=== PATIENT | male | born 1945 | race African-American/Black ===

== ENCOUNTER 2024-08-10 13:14 | Inpatient (IN) | payer MEDICARE, OTHER ==
[2024-08-10] VITALS (7 sets, daily range): BP systolic 70–157; BP diastolic 49–90; PULSE 10–125; RESP 14–31; TEMP 93.4; O2SAT 95–98
[~2024-08-10] VITALS: Ht 180.3 cm; Wt 92.2 kg
[~2024-08-10 13:14] MED LIST: ATOR10TA PO; CARB-112 PO; GABA-1308 PO
[2024-08-10] MEDS: ETOMIDATE (2MG/ML) 20ML VIAL IV ONE (13:45)
--- NOTE | 2024-08-10 13:46 | ED.PDOC ---
Altered Mental Status HPI Comments 78y M who presents to the ED via EMS for chief complaint of ALOC. EMS states pt family called EMS for well-check. Pt family states pt was last well time was 3 weeks prior and states pt normally is ambulatory and is able to perform activities of daily living. per EMS, arrived on scene and noted pt was on the floor in contracted position and altered. Pt has normal vitals with Accu check of 93 but is ax0x0. EMS states pt noted to have fecal incontinence. Pt in the ED, has stable vitals but is not alert and oriented. Pt unable to answer any other questions at this time. Chief Complaint: ALOC Time Seen by MD: 13:37 Primary Care Provider: unknown Reviewed Notes: Nurses Notes Allergies: Coded Allergies: UNOBTAINABLE (Unverified , 08/10/24) Information Source: Relative (Child), Emergency Med Personnel Mode of Arrival: EMS Past Medical History PAST MEDICAL HISTORY: Unknown Past Medical History (Other): parkinson's, per daughter Surgical History: Unknown Family History Family History: Unknown Social History Smoker: Unknown Alcohol: Unknown Drugs: Unknown Lives In: Home Constitutional: denies: chills, diaphoresis, fatigue, fever, malaise, sweats, weakness, others EENTM: denies: blurred vision, double vision, ear bleeding, ear discharge, ear drainage, ear pain, ear ringing, eye pain, eye redness, hearing loss, mouth pain, mouth swelling, nasal discharge, nose bleeding, nose congestion, nose pain, photophobia, tearing, throat pain, throat swelling, voice changes, others Respiratory: denies: cough, hemoptysis, orthopnea, SOB at rest, shortness of breath, SOB with excertion, stridor, wheezing, others Cardiovascular: denies: chest pain, dizzy spells, diaphoresis, Dyspnea on exertion, edema, irregular heart beat, left arm pain, lightheadedness, palpitations, PND, syncope, others Gastrointestinal: denies: abdomen distended, abdominal pain, blood streaked bowels, constipated, diarrhea, dysphagia, difficulty swallowing, hematemesis, melena, nausea, poor appetite, poor fluid intake, rectal bleeding, rectal pain, vomiting, others Genitourinary: denies: burning, dysuria, flank pain, frequency, hematuria, incontinence, penile discharge, penile sore, pain, testicle pain, testicle swelling, urgency, others Neurological: denies: dizziness, fainting, headache, left sided numbness, left sided weakness, numbness, paresthesia, pre-existing deficit, right sided numbness, right sided weakness, seizure, speech problems, tingling, tremors, weakness, others Musculoskeletal: denies: back pain, gout, joint pain, joint swelling, muscle pain, muscle stiffness, neck pain, others Integumetry: denies: bruises, change in color, change in hair/nails, dryness, laceration, lesions, lumps, rash, wounds, others Allergic/Immunocompromised: denies: Difficulty Healing, Frequent Infections, Hives, Itching, others Hematologic/Lymphatic: denies: anemia, blood clots, easy bleeding, easy bruising, swollen glands, others Unable to Obtain due to: Altered Mental Status All Other Systems: Reviewed and Negative Physical Exam General Appearance: Moderate Distress, Thin, Other (pt altered, pinpoint pupils, in contracted position, with noted fecal incontinence) HEENT: Other (pupiuls pin point) Neck: Full Range of Motion, Non-Tender, Normal, Normal Inspection Respiratory: Chest Non-Tender, Lungs Clear, No Accessory Muscle Use, No Respiratory Distress, Normal Breath Sounds Cardiovascular: No Edema, No JVD, No Murmur, No Gallop, Normal Peripheral Pulses, Regular Rate/Rhythm Breast Exam: Deferred Gastrointestinal: No Organomegaly, Non Tender, No Pulsatile Mass, Normal Bowel Sounds, Soft, Other (fecal incontinent) Genitalia: Deferred Pelvic: Deferred Rectal: None Extremities: Other (stage 4 decub uclers noted on L hip. left left flank and posterior lateral cw also stage 2 decub ulcers. all li,bs with flexion contracture) Neurologic: Other (unresponsive, but moves spontaneously, not following commands) Cerebellar Function: NOT DONE Reflexes: NOT DONE Skin: Wounds (left occipital, left posterior lateral chest, left flank, left gluteal decubitus ulcers, all stage 2, except the gluteal is stage 4) Lymphatic: No Adenopathy Was a procedure done? Was a procedure done?: Yes Sedation Sedation?: Yes Informed consent obtained: No Sedation start time: 13:23 Sedation end time: 13:24 Sedation total time: 1 Sedation provider statement: etomidate,40mg, versed 5mg iv given with good sedative effect Intubation Indication: Altered Mental Status Prep: No Preoxygenation Pretreated with: Other (etomidate) Informed consent obtained: No Risks/benefits/alt described: No Notes pt was successfully intubated with the assist of a bougie and on the first pass, with visualization of the Uvula. stepping off of the tracheal rings felt with advancement of the bougie. a 7.5 e was slid over the bougie with ease, condensation immediately seen with each breath, CO2 detector color changed. O2 saturation into the mid 90%. bilateral BSs heard and equal, no epigastric gurgling.cxr confirmed position. no complications Differential Diagnosis (ALOC) Differential Diagnosis: Dehydration, Hypoglycemia, DKA, Encephalopathy, Meningitis, Sepsis, Hypoxemia, Seizure, Closed Head Injury, CVA, Mass Lesion, SAH, Drug Overdose, ETOH Intoxication, Heart Failure, Renal Failure, Other (sepsis, rhabdomyolysis, exposure to cold) Other Differential Diagnosis altered mental status, cva, intracranial mass, ich, falling, rhabdomyolysis X-Ray, Labs, Meds, VS Vital Signs Date Time Temp Pulse Resp B/P (MAP) Pulse Ox O2 Delivery O2 Flow Rate FiO2 08/10/24 15:14 94.0 82 22 120/58 (78) 97 94.0 08/10/24 15:00 08/10/24 14:57 93.4 93 14 121/49 98 100 93.4 08/10/24 14:45 85 112/54 (73) 08/10/24 14:39 84 08/10/24 14:30 80 118/50 (72) 08/10/24 14:25 Mechanical Ventilator+ 100 100 08/10/24 14:18 121/49 08/10/24 14:15 85 19 121/49 (73) 08/10/24 14:00 88 24 68/34 (45) 08/10/24 13:45 93 24 92/62 (72) 08/10/24 13:30 92 14 92/54 (67) 08/10/24 13:16 93.4 93 3 118/76 (90) 98 08/10/24 13:15 93 25 109/68 (82) Lab Test 08/10/24 15:07 08/10/24 14:08 08/10/24 13:42 Range/Units Blood Gas Specimen Type Arterial Blood Gas Sample Site Right radial Blood Gas Patient Temperature 37.0 Arterial Blood Date Drawn [id number] Arterial Blood pH 7.431 7.350-7.450 Arterial Blood Partial Pressure CO2 43.2 35.0-48.0 mmHg Arterial Blood Partial Pressure O2 509.1 *H 83.0-108.0 mmHg Arterial Blood HCO3 28.1 H 21.0-28.0 mmol/L Arterial Blood Oxygen Saturation 99.7 H 94.0-98.0 % Arterial Blood Base Excess 3.3 H -2.0-3.0 mmol/L Arterial Blood Oxyhemoglobin 98.9 H 94.0-98.0 % Arterial Blood Carboxyhemoglobin 0.1 L 0.5-1.5 % Arterial Blood Methemoglobin 0.7 0.0-1.5 % Kirby Test Modified Blood Gas Total Hemoglobin 15.80 13.5-17.5 g/dL Blood Gas Set Respiration Rate 14.0 Blood Gas Modality Vent - ac FiO2 % 100.0 Blood Gas Tidal Volume 500.0 Blood Gas PEEP or CPAP 5.0 Blood Gas Critical Value Read Back Yes Blood Gas Notified Whom Dr. su staples Blood Gas Notified Time [id number] Blood Gas Notified By Dental Equipment Mechanic don garrido White Blood Count 11.3 H 4.4-10.8 10^3/uL Red Blood Count 5.88 4.5-5.90 10^6/uL Hemoglobin 17.6 H 13.5-17.5 g/dL Hematocrit 54.0 H 41.0-53.0 % Mean Corpuscular Volume 91.7 80.0-100.0 fL Mean Corpuscular Hemoglobin 30.0 28.0-32.0 pg Mean Corpuscular Hemoglobin Concent 32.7 32.0-36.0 g/dL Red Cell Distribution Width 13.5 11.8-14.3 % Platelet Count 62 L 140-450 10^3/uL Mean Platelet Volume 9.4 6.9-10.8 fL Neutrophils (%) (Auto) 90.6 H 37.0-80.0 % Lymphocytes (%) (Auto) 4.0 L 10.0-50.0 % Monocytes (%) (Auto) 5.2 0.0-12.0 % Eosinophils (%) (Auto) 0.1 0.0-7.0 % Basophils (%) (Auto) 0.1 0.0-2.0 % Neutrophils # (Auto) 10.3 H 1.6-8.6 10 ^3/uL Lymphocytes # (Auto) 0.4 0.4-5.4 10 ^3/uL Monocytes # (Auto) 0.6 0-1.3 10 ^3/uL Eosinophils # (Auto) 0 0-0.8 10 ^3/uL Basophils # (Auto) 0 0-0.2 10 ^3/uL Nucleated Red Blood Cells 0.2 % Platelet Estimate Decreased Sodium Level 170 *H 136-145 mmol/L Potassium Level 5.0 3.5-5.1 mmol/L Chloride Level 122 H 98-107 mmol/L Carbon Dioxide Level 30 20-31 mmol/L Anion Gap 18 H 5-15 Blood Urea Nitrogen 80 *H 9-23 mg/dL Creatinine 1.73 H 0.700-1.30 mg/dL Glomerular Filtration Rate Calc 40 >90 mL/min BUN/Creatinine Ratio 46.2 H 10.0-20.0 Serum Glucose 127 H 74-106 mg/dL Lactic Acid Level 0.7 0.4-2.0 mmol/L Calcium Level 10.1 8.7-10.4 mg/dL Total Bilirubin 2.0 H 0.2-1.0 mg/dL Aspartate Amino Transferase (AST) 149 H 13-40 U/L Alanine Aminotransferase (ALT) 141 H 7-40 U/L Alkaline Phosphatase 124 H 46-116 U/L Ammonia 19 11-32 umol/L Creatine Kinase 2313 H 46-171 U/L Troponin I High Sensitivity 34 </=54 ng/L Total Protein 7.5 5.7-8.2 g/dL Albumin 4.0 3.2-4.8 g/dL Urine Color Pending Urine Clarity Pending Urine pH Pending Urine Specific [place] Pending Urine Protein Pending Urine Ketones Pending Urine Blood Pending Urine Nitrite Pending Urine Bilirubin Pending Urine Urobilinogen Pending Urine Leukocyte Esterase Pending Urine RBC Pending Urine WBC Pending Urine Squamous Epithelial Cells Pending Urine Bacteria Pending Urine Glucose Pending Urine Opiates Screen Pending Urine Fentanyl Screen Pending Urine Barbiturates Screen Pending Urine Phencyclidine Screen Pending Urine Amphetamines Screen Pending Urine Benzodiazepines Screen Pending Urine Cocaine Screen Pending Urine Cannabinoids Screen Pending Current Medications Medications (Trade) Dose Ordered Sig/Akiko Route Start Time Stop Time Status Last Admin Sodium Chloride 2,250 ml @ 2,250 mls/hr ONCE ONCE IV 08/10/24 13:45 08/10/24 14:44 DC 08/10/24 13:59 Piperacillin Sod/ Tazobactam Sod 100 ml @ 100 mls/hr ONCE ONCE IV 08/10/24 14:00 08/10/24 14:59 DC 08/10/24 14:06 Midazolam HCl (Versed Injection) 5 mg ONCE ONCE IV 08/10/24 13:45 08/10/24 13:46 DC 08/10/24 13:59 Midazolam HCl 50 ml @ 1 mls/hr Q24H IV 08/10/24 14:00 08/10/24 14:18 [place] [id number] Ph: [phone] DIAGNOSTIC IMAGING Diagnostic Imaging Report : [id number] Signed PATIENT: JASEN DIXON ACCT: [id number] UNIT: [id number] : 1945 LOC: ER ROOM / BED: / AGE / SEX: 78 / M ADM STATUS: REG ER SERVICE ORDERING PHYSICIAN: NAVIN STAPLES MD PROCEDURE(s): CXRP - CHEST PORTABLE REASON: POST INTUBATION ORDER NUMBER(s): [id number], ACCESSION NUMBER(s): [id number] CHEST RADIOGRAPH Indication: POST INTUBATION Technique: Single frontal view of the chest was obtained Comparison: None FINDINGS: Lines and Tubes: Enteric tube and endotracheal tube are in satisfactory position. Lungs: No focal consolidation. Elevation of the left hemidiaphragm. Pleura: No effusion. No pneumothorax. Cardiomediastinal contours: Unremarkable Bones: No acute osseous abnormality. IMPRESSION: No acute cardiopulmonary disease. Elevation of the left hemidiaphragm. Enteric tube and endotracheal tube are in satisfactory position. ATED BY: PRETTY BALLARD DO DICTATED DATE/TIME: 08/10/24 1346 SIGNED BY: PRETTY BALLARD DO SIGNED DATE/TIME: 08/10/24 134 CC: Time of 1ST Reevaluation: 14:05 Reevaluation 1ST: Unchanged (lubrication servicer- nsr) Time of 2ND Reevaluation: 14:03 Reevaluation 2ND: Improved (pt is intubated. sepsis protocol initiated, head ct ordered. airway secured and protected. cardiac c=monitor- nsr) Time of 3RD Reevaluation: 15:43 Reevaluation 3RD: Unchanged (lubrication servicer, nsr) Patient Education/Counseling: Other (pt altered) Family Education/Counseling: No Family Present Additional Information - I reviewed the following notes from patient's past medical encounters: - The following tests were ordered, and results were reviewed by me: (Labs, X- Ray, EKG): chest x-ray, ABG, respiratory culture, EKG x3, CBC, CMP, UA, ammonia, drug screen, CK, troponin x3, blood culture, lactic acid, - Additional information was gathered from interviewing the following independent Historian: (Family, Other Providers, EMT): EMS - I reviewed and agreed with the following test results read by other provider: (X-ray, CT, US): radiologist - I discussed treatments and results with medical personnel and: (consultants, family): none pt's daughter came by and states that she only spoke to pt 3 weeks ago and can tell me no new information pt is severely dehydrated, seems to have been down for sometime. he has evidence of renal failure, contractions, decubitus ulcers pt does not have evidence of a stroke. he likely fell and was down for many days or longer. now he has severe sepsis, hypernatremia, renal failure, encephalopathy, likely septic from the gluteal wound. he will be admitted to ICU Sepsis Sepsis Reasesment Focused Exam Sepsis focused exam: focus exam completed (pt remains intubated, and unchanged), time: (1624) Departure 1 Departure Time of Disposition: 15:57 Impression: Primary Impression: Altered mental state Qualified Codes: R40.0 - Somnolence Additional Impressions: Decubitus ulcers Qualified Codes: L89.103 - Pressure ulcer of unspecified part of back, stage 3 Sepsis Qualified Codes: A41.9 - Sepsis, unspecified organism Severe dehydration Hypernatremia Renal failure Qualified Codes: N19 - Unspecified kidney failure Rhabdomyolysis Qualified Codes: M62.82 - Rhabdomyolysis Disposition: 09 ADMITTED INPATIENT Admit to: ICU Condition: Critical Critical Care Note Critical Care Time?: Yes (90 min-critical care time only) Critical care comment: due to concerns for patient's condition deteriorating, the care required my highest level of attention and readiness to intervene. i reviewed any external notes, communicatd with medical personnel, assessed the pt, ordered the proper tests and treatments, and reassessed for response, formulated a plan of care. the critical care time excludes any procedures Stability Stability form required: No Heart Score Heart Score: Heart Score Response (Comments) Value History N/A 0 EKG N/A 0 Age N/A 0 Risk Factors N/A 0 Troponin N/A 0 Total 0 I personally scribed for NAVIN STAPLES MD ([facility] on 08/10/24 at 13:46. Electronically submitted by Viki Kimbrough ([facility] I personally scribed for NAVIN STAPLES MD ([facility] on 08/10/24 at 14:22. Electronically submitted by Viki Kimbrough ([facility] [place] NAVIN STAPLES MD Aug 10, 2024 13:46
[2024-08-10] MEDS: MIDAZOLAM HCL 5 MG/ML-1ML VIAL IV ONE (13:59)
[2024-08-10] MEDS: SODIUM CHLORIDE 0.9% 2,250 ML IV ONE (13:59)
[2024-08-10] MEDS: PIPERACILLIN-TAZO 4.5GM 100 ML IV ONE (14:06)
[2024-08-10] MEDS: MIDAZOLAM DRIP 50 mg/50mL 50 ML IV ONE (14:17)
[2024-08-10] MEDS: MIDAZOLAM DRIP 50 mg/50mL 50 ML IV SCH (14:18)
--- NOTE | 2024-08-10 14:41 | ECG ---
[facility] Test Date: 2024-08-10 Test Time: 14:39:23 Pat Name: JASEN DIXON Department: ER Room: [address] [place] [address] Gender: M Pipe Changer: ULYSSES : 1945 Requested By: NAVIN AGUILAR Order Number: [id number] Reading MD: Mikael Briscoe Measurements Intervals [place] Rate: 84 P: 92 FL: 133 QRS: 82 QRSD: 105 T: 66 QT: 422 QTc: 499 Interpretive Statements Sinus rhythm Borderline right axis deviation Nonspecific T abnormalities, anterior leads Borderline prolonged QT interval Electronically Signed On 08-11-2024 14:19:49 PST by Mikael Briscoe Please click the below link to view image of tracing.
[2024-08-10 14:43] LABS: Eosinophils # (auto) 0 10 ^3/uL (0-0.8); Eosinophils % (auto) 0.1 % (0.0-7.0); Hemoglobin 17.6 g/dL (13.5-17.5); Lymphocytes # (auto) 0.4 10 ^3/uL (0.4-5.4); Monocytes # (auto) 0.6 10 ^3/uL (0-1.3); Platelet Count (auto) 62 10^3/uL (140-450); White Blood Cell 11.3 10^3/uL (4.4-10.8)
[2024-08-10 14:44] LABS: Basophils # (auto) 0 10 ^3/uL (0-0.2); Basophils % (auto) 0.1 % (0.0-2.0); Mean Corpuscular Hgb Conc. 32.7 g/dL (32.0-36.0); Mean Corpuscular Volume 91.7 fL (80.0-100.0); Monocytes % (auto) 5.2 % (0.0-12.0); Neutrophils # (auto) 10.3 10 ^3/uL (1.6-8.6); Neutrophils % (auto) 90.6 % (37.0-80.0); Nucleated Red Blood Cells % 0.2 %; Red Blood Cells 5.88 10^6/uL (4.5-5.90); Red Cell Distribution Width 13.5 % (11.8-14.3)
[2024-08-10 14:58] LABS: Platelet Estimate Decreased
[2024-08-10] MEDS: VANCOMYCIN 1GM/250ML KIT 250 ML IV ONE (15:00)
[2024-08-10 15:38] LABS: Anion Gap 18 (5-15); BUN/Creatinine Ratio 46.2 (10.0-20.0); Calcium 10.1 mg/dL (8.7-10.4); Carbon Dioxide 30 mmol/L (20-31)
[2024-08-10 15:39] LABS: Total Protein 7.5 g/dL (5.7-8.2)
--- NOTE | 2024-08-10 15:53 | DVH ---
EXAM: CT Head Without Intravenous Contrast CLINICAL INDICATION: altered TECHNIQUE: Axial computed tomography images of the head/brain without intravenous contrast. This CT exam was performed using one or more of the following dose reduction techniques: automated exposure control, adjustment of the mA and/or kV according to patient size, and/or use of iterative reconstru ction technique. RADIATION DOSE: CTDlvol= 67 mGy, DLP= 1325 mGy-cm COMPARISON: None FINDINGS: BRAIN AND EXTRA-AXIAL SPACES: The cerebral and cerebellar sulci are prominent consistent with brain atrophy. Areas of decreased attenuation in the deep cerebral white matter are consistent with small vessel ischemic/degenerative changes. No acute intracranial hemorrhage, midline shift or mass effect . BONES/JOINTS: Unremarkable. No acute fracture. SOFT TISSUES: Unremarkable. SINUSES: Unremarkable as visualized. No acute sinusitis. MASTOID AIR CELLS: Unremarkable as visualized. No mastoid effusion. OTHER FINDINGS: If symptoms persists, further evaluation with MRI is recommended. . . . IMPRESSION: 1. No acute intracranial hemorrhage, midline shift or mass effect. 2. Generalized brain atrophy. 3. Small vessel ischemic/degenerative changes. 4. If symptoms persists, further evaluation with MRI is recommended. . HS:Y
[2024-08-10 15:55] LABS: Alanine Aminotransferase 141 U/L (7-40); Alkaline Phosphatase 124 U/L (46-116); Aspartate Aminotransferase 149 U/L (13-40); Chloride 122 mmol/L (98-107); Creatine Kinase IFCC 2313 U/L (46-171); Glucose 127 mg/dL (74-106)
[2024-08-10 16:00] LABS: Blood Urea Nitrogen 80 mg/dL (9-23); Sodium 170 mmol/L (136-145)
[2024-08-10 16:12] LABS: Base Excess 3.3 mmol/L (-2.0-3.0)
[2024-08-10] MEDS ORDERED: VANCOMYCIN PER PHARMACY 0 MG IV SCH (16:15)
[2024-08-10 16:24] LABS: Amphetamine Screen, Urine Neg (NEGATIVE); Barbiturate Scree,Urine Neg (NEGATIVE); Benzodiazephine Screen, Urine Neg (NEGATIVE); Cocaine Screen, Urine Neg (NEGATIVE); Opiate Scree,Urine Neg (NEGATIVE); Phencyclidine Screen, Urine Neg (NEGATIVE)
[2024-08-10 16:30] LABS: Urine Bacteria FEW /hpf (None Seen); Urine Blood Negative /uL (Negative); Urine Clarity Turbid (Clear); Urine Color Dark-Yellow (Yellow); Urine Hyaline Cast FEW /lpf (0 - 2); Urine Mucus FEW (None Seen); Urine Protein, UAD Negative (Negative); Urine Specific Gravity 1.021 (1.001-1.035); Urine Squamous Epithelial Cell FEW /hpf (<5); Urine Urobilinogen 4 mg/dL (Negative); Urine WBC 10 /hpf (0 - 3)
[2024-08-10 17:03] LABS: Cannabinoid Screen, Urine Neg (NEGATIVE)
[2024-08-10] MEDS: NOREPINEPHRINE 8 MG/250ML KIT 250 ML IV SCH (17:14)
[2024-08-10] MEDS: NOREPINEPHRINE 8 MG/250ML KIT 250 ML IV ONE (17:15)
--- NOTE | 2024-08-10 20:08 | DVH ---
EXAM: XY CHEST PORTABLE CLINICAL HISTORY: CENTRAL LINE PLACEMENT TECHNIQUE: Single AP view of the chest WID: COMPARISON: XY CHEST PORTABLE on DOS: 08/10/24 FINDINGS: Lines and tubes: Right IJ central venous catheter with the tip projecting over the mid SVC. Endotrach eal tube with the tip projecting 4.4 cm above the anastasia. There is a gastric tube descending beneath the level of the diaphragm and tip not visualized in field of view. Chest: The heart size and pulmonary vasculature is within normal limits. No pleural effusion, pneumothorax, or consolidation. The osseous structures are grossly intact. IMPRESSION: 1. No acute cardiopulmonary abnormality. 2. Right IJ central venous catheter with tip projecting over the mid SVC. 3. Endotracheal tube projects 4.4 cm above the anastasia. 4. Gastric tube descends beneath the level of the diaphragm and tip not visualized in field of view.
--- NOTE | 2024-08-10 20:35 | DVHNC2 ---
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) Indication: Other (severe sepsis) Room prepared for procedure: Yes Sheet Combining Operator performed hand hygien: Yes Maximal sterile barrier precau: Mask/Eye shield, Sterile gown, Cap, Sterlie gloves, Large sterlie drape Skin Preparation: Chlorhexidine gluconate, Providine iodine Skin preparation completely dr: Yes Insertion site: Right, Supraclavicular Central line catheter type: [id number] dialysis Number of lumens: 3 Central line exchanged over a: Yes Antiseptic ointment applied to: Yes Post Assessment: Chest X-Ray, Proper placement, No Pneumothorax Informed consent obtained: Yes Risks/benefits/alt described: Yes Notes PROCEDURE VP LAB: MELLISSA HWANG, PGY1 ATTENDING PHYSICIAN: CONSENT: During the informed consent discussion regarding the procedure, or treatment, I explained the following to the patient/designee: a. Nature of the procedure or treatment and who will perform the procedure or treatment. b. Necessity for procedure and the possible benefits. c. Risks and complications (most common and serious). d. Alternative treatments and the risks, benefits and side effects of each (including no treatment). e. Likelihood of the patient achieving his/her goals without this procedure and surgery treatment. f. Problems that might occur during the recuperation. PROCEDURE SUMMARY: The [facility] Central Line Insertion Practices form was completed by an independent observer starting with the first handwash prior to starting sterile technique. A time out was performed. My hands were washed immediately prior to the pro cedure. I wore a surgical cap, mask with protective eyewear, full gown and sterile gloves throughout the procedure. The patient was placed in Trendelenburg position. RIGHT chest region was prepped using chlorhexidine scrub and draped in sterile fashion using a full drape and sterile probe cover and sterile gel employed. The medial and lateral heads of the sternocleidomastoid muscle were identified as was the carotid pulse. The Internal Jugular vein was identified using the ultrasound. Anesthesia was achieved over the vein using 1% lidocaine. Using real-time out of plane guidance, the introducer needle was inserted into the Internal Jugular vein under direct ultrasound visualization. Venous blood was withdrawn. The syringe was removed and a guidewire was advanced into the introducer needle. The guidewire was visualized in the Internal Jugular Vein by ultrasound. A small i ncision was made at the skin surface with a scalpel and the introducer needle was exchanged for a dilator over the guidewire. After appropriate dilation was obtained. The wire was removed and the catheter was sutured in place. A sterile sorbaview shield was placed over the catheter at the insertion site. The patient tolerated the procedure without any hemodynamic compromise. At time of procedure completion, all ports aspirated and flushed properly. Post-procedure chest x-ray is pending at this time. Estimated blood loss is 5ml. Date of Service: Aug 10, 2024 Billing Provider: ASHU MARY MD Common Visit Codes: PROCEDURE ONLY Procedure Codes: 78064-CRCLHR NON-TUNNEL CV CATH MELLISSA MONTOYA RESIDENT Aug 10, 2024 20:35 ASHU MARY MD Aug 11, 2024 11:41
[2024-08-10] MEDS: fentaNYL Drip 2500mCg/250mlNS 250 ML IV SCH (21:30)
[2024-08-10 21:46] LABS: Potassium 4.4 mmol/L (3.5-5.1)
[2024-08-10 21:47] LABS: Anion Gap 14 (5-15); Calcium 9.1 mg/dL (8.7-10.4); Carbon Dioxide 27 mmol/L (20-31)
[2024-08-10 21:52] LABS: BUN/Creatinine Ratio 42.5 (10.0-20.0)
[2024-08-10] MEDS ORDERED: VANCOMYCIN 1GM/250ML KIT 200 ML IV SCH (22:00)
[2024-08-10 22:18] LABS: Chloride 127 mmol/L (98-107); Glucose 136 mg/dL (74-106)
[2024-08-10 22:20] LABS: Blood Urea Nitrogen 85 mg/dL (9-23); Sodium 168 mmol/L (136-145)
--- NOTE | 2024-08-10 22:34 | DVHINCON2 ---
Date of service: Aug 10, [address] Newman Reason for Consultation Acute respiratory failure History of Present Illness 78-year-old man history unknown who was brought in by EMS due to acute altered level of consciousness. Family called EMS for a well check. He was last seen well three weeks prior. He was normally ambulatory. He was perform activities of daily living. Per EMS report patient was found on the floor in a contracted position and altered. He was not oriented. He was noted to have fecal incontinence. He was currently sedated, intubated on mechanical ventilator. Pulmonary consultation is called due to acute respiratory failure mechanical ventilator management. Review of systems: 14 point review of systems unable to be obtained due to patient's critical condition. Past medical history: Parkinson's Past surgical history: Unable to obtain due to patient's critical condition. Medications: Reviewed Allergies: Unobtainable Family history: Unable to obtain due to patient's critical condition. Social history: He was at home. Rest of social history unknown. Allergies: Coded Allergies: UNOBTAINABLE (Unverified , 08/10/24) Current Medications Current Medications Medications (Trade) Dose Ordered Sig/Akiko Route PRN Reason Start Time Stop Time Status Last Admin Vancomycin HCl 200 ml @ 200 mls/hr Q12HR IV 08/10/24 22:00 UNV Midazolam HCl 50 ml @ 1 mls/hr Q24H IV 08/10/24 14:00 08/10/24 14:18 Vancomycin HCl 0 ml @ 0 mls/hr UD IV 08/10/24 16:15 Norepinephrine Bitartrate 250 ml @ 3.75 mls/hr Q24H IV 08/10/24 17:00 08/10/24 17:14 Pantoprazole Sodium (Protonix) 40 mg DAILY IV 08/11/24 10:00 Fentanyl Citrate 250 ml @ 2.5 mls/hr Q24H IV 08/10/24 21:30 Meropenem 50 ml @ 17 mls/hr Q12HR IV 08/10/24 22:00 Vital Signs Vital Signs Date Time Temp Pulse Resp B/P (MAP) Pulse Ox O2 Delivery O2 Flow Rate FiO2 08/10/24 20:23 122 23 70/51 (57) 95 30 08/10/24 18:45 97.2 97.2 08/10/24 14:25 Mechanical Ventilator+ Physical Exam Gen.: Patient lying in bed in medical ICU. Sedated, intubated on mechanical ventilator. Head: Normocephalic, atraumatic. Eyes: PERRLA. Ears: Normal external anatomy. Throat: Endotracheal tube and orogastric tube in place. Neck: Supple, trachea midline. Chest: Transmitted breath sounds bilaterally. Decreased air entry bilaterally. No wheezing. Bibasilar crackles. Cardio vascular: Positive S1, positive S2. Regular rate and rhythm. Abdomen: Positive bowel sounds in all 4 quadrants. Soft, nontender, nondistended. : Welch in place. Normal external genitalia. Rectal: Deferred Skin: Warm, dry. Intact. Extremities: 2+ radial pulses bilaterally. No lower extremity edema. Neuro: Sedated. Labs/Diagnostic Data Labs Test 08/10/24 20:30 08/10/24 15:07 08/10/24 14:08 08/10/24 13:42 Range/Units Sodium Level 168 *H 136-145 mmol/L Potassium Level 4.4 3.5-5.1 mmol/L Chloride Level 127 H 98-107 mmol/L Carbon Dioxide Level 27 20-31 mmol/L Anion Gap 14 5-15 Blood Urea Nitrogen 85 *H 9-23 mg/dL Creatinine 2.00 H 0.700-1.30 mg/dL Glomerular Filtration Rate Calc 34 >90 mL/min BUN/Creatinine Ratio 42.5 H 10.0-20.0 Serum Glucose 136 H 74-106 mg/dL Calcium Level 9.1 8.7-10.4 mg/dL Troponin I High Sensitivity 42 </=54 ng/L Blood Gas Specimen Type Arterial Blood Gas Sample Site Right radial Blood Gas Patient Temperature 37.0 Arterial Blood Date Drawn [id number] Arterial Blood pH 7.431 7.350-7.450 Arterial Blood Partial Pressure CO2 43.2 35.0-48.0 mmHg Arterial Blood Partial Pressure O2 509.1 *H 83.0-108.0 mmHg Arterial Blood HCO3 28.1 H 21.0-28.0 mmol/L Arterial Blood Oxygen Saturation 99.7 H 94.0-98.0 % Arterial Blood Base Excess 3.3 H -2.0-3.0 mmol/L Arterial Blood Oxyhemoglobin 98.9 H 94.0-98.0 % Arterial Blood Carboxyhemoglobin 0.1 L 0.5-1.5 % Arterial Blood Methemoglobin 0.7 0.0-1.5 % Kirby Test Modified Blood Gas Total Hemoglobin 15.80 13.5-17.5 g/dL Blood Gas Set Respiration Rate 14.0 Blood Gas Modality Vent - ac FiO2 % 100.0 Blood Gas Tidal Volume 500.0 Blood Gas PEEP or CPAP 5.0 Blood Gas Critical Value Read Back Yes Blood Gas Notified Whom Dr. su staples Blood Gas Notified Time [id number] Blood Gas Notified By [employer] Supervisor don garrido White Blood Count 11.3 H 4.4-10.8 10^3/uL Red Blood Count 5.88 4.5-5.90 10^6/uL Hemoglobin 17.6 H 13.5-17.5 g/dL Hematocrit 54.0 H 41.0-53.0 % Mean Corpuscular Volume 91.7 80.0-100.0 fL Mean Corpuscular Hemoglobin 30.0 28.0-32.0 pg Mean Corpuscular Hemoglobin Concent 32.7 32.0-36.0 g/dL Red Cell Distribution Width 13.5 11.8-14.3 % Platelet Count 62 L 140-450 10^3/uL Mean Platelet Volume 9.4 6.9-10.8 fL Neutrophils (%) (Auto) 90.6 H 37.0-80.0 % Lymphocytes (%) (Auto) 4.0 L 10.0-50.0 % Monocytes (%) (Auto) 5.2 0.0-12.0 % Eosinophils (%) (Auto) 0.1 0.0-7.0 % Basophils (%) (Auto) 0.1 0.0-2.0 % Neutrophils # (Auto) 10.3 H 1.6-8.6 10 ^3/uL Lymphocytes # (Auto) 0.4 0.4-5.4 10 ^3/uL Monocytes # (Auto) 0.6 0-1.3 10 ^3/uL Eosinophils # (Auto) 0 0-0.8 10 ^3/uL Basophils # (Auto) 0 0-0.2 10 ^3/uL Nucleated Red Blood Cells 0.2 % Platelet Estimate Decreased Lactic Acid Level 0.7 0.4-2.0 mmol/L Total Bilirubin 2.0 H 0.2-1.0 mg/dL Aspartate Amino Transferase (AST) 149 H 13-40 U/L Alanine Aminotransferase (ALT) 141 H 7-40 U/L Alkaline Phosphatase 124 H 46-116 U/L Ammonia 19 11-32 umol/L Creatine Kinase 2313 H 46-171 U/L Total Protein 7.5 5.7-8.2 g/dL Albumin 4.0 3.2-4.8 g/dL Urine Color Dark-yellow Yellow Urine Clarity Turbid H Clear Urine pH 5.0 5.0-9.0 Urine Specific [place] 1.021 1.001-1.035 Urine Protein Negative Negative Urine Ketones Negative Negative Urine Blood Negative Negative /uL Urine Nitrite Negative Negative Urine Bilirubin Negative Negative Urine Urobilinogen 4 H Negative mg/dL Urine Leukocyte Esterase Trace Negative /uL Urine RBC 16 0 - 3 /hpf Urine WBC 10 0 - 3 /hpf Urine Squamous Epithelial Cells Few <5 /hpf Urine Bacteria Few H None Seen /hpf Urine Hyaline Casts Few 0 - 2 /lpf Urine Mucus Few None Seen Urine Glucose Normal Normal mg/dL Urine Opiates Screen Neg NEGATIVE Urine Fentanyl Screen Neg NEGATIVE Urine Barbiturates Screen Neg NEGATIVE Urine Phencyclidine Screen Neg NEGATIVE Urine Amphetamines Screen Neg NEGATIVE Urine Benzodiazepines Screen Neg NEGATIVE Urine Cocaine Screen Neg NEGATIVE Urine Cannabinoids Screen Neg NEGATIVE Assessment Impression: Acute hypoxic respiratory failure On mechanical ventilator Leukocytosis Hypernatremia Parkinson's disease Acute metabolic encephalopathy Decubitus ulcers Sepsis Rhabdomyolysis Acute kidney injury Plan: s/p intubation on mechanical ventilator CT head: No acute intracranial hemorrhage or stroke. CXR image and report reviewed. Devices in place. No acute opacities. No pleural effusion or pneumothorax. ABG reviewed. Compensated. On assist control with respiratory rate of 14, tidal volume 500, peep of five, FiO2 at 100%. Titrate FIO2 to keep O2 saturation above 92%. VAP bundle Daily ABG and CXR while intubated. Sedate for ventilatory synchrony Start pressors if necessary for hemodynamic support. On pressors for hemodynamic support. Titrate to keep MAP above 65 mmHg/SBP above 90 mmHg. Continue antibiotics. F/u cultures. Monitor renal function due to Acute kidney injury. Monitor electrolytes. Supplement as necessary. Monitor sodium due to hypernatremia, sodium 168 IV fluid hydration Do not over correct sodium. Nutritional support. Accucheks, ISS. GI prophylaxis - Protonix DVT prophylaxis. Condition: Critical Prognosis: Poor given multiple comorbidities. Rest of plan per hospitalist and other consultants. A total of 36 minutes of critical care time was spent reviewing the patient record, examining the patient, making a diagnostic and therapeutic plan, discussing this plan with the medical personnel, following up on diagnostic studies and following the patient for clinical stability excluding any and all procedures. At least 50% of this time was spent in direct, [id number] contact. Thank you Dr. Newman for allowing me to participate in this patient's care. Further recommendations will depend on patient's clinical course. Please do not hesitate to contact me if you have any questions or concerns. This medical document was created using an electronic medical record system with [employer] dictation system. Although this document has been carefully reviewed, there may still be some phonetic and typographical errors. These areas are purely typographical due to imperfections of the software programs, and do not reflect any compromise in the patient's medical care. Plan discussed with: Other () REY REAGAN MD Aug 10, 2024 22:34
[2024-08-10] MEDS: D5W/SOD CHL 0.45% 1,000 ML IV ONE (22:48)
[2024-08-10] MEDS: MEROPENEM 1GM IVPB 50 ML IV SCH (22:55)
[2024-08-10] MEDS: PANTOPRAZOLE 40 MG/10 ML VIAL INJ IV ONE (23:05)
[2024-08-11] VITALS (14 sets, daily range): BP systolic 89–134; BP diastolic 54–78; PULSE 99–126; RESP 20–32; O2SAT 96–100
[2024-08-11] MEDS: ACETAMINOPHEN 650 MG RECT SUPP PR PRN (01:13)
[2024-08-11 03:31] LABS: Eosinophils # (auto) 0 10 ^3/uL (0-0.8); Red Cell Distribution Width 13.9 % (11.8-14.3)
[2024-08-11 03:33] LABS: Basophils # (auto) 0.1 10 ^3/uL (0-0.2); Basophils % (auto) 0.4 % (0.0-2.0); Eosinophils % (auto) 0.2 % (0.0-7.0); Hematocrit 47.3 % (41.0-53.0); Hemoglobin 15.5 g/dL (13.5-17.5); Lymphocytes # (auto) 1.4 10 ^3/uL (0.4-5.4); Lymphocytes % (auto) 8.8 % (10.0-50.0); Mean Corpuscular Hemoglobin 29.8 pg (28.0-32.0); Mean Corpuscular Hgb Conc. 32.7 g/dL (32.0-36.0); Monocytes # (auto) 0.9 10 ^3/uL (0-1.3); Monocytes % (auto) 5.4 % (0.0-12.0); Neutrophils # (auto) 13.7 10 ^3/uL (1.6-8.6); Neutrophils % (auto) 85.2 % (37.0-80.0); Nucleated Red Blood Cells % 0.2 %; Platelet Count (auto) 51 10^3/uL (140-450); Red Blood Cells 5.19 10^6/uL (4.5-5.90); White Blood Cell 16.1 10^3/uL (4.4-10.8)
[2024-08-11 03:47] LABS: Albumin 3.4 g/dL (3.2-4.8); Alkaline Phosphatase 109 U/L (46-116); Anion Gap 12 (5-15); Calcium 9.2 mg/dL (8.7-10.4); Carbon Dioxide 27 mmol/L (20-31); Potassium 4.9 mmol/L (3.5-5.1)
[2024-08-11 03:48] LABS: Total Protein 6.2 g/dL (5.7-8.2)
[2024-08-11 03:58] LABS: INR 1.47 (0.9-1.15); Partial Thromboplastin Time 25.6 SEC (24.5-34.5); Prothrombin Time 15.1 sec (9.3-11.8)
[2024-08-11 04:00] LABS: Alanine Aminotransferase 113 U/L (7-40); Aspartate Aminotransferase 134 U/L (13-40); Bilirubin, Total 2.7 mg/dL (0.2-1.0); Chloride 126 mmol/L (98-107); Creatine Kinase IFCC 2525 U/L (46-171); Glucose 173 mg/dL (74-106); Magnesium 3.2 mg/dL (1.6-2.6)
[2024-08-11 04:01] LABS: Sodium 165 mmol/L (136-145)
[2024-08-11] MEDS: FREE WATER GT ONE (07:30)
[2024-08-11 07:56] LABS: BUN/Creatinine Ratio 41.5 (10.0-20.0)
[2024-08-11 08:14] LABS: Blood Urea Nitrogen 105 mg/dL (9-23)
--- NOTE | 2024-08-11 08:52 | DVHHP2 ---
History of Present Illness Reason for Visit: ALOC History of Present Illness 78 year old male was found at home on the floor, EMS were called for a well- check because last time family was in touch with him was 3 weeks before EMS found him contracted and altered, incontinent Was admitted to ICU intubated, on vasopressors Past Medical History Parkinson's disease Review of Systems Neurological: Weakness, Confusion Allergies: Coded Allergies: UNOBTAINABLE (Unverified , 08/10/24) Medications Current Medications Medications Dose Ordered Sig/Akiko Route Start Time Stop Time Status Last Admin Dose Admin Vancomycin HCl 200 ml @ 200 mls/hr Q12HR IV 08/10/24 22:00 UNV Midazolam HCl 50 ml @ 1 mls/hr Q24H IV 08/10/24 14:00 08/10/24 14:18 1 MLS/HR Vancomycin HCl 0 ml @ 0 mls/hr UD IV 08/10/24 16:15 Norepinephrine Bitartrate 250 ml @ 3.75 mls/hr Q24H IV 08/10/24 17:00 08/10/24 17:14 3.75 MLS/HR Pantoprazole Sodium 40 mg DAILY IV 08/11/24 10:00 Fentanyl Citrate 250 ml @ 2.5 mls/hr Q24H IV 08/10/24 21:30 Meropenem 50 ml @ 17 mls/hr Q12HR IV 08/10/24 22:00 08/10/24 22:55 17 MLS/HR Acetaminophen 650 mg Q6HP PRN DE 08/10/24 23:30 08/11/24 01:13 650 MG Purified Water 250 ml Q6HR GT 08/11/24 12:00 Exam Vital Signs Vital Signs Date Time Temp Pulse Resp B/P (MAP) Pulse Ox O2 Delivery O2 Flow Rate FiO2 08/11/24 07:04 109 24 134/68 (90) 100 30 08/11/24 07:00 98.6 98.6 08/10/24 20:00 Mechanical Ventilator+ General Appearance: Other (intubated and sedated) Respiratory: Clear to auscultation Cardiovascular: Regular rate, Normal S1 Extremities: No edema Labs/Xrays Labs Test 08/11/24 03:10 08/10/24 20:30 08/10/24 15:07 08/10/24 14:08 Range/Units White Blood Count 16.1 #H 4.4-10.8 10^3/uL Red Blood Count 5.19 4.5-5.90 10^6/uL Hemoglobin 15.5 13.5-17.5 g/dL Hematocrit 47.3 # 41.0-53.0 % Mean Corpuscular Volume 91.0 80.0-100.0 fL Mean Corpuscular Hemoglobin 29.8 28.0-32.0 pg Mean Corpuscular Hemoglobin Concent 32.7 32.0-36.0 g/dL Red Cell Distribution Width 13.9 11.8-14.3 % Platelet Count 51 L 140-450 10^3/uL Mean Platelet Volume 9.5 6.9-10.8 fL Neutrophils (%) (Auto) 85.2 H 37.0-80.0 % Lymphocytes (%) (Auto) 8.8 L 10.0-50.0 % Monocytes (%) (Auto) 5.4 0.0-12.0 % Eosinophils (%) (Auto) 0.2 0.0-7.0 % Basophils (%) (Auto) 0.4 0.0-2.0 % Neutrophils # (Auto) 13.7 H 1.6-8.6 10 ^3/uL Lymphocytes # (Auto) 1.4 0.4-5.4 10 ^3/uL Monocytes # (Auto) 0.9 0-1.3 10 ^3/uL Eosinophils # (Auto) 0 0-0.8 10 ^3/uL Basophils # (Auto) 0.1 0-0.2 10 ^3/uL Nucleated Red Blood Cells 0.2 % Prothrombin Time 15.1 H 9.3-11.8 sec Prothrombin Time INR 1.47 H 0.9-1.15 Activated Partial Thromboplast Time 25.6 24.5-34.5 SEC Sodium Level 165 *H 136-145 mmol/L Potassium Level 4.9 3.5-5.1 mmol/L Chloride Level 126 H 98-107 mmol/L Carbon Dioxide Level 27 20-31 mmol/L Anion Gap 12 5-15 Blood Urea Nitrogen 105 #*H 9-23 mg/dL Creatinine 2.53 H 0.700-1.30 mg/dL Glomerular Filtration Rate Calc 26 >90 mL/min BUN/Creatinine Ratio 41.5 H 10.0-20.0 Serum Glucose 173 H 74-106 mg/dL Calcium Level 9.2 8.7-10.4 mg/dL Magnesium Level 3.2 H 1.6-2.6 mg/dL Total Bilirubin 2.7 H 0.2-1.0 mg/dL Aspartate Amino Transferase (AST) 134 H 13-40 U/L Alanine Aminotransferase (ALT) 113 H 7-40 U/L Alkaline Phosphatase 109 46-116 U/L Ammonia 32 11-32 umol/L Creatine Kinase 2525 H 46-171 U/L Total Protein 6.2 5.7-8.2 g/dL Albumin 3.4 3.2-4.8 g/dL Thyroid Stimulating Hormone (TSH) 4.48 0.55-4.78 uIU/mL Random Vancomycin Level 11.8 H 5-10 ug/mL Troponin I High Sensitivity 42 </=54 ng/L Blood Gas Specimen Type Arterial Blood Gas Sample Site Right radial Blood Gas Patient Temperature 37.0 Arterial Blood Date Drawn [id number] Arterial Blood pH 7.431 7.350-7.450 Arterial Blood Partial Pressure CO2 43.2 35.0-48.0 mmHg Arterial Blood Partial Pressure O2 509.1 *H 83.0-108.0 mmHg Arterial Blood HCO3 28.1 H 21.0-28.0 mmol/L Arterial Blood Oxygen Saturation 99.7 H 94.0-98.0 % Arterial Blood Base Excess 3.3 H -2.0-3.0 mmol/L Arterial Blood Oxyhemoglobin 98.9 H 94.0-98.0 % Arterial Blood Carboxyhemoglobin 0.1 L 0.5-1.5 % Arterial Blood Methemoglobin 0.7 0.0-1.5 % Kirby Test Modified Blood Gas Total Hemoglobin 15.80 13.5-17.5 g/dL Blood Gas Set Respiration Rate 14.0 Blood Gas Modality Vent - ac FiO2 % 100.0 Blood Gas Tidal Volume 500.0 Blood Gas PEEP or CPAP 5.0 Blood Gas Critical Value Read Back Yes Blood Gas Notified Whom Dr. su staples Blood Gas Notified Time [id number] Blood Gas Notified By Director Game don garrido Platelet Estimate Decreased Lactic Acid Level 0.7 0.4-2.0 mmol/L Test 08/10/24 13:42 Range/Units Urine Color Dark-yellow Yellow Urine Clarity Turbid H Clear Urine pH 5.0 5.0-9.0 Urine Specific [place] 1.021 1.001-1.035 Urine Protein Negative Negative Urine Ketones Negative Negative Urine Blood Negative Negative /uL Urine Nitrite Negative Negative Urine Bilirubin Negative Negative Urine Urobilinogen 4 H Negative mg/dL Urine Leukocyte Esterase Trace Negative /uL Urine RBC 16 0 - 3 /hpf Urine WBC 10 0 - 3 /hpf Urine Squamous Epithelial Cells Few <5 /hpf Urine Bacteria Few H None Seen /hpf Urine Hyaline Casts Few 0 - 2 /lpf Urine Mucus Few None Seen Urine Glucose Normal Normal mg/dL Urine Opiates Screen Neg NEGATIVE Urine Fentanyl Screen Neg NEGATIVE Urine Barbiturates Screen Neg NEGATIVE Urine Phencyclidine Screen Neg NEGATIVE Urine Amphetamines Screen Neg NEGATIVE Urine Benzodiazepines Screen Neg NEGATIVE Urine Cocaine Screen Neg NEGATIVE Urine Cannabinoids Screen Neg NEGATIVE Assessment/Plan Assessment/Plan Acute hypoxic respiratory failure Metabolic encephalopathy Sepsis with septic shock Severe hypernatremia Severe dehydration DAYLIN due to vasomotor nephropathy Rhabdomyolysis Parkinson's disease Decubitus ulcer PLAN: Admit to ICU Levophed drip Sedation as needed Blood Cx Urine Cx IV antibiotics Mechanical ventilation Pulmonary consult Nephrology consult IV fluids Add Free Water per NG tube GI prophylaxis: Protonix Plan discussed with: Other My Orders Orders - JELENA GAINES MD Procedure Category Date Status Time Admit ADMIT 08/10/24 Transmitted 21:12 Pantoprazole PHA 08/11/24 In Process (Protonix) 10:00 *Consult CONS 08/10/24 Transmitted / 21:14 Fentanyl Drip PHA 08/10/24 In Process 2500mcg/250mlns 21:30 Rass Sedation Scale JOHN 08/10/24 In Process 21:20 Meropenem 1gm Ivpb PHA 08/10/24 In Process (Merrem 1gm/ Ns) 22:00 *Dr. [facility] CONS 08/11/24 Transmitted -[place] 07:23 Free Water PHA 08/11/24 In Process 12:00 Date of Service: Aug 11, 2024 Billing Provider: JELENA GAINES MD Common Visit Codes: NOT BILLABLE JELENA GAINES MD Aug 11, 2024 08:52
[2024-08-11] MEDS: PANTOPRAZOLE 40 MG/10 ML VIAL INJ IV SCH (10:42)
--- NOTE | 2024-08-11 11:37 | DVHINCON2 ---
Date of service: Aug 11, [address] Newman Reason for Consultation Acute kidney injury History of Present Illness Patient is a 78-year-old male with unknown past medical history who was admitted because found down unresponsive at his home with fecal continence by his attorney at law. Patient currently intubated on ventilator on admission patient found to have elevated BUN creatinine nephrology is consulted for acute kidney injury Past Medical History Unknown Past Surgical History Unknown Allergies: Coded Allergies: UNOBTAINABLE (Unverified , 08/10/24) Current Medications Current Medications Medications (Trade) Dose Ordered Sig/Akiko Route PRN Reason Start Time Stop Time Status Last Admin Vancomycin HCl 200 ml @ 200 mls/hr Q12HR IV 08/10/24 22:00 UNV Midazolam HCl 50 ml @ 1 mls/hr Q24H IV 08/10/24 14:00 08/10/24 14:18 Vancomycin HCl 0 ml @ 0 mls/hr UD IV 08/10/24 16:15 Norepinephrine Bitartrate 250 ml @ 3.75 mls/hr Q24H IV 08/10/24 17:00 08/11/24 09:01 Pantoprazole Sodium (Protonix) 40 mg DAILY IV 08/11/24 10:00 08/11/24 10:42 Fentanyl Citrate 250 ml @ 2.5 mls/hr Q24H IV 08/10/24 21:30 Meropenem 50 ml @ 17 mls/hr Q12HR IV 08/10/24 22:00 08/11/24 10:42 Acetaminophen (Tylenol Suppository) 650 mg Q6HP PRN NC PAIN SCALE 1-3 OR TEMP>100.4 08/10/24 23:30 08/11/24 01:13 Purified Water 250 ml Q6HR GT 08/11/24 12:00 08/11/24 12:15 Dextrose 1,000 ml @ 100 mls/hr Q10H IV 08/11/24 11:30 08/11/24 12:11 Albumin Human 100 ml @ 100 mls/hr Q8H IV 08/11/24 11:45 08/12/24 04:44 08/11/24 12:13 Review of Systems Can not be obtained H&P Exam Vital Signs/I&O Vital Sign Date Time Temp Pulse Resp B/P (MAP) Pulse Ox O2 Delivery O2 Flow Rate FiO2 08/11/24 13:15 97.3 100 22 96/58 (71) 100 97.3 08/11/24 12:20 30 08/11/24 07:18 Mechanical Ventilator+ Physical Exam Patient intubated on ventilator Lungs clear to auscultation bilaterally Cardiac exam regular rate and rhythm GI soft nontender Welch catheter Extremity no clubbing cyanosis or edema Neuro patient unresponsive Labs/Diagnostic Data Labs/Diagnostic Data Laboratory Tests Test 08/11/24 13:02 08/11/24 11:40 08/11/24 03:10 08/10/24 20:30 Range/Units Urine Color Yellow Yellow Urine Clarity Turbid H Clear Urine pH 5.5 5.0-9.0 Urine Specific [place] 1.018 1.001-1.035 Urine Protein 1+ H Negative Urine Ketones Negative Negative Urine Blood 3+ H Negative /uL Urine Nitrite Negative Negative Urine Bilirubin Negative Negative Urine Urobilinogen 4 H Negative mg/dL Urine Leukocyte Esterase 1+ Negative /uL Urine RBC 13 0 - 3 /hpf Urine WBC 14 0 - 3 /hpf Urine Squamous Epithelial Cells Few <5 /hpf Urine Bacteria Few H None Seen /hpf Urine Hyaline Casts Few 0 - 2 /lpf Urine Granular Casts Few 0 /lpf Urine Mucus Few None Seen Urine Glucose Normal Normal mg/dL Blood Gas Specimen Type Arterial Blood Gas Sample Site Right radial Blood Gas Patient Temperature 37.0 Arterial Blood Date Drawn [id number] Arterial Blood pH 7.420 7.350-7.450 Arterial Blood Partial Pressure CO2 39.5 35.0-48.0 mmHg Arterial Blood Partial Pressure O2 129.7 H 83.0-108.0 mmHg Arterial Blood HCO3 25.0 21.0-28.0 mmol/L Arterial Blood Oxygen Saturation 98.5 H 94.0-98.0 % Arterial Blood Base Excess 0.7 -2.0-3.0 mmol/L Arterial Blood Oxyhemoglobin 97.2 94.0-98.0 % Arterial Blood Carboxyhemoglobin 0.6 0.5-1.5 % Arterial Blood Methemoglobin 0.7 0.0-1.5 % Kirby Test Modified Blood Gas Total Hemoglobin 15.70 13.5-17.5 g/dL Blood Gas Set Respiration Rate 14.0 Blood Gas Modality Vent - ac Blood Gas Spontaneous Rate 20 FiO2 % 30.0 Blood Gas Tidal Volume 500.0 Blood Gas PEEP or CPAP 5.0 White Blood Count 16.1 #H 4.4-10.8 10^3/uL Red Blood Count 5.19 4.5-5.90 10^6/uL Hemoglobin 15.5 13.5-17.5 g/dL Hematocrit 47.3 # 41.0-53.0 % Mean Corpuscular Volume 91.0 80.0-100.0 fL Mean Corpuscular Hemoglobin 29.8 28.0-32.0 pg Mean Corpuscular Hemoglobin Concent 32.7 32.0-36.0 g/dL Red Cell Distribution Width 13.9 11.8-14.3 % Platelet Count 51 L 140-450 10^3/uL Mean Platelet Volume 9.5 6.9-10.8 fL Neutrophils (%) (Auto) 85.2 H 37.0-80.0 % Lymphocytes (%) (Auto) 8.8 L 10.0-50.0 % Monocytes (%) (Auto) 5.4 0.0-12.0 % Eosinophils (%) (Auto) 0.2 0.0-7.0 % Basophils (%) (Auto) 0.4 0.0-2.0 % Neutrophils # (Auto) 13.7 H 1.6-8.6 10 ^3/uL Lymphocytes # (Auto) 1.4 0.4-5.4 10 ^3/uL Monocytes # (Auto) 0.9 0-1.3 10 ^3/uL Eosinophils # (Auto) 0 0-0.8 10 ^3/uL Basophils # (Auto) 0.1 0-0.2 10 ^3/uL Nucleated Red Blood Cells 0.2 % Prothrombin Time 15.1 H 9.3-11.8 sec Prothrombin Time INR 1.47 H 0.9-1.15 Activated Partial Thromboplast Time 25.6 24.5-34.5 SEC Sodium Level 165 *H 168 *H 136-145 mmol/L Potassium Level 4.9 4.4 3.5-5.1 mmol/L Chloride Level 126 H 127 H 98-107 mmol/L Carbon Dioxide Level 27 27 20-31 mmol/L Anion Gap 12 14 5-15 Blood Urea Nitrogen 105 #*H 85 *H 9-23 mg/dL Creatinine 2.53 H 2.00 H 0.700-1.30 mg/dL Glomerular Filtration Rate Calc 26 34 >90 mL/min BUN/Creatinine Ratio 41.5 H 42.5 H 10.0-20.0 Serum Glucose 173 H 136 H 74-106 mg/dL Calcium Level 9.2 9.1 8.7-10.4 mg/dL Magnesium Level 3.3 H 1.6-2.6 mg/dL Total Bilirubin 2.7 H 0.2-1.0 mg/dL Aspartate Amino Transferase (AST) 134 H 13-40 U/L Alanine Aminotransferase (ALT) 113 H 7-40 U/L Alkaline Phosphatase 109 46-116 U/L Ammonia 32 11-32 umol/L Creatine Kinase 2525 H 46-171 U/L Total Protein 6.2 5.7-8.2 g/dL Albumin 3.4 3.2-4.8 g/dL Vitamin D 25-Hydroxy 68.2 30.0-100 ng/mL Thyroid Stimulating Hormone (TSH) 4.48 0.55-4.78 uIU/mL Parathyroid Hormone (Intact) 169.0 H 18.4-80.1 pg/mL Random Vancomycin Level 11.8 H 5-10 ug/mL Hepatitis B Surface Antigen Negative Negative Hepatitis C Antibody Negative Negative Troponin I High Sensitivity 42 </=54 ng/L Test 08/10/24 16:21 08/10/24 15:07 08/10/24 14:08 08/10/24 13:42 Range/Units Troponin I High Sensitivity 33 34 </=54 ng/L Blood Gas Specimen Type Arterial Blood Gas Sample Site Right radial Blood Gas Patient Temperature 37.0 Arterial Blood Date Drawn [id number] Arterial Blood pH 7.431 7.350-7.450 Arterial Blood Partial Pressure CO2 43.2 35.0-48.0 mmHg Arterial Blood Partial Pressure O2 509.1 *H 83.0-108.0 mmHg Arterial Blood HCO3 28.1 H 21.0-28.0 mmol/L Arterial Blood Oxygen Saturation 99.7 H 94.0-98.0 % Arterial Blood Base Excess 3.3 H -2.0-3.0 mmol/L Arterial Blood Oxyhemoglobin 98.9 H 94.0-98.0 % Arterial Blood Carboxyhemoglobin 0.1 L 0.5-1.5 % Arterial Blood Methemoglobin 0.7 0.0-1.5 % Kirby Test Modified Blood Gas Total Hemoglobin 15.80 13.5-17.5 g/dL Blood Gas Set Respiration Rate 14.0 Blood Gas Modality Vent - ac FiO2 % 100.0 Blood Gas Tidal Volume 500.0 Blood Gas PEEP or CPAP 5.0 Blood Gas Critical Value Read Back Yes Blood Gas Notified Whom Dr. su staples Blood Gas Notified Time [id number] Blood Gas Notified By Manager Of Planning don garrido White Blood Count 11.3 H 4.4-10.8 10^3/uL Red Blood Count 5.88 4.5-5.90 10^6/uL Hemoglobin 17.6 H 13.5-17.5 g/dL Hematocrit 54.0 H 41.0-53.0 % Mean Corpuscular Volume 91.7 80.0-100.0 fL Mean Corpuscular Hemoglobin 30.0 28.0-32.0 pg Mean Corpuscular Hemoglobin Concent 32.7 32.0-36.0 g/dL Red Cell Distribution Width 13.5 11.8-14.3 % Platelet Count 62 L 140-450 10^3/uL Mean Platelet Volume 9.4 6.9-10.8 fL Neutrophils (%) (Auto) 90.6 H 37.0-80.0 % Lymphocytes (%) (Auto) 4.0 L 10.0-50.0 % Monocytes (%) (Auto) 5.2 0.0-12.0 % Eosinophils (%) (Auto) 0.1 0.0-7.0 % Basophils (%) (Auto) 0.1 0.0-2.0 % Neutrophils # (Auto) 10.3 H 1.6-8.6 10 ^3/uL Lymphocytes # (Auto) 0.4 0.4-5.4 10 ^3/uL Monocytes # (Auto) 0.6 0-1.3 10 ^3/uL Eosinophils # (Auto) 0 0-0.8 10 ^3/uL Basophils # (Auto) 0 0-0.2 10 ^3/uL Nucleated Red Blood Cells 0.2 % Platelet Estimate Decreased Sodium Level 170 *H 136-145 mmol/L Potassium Level 5.0 3.5-5.1 mmol/L Chloride Level 122 H 98-107 mmol/L Carbon Dioxide Level 30 20-31 mmol/L Anion Gap 18 H 5-15 Blood Urea Nitrogen 80 *H 9-23 mg/dL Creatinine 1.73 H 0.700-1.30 mg/dL Glomerular Filtration Rate Calc 40 >90 mL/min BUN/Creatinine Ratio 46.2 H 10.0-20.0 Serum Glucose 127 H 74-106 mg/dL Lactic Acid Level 0.7 0.4-2.0 mmol/L Calcium Level 10.1 8.7-10.4 mg/dL Total Bilirubin 2.0 H 0.2-1.0 mg/dL Aspartate Amino Transferase (AST) 149 H 13-40 U/L Alanine Aminotransferase (ALT) 141 H 7-40 U/L Alkaline Phosphatase 124 H 46-116 U/L Ammonia 19 11-32 umol/L Creatine Kinase 2313 H 46-171 U/L Total Protein 7.5 5.7-8.2 g/dL Albumin 4.0 3.2-4.8 g/dL Urine Color Dark-yellow Yellow Urine Clarity Turbid H Clear Urine pH 5.0 5.0-9.0 Urine Specific [place] 1.021 1.001-1.035 Urine Protein Negative Negative Urine Ketones Negative Negative Urine Blood Negative Negative /uL Urine Nitrite Negative Negative Urine Bilirubin Negative Negative Urine Urobilinogen 4 H Negative mg/dL Urine Leukocyte Esterase Trace Negative /uL Urine RBC 16 0 - 3 /hpf Urine WBC 10 0 - 3 /hpf Urine Squamous Epithelial Cells Few <5 /hpf Urine Bacteria Few H None Seen /hpf Urine Hyaline Casts Few 0 - 2 /lpf Urine Mucus Few None Seen Urine Glucose Normal Normal mg/dL Urine Opiates Screen Neg NEGATIVE Urine Fentanyl Screen Neg NEGATIVE Urine Barbiturates Screen Neg NEGATIVE Urine Phencyclidine Screen Neg NEGATIVE Urine Amphetamines Screen Neg NEGATIVE Urine Benzodiazepines Screen Neg NEGATIVE Urine Cocaine Screen Neg NEGATIVE Urine Cannabinoids Screen Neg NEGATIVE Assessment Acute kidney injury secondary hemodynamic mediated Acute respiratory failure patient intubated on ventilator Hyponatremia due to dehydration Rhabdomyolysis Jaundice Transaminitis Hypoalbuminemia Recommendations Closely monitor fluid and electrolytes Avoid nephrotoxic medications Welch catheter Strict I&Os IVF D5W 100 cc/hour IV pressor for blood pressure support Rule out liver cirrhosis Albumin 25% IV piggyback Check urine electrolytes Check kidney ultrasound We will continue to follow Patient seen and examined by myself. I discussed my plan of care with the primary nurse at the bedside I would like to thank Dr. Elliott for the consult, will follow up Plan discussed with: Other (Nurse) KAMILA LEMA MD Aug 11, 2024 11:37
[2024-08-11 12:00] LABS: Base Excess 0.7 mmol/L (-2.0-3.0)
--- NOTE | 2024-08-11 12:05 | DVH ---
RENAL ULTRASOUND CLINICAL HISTORY: [place] TECHNIQUE: Multiple ultrasound images of the kidneys and bladder were obtained. COMPARISON: None FINDINGS: The right kidney measures 11.0 cm in length. The left kidney measures 10.5 cm. The kidneys demonstrat e appropriate echotexture without evidence of a discrete renal lesion, nephrolithiasis or hydronephro sis. There is a Welch catheter in the bladder which is decompressed limiting evaluation. IMPRESSION: 1. Unremarkable sonographic appearance of the kidneys. HS:Y
[2024-08-11] MEDS: D5W 5% 1,000 ML IV SCH (12:11)
[2024-08-11] MEDS: ALBUMIN 25% 100 ML IV SCH (12:13)
[2024-08-11] MEDS: FREE WATER GT SCH (12:15)
[2024-08-11 12:54] LABS: Hepatitis B Surface Antigen Negative (Negative); Hepatitis C Antibody Negative (Negative)
[2024-08-11 13:27] LABS: Urine Bacteria FEW /hpf (None Seen); Urine Blood 3+ /uL (Negative); Urine Clarity Turbid (Clear); Urine Color Yellow (Yellow); Urine Hyaline Cast FEW /lpf (0 - 2); Urine Mucus FEW (None Seen); Urine Protein, UAD 1+ (Negative); Urine Specific Gravity 1.018 (1.001-1.035); Urine Squamous Epithelial Cell FEW /hpf (<5); Urine Urobilinogen 4 mg/dL (Negative); Urine WBC 14 /hpf (0 - 3); Urine pH 5.5 (5.0-9.0)
[2024-08-11 13:33] LABS: Protein, Urine 67.3 mg/dL (1-14)
[2024-08-11 13:35] LABS: Creatinine, Urine 67.44 mg/dL (30.0-125.0)
[2024-08-11] MEDS ORDERED: DEXTROSE (50%) 50ML SYRG IV PRN (14:45)
[2024-08-11] MEDS: ACCU-CHEK COMFORT CURVE STRIP VI SCH (16:00)
[2024-08-11] MEDS: InsuLIN REG 1unit/0.01ml Soln (100units/ml) SC SCH (16:55)
[2024-08-11] MEDS: VANCOMYCIN 500mg/100mL 100 ML IV ONE (17:03)
--- NOTE | 2024-08-11 19:28 | DVHPN2 ---
Progress Note - Dictate Date Seen: Aug 11, 2024 Medical Necessity Reason Pt with a Central, PICC or Fol: Yes The following are medically ne: Powell Catheter Reason for powell catheter: Strict I&O Subjective Patient seen and examined at bedside. Sedated, intubated on mechanical ventilator. Overnight events reviewed. vital signs Vital Sign Date Time Temp Pulse Resp B/P (MAP) Pulse Ox O2 Delivery O2 Flow Rate FiO2 08/11/24 18:53 103/59 08/11/24 16:19 103 26 97 30 08/11/24 15:15 97.9 97.9 08/11/24 07:18 Mechanical Ventilator+ medications Current Medications Medications Dose Ordered Sig/Akiko Route Start Time Stop Time Status Last Admin Dose Admin Vancomycin HCl 200 ml @ 200 mls/hr Q12HR IV 08/10/24 22:00 UNV Midazolam HCl 50 ml @ 1 mls/hr Q24H IV 08/10/24 14:00 08/11/24 13:59 4 MLS/HR Vancomycin HCl 0 ml @ 0 mls/hr UD IV 08/10/24 16:15 Pantoprazole Sodium 40 mg DAILY IV 08/11/24 10:00 08/11/24 10:42 40 MG Fentanyl Citrate 250 ml @ 2.5 mls/hr Q24H IV 08/10/24 21:30 Acetaminophen 650 mg Q6HP PRN [place] 08/10/24 23:30 08/11/24 01:13 650 MG Purified Water 250 ml Q6HR GT 08/11/24 12:00 08/11/24 18:10 250 ML Dextrose 1,000 ml @ 100 mls/hr Q10H IV 08/11/24 11:30 08/11/24 12:11 100 MLS/HR Albumin Human 100 ml @ 100 mls/hr Q8H IV 08/11/24 11:45 08/12/24 04:44 08/11/24 12:13 100 MLS/HR Meropenem 50 ml @ 17 mls/hr Q12HR IV 08/11/24 22:00 Diagnostic Test (Pha) 1 strip IQ4HR 08/11/24 16:00 08/11/24 16:00 1 STRIP Insulin Human Regular IQ4HR SC 08/11/24 16:00 08/11/24 16:55 2 UNITS Dextrose 50 ml UD PRN IV 08/11/24 14:45 Norepinephrine Bitartrate 16 mg/ Sodium Chloride 250 ml @ 1.875 mls/ hr Q24H IV 08/11/24 18:30 objective Gen.: Patient lying in bed in medical ICU. Sedated, intubated on mechanical ventilator. Head: Normocephalic, atraumatic. Eyes: PERRLA. Ears: Normal external anatomy. Throat: Endotracheal tube and orogastric tube in place. Neck: Supple, trachea midline. Chest: Transmitted breath sounds bilaterally. Decreased air entry bilaterally. No wheezing. Bibasilar crackles. Cardiovascular: Positive S1, positive S2. Regular rate and rhythm. Abdomen: Positive bowel sounds in all 4 quadrants. Soft, nontender, nondistended. : Powell in place. Normal external genitalia. Rectal: Deferred. Skin: Warm, dry. Intact. Extremities: 2+ radial pulses bilaterally. No lower extremity edema. Neuro: Sedated. laboratory and microbiology Laboratory Tests 08/11/24 03:10 Test 08/11/24 03:10 Range/Units Serum Glucose 173 H 74-106 mg/dL Assessment/Plan Impression: Acute hypoxic respiratory failure On mechanical ventilator Leukocytosis Hypernatremia Parkinson's disease Acute metabolic encephalopathy Decubitus ulcers Sepsis Rhabdomyolysis Acute kidney injury Events: Remains on vent support On assist control with respiratory rate of 20, tidal volume 500, PEEP of 5, FiO2 at 30% Sedated on Versed On pressors for hemodynamic support. On Levophed 16 mcg/min Titrate to keep MAP above 65 mmHg/SBP above 90 mmHg. Taper pressors as tolerated ABG reviewed, compensated. CXR reviewed; demonstrates no acute opacities, pleural effusion or pneumothorax. Leukocytosis, WBC of 16.1 K. Continue antibiotics Follow up cultures Monitor renal function. Monitor electrolytes. Supplement as necessary. Check magnesium. Free water Monitor sodium. Labs and imaging reviewed. Rest of plan as noted below. Plan: s/p intubation on mechanical ventilator CT head: No acute intracranial hemorrhage or stroke. On assist control with respiratory rate of 20, tidal volume 500, PEEP of 5, FiO2 at 30% Titrate FIO2 to keep O2 saturation above 92%. VAP bundle Daily ABG and CXR while intubated. Sedate for ventilatory synchrony On pressors for hemodynamic support. Titrate to keep MAP above 65 mmHg/SBP above 90 mmHg. Continue antibiotics. F/u cultures. Monitor renal function due to Acute kidney injury. Monitor electrolytes. Supplement as necessary. Monitor sodium due to hypernatremia, sodium 168 on 08/10 IV fluid hydration Do not over correct sodium. Nutritional support. Accu-Cheks, ISS. GI prophylaxis - Protonix DVT prophylaxis. Condition: Critical Prognosis: Poor given multiple comorbidities. Rest of plan per hospitalist and other consultants. A total of 35 minutes of critical care time was spent reviewing the patient record, examining the patient, making a diagnostic and therapeutic plan, discussing this plan with the medical personnel, following up on diagnostic studies and following the patient for clinical stability excluding any and all procedures. At least 50% of this time was spent in direct, [id number] contact. Thank you Dr. Newman for allowing me to participate in this patient's care. Further recommendations will depend on patient's clinical course. Please do not hesitate to contact me if you have any questions or concerns. This medical document was created using an electronic medical record system with [employer] dictation system. Although this document has been carefully reviewed, there may still be some phonetic and typographical errors. These areas are purely typographical due to imperfections of the software programs, and do not reflect any compromise in the patient's medical care. Plan discussed with: Other (SRAVANI Godfrey) Critical Care Time(min): 35 REY REAGAN MD Aug 11, 2024 19:28
[2024-08-11] MEDS: NOREPINEPHRINE BITARTRATE 16 MG in SODIUM CHL 0.9% 234 ML IV SCH (20:49)
[2024-08-11] MEDS: MEROPENEM 500MG IVPB 50 ML IV SCH (22:13)
[2024-08-12] VITALS (35 sets, daily range): BP systolic 79–130; BP diastolic 41–67; PULSE 84–98; RESP 14–26; TEMP 98.6–99; O2SAT 93–100
--- NOTE | 2024-08-12 08:29 | DVH ---
EXAM: XY CHEST XRAY 1 VIEW Indication: ETT Technique: Single AP view of the chest WID: Comparison: XY CHEST PORTABLE on DOS: 08/10/24, XY CHEST PORTABLE on DOS: 08/10/24, XY CHEST PORTABLE on DOS: 08/10/24 FINDINGS: Lines and tubes: Right IJ central venous catheter with the tip projecting over the mid SVC. Endotrach eal tube with the tip projecting 4.4 cm above the anastasia. There is a gastric tube descending beneath the level of the diaphragm and tip not visualized in field of view. Chest: The heart size and pulmonary vasculature is within normal limits. No pleural effusion, pneumothorax, or consolidation. The osseous structures are grossly intact. IMPRESSION: No significant change compared to prior exam.
[2024-08-12] MEDS: VANCOMYCIN 1GM/250ML KIT 250 ML IV ONE (10:31)
--- NOTE | 2024-08-12 11:58 | DVHPN2 ---
Subjective Intubated and sedated FiO2 30% PEEP of 10 He is on Levophed drip He is on Versed drip Changes from previous H/P or p: Changes Objective Vitals Vital Signs Date Time Temp Pulse Resp B/P (MAP) Pulse Ox O2 Delivery O2 Flow Rate FiO2 08/12/24 10:49 91 22 103/52 (69) 99 30 08/12/24 08:32 Mechanical Ventilator+ 08/12/24 07:00 98.7 98.7 Intake/Output Intake and Output 08/12/24 07:00 Intake Total 2639.125 ml Output Total 2830 ml Balance -190.875 ml Intake Oral 500 ml IV Total 2139.125 ml Output Urine Total 2830 ml # Voids 2 # Bowel Movements 2 General Appearance: Other (Intubated and sedated) Lungs: Clear to auscultation Cardiovascular: Regular rate, Normal S1, Normal S2 Abdomen: Normal bowel sounds, Soft, No tenderness Extremities: No edema Medications Current Medications Medications Dose Ordered Sig/Akiko Route Start Time Stop Time Status Last Admin Dose Admin Vancomycin HCl 200 ml @ 200 mls/hr Q12HR IV 08/10/24 22:00 UNV Midazolam HCl 50 ml @ 1 mls/hr Q24H IV 08/10/24 14:00 08/12/24 03:13 4 MLS/HR Vancomycin HCl 0 ml @ 0 mls/hr UD IV 08/10/24 16:15 Pantoprazole Sodium 40 mg DAILY IV 08/11/24 10:00 08/12/24 10:28 40 MG Acetaminophen 650 mg Q6HP PRN ID 08/10/24 23:30 08/11/24 01:13 650 MG Purified Water 250 ml Q6HR GT 08/11/24 12:00 08/12/24 05:44 250 ML Dextrose 1,000 ml @ 100 mls/hr Q10H IV 08/11/24 11:30 08/12/24 10:29 100 MLS/HR Meropenem 50 ml @ 17 mls/hr Q12HR IV 08/11/24 22:00 08/12/24 10:29 17 MLS/HR Diagnostic Test (Pha) 1 strip IQ4HR 08/11/24 16:00 08/12/24 07:43 1 STRIP Insulin Human Regular IQ4HR SC 08/11/24 16:00 08/12/24 04:59 2 UNITS Dextrose 50 ml UD PRN IV 08/11/24 14:45 Norepinephrine Bitartrate 16 mg/ Sodium Chloride 250 ml @ 1.875 mls/ hr Q24H IV 08/11/24 18:30 08/11/24 20:49 13.125 MLS/HR Laboratory Results Laboratory Tests 08/11/24 03:10 08/12/24 05:46 Urinalysis Test 08/11/24 13:02 Urine Color Yellow (Yellow) Urine Clarity Turbid (Clear) H Urine pH 5.5 (5.0-9.0) Urine Specific [place] 1.018 (1.001-1.035) Urine Protein 1+ (Negative) H Urine Ketones Negative (Negative) Urine Blood 3+ /uL (Negative) H Urine Nitrite Negative (Negative) Urine Bilirubin Negative (Negative) Urine Urobilinogen 4 mg/dL (Negative) H Urine Leukocyte Esterase 1+ /uL (Negative) Urine RBC 13 /hpf (0 - 3) Urine WBC 14 /hpf (0 - 3) Urine Squamous Epithelial Cells Few /hpf (<5) Urine Bacteria Few /hpf (None Seen) H Urine Hyaline Casts Few /lpf (0 - 2) Urine Granular Casts Few /lpf (0) Urine Mucus Few (None Seen) Urine Creatinine 67.44 mg/dL (30.0-125.0) Urine Protein/Creatinine Ratio 1.00 Urine Sodium 32 mmol/L (40-220) L Urine Glucose Normal mg/dL (Normal) Urine Total Protein 67.3 mg/dL (1-14) H Blood Gas Results Test 08/12/24 07:28 Arterial Blood pH 7.436 (7.350-7.450) FiO2 % 30.0 Microbiology Microbiology Date/Time Source Procedure Growth Status 08/10/24 14:08 Blood Blood Culture - Preliminary NO GROWTH AFTER 24 HOURS OF INCUBATION. Resulted 08/10/24 13:30 Sputum Gram Stain - Final Resulted 08/10/24 13:30 Sputum Respiratory Culture - Preliminary Resulted Assessment/Plan Assessment/Plan Acute hypoxic respiratory failure Metabolic encephalopathy Sepsis with septic shock Severe hypernatremia Severe dehydration DAYLIN due to vasomotor nephropathy Rhabdomyolysis Parkinson's disease Decubitus ulcer PLAN: Admit to ICU Levophed drip Sedation as needed Blood Cx Urine Cx IV antibiotics Mechanical ventilation Pulmonary consult Nephrology consult IV fluids Add Free Water per NG tube GI prophylaxis: Protonix 08/12/2024: Switch Versed to fentanyl for sedation Order labs to check his sodium today Continue free water Continue IV fluids Continue IV antibiotics Check the CK Norepinephrine drip as needed Mechanical ventilation Monitor closely Start nutrition Plan discussed with: Other My Orders Orders - JELENA GAINES MD Procedure Category Date Status Time Meropenem 500mg Ivpb PHA 08/11/24 In Process (Merrem 500mg/Ns) 22:00 Glucose Blood PHA 08/11/24 In Process (Accu-Chek Comfort 16:00 Insulin R (Human) PHA 08/11/24 In Process (Insulin R) 16:00 Dextrose 50% Syringe PHA 08/11/24 In Process 14:45 Consult For Nutrition NOURISH 08/12/24 Transmitted 07:32 Complete Blood Count LAB 08/12/24 Logged 11:34 Comprehensive LAB 08/12/24 Logged Metabolic Panel 11:34 Magnesium LAB 08/12/24 Logged 11:34 Rapid Influenza A&B LAB 08/12/24 Logged 11:36 Covid19 Antigen Tarah LAB 08/12/24 Logged Creatine Kinase LAB 08/12/24 Logged 11:51 Creatine Kinase LAB 08/13/24 Verified 04:00 Complete Blood Count LAB 08/13/24 Verified 04:00 Comprehensive LAB 08/13/24 Verified Metabolic Panel 04:00 Magnesium LAB 08/13/24 Verified 04:00 Chest Portable XY 08/13/24 Logged 06:00 Abg W/ Co-Ox RT 08/13/24 Logged 06:00 Date of Service: Aug 12, 2024 Billing Provider: JELENA GAINES MD Common Visit Codes: NOT BILLABLE JELENA GAINES MD Aug 12, 2024 11:58
[2024-08-12] MEDS ORDERED: NutriHep RTU 240 mL Unflavored GT SCH (12:00)
[2024-08-12 12:18] LABS: Basophils # (auto) 0 10 ^3/uL (0-0.2); Basophils % (auto) 0.1 % (0.0-2.0); Eosinophils # (auto) 0.1 10 ^3/uL (0-0.8); Lymphocytes # (auto) 0.9 10 ^3/uL (0.4-5.4); Monocytes # (auto) 0.5 10 ^3/uL (0-1.3); Neutrophils # (auto) 9.1 10 ^3/uL (1.6-8.6); White Blood Cell 10.6 10^3/uL (4.4-10.8)
[2024-08-12 12:20] LABS: Eosinophils % (auto) 0.5 % (0.0-7.0); Hematocrit 39.3 % (41.0-53.0); Lymphocytes % (auto) 8.5 % (10.0-50.0); Mean Corpuscular Hemoglobin 29.9 pg (28.0-32.0); Mean Corpuscular Volume 90.8 fL (80.0-100.0); Monocytes % (auto) 4.9 % (0.0-12.0); Platelet Count (auto) 37 10^3/uL (140-450); Red Blood Cells 4.33 10^6/uL (4.5-5.90); Red Cell Distribution Width 13.5 % (11.8-14.3)
[2024-08-12 12:42] LABS: Albumin 3.6 g/dL (3.2-4.8); Alkaline Phosphatase 95 U/L (46-116); Anion Gap 12 (5-15); Calcium 9.2 mg/dL (8.7-10.4); Carbon Dioxide 25 mmol/L (20-31); Potassium 4.6 mmol/L (3.5-5.1)
[2024-08-12 12:43] LABS: Total Protein 6.1 g/dL (5.7-8.2)
[2024-08-12 12:49] LABS: Alanine Aminotransferase 96 U/L (7-40); Aspartate Aminotransferase 148 U/L (13-40); Bilirubin, Total 2.5 mg/dL (0.2-1.0); Chloride 127 mmol/L (98-107); Glucose 149 mg/dL (74-106); Magnesium 3.3 mg/dL (1.6-2.6)
[2024-08-12 12:51] LABS: Blood Urea Nitrogen 86 mg/dL (9-23); Sodium 164 mmol/L (136-145)
[2024-08-12 13:04] LABS: Creatine Kinase IFCC 2844 U/L (46-171)
[2024-08-12] MEDS: fentaNYL Drip 2500mCg/250mlNS 250 ML IV SCH (14:24)
[2024-08-12 16:12] LABS: COVID19 ANTIGEN SOFIA FIA NEGATIVE (NEGATIVE)
--- NOTE | 2024-08-12 18:35 | DVHPN2 ---
Progress Note - Dictate Date Seen: Aug 12, 2024 Medical Necessity Reason Pt with a Central, PICC or Fol: Yes The following are medically ne: Powell Catheter Reason for powell catheter: Strict I&O Subjective Patient seen and examined at bedside. Sedated, intubated on mechanical ventilator. Overnight events reviewed. vital signs Vital Sign Date Time Temp Pulse Resp B/P (MAP) Pulse Ox O2 Delivery O2 Flow Rate FiO2 08/12/24 17:15 88 23 112/60 (77) 98 08/12/24 16:38 30 08/12/24 11:30 97.5 97.5 08/12/24 08:32 Mechanical Ventilator+ Total Intake and Output 08/11/24 08/11/24 08/12/24 15:00 23:00 07:00 Intake Total 338 ml 825.500 ml 1587.125 ml Output Total 1220 ml 510 ml 1100 ml Balance -882 ml 315.500 ml 487.125 ml medications Current Medications Medications Dose Ordered Sig/Akiko Route Start Time Stop Time Status Last Admin Dose Admin Vancomycin HCl 200 ml @ 200 mls/hr Q12HR IV 08/10/24 22:00 UNV Vancomycin HCl 0 ml @ 0 mls/hr UD IV 08/10/24 16:15 Pantoprazole Sodium 40 mg DAILY IV 08/11/24 10:00 08/12/24 10:28 40 MG Acetaminophen 650 mg Q6HP PRN NV 08/10/24 23:30 08/11/24 01:13 650 MG Purified Water 250 ml Q6HR GT 08/11/24 12:00 08/12/24 13:02 250 ML Dextrose 1,000 ml @ 100 mls/hr Q10H IV 08/11/24 11:30 08/12/24 10:29 100 MLS/HR Meropenem 50 ml @ 17 mls/hr Q12HR IV 08/11/24 22:00 08/12/24 10:29 17 MLS/HR Diagnostic Test (Pha) 1 strip IQ4HR 08/11/24 16:00 08/12/24 16:12 1 STRIP Insulin Human Regular IQ4HR SC 08/11/24 16:00 08/12/24 11:32 2 UNITS Dextrose 50 ml UD PRN IV 08/11/24 14:45 Norepinephrine Bitartrate 16 mg/ Sodium Chloride 250 ml @ 1.875 mls/ hr Q24H IV 08/11/24 18:30 08/11/24 20:49 13.125 MLS/HR Enteral Nutritional Formula 240 ml 50ML/HR GT 08/12/24 12:00 Fentanyl Citrate 250 ml @ 2.5 mls/hr Q24H IV 08/12/24 12:00 08/12/24 14:24 2.5 MLS/HR Enteral Nutritional Formula 1,000 ml UD GT 08/12/24 16:45 objective Gen.: Patient lying in bed in medical ICU. Sedated, intubated on mechanical ventilator. Head: Normocephalic, atraumatic. Eyes: PERRLA. Ears: Normal external anatomy. Throat: Endotracheal tube and orogastric tube in place. Neck: Supple, trachea midline. Chest: Transmitted breath sounds bilaterally. Decreased air entry bilaterally. No wheezing. Bibasilar crackles. Cardiovascular: Positive S1, positive S2. Regular rate and rhythm. Abdomen: Positive bowel sounds in all 4 quadrants. Soft, nontender, nondistended. : Powell in place. Normal external genitalia. Rectal: Deferred. Skin: Warm, dry. Intact. Extremities: 2+ radial pulses bilaterally. No lower extremity edema. Neuro: Sedated. laboratory and microbiology Laboratory Tests 08/12/24 05:46 Test 08/12/24 05:46 Range/Units Serum Glucose 149 H 74-106 mg/dL Assessment/Plan Impression: Acute hypoxic respiratory failure On mechanical ventilator Leukocytosis Hypernatremia Parkinson's disease Acute metabolic encephalopathy Decubitus ulcers Sepsis Rhabdomyolysis Acute kidney injury Events: Remains on vent support On assist control with respiratory rate of 14, tidal volume 500, PEEP of 5, FiO2 at 30% Sedated on Versed, Fentanyl. Increased ET tube secretions Plan for therapeutic bronchoscopy with BAL for clearing of secretions. On pressors for hemodynamic support. On Levophed 8 mcg/min Titrate to keep MAP above 65 mmHg/SBP above 90 mmHg. Improved pressor requirements Taper pressors as tolerated ABG reviewed, compensated. CXR reviewed; demonstrates no acute opacities, pleural effusion or pneumothorax. Devices in place. WBC within normal limits. Continue antibiotics Blood cultures show no growth after 48 hours. Accu-Cheks, ISS. D5W at 100 ml/hr + Free water for hypernatremia Monitor sodium. Monitor renal function. Monitor electrolytes. Supplement as necessary. Labs and imaging reviewed. Rest of plan as noted below. Plan: s/p intubation on mechanical ventilator CT head: No acute intracranial hemorrhage or stroke. On assist control with respiratory rate of 14, tidal volume 500, PEEP of 5, FiO2 at 30% Titrate FIO2 to keep O2 saturation above 92%. VAP bundle Daily ABG and CXR while intubated. Sedate for ventilatory synchrony On pressors for hemodynamic support. Titrate to keep MAP above 65 mmHg/SBP above 90 mmHg. Continue antibiotics. F/u cultures. Monitor renal function due to Acute kidney injury. Monitor electrolytes. Supplement as necessary. Monitor sodium due to hypernatremia, sodium 168 on 08/10 IV fluid hydration Do not over correct sodium. Nutritional support. Accu-Cheks, ISS. GI prophylaxis - Protonix DVT prophylaxis. Condition: Critical Prognosis: Poor given multiple comorbidities. Rest of plan per hospitalist and other consultants. A total of 35 minutes of critical care time was spent reviewing the patient record, examining the patient, making a diagnostic and therapeutic plan, discussing this plan with the medical personnel, following up on diagnostic studies and following the patient for clinical stability excluding any and all procedures. At least 50% of this time was spent in direct, [id number] contact. Thank you Dr. Newman for allowing me to participate in this patient's care. Further recommendations will depend on patient's clinical course. Please do not hesitate to contact me if you have any questions or concerns. This medical document was created using an electronic medical record system with [employer] dictation system. Although this document has been carefully reviewed, there may still be some phonetic and typographical errors. These areas are purely typographical due to imperfections of the software programs, and do not reflect any compromise in the patient's medical care. Dietary Evaluation Review Comments: 1. If on Vent Consider Nepro 30ml/hr x 24 hr,( 58g pro 1274 kcal). this will support pt's needs at 100% protein, 94 % kcal. 2. If EN not possible, and NPO > 7 days, consider TPN per pharmacy. 3. If off Vent, and pass speech eval, offer Renal Specific -50g protein 2g Na 3 K Low phos, 4. If off vent on hemo dialysis, pass speech eval, offer Renal Standard 2 gNa 3 K, Low Phos diet. Expected Outcomes/Goals: advance to diet able to eat independently. Plan discussed with: Other (SRAVANI Michele) Critical Care Time(min): 35 REY REAGAN MD Aug 12, 2024 18:35
--- NOTE | 2024-08-12 19:19 | DVHNC2 ---
Procedure - Bronchoscopy procedure note: Indications: Possible mucous plugging, increased ET tube secretions. Medicines: See SCRATCHER notes. Complications: None Procedure: Patient medications and allergies reviewed. The risks and benefits of the procedure and the sedation options and risk were discussed with the patient's healthcare proxy. All questions were answered and informed consent was obtained. Patient identification and proposed procedure were verified prior to the procedure by the physician, and a nurse, and the respiratory therapist in ICU room. The heart rate, respiratory rate, oxygen saturations, blood pressure, adequacy of pulmonary ventilation, and response to care were monitored throughout the procedure. The physical status of the patient was reassessed after the procedure. After obtaining informed consent, the bronchoscope was introduced through the endotracheal tube and advanced into the trachea bronchial tree of both lungs. The procedure was accomplished without difficulty. The patient tolerated the procedure well. Findings: The trachea is in normal caliber. The anastasia is sharp. The tracheobronchial tree of the right lung was examined to at least the first subsegmental level. The bronchial mucosa and anatomy in the right lung are normal. There are no endobronchial lesions. There was copious brownish secretions from right main stem bronchus onward throughout R1-R10. Right middle lobe (RML) Bronchoalveolar lavage (BAL) obtained. RML BAL sent for gram stain and culture. The left upper lobe, lingula, and left lower lobe were examined to at least the first subsegmental level. Bronchial mucosa and anatomy in the left upper lobe and lingula are normal. There were no endobronchial lesions. There was copious brownish secretions from left main stem bronchus onward throughout L6-L10. Mucous plugging removed from L6-L10. There was no active bleeding at the completion of the procedure. Estimated blood loss: Less than 5 mL. Impression: Right upper/middle/lower and left lower lobe atelectasis due to mucous plugging Mucous plugging from L6-L10 and R1-R10 RML BAL performed Recommendation: Follow-up RML BAL results. Procedure codes: 24363, bronchoscopy, rigid and flexible, including fluoroscopic guidance, one performed; with bronchial endobronchial broncho-alveolar lavage, single or multiple sites REY REAGAN MD Aug 12, 2024 19:19
--- NOTE | 2024-08-12 20:06 | DVHPN2 ---
Progress Note - Dictate Date Seen: Aug 12, 2024 Medical Necessity Reason Pt with a Central, PICC or Fol: Yes The following are medically ne: Powell Catheter Reason for powell catheter: Strict I&O Subjective remains in the ER, patient's daughter at bedside. vital signs Vital Sign Date Time Temp Pulse Resp B/P (MAP) Pulse Ox O2 Delivery O2 Flow Rate FiO2 08/12/24 19:00 97.5 87 18 110/55 (73) 97 97.5 08/12/24 16:38 30 08/12/24 08:32 Mechanical Ventilator+ Total Intake and Output 08/11/24 08/11/24 08/12/24 15:00 23:00 07:00 Intake Total 338 ml 825.500 ml 1587.125 ml Output Total 1220 ml 510 ml 1100 ml Balance -882 ml 315.500 ml 487.125 ml medications Current Medications Medications Dose Ordered Sig/Akiko Route Start Time Stop Time Status Last Admin Dose Admin Vancomycin HCl 200 ml @ 200 mls/hr Q12HR IV 08/10/24 22:00 UNV Vancomycin HCl 0 ml @ 0 mls/hr UD IV 08/10/24 16:15 Pantoprazole Sodium 40 mg DAILY IV 08/11/24 10:00 08/12/24 10:28 40 MG Acetaminophen 650 mg Q6HP PRN MD 08/10/24 23:30 08/11/24 01:13 650 MG Purified Water 250 ml Q6HR GT 08/11/24 12:00 08/12/24 13:02 250 ML Dextrose 1,000 ml @ 100 mls/hr Q10H IV 08/11/24 11:30 08/12/24 10:29 100 MLS/HR Meropenem 50 ml @ 17 mls/hr Q12HR IV 08/11/24 22:00 08/12/24 10:29 17 MLS/HR Diagnostic Test (Pha) 1 strip IQ4HR 08/11/24 16:00 08/12/24 16:12 1 STRIP Insulin Human Regular IQ4HR SC 08/11/24 16:00 08/12/24 11:32 2 UNITS Dextrose 50 ml UD PRN IV 08/11/24 14:45 Norepinephrine Bitartrate 16 mg/ Sodium Chloride 250 ml @ 1.875 mls/ hr Q24H IV 08/11/24 18:30 08/12/24 19:10 5.625 MLS/HR Enteral Nutritional Formula 240 ml 50ML/HR GT 08/12/24 12:00 Fentanyl Citrate 250 ml @ 2.5 mls/hr Q24H IV 08/12/24 12:00 08/12/24 14:24 2.5 MLS/HR Enteral Nutritional Formula 1,000 ml UD GT 08/12/24 16:45 objective gen: Intubated and sedated lungs: cta cvs: no rub ext: trace edema laboratory and microbiology Laboratory Tests 08/12/24 05:46 Test 08/12/24 05:46 Range/Units Serum Glucose 149 H 74-106 mg/dL Assessment/Plan Acute kidney injury secondary hemodynamic mediated Acute respiratory failure patient intubated on ventilator Hyponatremia due to dehydration Rhabdomyolysis Jaundice Transaminitis Hypoalbuminemia Recommendations appropriate incremental improvement in hypernatremia at current dose of D5 azotemia improving as well Agree with current plan of care Discussed plan of care from nephrology perspective with patient's daughter at bedside Dietary Evaluation Review Comments: 1. If on Vent Consider Nepro 30ml/hr x 24 hr,( 58g pro 1274 kcal). this will support pt's needs at 100% protein, 94 % kcal. 2. If EN not possible, and NPO > 7 days, consider TPN per pharmacy. 3. If off Vent, and pass speech eval, offer Renal Specific -50g protein 2g Na 3 K Low phos, 4. If off vent on hemo dialysis, pass speech eval, offer Renal Standard 2 gNa 3 K, Low Phos diet. Expected Outcomes/Goals: advance to diet able to eat independently. Plan discussed with: Daughter MILO AVENDANO MD Aug 12, 2024 20:06
[2024-08-12 22:12] LABS: Rapid Influenza A Negative (Negative); Rapid Influenza B Negative (Negative)
[2024-08-12] MEDS: Nepro With Carb Steady 1 Liter Bottle GT SCH (22:34)
[2024-08-13] VITALS (109 sets, daily range): BP systolic 91–141; BP diastolic 49–78; PULSE 77–94; RESP 7–29; TEMP 97.5–99; O2SAT 95–100
[2024-08-13 03:37] LABS: Basophils # (auto) 0 10 ^3/uL (0-0.2); Basophils % (auto) 0.1 % (0.0-2.0); Eosinophils # (auto) 0.1 10 ^3/uL (0-0.8); Eosinophils % (auto) 1.1 % (0.0-7.0); Lymphocytes # (auto) 0.8 10 ^3/uL (0.4-5.4); Neutrophils # (auto) 10.3 10 ^3/uL (1.6-8.6); Nucleated Red Blood Cells % 0.1 %; White Blood Cell 11.7 10^3/uL (4.4-10.8)
[2024-08-13 03:39] LABS: Hematocrit 38.8 % (41.0-53.0); Hemoglobin 12.7 g/dL (13.5-17.5); Lymphocytes % (auto) 6.8 % (10.0-50.0); Mean Corpuscular Hemoglobin 29.7 pg (28.0-32.0); Mean Corpuscular Hgb Conc. 32.7 g/dL (32.0-36.0); Mean Corpuscular Volume 90.9 fL (80.0-100.0); Monocytes # (auto) 0.4 10 ^3/uL (0-1.3); Monocytes % (auto) 3.7 % (0.0-12.0); Neutrophils % (auto) 88.3 % (37.0-80.0); Platelet Count (auto) 47 10^3/uL (140-450); Red Blood Cells 4.27 10^6/uL (4.5-5.90); Red Cell Distribution Width 13.6 % (11.8-14.3)
[2024-08-13 04:07] LABS: Albumin 3.4 g/dL (3.2-4.8); Alkaline Phosphatase 110 U/L (46-116); Anion Gap 9 (5-15); BUN/Creatinine Ratio 41.8 (10.0-20.0); Carbon Dioxide 28 mmol/L (20-31); Potassium 4.6 mmol/L (3.5-5.1)
[2024-08-13 04:08] LABS: Aspartate Aminotransferase 186 U/L (13-40); Bilirubin, Total 2.3 mg/dL (0.2-1.0); Blood Urea Nitrogen 69 mg/dL (9-23); Chloride 124 mmol/L (98-107); Glucose 163 mg/dL (74-106); Magnesium 3.1 mg/dL (1.6-2.6); Total Protein 5.9 g/dL (5.7-8.2)
[2024-08-13 04:09] LABS: Sodium 161 mmol/L (136-145)
[2024-08-13 04:51] LABS: Creatine Kinase IFCC 4268 U/L (46-171)
[2024-08-13 04:52] LABS: Alanine Aminotransferase 110 U/L (7-40)
--- NOTE | 2024-08-13 05:17 | DVH ---
CHEST RADIOGRAPH Indication: vent Technique: Single frontal view of the chest was obtained COMPARISON: XY CHEST XRAY 1 VIEW on DOS: 08/12/24, XY CHEST PORTABLE on DOS: 08/10/24, XY CHEST PHILIPP BLE on DOS: 08/10/24 FINDINGS: Lines and Tubes: Endotracheal tube, enteric catheter and right central venous catheter in satisfactor y position. Lungs: Mild congestion. Pleura: No effusion. No pneumothorax. Cardiomediastinal contours: Unremarkable Bones: Unremarkable IMPRESSION: Lines and tubes in satisfactory position. No significant interval change.
[2024-08-13 07:36] LABS: Base Excess 1.8 mmol/L (-2.0-3.0)
--- NOTE | 2024-08-13 09:54 | DVHPN2 ---
Subjective Intubated and sedated FiO2 30% PEEP of 5 He is on Levophed drip Sedated with fentanyl Changes from previous H/P or p: Changes Objective Vitals Vital Signs Date Time Temp Pulse Resp B/P (MAP) Pulse Ox O2 Delivery O2 Flow Rate FiO2 08/13/24 08:00 93 08/13/24 08:00 30 08/13/24 08:00 17 99 Mechanical Ventilator+ 08/13/24 07:51 107/62 (77) 08/13/24 06:45 98.8 98.8 08/13/24 05:30 0 Intake/Output Intake and Output 08/13/24 07:00 Intake Total 3512.750 ml Output Total 2400 ml Balance 1112.750 ml Intake Oral 60 ml IV Total 3102.750 ml Tube Feeding 50 ml Other 300 ml Output Urine Total 2400 ml Stool Total 0 ml General Appearance: Other (Intubated and sedated) Lungs: Clear to auscultation Cardiovascular: Regular rate, Normal S1, Normal S2 Abdomen: Normal bowel sounds, Soft, No tenderness Extremities: No edema Medications Current Medications Medications Dose Ordered Sig/Akiko Route Start Time Stop Time Status Last Admin Dose Admin Vancomycin HCl 200 ml @ 200 mls/hr Q12HR IV 08/10/24 22:00 UNV Vancomycin HCl 0 ml @ 0 mls/hr UD IV 08/10/24 16:15 Pantoprazole Sodium 40 mg DAILY IV 08/11/24 10:00 08/13/24 09:29 40 MG Acetaminophen 650 mg Q6HP PRN NC 08/10/24 23:30 08/11/24 01:13 650 MG Purified Water 250 ml Q6HR GT 08/11/24 12:00 08/13/24 05:01 250 ML Dextrose 1,000 ml @ 100 mls/hr Q10H IV 08/11/24 11:30 08/13/24 04:50 100 MLS/HR Meropenem 50 ml @ 17 mls/hr Q12HR IV 08/11/24 22:00 08/13/24 09:28 17 MLS/HR Diagnostic Test (Pha) 1 strip IQ4HR 08/11/24 16:00 08/13/24 08:00 1 STRIP Insulin Human Regular IQ4HR SC 08/11/24 16:00 08/13/24 08:30 3 UNITS Dextrose 50 ml UD PRN IV 08/11/24 14:45 Norepinephrine Bitartrate 16 mg/ Sodium Chloride 250 ml @ 1.875 mls/ hr Q24H IV 08/11/24 18:30 08/12/24 19:10 5.625 MLS/HR Enteral Nutritional Formula 240 ml 50ML/HR GT 08/12/24 12:00 Fentanyl Citrate 250 ml @ 2.5 mls/hr Q24H IV 08/12/24 12:00 08/13/24 06:25 12.5 MLS/HR Enteral Nutritional Formula 1,000 ml UD GT 08/12/24 16:45 08/12/24 22:34 1,000 ML Laboratory Results Laboratory Tests 08/13/24 03:05 Chemistry Test 08/13/24 03:05 Albumin 3.4 g/dL (3.2-4.8) Calcium Level 9.0 mg/dL (8.7-10.4) Magnesium Level 3.1 mg/dL (1.6-2.6) H Total Protein 5.9 g/dL (5.7-8.2) LFT Test 08/13/24 03:05 Alanine Aminotransferase (ALT) 110 U/L (7-40) H Alkaline Phosphatase 110 U/L (46-116) Aspartate Amino Transferase (AST) 186 U/L (13-40) H Total Bilirubin 2.3 mg/dL (0.2-1.0) H Urinalysis Test 08/11/24 13:02 Urine Color Yellow (Yellow) Urine Clarity Turbid (Clear) H Urine pH 5.5 (5.0-9.0) Urine Specific Hatch 1.018 (1.001-1.035) Urine Protein 1+ (Negative) H Urine Ketones Negative (Negative) Urine Blood 3+ /uL (Negative) H Urine Nitrite Negative (Negative) Urine Bilirubin Negative (Negative) Urine Urobilinogen 4 mg/dL (Negative) H Urine Leukocyte Esterase 1+ /uL (Negative) Urine RBC 13 /hpf (0 - 3) Urine WBC 14 /hpf (0 - 3) Urine Squamous Epithelial Cells Few /hpf (<5) Urine Bacteria Few /hpf (None Seen) H Urine Hyaline Casts Few /lpf (0 - 2) Urine Granular Casts Few /lpf (0) Urine Mucus Few (None Seen) Urine Creatinine 67.44 mg/dL (30.0-125.0) Urine Protein/Creatinine Ratio 1.00 Urine Sodium 32 mmol/L (40-220) L Urine Glucose Normal mg/dL (Normal) Urine Total Protein 67.3 mg/dL (1-14) H Blood Gas Results Test 08/13/24 07:25 Arterial Blood pH 7.385 (7.350-7.450) FiO2 % 30.0 Microbiology Microbiology Date/Time Source Procedure Growth Status 08/11/24 12:26 Thigh Gram Stain Pending Resulted 08/11/24 12:26 Thigh Wound Culture - Preliminary Resulted 08/10/24 14:08 Blood Blood Culture - Preliminary NO GROWTH AFTER 48 HOURS OF INCUBATION. Resulted 08/10/24 13:30 Sputum Gram Stain - Final Resulted 08/10/24 13:30 Sputum Respiratory Culture - Preliminary Resulted Assessment/Plan Assessment/Plan Acute hypoxic respiratory failure Metabolic encephalopathy Sepsis with septic shock Severe hypernatremia Severe dehydration DAYLIN due to vasomotor nephropathy Rhabdomyolysis Parkinson's disease Decubitus ulcer RLE DVT PLAN: Admit to ICU Levophed drip Sedation as needed Blood Cx Urine Cx IV antibiotics Mechanical ventilation Pulmonary consult Nephrology consult IV fluids Add Free Water per NG tube GI prophylaxis: Protonix 08/12/2024: Switch Versed to fentanyl for sedation Order labs to check his sodium today Continue free water Continue IV fluids Continue IV antibiotics Check the CK Norepinephrine drip as needed Mechanical ventilation Monitor closely Start nutrition 08/13/2024: Blood cultures are negative Continue IV fluids Continue free water Continue IV antibiotics Sedation as needed with fentanyl Levophed drip for blood pressure support Pulmonary consultation Status post bronchoscopy yesterday for atelectasis and mucus plugs suction Discussed with the daughter at bedside Continue nutrition tube feeding Do a venous Doppler to rule out DVT Echocardiogram pending today DVT RLE: Since he is coagulopathic and thrombocytopenic, anticoagulation is contraindicated until platelets are higher Switch Meropenem to Rocephin Continue Vanco for now, will DC if MRSA screening is negative Plan discussed with: Daughter My Orders Orders - JELENA GAINES MD Procedure Category Date Status Time Chest Portable XY 08/13/24 Resulted 06:00 Abg W/ Co-Ox RT 08/13/24 Logged 06:00 Nutritional PHA 08/12/24 In Process Supplement (Nutrihep 12:00 Fentanyl Drip PHA 08/12/24 In Process 2500mcg/250mlns 12:00 * Dietary Consult CONS 08/12/24 Transmitted 13:36 Cleanse Wound With JOHN 08/12/24 In Process Wound Clean 09:58 Nutritional PHA 08/12/24 In Process Supplements (Nepro 16:45 Bi Lat Upper Dvt US 08/13/24 Logged 09:33 Bilat Lower Dvt US 08/13/24 Logged 09:33 Date of Service: Aug 13, 2024 Billing Provider: JELENA GAINES MD Common Visit Codes: NOT BILLABLE JELENA GAINES MD Aug 13, 2024 09:54
[2024-08-13] MEDS ORDERED: ACETAMINOPHEN 500 MG TAB or CAP PO PRN (11:45)
--- NOTE | 2024-08-13 14:00 | MEDREC ---
[facility] Intervention Section I [facility] Intervention: Deescalate AB based on CS (PLEASE CONSIDER DE-ESCALATING MEROPENEM TO CEFTRIAXONE BASED ON FINAL RESPIRATORY CULTURE RESULTS WITH KLEBSIELLA PNEUMONIAE ) TRACY GOLDBERG Aug 13, 2024 14:00
[2024-08-13] MEDS: VANCOMYCIN 750MG VIAL 750 MG in D5W 5% 100 ML IV SCH (14:15)
--- NOTE | 2024-08-13 15:07 | DVH ---
Bilateral Upper Extremity Venous Duplex Clinical History: SWELLING Comparison: None Findings: Duplex Doppler evaluation of the venous systems of the right and left lower neck and upper extremitie s including color Doppler and spectral/pulsed waveform analysis was performed. RIGHT SIDE: The internal jugular vein is not clearly evaluated secondary to vascular access. The subclavian vein is patent on color Doppler evaluation without intraluminal thrombus and demonstra flower waveform variability. The visualized portion of the brachiocephalic vein is patent on color Doppler evaluation without intr aluminal thrombus and demonstrates waveform variability. The axillary vein demonstrates appropriate compressibility and waveform variability. The brachial veins demonstrate appropriate compressibility and patency on Doppler evaluation. The basilic vein demonstrates appropriate compressibility and patency on Doppler evaluation. The cephalic vein demonstrates appropriate compressibility and patency on Doppler evaluation. LEFT SIDE: The internal jugular vein demonstrates appropriate compressibility and waveform variability. The subclavian vein is patent on color Doppler evaluation without intraluminal thrombus and demonstra flower waveform variability. The visualized portion of the brachiocephalic vein is patent on color Doppler evaluation without intr aluminal thrombus and demonstrates waveform variability. The axillary vein demonstrates appropriate compressibility and waveform variability. The brachial veins demonstrate appropriate compressibility and patency on Doppler evaluation. The basilic vein demonstrates appropriate compressibility and patency on Doppler evaluation. The cephalic vein demonstrates appropriate compressibility and patency on Doppler evaluation. Impression: No venous thrombus identified in the right or left upper extremity vessels evaluated above. If clinical concern/symptoms persist or worsen, short-interval follow-up study is suggested.
--- NOTE | 2024-08-13 15:12 | DVH ---
Bilateral lower extremity venous duplex Clinical History: SWELLING Comparison: None Technique: Duplex Doppler evaluation of the deep venous systems of both lower extremities from the common femora l veins to the popliteal veins including color Doppler and spectral/pulsed waveform analysis was perf ormed. Findings: RIGHT SIDE: The common femoral vein demonstrates intraluminal thrombus and noncompressibility. There is compressibility/patency of the great saphenous vein at the proximal thigh. The femoral vein demonstrates intraluminal thrombus and noncompressibility. The deep femoral vein demonstrates intraluminal thrombus and noncompressibility. The popliteal vein demonstrates intraluminal thrombus and noncompressibility. There is non compressibility at the tibioperoneal trunk. LEFT SIDE: The common femoral vein demonstrates appropriate compressibility and waveform variability. There is compressibility/patency of the great saphenous vein at the proximal thigh. The femoral vein demonstrates appropriate compressibility and waveform variability. The deep femoral vein demonstrates appropriate compressibility and waveform variability. The popliteal vein demonstrates appropriate compressibility and waveform variability. There is normal compressibility at the tibioperoneal trunk. Impression: No left DVT. Positive DVT involving the right lower extremity common femoral vein, femoral vein, popliteal vein an d calf. Critical Findings: Extensive right-sided deep vein thrombosis (DVT) involving multiple veins, posing significant risk for pulmonary embolism.Findings discussed with Ellen LASSITER at 08/13/2024, who acknowled ged receipt and understanding of the findings.
[2024-08-13] MEDS: cefTRIAXone 1GM/50ML D5W 50 ML IV SCH (17:19)
--- NOTE | 2024-08-13 17:22 | DVHSR ---
APPROVED REPORT EXAM: Two-dimensional and M-mode echocardiogram with Doppler and color Doppler. Blood Pressure: 107/62 mmHg INDICATION Edema RISK FACTORS Height: 5'11", Weight: 196 DIMENSIONS LVDd4.1 (3.8-5.7cm)LA (2D)3.9 (1.9-4.0cm)Aortic Root3.5 (2.0-3.7cm) LVDs2.8 (2.5-4.0cm)LA (MM) (1.9-4.0cm)Aortic Cusp Exc2.1 (1.5-2.0cm) EF (%) 60.0 (55-70%)Rt. Atrium3.6 (1.9-4.0cm)Asc. Aorta cm IVSd1.3 (0.7-1.1cm)RV (D) (1.8-2.4cm) PWd1.3 (0.7-1.1cm) Mitral Valve MitralMitral Stenosis E wave0.64m/sMV Mean GR.mmHg A wave0.58m/sMV Peak GR.mmHg E/A ratio1.12D MVAcm2 DECEL [id number] 1/2 Timems Aortic Valve Aortic ValveAortic Stenosis V11.23m/Adriana Mean GR.4mmHg V21.59m/Adriana Peak GR.10mmHg LVOT Diameter2.2 (1.8-2.4cm)Doppler AVA2.94cm2 Pulmonic Valve V21.14m/s Tricuspid Valve TR Velocity2.70m/s [id number] Other Information Technically limited study due to body habitus and on vent. Conclusion Technically good study. Sinus rhythm. Concentric LVH. Valves appear to be structurally normal. EF of 60% with normal RV function. Moderate tricuspid regurgitation. Right ventricular systolic pressure of 30 mmHg. No pericardial effusion masses or vegetations.
--- NOTE | 2024-08-13 19:24 | DVHPN2 ---
Progress Note - Dictate Date Seen: Aug 13, 2024 Medical Necessity Reason Pt with a Central, PICC or Fol: Yes The following are medically ne: Powell Catheter Reason for powell catheter: Strict I&O Subjective Patient seen and examined at bedside. Sedated, intubated on mechanical ventilator. Overnight events reviewed. vital signs Vital Sign Date Time Temp Pulse Resp B/P (MAP) Pulse Ox O2 Delivery O2 Flow Rate FiO2 08/13/24 18:00 83 19 114/60 (78) 100 30 08/13/24 18:00 Mechanical Ventilator+ 08/13/24 16:30 97.7 97.7 08/13/24 05:30 0 Total Intake and Output 08/12/24 08/12/24 08/13/24 15:00 23:00 07:00 Intake Total 1187.375 ml 1228.375 ml 1097.000 ml Output Total 1200 ml 1200 ml Balance 1187.375 ml 28.375 ml -103.000 ml medications Current Medications Medications Dose Ordered Sig/Akiko Route Start Time Stop Time Status Last Admin Dose Admin Vancomycin HCl 200 ml @ 200 mls/hr Q12HR IV 08/10/24 22:00 UNV Vancomycin HCl 0 ml @ 0 mls/hr UD IV 08/10/24 16:15 Pantoprazole Sodium 40 mg DAILY IV 08/11/24 10:00 08/13/24 09:29 40 MG Acetaminophen 650 mg Q6HP PRN [place] 08/10/24 23:30 08/11/24 01:13 650 MG Purified Water 250 ml Q6HR GT 08/11/24 12:00 08/13/24 18:12 250 ML Dextrose 1,000 ml @ 100 mls/hr Q10H IV 08/11/24 11:30 08/13/24 14:34 100 MLS/HR Diagnostic Test (Pha) 1 strip IQ4HR 08/11/24 16:00 08/13/24 16:00 1 STRIP Insulin Human Regular IQ4HR SC 08/11/24 16:00 08/13/24 12:12 2 UNITS Dextrose 50 ml UD PRN IV 08/11/24 14:45 Norepinephrine Bitartrate 16 mg/ Sodium Chloride 250 ml @ 1.875 mls/ hr Q24H IV 08/11/24 18:30 08/12/24 19:10 5.625 MLS/HR Enteral Nutritional Formula 240 ml 50ML/HR GT 08/12/24 12:00 Fentanyl Citrate 250 ml @ 2.5 mls/hr Q24H IV 08/12/24 12:00 08/13/24 06:25 12.5 MLS/HR Enteral Nutritional Formula 1,000 ml UD GT 08/12/24 16:45 08/12/24 22:34 1,000 ML Vancomycin HCl 750 mg/Dextrose 100 ml @ 100 mls/hr DAILY@1100 IV 08/13/24 11:00 08/13/24 14:15 100 MLS/HR Acetaminophen 650 mg Q6HP PRN PO 08/13/24 11:45 Ceftriaxone Sodium 50 ml @ 100 mls/hr DAILY@09 IV 08/13/24 17:00 08/13/24 17:19 100 MLS/HR objective Gen.: Patient lying in bed in medical ICU. Sedated, intubated on mechanical ventilator. Head: Normocephalic, atraumatic. Eyes: PERRLA. Ears: Normal external anatomy. Throat: Endotracheal tube and orogastric tube in place. Neck: Supple, trachea midline. Chest: Transmitted breath sounds bilaterally. Decreased air entry bilaterally. No wheezing. Bibasilar crackles. Cardiovascular: Positive S1, positive S2. Regular rate and rhythm. Abdomen: Positive bowel sounds in all 4 quadrants. Soft, nontender, nondistended. : Powell in place. Normal external genitalia. Rectal: Deferred. Skin: Warm, dry. Intact. Extremities: 2+ radial pulses bilaterally. No lower extremity edema. Neuro: Sedated. laboratory and microbiology Laboratory Tests 08/13/24 03:05 Test 08/13/24 03:05 Range/Units Serum Glucose 163 H 74-106 mg/dL Assessment/Plan Impression: Acute hypoxic respiratory failure On mechanical ventilator Leukocytosis Hypernatremia Parkinson's disease Acute metabolic encephalopathy Decubitus ulcers Sepsis Rhabdomyolysis Acute kidney injury Events: Remains on vent support On assist control with respiratory rate of 14, tidal volume 500, PEEP of 5, FiO2 at 30% Sedated on Fentanyl. S/p therapeutic bronchoscopy w/ RML BAL on 08/12/24 - Mucous plugging from L6- L10 and R1-R10 See separate procedure note for details. On pressors for hemodynamic support. On Levophed 10 mcg/min Titrate to keep MAP above 65 mmHg/SBP above 90 mmHg. Taper pressors as tolerated ABG reviewed, compensated. CXR reviewed; demonstrates mild pulmonary congestion. No pleural effusion or pneumothorax. Devices in place. Continue antibiotics Blood cultures show no growth after 72 hours. D5W at 100 ml/hr + Free water for hypernatremia Monitor sodium. Monitor renal function. Monitor electrolytes. Supplement as necessary. Labs and imaging reviewed. Rest of plan as noted below. Plan: s/p intubation on mechanical ventilator CT head: No acute intracranial hemorrhage or stroke. On assist control with respiratory rate of 14, tidal volume 500, PEEP of 5, FiO2 at 30% Titrate FIO2 to keep O2 saturation above 92%. VAP bundle Daily ABG and CXR while intubated. Sedate for ventilatory synchrony On pressors for hemodynamic support. Titrate to keep MAP above 65 mmHg/SBP above 90 mmHg. Continue antibiotics. F/u cultures. Monitor renal function due to Acute kidney injury. Monitor electrolytes. Supplement as necessary. Monitor sodium due to hypernatremia, sodium 168 on 08/10 IV fluid hydration Do not over correct sodium. Nutritional support. Accu-Cheks, ISS. GI prophylaxis - Protonix DVT prophylaxis. Condition: Critical Prognosis: Poor given multiple comorbidities. Rest of plan per hospitalist and other consultants. A total of 35 minutes of critical care time was spent reviewing the patient record, examining the patient, making a diagnostic and therapeutic plan, discussing this plan with the medical personnel, following up on diagnostic studies and following the patient for clinical stability excluding any and all procedures. At least 50% of this time was spent in direct, [id number] contact. Thank you Dr. Newman for allowing me to participate in this patient's care. Further recommendations will depend on patient's clinical course. Please do not hesitate to contact me if you have any questions or concerns. This medical document was created using an electronic medical record system with [employer] dictation system. Although this document has been carefully reviewed, there may still be some phonetic and typographical errors. These areas are purely typographical due to imperfections of the software programs, and do not reflect any compromise in the patient's medical care. Dietary Evaluation Review Comments: 1. If on Vent Consider Nepro 30ml/hr x 24 hr,( 58g pro 1274 kcal). this will support pt's needs at 100% protein, 94 % kcal. 2. If EN not possible, and NPO > 7 days, consider TPN per pharmacy. 3. If off Vent, and pass speech eval, offer Renal Specific -50g protein 2g Na 3 K Low phos, 4. If off vent on hemo dialysis, pass speech eval, offer Renal Standard 2 gNa 3 K, Low Phos diet. Expected Outcomes/Goals: advance to diet able to eat independently. Plan discussed with: Other (SRAVANI Sanchez) Critical Care Time(min): 35 REY REAGAN MD Aug 13, 2024 19:24
--- NOTE | 2024-08-13 19:50 | DVHPN2 ---
Progress Note - Dictate Date Seen: Aug 13, 2024 Medical Necessity Reason Pt with a Central, PICC or Fol: Yes The following are medically ne: Powell Catheter Reason for powell catheter: Strict I&O Subjective Remains intubated vital signs Vital Sign Date Time Temp Pulse Resp B/P (MAP) Pulse Ox O2 Delivery O2 Flow Rate FiO2 08/13/24 19:00 97.9 81 14 105/54 (71) 100 208.2 08/13/24 18:00 30 08/13/24 18:00 Mechanical Ventilator+ 08/13/24 05:30 0 Total Intake and Output 08/12/24 08/12/24 08/13/24 15:00 23:00 07:00 Intake Total 1187.375 ml 1228.375 ml 1097.000 ml Output Total 1200 ml 1200 ml Balance 1187.375 ml 28.375 ml -103.000 ml medications Current Medications Medications Dose Ordered Sig/Akiko Route Start Time Stop Time Status Last Admin Dose Admin Vancomycin HCl 200 ml @ 200 mls/hr Q12HR IV 08/10/24 22:00 UNV Vancomycin HCl 0 ml @ 0 mls/hr UD IV 08/10/24 16:15 Pantoprazole Sodium 40 mg DAILY IV 08/11/24 10:00 08/13/24 09:29 40 MG Acetaminophen 650 mg Q6HP PRN [place] 08/10/24 23:30 08/11/24 01:13 650 MG Purified Water 250 ml Q6HR GT 08/11/24 12:00 08/13/24 18:12 250 ML Dextrose 1,000 ml @ 100 mls/hr Q10H IV 08/11/24 11:30 08/13/24 14:34 100 MLS/HR Diagnostic Test (Pha) 1 strip IQ4HR 08/11/24 16:00 08/13/24 16:00 1 STRIP Insulin Human Regular IQ4HR SC 08/11/24 16:00 08/13/24 12:12 2 UNITS Dextrose 50 ml UD PRN IV 08/11/24 14:45 Norepinephrine Bitartrate 16 mg/ Sodium Chloride 250 ml @ 1.875 mls/ hr Q24H IV 08/11/24 18:30 08/12/24 19:10 5.625 MLS/HR Enteral Nutritional Formula 240 ml 50ML/HR GT 08/12/24 12:00 Fentanyl Citrate 250 ml @ 2.5 mls/hr Q24H IV 08/12/24 12:00 08/13/24 06:25 12.5 MLS/HR Enteral Nutritional Formula 1,000 ml UD GT 08/12/24 16:45 08/12/24 22:34 1,000 ML Vancomycin HCl 750 mg/Dextrose 100 ml @ 100 mls/hr DAILY@1100 IV 08/13/24 11:00 08/13/24 14:15 100 MLS/HR Acetaminophen 650 mg Q6HP PRN PO 08/13/24 11:45 Ceftriaxone Sodium 50 ml @ 100 mls/hr DAILY@09 IV 08/13/24 17:00 08/13/24 17:19 100 MLS/HR objective gen: Intubated and sedated lungs: cta cvs: no rub ext: trace edema laboratory and microbiology Laboratory Tests 08/13/24 03:05 Test 08/13/24 03:05 Range/Units Serum Glucose 163 H 74-106 mg/dL Assessment/Plan Acute kidney injury secondary hemodynamic mediated Acute respiratory failure patient intubated on ventilator Hyponatremia due to dehydration Rhabdomyolysis Jaundice Transaminitis Hypoalbuminemia Recommendations DAYLIN and hypernatremia continued to improve Agree with current plan of care recommend to continue with D5 infusion at current rate Dietary Evaluation Review Comments: 1. If on Vent Consider Nepro 30ml/hr x 24 hr,( 58g pro 1274 kcal). this will support pt's needs at 100% protein, 94 % kcal. 2. If EN not possible, and NPO > 7 days, consider TPN per pharmacy. 3. If off Vent, and pass speech eval, offer Renal Specific -50g protein 2g Na 3 K Low phos, 4. If off vent on hemo dialysis, pass speech eval, offer Renal Standard 2 gNa 3 K, Low Phos diet. Expected Outcomes/Goals: advance to diet able to eat independently. Plan discussed with: Other MILO AVENDANO MD Aug 13, 2024 19:50
[2024-08-13] MEDS ORDERED: MEROPENEM 1GM IVPB 50 ML IV SCH (22:00)
[2024-08-14] VITALS (107 sets, daily range): BP systolic 86–156; BP diastolic 46–76; PULSE 79–89; RESP 8–28; TEMP 98.6–99.5; O2SAT 90–100
[2024-08-14 04:15] LABS: Basophils # (auto) 0 10 ^3/uL (0-0.2); Eosinophils # (auto) 0.1 10 ^3/uL (0-0.8); Hemoglobin 11.5 g/dL (13.5-17.5); Lymphocytes # (auto) 0.6 10 ^3/uL (0.4-5.4); Monocytes # (auto) 0.4 10 ^3/uL (0-1.3); Neutrophils # (auto) 6.8 10 ^3/uL (1.6-8.6)
[2024-08-14 04:18] LABS: Basophils % (auto) 0.1 % (0.0-2.0); Eosinophils % (auto) 1.8 % (0.0-7.0); Hematocrit 34.8 % (41.0-53.0); Lymphocytes % (auto) 7.3 % (10.0-50.0); Mean Corpuscular Hemoglobin 29.9 pg (28.0-32.0); Mean Corpuscular Hgb Conc. 33.1 g/dL (32.0-36.0); Mean Corpuscular Volume 90.3 fL (80.0-100.0); Monocytes % (auto) 4.6 % (0.0-12.0); Neutrophils % (auto) 86.2 % (37.0-80.0); Platelet Count (auto) 56 10^3/uL (140-450); Red Blood Cells 3.85 10^6/uL (4.5-5.90); Red Cell Distribution Width 13.4 % (11.8-14.3); White Blood Cell 7.9 10^3/uL (4.4-10.8)
[2024-08-14 04:19] LABS: Anion Gap 6 (5-15); BUN/Creatinine Ratio 35.9 (10.0-20.0); Calcium 8.7 mg/dL (8.7-10.4); Carbon Dioxide 29 mmol/L (20-31); Potassium 4.5 mmol/L (3.5-5.1)
[2024-08-14 04:26] LABS: INR 1.34 (0.9-1.15); Partial Thromboplastin Time 30.9 SEC (24.5-34.5); Prothrombin Time 13.9 sec (9.3-11.8)
[2024-08-14 04:28] LABS: Alanine Aminotransferase 130 U/L (7-40); Albumin 3.2 g/dL (3.2-4.8); Alkaline Phosphatase 141 U/L (46-116); Aspartate Aminotransferase 202 U/L (13-40); Bilirubin, Total 2.1 mg/dL (0.2-1.0); Blood Urea Nitrogen 51 mg/dL (9-23); Chloride 121 mmol/L (98-107); Glucose 155 mg/dL (74-106); Magnesium 2.9 mg/dL (1.6-2.6); Sodium 156 mmol/L (136-145); Total Protein 5.6 g/dL (5.7-8.2)
--- NOTE | 2024-08-14 05:33 | DVH ---
EXAM: XY CHEST PORTABLE Indication: vent Technique: Single frontal view of the chest was obtained Comparison: XY CHEST PORTABLE on DOS: 08/13/24, XY CHEST XRAY 1 VIEW on DOS: 08/12/24, XY CHEST PHILIPP BLE on DOS: 08/10/24, XY CHEST PORTABLE on DOS: 08/10/24, XY CHEST PORTABLE on DOS: 08/13/24 FINDINGS: Lines and Tubes: Endotracheal tube, enteric catheter and right central venous catheter in satisfactor y position. Lungs: Mild congestion. Pleura: No effusion. No pneumothorax. Cardiomediastinal contours: Unremarkable Bones: Unremarkable IMPRESSION: Lines and tubes in satisfactory position. No significant interval change.
[2024-08-14 05:55] LABS: Large Platelets FEW; Platelet Estimate Decrea
[2024-08-14 06:02] LABS: Base Excess 0.3 mmol/L (-2.0-3.0)
[2024-08-14] MEDS: ENOXAPARIN SOD 80 MG/0.8ML SYRINGE SC SCH (12:40)
--- NOTE | 2024-08-14 14:34 | DVHPN2 ---
Subjective Intubated and sedated FiO2 30% PEEP of 5 He is on a small dose of Levophed drip now Sedated with fentanyl only Follows commands and easily arousable Changes from previous H/P or p: Changes Objective Vitals Vital Signs Date Time Temp Pulse Resp B/P (MAP) Pulse Ox O2 Delivery O2 Flow Rate FiO2 08/14/24 12:05 84 21 112/55 (74) 99 30 08/14/24 07:48 Mechanical Ventilator 08/14/24 06:45 99.0 210.2 08/13/24 05:30 0 Intake/Output Intake and Output 08/14/24 07:00 Intake Total 4208.750 ml Output Total 2050 ml Balance 2158.750 ml Intake Oral 730 ml IV Total 3017.750 ml Tube Feeding 461 ml Output Urine Total 2050 ml Stool Total 0 ml General Appearance: Other (Intubated and sedated) Lungs: Clear to auscultation Cardiovascular: Regular rate, Normal S1, Normal S2 Abdomen: Normal bowel sounds, Soft, No tenderness Extremities: No edema Medications Current Medications Medications Dose Ordered Sig/Akiko Route Start Time Stop Time Status Last Admin Dose Admin Vancomycin HCl 200 ml @ 200 mls/hr Q12HR IV 08/10/24 22:00 UNV Pantoprazole Sodium 40 mg DAILY IV 08/11/24 10:00 08/14/24 09:45 40 MG Acetaminophen 650 mg Q6HP PRN [place] 08/10/24 23:30 08/11/24 01:13 650 MG Purified Water 250 ml Q6HR GT 08/11/24 12:00 08/14/24 12:50 250 ML Dextrose 1,000 ml @ 100 mls/hr Q10H IV 08/11/24 11:30 08/14/24 12:40 100 MLS/HR Diagnostic Test (Pha) 1 strip IQ4HR 08/11/24 16:00 08/14/24 12:18 1 STRIP Insulin Human Regular IQ4HR SC 08/11/24 16:00 08/14/24 12:23 2 UNITS Dextrose 50 ml UD PRN IV 08/11/24 14:45 Norepinephrine Bitartrate 16 mg/ Sodium Chloride 250 ml @ 1.875 mls/ hr Q24H IV 08/11/24 18:30 08/13/24 20:29 5.625 MLS/HR Enteral Nutritional Formula 240 ml 50ML/HR GT 08/12/24 12:00 Fentanyl Citrate 250 ml @ 2.5 mls/hr Q24H IV 08/12/24 12:00 08/14/24 01:01 12.5 MLS/HR Enteral Nutritional Formula 1,000 ml UD GT 08/12/24 16:45 08/14/24 06:22 1,000 ML Acetaminophen 650 mg Q6HP PRN PO 08/13/24 11:45 Ceftriaxone Sodium 50 ml @ 100 mls/hr DAILY@09 IV 08/13/24 17:00 08/14/24 09:02 100 MLS/HR Enoxaparin Sodium 80 mg Q12H SC 08/14/24 12:30 08/14/24 12:40 80 MG Laboratory Results Laboratory Tests 08/14/24 03:35 Chemistry Test 08/14/24 03:35 Albumin 3.2 g/dL (3.2-4.8) Calcium Level 8.7 mg/dL (8.7-10.4) Magnesium Level 2.9 mg/dL (1.6-2.6) H Total Protein 5.6 g/dL (5.7-8.2) L Coagulation Test 08/14/24 03:35 Prothrombin Time 13.9 sec (9.3-11.8) H Prothrombin Time INR 1.34 (0.9-1.15) H Activated Partial Thromboplast Time 30.9 SEC (24.5-34.5) LFT Test 08/14/24 03:35 Alanine Aminotransferase (ALT) 130 U/L (7-40) H Alkaline Phosphatase 141 U/L (46-116) H Aspartate Amino Transferase (AST) 202 U/L (13-40) H Total Bilirubin 2.1 mg/dL (0.2-1.0) H Urinalysis Test 08/11/24 13:02 Urine Color Yellow (Yellow) Urine Clarity Turbid (Clear) H Urine pH 5.5 (5.0-9.0) Urine Specific [place] 1.018 (1.001-1.035) Urine Protein 1+ (Negative) H Urine Ketones Negative (Negative) Urine Blood 3+ /uL (Negative) H Urine Nitrite Negative (Negative) Urine Bilirubin Negative (Negative) Urine Urobilinogen 4 mg/dL (Negative) H Urine Leukocyte Esterase 1+ /uL (Negative) Urine RBC 13 /hpf (0 - 3) Urine WBC 14 /hpf (0 - 3) Urine Squamous Epithelial Cells Few /hpf (<5) Urine Bacteria Few /hpf (None Seen) H Urine Hyaline Casts Few /lpf (0 - 2) Urine Granular Casts Few /lpf (0) Urine Mucus Few (None Seen) Urine Creatinine 67.44 mg/dL (30.0-125.0) Urine Protein/Creatinine Ratio 1.00 Urine Sodium 32 mmol/L (40-220) L Urine Glucose Normal mg/dL (Normal) Urine Total Protein 67.3 mg/dL (1-14) H Blood Gas Results Test 08/14/24 05:48 Arterial Blood pH 7.374 (7.350-7.450) FiO2 % 30.0 Microbiology Microbiology Date/Time Source Procedure Growth Status 08/13/24 11:10 Nose MRSA Screen - Final Complete 08/12/24 19:02 Bronchial Washings Gram Stain Pending Resulted 08/12/24 19:02 Bronchial Washings Respiratory Culture - Preliminary Resulted 08/10/24 14:08 Blood Blood Culture - Preliminary NO GROWTH AFTER 72 HOURS OF INCUBATION. Resulted Assessment/Plan Assessment/Plan Acute hypoxic respiratory failure Metabolic encephalopathy Sepsis with septic shock Severe hypernatremia Severe dehydration DAYLIN due to vasomotor nephropathy Rhabdomyolysis Parkinson's disease Decubitus ulcer RLE DVT PLAN: Admit to ICU Levophed drip Sedation as needed Blood Cx Urine Cx IV antibiotics Mechanical ventilation Pulmonary consult Nephrology consult IV fluids Add Free Water per NG tube GI prophylaxis: Protonix 08/12/2024: Switch Versed to fentanyl for sedation Order labs to check his sodium today Continue free water Continue IV fluids Continue IV antibiotics Check the CK Norepinephrine drip as needed Mechanical ventilation Monitor closely Start nutrition 08/13/2024: Blood cultures are negative Continue IV fluids Continue free water Continue IV antibiotics Sedation as needed with fentanyl Levophed drip for blood pressure support Pulmonary consultation Status post bronchoscopy yesterday for atelectasis and mucus plugs suction Discussed with the daughter at bedside Continue nutrition tube feeding Do a venous Doppler to rule out DVT Echocardiogram pending today DVT RLE: Since he is coagulopathic and thrombocytopenic, anticoagulation is contraindicated until platelets are higher Switch Meropenem to Rocephin Continue Vanco for now, will DC if MRSA screening is negative 08/14/2024: Respiratory culture showed Klebsiella pneumoniae Continue Rocephin IV Discontinue vancomycin MRSA screening is negative Continue free water Continue IV fluids with D5W Sedation as needed Tapered down norepinephrine as tolerated CPAP per Pulmonary Discussed with the family at the bedside Full code Plan discussed with: Daughter, Other My Orders Orders - JELENA GAINES MD Procedure Category Date Status Time Ceftriaxone 1gm/50ml PHA 08/13/24 In Process D5w (Rocephin) 17:00 Enoxaparin Sodium PHA 08/14/24 In Process (Lovenox) 12:30 Date of Service: Aug 14, 2024 Billing Provider: JELENA GAINES MD Common Visit Codes: NOT BILLABLE JELENA GAINES MD Aug 14, 2024 14:34
--- NOTE | 2024-08-14 15:57 | DVHPN2 ---
Progress Note - Dictate Date Seen: Aug 14, 2024 Medical Necessity Reason Pt with a Central, PICC or Fol: Yes The following are medically ne: Powell Catheter Reason for powell catheter: Strict I&O Subjective urine output nonoliguric, patient's daughter and patient's son-in-law at bedside vital signs Vital Sign Date Time Temp Pulse Resp B/P (MAP) Pulse Ox O2 Delivery O2 Flow Rate FiO2 08/14/24 14:37 91/47 08/14/24 12:05 84 21 99 30 08/14/24 07:48 Mechanical Ventilator 08/14/24 06:45 99.0 210.2 08/13/24 05:30 0 Total Intake and Output 08/13/24 08/13/24 08/14/24 15:00 23:00 07:00 Intake Total 1107.125 ml 1396.750 ml 1704.875 ml Output Total 550 ml 1500 ml Balance 1107.125 ml 846.750 ml 204.875 ml medications Current Medications Medications Dose Ordered Sig/Akiko Route Start Time Stop Time Status Last Admin Dose Admin Vancomycin HCl 200 ml @ 200 mls/hr Q12HR IV 08/10/24 22:00 UNV Pantoprazole Sodium 40 mg DAILY IV 08/11/24 10:00 08/14/24 09:45 40 MG Acetaminophen 650 mg Q6HP PRN [place] 08/10/24 23:30 08/11/24 01:13 650 MG Purified Water 250 ml Q6HR GT 08/11/24 12:00 08/14/24 12:50 250 ML Dextrose 1,000 ml @ 100 mls/hr Q10H IV 08/11/24 11:30 08/14/24 12:40 100 MLS/HR Diagnostic Test (Pha) 1 strip IQ4HR 08/11/24 16:00 08/14/24 12:18 1 STRIP Insulin Human Regular IQ4HR SC 08/11/24 16:00 08/14/24 12:23 2 UNITS Dextrose 50 ml UD PRN IV 08/11/24 14:45 Norepinephrine Bitartrate 16 mg/ Sodium Chloride 250 ml @ 1.875 mls/ hr Q24H IV 08/11/24 18:30 08/13/24 20:29 5.625 MLS/HR Enteral Nutritional Formula 240 ml 50ML/HR GT 08/12/24 12:00 Fentanyl Citrate 250 ml @ 2.5 mls/hr Q24H IV 08/12/24 12:00 08/14/24 14:37 17.5 MLS/HR Enteral Nutritional Formula 1,000 ml UD GT 08/12/24 16:45 08/14/24 06:22 1,000 ML Acetaminophen 650 mg Q6HP PRN PO 08/13/24 11:45 Ceftriaxone Sodium 50 ml @ 100 mls/hr DAILY@09 IV 08/13/24 17:00 08/14/24 09:02 100 MLS/HR Enoxaparin Sodium 80 mg Q12H SC 08/14/24 12:30 08/14/24 12:40 80 MG objective gen: Intubated and sedated lungs: cta cvs: no rub ext: trace edema laboratory and microbiology Laboratory Tests 08/14/24 03:35 Test 08/14/24 03:35 Range/Units Serum Glucose 155 H 74-106 mg/dL Assessment/Plan Acute kidney injury secondary hemodynamic mediated Acute respiratory failure patient intubated on ventilator Hyponatremia due to dehydration Rhabdomyolysis Jaundice Transaminitis Hypoalbuminemia Recommendations resolving acute kidney injury Hyponatremia improving recommendation to continue with current Free water dose Discussed plan of care from nephrology perspective with patient's family Dietary Evaluation Review Comments: 1. If on Vent Consider Nepro 30ml/hr x 24 hr,( 58g pro 1274 kcal). this will support pt's needs at 100% protein, 94 % kcal. 2. If EN not possible, and NPO > 7 days, consider TPN per pharmacy. 3. If off Vent, and pass speech eval, offer Renal Specific -50g protein 2g Na 3 K Low phos, 4. If off vent on hemo dialysis, pass speech eval, offer Renal Standard 2 gNa 3 K, Low Phos diet. Expected Outcomes/Goals: advance to diet able to eat independently. Plan discussed with: Other MILO AVENDANO MD Aug 14, 2024 15:57
--- NOTE | 2024-08-14 20:19 | DVHPN2 ---
Progress Note - Dictate Date Seen: Aug 14, 2024 Medical Necessity Reason Pt with a Central, PICC or Fol: Yes The following are medically ne: Powell Catheter Reason for powell catheter: Strict I&O Subjective Patient seen and examined at bedside. Sedated, intubated on mechanical ventilator. Overnight events reviewed. vital signs Vital Sign Date Time Temp Pulse Resp B/P (MAP) Pulse Ox O2 Delivery O2 Flow Rate FiO2 08/14/24 20:00 99.0 83 14 119/58 (78) 100 210.2 08/14/24 18:00 30 08/14/24 18:00 Mechanical Ventilator+ 08/13/24 05:30 0 Total Intake and Output 08/13/24 08/13/24 08/14/24 15:00 23:00 07:00 Intake Total 1107.125 ml 1396.750 ml 1808.625 ml Output Total 550 ml 1500 ml Balance 1107.125 ml 846.750 ml 308.625 ml medications Current Medications Medications Dose Ordered Sig/Akiko Route Start Time Stop Time Status Last Admin Dose Admin Vancomycin HCl 200 ml @ 200 mls/hr Q12HR IV 08/10/24 22:00 UNV Pantoprazole Sodium 40 mg DAILY IV 08/11/24 10:00 08/14/24 09:45 40 MG Acetaminophen 650 mg Q6HP PRN ND 08/10/24 23:30 08/11/24 01:13 650 MG Purified Water 250 ml Q6HR GT 08/11/24 12:00 08/14/24 19:03 250 ML Dextrose 1,000 ml @ 100 mls/hr Q10H IV 08/11/24 11:30 08/14/24 12:40 100 MLS/HR Diagnostic Test (Pha) 1 strip IQ4HR 08/11/24 16:00 08/14/24 19:55 1 STRIP Insulin Human Regular IQ4HR SC 08/11/24 16:00 08/14/24 19:56 2 UNITS Dextrose 50 ml UD PRN IV 08/11/24 14:45 Norepinephrine Bitartrate 16 mg/ Sodium Chloride 250 ml @ 1.875 mls/ hr Q24H IV 08/11/24 18:30 08/13/24 20:29 5.625 MLS/HR Enteral Nutritional Formula 240 ml 50ML/HR GT 08/12/24 12:00 Fentanyl Citrate 250 ml @ 2.5 mls/hr Q24H IV 08/12/24 12:00 08/14/24 14:37 17.5 MLS/HR Enteral Nutritional Formula 1,000 ml UD GT 08/12/24 16:45 08/14/24 06:22 1,000 ML Acetaminophen 650 mg Q6HP PRN PO 08/13/24 11:45 Ceftriaxone Sodium 50 ml @ 100 mls/hr DAILY@09 IV 08/13/24 17:00 08/14/24 09:02 100 MLS/HR Enoxaparin Sodium 80 mg Q12H SC 08/14/24 12:30 08/14/24 12:40 80 MG objective Gen.: Patient lying in bed in medical ICU. Sedated, intubated on mechanical ventilator. Head: Normocephalic, atraumatic. Eyes: PERRLA. Ears: Normal external anatomy. Throat: Endotracheal tube and orogastric tube in place. Neck: Supple, trachea midline. Chest: Transmitted breath sounds bilaterally. Decreased air entry bilaterally. No wheezing. Bibasilar crackles. Cardiovascular: Positive S1, positive S2. Regular rate and rhythm. Abdomen: Positive bowel sounds in all 4 quadrants. Soft, nontender, nondistended. : Powell in place. Normal external genitalia. Rectal: Deferred. Skin: Warm, dry. Intact. Extremities: 2+ radial pulses bilaterally. No lower extremity edema. Neuro: Sedated. laboratory and microbiology Laboratory Tests 08/14/24 03:35 Test 08/14/24 03:35 Range/Units Serum Glucose 155 H 74-106 mg/dL Assessment/Plan Impression: Acute hypoxic respiratory failure On mechanical ventilator Leukocytosis Hypernatremia Parkinson's disease Acute metabolic encephalopathy Decubitus ulcers Sepsis Rhabdomyolysis Acute kidney injury Events: Remains on vent support On assist control with respiratory rate of 14, tidal volume 500, PEEP of 5, FiO2 at 30% Sedated on Fentanyl. Off pressors, hemodynamically stable. ABG reviewed, compensated. CXR reviewed; demonstrates mild pulmonary vascular congestion. No pleural effusion or pneumothorax. Devices in place. Continue antibiotics Blood cultures show no growth after 72 hours. Sputum cultures grew Klebsiella pneumoniae D5W at 100 ml/hr + Free water for hypernatremia Monitor sodium. Monitor renal function. Monitor electrolytes. Supplement as necessary. Accu-Cheks, ISS 08/12/24 - S/p therapeutic bronchoscopy w/ RML BAL - Mucous plugging from L6-L10 and R1-R10. See separate procedure note for details. Labs and imaging reviewed. Rest of plan as noted below. Plan: s/p intubation on mechanical ventilator CT head: No acute intracranial hemorrhage or stroke. On assist control with respiratory rate of 14, tidal volume 500, PEEP of 5, FiO2 at 30% Titrate FIO2 to keep O2 saturation above 92%. VAP bundle Daily ABG and CXR while intubated. Sedate for ventilatory synchrony Pressors if necessary for hemodynamic support. Titrate to keep MAP above 65 mmHg/SBP above 90 mmHg. Continue antibiotics. F/u cultures. Monitor renal function due to Acute kidney injury. Monitor electrolytes. Supplement as necessary. Monitor sodium due to hypernatremia, sodium 168 on 08/10 IV fluid hydration Do not over correct sodium. Nutritional support. Accu-Cheks, ISS. GI prophylaxis - Protonix DVT prophylaxis. Condition: Critical Prognosis: Poor given multiple comorbidities. Rest of plan per hospitalist and other consultants. A total of 35 minutes of critical care time was spent reviewing the patient record, examining the patient, making a diagnostic and therapeutic plan, discussing this plan with the medical personnel, following up on diagnostic studies and following the patient for clinical stability excluding any and all procedures. At least 50% of this time was spent in direct, [id number] contact. Thank you Dr. Newman for allowing me to participate in this patient's care. Further recommendations will depend on patient's clinical course. Please do not hesitate to contact me if you have any questions or concerns. This medical document was created using an electronic medical record system with [employer] dictation system. Although this document has been carefully reviewed, there may still be some phonetic and typographical errors. These areas are purely typographical due to imperfections of the software programs, and do not reflect any compromise in the patient's medical care. Dietary Evaluation Review Comments: 1. If on Vent Consider Nepro 30ml/hr x 24 hr,( 58g pro 1274 kcal). this will support pt's needs at 100% protein, 94 % kcal. 2. If EN not possible, and NPO > 7 days, consider TPN per pharmacy. 3. If off Vent, and pass speech eval, offer Renal Specific -50g protein 2g Na 3 K Low phos, 4. If off vent on hemo dialysis, pass speech eval, offer Renal Standard 2 gNa 3 K, Low Phos diet. Expected Outcomes/Goals: advance to diet able to eat independently. Plan discussed with: Other (SRAVANI Porter) Critical Care Time(min): 35 REY REAGAN MD Aug 14, 2024 20:19
[2024-08-15] VITALS (103 sets, daily range): BP systolic 93–147; BP diastolic 44–77; PULSE 79–104; RESP 9–26; TEMP 98.4–99.9; O2SAT 85–100
[2024-08-15 04:08] LABS: Basophils # (auto) 0 10 ^3/uL (0-0.2); Eosinophils # (auto) 0.1 10 ^3/uL (0-0.8); Eosinophils % (auto) 1.3 % (0.0-7.0); Hematocrit 34.2 % (41.0-53.0); Hemoglobin 11.4 g/dL (13.5-17.5); Lymphocytes # (auto) 0.5 10 ^3/uL (0.4-5.4); Lymphocytes % (auto) 6.3 % (10.0-50.0); Mean Corpuscular Hemoglobin 30.2 pg (28.0-32.0); Mean Corpuscular Hgb Conc. 33.2 g/dL (32.0-36.0); Mean Corpuscular Volume 90.8 fL (80.0-100.0); Monocytes # (auto) 0.4 10 ^3/uL (0-1.3); Monocytes % (auto) 4.9 % (0.0-12.0); Neutrophils # (auto) 6.5 10 ^3/uL (1.6-8.6); Neutrophils % (auto) 87.5 % (37.0-80.0); Nucleated Red Blood Cells % 0.1 %; Platelet Count (auto) 76 10^3/uL (140-450); Red Blood Cells 3.76 10^6/uL (4.5-5.90); Red Cell Distribution Width 13.4 % (11.8-14.3); White Blood Cell 7.5 10^3/uL (4.4-10.8)
[2024-08-15 04:26] LABS: Anion Gap 7 (5-15); BUN/Creatinine Ratio 36.2 (10.0-20.0); Carbon Dioxide 28 mmol/L (20-31); Potassium 4.5 mmol/L (3.5-5.1)
[2024-08-15 04:28] LABS: Total Protein 5.7 g/dL (5.7-8.2)
[2024-08-15 04:34] LABS: Alanine Aminotransferase 158 U/L (7-40); Albumin 3.1 g/dL (3.2-4.8); Alkaline Phosphatase 143 U/L (46-116); Aspartate Aminotransferase 208 U/L (13-40); Bilirubin, Total 2.8 mg/dL (0.2-1.0); Blood Urea Nitrogen 47 mg/dL (9-23); Chloride 118 mmol/L (98-107); Glucose 111 mg/dL (74-106); Sodium 153 mmol/L (136-145)
--- NOTE | 2024-08-15 05:28 | DVH ---
CHEST RADIOGRAPH Indication: vent Technique: Single frontal view of the chest was obtained Comparison: XY CHEST PORTABLE on DOS: 08/14/24, XY CHEST PORTABLE on DOS: 08/13/24, XY CHEST XRAY 1 V IEW on DOS: 08/12/24 IMPRESSION: The heart appears normal in size. The lungs appear clear without focal airspace opacity, effusion, o r pneumothorax. Support lines and tubes appear unchanged in satisfactory position.
[2024-08-15 07:04] LABS: Base Excess -1.1 mmol/L (-2.0-3.0)
[2024-08-15 11:25] LABS: Base Excess 1.2 mmol/L (-2.0-3.0)
[2024-08-15] MEDS ORDERED: CLINIMIX PER PHARMACY 0 ML IV SCH (12:15)
--- NOTE | 2024-08-15 12:17 | DVHPN2 ---
Subjective Was just extubated Follows commands Changes from previous H/P or p: Changes Objective Vitals Vital Signs Date Time Temp Pulse Resp B/P (MAP) Pulse Ox O2 Delivery O2 Flow Rate FiO2 08/15/24 11:30 131/59 08/15/24 11:20 100 08/15/24 11:20 12 08/15/24 10:19 98 30 08/15/24 10:00 Mechanical Ventilator+ 08/15/24 07:00 99.3 210.7 Intake/Output Intake and Output 08/15/24 07:00 Intake Total 4272.343 ml Output Total 2575 ml Balance 1697.343 ml Intake Oral 1000 ml IV Total 2797.343 ml Tube Feeding 475 ml Output Urine Total 2575 ml Stool Total 0 ml General Appearance: Alert, Other Lungs: Clear to auscultation Cardiovascular: Regular rate, Normal S1, Normal S2 Abdomen: Normal bowel sounds, Soft, No tenderness Extremities: No edema Medications Current Medications Medications Dose Ordered Sig/Akiko Route Start Time Stop Time Status Last Admin Dose Admin Vancomycin HCl 200 ml @ 200 mls/hr Q12HR IV 08/10/24 22:00 UNV Pantoprazole Sodium 40 mg DAILY IV 08/11/24 10:00 08/15/24 09:32 40 MG Acetaminophen 650 mg Q6HP PRN SD 08/10/24 23:30 08/11/24 01:13 650 MG Purified Water 250 ml Q6HR GT 08/11/24 12:00 08/15/24 06:00 250 ML Dextrose 1,000 ml @ 100 mls/hr Q10H IV 08/11/24 11:30 08/14/24 23:00 100 MLS/HR Diagnostic Test (Pha) 1 strip IQ4HR 08/11/24 16:00 08/15/24 08:42 1 STRIP Insulin Human Regular IQ4HR SC 08/11/24 16:00 08/15/24 00:10 2 UNITS Dextrose 50 ml UD PRN IV 08/11/24 14:45 Norepinephrine Bitartrate 16 mg/ Sodium Chloride 250 ml @ 1.875 mls/ hr Q24H IV 08/11/24 18:30 08/13/24 20:29 5.625 MLS/HR Enteral Nutritional Formula 240 ml 50ML/HR GT 08/12/24 12:00 Fentanyl Citrate 250 ml @ 2.5 mls/hr Q24H IV 08/12/24 12:00 08/15/24 02:54 17.5 MLS/HR Enteral Nutritional Formula 1,000 ml UD GT 08/12/24 16:45 08/14/24 06:22 1,000 ML Acetaminophen 650 mg Q6HP PRN PO 08/13/24 11:45 Ceftriaxone Sodium 50 ml @ 100 mls/hr DAILY@09 IV 08/13/24 17:00 08/15/24 09:31 100 MLS/HR Enoxaparin Sodium 80 mg Q12H SC 08/14/24 12:30 08/15/24 00:03 80 MG Laboratory Results Laboratory Tests 08/15/24 03:00 Chemistry Test 08/15/24 03:00 Albumin 3.1 g/dL (3.2-4.8) L Calcium Level 9.0 mg/dL (8.7-10.4) Magnesium Level 3.0 mg/dL (1.6-2.6) H Total Protein 5.7 g/dL (5.7-8.2) LFT Test 08/15/24 03:00 Alanine Aminotransferase (ALT) 158 U/L (7-40) H Alkaline Phosphatase 143 U/L (46-116) H Aspartate Amino Transferase (AST) 208 U/L (13-40) H Total Bilirubin 2.8 mg/dL (0.2-1.0) H Urinalysis Test 08/11/24 13:02 Urine Color Yellow (Yellow) Urine Clarity Turbid (Clear) H Urine pH 5.5 (5.0-9.0) Urine Specific Pickerel 1.018 (1.001-1.035) Urine Protein 1+ (Negative) H Urine Ketones Negative (Negative) Urine Blood 3+ /uL (Negative) H Urine Nitrite Negative (Negative) Urine Bilirubin Negative (Negative) Urine Urobilinogen 4 mg/dL (Negative) H Urine Leukocyte Esterase 1+ /uL (Negative) Urine RBC 13 /hpf (0 - 3) Urine WBC 14 /hpf (0 - 3) Urine Squamous Epithelial Cells Few /hpf (<5) Urine Bacteria Few /hpf (None Seen) H Urine Hyaline Casts Few /lpf (0 - 2) Urine Granular Casts Few /lpf (0) Urine Mucus Few (None Seen) Urine Creatinine 67.44 mg/dL (30.0-125.0) Urine Protein/Creatinine Ratio 1.00 Urine Sodium 32 mmol/L (40-220) L Urine Glucose Normal mg/dL (Normal) Urine Total Protein 67.3 mg/dL (1-14) H Blood Gas Results Test 08/15/24 06:55 08/15/24 11:20 Arterial Blood pH 7.415 (7.350-7.450) 7.421 (7.350-7.450) FiO2 % 30.0 30.0 Microbiology Microbiology Date/Time Source Procedure Growth Status 08/13/24 11:10 Nose MRSA Screen - Final Complete 08/12/24 19:02 Bronchial Washings Gram Stain - Final Resulted 08/12/24 19:02 Respiratory Culture - Preliminary Klebsiella pneumoniae Presumptive Ema albicans Resulted 08/10/24 14:08 Blood Blood Culture - Preliminary NO GROWTH AFTER 72 HOURS OF INCUBATION. Resulted Assessment/Plan Assessment/Plan Acute hypoxic respiratory failure Metabolic encephalopathy Sepsis with septic shock Severe hypernatremia Severe dehydration DAYLIN due to vasomotor nephropathy Rhabdomyolysis Parkinson's disease Decubitus ulcer RLE DVT PLAN: Admit to ICU Levophed drip Sedation as needed Blood Cx Urine Cx IV antibiotics Mechanical ventilation Pulmonary consult Nephrology consult IV fluids Add Free Water per NG tube GI prophylaxis: Protonix 08/12/2024: Switch Versed to fentanyl for sedation Order labs to check his sodium today Continue free water Continue IV fluids Continue IV antibiotics Check the CK Norepinephrine drip as needed Mechanical ventilation Monitor closely Start nutrition 08/13/2024: Blood cultures are negative Continue IV fluids Continue free water Continue IV antibiotics Sedation as needed with fentanyl Levophed drip for blood pressure support Pulmonary consultation Status post bronchoscopy yesterday for atelectasis and mucus plugs suction Discussed with the daughter at bedside Continue nutrition tube feeding Do a venous Doppler to rule out DVT Echocardiogram pending today DVT RLE: Since he is coagulopathic and thrombocytopenic, anticoagulation is contraindicated until platelets are higher Switch Meropenem to Rocephin Continue Vanco for now, will DC if MRSA screening is negative 08/14/2024: Respiratory culture showed Klebsiella pneumoniae Continue Rocephin IV Discontinue vancomycin MRSA screening is negative Continue free water Continue IV fluids with D5W Sedation as needed Tapered down norepinephrine as tolerated CPAP per Pulmonary Discussed with the family at the bedside Full code 08/15/24: Extubated Start Clinimix IV Neurology consult Continue IV Rocephin Lovenox NPO Discussed with daughter at the bedside Plan discussed with: Patient, Daughter My Orders Orders - JELENA GAINES MD Procedure Category Date Status Time Chest Portable XY 08/15/24 Resulted 06:00 Abg W/ Co-Ox RT 08/15/24 Logged 06:00 Code Status CODE 08/14/24 Transmitted 14:34 * Neurology Consult CONS 08/15/24 Transmitted 12:09 Complete Blood Count LAB 08/16/24 Verified 04:00 Comprehensive LAB 08/16/24 Verified Metabolic Panel 04:00 Magnesium LAB 08/16/24 Verified 04:00 Pt Request For Service PT 08/15/24 Transmitted 12:10 Date of Service: Aug 15, 2024 Billing Provider: JELENA GAINES MD Common Visit Codes: NOT BILLABLE JELENA GAINES MD Aug 15, 2024 12:17
--- NOTE | 2024-08-15 13:00 | ECG ---
[facility] Test Date: 2024-08-10 Test Time: 13:22:22 Pat Name: JASEN DIXON Department: ER Room: [address] [place] [address] A Gender: M [employer]: ULYSSES : 1945 Requested By: NAVIN AGUILAR Order Number: [id number] Reading MD: Steve Bell Measurements Intervals Floyd Rate: 91 P: 62 NJ: 113 QRS: 83 QRSD: 111 T: 77 QT: 407 QTc: 501 Interpretive Statements Sinus rhythm Ventricular premature complex Borderline short NJ interval Borderline right axis deviation Probable left ventricular hypertrophy Prolonged QT interval Artifact in lead(s) I,II,III,aVR,aVL,aVF,V1,V2,V3,V4,V5,V6 and baseline wander in lead(s) V3 Electronically Signed On 08-15-2024 22:08:28 PST by Steve Bell Please click the below link to view image of tracing.
[2024-08-15] MEDS: SOD CHL 0.45% 1,000 ML IV SCH (13:30)
[2024-08-15] MEDS: AMINO ACID INFUSION IN D5W 1,000 ML IV SCH (13:42)
--- NOTE | 2024-08-15 14:48 | DVHPN2 ---
Progress Note Date Seen: Aug 15, 2024 Medical Necessity Reason Pt with a Central, PICC or Fol: Yes The following are medically ne: Powell Catheter Reason for powell catheter: Strict I&O Subjective Review of Systems: RESPIRATORY:Abnormal Other Systems: Patient seen and examined by myself in f/u today, remained intubated on ventilator Objective vital signs Vital Sign Date Time Temp Pulse Resp B/P (MAP) Pulse Ox O2 Delivery O2 Flow Rate FiO2 08/15/24 11:30 131/59 08/15/24 11:20 100 08/15/24 11:20 12 08/15/24 10:19 98 30 08/15/24 10:00 Mechanical Ventilator+ 08/15/24 07:00 99.3 210.7 Total Intake and Output 08/14/24 08/14/24 08/15/24 15:00 23:00 07:00 Intake Total 962.343 ml 1739.375 ml 1570.625 ml Output Total 1375 ml 1200 ml Balance 962.343 ml 364.375 ml 370.625 ml medications Current Medications Medications Dose Ordered Sig/Akiko Route Start Time Stop Time Status Last Admin Dose Admin Vancomycin HCl 200 ml @ 200 mls/hr Q12HR IV 08/10/24 22:00 UNV Pantoprazole Sodium 40 mg DAILY IV 08/11/24 10:00 08/15/24 09:32 40 MG Acetaminophen 650 mg Q6HP PRN [place] 08/10/24 23:30 08/11/24 01:13 650 MG Norepinephrine Bitartrate 16 mg/ Sodium Chloride 250 ml @ 1.875 mls/ hr Q24H IV 08/11/24 18:30 08/13/24 20:29 5.625 MLS/HR Enteral Nutritional Formula 240 ml 50ML/HR GT 08/12/24 12:00 Acetaminophen 650 mg Q6HP PRN PO 08/13/24 11:45 Ceftriaxone Sodium 50 ml @ 100 mls/hr DAILY@09 IV 08/13/24 17:00 08/15/24 09:31 100 MLS/HR Enoxaparin Sodium 80 mg Q12H SC 08/14/24 12:30 08/15/24 12:58 80 MG Amino Acids 0 ml @ 0 mls/hr PER PHARMACY IV 08/15/24 12:15 Diagnostic Test (Pha) 1 strip Q6HR 08/15/24 18:00 Insulin Human Regular FOLLOW SLIDING SCALE Q6HR SC 08/15/24 18:00 Dextrose 50 ml UD IV 08/15/24 13:00 Amino Acids 1,000 ml @ 41 mls/hr DAILY@1400 IV 08/15/24 14:00 08/15/24 13:42 41 MLS/HR Sodium Chloride 1,000 ml @ 100 mls/hr Q10H IV 08/15/24 13:30 Examination: LUNGS:Normal, CVS:Normal, MSK:Normal laboratory and microbiology Laboratory Tests 08/15/24 03:00 Test 08/15/24 03:00 Range/Units Serum Glucose 111 H 74-106 mg/dL Microbiology Date/Time Source Procedure Growth Status 08/13/24 11:10 Nose MRSA Screen - Final Complete 08/12/24 19:02 Bronchial Washings Gram Stain - Final Resulted 08/12/24 19:02 Respiratory Culture - Preliminary Klebsiella pneumoniae Presumptive Ema albicans Resulted 08/10/24 14:08 Blood Blood Culture - Final NO GROWTH AFTER 5 DAYS OF INCUBATION. Complete Problem List/Assessment/Plan Problem List/Assessment/Plan Acute kidney injury secondary hemodynamic mediated Acute respiratory failure patient intubated on ventilator Hypernatremia due to dehydration Rhabdomyolysis Jaundice Transaminitis Hypoalbuminemia Recommendations Kidney function is improving Powell catheter Strict I&Os IVF D5W 100 cc/hour IV pressor for blood pressure support Rule out liver cirrhosis Albumin 25% IV piggyback kidney ultrasound reported WNL We will continue to follow Plan discussed with: Other (nurse) My Orders My Orders Orders - KAMILA LEMA MD Procedure Category Date Status Time Sod Chl 0.45% (Sodium PHA 08/15/24 In Process Chloride 0.45% Via 13:30 Dietary Evaluation Review Comments: 1. If on Vent Consider Nepro 30ml/hr x 24 hr,( 58g pro 1274 kcal). this will support pt's needs at 100% protein, 94 % kcal. 2. If EN not possible, and NPO > 7 days, consider TPN per pharmacy. 3. If off Vent, and pass speech eval, offer Renal Specific -50g protein 2g Na 3 K Low phos, 4. If off vent on hemo dialysis, pass speech eval, offer Renal Standard 2 gNa 3 K, Low Phos diet. Expected Outcomes/Goals: advance to diet able to eat independently. KAMILA LEMA MD Aug 15, 2024 14:48
[2024-08-15] MEDS: ACCU-CHEK COMFORT CURVE STRIP VI SCH (17:30)
[2024-08-15] MEDS: InsuLIN REG 1unit/0.01ml Soln (100units/ml) SC SCH (17:30)
[2024-08-15] MEDS: DEXTROSE (50%) 50ML SYRG IV SCH (17:32)
--- NOTE | 2024-08-15 23:28 | DVHPN2 ---
Progress Note - Dictate Date Seen: Aug 15, 2024 Medical Necessity Reason Pt with a Central, PICC or Fol: Yes The following are medically ne: Powell Catheter Reason for powell catheter: Strict I&O Subjective Patient seen and examined at bedside. Sedated, intubated on mechanical ventilator. Overnight events reviewed. vital signs Vital Sign Date Time Temp Pulse Resp B/P (MAP) Pulse Ox O2 Delivery O2 Flow Rate FiO2 08/15/24 23:15 99.0 83 20 123/52 (75) 100 210.2 08/15/24 22:00 Mechanical Ventilator+ 30 30 08/15/24 18:00 0 Total Intake and Output 08/14/24 08/14/24 08/15/24 15:00 23:00 07:00 Intake Total 962.343 ml 1739.375 ml 1570.625 ml Output Total 1375 ml 1200 ml Balance 962.343 ml 364.375 ml 370.625 ml medications Current Medications Medications Dose Ordered Sig/Akiko Route Start Time Stop Time Status Last Admin Dose Admin Vancomycin HCl 200 ml @ 200 mls/hr Q12HR IV 08/10/24 22:00 UNV Pantoprazole Sodium 40 mg DAILY IV 08/11/24 10:00 08/15/24 09:32 40 MG Acetaminophen 650 mg Q6HP PRN [place] 08/10/24 23:30 08/11/24 01:13 650 MG Norepinephrine Bitartrate 16 mg/ Sodium Chloride 250 ml @ 1.875 mls/ hr Q24H IV 08/11/24 18:30 08/13/24 20:29 5.625 MLS/HR Enteral Nutritional Formula 240 ml 50ML/HR GT 08/12/24 12:00 Acetaminophen 650 mg Q6HP PRN PO 08/13/24 11:45 Ceftriaxone Sodium 50 ml @ 100 mls/hr DAILY@09 IV 08/13/24 17:00 08/15/24 09:31 100 MLS/HR Enoxaparin Sodium 80 mg Q12H SC 08/14/24 12:30 08/15/24 12:58 80 MG Amino Acids 0 ml @ 0 mls/hr PER PHARMACY IV 08/15/24 12:15 Diagnostic Test (Pha) 1 strip Q6HR 08/15/24 18:00 08/15/24 17:30 1 STRIP Insulin Human Regular FOLLOW SLIDING SCALE Q6HR SC 08/15/24 18:00 Dextrose 50 ml UD IV 08/15/24 13:00 08/15/24 17:32 50 ML Amino Acids 1,000 ml @ 41 mls/hr DAILY@1400 IV 08/15/24 14:00 08/15/24 13:42 41 MLS/HR Sodium Chloride 1,000 ml @ 100 mls/hr Q10H IV 08/15/24 13:30 08/15/24 13:30 100 MLS/HR objective Gen.: Patient lying in bed in medical ICU. Sedated, intubated on mechanical ventilator. Head: Normocephalic, atraumatic. Eyes: PERRLA. Ears: Normal external anatomy. Throat: Endotracheal tube and orogastric tube in place. Neck: Supple, trachea midline. Chest: Transmitted breath sounds bilaterally. Decreased air entry bilaterally. No wheezing. Bibasilar crackles. Cardiovascular: Positive S1, positive S2. Regular rate and rhythm. Abdomen: Positive bowel sounds in all 4 quadrants. Soft, nontender, nondistended. : Powell in place. Normal external genitalia. Rectal: Deferred. Skin: Warm, dry. Intact. Extremities: 2+ radial pulses bilaterally. No lower extremity edema. Neuro: Sedated. laboratory and microbiology Laboratory Tests 08/15/24 03:00 Test 08/15/24 03:00 Range/Units Serum Glucose 111 H 74-106 mg/dL Assessment/Plan Impression: Acute hypoxic respiratory failure On mechanical ventilator Leukocytosis Hypernatremia Parkinson's disease Acute metabolic encephalopathy Decubitus ulcers Sepsis Rhabdomyolysis Acute kidney injury Events: Remains on vent support On assist control with respiratory rate of 14, tidal volume 500, PEEP of 5, FiO2 at 30% Sedated on Fentanyl. Off pressors, hemodynamically stable. ABG reviewed, compensated. CXR reviewed; demonstrates mild pulmonary vascular congestion. No pleural effusion or pneumothorax. Devices in place. Continue antibiotics Blood cultures show no growth after 72 hours. Sputum cultures grew Klebsiella pneumoniae D5W at 100 ml/hr + Free water for hypernatremia Monitor sodium. Monitor renal function. Monitor electrolytes. Supplement as necessary. Accu-Cheks, ISS Labs and imaging reviewed. Rest of plan as noted below. Plan: s/p intubation on mechanical ventilator CT head: No acute intracranial hemorrhage or stroke. On assist control with respiratory rate of 14, tidal volume 500, PEEP of 5, FiO2 at 30% Titrate FIO2 to keep O2 saturation above 92%. VAP bundle Daily ABG and CXR while intubated. Sedate for ventilatory synchrony Pressors if necessary for hemodynamic support. Titrate to keep MAP above 65 mmHg/SBP above 90 mmHg. Continue antibiotics. F/u cultures. Monitor renal function due to Acute kidney injury. Monitor electrolytes. Supplement as necessary. Monitor sodium due to hypernatremia, sodium 168 on 08/10 IV fluid hydration Do not over correct sodium. Nutritional support. Accu-Cheks, ISS. GI prophylaxis - Protonix DVT prophylaxis. Condition: Critical Prognosis: Poor given multiple comorbidities. Rest of plan per hospitalist and other consultants. A total of 35 minutes of critical care time was spent reviewing the patient record, examining the patient, making a diagnostic and therapeutic plan, discussing this plan with the medical personnel, following up on diagnostic studies and following the patient for clinical stability excluding any and all procedures. At least 50% of this time was spent in direct, [id number] contact. Thank you Dr. Newman for allowing me to participate in this patient's care. Further recommendations will depend on patient's clinical course. Please do not hesitate to contact me if you have any questions or concerns. This medical document was created using an electronic medical record system with [employer] dictation system. Although this document has been carefully reviewed, there may still be some phonetic and typographical errors. These areas are purely typographical due to imperfections of the software programs, and do not reflect any compromise in the patient's medical care. Dietary Evaluation Review Comments: 1. If on Vent Consider Nepro 30ml/hr x 24 hr,( 58g pro 1274 kcal). this will support pt's needs at 100% protein, 94 % kcal. 2. If EN not possible, and NPO > 7 days, consider TPN per pharmacy. 3. If off Vent, and pass speech eval, offer Renal Specific -50g protein 2g Na 3 K Low phos, 4. If off vent on hemo dialysis, pass speech eval, offer Renal Standard 2 gNa 3 K, Low Phos diet. Expected Outcomes/Goals: advance to diet able to eat independently. Plan discussed with: Other (RN, RT, MD) Critical Care Time(min): 35 REY REAGAN MD Aug 15, 2024 23:28
[2024-08-16] VITALS (97 sets, daily range): BP systolic 85–143; BP diastolic 47–71; PULSE 79–96; RESP 13–30; TEMP 99–99.7; O2SAT 98–100
[2024-08-16 04:14] LABS: Basophils # (auto) 0 10 ^3/uL (0-0.2); Eosinophils # (auto) 0 10 ^3/uL (0-0.8); Eosinophils % (auto) 0.2 % (0.0-7.0); Hematocrit 37.1 % (41.0-53.0); Hemoglobin 12.5 g/dL (13.5-17.5); Lymphocytes # (auto) 0.4 10 ^3/uL (0.4-5.4); Lymphocytes % (auto) 4.6 % (10.0-50.0); Mean Corpuscular Hemoglobin 30.4 pg (28.0-32.0); Mean Corpuscular Hgb Conc. 33.8 g/dL (32.0-36.0); Mean Corpuscular Volume 89.9 fL (80.0-100.0); Monocytes # (auto) 0.4 10 ^3/uL (0-1.3); Neutrophils # (auto) 8.8 10 ^3/uL (1.6-8.6); Neutrophils % (auto) 91.2 % (37.0-80.0); Nucleated Red Blood Cells % 0.1 %; Platelet Count (auto) 109 10^3/uL (140-450); Red Blood Cells 4.13 10^6/uL (4.5-5.90); Red Cell Distribution Width 13.4 % (11.8-14.3); White Blood Cell 9.6 10^3/uL (4.4-10.8)
[2024-08-16 04:27] LABS: Anion Gap 8 (5-15); BUN/Creatinine Ratio 37.4 (10.0-20.0); Carbon Dioxide 28 mmol/L (20-31); Magnesium 2.6 mg/dL (1.6-2.6); Triglycerides 131 mg/dL (< 150)
[2024-08-16 05:03] LABS: Sodium 155 mmol/L (136-145)
--- NOTE | 2024-08-16 05:03 | DVH ---
CHEST RADIOGRAPH Indication: CENTRAL LINE Technique: Single frontal view of the chest was obtained COMPARISON: XY CHEST PORTABLE on DOS: 08/15/24, XY CHEST PORTABLE on DOS: 08/14/24, XY CHEST PORTABLE on DOS: 08/13/24, XY CHEST XRAY 1 VIEW on DOS: 08/12/24, XY CHEST PORTABLE on DOS: 08/10/24, XY CHES T PORTABLE on DOS: 08/14/24 FINDINGS: Lines and Tubes: Right central venous catheter in satisfactory position Lungs: Mild congestion. Pleura: No effusion. No pneumothorax. Cardiomediastinal contours: Unremarkable Bones: Unremarkable IMPRESSION: No significant interval change.
[2024-08-16 05:04] LABS: Alanine Aminotransferase 201 U/L (7-40); Albumin 3.1 g/dL (3.2-4.8); Alkaline Phosphatase 157 U/L (46-116); Aspartate Aminotransferase 247 U/L (13-40); Bilirubin, Total 3.4 mg/dL (0.2-1.0); Blood Urea Nitrogen 43 mg/dL (9-23); Chloride 119 mmol/L (98-107); Glucose 128 mg/dL (74-106); Phosphorus 1.8 mg/dL (2.4-5.1)
--- NOTE | 2024-08-16 10:35 | DVHPN2 ---
Subjective Doing well on room air Follows commands Denies abdominal pain Still NPO Changes from previous H/P or p: Changes Objective Vitals Vital Signs Date Time Temp Pulse Resp B/P (MAP) Pulse Ox O2 Delivery O2 Flow Rate FiO2 08/16/24 07:00 99.3 85 22 118/54 (75) 100 210.7 08/16/24 06:00 Mechanical Ventilator+ 30 30 08/15/24 18:00 0 Intake/Output Intake and Output 08/16/24 07:00 Intake Total 1985.680 ml Output Total 2650 ml Balance -664.320 ml Intake Oral 0 ml IV Total 1985.680 ml Output Urine Total 2650 ml General Appearance: Alert, Other Lungs: Clear to auscultation Cardiovascular: Regular rate, Normal S1, Normal S2 Abdomen: Normal bowel sounds, Soft, No tenderness Extremities: No edema Medications Current Medications Medications Dose Ordered Sig/Akiko Route Start Time Stop Time Status Last Admin Dose Admin Vancomycin HCl 200 ml @ 200 mls/hr Q12HR IV 08/10/24 22:00 UNV Pantoprazole Sodium 40 mg DAILY IV 08/11/24 10:00 08/16/24 09:52 40 MG Acetaminophen 650 mg Q6HP PRN ID 08/10/24 23:30 08/11/24 01:13 650 MG Norepinephrine Bitartrate 16 mg/ Sodium Chloride 250 ml @ 1.875 mls/ hr Q24H IV 08/11/24 18:30 08/16/24 01:00 1.875 MLS/HR Enteral Nutritional Formula 240 ml 50ML/HR GT 08/12/24 12:00 Acetaminophen 650 mg Q6HP PRN PO 08/13/24 11:45 Ceftriaxone Sodium 50 ml @ 100 mls/hr DAILY@09 IV 08/13/24 17:00 08/16/24 09:53 100 MLS/HR Enoxaparin Sodium 80 mg Q12H SC 08/14/24 12:30 08/16/24 00:55 80 MG Amino Acids 0 ml @ 0 mls/hr PER PHARMACY IV 08/15/24 12:15 Diagnostic Test (Pha) 1 strip Q6HR 08/15/24 18:00 08/16/24 06:00 1 STRIP Insulin Human Regular FOLLOW SLIDING SCALE Q6HR SC 08/15/24 18:00 Dextrose 50 ml UD IV 08/15/24 13:00 08/15/24 17:32 50 ML Amino Acids 1,000 ml @ 41 mls/hr DAILY@1400 IV 08/15/24 14:00 08/15/24 13:42 41 MLS/HR Sodium Chloride 1,000 ml @ 100 mls/hr Q10H IV 08/15/24 13:30 08/16/24 07:44 100 MLS/HR Laboratory Results Laboratory Tests 08/16/24 03:30 Chemistry Test 08/16/24 03:30 Albumin 3.1 g/dL (3.2-4.8) L Calcium Level 9.0 mg/dL (8.7-10.4) Magnesium Level 2.6 mg/dL (1.6-2.6) Phosphorus Level 1.8 mg/dL (2.4-5.1) L Total Protein 6.0 g/dL (5.7-8.2) Lipid panel Test 08/16/24 03:30 Triglycerides Level 131 mg/dL (< 150) LFT Test 08/16/24 03:30 Alanine Aminotransferase (ALT) 201 U/L (7-40) H Alkaline Phosphatase 157 U/L (46-116) H Aspartate Amino Transferase (AST) 247 U/L (13-40) H Total Bilirubin 3.4 mg/dL (0.2-1.0) H Urinalysis Test 08/11/24 13:02 Urine Color Yellow (Yellow) Urine Clarity Turbid (Clear) H Urine pH 5.5 (5.0-9.0) Urine Specific [place] 1.018 (1.001-1.035) Urine Protein 1+ (Negative) H Urine Ketones Negative (Negative) Urine Blood 3+ /uL (Negative) H Urine Nitrite Negative (Negative) Urine Bilirubin Negative (Negative) Urine Urobilinogen 4 mg/dL (Negative) H Urine Leukocyte Esterase 1+ /uL (Negative) Urine RBC 13 /hpf (0 - 3) Urine WBC 14 /hpf (0 - 3) Urine Squamous Epithelial Cells Few /hpf (<5) Urine Bacteria Few /hpf (None Seen) H Urine Hyaline Casts Few /lpf (0 - 2) Urine Granular Casts Few /lpf (0) Urine Mucus Few (None Seen) Urine Creatinine 67.44 mg/dL (30.0-125.0) Urine Protein/Creatinine Ratio 1.00 Urine Sodium 32 mmol/L (40-220) L Urine Glucose Normal mg/dL (Normal) Urine Total Protein 67.3 mg/dL (1-14) H Blood Gas Results Test 08/15/24 11:20 Arterial Blood pH 7.421 (7.350-7.450) FiO2 % 30.0 Microbiology Microbiology Date/Time Source Procedure Growth Status 08/13/24 11:10 Nose MRSA Screen - Final Complete 08/12/24 19:02 Bronchial Washings Gram Stain - Final Resulted 08/12/24 19:02 Respiratory Culture - Preliminary Klebsiella pneumoniae Presumptive Ema albicans Resulted 08/10/24 14:08 Blood Blood Culture - Final NO GROWTH AFTER 5 DAYS OF INCUBATION. Complete Assessment/Plan Assessment/Plan Acute hypoxic respiratory failure Metabolic encephalopathy Sepsis with septic shock Severe hypernatremia Severe dehydration DAYLIN due to vasomotor nephropathy Rhabdomyolysis Parkinson's disease Decubitus ulcer RLE DVT PLAN: Admit to ICU Levophed drip Sedation as needed Blood Cx Urine Cx IV antibiotics Mechanical ventilation Pulmonary consult Nephrology consult IV fluids Add Free Water per NG tube GI prophylaxis: Protonix 08/12/2024: Switch Versed to fentanyl for sedation Order labs to check his sodium today Continue free water Continue IV fluids Continue IV antibiotics Check the CK Norepinephrine drip as needed Mechanical ventilation Monitor closely Start nutrition 08/13/2024: Blood cultures are negative Continue IV fluids Continue free water Continue IV antibiotics Sedation as needed with fentanyl Levophed drip for blood pressure support Pulmonary consultation Status post bronchoscopy yesterday for atelectasis and mucus plugs suction Discussed with the daughter at bedside Continue nutrition tube feeding Do a venous Doppler to rule out DVT Echocardiogram pending today DVT RLE: Since he is coagulopathic and thrombocytopenic, anticoagulation is contraindicated until platelets are higher Switch Meropenem to Rocephin Continue Vanco for now, will DC if MRSA screening is negative 08/14/2024: Respiratory culture showed Klebsiella pneumoniae Continue Rocephin IV Discontinue vancomycin MRSA screening is negative Continue free water Continue IV fluids with D5W Sedation as needed Tapered down norepinephrine as tolerated CPAP per Pulmonary Discussed with the family at the bedside Full code 08/15/24: Extubated Start Clinimix IV Neurology consult Continue IV Rocephin Lovenox NPO Discussed with daughter at the bedside 08/16/2024: Acute respiratory failure: The patient is on room air Nutrition: Continue Clinimix Dehydration and hypernatremia: Continue IV fluids Hypernatremia: Swallow eval and start diet as soon as possible to correct his hypernatremia Discussed with the daughter at the bedside Parkinson's disease: Restart Sinemet once able to swallow Elevated liver function tests: Abdominal ultrasound Right leg DVT: Continue Lovenox Plan discussed with: Patient, Daughter My Orders Orders - JELENA GAINES MD Procedure Category Date Status Time * Neurology Consult CONS 08/15/24 Transmitted 12:09 Pt Request For Service PT 08/15/24 Logged 12:10 Clinimix Per Pharmacy PHA 08/15/24 In Process 12:15 Glucose Blood PHA 08/15/24 In Process (Accu-Chek Comfort 18:00 Insulin R (Human) PHA 08/15/24 In Process (Insulin R) 18:00 Dextrose 50% Syringe PHA 08/15/24 In Process 13:00 Clinimix Per Pharmacy JOHN 08/15/24 In Process 14:00 Amino Acid Infusion PHA 08/15/24 In Process In D5w (Clinimix 4.2 14:00 Chest Xray 1 View XY 08/16/24 Resulted 04:[address] 08/16/24 Logged 09:15 Date of Service: Aug 16, 2024 Billing Provider: JELENA GAINES MD Common Visit Codes: NOT BILLABLE JELENA GAINES MD Aug 16, 2024 10:35
--- NOTE | 2024-08-16 10:49 | DVHPN2 ---
Progress Note Date Seen: Aug 16, 2024 Medical Necessity Reason Pt with a Central, PICC or Fol: Yes The following are medically ne: Powell Catheter Reason for powell catheter: Strict I&O Subjective Review of Systems: RESPIRATORY:Abnormal Other Systems: Patient seen and examined by myself today in follow-up, patient remained intubated on ventilator Objective vital signs Vital Sign Date Time Temp Pulse Resp B/P (MAP) Pulse Ox O2 Delivery O2 Flow Rate FiO2 08/16/24 07:00 99.3 85 22 118/54 (75) 100 210.7 08/16/24 06:00 Mechanical Ventilator+ 30 30 08/15/24 18:00 0 Total Intake and Output 08/15/24 08/15/24 08/16/24 15:00 23:00 07:00 Intake Total 315.625 ml 815.000 ml 855.055 ml Output Total 1300 ml 1350 ml Balance 315.625 ml -485.000 ml -494.945 ml medications Current Medications Medications Dose Ordered Sig/Akiko Route Start Time Stop Time Status Last Admin Dose Admin Vancomycin HCl 200 ml @ 200 mls/hr Q12HR IV 08/10/24 22:00 UNV Pantoprazole Sodium 40 mg DAILY IV 08/11/24 10:00 08/16/24 09:52 40 MG Acetaminophen 650 mg Q6HP PRN WI 08/10/24 23:30 08/11/24 01:13 650 MG Norepinephrine Bitartrate 16 mg/ Sodium Chloride 250 ml @ 1.875 mls/ hr Q24H IV 08/11/24 18:30 08/16/24 01:00 1.875 MLS/HR Enteral Nutritional Formula 240 ml 50ML/HR GT 08/12/24 12:00 Acetaminophen 650 mg Q6HP PRN PO 08/13/24 11:45 Ceftriaxone Sodium 50 ml @ 100 mls/hr DAILY@09 IV 08/13/24 17:00 08/16/24 09:53 100 MLS/HR Enoxaparin Sodium 80 mg Q12H SC 08/14/24 12:30 08/16/24 00:55 80 MG Amino Acids 0 ml @ 0 mls/hr PER PHARMACY IV 08/15/24 12:15 Diagnostic Test (Pha) 1 strip Q6HR 08/15/24 18:00 08/16/24 06:00 1 STRIP Insulin Human Regular FOLLOW SLIDING SCALE Q6HR SC 08/15/24 18:00 Dextrose 50 ml UD IV 08/15/24 13:00 08/15/24 17:32 50 ML Amino Acids 1,000 ml @ 41 mls/hr DAILY@1400 IV 08/15/24 14:00 08/15/24 13:42 41 MLS/HR Sodium Chloride 1,000 ml @ 100 mls/hr Q10H IV 08/15/24 13:30 08/16/24 07:44 100 MLS/HR Examination: LUNGS:Normal, CVS:Normal, MSK:Normal laboratory and microbiology Laboratory Tests 08/16/24 03:30 Test 08/16/24 03:30 Range/Units Serum Glucose 128 H 74-106 mg/dL Microbiology Date/Time Source Procedure Growth Status 08/13/24 11:10 Nose MRSA Screen - Final Complete 08/12/24 19:02 Bronchial Washings Gram Stain - Final Resulted 08/12/24 19:02 Respiratory Culture - Preliminary Klebsiella pneumoniae Presumptive Ema albicans Resulted 08/10/24 14:08 Blood Blood Culture - Final NO GROWTH AFTER 5 DAYS OF INCUBATION. Complete Problem List/Assessment/Plan Problem List/Assessment/Plan Acute kidney injury secondary hemodynamic mediated Acute respiratory failure patient intubated on ventilator Hypernatremia due to dehydration Rhabdomyolysis Jaundice Transaminitis Hypoalbuminemia Recommendations Kidney function resolved back to normal Powell catheter Strict I&Os IVF D5W 100 cc/hour IV pressor for blood pressure support Rule out liver cirrhosis Albumin 25% IV piggyback kidney ultrasound reported WNL I will sign off this case, please reconsult as needed Thank you for the consult Plan discussed with: Patient My Orders My Orders Orders - KAMILA LEMA MD Procedure Category Date Status Time Sod Chl 0.45% (Sodium PHA 08/15/24 In Process Chloride 0.45% Via 13:30 Dietary Evaluation Review Comments: 1. If on Vent Consider Nepro 30ml/hr x 24 hr,( 58g pro 1274 kcal). this will support pt's needs at 100% protein, 94 % kcal. 2. If EN not possible, and NPO > 7 days, consider TPN per pharmacy. 3. If off Vent, and pass speech eval, offer Renal Specific -50g protein 2g Na 3 K Low phos, 4. If off vent on hemo dialysis, pass speech eval, offer Renal Standard 2 gNa 3 K, Low Phos diet. Expected Outcomes/Goals: advance to diet able to eat independently. KAMILA LEMA MD Aug 16, 2024 10:49
--- NOTE | 2024-08-16 11:49 | DVH ---
INDICATION: High LFTs TECHNIQUE: Multiple real-time sonographic images were obtained of the right upper quadrant. COMPARISON: None FINDINGS: The liver demonstrates homogenous echotexture without focal mass lesions. The liver measure s 17 cm. There is no intrahepatic or extrahepatic ductal dilatation. The common duct measures 4 mm . Gallbladder sludge and gallstone measuring up to 0.5 cm. The gallbladder wall measures 3 mm and is within normal limits. The right kidney measures 10 cm. The right kidney is normal in contour, size, and shape. The echog enicity is normal. There is no hydronephrosis. The pancreas is not well visualized due to overlying bowel gas. IMPRESSION: Gallbladder sludge and gallstones. No sonographic evidence of acute cholecystitis.
[2024-08-16] MEDS ORDERED: TPN PER PHARMACY 0 ML IV SCH (12:45)
[2024-08-16] MEDS: DEXTROSE 10% 1,000 ML IV SCH (14:49)
[2024-08-16] MEDS: POTASSIUM PHOSPHATE 26.4 MEQ in SODIUM CHL 0.9% 100 ML IV ONE (15:07)
[2024-08-16] MEDS: InsuLIN REG 1unit/0.01ml Soln (100units/ml) SC SCH (21:00)
[2024-08-16] MEDS: ACCU-CHEK COMFORT CURVE STRIP VI SCH (21:06)
--- NOTE | 2024-08-16 23:03 | DVHPN2 ---
Progress Note - Dictate Date Seen: Aug 16, 2024 Medical Necessity Reason Pt with a Central, PICC or Fol: Yes The following are medically ne: Powell Catheter Reason for powell catheter: Strict I&O Subjective Patient seen and examined at bedside. S/p extubation, on room air. Overnight events reviewed. vital signs Vital Sign Date Time Temp Pulse Resp B/P (MAP) Pulse Ox O2 Delivery O2 Flow Rate FiO2 08/16/24 22:00 28 100 Room Air* 0 21 08/16/24 22:00 81 08/16/24 21:15 99.3 95/50 (65) 210.7 Total Intake and Output 08/15/24 08/15/24 08/16/24 15:00 23:00 07:00 Intake Total 315.625 ml 815.000 ml 855.055 ml Output Total 1300 ml 1350 ml Balance 315.625 ml -485.000 ml -494.945 ml medications Current Medications Medications Dose Ordered Sig/Akiko Route Start Time Stop Time Status Last Admin Dose Admin Vancomycin HCl 200 ml @ 200 mls/hr Q12HR IV 08/10/24 22:00 UNV Pantoprazole Sodium 40 mg DAILY IV 08/11/24 10:00 08/16/24 09:52 40 MG Acetaminophen 650 mg Q6HP PRN SD 08/10/24 23:30 08/11/24 01:13 650 MG Norepinephrine Bitartrate 16 mg/ Sodium Chloride 250 ml @ 1.875 mls/ hr Q24H IV 08/11/24 18:30 08/16/24 01:00 1.875 MLS/HR Enteral Nutritional Formula 240 ml 50ML/HR GT 08/12/24 12:00 Acetaminophen 650 mg Q6HP PRN PO 08/13/24 11:45 Ceftriaxone Sodium 50 ml @ 100 mls/hr DAILY@09 IV 08/13/24 17:00 08/16/24 09:53 100 MLS/HR Enoxaparin Sodium 80 mg Q12H SC 08/14/24 12:30 08/16/24 12:02 80 MG Amino Acids 0 ml @ 0 mls/hr PER PHARMACY IV 08/15/24 12:15 Dextrose 50 ml UD IV 08/15/24 13:00 08/16/24 11:59 50 ML Amino Acids 1,000 ml @ 41 mls/hr DAILY@1400 IV 08/15/24 14:00 08/17/24 21:59 08/16/24 14:45 41 MLS/HR Amino Acids 0 ml @ 0 mls/hr PER PHARMACY IV 08/16/24 12:45 Dextrose 1,000 ml @ 50 mls/hr Q20H IV 08/16/24 12:45 08/16/24 14:49 50 MLS/HR Diagnostic Test (Pha) 1 strip Q4HR 08/16/24 21:00 08/16/24 22:27 1 STRIP Insulin Human Regular FOLLOW SLIDING SCALE Q4HR SC 08/16/24 21:00 objective Gen.: Patient lying in bed in no apparent distress. Breathing on room air. Head: Normocephalic, atraumatic. Eyes: EOMI/PERRLA. Ears: Normal hearing. Normal anatomy. Neck/trachea: Trachea midline, supple. Nose: Normal external anatomy. Mouth: Moist mucous membranes. Chest: Decreased air entry bilaterally. No wheezing or rhonchi. Cardiovascular: Positive S1, positive S2. Regular rate and rhythm. Abdomen: Positive bowel sounds in all 4 quadrants. Soft, non-tender, non- distended. : Deferred. Rectal: Deferred. Skin: Warm, dry. Intact. Extremities: 2+ radial pulses bilaterally. No lower extremity edema. Neuro: Awake, alert, oriented x3. No gross motor or sensory deficits. Cranial nerves II through XII intact. Gait not assessed. laboratory and microbiology Laboratory Tests 08/16/24 03:30 Test 08/16/24 03:30 Range/Units Serum Glucose 128 H 74-106 mg/dL Assessment/Plan Impression: Acute hypoxic respiratory failure On mechanical ventilator Leukocytosis Hypernatremia Parkinson's disease Acute metabolic encephalopathy Decubitus ulcers Sepsis Rhabdomyolysis Acute kidney injury Events: S/p extubation yesterday Breathing on room air. No respiratory distress. Off sedation Off Levophed since this AM, hemodynamically stable. Started Clinimix yesterday for nutritional support Accu-Cheks d/t hypoglycemic episodes Plan TPN in the AM. Swallow evaluation Monitor renal function. Monitor electrolytes. Supplement as necessary. Supplement phos 08/12/24 - S/p therapeutic bronchoscopy w/ RML BAL - Mucous plugging from L6-L10 and R1-R10. See separate procedure note for details. Labs and imaging reviewed. Rest of plan as noted below. Plan: S/p extubation 08/15/24 Breathing on room air. Supplemental O2 PRN. CT head: No acute intracranial hemorrhage or stroke. Off sedation Pressors if necessary for hemodynamic support. Titrate to keep MAP above 65 mmHg/SBP above 90 mmHg. Antibiotics. F/u cultures. Monitor renal function due to Acute kidney injury. Monitor electrolytes. Supplement as necessary. Monitor sodium due to hypernatremia, sodium 168 on 08/10 IV fluid hydration Do not over correct sodium. Nutritional support. Accu-Cheks, ISS. GI prophylaxis - Protonix DVT prophylaxis. Condition: Critical Prognosis: Poor given multiple comorbidities. Rest of plan per hospitalist and other consultants. A total of 35 minutes of critical care time was spent reviewing the patient record, examining the patient, making a diagnostic and therapeutic plan, discussing this plan with the medical personnel, following up on diagnostic studies and following the patient for clinical stability excluding any and all procedures. At least 50% of this time was spent in direct, [id number] contact. Thank you Dr. Newman for allowing me to participate in this patient's care. Further recommendations will depend on patient's clinical course. Please do not hesitate to contact me if you have any questions or concerns. This medical document was created using an electronic medical record system with [employer] dictation system. Although this document has been carefully reviewed, there may still be some phonetic and typographical errors. These areas are purely typographical due to imperfections of the software programs, and do not reflect any compromise in the patient's medical care. Dietary Evaluation Review Comments: 1. If on Vent Consider Nepro 30ml/hr x 24 hr,( 58g pro 1274 kcal). this will support pt's needs at 100% protein, 94 % kcal. 2. If EN not possible, and NPO > 7 days, consider TPN per pharmacy. 3. If off Vent, and pass speech eval, offer Renal Specific -50g protein 2g Na 3 K Low phos, 4. If off vent on hemo dialysis, pass speech eval, offer Renal Standard 2 gNa 3 K, Low Phos diet. Expected Outcomes/Goals: advance to diet able to eat independently. Plan discussed with: Other (SRAVANI Berkowitz) Critical Care Time(min): 35 REY REAGAN MD Aug 16, 2024 23:03
[2024-08-17] VITALS (97 sets, daily range): BP systolic 77–142; BP diastolic 43–80; PULSE 80–98; RESP 12–31; TEMP 98.4–99.5; O2SAT 98–100
[2024-08-17] MEDS: KETOROLAC TROMETH 30 MG/ML 1ML VIAL ONE (03:28)
[2024-08-17 03:39] LABS: Albumin 3.2 g/dL (3.2-4.8); Anion Gap 9 (5-15); BUN/Creatinine Ratio 43.3 (10.0-20.0); Calcium 9.3 mg/dL (8.7-10.4); Carbon Dioxide 25 mmol/L (20-31); Magnesium 2.2 mg/dL (1.6-2.6); Potassium 3.9 mmol/L (3.5-5.1)
[2024-08-17 03:40] LABS: Total Protein 6.2 g/dL (5.7-8.2)
[2024-08-17 03:43] LABS: Alanine Aminotransferase 230 U/L (7-40); Alkaline Phosphatase 180 U/L (46-116); Aspartate Aminotransferase 243 U/L (13-40); Bilirubin, Total 2.4 mg/dL (0.2-1.0); Blood Urea Nitrogen 45 mg/dL (9-23); Chloride 119 mmol/L (98-107); Glucose 199 mg/dL (74-106); Phosphorus 2.4 mg/dL (2.4-5.1); Sodium 153 mmol/L (136-145)
[2024-08-17] MEDS: KETOROLAC TROMETH 30 MG/ML 1ML VIAL IV ONE (05:27)
[2024-08-17 10:31] LABS: Basophils # (auto) 0 10 ^3/uL (0-0.2); Basophils % (auto) 0.3 % (0.0-2.0); Eosinophils # (auto) 0.1 10 ^3/uL (0-0.8); Eosinophils % (auto) 0.7 % (0.0-7.0); Hematocrit 37.6 % (41.0-53.0); Hemoglobin 12.6 g/dL (13.5-17.5); Lymphocytes # (auto) 0.5 10 ^3/uL (0.4-5.4); Lymphocytes % (auto) 5.9 % (10.0-50.0); Mean Corpuscular Hemoglobin 29.9 pg (28.0-32.0); Mean Corpuscular Hgb Conc. 33.4 g/dL (32.0-36.0); Mean Corpuscular Volume 89.4 fL (80.0-100.0); Monocytes # (auto) 0.3 10 ^3/uL (0-1.3); Monocytes % (auto) 3.4 % (0.0-12.0); Neutrophils # (auto) 7.2 10 ^3/uL (1.6-8.6); Neutrophils % (auto) 89.7 % (37.0-80.0); Nucleated Red Blood Cells % 0.4 %; Platelet Count (auto) 153 10^3/uL (140-450); Red Blood Cells 4.21 10^6/uL (4.5-5.90); Red Cell Distribution Width 13.5 % (11.8-14.3)
--- NOTE | 2024-08-17 10:58 | DVHPN2 ---
Subjective Patient encephalopathic Reviewed: Care Plan, H&P, Medications Changes from previous H/P or p: No Changes General: Per HPI Objective Vitals Vital Signs Date Time Temp Pulse Resp B/P (MAP) Pulse Ox O2 Delivery O2 Flow Rate FiO2 08/17/24 06:45 98.4 88 25 90/51 (64) 100 98.4 08/17/24 06:00 Room Air* 0 21 Intake/Output Intake and Output 08/17/24 07:00 Intake Total 3135.668 ml Output Total 2000 ml Balance 1135.668 ml Intake Oral 800 ml IV Total 2335.668 ml Output Urine Total 2000 ml General Appearance: Alert, Other (Encephalopathic) HEENT: PERRLA Lungs: Clear to auscultation Cardiovascular: Regular rate, Normal S1, Normal S2 Abdomen: Normal bowel sounds, Soft, No tenderness Extremities: No edema Skin: Wounds (See nurse notes and pictures) Psych/Mental Status: Other (Altered mental status) Medications Current Medications Medications Dose Ordered Sig/Akiko Route Start Time Stop Time Status Last Admin Dose Admin Vancomycin HCl 200 ml @ 200 mls/hr Q12HR IV 08/10/24 22:00 UNV Pantoprazole Sodium 40 mg DAILY IV 08/11/24 10:00 08/17/24 09:15 40 MG Acetaminophen 650 mg Q6HP PRN CA 08/10/24 23:30 08/11/24 01:13 650 MG Norepinephrine Bitartrate 16 mg/ Sodium Chloride 250 ml @ 1.875 mls/ hr Q24H IV 08/11/24 18:30 08/16/24 01:00 1.875 MLS/HR Enteral Nutritional Formula 240 ml 50ML/HR GT 08/12/24 12:00 Acetaminophen 650 mg Q6HP PRN PO 08/13/24 11:45 Ceftriaxone Sodium 50 ml @ 100 mls/hr DAILY@09 IV 08/13/24 17:00 08/17/24 09:15 100 MLS/HR Enoxaparin Sodium 80 mg Q12H SC 08/14/24 12:30 08/17/24 01:27 80 MG Amino Acids 0 ml @ 0 mls/hr PER PHARMACY IV 08/15/24 12:15 Dextrose 50 ml UD IV 08/15/24 13:00 08/17/24 01:35 50 ML Amino Acids 1,000 ml @ 41 mls/hr DAILY@1400 IV 08/15/24 14:00 08/17/24 21:59 08/16/24 14:45 41 MLS/HR Amino Acids 0 ml @ 0 mls/hr PER PHARMACY IV 08/16/24 12:45 Dextrose 1,000 ml @ 50 mls/hr Q20H IV 08/16/24 12:45 08/17/24 09:33 50 MLS/HR Diagnostic Test (Pha) 1 strip Q4HR 08/16/24 21:00 08/17/24 09:38 1 STRIP Insulin Human Regular FOLLOW SLIDING SCALE Q4HR SC 08/16/24 21:00 Laboratory Results Laboratory Tests 08/17/24 03:00 Chemistry Test 08/17/24 03:00 Albumin 3.2 g/dL (3.2-4.8) Calcium Level 9.3 mg/dL (8.7-10.4) Magnesium Level 2.2 mg/dL (1.6-2.6) Phosphorus Level 2.4 mg/dL (2.4-5.1) Total Protein 6.2 g/dL (5.7-8.2) LFT Test 08/17/24 03:00 Alanine Aminotransferase (ALT) 230 U/L (7-40) H Alkaline Phosphatase 180 U/L (46-116) H Aspartate Amino Transferase (AST) 243 U/L (13-40) H Total Bilirubin 2.4 mg/dL (0.2-1.0) H Urinalysis Test 08/11/24 13:02 Urine Color Yellow (Yellow) Urine Clarity Turbid (Clear) H Urine pH 5.5 (5.0-9.0) Urine Specific [place] 1.018 (1.001-1.035) Urine Protein 1+ (Negative) H Urine Ketones Negative (Negative) Urine Blood 3+ /uL (Negative) H Urine Nitrite Negative (Negative) Urine Bilirubin Negative (Negative) Urine Urobilinogen 4 mg/dL (Negative) H Urine Leukocyte Esterase 1+ /uL (Negative) Urine RBC 13 /hpf (0 - 3) Urine WBC 14 /hpf (0 - 3) Urine Squamous Epithelial Cells Few /hpf (<5) Urine Bacteria Few /hpf (None Seen) H Urine Hyaline Casts Few /lpf (0 - 2) Urine Granular Casts Few /lpf (0) Urine Mucus Few (None Seen) Urine Creatinine 67.44 mg/dL (30.0-125.0) Urine Protein/Creatinine Ratio 1.00 Urine Sodium 32 mmol/L (40-220) L Urine Glucose Normal mg/dL (Normal) Urine Total Protein 67.3 mg/dL (1-14) H Microbiology Microbiology Date/Time Source Procedure Growth Status 08/13/24 11:10 Nose MRSA Screen - Final Complete 08/12/24 19:02 Bronchial Washings Gram Stain - Final Resulted 08/12/24 19:02 Respiratory Culture - Preliminary Klebsiella pneumoniae Presumptive Ema albicans Resulted 08/10/24 14:08 Blood Blood Culture - Final NO GROWTH AFTER 5 DAYS OF INCUBATION. Complete Labs and/or images reviewed: Labs reviewed by me, Image(s) reviewed by me Assessment/Plan Assessment/Plan Impression: -severe sepsis with shock -metabolic encephalopathy -acute hypoxic respiratory failure on mechanical ventilation, extubated -sacral decubitus ulcer -labile blood sugar with hypoglycemia -Parkinson's disease -deconditioning -rhabdomyolysis -mild protein malnutrition -hyponatremia Plan: -vasopressor therapy has been weaned off -patient continues to be on D10 infusion with persistent hypoglycemia. Increase rate to 80 mL/hr. -advance Clinimix and TPN -patient has swallow evaluation with pureed diet. Continues to have poor oral intake -continue current antibiotic therapy -wound care consultation -strict aspiration precaution -repeat labs in a.m. -keep patient in ICU given persistent hypoglycemia Critical care time spent with patient discussing and formulating plan of care: 40 minutes. This does not include time spent performing procedures. This medical document was created using an electronic medical record system with [employer] dictation system. Although this document has been carefully reviewed, there may still be some phonetic and typographical errors. These areas are purely typographical due to imperfections of the software programs, and do not reflect any compromise in the patient's medical care. Plan discussed with: Patient, Other (RN) My Orders Orders - BECK ONEAL NP Procedure Category Date Status Time Dextrose 10% D10 PHA 08/17/24 Transmitted 11:00 Morphine Sulfate PHA 08/17/24 Transmitted Injection 11:00 Complete Blood Count LAB 08/18/24 Verified 04:00 Comprehensive LAB 08/18/24 Verified Metabolic Panel 04:00 Date of Service: Aug 17, 2024 Billing Provider: BECK ONEAL NP Common Visit Codes: [id number] CARE 30-74 MIN BECK ONEAL NP Aug 17, 2024 10:58
[2024-08-17] MEDS: DEXTROSE 10% 1,000 ML IV SCH (11:00)
[2024-08-17] MEDS: MORPHINE SULFATE INJ 2 MG/ml SYRG IV PRN (12:03)
[2024-08-17] MEDS: TPN PER PHARMACY IV NR (21:57)
--- NOTE | 2024-08-17 23:26 | DVHPN2 ---
Progress Note - Dictate Date Seen: Aug 17, 2024 Medical Necessity Reason Pt with a Central, PICC or Fol: Yes The following are medically ne: Powell Catheter Reason for powell catheter: Strict I&O Subjective Patient seen and examined at bedside. Breathing on room air. Overnight events reviewed. vital signs Vital Sign Date Time Temp Pulse Resp B/P (MAP) Pulse Ox O2 Delivery O2 Flow Rate FiO2 08/17/24 22:00 19 100 Room Air* 0 21 08/17/24 22:00 82 08/17/24 19:00 99.5 100/55 (70) 211.1 Total Intake and Output 08/16/24 08/16/24 08/17/24 15:00 23:00 07:00 Intake Total 1300 ml 1198.668 ml 637 ml Output Total 950 ml 350 ml 700 ml Balance 350 ml 848.668 ml -63 ml medications Current Medications Medications Dose Ordered Sig/Akiko Route Start Time Stop Time Status Last Admin Dose Admin Vancomycin HCl 200 ml @ 200 mls/hr Q12HR IV 08/10/24 22:00 UNV Pantoprazole Sodium 40 mg DAILY IV 08/11/24 10:00 08/17/24 09:15 40 MG Acetaminophen 650 mg Q6HP PRN MD 08/10/24 23:30 08/11/24 01:13 650 MG Norepinephrine Bitartrate 16 mg/ Sodium Chloride 250 ml @ 1.875 mls/ hr Q24H IV 08/11/24 18:30 08/16/24 01:00 1.875 MLS/HR Enteral Nutritional Formula 240 ml 50ML/HR GT 08/12/24 12:00 Acetaminophen 650 mg Q6HP PRN PO 08/13/24 11:45 Ceftriaxone Sodium 50 ml @ 100 mls/hr DAILY@09 IV 08/13/24 17:00 08/17/24 09:15 100 MLS/HR Enoxaparin Sodium 80 mg Q12H SC 08/14/24 12:30 08/17/24 13:26 80 MG Dextrose 50 ml UD IV 08/15/24 13:00 08/17/24 21:55 50 ML Amino Acids 0 ml @ 0 mls/hr PER PHARMACY IV 08/16/24 12:45 Diagnostic Test (Pha) 1 strip Q4HR 08/16/24 21:00 08/17/24 21:49 1 STRIP Insulin Human Regular FOLLOW SLIDING SCALE Q4HR SC 08/16/24 21:00 Dextrose 1,000 ml @ 80 mls/hr [id number] IV 08/17/24 11:00 08/17/24 11:00 80 MLS/HR Morphine Sulfate 1 mg Q3HP PRN IV 08/17/24 11:00 08/17/24 18:34 1 MG Fat Emulsion Intravenous 50 ml/ Potassium Acetate 20 meq/Potassium Phosphate 22 meq/ Magnesium Sulfate 4 meq/ Multivitamins 10 ml/Chromium/ Copper/Manganese/ Zinc 1 ml/Amino Acids/Dextrose/ Purified Water 1,327 ml @ 55 mls/hr Q24H8M IV 08/17/24 22:00 08/18/24 21:59 08/17/24 21:57 55 MLS/HR objective Gen.: Patient lying in bed in no apparent distress. Breathing on room air. Head: Normocephalic, atraumatic. Eyes: EOMI/PERRLA. Ears: Normal hearing. Normal anatomy. Neck/trachea: Trachea midline, supple. Nose: Normal external anatomy. Mouth: Moist mucous membranes. Chest: Decreased air entry bilaterally. No wheezing or rhonchi. Cardiovascular: Positive S1, positive S2. Regular rate and rhythm. Abdomen: Positive bowel sounds in all 4 quadrants. Soft, non-tender, non- distended. : Deferred. Rectal: Deferred. Skin: Warm, dry. Intact. Extremities: 2+ radial pulses bilaterally. No lower extremity edema. Neuro: Awake, alert, oriented x3. No gross motor or sensory deficits. Cranial nerves II through XII intact. Gait not assessed. laboratory and microbiology Laboratory Tests 08/17/24 03:00 Test 08/17/24 03:00 Range/Units Serum Glucose 199 H 74-106 mg/dL Assessment/Plan Impression: Acute hypoxic respiratory failure Leukocytosis Hypernatremia Parkinson's disease Acute metabolic encephalopathy Decubitus ulcers Sepsis Rhabdomyolysis Acute kidney injury Events: Remains on room air. No respiratory distress. D10W - Monitor for hypoglycemia Clinimix for nutritional support Accu-Cheks for glycemic monitoring Starting TPN. Continue antibiotics Monitor renal function. Monitor electrolytes. Supplement as necessary. Hypernatremia, Na 153 - monitor. Head of bed elevation Aspiration precautions 08/12/24 - S/p therapeutic bronchoscopy w/ RML BAL - Mucous plugging from L6-L10 and R1-R10. See separate procedure note for details. Labs and imaging reviewed. Rest of plan as noted below. Plan: S/p extubation 08/15/24 Breathing on room air. Supplemental O2 PRN. CT head: No acute intracranial hemorrhage or stroke. Off sedation Pressors if necessary for hemodynamic support. Titrate to keep MAP above 65 mmHg/SBP above 90 mmHg. Antibiotics. F/u cultures. Monitor renal function due to Acute kidney injury. Monitor electrolytes. Supplement as necessary. Monitor sodium due to hypernatremia, sodium 168 on 08/10 IV fluid hydration Do not over correct sodium. Nutritional support. Accu-Cheks, ISS. GI prophylaxis - Protonix DVT prophylaxis. Condition: Critical Prognosis: Poor given multiple comorbidities. Rest of plan per hospitalist and other consultants. A total of 35 minutes of critical care time was spent reviewing the patient record, examining the patient, making a diagnostic and therapeutic plan, discussing this plan with the medical personnel, following up on diagnostic studies and following the patient for clinical stability excluding any and all procedures. At least 50% of this time was spent in direct, bzuj-me-bouz contact. Thank you Dr. Newman for allowing me to participate in this patient's care. Further recommendations will depend on patient's clinical course. Please do not hesitate to contact me if you have any questions or concerns. This medical document was created using an electronic medical record system with [employer] dictation system. Although this document has been carefully reviewed, there may still be some phonetic and typographical errors. These areas are purely typographical due to imperfections of the software programs, and do not reflect any compromise in the patient's medical care. Dietary Evaluation Review Comments: 1. If on Vent Consider Nepro 30ml/hr x 24 hr,( 58g pro 1274 kcal). this will support pt's needs at 100% protein, 94 % kcal. 2. If EN not possible, and NPO > 7 days, consider TPN per pharmacy. 3. If off Vent, and pass speech eval, offer Renal Specific -50g protein 2g Na 3 K Low phos, 4. If off vent on hemo dialysis, pass speech eval, offer Renal Standard 2 gNa 3 K, Low Phos diet. Expected Outcomes/Goals: advance to diet able to eat independently. Plan discussed with: Other (SRAVANI Berkowitz) Critical Care Time(min): 35 REY REAGAN MD Aug 17, 2024 23:26
[2024-08-18] VITALS (63 sets, daily range): BP systolic 79–127; BP diastolic 44–62; PULSE 79–107; RESP 10–27; TEMP 99–99.5; O2SAT 100
[2024-08-18] MEDS: DEXTROSE 10% 1,000 ML IV ONE (02:31)
[2024-08-18] MEDS ORDERED: DEXTROSE (50%) 50ML SYRG IV SCH (02:45)
[2024-08-18] MEDS: ACCU-CHEK COMFORT CURVE STRIP VI SCH (02:45)
[2024-08-18] MEDS: InsuLIN REG 1unit/0.01ml Soln (100units/ml) SC SCH (02:45)
[2024-08-18] MEDS: DEXTROSE 10% 1,000 ML IV SCH (02:50)
[2024-08-18 03:50] LABS: Basophils # (auto) 0 10 ^3/uL (0-0.2); Basophils % (auto) 0.3 % (0.0-2.0); Eosinophils # (auto) 0.1 10 ^3/uL (0-0.8); Hematocrit 34.3 % (41.0-53.0); Hemoglobin 11.3 g/dL (13.5-17.5); Lymphocytes # (auto) 0.6 10 ^3/uL (0.4-5.4); Lymphocytes % (auto) 9.7 % (10.0-50.0); Mean Corpuscular Hemoglobin 29.6 pg (28.0-32.0); Mean Corpuscular Hgb Conc. 33.1 g/dL (32.0-36.0); Mean Corpuscular Volume 89.5 fL (80.0-100.0); Monocytes # (auto) 0.3 10 ^3/uL (0-1.3); Neutrophils # (auto) 5.5 10 ^3/uL (1.6-8.6); Platelet Count (auto) 174 10^3/uL (140-450); Red Blood Cells 3.83 10^6/uL (4.5-5.90); Red Cell Distribution Width 13.4 % (11.8-14.3); White Blood Cell 6.6 10^3/uL (4.4-10.8)
[2024-08-18 04:03] LABS: Anion Gap 10 (5-15); BUN/Creatinine Ratio 45.4 (10.0-20.0); Calcium 8.7 mg/dL (8.7-10.4); Carbon Dioxide 24 mmol/L (20-31); Potassium 3.8 mmol/L (3.5-5.1)
[2024-08-18 04:04] LABS: Phosphorus 2.7 mg/dL (2.4-5.1)
[2024-08-18 04:34] LABS: Alanine Aminotransferase 214 U/L (7-40); Albumin 2.9 g/dL (3.2-4.8); Alkaline Phosphatase 168 U/L (46-116); Aspartate Aminotransferase 175 U/L (13-40); Bilirubin, Total 1.4 mg/dL (0.2-1.0); Blood Urea Nitrogen 44 mg/dL (9-23); Chloride 116 mmol/L (98-107); Glucose 240 mg/dL (74-106); Sodium 150 mmol/L (136-145); Total Protein 5.7 g/dL (5.7-8.2)
--- NOTE | 2024-08-18 09:23 | DVHPN2 ---
Subjective Patient encephalopathic Reviewed: Care Plan, H&P, Medications Changes from previous H/P or p: No Changes General: Per HPI Objective Vitals Vital Signs Date Time Temp Pulse Resp B/P (MAP) Pulse Ox O2 Delivery O2 Flow Rate FiO2 08/18/24 08:45 99.3 90 22 107/58 (74) 100 210.7 08/18/24 08:08 Room Air* 0 30 21 Intake/Output Intake and Output 08/18/24 07:00 Intake Total 1741.7 ml Output Total 1650 ml Balance 91.7 ml Intake Oral 690 ml IV Total 1051.7 ml Output Urine Total 1650 ml General Appearance: Alert, Other (Encephalopathic) HEENT: PERRLA Lungs: Clear to auscultation Cardiovascular: Regular rate, Normal S1, Normal S2 Abdomen: Normal bowel sounds, Soft, No tenderness Extremities: No edema Skin: Wounds (See nurse notes and pictures) Psych/Mental Status: Other (Altered mental status) Medications Current Medications Medications Dose Ordered Sig/Akiko Route Start Time Stop Time Status Last Admin Dose Admin Vancomycin HCl 200 ml @ 200 mls/hr Q12HR IV 08/10/24 22:00 UNV Pantoprazole Sodium 40 mg DAILY IV 08/11/24 10:00 08/17/24 09:15 40 MG Acetaminophen 650 mg Q6HP PRN AR 08/10/24 23:30 08/11/24 01:13 650 MG Norepinephrine Bitartrate 16 mg/ Sodium Chloride 250 ml @ 1.875 mls/ hr Q24H IV 08/11/24 18:30 08/16/24 01:00 1.875 MLS/HR Enteral Nutritional Formula 240 ml 50ML/HR GT 08/12/24 12:00 Acetaminophen 650 mg Q6HP PRN PO 08/13/24 11:45 Enoxaparin Sodium 80 mg Q12H SC 08/14/24 12:30 08/18/24 00:30 80 MG Amino Acids 0 ml @ 0 mls/hr PER PHARMACY IV 08/16/24 12:45 Morphine Sulfate 1 mg Q3HP PRN IV 08/17/24 11:00 08/17/24 18:34 1 MG Fat Emulsion Intravenous 50 ml/ Potassium Acetate 20 meq/Potassium Phosphate 22 meq/ Magnesium Sulfate 4 meq/ Multivitamins 10 ml/Chromium/ Copper/Manganese/ Zinc 1 ml/Amino Acids/Dextrose/ Purified Water 1,327 ml @ 55 mls/hr Q24H8M IV 08/17/24 22:00 08/18/24 21:59 08/17/24 21:57 55 MLS/HR Dextrose 50 ml UD IV 08/18/24 02:45 Diagnostic Test (Pha) 1 strip Q2HR 08/18/24 02:45 08/18/24 07:37 1 STRIP Insulin Human Regular FOLLOW SLIDING SCALE Q4HR SC 08/18/24 02:45 Piperacillin Sod/ Tazobactam Sod 100 ml @ 25 mls/hr Q8HR IV 08/18/24 14:00 UNV Laboratory Results Laboratory Tests 08/18/24 03:23 Chemistry Test 08/18/24 03:23 Albumin 2.9 g/dL (3.2-4.8) L Calcium Level 8.7 mg/dL (8.7-10.4) Magnesium Level 2.0 mg/dL (1.6-2.6) Phosphorus Level 2.7 mg/dL (2.4-5.1) Total Protein 5.7 g/dL (5.7-8.2) LFT Test 08/18/24 03:23 Alanine Aminotransferase (ALT) 214 U/L (7-40) H Alkaline Phosphatase 168 U/L (46-116) H Aspartate Amino Transferase (AST) 175 U/L (13-40) H Total Bilirubin 1.4 mg/dL (0.2-1.0) H Urinalysis Test 08/11/24 13:02 Urine Color Yellow (Yellow) Urine Clarity Turbid (Clear) H Urine pH 5.5 (5.0-9.0) Urine Specific [place] 1.018 (1.001-1.035) Urine Protein 1+ (Negative) H Urine Ketones Negative (Negative) Urine Blood 3+ /uL (Negative) H Urine Nitrite Negative (Negative) Urine Bilirubin Negative (Negative) Urine Urobilinogen 4 mg/dL (Negative) H Urine Leukocyte Esterase 1+ /uL (Negative) Urine RBC 13 /hpf (0 - 3) Urine WBC 14 /hpf (0 - 3) Urine Squamous Epithelial Cells Few /hpf (<5) Urine Bacteria Few /hpf (None Seen) H Urine Hyaline Casts Few /lpf (0 - 2) Urine Granular Casts Few /lpf (0) Urine Mucus Few (None Seen) Urine Creatinine 67.44 mg/dL (30.0-125.0) Urine Protein/Creatinine Ratio 1.00 Urine Sodium 32 mmol/L (40-220) L Urine Glucose Normal mg/dL (Normal) Urine Total Protein 67.3 mg/dL (1-14) H Microbiology Microbiology Date/Time Source Procedure Growth Status 08/13/24 11:10 Nose MRSA Screen - Final Complete 08/12/24 19:02 Bronchial Washings Gram Stain - Final Resulted 08/12/24 19:02 Respiratory Culture - Preliminary Klebsiella pneumoniae Presumptive Ema albicans Resulted 08/10/24 14:08 Blood Blood Culture - Final NO GROWTH AFTER 5 DAYS OF INCUBATION. Complete Labs and/or images reviewed: Labs reviewed by me, Image(s) reviewed by me Assessment/Plan Assessment/Plan Impression: -severe sepsis with shock -metabolic encephalopathy -acute hypoxic respiratory failure on mechanical ventilation, extubated -sacral decubitus ulcer -labile blood sugar with hypoglycemia -Parkinson's disease -deconditioning -rhabdomyolysis -mild protein malnutrition -hyponatremia Plan: Events: Patient continues to be encephalopathic. Wounds assessed on back and left hip. Surgical consultation will be placed for possible debridement. Given order of wound, we will cover for Pseudomonas. Patient also continues to have intermittent hypoglycemic episodes. -stop Rocephin, add Zosyn -vasopressor therapy has been weaned off -continue TPN -patient has swallow evaluation with pureed diet. Continues to have poor oral intake -wound care consultation -strict aspiration precaution -repeat labs in a.m. -keep patient in ICU given persistent hypoglycemia Critical care time spent with patient discussing and formulating plan of care: 40 minutes. This does not include time spent performing procedures. This medical document was created using an electronic medical record system with [employer] dictation system. Although this document has been carefully reviewed, there may still be some phonetic and typographical errors. These areas are purely typographical due to imperfections of the software programs, and do not reflect any compromise in the patient's medical care. Plan discussed with: Patient, Other (RN) My Orders Orders - BECK ONEAL NP Procedure Category Date Status Time Morphine Sulfate PHA 08/17/24 In Process Injection 11:00 Creatine Kinase LAB 08/18/24 In Process 09:00 * Surgical Consult CONS 08/18/24 Transmitted Zosyn Extended PHA 08/18/24 Transmitted Infusion 14:00 Basic Metabolic Panel LAB 08/19/24 Verified 05:00 Basic Metabolic Panel LAB 08/20/24 Verified 05:00 Basic Metabolic Panel LAB 08/21/24 Verified 05:00 Date of Service: Aug 18, 2024 Billing Provider: BECK ONEAL NP Common Visit Codes: [id number] CARE 30-74 MIN BECK ONEAL NP Aug 18, 2024 09:23
--- NOTE | 2024-08-18 10:04 | DVHINCON2 ---
Date of service: Aug 18, 2024 Allergies: Coded Allergies: UNOBTAINABLE (Unverified , 08/10/24) Home Meds Reported Medications Gabapentin (Gabapentin) 100 Mg Cap, 2 CAP PO BID for 90 Days, #360 08/11/24 Atorvastatin Calcium (Lipitor) 10 Mg Tab, 1 TAB PO DAILY for 90 Days, #90 08/11/24 Levodopa W/Carbidopa (Carbidopa/Levodopa) 1 Tab Tab, 3 TAB PO TID for 30 Days, #270 TAKE 2 TABLETS BY MOUTH 3 TIMES DAILY FOR 7 DAYS, THEN TAKE 3 TABLETS BY MOUTH 3 TIMES DAILY THEREAFTER. 08/11/24 Current Medications Current Medications Medications (Trade) Dose Ordered Sig/Akiko Route PRN Reason Start Time Stop Time Status Last Admin Dextrose 1,000 ml @ 80 mls/hr [id number] IV 08/17/24 11:00 08/18/24 03:30 DC 08/17/24 11:00 Morphine Sulfate 1 mg Q3HP PRN IV SEVERE PAIN (7-10 PAIN SCALE) 08/17/24 11:00 08/17/24 18:34 Fat Emulsion Intravenous 50 ml/ Potassium Acetate 20 meq/Potassium Phosphate 22 meq/ Magnesium Sulfate 4 meq/ Multivitamins 10 ml/Chromium/ Copper/Manganese/ Zinc 1 ml/Amino Acids/Dextrose/ Purified Water 1,327 ml @ 55 mls/hr Q24H8M IV 08/17/24 22:00 08/18/24 21:59 08/17/24 21:57 Dextrose 50 ml UD IV 08/18/24 02:45 Diagnostic Test (Pha) (Accu-Chek Comfort Curve T) 1 strip Q2HR 08/18/24 02:45 08/18/24 09:53 Insulin Human Regular (InsuLIN R) FOLLOW SLIDING SCALE Q4HR SC 08/18/24 02:45 Dextrose 1,000 ml @ 60 mls/hr [id number] IV 08/18/24 03:30 08/18/24 04:53 DC 08/18/24 02:50 Piperacillin Sod/ Tazobactam Sod 100 ml @ 25 mls/hr Q8HR IV 08/18/24 14:00 Vital Signs Vital Signs Date Time Temp Pulse Resp B/P (MAP) Pulse Ox O2 Delivery O2 Flow Rate FiO2 08/18/24 09:54 96 08/18/24 09:54 20 100 Room Air* 0 21 08/18/24 08:45 99.3 107/58 (74) 210.7 Labs/Diagnostic Data Labs Test 08/18/24 07:32 08/18/24 03:23 08/16/24 03:30 08/15/24 14:47 Range/Units POC Glucose 161 H 70-106 mg/dl White Blood Count 6.6 4.4-10.8 10^3/uL Red Blood Count 3.83 L 4.5-5.90 10^6/uL Hemoglobin 11.3 L 13.5-17.5 g/dL Hematocrit 34.3 L 41.0-53.0 % Mean Corpuscular Volume 89.5 80.0-100.0 fL Mean Corpuscular Hemoglobin 29.6 28.0-32.0 pg Mean Corpuscular Hemoglobin Concent 33.1 32.0-36.0 g/dL Red Cell Distribution Width 13.4 11.8-14.3 % Platelet Count 174 140-450 10^3/uL Mean Platelet Volume 10.0 6.9-10.8 fL Neutrophils (%) (Auto) 84.0 H 37.0-80.0 % Lymphocytes (%) (Auto) 9.7 L 10.0-50.0 % Monocytes (%) (Auto) 4.0 0.0-12.0 % Eosinophils (%) (Auto) 2.0 0.0-7.0 % Basophils (%) (Auto) 0.3 0.0-2.0 % Neutrophils # (Auto) 5.5 1.6-8.6 10 ^3/uL Lymphocytes # (Auto) 0.6 0.4-5.4 10 ^3/uL Monocytes # (Auto) 0.3 0-1.3 10 ^3/uL Eosinophils # (Auto) 0.1 0-0.8 10 ^3/uL Basophils # (Auto) 0 0-0.2 10 ^3/uL Nucleated Red Blood Cells 0.0 % Sodium Level 150 H 136-145 mmol/L Potassium Level 3.8 3.5-5.1 mmol/L Chloride Level 116 H 98-107 mmol/L Carbon Dioxide Level 24 20-31 mmol/L Anion Gap 10 5-15 Blood Urea Nitrogen 44 H 9-23 mg/dL Creatinine 0.97 0.700-1.30 mg/dL Glomerular Filtration Rate Calc 81 >90 mL/min BUN/Creatinine Ratio 45.4 H 10.0-20.0 Serum Glucose 240 H 74-106 mg/dL Calcium Level 8.7 8.7-10.4 mg/dL Phosphorus Level 2.7 2.4-5.1 mg/dL Magnesium Level 2.0 1.6-2.6 mg/dL Total Bilirubin 1.4 H 0.2-1.0 mg/dL Aspartate Amino Transferase (AST) 175 H 13-40 U/L Alanine Aminotransferase (ALT) 214 H 7-40 U/L Alkaline Phosphatase 168 H 46-116 U/L Total Protein 5.7 5.7-8.2 g/dL Albumin 2.9 L 3.2-4.8 g/dL Triglycerides Level 131 < 150 mg/dL Miscellaneous Referred Test ( Tmp Sent to [facility] Test 08/15/24 11:20 08/15/24 06:55 08/14/24 03:35 08/13/24 03:05 Range/Units Blood Gas Specimen Type Arterial Blood Gas Sample Site Right radial Blood Gas Patient Temperature 37.0 Arterial Blood Date Drawn [id number] Arterial Blood pH 7.421 7.350-7.450 Arterial Blood Partial Pressure CO2 40.5 35.0-48.0 mmHg Arterial Blood Partial Pressure O2 126.4 H 83.0-108.0 mmHg Arterial Blood HCO3 25.7 21.0-28.0 mmol/L Arterial Blood Oxygen Saturation 98.2 H 94.0-98.0 % Arterial Blood Base Excess 1.2 -2.0-3.0 mmol/L Arterial Blood Oxyhemoglobin 97.9 94.0-98.0 % Arterial Blood Carboxyhemoglobin 0.1 L 0.5-1.5 % Arterial Blood Methemoglobin 0.2 0.0-1.5 % Kirby Test Modified Blood Gas Total Hemoglobin 13.10 L 13.5-17.5 g/dL Blood Gas Modality Vent - cpap Blood Gas Spontaneous Rate 12 FiO2 % 30.0 Blood Gas Pressure Support 8 Blood Gas PEEP or CPAP 5.0 Blood Gas Set Respiration Rate 14.0 Blood Gas Tidal Volume 500.0 Platelet Estimate Decrea Large Platelets Few Prothrombin Time 13.9 H 9.3-11.8 sec Prothrombin Time INR 1.34 H 0.9-1.15 Activated Partial Thromboplast Time 30.9 24.5-34.5 SEC Random Vancomycin Level 12.6 H 5-10 ug/mL Test 08/12/24 20:55 08/12/24 15:13 08/11/24 13:02 08/11/24 03:10 Range/Units Influenza Type A Antigen Negative Negative Influenza Type B Antigen Negative Negative SARS-CoV-2 Antigen (Rapid) Negative NEGATIVE Urine Color Yellow Yellow Urine Clarity Turbid H Clear Urine pH 5.5 5.0-9.0 Urine Specific [place] 1.018 1.001-1.035 Urine Protein 1+ H Negative Urine Ketones Negative Negative Urine Blood 3+ H Negative /uL Urine Nitrite Negative Negative Urine Bilirubin Negative Negative Urine Urobilinogen 4 H Negative mg/dL Urine Leukocyte Esterase 1+ Negative /uL Urine RBC 13 0 - 3 /hpf Urine WBC 14 0 - 3 /hpf Urine Squamous Epithelial Cells Few <5 /hpf Urine Bacteria Few H None Seen /hpf Urine Hyaline Casts Few 0 - 2 /lpf Urine Granular Casts Few 0 /lpf Urine Mucus Few None Seen Urine Creatinine 67.44 30.0-125.0 mg/dL Urine Protein/Creatinine Ratio 1.00 Urine Sodium 32 L 40-220 mmol/L Urine Glucose Normal Normal mg/dL Urine Total Protein 67.3 H 1-14 mg/dL Ammonia 32 11-32 umol/L Vitamin D 25-Hydroxy 68.2 30.0-100 ng/mL Thyroid Stimulating Hormone (TSH) 4.48 0.55-4.78 uIU/mL Parathyroid Hormone (Intact) 169.0 H 18.4-80.1 pg/mL Hepatitis B Surface Antigen Negative Negative Hepatitis C Antibody Negative Negative Test 08/10/24 20:30 08/10/24 15:07 08/10/24 14:08 08/10/24 13:42 Range/Units Troponin I High Sensitivity 42 </=54 ng/L Blood Gas Critical Value Read Back Yes Blood Gas Notified Whom Dr. su staples Blood Gas Notified Time [id number] Blood Gas Notified By Senior [employer] Loan Processor don garrido Lactic Acid Level 0.7 0.4-2.0 mmol/L Urine Opiates Screen Neg NEGATIVE Urine Fentanyl Screen Neg NEGATIVE Urine Barbiturates Screen Neg NEGATIVE Urine Phencyclidine Screen Neg NEGATIVE Urine Amphetamines Screen Neg NEGATIVE Urine Benzodiazepines Screen Neg NEGATIVE Urine Cocaine Screen Neg NEGATIVE Urine Cannabinoids Screen Neg NEGATIVE Microbiology Date/Time Source Procedure Growth Status 08/13/24 11:10 Nose MRSA Screen - Final Complete 08/12/24 19:02 Bronchial Washings Gram Stain - Final Resulted 08/12/24 19:02 Respiratory Culture - Preliminary Klebsiella pneumoniae Presumptive Ema albicans Resulted 08/10/24 14:08 Blood Blood Culture - Final NO GROWTH AFTER 5 DAYS OF INCUBATION. Complete Assessment [id number] NON HEALING WOUNDS LEFT BACK AND LEFT GLUTEAL REGION CONSIDER TISSUE DEBRIDEMENT ABOVE TRINO Plan discussed with: Other IAM GRIER MD Aug 18, 2024 10:04
--- NOTE | 2024-08-18 10:26 | DVHINCON2 ---
DATE OF CONSULTATION: 08/18/2024 HISTORY OF PRESENT ILLNESS: This patient is 78 years old, unable to give adequate history. Most of the information obtained from the chart. He is 78 years old who was found at home on the floor. He has a history of parkinsonism. EMS was called, he was intubated and was admitted to the ICU. He recently has been extubated, but I was asked to see him with regards to nonhealing wounds of his left back and left gluteal region secondary to being bedridden and has pressure stasis ulcers. PAST MEDICAL HISTORY: Parkinson's disease, no history of diabetes, possibly hypertension. PAST SURGICAL HISTORY: Not available. PHYSICAL EXAMINATION: VITAL SIGNS: Afebrile, stable signs. HEENT: There is no evidence of pallor, cyanosis, or jaundice. NECK: Supple, nontender with no thyromegaly or lymphadenopathy. CHEST AND LUNGS: Clear. HEART: Within normal limits. ABDOMEN: Soft. NEUROLOGIC: Not assessed. CLINICAL IMPRESSION: Nonhealing wounds, left back and left gluteal region. PLAN: Will be to consider tissue debridement, left upper back and left gluteal region. Benefits have been discussed. Consent obtained. Family at the bedside. Nurse at the bedside. MD STEVEN Peterson/YESSENIA TID: [id number] RECEIPT: [id number] cc: Satinder Newman MD
--- NOTE | 2024-08-18 12:33 | DVHOP2 ---
Operative Report [id number] DICTATED NON HEALING WOUNDS LEFT GLUTEAL,LEFT MIDBACK AND LEFT UPPER BACK TISSUE NECROSIS TISSUE DEBRIDEMENT IN ABOVE THREE LOCATIONS WITH IV SEDATION DRESSING DONE EBL 20 CC NO DRAINS NO COMPLICATIONS PROCEDURE DONE AT BEDSIDE NURSE AT BEDSIDE IAM GRIER MD Aug 18, 2024 12:33
--- NOTE | 2024-08-18 12:38 | DVHOP ---
DATE OF SURGERY: 08/18/2024 PREOPERATIVE DIAGNOSIS: Nonhealing wounds left mid back, left upper back, and left gluteal region. POSTOPERATIVE DIAGNOSIS: Nonhealing wounds left mid back, left upper back, and left gluteal region. PROCEDURE: Tissue excision of the necrotic tissue of the nonhealing wounds in the above three locations. SURGEON: Ziyad German MD DATA CENTER ARCHITECT: None. ANESTHESIA: IV sedation. DESCRIPTION OF PROCEDURE: The patient was prepped and draped in the usual sterile fashion in the lateral position at the bedside and with assistance from the nursing staff. The gluteal one was done first. The necrotic tissue was removed using sharp dissection and completely removing the tissue and then replacing it with a dressing following hemostasis. Attention was then directed towards the mid left back. The same thing was done with sharp incision. The tissue was removed and the remainder of the wound was then sealed off with a dressing in place after hemostasis was secured and then the third one to be removed was the left upper back. This also was done using sharp dissection and the tissue completely removed. The area was secured for hemostasis and a dressing applied as mentioned above and the patient tolerated procedure well with no complications. MD STEVEN Peterson/CARLEEN TID: [id number] RECEIPT: [id number] cc: Satinder Newman MD
[2024-08-18] MEDS: PIPERACILLIN-TAZOB 3.375GM 100 ML IV SCH (14:06)
--- NOTE | 2024-08-18 20:23 | DVHPN2 ---
Progress Note - Dictate Date Seen: Aug 18, 2024 Medical Necessity Reason Pt with a Central, PICC or Fol: Yes The following are medically ne: Powell Catheter Reason for powell catheter: Strict I&O Subjective Patient seen and examined at bedside. Breathing on room air. Overnight events reviewed. vital signs Vital Sign Date Time Temp Pulse Resp B/P (MAP) Pulse Ox O2 Delivery O2 Flow Rate FiO2 08/18/24 17:44 91 08/18/24 17:44 20 100 Room Air* 0 21 08/18/24 12:30 100/60 08/18/24 08:45 99.3 210.7 Total Intake and Output 08/17/24 08/17/24 08/18/24 15:00 23:00 07:00 Intake Total 220 ml 1011.7 ml 510 ml Output Total 850 ml 800 ml Balance 220 ml 161.7 ml -290 ml medications Current Medications Medications Dose Ordered Sig/Akiko Route Start Time Stop Time Status Last Admin Dose Admin Vancomycin HCl 200 ml @ 200 mls/hr Q12HR IV 08/10/24 22:00 UNV Pantoprazole Sodium 40 mg DAILY IV 08/11/24 10:00 08/18/24 10:00 40 MG Acetaminophen 650 mg Q6HP PRN AK 08/10/24 23:30 08/11/24 01:13 650 MG Norepinephrine Bitartrate 16 mg/ Sodium Chloride 250 ml @ 1.875 mls/ hr Q24H IV 08/11/24 18:30 08/16/24 01:00 1.875 MLS/HR Enteral Nutritional Formula 240 ml 50ML/HR GT 08/12/24 12:00 Acetaminophen 650 mg Q6HP PRN PO 08/13/24 11:45 Enoxaparin Sodium 80 mg Q12H SC 08/14/24 12:30 08/18/24 00:30 80 MG Amino Acids 0 ml @ 0 mls/hr PER PHARMACY IV 08/16/24 12:45 Morphine Sulfate 1 mg Q3HP PRN IV 08/17/24 11:00 08/18/24 12:00 1 MG Fat Emulsion Intravenous 50 ml/ Potassium Acetate 20 meq/Potassium Phosphate 22 meq/ Magnesium Sulfate 4 meq/ Multivitamins 10 ml/Chromium/ Copper/Manganese/ Zinc 1 ml/Amino Acids/Dextrose/ Purified Water 1,327 ml @ 55 mls/hr Q24H8M IV 08/17/24 22:00 08/18/24 21:59 08/17/24 21:57 55 MLS/HR Dextrose 50 ml UD IV 08/18/24 02:45 Diagnostic Test (Pha) 1 strip Q2HR 08/18/24 02:45 08/18/24 20:00 1 STRIP Insulin Human Regular FOLLOW SLIDING SCALE Q4HR SC 08/18/24 02:45 Piperacillin Sod/ Tazobactam Sod 100 ml @ 25 mls/hr Q8HR IV 08/18/24 14:00 08/18/24 14:06 25 MLS/HR Fat Emulsion Intravenous 100 ml/Potassium Acetate 20 meq/ Potassium Phosphate 30 meq/ Magnesium Sulfate 8 meq/ Multivitamins 10 ml/Amino Acids/ Dextrose/Purified Water 1,428.8182 ml @ 60 mls/hr [id number] IV 08/18/24 22:00 08/19/24 21:59 objective Gen.: Patient lying in bed in no apparent distress. Breathing on room air. Head: Normocephalic, atraumatic. Eyes: EOMI/PERRLA. Ears: Normal hearing. Normal anatomy. Neck/trachea: Trachea midline, supple. Nose: Normal external anatomy. Mouth: Moist mucous membranes. Chest: Decreased air entry bilaterally. No wheezing or rhonchi. Cardiovascular: Positive S1, positive S2. Regular rate and rhythm. Abdomen: Positive bowel sounds in all 4 quadrants. Soft, non-tender, non- distended. : Deferred. Rectal: Deferred. Skin: Warm, dry. Intact. Extremities: 2+ radial pulses bilaterally. No lower extremity edema. Neuro: Awake, alert, oriented x3. No gross motor or sensory deficits. Cranial nerves II through XII intact. Gait not assessed. laboratory and microbiology Laboratory Tests 08/18/24 03:23 Test 08/18/24 03:23 Range/Units Serum Glucose 240 H 74-106 mg/dL Assessment/Plan Impression: Acute hypoxic respiratory failure Leukocytosis Hypernatremia Parkinson's disease Acute metabolic encephalopathy Decubitus ulcers Sepsis Rhabdomyolysis Acute kidney injury Events: Remains on room air. No respiratory distress. Off Levophed since AM, hemodynamically stable. D10W - Monitor for hypoglycemia Accu-Cheks for glycemic monitoring TPN for nutritional support. Clinimix Continue antibiotics Monitor renal function. Monitor electrolytes. Supplement as necessary. Monitor sodium Wound debridement Wound care Head of bed elevation Aspiration precautions 08/12/24 - S/p therapeutic bronchoscopy w/ RML BAL - Mucous plugging from L6-L10 and R1-R10. See separate procedure note for details. Labs and imaging reviewed. Rest of plan as noted below. Plan: S/p extubation 08/15/24 Breathing on room air. Supplemental O2 PRN. CT head: No acute intracranial hemorrhage or stroke. Off sedation Pressors if necessary for hemodynamic support. Titrate to keep MAP above 65 mmHg/SBP above 90 mmHg. Antibiotics. Monitor renal function due to Acute kidney injury. Monitor electrolytes. Supplement as necessary. Monitor sodium due to hypernatremia, Na 153 on 08/17/24 IV fluid hydration Do not over correct sodium. Nutritional support. Accu-Cheks, ISS. GI prophylaxis - Protonix DVT prophylaxis. Condition: Critical Prognosis: Poor given multiple comorbidities. Rest of plan per hospitalist and other consultants. A total of 35 minutes of critical care time was spent reviewing the patient record, examining the patient, making a diagnostic and therapeutic plan, discussing this plan with the medical personnel, following up on diagnostic studies and following the patient for clinical stability excluding any and all procedures. At least 50% of this time was spent in direct, [id number] contact. Thank you Dr. Newman for allowing me to participate in this patient's care. Further recommendations will depend on patient's clinical course. Please do not hesitate to contact me if you have any questions or concerns. This medical document was created using an electronic medical record system with [employer] dictation system. Although this document has been carefully reviewed, there may still be some phonetic and typographical errors. These areas are purely typographical due to imperfections of the software programs, and do not reflect any compromise in the patient's medical care. Dietary Evaluation Review Comments: 1. If on Vent Consider Nepro 30ml/hr x 24 hr,( 58g pro 1274 kcal). this will support pt's needs at 100% protein, 94 % kcal. 2. If EN not possible, and NPO > 7 days, consider TPN per pharmacy. 3. If off Vent, and pass speech eval, offer Renal Specific -50g protein 2g Na 3 K Low phos, 4. If off vent on hemo dialysis, pass speech eval, offer Renal Standard 2 gNa 3 K, Low Phos diet. Expected Outcomes/Goals: advance to diet able to eat independently. Plan discussed with: Other (SRAVANI Ng) Critical Care Time(min): 35 REY REAGAN MD Aug 18, 2024 20:23
[2024-08-18] MEDS: TPN PER PHARMACY IV NR (22:18)
[2024-08-18 23:40] LABS: Anion Gap 5 (5-15); BUN/Creatinine Ratio 44.6 (10.0-20.0); Carbon Dioxide 26 mmol/L (20-31); Potassium 3.5 mmol/L (3.5-5.1)
[2024-08-18 23:59] LABS: Alanine Aminotransferase 196 U/L (7-40); Albumin 2.7 g/dL (3.2-4.8); Alkaline Phosphatase 164 U/L (46-116); Aspartate Aminotransferase 140 U/L (13-40); Bilirubin, Total 1.3 mg/dL (0.2-1.0); Blood Urea Nitrogen 45 mg/dL (9-23); Calcium 8.5 mg/dL (8.7-10.4); Chloride 118 mmol/L (98-107); Glucose 202 mg/dL (74-106); Sodium 149 mmol/L (136-145); Total Protein 5.5 g/dL (5.7-8.2)
[2024-08-19] VITALS (94 sets, daily range): BP systolic 84–116; BP diastolic 36–59; PULSE 83–188; RESP 8–27; TEMP 98.8–100.2; O2SAT 98–100
[2024-08-19 00:16] LABS: Phosphorus 2.8 mg/dL (2.4-5.1)
--- NOTE | 2024-08-19 01:11 | BSKYNEURO ---
[facility] Note # Demographics Consult Type: General Neurology Patient Location: Inpatient First Name: Saurav Last Name: Anita Date of : 1945 Age: 78 Gender: Male Facility: [facility] Time of Initial Page (): 08/19/2024, 00:24 Time of Return Call (): 08/19/2024, 00:24 # HPI Chief Complaint: - altered mental state History: 78 yo M was found down on 08/10 for probably 7-10 days. He was intubated upon arrival. He was found to have rhabdomyolysis and septic shock. He was extubated on 08/15 and off pressor this AM. Post-extubation, he remains lethargic and disoriented. # Exam Mental Status: - confused - lethargic - disoriented to place - disoriented to time - Does not follow commands Language: Minimal speech output, mumbles intelligible words Cranial Nerves: - extra ocular movements intact - no facial droop Motor: - normal bulk - bilateral upper extremity weakness - bilateral lower extremity weakness Sensory: - normal sensation # ROS Unable to obtain ROS: - altered mentation # Data Head CT: - no bleed # Assessment Impression: - Altered Mental Status, likely toxometabolic encephalopathy, multifactorial, including infection, hypernatremia, critical illness, inpatient delirium # Plan Labs: - Ammonia - B12 - TSH Imaging: (urgency: routine): - MRI Brain without contrast Therapy/Evaluation: - PT/OT evaluation Medication: Thiamine 100 mg daily Melatonin 3 mg nightly to promote sleep-awake cycle Other: - If patient has any neurological deterioration please call me back immediately - telemetry monitoring - would not pursue stroke work-up if MRI is negative - Delirium precaution # Logistics Attestation of consult completion: The patient is located at: [facility]. Facility staff participated in the visit. I performed this telemedicine visit from my offsite office utilizing interactive 2 way audio and visual telecommunication technology. Total time spent in telemedicine encounter: I spent 23 minutes reviewing clinical data and/or imaging, obtaining history, examining the patient, communicating with the onsite care team, and in preparation of this report. # Demographics First Name: Saurav Last Name: Anita Facility: [facility] Electronically signed at 08/19/2024 01:09 () by Willi Waite MD WILLI Willingham MD Aug 19, 2024 01:11
[2024-08-19 03:58] LABS: Calcium 8.7 mg/dL (8.7-10.4); Carbon Dioxide 23 mmol/L (20-31); Magnesium 2.1 mg/dL (1.6-2.6)
[2024-08-19 03:59] LABS: Anion Gap 9 (5-15); Phosphorus 2.7 mg/dL (2.4-5.1)
[2024-08-19 04:10] LABS: Alanine Aminotransferase 196 U/L (7-40); Albumin 2.8 g/dL (3.2-4.8); Alkaline Phosphatase 165 U/L (46-116); Aspartate Aminotransferase 141 U/L (13-40); Bilirubin, Total 1.4 mg/dL (0.2-1.0); Blood Urea Nitrogen 41 mg/dL (9-23); Chloride 117 mmol/L (98-107); Glucose 203 mg/dL (74-106); Potassium 3.5 mmol/L (3.5-5.1); Sodium 149 mmol/L (136-145); Total Protein 5.6 g/dL (5.7-8.2)
--- NOTE | 2024-08-19 08:00 | DVHPN2 ---
Subjective Patient encephalopathic Reviewed: Care Plan, H&P, Medications Changes from previous H/P or p: No Changes General: Per HPI Objective Vitals Vital Signs Date Time Temp Pulse Resp B/P (MAP) Pulse Ox O2 Delivery O2 Flow Rate FiO2 08/19/24 06:45 99.3 95 11 109/53 (71) 100 210.7 08/19/24 06:00 Room Air* 0 21 Intake/Output Intake and Output 08/19/24 07:00 Intake Total 1347 ml Output Total 1675 ml Balance -328 ml Intake Oral 15 ml IV Total 1332 ml Output Urine Total 1675 ml # Bowel Movements 1 General Appearance: Alert, Other (Encephalopathic) HEENT: PERRLA Lungs: Clear to auscultation Cardiovascular: Regular rate, Normal S1, Normal S2 Abdomen: Normal bowel sounds, Soft, No tenderness Extremities: No edema Skin: Wounds (See nurse notes and pictures) Psych/Mental Status: Other (Altered mental status) Medications Current Medications Medications Dose Ordered Sig/Akiko Route Start Time Stop Time Status Last Admin Dose Admin Vancomycin HCl 200 ml @ 200 mls/hr Q12HR IV 08/10/24 22:00 UNV Pantoprazole Sodium 40 mg DAILY IV 08/11/24 10:00 08/18/24 10:00 40 MG Acetaminophen 650 mg Q6HP PRN SD 08/10/24 23:30 08/11/24 01:13 650 MG Norepinephrine Bitartrate 16 mg/ Sodium Chloride 250 ml @ 1.875 mls/ hr Q24H IV 08/11/24 18:30 08/16/24 01:00 1.875 MLS/HR Enteral Nutritional Formula 240 ml 50ML/HR GT 08/12/24 12:00 Acetaminophen 650 mg Q6HP PRN PO 08/13/24 11:45 Enoxaparin Sodium 80 mg Q12H SC 08/14/24 12:30 08/18/24 00:30 80 MG Amino Acids 0 ml @ 0 mls/hr PER PHARMACY IV 08/16/24 12:45 Morphine Sulfate 1 mg Q3HP PRN IV 08/17/24 11:00 08/19/24 02:34 1 MG Dextrose 50 ml UD IV 08/18/24 02:45 Diagnostic Test (Pha) 1 strip Q2HR 08/18/24 02:45 08/19/24 06:00 1 STRIP Insulin Human Regular FOLLOW SLIDING SCALE Q4HR SC 08/18/24 02:45 Piperacillin Sod/ Tazobactam Sod 100 ml @ 25 mls/hr Q8HR IV 08/18/24 14:00 08/19/24 06:30 25 MLS/HR Fat Emulsion Intravenous 100 ml/Potassium Acetate 20 meq/ Potassium Phosphate 30 meq/ Magnesium Sulfate 8 meq/ Multivitamins 10 ml/Amino Acids/ Dextrose/Purified Water 1,428.8182 ml @ 60 mls/hr [id number] IV 08/18/24 22:00 08/19/24 21:59 08/18/24 22:18 60 MLS/HR Laboratory Results Laboratory Tests 08/18/24 03:23 08/19/24 03:08 Chemistry Test 08/18/24 23:17 08/19/24 03:08 Albumin 2.7 g/dL (3.2-4.8) L 2.8 g/dL (3.2-4.8) L Calcium Level 8.5 mg/dL (8.7-10.4) L 8.7 mg/dL (8.7-10.4) Magnesium Level 2.0 mg/dL (1.6-2.6) 2.1 mg/dL (1.6-2.6) Phosphorus Level 2.8 mg/dL (2.4-5.1) 2.7 mg/dL (2.4-5.1) Total Protein 5.5 g/dL (5.7-8.2) L 5.6 g/dL (5.7-8.2) L LFT Test 08/18/24 23:17 08/19/24 03:08 Alanine Aminotransferase (ALT) 196 U/L (7-40) H 196 U/L (7-40) H Alkaline Phosphatase 164 U/L (46-116) H 165 U/L (46-116) H Aspartate Amino Transferase (AST) 140 U/L (13-40) H 141 U/L (13-40) H Total Bilirubin 1.3 mg/dL (0.2-1.0) H 1.4 mg/dL (0.2-1.0) H Urinalysis Test 08/11/24 13:02 Urine Color Yellow (Yellow) Urine Clarity Turbid (Clear) H Urine pH 5.5 (5.0-9.0) Urine Specific [place] 1.018 (1.001-1.035) Urine Protein 1+ (Negative) H Urine Ketones Negative (Negative) Urine Blood 3+ /uL (Negative) H Urine Nitrite Negative (Negative) Urine Bilirubin Negative (Negative) Urine Urobilinogen 4 mg/dL (Negative) H Urine Leukocyte Esterase 1+ /uL (Negative) Urine RBC 13 /hpf (0 - 3) Urine WBC 14 /hpf (0 - 3) Urine Squamous Epithelial Cells Few /hpf (<5) Urine Bacteria Few /hpf (None Seen) H Urine Hyaline Casts Few /lpf (0 - 2) Urine Granular Casts Few /lpf (0) Urine Mucus Few (None Seen) Urine Creatinine 67.44 mg/dL (30.0-125.0) Urine Protein/Creatinine Ratio 1.00 Urine Sodium 32 mmol/L (40-220) L Urine Glucose Normal mg/dL (Normal) Urine Total Protein 67.3 mg/dL (1-14) H Microbiology Microbiology Date/Time Source Procedure Growth Status 08/13/24 11:10 Nose MRSA Screen - Final Complete 08/12/24 19:02 Bronchial Washings Gram Stain - Final Resulted 08/12/24 19:02 Respiratory Culture - Preliminary Klebsiella pneumoniae Presumptive Ema albicans Resulted 08/10/24 14:08 Blood Blood Culture - Final NO GROWTH AFTER 5 DAYS OF INCUBATION. Complete Labs and/or images reviewed: Labs reviewed by me, Image(s) reviewed by me Assessment/Plan Assessment/Plan Impression: -severe sepsis with shock -metabolic encephalopathy -acute hypoxic respiratory failure on mechanical ventilation, extubated -sacral decubitus ulcer -labile blood sugar with hypoglycemia -Parkinson's disease -deconditioning -rhabdomyolysis -mild protein malnutrition -hyponatremia Plan: Events: Patient had debridement of left hip, lower back, upper back wounds. CPK trending down. Patient continues to be encephalopathic. Neurology consultation was placed. Pending MRI. Hypoglycemia improving -continue Zosyn -poor oral intake. Start LR at 50 mL/hour with TPN -continue TPN -patient has swallow evaluation with pureed diet. Continues to have poor oral intake -wound care consultation -strict aspiration precaution -repeat labs in a.m. Critical care time spent with patient discussing and formulating plan of care: 40 minutes. This does not include time spent performing procedures. This medical document was created using an electronic medical record system with [email or web address] dictation system. Although this document has been carefully reviewed, there may still be some phonetic and typographical errors. These areas are purely typographical due to imperfections of the software programs, and do not reflect any compromise in the patient's medical care. Plan discussed with: Patient, Other (RN) My Orders Orders - BECK ONEAL NP Procedure Category Date Status Time Piperacillin-Tazob PHA 08/18/24 In Process 3.375gm (Zosyn 3.375g 14:00 Basic Metabolic Panel LAB 08/20/24 Verified 05:00 Basic Metabolic Panel LAB 08/21/24 Verified 05:00 * Neurology Consult CONS 08/18/24 Transmitted 09:19 * Surgical Consult CONS 08/18/24 Transmitted 09:19 Complete Blood Count LAB 08/19/24 Logged 07:23 Date of Service: Aug 19, 2024 Billing Provider: BECK ONEAL NP Common Visit Codes: 31335-[id number] CARE 30-74 MIN BECK ONEAL NP Aug 19, 2024 08:00
[2024-08-19 09:05] LABS: Basophils # (auto) 0 10 ^3/uL (0-0.2); Basophils % (auto) 0.3 % (0.0-2.0); Eosinophils # (auto) 0.1 10 ^3/uL (0-0.8); Eosinophils % (auto) 1.5 % (0.0-7.0); Hemoglobin 10.5 g/dL (13.5-17.5); Lymphocytes # (auto) 0.5 10 ^3/uL (0.4-5.4); Lymphocytes % (auto) 6.9 % (10.0-50.0); Mean Corpuscular Hemoglobin 30.3 pg (28.0-32.0); Mean Corpuscular Hgb Conc. 33.8 g/dL (32.0-36.0); Mean Corpuscular Volume 89.7 fL (80.0-100.0); Monocytes # (auto) 0.2 10 ^3/uL (0-1.3); Monocytes % (auto) 3.5 % (0.0-12.0); Neutrophils # (auto) 5.8 10 ^3/uL (1.6-8.6); Neutrophils % (auto) 87.8 % (37.0-80.0); Platelet Count (auto) 178 10^3/uL (140-450); Red Blood Cells 3.46 10^6/uL (4.5-5.90); White Blood Cell 6.6 10^3/uL (4.4-10.8)
[2024-08-19] MEDS: LACTATED RINGER'S 1,000 ML IV SCH (09:57)
--- NOTE | 2024-08-19 14:10 | DVH ---
CLINICAL INDICATION: 78 years old, Male; Rule out stroke. COMPARISON: CT dated 08/10/2024. TECHNIQUE: Multisequence multiplanar MRI images of the brain were obtained without contrast. FINDINGS: Motion artifact on multiple sequences limits evaluation. Axial gradient echo and T1 weight ed images are particularly limited. No acute infarct or hemorrhage. No mass or midline shift. Ventric les and sulci are within normal limits. Basal cisterns are patent. Cerebellum, brainstem, and midline structures are within normal limits. Paranasal sinuses are clear. Orbits are grossly unremarkable. IMPRESSION: 1. No evidence of acute intracranial abnormality. 2. Motion limited study.
[2024-08-19] MEDS: TPN PER PHARMACY IV NR (22:21)
--- NOTE | 2024-08-19 23:27 | DVHPN2 ---
Progress Note - Dictate Date Seen: Aug 19, 2024 Medical Necessity Reason Pt with a Central, PICC or Fol: Yes The following are medically ne: Powell Catheter Reason for powell catheter: Strict I&O Subjective Patient seen and examined at bedside. Breathing on room air. Overnight events reviewed. vital signs Vital Sign Date Time Temp Pulse Resp B/P (MAP) Pulse Ox O2 Delivery O2 Flow Rate FiO2 08/19/24 22:18 92 16 113/46 08/19/24 18:45 99.3 100 210.7 08/19/24 18:00 Room Air* 0 21 Total Intake and Output 08/18/24 08/18/24 08/19/24 15:00 23:00 07:00 Intake Total 440 ml 372 ml 695 ml Output Total 850 ml 825 ml Balance 440 ml -478 ml -130 ml medications Current Medications Medications Dose Ordered Sig/Akiko Route Start Time Stop Time Status Last Admin Dose Admin Vancomycin HCl 200 ml @ 200 mls/hr Q12HR IV 08/10/24 22:00 UNV Pantoprazole Sodium 40 mg DAILY IV 08/11/24 10:00 08/19/24 08:42 40 MG Acetaminophen 650 mg Q6HP PRN IL 08/10/24 23:30 08/11/24 01:13 650 MG Norepinephrine Bitartrate 16 mg/ Sodium Chloride 250 ml @ 1.875 mls/ hr Q24H IV 08/11/24 18:30 08/16/24 01:00 1.875 MLS/HR Enteral Nutritional Formula 240 ml 50ML/HR GT 08/12/24 12:00 Acetaminophen 650 mg Q6HP PRN PO 08/13/24 11:45 Enoxaparin Sodium 80 mg Q12H SC 08/14/24 12:30 08/18/24 00:30 80 MG Amino Acids 0 ml @ 0 mls/hr PER PHARMACY IV 08/16/24 12:45 Morphine Sulfate 1 mg Q3HP PRN IV 08/17/24 11:00 08/19/24 22:18 1 MG Dextrose 50 ml UD IV 08/18/24 02:45 Diagnostic Test (Pha) 1 strip Q2HR 08/18/24 02:45 08/19/24 22:45 1 STRIP Insulin Human Regular FOLLOW SLIDING SCALE Q4HR SC 08/18/24 02:45 Piperacillin Sod/ Tazobactam Sod 100 ml @ 25 mls/hr Q8HR IV 08/18/24 14:00 08/19/24 22:22 25 MLS/HR Lactated Ringer's 1,000 ml @ 50 mls/hr Q20H IV 08/19/24 08:00 08/19/24 09:57 50 MLS/HR Fat Emulsion Intravenous 100 ml/Potassium Acetate 30 meq/ Potassium Phosphate 40 meq/ Magnesium Sulfate 10 meq/ Multivitamins 10 ml/Amino Acids/ Dextrose/Purified Water 1,436.5909 ml @ 60 mls/hr [id number] IV 08/19/24 22:00 08/20/24 21:59 08/19/24 22:21 60 MLS/HR objective Gen.: Patient lying in bed in no apparent distress. Breathing on room air. Head: Normocephalic, atraumatic. Eyes: EOMI/PERRLA. Ears: Normal hearing. Normal anatomy. Neck/trachea: Trachea midline, supple. Nose: Normal external anatomy. Mouth: Moist mucous membranes. Chest: Decreased air entry bilaterally. No wheezing or rhonchi. Cardiovascular: Positive S1, positive S2. Regular rate and rhythm. Abdomen: Positive bowel sounds in all 4 quadrants. Soft, non-tender, non- distended. : Deferred. Rectal: Deferred. Skin: Warm, dry. Intact. Extremities: 2+ radial pulses bilaterally. No lower extremity edema. Neuro: Awake, alert, oriented x3. No gross motor or sensory deficits. Cranial nerves II through XII intact. Gait not assessed. laboratory and microbiology Laboratory Tests 08/19/24 08:40 08/19/24 03:08 Test 08/19/24 03:08 Range/Units Serum Glucose 203 H 74-106 mg/dL Assessment/Plan Impression: Acute hypoxic respiratory failure Leukocytosis Hypernatremia Parkinson's disease Acute metabolic encephalopathy Decubitus ulcers Sepsis Rhabdomyolysis Acute kidney injury Events: Remains on room air. No respiratory distress. On pressors for hemodynamic support Levophed 2 mcg/min Titrate to keep mean arterial pressure greater than 65 mmHg.. Note, pt had an episode of SVT. Accu-Cheks for glycemic monitoring TPN for nutritional support. Clinimix Continue antibiotics IV fluids with LR 50 ml/hr. Monitor renal function. Monitor electrolytes. Supplement as necessary. Monitor sodium Wound debridement Wound care Head of bed elevation Aspiration precautions 08/12/24 - S/p therapeutic bronchoscopy w/ RML BAL - Mucous plugging from L6-L10 and R1-R10. See separate procedure note for details. Labs and imaging reviewed. Rest of plan as noted below. Plan: S/p extubation 08/15/24 Breathing on room air. Supplemental O2 PRN. CT head: No acute intracranial hemorrhage or stroke. Off sedation Pressors for hemodynamic support. Titrate to keep MAP above 65 mmHg/SBP above 90 mmHg. Antibiotics. Monitor renal function due to Acute kidney injury. Monitor electrolytes. Supplement as necessary. Monitor sodium due to hypernatremia, Na 153 on 08/17/24 IV fluid hydration Do not over correct sodium. Nutritional support. Accu-Cheks, ISS. GI prophylaxis - Protonix DVT prophylaxis. Condition: Critical Prognosis: Poor given multiple comorbidities. Rest of plan per hospitalist and other consultants. A total of 35 minutes of critical care time was spent reviewing the patient record, examining the patient, making a diagnostic and therapeutic plan, discussing this plan with the medical personnel, following up on diagnostic studies and following the patient for clinical stability excluding any and all procedures. At least 50% of this time was spent in direct, [id number] contact. Thank you Dr. Newman for allowing me to participate in this patient's care. Further recommendations will depend on patient's clinical course. Please do not hesitate to contact me if you have any questions or concerns. This medical document was created using an electronic medical record system with [employer] dictation system. Although this document has been carefully reviewed, there may still be some phonetic and typographical errors. These areas are purely typographical due to imperfections of the software programs, and do not reflect any compromise in the patient's medical care. Dietary Evaluation Review Comments: 1. If on Vent Consider Nepro 30ml/hr x 24 hr,( 58g pro 1274 kcal). this will support pt's needs at 100% protein, 94 % kcal. 2. If EN not possible, and NPO > 7 days, consider TPN per pharmacy. 3. If off Vent, and pass speech eval, offer Renal Specific -50g protein 2g Na 3 K Low phos, 4. If off vent on hemo dialysis, pass speech eval, offer Renal Standard 2 gNa 3 K, Low Phos diet. Expected Outcomes/Goals: advance to diet able to eat independently. Plan discussed with: Other (RN Mayra) Critical Care Time(min): 35 REY REAGAN MD Aug 19, 2024 23:27
[2024-08-20] VITALS (96 sets, daily range): BP systolic 87–132; BP diastolic 28–58; PULSE 84–96; RESP 11–33; TEMP 98.8–99.9; O2SAT 99–100
[2024-08-20 04:23] LABS: Basophils # (auto) 0 10 ^3/uL (0-0.2); Basophils % (auto) 0.4 % (0.0-2.0); Eosinophils # (auto) 0.1 10 ^3/uL (0-0.8); Hematocrit 30.8 % (41.0-53.0); Hemoglobin 10.5 g/dL (13.5-17.5); Lymphocytes # (auto) 0.6 10 ^3/uL (0.4-5.4); Lymphocytes % (auto) 8.8 % (10.0-50.0); Mean Corpuscular Hemoglobin 30.4 pg (28.0-32.0); Mean Corpuscular Hgb Conc. 34.2 g/dL (32.0-36.0); Mean Corpuscular Volume 88.8 fL (80.0-100.0); Monocytes # (auto) 0.3 10 ^3/uL (0-1.3); Monocytes % (auto) 4.6 % (0.0-12.0); Neutrophils # (auto) 5.4 10 ^3/uL (1.6-8.6); Neutrophils % (auto) 84.2 % (37.0-80.0); Platelet Count (auto) 205 10^3/uL (140-450); Red Blood Cells 3.47 10^6/uL (4.5-5.90); White Blood Cell 6.5 10^3/uL (4.4-10.8)
[2024-08-20 04:41] LABS: Alanine Aminotransferase 210 U/L (7-40); Albumin 2.9 g/dL (3.2-4.8); Alkaline Phosphatase 179 U/L (46-116); Anion Gap 7 (5-15); Aspartate Aminotransferase 148 U/L (13-40); BUN/Creatinine Ratio 39.3 (10.0-20.0); Bilirubin, Total 1.4 mg/dL (0.2-1.0); Blood Urea Nitrogen 42 mg/dL (9-23); Calcium 8.6 mg/dL (8.7-10.4); Carbon Dioxide 25 mmol/L (20-31); Chloride 116 mmol/L (98-107); Glucose 238 mg/dL (74-106); Magnesium 2.1 mg/dL (1.6-2.6); Potassium 3.8 mmol/L (3.5-5.1); Sodium 148 mmol/L (136-145); Total Protein 5.8 g/dL (5.7-8.2)
--- NOTE | 2024-08-20 12:16 | DVHPN2 ---
Subjective Feels better Reviewed: Care Plan, H&P, Labs, Medications, Previous Orders, Radiology, Other (Consultants) Changes from previous H/P or p: No Changes General: Per HPI Objective Vitals Vital Signs Date Time Temp Pulse Resp B/P (MAP) Pulse Ox O2 Delivery O2 Flow Rate FiO2 08/20/24 10:00 99.1 89 14 101/48 (65) 100 210.4 08/20/24 10:00 Room Air* 0 21 Intake/Output Intake and Output 08/20/24 07:00 Intake Total 2983.0682 ml Output Total 2050 ml Balance 933.0682 ml Intake Oral 210 ml IV Total 2773.0682 ml Output Urine Total 2050 ml # Bowel Movements 1 General Appearance: Alert, Cooperative, No acute distress HEENT: Atraumatic Lungs: Clear to auscultation, Normal air movement Cardiovascular: Regular rate, Normal S1, Normal S2 Abdomen: Normal bowel sounds, Soft, No tenderness Extremities: Other (Some bilateral lower extremities edema) Skin: Wounds (Upper back) Medications Current Medications Medications Dose Ordered Sig/Akiko Route Start Time Stop Time Status Last Admin Dose Admin Vancomycin HCl 200 ml @ 200 mls/hr Q12HR IV 08/10/24 22:00 UNV Pantoprazole Sodium 40 mg DAILY IV 08/11/24 10:00 08/20/24 07:45 40 MG Acetaminophen 650 mg Q6HP PRN DE 08/10/24 23:30 08/11/24 01:13 650 MG Norepinephrine Bitartrate 16 mg/ Sodium Chloride 250 ml @ 1.875 mls/ hr Q24H IV 08/11/24 18:30 08/16/24 01:00 1.875 MLS/HR Enteral Nutritional Formula 240 ml 50ML/HR GT 08/12/24 12:00 Acetaminophen 650 mg Q6HP PRN PO 08/13/24 11:45 Enoxaparin Sodium 80 mg Q12H SC 08/14/24 12:30 08/20/24 11:55 80 MG Amino Acids 0 ml @ 0 mls/hr PER PHARMACY IV 08/16/24 12:45 Morphine Sulfate 1 mg Q3HP PRN IV 08/17/24 11:00 08/20/24 09:12 1 MG Dextrose 50 ml UD IV 08/18/24 02:45 Diagnostic Test (Pha) 1 strip Q2HR 08/18/24 02:45 08/20/24 11:51 1 STRIP Insulin Human Regular FOLLOW SLIDING SCALE Q4HR SC 08/18/24 02:45 Piperacillin Sod/ Tazobactam Sod 100 ml @ 25 mls/hr Q8HR IV 08/18/24 14:00 08/20/24 05:43 25 MLS/HR Lactated Ringer's 1,000 ml @ 50 mls/hr Q20H IV 08/19/24 08:00 08/20/24 04:17 50 MLS/HR Fat Emulsion Intravenous 100 ml/Potassium Acetate 30 meq/ Potassium Phosphate 40 meq/ Magnesium Sulfate 10 meq/ Multivitamins 10 ml/Amino Acids/ Dextrose/Purified Water 1,436.5909 ml @ 60 mls/hr [id number] IV 08/19/24 22:00 08/20/24 21:59 08/19/24 22:21 60 MLS/HR Fat Emulsion Intravenous 100 ml/Potassium Acetate 30 meq/ Potassium Phosphate 44 meq/ Magnesium Sulfate 12 meq/ Multivitamins 10 ml/Amino Acids/ Dextrose/Purified Water 1,588 ml @ 66 mls/hr Q24H4M IV 08/20/24 22:00 08/21/24 21:59 Laboratory Results Laboratory Tests 08/20/24 03:40 Chemistry Test 08/20/24 03:40 Albumin 2.9 g/dL (3.2-4.8) L Calcium Level 8.6 mg/dL (8.7-10.4) L Magnesium Level 2.1 mg/dL (1.6-2.6) Phosphorus Level 3.0 mg/dL (2.4-5.1) Total Protein 5.8 g/dL (5.7-8.2) LFT Test 08/20/24 03:40 Alanine Aminotransferase (ALT) 210 U/L (7-40) H Alkaline Phosphatase 179 U/L (46-116) H Aspartate Amino Transferase (AST) 148 U/L (13-40) H Total Bilirubin 1.4 mg/dL (0.2-1.0) H HgA1c, TSH Test 08/20/24 11:50 Hemoglobin A1c Pending Urinalysis Test 08/11/24 13:02 Urine Color Yellow (Yellow) Urine Clarity Turbid (Clear) H Urine pH 5.5 (5.0-9.0) Urine Specific [place] 1.018 (1.001-1.035) Urine Protein 1+ (Negative) H Urine Ketones Negative (Negative) Urine Blood 3+ /uL (Negative) H Urine Nitrite Negative (Negative) Urine Bilirubin Negative (Negative) Urine Urobilinogen 4 mg/dL (Negative) H Urine Leukocyte Esterase 1+ /uL (Negative) Urine RBC 13 /hpf (0 - 3) Urine WBC 14 /hpf (0 - 3) Urine Squamous Epithelial Cells Few /hpf (<5) Urine Bacteria Few /hpf (None Seen) H Urine Hyaline Casts Few /lpf (0 - 2) Urine Granular Casts Few /lpf (0) Urine Mucus Few (None Seen) Urine Creatinine 67.44 mg/dL (30.0-125.0) Urine Protein/Creatinine Ratio 1.00 Urine Sodium 32 mmol/L (40-220) L Urine Glucose Normal mg/dL (Normal) Urine Total Protein 67.3 mg/dL (1-14) H Microbiology Microbiology Date/Time Source Procedure Growth Status 08/13/24 11:10 Nose MRSA Screen - Final Complete 08/12/24 19:02 Bronchial Washings Gram Stain - Final Resulted 08/12/24 19:02 Respiratory Culture - Preliminary Klebsiella pneumoniae Presumptive Ema albicans Resulted 08/10/24 14:08 Blood Blood Culture - Final NO GROWTH AFTER 5 DAYS OF INCUBATION. Complete Assessment/Plan Assessment/Plan Status poser acute respiratory failure and septic shock Hyponatremia Encephalopathy Acute kidney injury/improved Elevated liver function tests Decubitus ulcers/upper back and gluteal Rhabdomyolysis Cholelithiasis Parkinson Hyperglycemia with no known history of diabetes Overweight Anemia Sikhism Plan: Repeat labs. CPK. Insulin sliding scale with Accu-Cheks. A1c. Ammonia level. Monitoring vital signs and saturation. Further plan per orders. Total critical care time 40 minutes Plan discussed with: Patient, Daughter My Orders Orders - CATHI LOVELL MD Procedure Category Date Status Time Hemoglobin A1c LAB 08/20/24 In Process 10:43 Complete Blood Count LAB 08/21/24 Verified 06:00 Comprehensive LAB 08/21/24 Verified Metabolic Panel 06:00 Creatine Kinase LAB 08/21/24 Verified 06:00 Ammonia LAB 08/21/24 Verified 06:00 Full Liq Diet DIET 08/20/24 Transmitted Lunch Date of Service: Aug 20, 2024 Billing Provider: CATHI LOVELL MD Common Visit Codes: [id number] CARE 30-74 MIN CATHI LOVELL MD Aug 20, 2024 12:16
--- NOTE | 2024-08-20 15:36 | DVHPN2 ---
Progress Note Date Seen: Aug 20, 2024 Medical Necessity Reason Pt with a Central, PICC or Fol: Yes The following are medically ne: Powell Catheter Reason for powell catheter: Strict I&O Objective vital signs Vital Sign Date Time Temp Pulse Resp B/P (MAP) Pulse Ox O2 Delivery O2 Flow Rate FiO2 08/20/24 15:27 92 12 117/48 08/20/24 14:00 99.9 100 211.8 08/20/24 14:00 Room Air* 0 21 Total Intake and Output 08/19/24 08/19/24 08/20/24 15:00 23:00 07:00 Intake Total 900 ml 1048.0682 ml 1035.000 ml Output Total 1000 ml 1050 ml Balance 900 ml 48.0682 ml -15.000 ml medications Current Medications Medications Dose Ordered Sig/Akiko Route Start Time Stop Time Status Last Admin Dose Admin Vancomycin HCl 200 ml @ 200 mls/hr Q12HR IV 08/10/24 22:00 UNV Pantoprazole Sodium 40 mg DAILY IV 08/11/24 10:00 08/20/24 07:45 40 MG Acetaminophen 650 mg Q6HP PRN TX 08/10/24 23:30 08/11/24 01:13 650 MG Norepinephrine Bitartrate 16 mg/ Sodium Chloride 250 ml @ 1.875 mls/ hr Q24H IV 08/11/24 18:30 08/16/24 01:00 1.875 MLS/HR Enteral Nutritional Formula 240 ml 50ML/HR GT 08/12/24 12:00 Acetaminophen 650 mg Q6HP PRN PO 08/13/24 11:45 Enoxaparin Sodium 80 mg Q12H SC 08/14/24 12:30 08/20/24 11:55 80 MG Amino Acids 0 ml @ 0 mls/hr PER PHARMACY IV 08/16/24 12:45 Morphine Sulfate 1 mg Q3HP PRN IV 08/17/24 11:00 08/20/24 15:27 1 MG Dextrose 50 ml UD IV 08/18/24 02:45 Diagnostic Test (Pha) 1 strip Q2HR 08/18/24 02:45 08/20/24 13:53 1 STRIP Insulin Human Regular FOLLOW SLIDING SCALE Q4HR SC 08/18/24 02:45 Piperacillin Sod/ Tazobactam Sod 100 ml @ 25 mls/hr Q8HR IV 08/18/24 14:00 08/20/24 12:57 25 MLS/HR Lactated Ringer's 1,000 ml @ 50 mls/hr Q20H IV 08/19/24 08:00 08/20/24 04:17 50 MLS/HR Fat Emulsion Intravenous 100 ml/Potassium Acetate 30 meq/ Potassium Phosphate 40 meq/ Magnesium Sulfate 10 meq/ Multivitamins 10 ml/Amino Acids/ Dextrose/Purified Water 1,436.5909 ml @ 60 mls/hr [id number] IV 08/19/24 22:00 08/20/24 21:59 08/19/24 22:21 60 MLS/HR Fat Emulsion Intravenous 100 ml/Potassium Acetate 30 meq/ Potassium Phosphate 44 meq/ Magnesium Sulfate 12 meq/ Multivitamins 10 ml/Amino Acids/ Dextrose/Purified Water 1,588 ml @ 66 mls/hr Q24H4M IV 08/20/24 22:00 08/21/24 21:59 Enteral Nutritional Formula 240 ml TIDWM PO 08/20/24 18:00 Enteral Nutritional Formula 28.8 gm BIDBM PO 08/21/24 10:00 laboratory and microbiology Laboratory Tests 08/20/24 03:40 Test 08/20/24 03:40 Range/Units Serum Glucose 238 H 74-106 mg/dL Microbiology Date/Time Source Procedure Growth Status 08/13/24 11:10 Nose MRSA Screen - Final Complete 08/12/24 19:02 Bronchial Washings Gram Stain - Final Resulted 08/12/24 19:02 Respiratory Culture - Preliminary Klebsiella pneumoniae Presumptive Ema albicans Resulted 08/10/24 14:08 Blood Blood Culture - Final NO GROWTH AFTER 5 DAYS OF INCUBATION. Complete Problem List/Assessment/Plan Problem List/Assessment/Plan AFEBRILE VSS BACK AND LEFT GLUTEAL WOUNDS HEALING DRESSING IN PLACE NO COMPLICATIONS Plan discussed with: Other Dietary Evaluation Review Comments: 1. If on Vent Consider Nepro 30ml/hr x 24 hr,( 58g pro 1274 kcal). this will support pt's needs at 100% protein, 94 % kcal. 2. If EN not possible, and NPO > 7 days, consider TPN per pharmacy. 3. If off Vent, and pass speech eval, offer Renal Specific -50g protein 2g Na 3 K Low phos, 4. If off vent on hemo dialysis, pass speech eval, offer Renal Standard 2 gNa 3 K, Low Phos diet. Expected Outcomes/Goals: advance to diet able to eat independently. IAM GRIER MD Aug 20, 2024 15:36
--- NOTE | 2024-08-20 17:14 | DVHINCON2 ---
Date of service: Aug 20, [address] Paty Kauffman Reason for Consultation Encephalopathy, Parkinson's disease History of Present Illness Mr. Howard is a 78 years old right-handed gentleman with a history of Parkinson's disease, the patient was admitted on 08/10 24 with a chief company of altered mental status, at this time, he is awake, oriented to person, he knows that he was in the hospital, he was on pressor drip for unstable vitals, the history is obtained from his daughter, who knows the medical history but not in detail Because he was not responding to the family and other people, on 08/10/24, he was found on the floor nonresponsive in the wellness checkup, the patient was to be down for 2-3 days (RN: 7-10 days), In the hospital, the patient was found to have sepsis with septic shock, acute hypoxic respiratory failure that required intubated (on and was extubated on 08/15/2024), rhabdomyolysis, hypernatremia, pressure sores. According to his daughter, He has intermittent tremors in the left hand when he walks, his gait is slow, he was poor sense of smell, he has low voice since the fall of 2023, he was diagnosed with Parkinson's disease in 2022 and is on Sinemet The patient was lives alone, no major cognitive dysfunction Respiratory culture, 08/12/2024: Klebsiella pneumoniae Blood culture, 08/10/24: Negative UDS, 08/10/2024: Negative Urinalysis, 08/10/2024: WBC 10, urine leukocyte: Trace WBC/HB/PLT/MCV, 08/20/24: 6.5/10.5/205/88.8 PT/INR/PTT, 08/14/2024: 13.9/1.34/30.9 Na, 08/10/2024: 170, 168, 08/11/2024: 165, 08/12/2024: 164, 08/13/2024: 161, 08/14/2024: 156, 08/19/2024: 149, 08/20/24: 149 BUN/CR, 08/18/2024: 45/1.01, 08/20/2024: 42/1.07 TBI/AST/ALT/AP, 08/20/2024: 1.4/148/210/179 Hepatitis panel, 08/11/2024: Negative TSH, 08/11/2024: 4.48 Venous Doppler, lower extremities, 08/13/2024: No left DVT. Positive DVT involving the right lower extremity common femoral vein, femoral vein, popliteal vein and calf. Chest x-ray, 08/10/2024: No acute cardiopulmonary disease. Elevation of the left hemidiaphragm. Enteric tube and endotracheal tube are in satisfactory position CT head, 08/10/2024: 1. No acute intracranial hemorrhage, midline shift or mass effect. 2. Generalized brain atrophy. 3. Small vessel ischemic/degenerative changes. 4. If symptoms persists, further evaluation with MRI is recommended MRI head, 08/19/2024: 1. No evidence of acute intracranial abnormality. 2. Motion limited study Past Medical History Parkinson's disease Past Surgical History None Family History Heart attack, colon cancer, no tremor, no Parkinson's disease Social History He has not tobacco smoker, no history of alcohol or recreational substance abuse Allergies: Coded Allergies: UNOBTAINABLE (Unverified , 08/10/24) Home Meds Reported Medications Gabapentin (Gabapentin) 100 Mg Cap, 2 CAP PO BID for 90 Days, #360 08/11/24 Atorvastatin Calcium (Lipitor) 10 Mg Tab, 1 TAB PO DAILY for 90 Days, #90 08/11/24 Levodopa W/Carbidopa (Carbidopa/Levodopa) 1 Tab Tab, 3 TAB PO TID for 30 Days, #270 TAKE 2 TABLETS BY MOUTH 3 TIMES DAILY FOR 7 DAYS, THEN TAKE 3 TABLETS BY MOUTH 3 TIMES DAILY THEREAFTER. 08/11/24 Current Medications Current Medications Medications (Trade) Dose Ordered Sig/Akiko Route PRN Reason Start Time Stop Time Status Last Admin Fat Emulsion Intravenous 100 ml/Potassium Acetate 30 meq/ Potassium Phosphate 40 meq/ Magnesium Sulfate 10 meq/ Multivitamins 10 ml/Amino Acids/ Dextrose/Purified Water 1,436.5909 ml @ 60 mls/hr [id number] IV 08/19/24 22:00 08/20/24 21:59 08/19/24 22:21 Fat Emulsion Intravenous 100 ml/Potassium Acetate 30 meq/ Potassium Phosphate 44 meq/ Magnesium Sulfate 12 meq/ Multivitamins 10 ml/Amino Acids/ Dextrose/Purified Water 1,588 ml @ 66 mls/hr Q24H4M IV 08/20/24 22:00 08/21/24 21:59 Enteral Nutritional Formula (Nepro With Carbsteady) 240 ml TIDWM PO 08/20/24 18:00 Enteral Nutritional Formula (Marvin Fruit Punch Powder PACKET) 28.8 gm BIDBM PO 08/21/24 10:00 Review of Systems As above, the other systems are negative Vital Signs Vital Signs Date Time Temp Pulse Resp B/P (MAP) Pulse Ox O2 Delivery O2 Flow Rate FiO2 08/20/24 16:00 90 08/20/24 16:00 29 100 Room Air* 0 21 08/20/24 16:00 99.5 101/42 (61) 211.1 Physical Exam GENERAL EXAM: General: the patient is well developed and nourished. No acute distress. HEENT: Normocephalic, neck is supple, no carotid bruits. No mass. RESPIRATORY: Normal respiratory effort with symmetrical lung expansion. Lungs clear to auscultation. CARDIOVASCULAR: Regular rate and rhythm with no murmurs. S1, S2. ABDOMEN: Soft, nontender, normal bowel sound MUSCULOSKELETAL EXAM: Pressure sores NEUROLOGICAL: MENTAL STATUS: Awake, oriented to person place SPEECH, LANGUAGE, HIGHER CORTICAL FUNCTION: no aphasia or dysathria. CRANIAL NERVES: #2: Intact visual kumar to confrontation. The optic discs were sharp. #3,4,6: Pupils are equal, round and reactive. EOMs full and conjugate. No nystagmus. #5: Facial sensation intact in all three divisions bilaterally. Mandibular strength intact. #7: Facial muscles symmetrical and strength intact. #8: Hearing grossly normal to voice. #9,10: Uvula and soft palate rise in the midline. Swallow and voice are normal. #11: Trapezius and sternomastoid strength intact bilaterally. #12: Tongue midline. No fasciculations or atrophy. SENSATION: Sensation to touch and pinprick is Ok MOTOR: Normal tone in the upper and lower extremity. Normal muscle bulk. No fasciculations. No abnormal movements or posturing. He moves the arms a little bit REFLEXES: Deep tendon reflexes normal and symmetrical. No pathological reflexes. CEREBELLAR/COORDINATION: Deferred GAIT/STATION: deferred. Labs/Diagnostic Data Labs Test 08/20/24 11:50 08/20/24 03:40 08/19/24 08:40 08/18/24 14:02 Range/Units Hemoglobin A1c 6.1 H <5.7 % A1C White Blood Count 6.5 4.4-10.8 10^3/uL Red Blood Count 3.47 L 4.5-5.90 10^6/uL Hemoglobin 10.5 L 13.5-17.5 g/dL Hematocrit 30.8 L 41.0-53.0 % Mean Corpuscular Volume 88.8 80.0-100.0 fL Mean Corpuscular Hemoglobin 30.4 28.0-32.0 pg Mean Corpuscular Hemoglobin Concent 34.2 32.0-36.0 g/dL Red Cell Distribution Width 13.0 11.8-14.3 % Platelet Count 205 140-450 10^3/uL Mean Platelet Volume 9.2 6.9-10.8 fL Neutrophils (%) (Auto) 84.2 H 37.0-80.0 % Lymphocytes (%) (Auto) 8.8 L 10.0-50.0 % Monocytes (%) (Auto) 4.6 0.0-12.0 % Eosinophils (%) (Auto) 2.0 0.0-7.0 % Basophils (%) (Auto) 0.4 0.0-2.0 % Neutrophils # (Auto) 5.4 1.6-8.6 10 ^3/uL Lymphocytes # (Auto) 0.6 0.4-5.4 10 ^3/uL Monocytes # (Auto) 0.3 0-1.3 10 ^3/uL Eosinophils # (Auto) 0.1 0-0.8 10 ^3/uL Basophils # (Auto) 0 0-0.2 10 ^3/uL Nucleated Red Blood Cells 0.0 % Sodium Level 148 H 136-145 mmol/L Potassium Level 3.8 3.5-5.1 mmol/L Chloride Level 116 H 98-107 mmol/L Carbon Dioxide Level 25 20-31 mmol/L Anion Gap 7 5-15 Blood Urea Nitrogen 42 H 9-23 mg/dL Creatinine 1.07 0.700-1.30 mg/dL Glomerular Filtration Rate Calc 72 >90 mL/min BUN/Creatinine Ratio 39.3 H 10.0-20.0 Serum Glucose 238 H 74-106 mg/dL Calcium Level 8.6 L 8.7-10.4 mg/dL Phosphorus Level 3.0 2.4-5.1 mg/dL Magnesium Level 2.1 1.6-2.6 mg/dL Total Bilirubin 1.4 H 0.2-1.0 mg/dL Aspartate Amino Transferase (AST) 148 H 13-40 U/L Alanine Aminotransferase (ALT) 210 H 7-40 U/L Alkaline Phosphatase 179 H 46-116 U/L Total Protein 5.8 5.7-8.2 g/dL Albumin 2.9 L 3.2-4.8 g/dL Cortisol AM Sample 20.77 5.27-22.45 ug/dL POC Glucose 148 H 70-106 mg/dl Test 08/18/24 03:23 08/16/24 03:30 08/15/24 14:47 08/15/24 11:20 Range/Units Creatine Kinase 1012 H 46-171 U/L Triglycerides Level 131 < 150 mg/dL Miscellaneous Referred Test (Rm Tmp Sent to [facility] Blood Gas Specimen Type Arterial Blood Gas Sample Site Right radial Blood Gas Patient Temperature 37.0 Arterial Blood Date Drawn [id number] Arterial Blood pH 7.421 7.350-7.450 Arterial Blood Partial Pressure CO2 40.5 35.0-48.0 mmHg Arterial Blood Partial Pressure O2 126.4 H 83.0-108.0 mmHg Arterial Blood HCO3 25.7 21.0-28.0 mmol/L Arterial Blood Oxygen Saturation 98.2 H 94.0-98.0 % Arterial Blood Base Excess 1.2 -2.0-3.0 mmol/L Arterial Blood Oxyhemoglobin 97.9 94.0-98.0 % Arterial Blood Carboxyhemoglobin 0.1 L 0.5-1.5 % Arterial Blood Methemoglobin 0.2 0.0-1.5 % Kirby Test Modified Blood Gas Total Hemoglobin 13.10 L 13.5-17.5 g/dL Blood Gas Modality Vent - cpap Blood Gas Spontaneous Rate 12 FiO2 % 30.0 Blood Gas Pressure Support 8 Blood Gas PEEP or CPAP 5.0 Test 08/15/24 06:55 08/14/24 03:35 08/13/24 03:05 08/12/24 20:55 Range/Units Blood Gas Set Respiration Rate 14.0 Blood Gas Tidal Volume 500.0 Platelet Estimate Decrea Large Platelets Few Prothrombin Time 13.9 H 9.3-11.8 sec Prothrombin Time INR 1.34 H 0.9-1.15 Activated Partial Thromboplast Time 30.9 24.5-34.5 SEC Random Vancomycin Level 12.6 H 5-10 ug/mL Influenza Type A Antigen Negative Negative Influenza Type B Antigen Negative Negative Test 08/12/24 15:13 08/11/24 13:02 08/11/24 03:10 08/10/24 20:30 Range/Units SARS-CoV-2 Antigen (Rapid) Negative NEGATIVE Urine Color Yellow Yellow Urine Clarity Turbid H Clear Urine pH 5.5 5.0-9.0 Urine Specific [place] 1.018 1.001-1.035 Urine Protein 1+ H Negative Urine Ketones Negative Negative Urine Blood 3+ H Negative /uL Urine Nitrite Negative Negative Urine Bilirubin Negative Negative Urine Urobilinogen 4 H Negative mg/dL Urine Leukocyte Esterase 1+ Negative /uL Urine RBC 13 0 - 3 /hpf Urine WBC 14 0 - 3 /hpf Urine Squamous Epithelial Cells Few <5 /hpf Urine Bacteria Few H None Seen /hpf Urine Hyaline Casts Few 0 - 2 /lpf Urine Granular Casts Few 0 /lpf Urine Mucus Few None Seen Urine Creatinine 67.44 30.0-125.0 mg/dL Urine Protein/Creatinine Ratio 1.00 Urine Sodium 32 L 40-220 mmol/L Urine Glucose Normal Normal mg/dL Urine Total Protein 67.3 H 1-14 mg/dL Ammonia 32 11-32 umol/L Vitamin D 25-Hydroxy 68.2 30.0-100 ng/mL Thyroid Stimulating Hormone (TSH) 4.48 0.55-4.78 uIU/mL Parathyroid Hormone (Intact) 169.0 H 18.4-80.1 pg/mL Hepatitis B Surface Antigen Negative Negative Hepatitis C Antibody Negative Negative Troponin I High Sensitivity 42 </=54 ng/L Test 08/10/24 15:07 08/10/24 14:08 08/10/24 13:42 Range/Units Blood Gas Critical Value Read Back Yes Blood Gas Notified Whom Dr. su staples Blood Gas Notified Time [id number] Blood Gas Notified By Handicapped Teacher don garrido Lactic Acid Level 0.7 0.4-2.0 mmol/L Urine Opiates Screen Neg NEGATIVE Urine Fentanyl Screen Neg NEGATIVE Urine Barbiturates Screen Neg NEGATIVE Urine Phencyclidine Screen Neg NEGATIVE Urine Amphetamines Screen Neg NEGATIVE Urine Benzodiazepines Screen Neg NEGATIVE Urine Cocaine Screen Neg NEGATIVE Urine Cannabinoids Screen Neg NEGATIVE Microbiology Date/Time Source Procedure Growth Status 08/13/24 11:10 Nose MRSA Screen - Final Complete 08/12/24 19:02 Bronchial Washings Gram Stain - Final Resulted 08/12/24 19:02 Respiratory Culture - Preliminary Klebsiella pneumoniae Presumptive Ema albicans Resulted 08/10/24 14:08 Blood Blood Culture - Final NO GROWTH AFTER 5 DAYS OF INCUBATION. Complete Assessment Altered mental status/metabolic encephalopathy secondary to Sepsis Septic shock Respiratory failure Urinary tract infection Dehydration Acute kidney failure Hypernatremia Rhabdomyolysis Left-handed tremors, gait disturbance, low voice Parkinson's disease Rule out essential tremor Pressure sores Plan/Recommendation Monitoring Supportive treatment ICU care Respiratory support p.r.n. Stabilize vitals/pressor drip Oxygen IV antiepileptics Hydration May consider resumed Sinemet Wound care DVT prophylaxis GI prophylaxis Pulmonary on case Nephrology on case Surgery on case More recommendation per clinical course Progress: Guarded Critical care time spent is 45 minutes This medical document was created using an electronic medical record system with [employer] dictation system. Although this document has been carefully reviewed, there may still be some phonetic and typographical errors. These areas are purely typographical due to imperfections of the software programs, and do not reflect any compromise in the patient's medical care. Plan discussed with: Daughter, Other EVELINE HUNTER MD Aug 20, 2024 17:14
[2024-08-20] MEDS: Nepro With Carbsteady Vanilla 8oz Carton PO SCH (18:00)
[2024-08-20] MEDS: TPN PER PHARMACY IV NR (22:08)
--- NOTE | 2024-08-20 22:47 | DVHPN2 ---
Progress Note - Dictate Date Seen: Aug 20, 2024 Medical Necessity Reason Pt with a Central, PICC or Fol: Yes The following are medically ne: Powell Catheter Reason for powell catheter: Strict I&O Subjective Patient seen and examined at bedside. Breathing on room air. Overnight events reviewed. vital signs Vital Sign Date Time Temp Pulse Resp B/P (MAP) Pulse Ox O2 Delivery O2 Flow Rate FiO2 08/20/24 18:45 99.7 93 22 124/46 (72) 100 211.5 08/20/24 18:00 Room Air* 0 21 Total Intake and Output 08/19/24 08/19/24 08/20/24 15:00 23:00 07:00 Intake Total 900 ml 1048.0682 ml 1035.000 ml Output Total 1000 ml 1050 ml Balance 900 ml 48.0682 ml -15.000 ml medications Current Medications Medications Dose Ordered Sig/Akiko Route Start Time Stop Time Status Last Admin Dose Admin Vancomycin HCl 200 ml @ 200 mls/hr Q12HR IV 08/10/24 22:00 UNV Pantoprazole Sodium 40 mg DAILY IV 08/11/24 10:00 08/20/24 07:45 40 MG Acetaminophen 650 mg Q6HP PRN [place] 08/10/24 23:30 08/11/24 01:13 650 MG Norepinephrine Bitartrate 16 mg/ Sodium Chloride 250 ml @ 1.875 mls/ hr Q24H IV 08/11/24 18:30 08/16/24 01:00 1.875 MLS/HR Enteral Nutritional Formula 240 ml 50ML/HR GT 08/12/24 12:00 Acetaminophen 650 mg Q6HP PRN PO 08/13/24 11:45 Enoxaparin Sodium 80 mg Q12H SC 08/14/24 12:30 08/20/24 11:55 80 MG Amino Acids 0 ml @ 0 mls/hr PER PHARMACY IV 08/16/24 12:45 Morphine Sulfate 1 mg Q3HP PRN IV 08/17/24 11:00 08/20/24 15:27 1 MG Dextrose 50 ml UD IV 08/18/24 02:45 Diagnostic Test (Pha) 1 strip Q2HR 08/18/24 02:45 08/20/24 22:32 1 STRIP Insulin Human Regular FOLLOW SLIDING SCALE Q4HR SC 08/18/24 02:45 Piperacillin Sod/ Tazobactam Sod 100 ml @ 25 mls/hr Q8HR IV 08/18/24 14:00 08/20/24 22:06 25 MLS/HR Lactated Ringer's 1,000 ml @ 50 mls/hr Q20H IV 08/19/24 08:00 08/20/24 04:17 50 MLS/HR Fat Emulsion Intravenous 100 ml/Potassium Acetate 30 meq/ Potassium Phosphate 44 meq/ Magnesium Sulfate 12 meq/ Multivitamins 10 ml/Amino Acids/ Dextrose/Purified Water 1,588 ml @ 66 mls/hr Q24H4M IV 08/20/24 22:00 08/21/24 21:59 08/20/24 22:08 66 MLS/HR Enteral Nutritional Formula 240 ml TIDWM PO 08/20/24 18:00 Enteral Nutritional Formula 28.8 gm BIDBM PO 08/21/24 10:00 objective Gen.: Patient lying in bed in no apparent distress. Breathing on room air. Head: Normocephalic, atraumatic. Eyes: EOMI/PERRLA. Ears: Normal hearing. Normal anatomy. Neck/trachea: Trachea midline, supple. Nose: Normal external anatomy. Mouth: Moist mucous membranes. Chest: Decreased air entry bilaterally. No wheezing or rhonchi. Cardiovascular: Positive S1, positive S2. Regular rate and rhythm. Abdomen: Positive bowel sounds in all 4 quadrants. Soft, non-tender, non- distended. : Deferred. Rectal: Deferred. Skin: Warm, dry. Intact. Extremities: 2+ radial pulses bilaterally. No lower extremity edema. Neuro: Awake, alert, oriented x3. No gross motor or sensory deficits. Cranial nerves II through XII intact. Gait not assessed. laboratory and microbiology Laboratory Tests 08/20/24 03:40 Test 08/20/24 03:40 Range/Units Serum Glucose 238 H 74-106 mg/dL Assessment/Plan Impression: Acute hypoxic respiratory failure Leukocytosis Hypernatremia Parkinson's disease Acute metabolic encephalopathy Decubitus ulcers Sepsis Rhabdomyolysis Acute kidney injury Events: Remains on room air. No respiratory distress. On pressors for hemodynamic support On Levophed at 6 mcg/min Titrate to keep mean arterial pressure greater than 65 mmHg.. Accu-Cheks for glycemic monitoring TPN for nutritional support. Patient is a Puree Diet. Continue antibiotics IV fluids with LR 50 ml/hr. Monitor renal function. Monitor electrolytes. Supplement as necessary. Monitor sodium Wound debridement Wound care Head of bed elevation Aspiration precautions There were recs appreciated. Labs and imaging reviewed. Rest of plan as noted below. Plan: S/p extubation 08/15/24 Breathing on room air. Supplemental O2 PRN. CT head: No acute intracranial hemorrhage or stroke. Pressors for hemodynamic support. Titrate to keep MAP above 65 mmHg/SBP above 90 mmHg. Antibiotics. Monitor renal function due to Acute kidney injury. Monitor electrolytes. Supplement as necessary. Monitor sodium due to hypernatremia, Na 153 on 08/17/24 IV fluid hydration Do not over correct sodium. Nutritional support. Accu-Cheks, ISS. GI prophylaxis - Protonix DVT prophylaxis. Condition: Critical Prognosis: Poor given multiple comorbidities. Rest of plan per hospitalist and other consultants. A total of 35 minutes of critical care time was spent reviewing the patient record, examining the patient, making a diagnostic and therapeutic plan, discussing this plan with the medical personnel, following up on diagnostic studies and following the patient for clinical stability excluding any and all procedures. At least 50% of this time was spent in direct, [id number] contact. Thank you Dr. Newman for allowing me to participate in this patient's care. Further recommendations will depend on patient's clinical course. Please do not hesitate to contact me if you have any questions or concerns. This medical document was created using an electronic medical record system with [employer] dictation system. Although this document has been carefully reviewed, there may still be some phonetic and typographical errors. These areas are purely typographical due to imperfections of the software programs, and do not reflect any compromise in the patient's medical care. Dietary Evaluation Review Comments: 1. If on Vent Consider Nepro 30ml/hr x 24 hr,( 58g pro 1274 kcal). this will support pt's needs at 100% protein, 94 % kcal. 2. If EN not possible, and NPO > 7 days, consider TPN per pharmacy. 3. If off Vent, and pass speech eval, offer Renal Specific -50g protein 2g Na 3 K Low phos, 4. If off vent on hemo dialysis, pass speech eval, offer Renal Standard 2 gNa 3 K, Low Phos diet. Expected Outcomes/Goals: advance to diet able to eat independently. Plan discussed with: Other (RN Mayra, ) Critical Care Time(min): 35 REY REAGAN MD Aug 20, 2024 22:47
[2024-08-21] VITALS (96 sets, daily range): BP systolic 91–140; BP diastolic 31–68; PULSE 85–104; RESP 10–27; TEMP 98.8–99.7; O2SAT 100
[2024-08-21 04:57] LABS: Basophils # (auto) 0 10 ^3/uL (0-0.2); Basophils % (auto) 0.5 % (0.0-2.0); Eosinophils # (auto) 0.2 10 ^3/uL (0-0.8); Eosinophils % (auto) 2.4 % (0.0-7.0); Hematocrit 29.6 % (41.0-53.0); Hemoglobin 10.1 g/dL (13.5-17.5); Lymphocytes # (auto) 0.8 10 ^3/uL (0.4-5.4); Lymphocytes % (auto) 11.2 % (10.0-50.0); Mean Corpuscular Hemoglobin 30.2 pg (28.0-32.0); Mean Corpuscular Hgb Conc. 34.2 g/dL (32.0-36.0); Mean Corpuscular Volume 88.4 fL (80.0-100.0); Monocytes # (auto) 0.3 10 ^3/uL (0-1.3); Monocytes % (auto) 4.5 % (0.0-12.0); Neutrophils # (auto) 5.7 10 ^3/uL (1.6-8.6); Neutrophils % (auto) 81.4 % (37.0-80.0); Nucleated Red Blood Cells % 0.1 %; Platelet Count (auto) 210 10^3/uL (140-450); Red Blood Cells 3.35 10^6/uL (4.5-5.90); White Blood Cell 6.9 10^3/uL (4.4-10.8)
[2024-08-21 05:07] LABS: Anion Gap 6 (5-15); BUN/Creatinine Ratio 35.2 (10.0-20.0); Carbon Dioxide 27 mmol/L (20-31); Magnesium 2.1 mg/dL (1.6-2.6); Potassium 3.7 mmol/L (3.5-5.1)
[2024-08-21 05:08] LABS: Phosphorus 2.7 mg/dL (2.4-5.1); Total Protein 5.7 g/dL (5.7-8.2)
[2024-08-21 05:11] LABS: Alanine Aminotransferase 183 U/L (7-40); Albumin 2.7 g/dL (3.2-4.8); Alkaline Phosphatase 192 U/L (46-116); Aspartate Aminotransferase 105 U/L (13-40); Bilirubin, Total 1.2 mg/dL (0.2-1.0); Blood Urea Nitrogen 37 mg/dL (9-23); Calcium 8.3 mg/dL (8.7-10.4); Chloride 115 mmol/L (98-107); Creatine Kinase IFCC 510 U/L (46-171); Glucose 278 mg/dL (74-106); Sodium 148 mmol/L (136-145)
--- NOTE | 2024-08-21 06:09 | DVH ---
CHEST RADIOGRAPH Indication: fu Technique: Single frontal view of the chest was obtained COMPARISON: XY CHEST XRAY 1 VIEW on DOS: 08/16/24, XY CHEST PORTABLE on DOS: 08/15/24, XY CHEST PHILIPP BLE on DOS: 08/14/24, XY CHEST PORTABLE on DOS: 08/13/24, XY CHEST XRAY 1 VIEW on DOS: 08/12/24 FINDINGS: Lines and Tubes: Right central venous catheter in satisfactory position. Lungs: Increased congestion. Pleura: No effusion. No pneumothorax. Cardiomediastinal contours: Unremarkable Bones: Unremarkable IMPRESSION: Increased congestion.
[2024-08-21] MEDS: Juven Fruit Punch Powder PACKET 28.8gm PO SCH (08:54)
[2024-08-21] MEDS ORDERED: DEXTROSE (50%) 50ML SYRG IV PRN (09:30)
[2024-08-21] MEDS ORDERED: DEXTROSE (50%) 50ML SYRG IV SCH (10:00)
[2024-08-21] MEDS: INSULIN LANTUS (GLARGINE) 1 /0.01ml (100units/ml) SC SCH (10:27)
--- NOTE | 2024-08-21 10:36 | DVHPN2 ---
Subjective Feels the same. No change. Still on vasopressors Reviewed: Care Plan, H&P, Labs, Medications, Previous Orders, Radiology, Other (Consultants) Changes from previous H/P or p: No Changes General: Per HPI Objective Vitals Vital Signs Date Time Temp Pulse Resp B/P (MAP) Pulse Ox O2 Delivery O2 Flow Rate FiO2 08/21/24 08:59 91 21 120/52 08/21/24 08:45 99.0 100 210.2 08/21/24 08:00 Room Air* 0 30 21 Intake/Output Intake and Output 08/21/24 07:00 Intake Total 3495.5909 ml Output Total 2600 ml Balance 895.5909 ml Intake Oral 350 ml IV Total 3145.5909 ml Output Urine Total 2600 ml General Appearance: Alert, Cooperative, No acute distress HEENT: Atraumatic Lungs: Clear to auscultation, Normal air movement Cardiovascular: Regular rate, Normal S1, Normal S2 Abdomen: Normal bowel sounds, Soft, No tenderness Extremities: Other (Some bilateral lower extremities edema) Skin: Wounds (Upper back) Medications Current Medications Medications Dose Ordered Sig/Akiko Route Start Time Stop Time Status Last Admin Dose Admin Vancomycin HCl 200 ml @ 200 mls/hr Q12HR IV 08/10/24 22:00 UNV Pantoprazole Sodium 40 mg DAILY IV 08/11/24 10:00 08/21/24 10:22 40 MG Acetaminophen 650 mg Q6HP PRN [place] 08/10/24 23:30 08/11/24 01:13 650 MG Norepinephrine Bitartrate 16 mg/ Sodium Chloride 250 ml @ 1.875 mls/ hr Q24H IV 08/11/24 18:30 08/16/24 01:00 1.875 MLS/HR Enteral Nutritional Formula 240 ml 50ML/HR GT 08/12/24 12:00 Enoxaparin Sodium 80 mg Q12H SC 08/14/24 12:30 08/21/24 00:27 80 MG Amino Acids 0 ml @ 0 mls/hr PER PHARMACY IV 08/16/24 12:45 Morphine Sulfate 1 mg Q3HP PRN IV 08/17/24 11:00 08/21/24 08:29 1 MG Piperacillin Sod/ Tazobactam Sod 100 ml @ 25 mls/hr Q8HR IV 08/18/24 14:00 08/21/24 05:17 25 MLS/HR Lactated Ringer's 1,000 ml @ 50 mls/hr Q20H IV 08/19/24 08:00 08/21/24 00:26 50 MLS/HR Fat Emulsion Intravenous 100 ml/Potassium Acetate 30 meq/ Potassium Phosphate 44 meq/ Magnesium Sulfate 12 meq/ Multivitamins 10 ml/Amino Acids/ Dextrose/Purified Water 1,588 ml @ 66 mls/hr Q24H4M IV 08/20/24 22:00 08/21/24 21:59 08/20/24 22:08 66 MLS/HR Enteral Nutritional Formula 240 ml TIDWM PO 08/20/24 18:00 08/21/24 08:54 240 ML Enteral Nutritional Formula 28.8 gm BIDBM PO 08/21/24 10:00 08/21/24 08:54 28.8 GM Insulin Glargine 10 units DAILY@1000 SC 08/21/24 10:00 08/21/24 10:27 10 UNITS Diagnostic Test (Pha) 1 strip Q6HR 08/21/24 12:00 Acetaminophen 650 mg Q6HP PRN PO 08/21/24 12:00 Diagnostic Test (Pha) 1 strip Q6HR 08/21/24 12:00 Cancel Insulin Human Regular FOLLOW SLIDING SCALE Q6HR SC 08/21/24 12:00 Cancel Dextrose 50 ml UD IV 08/21/24 10:00 Cancel Laboratory Results Laboratory Tests 08/21/24 04:10 Chemistry Test 08/21/24 04:10 Albumin 2.7 g/dL (3.2-4.8) L Calcium Level 8.3 mg/dL (8.7-10.4) L Magnesium Level 2.1 mg/dL (1.6-2.6) Phosphorus Level 2.7 mg/dL (2.4-5.1) Total Protein 5.7 g/dL (5.7-8.2) LFT Test 08/21/24 04:10 Alanine Aminotransferase (ALT) 183 U/L (7-40) H Alkaline Phosphatase 192 U/L (46-116) H Aspartate Amino Transferase (AST) 105 U/L (13-40) H Total Bilirubin 1.2 mg/dL (0.2-1.0) H HgA1c, TSH Test 08/20/24 11:50 Hemoglobin A1c 6.1 % A1C (<5.7) H Urinalysis Test 08/11/24 13:02 Urine Color Yellow (Yellow) Urine Clarity Turbid (Clear) H Urine pH 5.5 (5.0-9.0) Urine Specific [place] 1.018 (1.001-1.035) Urine Protein 1+ (Negative) H Urine Ketones Negative (Negative) Urine Blood 3+ /uL (Negative) H Urine Nitrite Negative (Negative) Urine Bilirubin Negative (Negative) Urine Urobilinogen 4 mg/dL (Negative) H Urine Leukocyte Esterase 1+ /uL (Negative) Urine RBC 13 /hpf (0 - 3) Urine WBC 14 /hpf (0 - 3) Urine Squamous Epithelial Cells Few /hpf (<5) Urine Bacteria Few /hpf (None Seen) H Urine Hyaline Casts Few /lpf (0 - 2) Urine Granular Casts Few /lpf (0) Urine Mucus Few (None Seen) Urine Creatinine 67.44 mg/dL (30.0-125.0) Urine Protein/Creatinine Ratio 1.00 Urine Sodium 32 mmol/L (40-220) L Urine Glucose Normal mg/dL (Normal) Urine Total Protein 67.3 mg/dL (1-14) H Microbiology Microbiology Date/Time Source Procedure Growth Status 08/13/24 11:10 Nose MRSA Screen - Final Complete 08/12/24 19:02 Bronchial Washings Gram Stain - Final Resulted 08/12/24 19:02 Respiratory Culture - Preliminary Klebsiella pneumoniae Presumptive Ema albicans Resulted 08/10/24 14:08 Blood Blood Culture - Final NO GROWTH AFTER 5 DAYS OF INCUBATION. Complete Assessment/Plan Assessment/Plan Status poser acute respiratory failure and septic shock Hyponatremia Encephalopathy Acute kidney injury/improved Elevated liver function tests Decubitus ulcers/upper back and gluteal Rhabdomyolysis Cholelithiasis Parkinson Hyperglycemia with no known history of diabetes/patient is prediabetic with A1c of 6.1 Overweight Anemia Taoist Plan: Continue current plan of care. Lantus 10 units daily. Insulin sliding scale mild regimen. Continue vasopressors watch for blood pressure. Taper off slowly. Total critical care time 35 minutes Plan discussed with: Patient, Other (Nursing) My Orders Orders - CATHI LOVELL MD Procedure Category Date Status Time Full Liq Diet DIET 08/20/24 Transmitted Lunch Ac Mild Insulin Scale JOHN 08/20/24 In Process (Not Rx) 12:16 Chest Portable XY 08/21/24 Resulted 06:00 Insulin Lantus PHA 08/21/24 In Process (Glargine) (Lantus) 10:00 Glucose Blood PHA 08/21/24 In Process (Accu-Chek Comfort 12:00 Date of Service: Aug 21, 2024 Billing Provider: CATHI LOVELL MD Common Visit Codes: [id number] CARE 30-74 MIN CATHI LOVELL MD Aug 21, 2024 10:36
--- NOTE | 2024-08-21 11:49 | DVHPN2 ---
Progress Note Date Seen: Aug 21, 2024 Medical Necessity Reason Pt with a Central, PICC or Fol: Yes The following are medically ne: Powell Catheter Reason for powell catheter: Strict I&O Objective vital signs Vital Sign Date Time Temp Pulse Resp B/P (MAP) Pulse Ox O2 Delivery O2 Flow Rate FiO2 08/21/24 11:15 99.5 90 18 124/50 (74) 100 211.1 08/21/24 10:00 Room Air* 0 21 Total Intake and Output 08/20/24 08/20/24 08/21/24 15:00 23:00 07:00 Intake Total 1100.625 ml 1171.9659 ml 1223.000 ml Output Total 1050 ml 1550 ml Balance 1100.625 ml 121.9659 ml -327.000 ml medications Current Medications Medications Dose Ordered Sig/Akiko Route Start Time Stop Time Status Last Admin Dose Admin Vancomycin HCl 200 ml @ 200 mls/hr Q12HR IV 08/10/24 22:00 UNV Pantoprazole Sodium 40 mg DAILY IV 08/11/24 10:00 08/21/24 10:22 40 MG Acetaminophen 650 mg Q6HP PRN IN 08/10/24 23:30 08/11/24 01:13 650 MG Norepinephrine Bitartrate 16 mg/ Sodium Chloride 250 ml @ 1.875 mls/ hr Q24H IV 08/11/24 18:30 08/16/24 01:00 1.875 MLS/HR Enteral Nutritional Formula 240 ml 50ML/HR GT 08/12/24 12:00 Enoxaparin Sodium 80 mg Q12H SC 08/14/24 12:30 08/21/24 00:27 80 MG Amino Acids 0 ml @ 0 mls/hr PER PHARMACY IV 08/16/24 12:45 Morphine Sulfate 1 mg Q3HP PRN IV 08/17/24 11:00 08/21/24 08:29 1 MG Piperacillin Sod/ Tazobactam Sod 100 ml @ 25 mls/hr Q8HR IV 08/18/24 14:00 08/21/24 05:17 25 MLS/HR Lactated Ringer's 1,000 ml @ 50 mls/hr Q20H IV 08/19/24 08:00 08/21/24 00:26 50 MLS/HR Fat Emulsion Intravenous 100 ml/Potassium Acetate 30 meq/ Potassium Phosphate 44 meq/ Magnesium Sulfate 12 meq/ Multivitamins 10 ml/Amino Acids/ Dextrose/Purified Water 1,588 ml @ 66 mls/hr Q24H4M IV 08/20/24 22:00 08/21/24 21:59 08/20/24 22:08 66 MLS/HR Enteral Nutritional Formula 240 ml TIDWM PO 08/20/24 18:00 08/21/24 08:54 240 ML Enteral Nutritional Formula 28.8 gm BIDBM PO 08/21/24 10:00 08/21/24 08:54 28.8 GM Insulin Glargine 10 units DAILY@1000 SC 08/21/24 10:00 08/21/24 10:27 10 UNITS Diagnostic Test (Pha) 1 strip Q6HR 08/21/24 12:00 Insulin Human Regular Q6HR SC 08/21/24 12:00 Dextrose 50 ml UD PRN IV 08/21/24 09:30 Acetaminophen 650 mg Q6HP PRN PO 08/21/24 12:00 Diagnostic Test (Pha) 1 strip Q6HR 08/21/24 12:00 Cancel Insulin Human Regular FOLLOW SLIDING SCALE Q6HR SC 08/21/24 12:00 Cancel Dextrose 50 ml UD IV 08/21/24 10:00 Cancel Fat Emulsion Intravenous 100 ml/Potassium Acetate 30 meq/ Potassium Phosphate 66 meq/ Magnesium Sulfate 14 meq/ Multivitamins 10 ml/Insulin Human Regular 4 units/ Amino Acids/ Dextrose/Purified Water 1,743.54 ml @ 73 mls/hr [id number] IV 08/21/24 22:00 08/22/24 21:59 laboratory and microbiology Laboratory Tests 08/21/24 04:10 Test 08/21/24 04:10 Range/Units Serum Glucose 278 H 74-106 mg/dL Microbiology Date/Time Source Procedure Growth Status 08/13/24 11:10 Nose MRSA Screen - Final Complete 08/12/24 19:02 Bronchial Washings Gram Stain - Final Resulted 08/12/24 19:02 Respiratory Culture - Preliminary Klebsiella pneumoniae Presumptive Ema albicans Resulted 08/10/24 14:08 Blood Blood Culture - Final NO GROWTH AFTER 5 DAYS OF INCUBATION. Complete Problem List/Assessment/Plan Problem List/Assessment/Plan AFEBRILE VSS BACK AND LEFT GLUTEAL WOUNDS HEALING DRESSING IN PLACE NO COMPLICATIONS CONTINUE SUPPORTIVE CARE Plan discussed with: Patient Dietary Evaluation Review Comments: 1. If on Vent Consider Nepro 30ml/hr x 24 hr,( 58g pro 1274 kcal). this will support pt's needs at 100% protein, 94 % kcal. 2. If EN not possible, and NPO > 7 days, consider TPN per pharmacy. 3. If off Vent, and pass speech eval, offer Renal Specific -50g protein 2g Na 3 K Low phos, 4. If off vent on hemo dialysis, pass speech eval, offer Renal Standard 2 gNa 3 K, Low Phos diet. Expected Outcomes/Goals: advance to diet able to eat independently. IAM GRIER MD Aug 21, 2024 11:49
[2024-08-21] MEDS ORDERED: ACCU-CHEK COMFORT CURVE STRIP VI SCH (12:00)
[2024-08-21] MEDS ORDERED: InsuLIN REG 1unit/0.01ml Soln (100units/ml) SC SCH (12:00)
[2024-08-21] MEDS: ACCU-CHEK COMFORT CURVE STRIP VI SCH (12:09)
[2024-08-21] MEDS: InsuLIN REG 1unit/0.01ml Soln (100units/ml) SC SCH (12:09)
[2024-08-21] MEDS: TPN PER PHARMACY IV NR (22:24)
--- NOTE | 2024-08-21 23:45 | DVHPN2 ---
Progress Note - Dictate Date Seen: Aug 21, 2024 Medical Necessity Reason Pt with a Central, PICC or Fol: Yes The following are medically ne: Powell Catheter Reason for powell catheter: Strict I&O Subjective Patient seen and examined at bedside. Breathing on room air. Overnight events reviewed. vital signs Vital Sign Date Time Temp Pulse Resp B/P (MAP) Pulse Ox O2 Delivery O2 Flow Rate FiO2 08/21/24 23:00 92 16 116/56 (76) 100 08/21/24 22:00 Room Air* 0 21 08/21/24 20:00 99.4 99.4 Total Intake and Output 08/20/24 08/20/24 08/21/24 15:00 23:00 07:00 Intake Total 1100.625 ml 1171.9659 ml 1223.000 ml Output Total 1050 ml 1550 ml Balance 1100.625 ml 121.9659 ml -327.000 ml medications Current Medications Medications Dose Ordered Sig/Akiko Route Start Time Stop Time Status Last Admin Dose Admin Vancomycin HCl 200 ml @ 200 mls/hr Q12HR IV 08/10/24 22:00 UNV Pantoprazole Sodium 40 mg DAILY IV 08/11/24 10:00 08/21/24 10:22 40 MG Acetaminophen 650 mg Q6HP PRN [place] 08/10/24 23:30 08/11/24 01:13 650 MG Norepinephrine Bitartrate 16 mg/ Sodium Chloride 250 ml @ 1.875 mls/ hr Q24H IV 08/11/24 18:30 08/21/24 18:25 9.375 MLS/HR Enteral Nutritional Formula 240 ml 50ML/HR GT 08/12/24 12:00 Enoxaparin Sodium 80 mg Q12H SC 08/14/24 12:30 08/21/24 12:08 80 MG Amino Acids 0 ml @ 0 mls/hr PER PHARMACY IV 08/16/24 12:45 Morphine Sulfate 1 mg Q3HP PRN IV 08/17/24 11:00 08/21/24 19:58 1 MG Piperacillin Sod/ Tazobactam Sod 100 ml @ 25 mls/hr Q8HR IV 08/18/24 14:00 08/21/24 22:01 25 MLS/HR Lactated Ringer's 1,000 ml @ 50 mls/hr Q20H IV 08/19/24 08:00 08/21/24 20:44 50 MLS/HR Enteral Nutritional Formula 240 ml TIDWM PO 08/20/24 18:00 08/21/24 17:47 240 ML Enteral Nutritional Formula 28.8 gm BIDBM PO 08/21/24 10:00 08/21/24 08:54 28.8 GM Insulin Glargine 10 units DAILY@1000 SC 08/21/24 10:00 08/21/24 10:27 10 UNITS Diagnostic Test (Pha) 1 strip Q6HR 08/21/24 12:00 08/21/24 17:49 1 STRIP Insulin Human Regular Q6HR SC 08/21/24 12:00 08/21/24 17:47 2 UNITS Dextrose 50 ml UD PRN IV 08/21/24 09:30 Acetaminophen 650 mg Q6HP PRN PO 08/21/24 12:00 Diagnostic Test (Pha) 1 strip Q6HR 08/21/24 12:00 Cancel Insulin Human Regular FOLLOW SLIDING SCALE Q6HR SC 08/21/24 12:00 Cancel Dextrose 50 ml UD IV 08/21/24 10:00 Cancel Fat Emulsion Intravenous 100 ml/Potassium Acetate 30 meq/ Potassium Phosphate 66 meq/ Magnesium Sulfate 14 meq/ Multivitamins 10 ml/Insulin Human Regular 4 units/ Amino Acids/ Dextrose/Purified Water 1,743.54 ml @ 73 mls/hr [id number] IV 08/21/24 22:00 08/22/24 21:59 08/21/24 22:24 73 MLS/HR objective Gen.: Patient lying in bed in no apparent distress. Breathing on room air. Head: Normocephalic, atraumatic. Eyes: EOMI/PERRLA. Ears: Normal hearing. Normal anatomy. Neck/trachea: Trachea midline, supple. Nose: Normal external anatomy. Mouth: Moist mucous membranes. Chest: Decreased air entry bilaterally. No wheezing or rhonchi. Cardiovascular: Positive S1, positive S2. Regular rate and rhythm. Abdomen: Positive bowel sounds in all 4 quadrants. Soft, non-tender, non- distended. : Deferred. Rectal: Deferred. Skin: Warm, dry. Intact. Extremities: 2+ radial pulses bilaterally. No lower extremity edema. Neuro: Awake, alert, oriented x3. No gross motor or sensory deficits. Cranial nerves II through XII intact. Gait not assessed. laboratory and microbiology Laboratory Tests 08/21/24 04:10 Test 08/21/24 04:10 Range/Units Serum Glucose 278 H 74-106 mg/dL Assessment/Plan Impression: Acute hypoxic respiratory failure Leukocytosis Hypernatremia Parkinson's disease Acute metabolic encephalopathy Decubitus ulcers Sepsis Rhabdomyolysis Acute kidney injury Events: Remains on room air. No respiratory distress. On pressors for hemodynamic support On Levophed at 6 mcg/min Titrate to keep mean arterial pressure greater than 65 mmHg.. Accu-Cheks for glycemic monitoring TPN for nutritional support. Patient is on Puree Diet. Continue antibiotics IV fluids with LR 50 ml/hr. Monitor renal function. Monitor electrolytes. Supplement as necessary. Monitor sodium Wound debridement Wound care Head of bed elevation Aspiration precautions Labs and imaging reviewed. Rest of plan as noted below. Plan: S/p extubation 08/15/24 Breathing on room air. Supplemental O2 PRN. CT head: No acute intracranial hemorrhage or stroke. Pressors for hemodynamic support. Titrate to keep MAP above 65 mmHg/SBP above 90 mmHg. Antibiotics. Monitor renal function due to Acute kidney injury. Monitor electrolytes. Supplement as necessary. Monitor sodium due to hypernatremia, Na 153 on 08/17/24 IV fluid hydration Do not over correct sodium. Nutritional support. Accu-Cheks, ISS. GI prophylaxis - Protonix DVT prophylaxis. Condition: Critical Prognosis: Poor given multiple comorbidities. Rest of plan per hospitalist and other consultants. A total of 35 minutes of critical care time was spent reviewing the patient record, examining the patient, making a diagnostic and therapeutic plan, discussing this plan with the medical personnel, following up on diagnostic studies and following the patient for clinical stability excluding any and all procedures. At least 50% of this time was spent in direct, [id number] contact. Thank you Dr. Newman for allowing me to participate in this patient's care. Further recommendations will depend on patient's clinical course. Please do not hesitate to contact me if you have any questions or concerns. This medical document was created using an electronic medical record system with [employer] system. Although this document has been carefully reviewed, there may still be some phonetic and typographical errors. These areas are purely typographical due to imperfections of the software programs, and do not reflect any compromise in the patient's medical care. Dietary Evaluation Review Comments: 1. If on Vent Consider Nepro 30ml/hr x 24 hr,( 58g pro 1274 kcal). this will support pt's needs at 100% protein, 94 % kcal. 2. If EN not possible, and NPO > 7 days, consider TPN per pharmacy. 3. If off Vent, and pass speech eval, offer Renal Specific -50g protein 2g Na 3 K Low phos, 4. If off vent on hemo dialysis, pass speech eval, offer Renal Standard 2 gNa 3 K, Low Phos diet. Expected Outcomes/Goals: advance to diet able to eat independently. Plan discussed with: Other (RN Myara) Critical Care Time(min): 35 REY REAGAN MD Aug 21, 2024 23:45
[2024-08-22] VITALS (99 sets, daily range): BP systolic 75–136; BP diastolic 21–68; PULSE 74–105; RESP 10–30; TEMP 98.3–99.5; O2SAT 100
[2024-08-22 04:21] LABS: Basophils # (auto) 0 10 ^3/uL (0-0.2); Basophils % (auto) 0.6 % (0.0-2.0); Eosinophils # (auto) 0.1 10 ^3/uL (0-0.8); Eosinophils % (auto) 1.8 % (0.0-7.0); Hematocrit 29.8 % (41.0-53.0); Hemoglobin 10.3 g/dL (13.5-17.5); Lymphocytes # (auto) 0.9 10 ^3/uL (0.4-5.4); Lymphocytes % (auto) 12.1 % (10.0-50.0); Mean Corpuscular Hemoglobin 30.5 pg (28.0-32.0); Mean Corpuscular Hgb Conc. 34.5 g/dL (32.0-36.0); Mean Corpuscular Volume 88.5 fL (80.0-100.0); Monocytes # (auto) 0.3 10 ^3/uL (0-1.3); Monocytes % (auto) 4.2 % (0.0-12.0); Neutrophils # (auto) 5.8 10 ^3/uL (1.6-8.6); Neutrophils % (auto) 81.3 % (37.0-80.0); Platelet Count (auto) 226 10^3/uL (140-450); Red Blood Cells 3.37 10^6/uL (4.5-5.90); White Blood Cell 7.2 10^3/uL (4.4-10.8)
[2024-08-22 04:33] LABS: Anion Gap 4 (5-15); BUN/Creatinine Ratio 35.5 (10.0-20.0); Carbon Dioxide 28 mmol/L (20-31); Potassium 3.9 mmol/L (3.5-5.1); Triglycerides 67 mg/dL (< 150)
[2024-08-22 04:34] LABS: Phosphorus 2.9 mg/dL (2.4-5.1); Total Protein 5.9 g/dL (5.7-8.2)
[2024-08-22 04:39] LABS: Alanine Aminotransferase 150 U/L (7-40); Albumin 2.9 g/dL (3.2-4.8); Alkaline Phosphatase 194 U/L (46-116); Aspartate Aminotransferase 78 U/L (13-40); Bilirubin, Total 1.3 mg/dL (0.2-1.0); Blood Urea Nitrogen 33 mg/dL (9-23); Calcium 8.5 mg/dL (8.7-10.4); Chloride 113 mmol/L (98-107); Glucose 203 mg/dL (74-106); Sodium 145 mmol/L (136-145)
[2024-08-22] MEDS: NOREPINEPHRINE BITARTRATE 16 MG in SODIUM CHL 0.9% 234 ML IV SCH (14:00)
[2024-08-22] MEDS: CARBIDOPA W LEVODOPA 25/100mg TABLET PO ONE (14:15)
[2024-08-22] MEDS: THIAMINE 100mg/ml INJ (200mg/2ml VIAL) IV ONE (14:15)
--- NOTE | 2024-08-22 14:18 | DVHPN2 ---
Subjective Follow commands Alert and oriented Still on Levophed drip Reviewed: Care Plan, H&P, Labs, Medications, Previous Orders, Radiology, Other (Consultants) Changes from previous H/P or p: Changes General: Per HPI Objective Vitals Vital Signs Date Time Temp Pulse Resp B/P (MAP) Pulse Ox O2 Delivery O2 Flow Rate FiO2 08/22/24 13:56 93 08/22/24 13:56 17 100 Room Air* 0 21 08/22/24 12:00 98.6 89/40 (56) 98.6 Intake/Output Intake and Output 08/22/24 07:00 Intake Total 3934.500 ml Output Total 4425 ml Balance -490.500 ml Intake Oral 680 ml IV Total 3254.500 ml Output Urine Total 4425 ml # Bowel Movements 5 General Appearance: Alert, Oriented X3, Cooperative, No acute distress HEENT: Atraumatic Lungs: Clear to auscultation, Normal air movement Cardiovascular: Regular rate, Normal S1, Normal S2 Abdomen: Normal bowel sounds, Soft, No tenderness Extremities: Other (Some bilateral lower extremities edema) Skin: Wounds (Upper back) Medications Current Medications Medications Dose Ordered Sig/Akiko Route Start Time Stop Time Status Last Admin Dose Admin Vancomycin HCl 200 ml @ 200 mls/hr Q12HR IV 08/10/24 22:00 UNV Pantoprazole Sodium 40 mg DAILY IV 08/11/24 10:00 08/22/24 10:00 40 MG Acetaminophen 650 mg Q6HP PRN DE 08/10/24 23:30 08/11/24 01:13 650 MG Enteral Nutritional Formula 240 ml 50ML/HR GT 08/12/24 12:00 Enoxaparin Sodium 80 mg Q12H SC 08/14/24 12:30 08/22/24 12:56 80 MG Amino Acids 0 ml @ 0 mls/hr PER PHARMACY IV 08/16/24 12:45 Morphine Sulfate 1 mg Q3HP PRN IV 08/17/24 11:00 08/22/24 10:24 1 MG Piperacillin Sod/ Tazobactam Sod 100 ml @ 25 mls/hr Q8HR IV 08/18/24 14:00 08/22/24 05:37 25 MLS/HR Lactated Ringer's 1,000 ml @ 50 mls/hr Q20H IV 08/19/24 08:00 08/21/24 20:44 50 MLS/HR Enteral Nutritional Formula 240 ml TIDWM PO 08/20/24 18:00 08/22/24 11:18 240 ML Enteral Nutritional Formula 28.8 gm BIDBM PO 08/21/24 10:00 08/22/24 13:22 28.8 GM Insulin Glargine 10 units DAILY@1000 SC 08/21/24 10:00 08/22/24 10:00 10 UNITS Diagnostic Test (Pha) 1 strip Q6HR 08/21/24 12:00 08/22/24 12:00 1 STRIP Insulin Human Regular Q6HR SC 08/21/24 12:00 08/22/24 12:00 3 UNITS Dextrose 50 ml UD PRN IV 08/21/24 09:30 Acetaminophen 650 mg Q6HP PRN PO 08/21/24 12:00 Diagnostic Test (Pha) 1 strip Q6HR 08/21/24 12:00 Cancel Insulin Human Regular FOLLOW SLIDING SCALE Q6HR SC 08/21/24 12:00 Cancel Dextrose 50 ml UD IV 08/21/24 10:00 Cancel Fat Emulsion Intravenous 100 ml/Potassium Acetate 30 meq/ Potassium Phosphate 66 meq/ Magnesium Sulfate 14 meq/ Multivitamins 10 ml/Insulin Human Regular 4 units/ Amino Acids/ Dextrose/Purified Water 1,743.54 ml @ 73 mls/hr [id number] IV 08/21/24 22:00 08/22/24 21:59 08/21/24 22:24 73 MLS/HR Fat Emulsion Intravenous 100 ml/Potassium Acetate 20 meq/ Potassium Phosphate 66 meq/ Magnesium Sulfate 14 meq/ Multivitamins 10 ml/Insulin Human Regular 6 units/ Chromium/Copper/ Manganese/Seleni/ Zn 1 ml/Amino Acids/Dextrose/ Purified Water 1,739.56 ml @ 72 mls/hr [id number] IV 08/22/24 22:00 08/23/24 21:59 Norepinephrine Bitartrate 16 mg/ Sodium Chloride 250 ml @ 0.938 mls/ hr Q24H IV 08/22/24 14:00 UNV Laboratory Results Laboratory Tests 08/22/24 03:05 Chemistry Test 08/22/24 03:05 Albumin 2.9 g/dL (3.2-4.8) L Calcium Level 8.5 mg/dL (8.7-10.4) L Magnesium Level 2.0 mg/dL (1.6-2.6) Phosphorus Level 2.9 mg/dL (2.4-5.1) Total Protein 5.9 g/dL (5.7-8.2) Lipid panel Test 08/22/24 03:05 Triglycerides Level 67 mg/dL (< 150) LFT Test 08/22/24 03:05 Alanine Aminotransferase (ALT) 150 U/L (7-40) H Alkaline Phosphatase 194 U/L (46-116) H Aspartate Amino Transferase (AST) 78 U/L (13-40) H Total Bilirubin 1.3 mg/dL (0.2-1.0) H Urinalysis Test 08/11/24 13:02 Urine Color Yellow (Yellow) Urine Clarity Turbid (Clear) H Urine pH 5.5 (5.0-9.0) Urine Specific [place] 1.018 (1.001-1.035) Urine Protein 1+ (Negative) H Urine Ketones Negative (Negative) Urine Blood 3+ /uL (Negative) H Urine Nitrite Negative (Negative) Urine Bilirubin Negative (Negative) Urine Urobilinogen 4 mg/dL (Negative) H Urine Leukocyte Esterase 1+ /uL (Negative) Urine RBC 13 /hpf (0 - 3) Urine WBC 14 /hpf (0 - 3) Urine Squamous Epithelial Cells Few /hpf (<5) Urine Bacteria Few /hpf (None Seen) H Urine Hyaline Casts Few /lpf (0 - 2) Urine Granular Casts Few /lpf (0) Urine Mucus Few (None Seen) Urine Creatinine 67.44 mg/dL (30.0-125.0) Urine Protein/Creatinine Ratio 1.00 Urine Sodium 32 mmol/L (40-220) L Urine Glucose Normal mg/dL (Normal) Urine Total Protein 67.3 mg/dL (1-14) H Microbiology Microbiology Date/Time Source Procedure Growth Status 08/13/24 11:10 Nose MRSA Screen - Final Complete 08/12/24 19:02 Bronchial Washings Gram Stain - Final Resulted 08/12/24 19:02 Respiratory Culture - Preliminary Klebsiella pneumoniae Presumptive Ema albicans Resulted 08/10/24 14:08 Blood Blood Culture - Final NO GROWTH AFTER 5 DAYS OF INCUBATION. Complete Assessment/Plan Assessment/Plan Acute hypoxic respiratory failure, Metabolic encephalopathy, Sepsis with septic shock Severe hypernatremia Severe dehydration DAYLIN due to vasomotor nephropathy Rhabdomyolysis Parkinson's disease Decubitus ulcer RLE DVT PLAN: Parkinson's Disease: Resume Sinemet Sepsis with hypotension: Levophed drip, taper down as tolerated Hypernatremia: Better, continue TPN and IV fluids Protein malnutrition: Protein supplement Left buttock and sacral decubitus ulcers: Get wound cultures, IV antibiotics: Zosyn DAYLIN: Better, continue IV fluids DVT: Lovenox Add thiamine IV Check B12 and Folic acid and ammonia Plan discussed with: Patient, Other My Orders Orders - JELENA GAINES MD Procedure Category Date Status Time Amino Acid PHA 08/22/24 In Process Infusion... W/Fat 22:00 Comprehensive LAB 08/23/24 Verified Metabolic Panel 04:00 Magnesium LAB 08/23/24 Verified 04:00 Phosphorus LAB 08/23/24 Verified 04:00 Tpn Per Pharmacy JOHN 08/22/24 In Process 22:00 Sodium Chl 0.9% PHA 08/22/24 Logged (Ns... 14:00 Carbidopa W Levodopa PHA 08/22/24 Logged 25/100mg (Sinemet 2 22:00 Carbidopa W Levodopa PHA 08/22/24 Logged 25/100mg (Sinemet 2 14:15 Date of Service: Aug 22, 2024 Billing Provider: JELENA GAINES MD Common Visit Codes: NOT BILLABLE JELENA GAINES MD Aug 22, 2024 14:18
--- NOTE | 2024-08-22 19:41 | DVHPN2 ---
Progress Note - Dictate Date Seen: Aug 22, 2024 Medical Necessity Reason Pt with a Central, PICC or Fol: Yes The following are medically ne: Powell Catheter Reason for powell catheter: Strict I&O Subjective Mr. Howard is a 78 years old right-handed gentleman with a history of Parkinson's disease, the patient was admitted on 08/10 24 with a chief company of altered mental status I have seen in the ICU and examined the patient, I have discussed with his nurse, he is doing better today, awake, oriented to person, place, he knows year, socially fine His speech is fine, a smell tremor in the left hand, He has not received Sinemet since he came to the hospital Respiratory culture, 08/12/2024: Klebsiella pneumoniae Blood culture, 08/10/24: Negative UDS, 08/10/2024: Negative Urinalysis, 08/10/2024: WBC 10, urine leukocyte: Trace WBC/HB/PLT/MCV, 08/20/24: 6.5/10.5/205/88.8 PT/INR/PTT, 08/14/2024: 13.9/1.34/30.9 Na, 08/10/2024: 170, 168, 08/11/2024: 165, 08/12/2024: 164, 08/13/2024: 161, 08/14/2024: 156, 08/19/2024: 149, 08/20/24: 149 BUN/CR, 08/18/2024: 45/1.01, 08/20/2024: 42/1.07 TBI/AST/ALT/AP, 08/20/2024: 1.4/148/210/179 Hepatitis panel, 08/11/2024: Negative TSH, 08/11/2024: 4.48 Venous Doppler, lower extremities, 08/13/2024: No left DVT. Positive DVT involving the right lower extremity common femoral vein, femoral vein, popliteal vein and calf Chest x-ray, 08/10/2024: No acute cardiopulmonary disease. Elevation of the left hemidiaphragm. Enteric tube and endotracheal tube are in satisfactory position Chest x-ray, 08/21/2024: Increased congestion CT head, 08/10/2024: 1. No acute intracranial hemorrhage, midline shift or mass effect. 2. Generalized brain atrophy. 3. Small vessel ischemic/degenerative changes. 4. If symptoms persists, further evaluation with MRI is recommended MRI head, 08/19/2024: 1. No evidence of acute intracranial abnormality. 2. Motion limited study vital signs Vital Sign Date Time Temp Pulse Resp B/P (MAP) Pulse Ox O2 Delivery O2 Flow Rate FiO2 08/22/24 18:15 98.6 102 18 108/47 (67) 100 98.6 08/22/24 17:37 Room Air* 0 21 Total Intake and Output 08/21/24 08/21/24 08/22/24 15:00 23:00 07:00 Intake Total 1293.625 ml 1311.875 ml 1329.000 ml Output Total 1225 ml 3200 ml Balance 1293.625 ml 86.875 ml -1871.000 ml medications Current Medications Medications Dose Ordered Sig/Akiko Route Start Time Stop Time Status Last Admin Dose Admin Vancomycin HCl 200 ml @ 200 mls/hr Q12HR IV 08/10/24 22:00 UNV Pantoprazole Sodium 40 mg DAILY IV 08/11/24 10:00 08/22/24 10:00 40 MG Acetaminophen 650 mg Q6HP PRN RI 08/10/24 23:30 08/11/24 01:13 650 MG Enteral Nutritional Formula 240 ml 50ML/HR GT 08/12/24 12:00 Enoxaparin Sodium 80 mg Q12H SC 08/14/24 12:30 08/22/24 12:56 80 MG Amino Acids 0 ml @ 0 mls/hr PER PHARMACY IV 08/16/24 12:45 Morphine Sulfate 1 mg Q3HP PRN IV 08/17/24 11:00 08/22/24 10:24 1 MG Piperacillin Sod/ Tazobactam Sod 100 ml @ 25 mls/hr Q8HR IV 08/18/24 14:00 08/22/24 14:00 25 MLS/HR Lactated Ringer's 1,000 ml @ 50 mls/hr Q20H IV 08/19/24 08:00 08/22/24 16:00 50 MLS/HR Enteral Nutritional Formula 240 ml TIDWM PO 08/20/24 18:00 08/22/24 17:05 240 ML Enteral Nutritional Formula 28.8 gm BIDBM PO 08/21/24 10:00 08/22/24 13:22 28.8 GM Insulin Glargine 10 units DAILY@1000 SC 08/21/24 10:00 08/22/24 10:00 10 UNITS Diagnostic Test (Pha) 1 strip Q6HR 08/21/24 12:00 08/22/24 17:05 1 STRIP Insulin Human Regular Q6HR SC 08/21/24 12:00 08/22/24 17:31 4 UNITS Dextrose 50 ml UD PRN IV 08/21/24 09:30 Acetaminophen 650 mg Q6HP PRN PO 08/21/24 12:00 Diagnostic Test (Pha) 1 strip Q6HR 08/21/24 12:00 Cancel Insulin Human Regular FOLLOW SLIDING SCALE Q6HR SC 08/21/24 12:00 Cancel Dextrose 50 ml UD IV 08/21/24 10:00 Cancel Fat Emulsion Intravenous 100 ml/Potassium Acetate 30 meq/ Potassium Phosphate 66 meq/ Magnesium Sulfate 14 meq/ Multivitamins 10 ml/Insulin Human Regular 4 units/ Amino Acids/ Dextrose/Purified Water 1,743.54 ml @ 73 mls/hr [id number] IV 08/21/24 22:00 08/22/24 21:59 08/21/24 22:24 73 MLS/HR Fat Emulsion Intravenous 100 ml/Potassium Acetate 20 meq/ Potassium Phosphate 66 meq/ Magnesium Sulfate 14 meq/ Multivitamins 10 ml/Insulin Human Regular 6 units/ Chromium/Copper/ Manganese/Seleni/ Zn 1 ml/Amino Acids/Dextrose/ Purified Water 1,739.56 ml @ 72 mls/hr [id number] IV 08/22/24 22:00 08/23/24 21:59 Norepinephrine Bitartrate 16 mg/ Sodium Chloride 250 ml @ 0.938 mls/ hr Q24H IV 08/22/24 14:00 08/22/24 14:00 0.938 MLS/HR Carbidopa/Levodopa 1 tab TID PO 08/22/24 22:00 Thiamine HCl 100 mg DAILY IV 08/23/24 10:00 Melatonin 3 mg HS PO 08/22/24 22:00 objective General: the patient is well developed and nourished. No acute distress. MUSCULOSKELETAL EXAM: Pressure sores MENTAL STATUS: Awake, oriented to person place SPEECH, LANGUAGE, HIGHER CORTICAL FUNCTION: no aphasia or dysathria. CRANIAL NERVES: Pupils are equal, round and reactive. EOMs full and conjugate. No nystagmus. Facial sensation intact in all three divisions bilaterally. Mandibular strength intact. Facial muscles symmetrical and strength intact. SENSATION: Sensation to touch and pinprick is Ok MOTOR: Normal tone in the upper and lower extremity. Normal muscle bulk. No fasciculations. Mild tremor in the left hand, possible cogwheeling in both wrists. He moves the arms a little bit, REFLEXES: Deep tendon reflexes normal and symmetrical. No pathological reflexes. CEREBELLAR/COORDINATION: Deferred GAIT/STATION: deferred laboratory and microbiology Laboratory Tests 08/22/24 03:05 Test 08/22/24 03:05 Range/Units Serum Glucose 203 H 74-106 mg/dL Problem List Altered mental status/metabolic encephalopathy secondary to Sepsis Septic shock Respiratory failure Urinary tract infection Dehydration Acute kidney failure Hypernatremia Rhabdomyolysis Left-handed tremors, gait disturbance, low voice Parkinson's disease Rule out essential tremor Pressure sores Assessment/Plan Monitoring Supportive treatment ICU care Respiratory support p.r.n. Stabilize vitals p.r.n. Oxygen IV antiepileptics Hydration Hold off Sinemet for now Wound care DVT prophylaxis GI prophylaxis Pulmonary on case Nephrology on case Surgery on case More recommendation per clinical course This medical document was created using an electronic medical record system with [employer] dictation system. Although this document has been carefully reviewed, there may still be some phonetic and typographical errors. These areas are purely typographical due to imperfections of the software programs, and do not reflect any compromise in the patient's medical care Prognosis poor Dietary Evaluation Review Comments: 1. If on Vent Consider Nepro 30ml/hr x 24 hr,( 58g pro 1274 kcal). this will support pt's needs at 100% protein, 94 % kcal. 2. If EN not possible, and NPO > 7 days, consider TPN per pharmacy. 3. If off Vent, and pass speech eval, offer Renal Specific -50g protein 2g Na 3 K Low phos, 4. If off vent on hemo dialysis, pass speech eval, offer Renal Standard 2 gNa 3 K, Low Phos diet. Expected Outcomes/Goals: advance to diet able to eat independently. Plan discussed with: Other Critical Care Time(min): 35 EVELINE HUNTER MD Aug 22, 2024 19:41
[2024-08-22] MEDS: CARBIDOPA W LEVODOPA 25/100mg TABLET PO SCH (22:00)
[2024-08-22] MEDS: MELATONIN 5 MG TAB PO SCH (22:30)
[2024-08-22] MEDS: TPN PER PHARMACY IV NR (22:32)
--- NOTE | 2024-08-22 22:55 | DVHPN2 ---
Progress Note - Dictate Date Seen: Aug 22, 2024 Medical Necessity Reason Pt with a Central, PICC or Fol: Yes The following are medically ne: Powell Catheter Reason for powell catheter: Strict I&O Subjective Patient seen and examined at bedside. Breathing on room air. Overnight events reviewed. vital signs Vital Sign Date Time Temp Pulse Resp B/P (MAP) Pulse Ox O2 Delivery O2 Flow Rate FiO2 08/22/24 18:15 98.6 102 18 108/47 (67) 100 98.6 08/22/24 17:37 Room Air* 0 21 Total Intake and Output 08/21/24 08/21/24 08/22/24 15:00 23:00 07:00 Intake Total 1293.625 ml 1311.875 ml 1329.000 ml Output Total 1225 ml 3200 ml Balance 1293.625 ml 86.875 ml -1871.000 ml medications Current Medications Medications Dose Ordered Sig/Akiko Route Start Time Stop Time Status Last Admin Dose Admin Vancomycin HCl 200 ml @ 200 mls/hr Q12HR IV 08/10/24 22:00 UNV Pantoprazole Sodium 40 mg DAILY IV 08/11/24 10:00 08/22/24 10:00 40 MG Acetaminophen 650 mg Q6HP PRN IA 08/10/24 23:30 08/11/24 01:13 650 MG Enteral Nutritional Formula 240 ml 50ML/HR GT 08/12/24 12:00 Enoxaparin Sodium 80 mg Q12H SC 08/14/24 12:30 08/22/24 12:56 80 MG Amino Acids 0 ml @ 0 mls/hr PER PHARMACY IV 08/16/24 12:45 Morphine Sulfate 1 mg Q3HP PRN IV 08/17/24 11:00 08/22/24 10:24 1 MG Piperacillin Sod/ Tazobactam Sod 100 ml @ 25 mls/hr Q8HR IV 08/18/24 14:00 08/22/24 22:29 25 MLS/HR Lactated Ringer's 1,000 ml @ 50 mls/hr Q20H IV 08/19/24 08:00 08/22/24 16:00 50 MLS/HR Enteral Nutritional Formula 240 ml TIDWM PO 08/20/24 18:00 08/22/24 17:05 240 ML Enteral Nutritional Formula 28.8 gm BIDBM PO 08/21/24 10:00 08/22/24 13:22 28.8 GM Insulin Glargine 10 units DAILY@1000 SC 08/21/24 10:00 08/22/24 10:00 10 UNITS Diagnostic Test (Pha) 1 strip Q6HR 08/21/24 12:00 08/22/24 17:05 1 STRIP Insulin Human Regular Q6HR SC 08/21/24 12:00 08/22/24 17:31 4 UNITS Dextrose 50 ml UD PRN IV 08/21/24 09:30 Acetaminophen 650 mg Q6HP PRN PO 08/21/24 12:00 Diagnostic Test (Pha) 1 strip Q6HR 08/21/24 12:00 Cancel Insulin Human Regular FOLLOW SLIDING SCALE Q6HR SC 08/21/24 12:00 Cancel Dextrose 50 ml UD IV 08/21/24 10:00 Cancel Fat Emulsion Intravenous 100 ml/Potassium Acetate 20 meq/ Potassium Phosphate 66 meq/ Magnesium Sulfate 14 meq/ Multivitamins 10 ml/Insulin Human Regular 6 units/ Chromium/Copper/ Manganese/Seleni/ Zn 1 ml/Amino Acids/Dextrose/ Purified Water 1,739.56 ml @ 72 mls/hr [id number] IV 08/22/24 22:00 08/23/24 21:59 08/22/24 22:32 72 MLS/HR Norepinephrine Bitartrate 16 mg/ Sodium Chloride 250 ml @ 0.938 mls/ hr Q24H IV 08/22/24 14:00 08/22/24 14:00 0.938 MLS/HR Carbidopa/Levodopa 1 tab TID PO 08/22/24 22:00 Thiamine HCl 100 mg DAILY IV 08/23/24 10:00 Melatonin 3 mg HS PO 08/22/24 22:00 08/22/24 22:30 3 MG objective Gen.: Patient lying in bed in no apparent distress. Breathing on room air. Head: Normocephalic, atraumatic. Eyes: EOMI/PERRLA. Ears: Normal hearing. Normal anatomy. Neck/trachea: Trachea midline, supple. Nose: Normal external anatomy. Mouth: Moist mucous membranes. Chest: Decreased air entry bilaterally. No wheezing or rhonchi. Cardiovascular: Positive S1, positive S2. Regular rate and rhythm. Abdomen: Positive bowel sounds in all 4 quadrants. Soft, non-tender, non- distended. : Deferred. Rectal: Deferred. Skin: Warm, dry. Intact. Extremities: 2+ radial pulses bilaterally. No lower extremity edema. Neuro: Awake, alert, oriented x3. No gross motor or sensory deficits. Cranial nerves II through XII intact. Gait not assessed. laboratory and microbiology Laboratory Tests 08/22/24 03:05 Test 08/22/24 03:05 Range/Units Serum Glucose 203 H 74-106 mg/dL Assessment/Plan Impression: Acute hypoxic respiratory failure Leukocytosis Hypernatremia Parkinson's disease Acute metabolic encephalopathy Decubitus ulcers Sepsis Rhabdomyolysis Acute kidney injury Events: Remains on room air. No respiratory distress. On pressors for hemodynamic support On Levophed at 2 mcg/min Titrate to keep mean arterial pressure greater than 65 mmHg.. Improving pressor requirements Accu-Cheks for glycemic monitoring TPN for nutritional support. Patient is on Puree Diet. Continue antibiotics IV fluids with LR 50 ml/hr. Monitor renal function. Monitor electrolytes. Supplement as necessary. Monitor sodium Wound debridement Wound care Head of bed elevation Aspiration precautions Labs and imaging reviewed. Rest of plan as noted below. Plan: S/p extubation 08/15/24 Breathing on room air. Supplemental O2 PRN. CT head: No acute intracranial hemorrhage or stroke. Pressors for hemodynamic support. Titrate to keep MAP above 65 mmHg/SBP above 90 mmHg. Antibiotics. Monitor renal function due to Acute kidney injury. Monitor electrolytes. Supplement as necessary. Monitor sodium due to hypernatremia, Na 153 on 08/17/24 IV fluid hydration Do not over correct sodium. Nutritional support. Accu-Cheks, ISS. GI prophylaxis - Protonix DVT prophylaxis. Condition: Critical Prognosis: Poor given multiple comorbidities. Rest of plan per hospitalist and other consultants. A total of 35 minutes of critical care time was spent reviewing the patient record, examining the patient, making a diagnostic and therapeutic plan, discussing this plan with the medical personnel, following up on diagnostic studies and following the patient for clinical stability excluding any and all procedures. At least 50% of this time was spent in direct, [id number] contact. Thank you Dr. Newman for allowing me to participate in this patient's care. Further recommendations will depend on patient's clinical course. Please do not hesitate to contact me if you have any questions or concerns. This medical document was created using an electronic medical record system with [employer] dictation system. Although this document has been carefully reviewed, there may still be some phonetic and typographical errors. These areas are purely typographical due to imperfections of the software programs, and do not reflect any compromise in the patient's medical care. Dietary Evaluation Review Comments: 1. If on Vent Consider Nepro 30ml/hr x 24 hr,( 58g pro 1274 kcal). this will support pt's needs at 100% protein, 94 % kcal. 2. If EN not possible, and NPO > 7 days, consider TPN per pharmacy. 3. If off Vent, and pass speech eval, offer Renal Specific -50g protein 2g Na 3 K Low phos, 4. If off vent on hemo dialysis, pass speech eval, offer Renal Standard 2 gNa 3 K, Low Phos diet. Expected Outcomes/Goals: advance to diet able to eat independently. Plan discussed with: Other (SRAVANI Zuleta) Critical Care Time(min): 35 REY REAGAN MD Aug 22, 2024 22:55
[2024-08-23] VITALS (97 sets, daily range): BP systolic 78–129; BP diastolic 35–61; PULSE 83–97; RESP 7–26; TEMP 98.4–100.4; O2SAT 97–100
[2024-08-23 04:24] LABS: Basophils # (auto) 0 10 ^3/uL (0-0.2); Basophils % (auto) 0.4 % (0.0-2.0); Eosinophils # (auto) 0.1 10 ^3/uL (0-0.8); Eosinophils % (auto) 1.5 % (0.0-7.0); Hematocrit 27.3 % (41.0-53.0); Hemoglobin 9.1 g/dL (13.5-17.5); Lymphocytes # (auto) 0.8 10 ^3/uL (0.4-5.4); Lymphocytes % (auto) 14.1 % (10.0-50.0); Mean Corpuscular Hemoglobin 29.6 pg (28.0-32.0); Mean Corpuscular Hgb Conc. 33.3 g/dL (32.0-36.0); Mean Corpuscular Volume 88.8 fL (80.0-100.0); Monocytes # (auto) 0.3 10 ^3/uL (0-1.3); Monocytes % (auto) 4.8 % (0.0-12.0); Neutrophils # (auto) 4.6 10 ^3/uL (1.6-8.6); Neutrophils % (auto) 79.2 % (37.0-80.0); Platelet Count (auto) 208 10^3/uL (140-450); Red Blood Cells 3.08 10^6/uL (4.5-5.90); Red Cell Distribution Width 13.2 % (11.8-14.3); White Blood Cell 5.8 10^3/uL (4.4-10.8)
[2024-08-23 04:45] LABS: Anion Gap 5 (5-15); Bilirubin, Total 0.9 mg/dL (0.2-1.0); Carbon Dioxide 26 mmol/L (20-31); Folate (Folic Acid) 5.84 ng/mL (>5.38); Magnesium 2.1 mg/dL (1.6-2.6); Phosphorus 2.8 mg/dL (2.4-5.1); Potassium 3.8 mmol/L (3.5-5.1); Sodium 142 mmol/L (136-145)
[2024-08-23 04:49] LABS: Alanine Aminotransferase 104 U/L (7-40); Albumin 2.6 g/dL (3.2-4.8); Alkaline Phosphatase 180 U/L (46-116); Aspartate Aminotransferase 61 U/L (13-40); Blood Urea Nitrogen 35 mg/dL (9-23); Calcium 8.2 mg/dL (8.7-10.4); Chloride 111 mmol/L (98-107); Glucose 230 mg/dL (74-106); Total Protein 5.3 g/dL (5.7-8.2)
--- NOTE | 2024-08-23 08:12 | DVHPN2 ---
Subjective Follow commands Alert and oriented Still on Levophed drip No change Denies pain Reviewed: Care Plan, H&P, Labs, Medications, Previous Orders, Radiology, Other (Consultants) Changes from previous H/P or p: Changes General: Per HPI Objective Vitals Vital Signs Date Time Temp Pulse Resp B/P (MAP) Pulse Ox O2 Delivery O2 Flow Rate FiO2 08/23/24 06:37 88 18 117/51 08/23/24 04:00 100 Room Air* 0 21 08/23/24 00:00 98.6 98.6 Intake/Output Intake and Output 08/23/24 07:00 Intake Total 2199.127 ml Output Total 1300 ml Balance 899.127 ml Intake Oral 500 ml IV Total 1699.127 ml Output Urine Total 1300 ml General Appearance: Alert, Oriented X3, Cooperative, No acute distress HEENT: Atraumatic Lungs: Clear to auscultation, Normal air movement Cardiovascular: Regular rate, Normal S1, Normal S2 Abdomen: Normal bowel sounds, Soft, No tenderness Extremities: Other (Some bilateral lower extremities edema) Skin: Wounds (Upper back) Medications Current Medications Medications Dose Ordered Sig/Akiko Route Start Time Stop Time Status Last Admin Dose Admin Vancomycin HCl 200 ml @ 200 mls/hr Q12HR IV 08/10/24 22:00 UNV Pantoprazole Sodium 40 mg DAILY IV 08/11/24 10:00 08/22/24 10:00 40 MG Acetaminophen 650 mg Q6HP PRN MT 08/10/24 23:30 08/11/24 01:13 650 MG Enteral Nutritional Formula 240 ml 50ML/HR GT 08/12/24 12:00 Enoxaparin Sodium 80 mg Q12H SC 08/14/24 12:30 08/22/24 23:45 80 MG Amino Acids 0 ml @ 0 mls/hr PER PHARMACY IV 08/16/24 12:45 Morphine Sulfate 1 mg Q3HP PRN IV 08/17/24 11:00 08/23/24 05:43 1 MG Piperacillin Sod/ Tazobactam Sod 100 ml @ 25 mls/hr Q8HR IV 08/18/24 14:00 08/23/24 08:02 25 MLS/HR Lactated Ringer's 1,000 ml @ 50 mls/hr Q20H IV 08/19/24 08:00 08/22/24 16:00 50 MLS/HR Enteral Nutritional Formula 240 ml TIDWM PO 08/20/24 18:00 08/22/24 17:05 240 ML Enteral Nutritional Formula 28.8 gm BIDBM PO 08/21/24 10:00 08/22/24 13:22 28.8 GM Insulin Glargine 10 units DAILY@1000 SC 08/21/24 10:00 08/22/24 10:00 10 UNITS Diagnostic Test (Pha) 1 strip Q6HR 08/21/24 12:00 08/23/24 06:34 1 STRIP Insulin Human Regular Q6HR SC 08/21/24 12:00 08/23/24 06:35 3 UNITS Dextrose 50 ml UD PRN IV 08/21/24 09:30 Acetaminophen 650 mg Q6HP PRN PO 08/21/24 12:00 Diagnostic Test (Pha) 1 strip Q6HR 08/21/24 12:00 Cancel Insulin Human Regular FOLLOW SLIDING SCALE Q6HR SC 08/21/24 12:00 Cancel Dextrose 50 ml UD IV 08/21/24 10:00 Cancel Fat Emulsion Intravenous 100 ml/Potassium Acetate 20 meq/ Potassium Phosphate 66 meq/ Magnesium Sulfate 14 meq/ Multivitamins 10 ml/Insulin Human Regular 6 units/ Chromium/Copper/ Manganese/Seleni/ Zn 1 ml/Amino Acids/Dextrose/ Purified Water 1,739.56 ml @ 72 mls/hr [id number] IV 08/22/24 22:00 08/23/24 21:59 08/22/24 22:32 72 MLS/HR Norepinephrine Bitartrate 16 mg/ Sodium Chloride 250 ml @ 0.938 mls/ hr Q24H IV 08/22/24 14:00 08/22/24 14:00 0.938 MLS/HR Carbidopa/Levodopa 1 tab TID PO 08/22/24 22:00 Thiamine HCl 100 mg DAILY IV 08/23/24 10:00 Melatonin 3 mg HS PO 08/22/24 22:00 08/22/24 22:30 3 MG Laboratory Results Laboratory Tests 08/23/24 03:00 Chemistry Test 08/23/24 03:00 Albumin 2.6 g/dL (3.2-4.8) L Calcium Level 8.2 mg/dL (8.7-10.4) L Magnesium Level 2.1 mg/dL (1.6-2.6) Phosphorus Level 2.8 mg/dL (2.4-5.1) Total Protein 5.3 g/dL (5.7-8.2) L LFT Test 08/23/24 03:00 Alanine Aminotransferase (ALT) 104 U/L (7-40) H Alkaline Phosphatase 180 U/L (46-116) H Aspartate Amino Transferase (AST) 61 U/L (13-40) H Total Bilirubin 0.9 mg/dL (0.2-1.0) Urinalysis Test 08/11/24 13:02 Urine Color Yellow (Yellow) Urine Clarity Turbid (Clear) H Urine pH 5.5 (5.0-9.0) Urine Specific Trion 1.018 (1.001-1.035) Urine Protein 1+ (Negative) H Urine Ketones Negative (Negative) Urine Blood 3+ /uL (Negative) H Urine Nitrite Negative (Negative) Urine Bilirubin Negative (Negative) Urine Urobilinogen 4 mg/dL (Negative) H Urine Leukocyte Esterase 1+ /uL (Negative) Urine RBC 13 /hpf (0 - 3) Urine WBC 14 /hpf (0 - 3) Urine Squamous Epithelial Cells Few /hpf (<5) Urine Bacteria Few /hpf (None Seen) H Urine Hyaline Casts Few /lpf (0 - 2) Urine Granular Casts Few /lpf (0) Urine Mucus Few (None Seen) Urine Creatinine 67.44 mg/dL (30.0-125.0) Urine Protein/Creatinine Ratio 1.00 Urine Sodium 32 mmol/L (40-220) L Urine Glucose Normal mg/dL (Normal) Urine Total Protein 67.3 mg/dL (1-14) H Microbiology Microbiology Date/Time Source Procedure Growth Status 08/13/24 11:10 Nose MRSA Screen - Final Complete 08/12/24 19:02 Bronchial Washings Gram Stain - Final Resulted 08/12/24 19:02 Respiratory Culture - Preliminary Klebsiella pneumoniae Presumptive Ema albicans Resulted 08/10/24 14:08 Blood Blood Culture - Final NO GROWTH AFTER 5 DAYS OF INCUBATION. Complete Assessment/Plan Assessment/Plan Acute hypoxic respiratory failure, Metabolic encephalopathy, Sepsis with septic shock Severe hypernatremia Severe dehydration DAYLIN due to vasomotor nephropathy Rhabdomyolysis Parkinson's disease Decubitus ulcer RLE DVT PLAN: 08/22/24: Parkinson's Disease: Resume Sinemet Sepsis with hypotension: Levophed drip, taper down as tolerated Hypernatremia: Better, continue TPN and IV fluids Protein malnutrition: Protein supplement Left buttock and sacral decubitus ulcers: Get wound cultures, IV antibiotics: Zosyn DAYLIN: Better, continue IV fluids DVT: Lovenox Add thiamine IV Check B12 and Folic acid and ammonia 08/23/24: Add Midodrine 10 mg tid Advance diet to pureed Taper down the Levophed as tolerated Continue IV antibiotics We will stop TPN if he tolerates. Diet Once off the Levophed then we can downgrade from ICU Plan discussed with: Patient, Other My Orders Orders - JELENA GAINES MD Procedure Category Date Status Time Amino Acid PHA 08/22/24 In Process Infusion... W/Fat 22:00 Tpn Per Pharmacy JOHN 08/22/24 In Process 22:00 Sodium Chl 0.9% PHA 08/22/24 In Process (Ns... 14:00 Carbidopa W Levodopa PHA 08/22/24 In Process 25/100mg (Sinemet 2 22:00 Thiamine Inj PHA 08/23/24 In Process 10:00 Melatonin (Melatonin) PHA 08/22/24 In Process 22:00 Wound Culture W/ Gs SHERMAN 08/22/24 In Process 14:17 Wound Culture W/ Gs SHERMAN 08/22/24 In Process 15:26 Pureed DIET 08/23/24 Verified Breakfast Midodrine Tablet PHA 08/23/24 Verified (Proamatine Tablet) 12:00 Midodrine Tablet PHA 08/23/24 Verified (Proamatine Tablet) 08:15 Complete Blood Count LAB 08/24/24 Verified 04:00 Comprehensive LAB 08/24/24 Verified Metabolic Panel 04:00 Magnesium LAB 08/24/24 Verified 04:00 Date of Service: Aug 23, 2024 Billing Provider: JELENA GAINES MD Common Visit Codes: NOT BILLABLE JELENA GAINES MD Aug 23, 2024 08:12
[2024-08-23] MEDS: MIDODRINE HCL 10 MG TAB PO ONE (08:56)
[2024-08-23] MEDS: THIAMINE 100mg/ml INJ (200mg/2ml VIAL) IV SCH (11:30)
[2024-08-23] MEDS: MIDODRINE HCL 10 MG TAB PO SCH (11:35)
--- NOTE | 2024-08-23 11:56 | DVHPN2 ---
Progress Note - Dictate Date Seen: Aug 23, 2024 Medical Necessity Reason Pt with a Central, PICC or Fol: Yes The following are medically ne: Powell Catheter Reason for powell catheter: Strict I&O Subjective Mr. Howard is a 78 years old right-handed gentleman with a history of Parkinson's disease, the patient was admitted on 08/10 24 with a chief company of altered mental status I have seen in the ICU and examined the patient, I have discussed with his nurse and the daughter, he is fine, awake, oriented to person, place, socially appropriate His speech is mildly soft, mild tremor in the right hand, He reports that Sinemet helped him Respiratory culture, 08/12/2024: Klebsiella pneumoniae Blood culture, 08/10/24: Negative UDS, 08/10/2024: Negative Urinalysis, 08/10/2024: WBC 10, urine leukocyte: Trace WBC/HB/PLT/MCV, 08/20/24: 6.5/10.5/205/88.8 PT/INR/PTT, 08/14/2024: 13.9/1.34/30.9 Na, 08/10/2024: 170, 168, 08/11/2024: 165, 08/12/2024: 164, 08/13/2024: 161, 08/14/2024: 156, 08/19/2024: 149, 08/20/24: 149, 08/23/2023: 142 BUN/CR, 08/18/2024: 45/1.01, 08/20/2024: 42/1.07 CPK, 08/10/2024: 2513, 08/11/2024: 2525, 08/12/2024: 2844, 08/13/2024: 4268, 08/21/2024: 510 TBI/AST/ALT/AP, 08/20/2024: 1.4/148/210/179, 08/23/2024: 08/23/2024: 0.9/61/104/180 Ammonia, 08/23/2024: < 10 Hepatitis panel, 08/11/2024: Negative TSH, 08/11/2024: 4.48 Venous Doppler, lower extremities, 08/13/2024: No left DVT. Positive DVT involving the right lower extremity common femoral vein, femoral vein, popliteal vein and calf Chest x-ray, 08/10/2024: No acute cardiopulmonary disease. Elevation of the left hemidiaphragm. Enteric tube and endotracheal tube are in satisfactory position Chest x-ray, 08/21/2024: Increased congestion CT head, 08/10/2024: 1. No acute intracranial hemorrhage, midline shift or mass effect. 2. Generalized brain atrophy. 3. Small vessel ischemic/degenerative changes. 4. If symptoms persists, further evaluation with MRI is recommended MRI head, 08/19/2024: 1. No evidence of acute intracranial abnormality. 2. Motion limited study vital signs Vital Sign Date Time Temp Pulse Resp B/P (MAP) Pulse Ox O2 Delivery O2 Flow Rate FiO2 08/23/24 10:15 87 15 93/43 (60) 100 08/23/24 06:00 Room Air* 0 21 08/23/24 04:00 98.4 98.4 Total Intake and Output 08/22/24 08/22/24 08/23/24 15:00 23:00 07:00 Intake Total 1137.938 ml 1113.064 ml 400 ml Output Total 1300 ml 1345 ml Balance 1137.938 ml -186.936 ml -945 ml medications Current Medications Medications Dose Ordered Sig/Akiko Route Start Time Stop Time Status Last Admin Dose Admin Vancomycin HCl 200 ml @ 200 mls/hr Q12HR IV 08/10/24 22:00 UNV Pantoprazole Sodium 40 mg DAILY IV 08/11/24 10:00 08/23/24 11:31 40 MG Acetaminophen 650 mg Q6HP PRN NC 08/10/24 23:30 08/11/24 01:13 650 MG Enteral Nutritional Formula 240 ml 50ML/HR GT 08/12/24 12:00 Enoxaparin Sodium 80 mg Q12H SC 08/14/24 12:30 08/22/24 23:45 80 MG Amino Acids 0 ml @ 0 mls/hr PER PHARMACY IV 08/16/24 12:45 Morphine Sulfate 1 mg Q3HP PRN IV 08/17/24 11:00 08/23/24 05:43 1 MG Piperacillin Sod/ Tazobactam Sod 100 ml @ 25 mls/hr Q8HR IV 08/18/24 14:00 08/23/24 08:02 25 MLS/HR Lactated Ringer's 1,000 ml @ 50 mls/hr Q20H IV 08/19/24 08:00 08/22/24 16:00 50 MLS/HR Enteral Nutritional Formula 240 ml TIDWM PO 08/20/24 18:00 08/23/24 08:51 240 ML Enteral Nutritional Formula 28.8 gm BIDBM PO 08/21/24 10:00 08/23/24 08:51 28.8 GM Insulin Glargine 10 units DAILY@1000 SC 08/21/24 10:00 08/23/24 11:39 10 UNITS Diagnostic Test (Pha) 1 strip Q6HR 08/21/24 12:00 08/23/24 06:34 1 STRIP Insulin Human Regular Q6HR SC 08/21/24 12:00 08/23/24 06:35 3 UNITS Dextrose 50 ml UD PRN IV 08/21/24 09:30 Acetaminophen 650 mg Q6HP PRN PO 08/21/24 12:00 Diagnostic Test (Pha) 1 strip Q6HR 08/21/24 12:00 Cancel Insulin Human Regular FOLLOW SLIDING SCALE Q6HR SC 08/21/24 12:00 Cancel Dextrose 50 ml UD IV 08/21/24 10:00 Cancel Fat Emulsion Intravenous 100 ml/Potassium Acetate 20 meq/ Potassium Phosphate 66 meq/ Magnesium Sulfate 14 meq/ Multivitamins 10 ml/Insulin Human Regular 6 units/ Chromium/Copper/ Manganese/Seleni/ Zn 1 ml/Amino Acids/Dextrose/ Purified Water 1,739.56 ml @ 72 mls/hr [id number] IV 08/22/24 22:00 08/23/24 21:59 08/22/24 22:32 72 MLS/HR Norepinephrine Bitartrate 16 mg/ Sodium Chloride 250 ml @ 0.938 mls/ hr Q24H IV 08/22/24 14:00 08/22/24 14:00 0.938 MLS/HR Carbidopa/Levodopa 1 tab TID PO 08/22/24 22:00 Thiamine HCl 100 mg DAILY IV 08/23/24 10:00 08/23/24 11:30 100 MG Melatonin 3 mg HS PO 08/22/24 22:00 08/22/24 22:30 3 MG Midodrine 10 mg TID@0600,1200,1800 PO 08/23/24 12:00 08/23/24 11:35 10 MG Fat Emulsion Intravenous 100 ml/Potassium Acetate 30 meq/ Potassium Phosphate 66 meq/ Magnesium Sulfate 12 meq/ Multivitamins 10 ml/Insulin Human Regular 8 units/ Chromium/Copper/ Manganese/Zinc 1 ml/Sodium Phosphate 20 meq/ Amino Acids/ Dextrose/Purified Water 1,749.08 ml @ 72 mls/hr [id number] IV 08/23/24 22:00 08/24/24 21:59 objective General: the patient is well developed and nourished. No acute distress. MUSCULOSKELETAL EXAM: Pressure sores MENTAL STATUS: Awake, oriented to person place SPEECH, LANGUAGE, HIGHER CORTICAL FUNCTION: no aphasia or dysathria. CRANIAL NERVES: Pupils are equal, round and reactive. EOMs full and conjugate. No nystagmus. Facial sensation intact in all three divisions bilaterally. Mandibular strength intact. Facial muscles symmetrical and strength intact. SENSATION: Sensation to touch and pinprick is Ok MOTOR: Normal tone in the upper and lower extremity. Normal muscle bulk. No fasciculations. Mild tremor in the right hand, possible cogwheeling in both wrists. He moves the arms REFLEXES: Deep tendon reflexes normal and symmetrical. No pathological reflexes. CEREBELLAR/COORDINATION: Deferred GAIT/STATION: deferred laboratory and microbiology Laboratory Tests 08/23/24 03:00 Test 08/23/24 03:00 Range/Units Serum Glucose 230 H 74-106 mg/dL Problem List Altered mental status/metabolic encephalopathy secondary to Sepsis Septic shock Respiratory failure Urinary tract infection Dehydration Acute kidney failure Hypernatremia Rhabdomyolysis Hand tremors, gait disturbance, low voice Parkinson's disease Rule out essential tremor Pressure sores Assessment/Plan Monitoring Supportive treatment ICU care Respiratory support p.r.n. Stabilize vitals/personally drip Oxygen IV antiepileptics Hydration Retry Sinemet 25/100, 0.5 tablets t.i.d. Wound care DVT prophylaxis GI prophylaxis Pulmonary on case Nephrology on case Surgery on case More recommendation per clinical course This medical document was created using an electronic medical record system with [employer] system. Although this document has been carefully reviewed, there may still be some phonetic and typographical errors. These areas are purely typographical due to imperfections of the software programs, and do not reflect any compromise in the patient's medical care Prognosis Poor, critical Dietary Evaluation Review Comments: 1. If on Vent Consider Nepro 30ml/hr x 24 hr,( 58g pro 1274 kcal). this will support pt's needs at 100% protein, 94 % kcal. 2. If EN not possible, and NPO > 7 days, consider TPN per pharmacy. 3. If off Vent, and pass speech eval, offer Renal Specific -50g protein 2g Na 3 K Low phos, 4. If off vent on hemo dialysis, pass speech eval, offer Renal Standard 2 gNa 3 K, Low Phos diet. Expected Outcomes/Goals: advance to diet able to eat independently. Plan discussed with: Daughter, Other EVELINE HUNTER MD Aug 23, 2024 11:56
[2024-08-23] MEDS: CARBIDOPA W LEVODOPA 25/100mg TABLET PO SCH (14:27)
--- NOTE | 2024-08-23 20:30 | DVHPN2 ---
Progress Note - Dictate Date Seen: Aug 23, 2024 Medical Necessity Reason Pt with a Central, PICC or Fol: Yes The following are medically ne: Powell Catheter Reason for powell catheter: Strict I&O Subjective Patient seen and examined at bedside. Breathing on room air. Overnight events reviewed. vital signs Vital Sign Date Time Temp Pulse Resp B/P (MAP) Pulse Ox O2 Delivery O2 Flow Rate FiO2 08/23/24 16:11 89 08/23/24 16:11 20 100 Room Air* 0 21 08/23/24 16:00 100.4 114/47 (69) 100.4 Total Intake and Output 08/22/24 08/22/24 08/23/24 15:00 23:00 07:00 Intake Total 1137.938 ml 1261.939 ml 1392.625 ml Output Total 1300 ml 1345 ml Balance 1137.938 ml -38.061 ml 47.625 ml medications Current Medications Medications Dose Ordered Sig/Akiko Route Start Time Stop Time Status Last Admin Dose Admin Vancomycin HCl 200 ml @ 200 mls/hr Q12HR IV 08/10/24 22:00 UNV Pantoprazole Sodium 40 mg DAILY IV 08/11/24 10:00 08/23/24 11:31 40 MG Acetaminophen 650 mg Q6HP PRN UT 08/10/24 23:30 08/11/24 01:13 650 MG Enteral Nutritional Formula 240 ml 50ML/HR GT 08/12/24 12:00 Enoxaparin Sodium 80 mg Q12H SC 08/14/24 12:30 08/23/24 12:57 80 MG Amino Acids 0 ml @ 0 mls/hr PER PHARMACY IV 08/16/24 12:45 Morphine Sulfate 1 mg Q3HP PRN IV 08/17/24 11:00 08/23/24 13:11 1 MG Piperacillin Sod/ Tazobactam Sod 100 ml @ 25 mls/hr Q8HR IV 08/18/24 14:00 08/23/24 14:26 25 MLS/HR Lactated Ringer's 1,000 ml @ 50 mls/hr Q20H IV 08/19/24 08:00 08/23/24 12:46 50 MLS/HR Enteral Nutritional Formula 240 ml TIDWM PO 08/20/24 18:00 08/23/24 18:02 240 ML Enteral Nutritional Formula 28.8 gm BIDBM PO 08/21/24 10:00 08/23/24 08:51 28.8 GM Insulin Glargine 10 units DAILY@1000 SC 08/21/24 10:00 08/23/24 11:39 10 UNITS Diagnostic Test (Pha) 1 strip Q6HR 08/21/24 12:00 08/23/24 18:02 1 STRIP Insulin Human Regular Q6HR SC 08/21/24 12:00 08/23/24 18:17 3 UNITS Dextrose 50 ml UD PRN IV 08/21/24 09:30 Acetaminophen 650 mg Q6HP PRN PO 08/21/24 12:00 Diagnostic Test (Pha) 1 strip Q6HR 08/21/24 12:00 Cancel Insulin Human Regular FOLLOW SLIDING SCALE Q6HR SC 08/21/24 12:00 Cancel Dextrose 50 ml UD IV 08/21/24 10:00 Cancel Fat Emulsion Intravenous 100 ml/Potassium Acetate 20 meq/ Potassium Phosphate 66 meq/ Magnesium Sulfate 14 meq/ Multivitamins 10 ml/Insulin Human Regular 6 units/ Chromium/Copper/ Manganese/Seleni/ Zn 1 ml/Amino Acids/Dextrose/ Purified Water 1,739.56 ml @ 72 mls/hr [id number] IV 08/22/24 22:00 08/23/24 21:59 08/22/24 22:32 72 MLS/HR Norepinephrine Bitartrate 16 mg/ Sodium Chloride 250 ml @ 0.938 mls/ hr Q24H IV 08/22/24 14:00 08/23/24 14:30 3.75 MLS/HR Thiamine HCl 100 mg DAILY IV 08/23/24 10:00 08/23/24 11:30 100 MG Melatonin 3 mg HS PO 08/22/24 22:00 08/22/24 22:30 3 MG Midodrine 10 mg TID@0600,1200,1800 PO 08/23/24 12:00 08/23/24 18:02 10 MG Fat Emulsion Intravenous 100 ml/Potassium Acetate 30 meq/ Potassium Phosphate 66 meq/ Magnesium Sulfate 12 meq/ Multivitamins 10 ml/Insulin Human Regular 8 units/ Chromium/Copper/ Manganese/Zinc 1 ml/Sodium Phosphate 20 meq/ Amino Acids/ Dextrose/Purified Water 1,749.08 ml @ 72 mls/hr [id number] IV 08/23/24 22:00 08/24/24 21:59 Carbidopa/Levodopa 0.5 tab TID PO 08/23/24 14:00 08/23/24 14:27 0.5 TAB objective Gen.: Patient lying in bed in no apparent distress. Breathing on room air. Head: Normocephalic, atraumatic. Eyes: EOMI/PERRLA. Ears: Normal hearing. Normal anatomy. Neck/trachea: Trachea midline, supple. Nose: Normal external anatomy. Mouth: Moist mucous membranes. Chest: Decreased air entry bilaterally. No wheezing or rhonchi. Cardiovascular: Positive S1, positive S2. Regular rate and rhythm. Abdomen: Positive bowel sounds in all 4 quadrants. Soft, non-tender, non- distended. : Deferred. Rectal: Deferred. Skin: Warm, dry. Intact. Extremities: 2+ radial pulses bilaterally. No lower extremity edema. Neuro: Awake, alert, oriented x3. No gross motor or sensory deficits. Cranial nerves II through XII intact. Gait not assessed. laboratory and microbiology Laboratory Tests 08/23/24 03:00 Test 08/23/24 03:00 Range/Units Serum Glucose 230 H 74-106 mg/dL Assessment/Plan Impression: Acute hypoxic respiratory failure Leukocytosis Hypernatremia Parkinson's disease Acute metabolic encephalopathy Decubitus ulcers Sepsis Rhabdomyolysis Acute kidney injury Events: Remains on room air. No respiratory distress. On pressors for hemodynamic support On Levophed at 3 mcg/min Titrate to keep mean arterial pressure greater than 65 mmHg.. Improving pressor requirements Accu-Cheks for glycemic monitoring TPN for nutritional support. Patient is on Puree Diet. Neuro recommendations appreciated. On midodrine. Continue antibiotics IV fluids with LR 50 ml/hr. Wound debridement Wound care Head of bed elevation Aspiration precautions Labs and imaging reviewed. Rest of plan as noted below. Plan: S/p extubation 08/15/24 Breathing on room air. Supplemental O2 PRN. CT head: No acute intracranial hemorrhage or stroke. Pressors for hemodynamic support. Titrate to keep MAP above 65 mmHg/SBP above 90 mmHg. Antibiotics. Monitor renal function due to Acute kidney injury. Monitor electrolytes. Supplement as necessary. Monitor sodium due to hypernatremia, Na 153 on 08/17/24 IV fluid hydration Do not over correct sodium. Nutritional support. Accu-Cheks, ISS. GI prophylaxis - Protonix DVT prophylaxis. Condition: Critical Prognosis: Poor given multiple comorbidities. Rest of plan per hospitalist and other consultants. A total of 35 minutes of critical care time was spent reviewing the patient record, examining the patient, making a diagnostic and therapeutic plan, discussing this plan with the medical personnel, following up on diagnostic studies and following the patient for clinical stability excluding any and all procedures. At least 50% of this time was spent in direct, [id number] contact. Thank you Dr. Newman for allowing me to participate in this patient's care. Further recommendations will depend on patient's clinical course. Please do not hesitate to contact me if you have any questions or concerns. This medical document was created using an electronic medical record system with [employer] system. Although this document has been carefully reviewed, there may still be some phonetic and typographical errors. These areas are purely typographical due to imperfections of the software programs, and do not reflect any compromise in the patient's medical care. Dietary Evaluation Review Comments: 1. If on Vent Consider Nepro 30ml/hr x 24 hr,( 58g pro 1274 kcal). this will support pt's needs at 100% protein, 94 % kcal. 2. If EN not possible, and NPO > 7 days, consider TPN per pharmacy. 3. If off Vent, and pass speech eval, offer Renal Specific -50g protein 2g Na 3 K Low phos, 4. If off vent on hemo dialysis, pass speech eval, offer Renal Standard 2 gNa 3 K, Low Phos diet. Expected Outcomes/Goals: advance to diet able to eat independently. Plan discussed with: Other (SRAVANI Reese) Critical Care Time(min): 35 REY REAGAN MD Aug 23, 2024 20:30
[2024-08-23] MEDS: TPN PER PHARMACY IV NR (22:11)
[2024-08-24] VITALS (95 sets, daily range): BP systolic 71–123; BP diastolic 24–66; PULSE 81–102; RESP 11–29; TEMP 98.3–99.8; O2SAT 96–100
[2024-08-24 03:42] LABS: Basophils # (auto) 0 10 ^3/uL (0-0.2); Basophils % (auto) 0.6 % (0.0-2.0); Eosinophils # (auto) 0.1 10 ^3/uL (0-0.8); Eosinophils % (auto) 2.5 % (0.0-7.0); Hematocrit 26.5 % (41.0-53.0); Hemoglobin 8.9 g/dL (13.5-17.5); Lymphocytes # (auto) 0.8 10 ^3/uL (0.4-5.4); Lymphocytes % (auto) 15.3 % (10.0-50.0); Mean Corpuscular Hemoglobin 29.9 pg (28.0-32.0); Mean Corpuscular Hgb Conc. 33.7 g/dL (32.0-36.0); Mean Corpuscular Volume 88.8 fL (80.0-100.0); Monocytes # (auto) 0.3 10 ^3/uL (0-1.3); Monocytes % (auto) 5.7 % (0.0-12.0); Neutrophils # (auto) 4.2 10 ^3/uL (1.6-8.6); Neutrophils % (auto) 75.9 % (37.0-80.0); Nucleated Red Blood Cells % 0.1 %; Platelet Count (auto) 209 10^3/uL (140-450); Red Blood Cells 2.98 10^6/uL (4.5-5.90); White Blood Cell 5.5 10^3/uL (4.4-10.8)
[2024-08-24 03:46] LABS: Anion Gap 4 (5-15); BUN/Creatinine Ratio 41.9 (10.0-20.0); Carbon Dioxide 27 mmol/L (20-31); Magnesium 1.8 mg/dL (1.6-2.6); Potassium 3.8 mmol/L (3.5-5.1); Sodium 140 mmol/L (136-145)
[2024-08-24 03:47] LABS: Phosphorus 2.9 mg/dL (2.4-5.1)
[2024-08-24 03:48] LABS: Bilirubin, Total 0.8 mg/dL (0.2-1.0)
[2024-08-24 03:57] LABS: Alkaline Phosphatase 170 U/L (46-116); Aspartate Aminotransferase 57 U/L (13-40); Blood Urea Nitrogen 36 mg/dL (9-23); Chloride 109 mmol/L (98-107); Glucose 176 mg/dL (74-106)
[2024-08-24 03:58] LABS: Alanine Aminotransferase 44 U/L (7-40); Albumin 2.6 g/dL (3.2-4.8); Calcium 8.1 mg/dL (8.7-10.4); Total Protein 5.3 g/dL (5.7-8.2)
--- NOTE | 2024-08-24 10:12 | DVHPN2 ---
Progress Note - Dictate Date Seen: Aug 24, 2024 Medical Necessity Reason Pt with a Central, PICC or Fol: Yes The following are medically ne: Powell Catheter Reason for powell catheter: Strict I&O Subjective Mr. Howard is a 78 years old right-handed gentleman with a history of Parkinson's disease, the patient was admitted on 08/10 24 with a chief company of altered mental status I have seen in the ICU and examined the patient, I have discussed with his nurse, he is doing fine, awake, oriented to person, place, socially appropriate His speech is mildly soft, no tremor but possible cogwheeling in the right hand, On levo two mcg per minute for unstable blood pressure Respiratory culture, 08/12/2024: Klebsiella pneumoniae Blood culture, 08/10/24: Negative UDS, 08/10/2024: Negative Urinalysis, 08/10/2024: WBC 10, urine leukocyte: Trace WBC/HB/PLT/MCV, 08/20/24: 6.5/10.5/205/88.8 PT/INR/PTT, 08/14/2024: 13.9/1.34/30.9 Na, 08/10/2024: 170, 168, 08/11/2024: 165, 08/12/2024: 164, 08/13/2024: 161, 08/14/2024: 156, 08/19/2024: 149, 08/20/24: 149, 08/23/2023: 142 BUN/CR, 08/18/2024: 45/1.01, 08/20/2024: 42/1.07 CPK, 08/10/2024: 2513, 08/11/2024: 2525, 08/12/2024: 2844, 08/13/2024: 4268, 08/21/2024: 510 TBI/AST/ALT/AP, 08/20/2024: 1.4/148/210/179, 08/23/2024: 08/23/2024: 0.9/61/104/180 Ammonia, 08/23/2024: < 10 Hepatitis panel, 08/11/2024: Negative TSH, 08/11/2024: 4.48 Venous Doppler, lower extremities, 08/13/2024: No left DVT. Positive DVT involving the right lower extremity common femoral vein, femoral vein, popliteal vein and calf Chest x-ray, 08/10/2024: No acute cardiopulmonary disease. Elevation of the left hemidiaphragm. Enteric tube and endotracheal tube are in satisfactory position Chest x-ray, 08/21/2024: Increased congestion CT head, 08/10/2024: 1. No acute intracranial hemorrhage, midline shift or mass effect. 2. Generalized brain atrophy. 3. Small vessel ischemic/degenerative changes. 4. If symptoms persists, further evaluation with MRI is recommended MRI head, 08/19/2024: 1. No evidence of acute intracranial abnormality. 2. Motion limited study vital signs Vital Sign Date Time Temp Pulse Resp B/P (MAP) Pulse Ox O2 Delivery O2 Flow Rate FiO2 08/24/24 09:45 88 19 105/49 (67) 100 08/24/24 08:00 Room Air* 0 21 08/24/24 08:00 98.7 98.7 Total Intake and Output 08/23/24 08/23/24 08/24/24 15:00 23:00 07:00 Intake Total 1013.813 ml 1628.365 ml 1173.6 ml Output Total 1650 ml 1400 ml Balance 1013.813 ml -21.635 ml -226.4 ml medications Current Medications Medications Dose Ordered Sig/Akiko Route Start Time Stop Time Status Last Admin Dose Admin Vancomycin HCl 200 ml @ 200 mls/hr Q12HR IV 08/10/24 22:00 UNV Pantoprazole Sodium 40 mg DAILY IV 08/11/24 10:00 08/23/24 11:31 40 MG Acetaminophen 650 mg Q6HP PRN DE 08/10/24 23:30 08/11/24 01:13 650 MG Enteral Nutritional Formula 240 ml 50ML/HR GT 08/12/24 12:00 Enoxaparin Sodium 80 mg Q12H SC 08/14/24 12:30 08/24/24 00:50 80 MG Amino Acids 0 ml @ 0 mls/hr PER PHARMACY IV 08/16/24 12:45 Morphine Sulfate 1 mg Q3HP PRN IV 08/17/24 11:00 08/24/24 01:12 1 MG Piperacillin Sod/ Tazobactam Sod 100 ml @ 25 mls/hr Q8HR IV 08/18/24 14:00 08/24/24 06:27 25 MLS/HR Lactated Ringer's 1,000 ml @ 50 mls/hr Q20H IV 08/19/24 08:00 08/23/24 12:46 50 MLS/HR Enteral Nutritional Formula 240 ml TIDWM PO 08/20/24 18:00 08/23/24 18:02 240 ML Enteral Nutritional Formula 28.8 gm BIDBM PO 08/21/24 10:00 08/23/24 08:51 28.8 GM Insulin Glargine 10 units DAILY@1000 SC 08/21/24 10:00 08/23/24 11:39 10 UNITS Diagnostic Test (Pha) 1 strip Q6HR 08/21/24 12:00 08/24/24 06:00 1 STRIP Insulin Human Regular Q6HR SC 08/21/24 12:00 08/24/24 06:00 3 UNITS Dextrose 50 ml UD PRN IV 08/21/24 09:30 Acetaminophen 650 mg Q6HP PRN PO 08/21/24 12:00 Diagnostic Test (Pha) 1 strip Q6HR 08/21/24 12:00 Cancel Insulin Human Regular FOLLOW SLIDING SCALE Q6HR SC 08/21/24 12:00 Cancel Dextrose 50 ml UD IV 08/21/24 10:00 Cancel Norepinephrine Bitartrate 16 mg/ Sodium Chloride 250 ml @ 0.938 mls/ hr Q24H IV 08/22/24 14:00 08/23/24 14:30 3.75 MLS/HR Thiamine HCl 100 mg DAILY IV 08/23/24 10:00 08/23/24 11:30 100 MG Melatonin 3 mg HS PO 08/22/24 22:00 08/23/24 22:10 3 MG Midodrine 10 mg TID@0600,1200,1800 PO 08/23/24 12:00 08/24/24 06:29 10 MG Fat Emulsion Intravenous 100 ml/Potassium Acetate 30 meq/ Potassium Phosphate 66 meq/ Magnesium Sulfate 12 meq/ Multivitamins 10 ml/Insulin Human Regular 8 units/ Chromium/Copper/ Manganese/Zinc 1 ml/Sodium Phosphate 20 meq/ Amino Acids/ Dextrose/Purified Water 1,749.08 ml @ 72 mls/hr [id number] IV 08/23/24 22:00 08/24/24 21:59 08/23/24 22:11 72 MLS/HR Carbidopa/Levodopa 0.5 tab TID PO 08/23/24 14:00 08/24/24 06:27 0.5 TAB objective General: the patient is well developed and nourished. No acute distress. MUSCULOSKELETAL EXAM: Pressure sores MENTAL STATUS: Awake, oriented to person place SPEECH, LANGUAGE, HIGHER CORTICAL FUNCTION: no aphasia or dysathria. CRANIAL NERVES: Pupils are equal, round and reactive. EOMs full and conjugate. No nystagmus. Facial sensation intact in all three divisions bilaterally. Mandibular strength intact. Facial muscles symmetrical and strength intact. SENSATION: Sensation to touch and pinprick is Ok MOTOR: Normal tone in the upper and lower extremity. Normal muscle bulk. No fasciculations. Mild tremor in the right hand, possible cogwheeling in both wrists. He moves the arms REFLEXES: Deep tendon reflexes normal and symmetrical. No pathological reflexes. CEREBELLAR/COORDINATION: Deferred GAIT/STATION: deferred laboratory and microbiology Laboratory Tests 08/24/24 03:05 Test 08/24/24 03:05 Range/Units Serum Glucose 176 H 74-106 mg/dL Problem List Altered mental status/metabolic encephalopathy secondary to Sepsis Septic shock Respiratory failure Urinary tract infection Dehydration Acute kidney failure Hypernatremia Rhabdomyolysis Hand tremors, gait disturbance, low voice Parkinson's disease Rule out essential tremor Pressure sores Assessment/Plan Monitoring Supportive treatment ICU care Respiratory support p.r.n. Stabilize vitals/personally drip Oxygen IV antiepileptics Hydration Sinemet 25/100, 0.5 tablets t.i.d. Current pain management Okay to use Tylenol for pain control Wound care DVT prophylaxis GI prophylaxis Pulmonary on case Nephrology on case Surgery on case More recommendation per clinical course This medical document was created using an electronic medical record system with [employer] dictation system. Although this document has been carefully reviewed, there may still be some phonetic and typographical errors. These areas are purely typographical due to imperfections of the software programs, and do not reflect any compromise in the patient's medical care Prognosis poor Dietary Evaluation Review Comments: 1. If on Vent Consider Nepro 30ml/hr x 24 hr,( 58g pro 1274 kcal). this will support pt's needs at 100% protein, 94 % kcal. 2. If EN not possible, and NPO > 7 days, consider TPN per pharmacy. 3. If off Vent, and pass speech eval, offer Renal Specific -50g protein 2g Na 3 K Low phos, 4. If off vent on hemo dialysis, pass speech eval, offer Renal Standard 2 gNa 3 K, Low Phos diet. Expected Outcomes/Goals: advance to diet able to eat independently. Plan discussed with: Other EVELINE HUNTER MD Aug 24, 2024 10:12
--- NOTE | 2024-08-24 11:19 | DVHPN2 ---
Subjective Alert and oriented Tolerating his diet He is still on a small dose of Levophed drip Reviewed: Care Plan, H&P, Labs, Medications, Previous Orders, Radiology, Other (Consultants) Changes from previous H/P or p: Changes General: Per HPI Objective Vitals Vital Signs Date Time Temp Pulse Resp B/P (MAP) Pulse Ox O2 Delivery O2 Flow Rate FiO2 08/24/24 10:00 20 100 Room Air* 0 21 08/24/24 10:00 93 08/24/24 09:45 105/49 (67) 08/24/24 08:00 98.7 98.7 Intake/Output Intake and Output 08/24/24 07:00 Intake Total 3815.778 ml Output Total 3050 ml Balance 765.778 ml Intake Oral 800 ml IV Total 3015.778 ml Output Urine Total 3050 ml General Appearance: Alert, Oriented X3, Cooperative, No acute distress HEENT: Atraumatic Lungs: Clear to auscultation, Normal air movement Cardiovascular: Regular rate, Normal S1, Normal S2 Abdomen: Normal bowel sounds, Soft, No tenderness Extremities: Other (Some bilateral lower extremities edema) Skin: Wounds (Upper back) Medications Current Medications Medications Dose Ordered Sig/Akiko Route Start Time Stop Time Status Last Admin Dose Admin Vancomycin HCl 200 ml @ 200 mls/hr Q12HR IV 08/10/24 22:00 UNV Pantoprazole Sodium 40 mg DAILY IV 08/11/24 10:00 08/23/24 11:31 40 MG Acetaminophen 650 mg Q6HP PRN NH 08/10/24 23:30 08/11/24 01:13 650 MG Enteral Nutritional Formula 240 ml 50ML/HR GT 08/12/24 12:00 Enoxaparin Sodium 80 mg Q12H SC 08/14/24 12:30 08/24/24 00:50 80 MG Amino Acids 0 ml @ 0 mls/hr PER PHARMACY IV 08/16/24 12:45 Morphine Sulfate 1 mg Q3HP PRN IV 08/17/24 11:00 08/24/24 01:12 1 MG Piperacillin Sod/ Tazobactam Sod 100 ml @ 25 mls/hr Q8HR IV 08/18/24 14:00 08/24/24 06:27 25 MLS/HR Lactated Ringer's 1,000 ml @ 50 mls/hr Q20H IV 08/19/24 08:00 08/23/24 12:46 50 MLS/HR Enteral Nutritional Formula 240 ml TIDWM PO 08/20/24 18:00 08/23/24 18:02 240 ML Enteral Nutritional Formula 28.8 gm BIDBM PO 08/21/24 10:00 08/23/24 08:51 28.8 GM Insulin Glargine 10 units DAILY@1000 SC 08/21/24 10:00 08/23/24 11:39 10 UNITS Diagnostic Test (Pha) 1 strip Q6HR 08/21/24 12:00 08/24/24 06:00 1 STRIP Insulin Human Regular Q6HR SC 08/21/24 12:00 08/24/24 06:00 3 UNITS Dextrose 50 ml UD PRN IV 08/21/24 09:30 Acetaminophen 650 mg Q6HP PRN PO 08/21/24 12:00 Diagnostic Test (Pha) 1 strip Q6HR 08/21/24 12:00 Cancel Insulin Human Regular FOLLOW SLIDING SCALE Q6HR SC 08/21/24 12:00 Cancel Dextrose 50 ml UD IV 08/21/24 10:00 Cancel Norepinephrine Bitartrate 16 mg/ Sodium Chloride 250 ml @ 0.938 mls/ hr Q24H IV 08/22/24 14:00 08/23/24 14:30 3.75 MLS/HR Thiamine HCl 100 mg DAILY IV 08/23/24 10:00 08/23/24 11:30 100 MG Melatonin 3 mg HS PO 08/22/24 22:00 08/23/24 22:10 3 MG Midodrine 10 mg TID@0600,1200,1800 PO 08/23/24 12:00 08/24/24 06:29 10 MG Fat Emulsion Intravenous 100 ml/Potassium Acetate 30 meq/ Potassium Phosphate 66 meq/ Magnesium Sulfate 12 meq/ Multivitamins 10 ml/Insulin Human Regular 8 units/ Chromium/Copper/ Manganese/Zinc 1 ml/Sodium Phosphate 20 meq/ Amino Acids/ Dextrose/Purified Water 1,749.08 ml @ 72 mls/hr [id number] IV 08/23/24 22:00 08/24/24 21:59 08/23/24 22:11 72 MLS/HR Carbidopa/Levodopa 0.5 tab TID PO 08/23/24 14:00 1/8/25 06:27 0.5 TAB Fat Emulsion Intravenous 100 ml/Sodium Phosphate 20 meq/ Potassium Acetate 30 meq/Potassium Phosphate 70 meq/ Magnesium Sulfate 16 meq/ Multivitamins 10 ml/Chromium/ Copper/Manganese/ Zinc 1 ml/Insulin Human Regular 6 units/Amino Acids/ Dextrose/Purified Water 1,700.9691 ml @ 70 mls/hr [id number] IV 08/24/24 22:00 08/25/24 21:59 Laboratory Results Laboratory Tests 08/24/24 03:05 Chemistry Test 08/24/24 03:05 Albumin 2.6 g/dL (3.2-4.8) L Calcium Level 8.1 mg/dL (8.7-10.4) L Magnesium Level 1.8 mg/dL (1.6-2.6) Phosphorus Level 2.9 mg/dL (2.4-5.1) Total Protein 5.3 g/dL (5.7-8.2) L LFT Test 08/24/24 03:05 Alanine Aminotransferase (ALT) 44 U/L (7-40) H Alkaline Phosphatase 170 U/L (46-116) H Aspartate Amino Transferase (AST) 57 U/L (13-40) H Total Bilirubin 0.8 mg/dL (0.2-1.0) Urinalysis Test 08/11/24 13:02 Urine Color Yellow (Yellow) Urine Clarity Turbid (Clear) H Urine pH 5.5 (5.0-9.0) Urine Specific Spivey 1.018 (1.001-1.035) Urine Protein 1+ (Negative) H Urine Ketones Negative (Negative) Urine Blood 3+ /uL (Negative) H Urine Nitrite Negative (Negative) Urine Bilirubin Negative (Negative) Urine Urobilinogen 4 mg/dL (Negative) H Urine Leukocyte Esterase 1+ /uL (Negative) Urine RBC 13 /hpf (0 - 3) Urine WBC 14 /hpf (0 - 3) Urine Squamous Epithelial Cells Few /hpf (<5) Urine Bacteria Few /hpf (None Seen) H Urine Hyaline Casts Few /lpf (0 - 2) Urine Granular Casts Few /lpf (0) Urine Mucus Few (None Seen) Urine Creatinine 67.44 mg/dL (30.0-125.0) Urine Protein/Creatinine Ratio 1.00 Urine Sodium 32 mmol/L (40-220) L Urine Glucose Normal mg/dL (Normal) Urine Total Protein 67.3 mg/dL (1-14) H Microbiology Microbiology Date/Time Source Procedure Growth Status 08/22/24 15:28 Back Lumbar Gram Stain - Final Resulted 08/22/24 15:28 Back Lumbar Wound Culture - Preliminary Resulted 08/12/24 19:02 Bronchial Washings Gram Stain - Final Resulted 08/12/24 19:02 Respiratory Culture - Preliminary Klebsiella pneumoniae Presumptive Ema albicans Resulted 08/10/24 14:08 Blood Blood Culture - Final NO GROWTH AFTER 5 DAYS OF INCUBATION. Complete Assessment/Plan Assessment/Plan Acute hypoxic respiratory failure, Metabolic encephalopathy, Sepsis with septic shock Severe hypernatremia Severe dehydration DAYLIN due to vasomotor nephropathy Rhabdomyolysis Parkinson's disease Decubitus ulcer RLE DVT PLAN: 08/22/24: Parkinson's Disease: Resume Sinemet Sepsis with hypotension: Levophed drip, taper down as tolerated Hypernatremia: Better, continue TPN and IV fluids Protein malnutrition: Protein supplement Left buttock and sacral decubitus ulcers: Get wound cultures, IV antibiotics: Zosyn DAYLIN: Better, continue IV fluids DVT: Lovenox Add thiamine IV Check B12 and Folic acid and ammonia 08/23/24: Add Midodrine 10 mg tid Advance diet to pureed Taper down the Levophed as tolerated Continue IV antibiotics We will stop TPN if he tolerates. Diet Once off the Levophed then we can downgrade from ICU 08/24/2024: Continue midodrine Tapered down the Levophed and stop if tolerated Downgrade to tele if he stays off the Levophed for 4 hours Continue diet as tolerated Discontinue TPN Continue physical therapy Continue IV fluids with LR Wound culture showed Enterococcus faecalis, on Zosyn Continue Sinemet Plan discussed with: Patient My Orders Orders - JELENA GAINES MD Procedure Category Date Status Time Amino Acid PHA 08/24/24 In Process Infusion... W/Fat 22:00 Date of Service: Aug 24, 2024 Billing Provider: JELENA GAINES MD Common Visit Codes: NOT BILLABLE JELENA GAINES MD Aug 24, 2024 11:19
[2024-08-24] MEDS ORDERED: POTASSIUM CHL 20MEQ/100ML 100 ML IV ONE (16:30)
--- NOTE | 2024-08-24 21:11 | DVHPN2 ---
Progress Note - Dictate Date Seen: Aug 24, 2024 Medical Necessity Reason Pt with a Central, PICC or Fol: Yes The following are medically ne: Powell Catheter Reason for powell catheter: Strict I&O Subjective Patient seen and examined at bedside. Breathing on room air. Overnight events reviewed. vital signs Vital Sign Date Time Temp Pulse Resp B/P (MAP) Pulse Ox O2 Delivery O2 Flow Rate FiO2 08/24/24 19:45 94 27 106/28 (54) 100 08/24/24 18:00 Room Air* 0 21 08/24/24 16:00 98.9 98.9 Total Intake and Output 08/23/24 08/23/24 08/24/24 15:00 23:00 07:00 Intake Total 1013.813 ml 1628.365 ml 1323.413 ml Output Total 1650 ml 1400 ml Balance 1013.813 ml -21.635 ml -76.587 ml medications Current Medications Medications Dose Ordered Sig/Akiko Route Start Time Stop Time Status Last Admin Dose Admin Vancomycin HCl 200 ml @ 200 mls/hr Q12HR IV 08/10/24 22:00 UNV Pantoprazole Sodium 40 mg DAILY IV 08/11/24 10:00 08/24/24 10:46 40 MG Acetaminophen 650 mg Q6HP PRN AL 08/10/24 23:30 08/11/24 01:13 650 MG Enoxaparin Sodium 80 mg Q12H SC 08/14/24 12:30 08/24/24 12:31 80 MG Morphine Sulfate 1 mg Q3HP PRN IV 08/17/24 11:00 08/24/24 01:12 1 MG Piperacillin Sod/ Tazobactam Sod 100 ml @ 25 mls/hr Q8HR IV 08/18/24 14:00 08/24/24 14:41 25 MLS/HR Lactated Ringer's 1,000 ml @ 50 mls/hr Q20H IV 08/19/24 08:00 08/24/24 10:45 50 MLS/HR Enteral Nutritional Formula 240 ml TIDWM PO 08/20/24 18:00 08/24/24 18:09 240 ML Enteral Nutritional Formula 28.8 gm BIDBM PO 08/21/24 10:00 08/24/24 15:08 28.8 GM Insulin Glargine 10 units DAILY@1000 SC 08/21/24 10:00 08/24/24 11:35 10 UNITS Diagnostic Test (Pha) 1 strip Q6HR 08/21/24 12:00 08/24/24 18:13 1 STRIP Insulin Human Regular Q6HR SC 08/21/24 12:00 08/24/24 18:15 3 UNITS Dextrose 50 ml UD PRN IV 08/21/24 09:30 Acetaminophen 650 mg Q6HP PRN PO 08/21/24 12:00 Diagnostic Test (Pha) 1 strip Q6HR 08/21/24 12:00 Cancel Insulin Human Regular FOLLOW SLIDING SCALE Q6HR SC 08/21/24 12:00 Cancel Dextrose 50 ml UD IV 08/21/24 10:00 Cancel Norepinephrine Bitartrate 16 mg/ Sodium Chloride 250 ml @ 0.938 mls/ hr Q24H IV 08/22/24 14:00 08/23/24 14:30 3.75 MLS/HR Thiamine HCl 100 mg DAILY IV 08/23/24 10:00 08/24/24 10:46 100 MG Melatonin 3 mg HS PO 08/22/24 22:00 08/23/24 22:10 3 MG Midodrine 10 mg TID@0600,1200,1800 PO 08/23/24 12:00 08/24/24 18:21 10 MG Fat Emulsion Intravenous 100 ml/Potassium Acetate 30 meq/ Potassium Phosphate 66 meq/ Magnesium Sulfate 12 meq/ Multivitamins 10 ml/Insulin Human Regular 8 units/ Chromium/Copper/ Manganese/Zinc 1 ml/Sodium Phosphate 20 meq/ Amino Acids/ Dextrose/Purified Water 1,749.08 ml @ 72 mls/hr [id number] IV 08/23/24 22:00 08/24/24 21:59 08/23/24 22:11 72 MLS/HR Carbidopa/Levodopa 0.5 tab TID PO 08/23/24 14:00 08/24/24 14:41 0.5 TAB objective Gen.: Patient lying in bed in no apparent distress. Breathing on room air. Head: Normocephalic, atraumatic. Eyes: EOMI/PERRLA. Ears: Normal hearing. Normal anatomy. Neck/trachea: Trachea midline, supple. Nose: Normal external anatomy. Mouth: Moist mucous membranes. Chest: Decreased air entry bilaterally. No wheezing or rhonchi. Cardiovascular: Positive S1, positive S2. Regular rate and rhythm. Abdomen: Positive bowel sounds in all 4 quadrants. Soft, non-tender, non- distended. : Deferred. Rectal: Deferred. Skin: Warm, dry. Intact. Extremities: 2+ radial pulses bilaterally. No lower extremity edema. Neuro: Awake, alert, oriented x3. No gross motor or sensory deficits. Cranial nerves II through XII intact. Gait not assessed. laboratory and microbiology Laboratory Tests 08/24/24 03:05 Test 08/24/24 03:05 Range/Units Serum Glucose 176 H 74-106 mg/dL Assessment/Plan Impression: Acute hypoxic respiratory failure Leukocytosis Hypernatremia Parkinson's disease Acute metabolic encephalopathy Decubitus ulcers Sepsis Rhabdomyolysis Acute kidney injury Events: Remains on room air. No respiratory distress. Off Levophed, hemodynamically stable. TPN was discontinued Accu-Cheks for glycemic monitoring Neuro recommendations appreciated. Brain MRI done 08/19/24 showed no evidence of acute intracranial abnormality. On midodrine. Continue antibiotics - Zosyn IV fluids with LR 50 ml/hr. Wound debridement Wound care Head of bed elevation Aspiration precautions Labs and imaging reviewed. Rest of plan as noted below. Plan: S/p extubation 08/15/24 Breathing on room air. Supplemental O2 PRN. CT head: No acute intracranial hemorrhage or stroke. Pressors if necessary for hemodynamic support. Titrate to keep MAP above 65 mmHg/SBP above 90 mmHg. Antibiotics. Monitor renal function due to Acute kidney injury. Monitor electrolytes. Supplement as necessary. Monitor sodium due to hypernatremia, Na 153 on 08/17/24 IV fluid hydration Do not over correct sodium. Nutritional support. Accu-Cheks, ISS. GI prophylaxis - Protonix DVT prophylaxis. Condition: Critical Prognosis: Poor given multiple comorbidities. Rest of plan per hospitalist and other consultants. A total of 35 minutes of critical care time was spent reviewing the patient record, examining the patient, making a diagnostic and therapeutic plan, discussing this plan with the medical personnel, following up on diagnostic studies and following the patient for clinical stability excluding any and all procedures. At least 50% of this time was spent in direct, [id number] contact. Thank you Dr. Newman for allowing me to participate in this patient's care. Further recommendations will depend on patient's clinical course. Please do not hesitate to contact me if you have any questions or concerns. This medical document was created using an electronic medical record system with [employer] dictation system. Although this document has been carefully reviewed, there may still be some phonetic and typographical errors. These areas are purely typographical due to imperfections of the software programs, and do not reflect any compromise in the patient's medical care. Dietary Evaluation Review Comments: 1. If on Vent Consider Nepro 30ml/hr x 24 hr,( 58g pro 1274 kcal). this will support pt's needs at 100% protein, 94 % kcal. 2. If EN not possible, and NPO > 7 days, consider TPN per pharmacy. 3. If off Vent, and pass speech eval, offer Renal Specific -50g protein 2g Na 3 K Low phos, 4. If off vent on hemo dialysis, pass speech eval, offer Renal Standard 2 gNa 3 K, Low Phos diet. Expected Outcomes/Goals: advance to diet able to eat independently. Plan discussed with: Other (SRAVANI Carver) Critical Care Time(min): 35 REY REAGAN MD Aug 24, 2024 21:11
[2024-08-24] MEDS ORDERED: TPN PER PHARMACY IV NR (22:00)
[2024-08-25] VITALS (89 sets, daily range): BP systolic 77–127; BP diastolic 35–68; PULSE 82–108; RESP 9–30; TEMP 98.1–98.9; O2SAT 99–100
[2024-08-25 04:05] LABS: Potassium 3.8 mmol/L (3.5-5.1); Sodium 140 mmol/L (136-145)
[2024-08-25 04:06] LABS: Anion Gap 5 (5-15); Carbon Dioxide 27 mmol/L (20-31)
[2024-08-25 04:12] LABS: Magnesium 1.7 mg/dL (1.6-2.6)
[2024-08-25 04:19] LABS: Blood Urea Nitrogen 30 mg/dL (9-23); Calcium 8.3 mg/dL (8.7-10.4); Chloride 108 mmol/L (98-107); Glucose 109 mg/dL (74-106)
--- NOTE | 2024-08-25 09:41 | DVHPN2 ---
Progress Note - Dictate Date Seen: Aug 25, 2024 Medical Necessity Reason Pt with a Central, PICC or Fol: Yes The following are medically ne: Powell Catheter Reason for powell catheter: Strict I&O Subjective Mr. Howard is a 78 years old right-handed gentleman with a history of Parkinson's disease, the patient was admitted on 08/10 24 with a chief company of altered mental status I have seen in the ICU and examined the patient, I have discussed with his nurse, he is doing fine, awake, oriented to person, place only, socially appropriate His speech is mildly soft, no tremor but has cogwheeling in the right hand, On levo 3 mcg per minute for unstable blood pressure Respiratory culture, 08/12/2024: Klebsiella pneumoniae Blood culture, 08/10/24: Negative UDS, 08/10/2024: Negative Urinalysis, 08/10/2024: WBC 10, urine leukocyte: Trace WBC/HB/PLT/MCV, 08/20/24: 6.5/10.5/205/88.8 PT/INR/PTT, 08/14/2024: 13.9/1.34/30.9 Na, 08/10/2024: 170, 168, 08/11/2024: 165, 08/12/2024: 164, 08/13/2024: 161, 08/14/2024: 156, 08/19/2024: 149, 08/20/24: 149, 08/23/2023: 142 BUN/CR, 08/18/2024: 45/1.01, 08/20/2024: 42/1.07 CPK, 08/10/2024: 2513, 08/11/2024: 2525, 08/12/2024: 2844, 08/13/2024: 4268, 08/21/2024: 510 TBI/AST/ALT/AP, 08/20/2024: 1.4/148/210/179, 08/23/2024: 08/23/2024: 0.9/61/104/180 Ammonia, 08/23/2024: < 10 Hepatitis panel, 08/11/2024: Negative TSH, 08/11/2024: 4.48 Venous Doppler, lower extremities, 08/13/2024: No left DVT. Positive DVT involving the right lower extremity common femoral vein, femoral vein, popliteal vein and calf Chest x-ray, 08/10/2024: No acute cardiopulmonary disease. Elevation of the left hemidiaphragm. Enteric tube and endotracheal tube are in satisfactory position Chest x-ray, 08/21/2024: Increased congestion CT head, 08/10/2024: 1. No acute intracranial hemorrhage, midline shift or mass effect. 2. Generalized brain atrophy. 3. Small vessel ischemic/degenerative changes. 4. If symptoms persists, further evaluation with MRI is recommended MRI head, 08/19/2024: 1. No evidence of acute intracranial abnormality. 2. Motion limited study vital signs Vital Sign Date Time Temp Pulse Resp B/P (MAP) Pulse Ox O2 Delivery O2 Flow Rate FiO2 08/25/24 07:54 20 100 Room Air* 0 21 08/25/24 06:00 97 08/25/24 06:00 119/60 (79) 08/25/24 05:00 98.6 98.6 Total Intake and Output 08/24/24 08/24/24 08/25/24 15:00 23:00 07:00 Intake Total 1083.502 ml 898.438 ml 755.00 ml Output Total 1400 ml 1150 ml Balance 1083.502 ml -501.562 ml -395.00 ml medications Current Medications Medications Dose Ordered Sig/Akiko Route Start Time Stop Time Status Last Admin Dose Admin Vancomycin HCl 200 ml @ 200 mls/hr Q12HR IV 08/10/24 22:00 UNV Pantoprazole Sodium 40 mg DAILY IV 08/11/24 10:00 08/24/24 10:46 40 MG Acetaminophen 650 mg Q6HP PRN NC 08/10/24 23:30 08/11/24 01:13 650 MG Enoxaparin Sodium 80 mg Q12H SC 08/14/24 12:30 08/24/24 23:36 80 MG Morphine Sulfate 1 mg Q3HP PRN IV 08/17/24 11:00 08/25/24 05:04 1 MG Piperacillin Sod/ Tazobactam Sod 100 ml @ 25 mls/hr Q8HR IV 08/18/24 14:00 08/25/24 05:46 25 MLS/HR Lactated Ringer's 1,000 ml @ 50 mls/hr Q20H IV 08/19/24 08:00 08/24/24 10:45 50 MLS/HR Enteral Nutritional Formula 240 ml TIDWM PO 08/20/24 18:00 08/24/24 18:09 240 ML Enteral Nutritional Formula 28.8 gm BIDBM PO 08/21/24 10:00 08/24/24 15:08 28.8 GM Insulin Glargine 10 units DAILY@1000 SC 08/21/24 10:00 08/24/24 11:35 10 UNITS Diagnostic Test (Pha) 1 strip Q6HR 08/21/24 12:00 08/25/24 05:39 1 STRIP Insulin Human Regular Q6HR SC 08/21/24 12:00 08/24/24 18:15 3 UNITS Dextrose 50 ml UD PRN IV 08/21/24 09:30 Acetaminophen 650 mg Q6HP PRN PO 08/21/24 12:00 08/25/24 08:54 650 MG Diagnostic Test (Pha) 1 strip Q6HR 08/21/24 12:00 Cancel Insulin Human Regular FOLLOW SLIDING SCALE Q6HR SC 08/21/24 12:00 Cancel Dextrose 50 ml UD IV 08/21/24 10:00 Cancel Norepinephrine Bitartrate 16 mg/ Sodium Chloride 250 ml @ 0.938 mls/ hr Q24H IV 08/22/24 14:00 08/23/24 14:30 3.75 MLS/HR Thiamine HCl 100 mg DAILY IV 08/23/24 10:00 08/24/24 10:46 100 MG Melatonin 3 mg HS PO 08/22/24 22:00 08/24/24 21:37 3 MG Midodrine 10 mg TID@0600,1200,1800 PO 08/23/24 12:00 08/25/24 05:48 10 MG Carbidopa/Levodopa 0.5 tab TID PO 08/23/24 14:00 08/25/24 05:48 0.5 TAB objective General: the patient is well developed and nourished. No acute distress. MUSCULOSKELETAL EXAM: Pressure sores MENTAL STATUS: Awake, oriented to person place SPEECH, LANGUAGE, HIGHER CORTICAL FUNCTION: no aphasia or dysathria. CRANIAL NERVES: Pupils are equal, round and reactive. EOMs full and conjugate. No nystagmus. Facial sensation intact in all three divisions bilaterally. Mandibular strength intact. Facial muscles symmetrical and strength intact. SENSATION: Sensation to touch and pinprick is Ok MOTOR: Normal tone in the upper and lower extremity. Normal muscle bulk. No fasciculations. Mild tremor in the right hand, possible cogwheeling in both wrists. He moves the arms REFLEXES: Deep tendon reflexes normal and symmetrical. No pathological reflexes. CEREBELLAR/COORDINATION: Deferred GAIT/STATION: deferred laboratory and microbiology Laboratory Tests 08/25/24 03:22 08/24/24 03:05 Test 08/25/24 03:22 Range/Units Serum Glucose 109 H 74-106 mg/dL Problem List Altered mental status/metabolic encephalopathy secondary to Sepsis Septic shock Respiratory failure Urinary tract infection Dehydration Acute kidney failure Hypernatremia Rhabdomyolysis Hand tremors, gait disturbance, low voice Parkinson's disease Rule out essential tremor Pressure sores Assessment/Plan Monitoring Supportive treatment ICU care Respiratory support p.r.n. Stabilize vitals/personally drip Oxygen IV antiepileptics Hydration Increase the Sinemet 25/100, t.i.d. Current pain management Okay to use Tylenol for pain control Wound care DVT prophylaxis GI prophylaxis Pulmonary on case Nephrology on case Surgery on case More recommendation per clinical course This medical document was created using an electronic medical record system with [employer] computerized dictation system. Although this document has been carefully reviewed, there may still be some phonetic and typographical errors. These areas are purely typographical due to imperfections of the software programs, and do not reflect any compromise in the patient's medical care Prognosis poor Dietary Evaluation Review Comments: 1. If on Vent Consider Nepro 30ml/hr x 24 hr,( 58g pro 1274 kcal). this will support pt's needs at 100% protein, 94 % kcal. 2. If EN not possible, and NPO > 7 days, consider TPN per pharmacy. 3. If off Vent, and pass speech eval, offer Renal Specific -50g protein 2g Na 3 K Low phos, 4. If off vent on hemo dialysis, pass speech eval, offer Renal Standard 2 gNa 3 K, Low Phos diet. Expected Outcomes/Goals: advance to diet able to eat independently. Plan discussed with: Other EVELINE HUNTER MD Aug 25, 2024 09:41
[2024-08-25] MEDS: CARBIDOPA W LEVODOPA 25/100mg TABLET PO SCH (09:45)
[2024-08-25] MEDS ORDERED: HYDROcodone-ACET 5/325MG TAB PO PRN (10:00)
--- NOTE | 2024-08-25 10:03 | DVHPN2 ---
Subjective The patient is a little more confused today He needed mittens because he is pulling on lines He is still on Levophed drip Reviewed: Care Plan, H&P, Labs, Medications, Previous Orders, Radiology, Other (Consultants) Changes from previous H/P or p: Changes General: Per HPI Objective Vitals Vital Signs Date Time Temp Pulse Resp B/P (MAP) Pulse Ox O2 Delivery O2 Flow Rate FiO2 08/25/24 07:54 20 100 Room Air* 0 21 08/25/24 06:00 97 08/25/24 06:00 119/60 (79) 08/25/24 05:00 98.6 98.6 Intake/Output Intake and Output 08/25/24 07:00 Intake Total 2736.940 ml Output Total 2550 ml Balance 186.940 ml Intake Oral 600 ml IV Total 2136.940 ml Output Urine Total 2550 ml # Bowel Movements 1 General Appearance: Alert, Oriented X3, Cooperative, No acute distress HEENT: Atraumatic Lungs: Clear to auscultation, Normal air movement Cardiovascular: Regular rate, Normal S1, Normal S2 Abdomen: Normal bowel sounds, Soft, No tenderness Extremities: Other (Some bilateral lower extremities edema) Skin: Wounds (Upper back) Medications Current Medications Medications Dose Ordered Sig/Akiko Route Start Time Stop Time Status Last Admin Dose Admin Vancomycin HCl 200 ml @ 200 mls/hr Q12HR IV 08/10/24 22:00 UNV Pantoprazole Sodium 40 mg DAILY IV 08/11/24 10:00 08/25/24 09:36 40 MG Acetaminophen 650 mg Q6HP PRN KS 08/10/24 23:30 08/11/24 01:13 650 MG Enoxaparin Sodium 80 mg Q12H SC 08/14/24 12:30 08/24/24 23:36 80 MG Morphine Sulfate 1 mg Q3HP PRN IV 08/17/24 11:00 08/25/24 05:04 1 MG Piperacillin Sod/ Tazobactam Sod 100 ml @ 25 mls/hr Q8HR IV 08/18/24 14:00 08/25/24 05:46 25 MLS/HR Lactated Ringer's 1,000 ml @ 50 mls/hr Q20H IV 08/19/24 08:00 08/25/24 09:28 50 MLS/HR Enteral Nutritional Formula 240 ml TIDWM PO 08/20/24 18:00 08/24/24 18:09 240 ML Enteral Nutritional Formula 28.8 gm BIDBM PO 08/21/24 10:00 08/24/24 15:08 28.8 GM Insulin Glargine 10 units DAILY@1000 SC 08/21/24 10:00 08/24/24 11:35 10 UNITS Diagnostic Test (Pha) 1 strip Q6HR 08/21/24 12:00 08/25/24 05:39 1 STRIP Insulin Human Regular Q6HR SC 08/21/24 12:00 08/24/24 18:15 3 UNITS Dextrose 50 ml UD PRN IV 08/21/24 09:30 Acetaminophen 650 mg Q6HP PRN PO 08/21/24 12:00 08/25/24 08:54 650 MG Diagnostic Test (Pha) 1 strip Q6HR 08/21/24 12:00 Cancel Insulin Human Regular FOLLOW SLIDING SCALE Q6HR SC 08/21/24 12:00 Cancel Dextrose 50 ml UD IV 08/21/24 10:00 Cancel Norepinephrine Bitartrate 16 mg/ Sodium Chloride 250 ml @ 0.938 mls/ hr Q24H IV 08/22/24 14:00 08/23/24 14:30 3.75 MLS/HR Thiamine HCl 100 mg DAILY IV 08/23/24 10:00 08/25/24 09:36 100 MG Melatonin 3 mg HS PO 08/22/24 22:00 08/24/24 21:37 3 MG Midodrine 10 mg TID@0600,1200,1800 PO 08/23/24 12:00 08/25/24 05:48 10 MG Carbidopa/Levodopa 1 tab TID PO 08/25/24 09:45 Laboratory Results Laboratory Tests 08/24/24 03:05 08/25/24 03:22 Chemistry Test 08/25/24 03:22 Calcium Level 8.3 mg/dL (8.7-10.4) L Magnesium Level 1.7 mg/dL (1.6-2.6) Urinalysis Test 08/11/24 13:02 Urine Color Yellow (Yellow) Urine Clarity Turbid (Clear) H Urine pH 5.5 (5.0-9.0) Urine Specific [place] 1.018 (1.001-1.035) Urine Protein 1+ (Negative) H Urine Ketones Negative (Negative) Urine Blood 3+ /uL (Negative) H Urine Nitrite Negative (Negative) Urine Bilirubin Negative (Negative) Urine Urobilinogen 4 mg/dL (Negative) H Urine Leukocyte Esterase 1+ /uL (Negative) Urine RBC 13 /hpf (0 - 3) Urine WBC 14 /hpf (0 - 3) Urine Squamous Epithelial Cells Few /hpf (<5) Urine Bacteria Few /hpf (None Seen) H Urine Hyaline Casts Few /lpf (0 - 2) Urine Granular Casts Few /lpf (0) Urine Mucus Few (None Seen) Urine Creatinine 67.44 mg/dL (30.0-125.0) Urine Protein/Creatinine Ratio 1.00 Urine Sodium 32 mmol/L (40-220) L Urine Glucose Normal mg/dL (Normal) Urine Total Protein 67.3 mg/dL (1-14) H Microbiology Microbiology Date/Time Source Procedure Growth Status 08/22/24 15:28 Back Lumbar Gram Stain - Final Resulted 08/22/24 15:28 Back Lumbar Wound Culture - Preliminary Resulted 08/12/24 19:02 Bronchial Washings Gram Stain - Final Resulted 08/12/24 19:02 Respiratory Culture - Preliminary Klebsiella pneumoniae Presumptive Ema albicans Resulted 08/10/24 14:08 Blood Blood Culture - Final NO GROWTH AFTER 5 DAYS OF INCUBATION. Complete Assessment/Plan Assessment/Plan Acute hypoxic respiratory failure, Metabolic encephalopathy, Sepsis with septic shock Severe hypernatremia Severe dehydration DAYLIN due to vasomotor nephropathy Rhabdomyolysis Parkinson's disease Decubitus ulcer RLE DVT PLAN: 08/22/24: Parkinson's Disease: Resume Sinemet Sepsis with hypotension: Levophed drip, taper down as tolerated Hypernatremia: Better, continue TPN and IV fluids Protein malnutrition: Protein supplement Left buttock and sacral decubitus ulcers: Get wound cultures, IV antibiotics: Zosyn DAYLIN: Better, continue IV fluids DVT: Lovenox Add thiamine IV Check B12 and Folic acid and ammonia 08/23/24: Add Midodrine 10 mg tid Advance diet to pureed Taper down the Levophed as tolerated Continue IV antibiotics We will stop TPN if he tolerates. Diet Once off the Levophed then we can downgrade from ICU 08/24/2024: Continue midodrine Tapered down the Levophed and stop if tolerated Downgrade to tele if he stays off the Levophed for 4 hours Continue diet as tolerated Discontinue TPN Continue physical therapy Continue IV fluids with LR Wound culture showed Enterococcus faecalis, on Zosyn Continue Sinemet 08/25/2024: Tapered the Levophed drip off if possible and downgrade the patient to tele Continue midodrine Advance diet Discontinue morphine and give [place] instead for moderate pain Physical therapy IV fluids with LR Plan discussed with: Patient, Other My Orders Orders - JELENA GAINES MD Procedure Category Date Status Time Transfer Orders XFER 08/24/24 Transmitted 17:05 Glucose Blood PHA 08/25/24 Logged (Accu-Chek Comfort 11:30 Insulin R (Human) PHA 08/25/24 Logged (Insulin R) 11:30 Date of Service: Aug 25, 2024 Billing Provider: JELENA GAINES MD Common Visit Codes: NOT BILLABLE JELENA GAINES MD Aug 25, 2024 10:03
[2024-08-25] MEDS: InsuLIN REG 1unit/0.01ml Soln (100units/ml) SC SCH (11:30)
[2024-08-25] MEDS: ACCU-CHEK COMFORT CURVE STRIP VI SCH (11:30)
[2024-08-25] MEDS: MAGNESIUM SULFATE 1GM/100ML 100 ML IV SCH (12:27)
[2024-08-25 15:10] LABS: Hematocrit 24.8 % (41.0-53.0); Hemoglobin 8.5 g/dL (13.5-17.5)
[2024-08-25] MEDS: ACETAMINOPHEN 325 MG TAB PO PRN ×2 (16:14)
[2024-08-25 19:01] LABS: Chloride 105 mmol/L (98-107); Potassium 4.1 mmol/L (3.5-5.1); Sodium 137 mmol/L (136-145)
[2024-08-25 19:02] LABS: Anion Gap 5 (5-15); Carbon Dioxide 27 mmol/L (20-31)
[2024-08-25 19:03] LABS: Calcium 8.2 mg/dL (8.7-10.4)
[2024-08-25 19:07] LABS: BUN/Creatinine Ratio 31.4 (10.0-20.0); Glucose 100 mg/dL (74-106); Magnesium 2.2 mg/dL (1.6-2.6)
[2024-08-25 19:11] LABS: Blood Urea Nitrogen 27 mg/dL (9-23)
--- NOTE | 2024-08-25 23:34 | DVHPN2 ---
Progress Note - Dictate Date Seen: Aug 25, 2024 Medical Necessity Reason Pt with a Central, PICC or Fol: Yes The following are medically ne: Powell Catheter Reason for powell catheter: Strict I&O Subjective Patient seen and examined at bedside. Breathing on room air. Overnight events reviewed. vital signs Vital Sign Date Time Temp Pulse Resp B/P (MAP) Pulse Ox O2 Delivery O2 Flow Rate FiO2 08/25/24 19:00 83 22 93/44 (60) 100 08/25/24 18:00 Room Air* 0 21 08/25/24 16:00 98.9 98.9 Total Intake and Output 08/24/24 08/24/24 08/25/24 15:00 23:00 07:00 Intake Total 1083.502 ml 898.438 ml 755.00 ml Output Total 1400 ml 1150 ml Balance 1083.502 ml -501.562 ml -395.00 ml medications Current Medications Medications Dose Ordered Sig/Akiko Route Start Time Stop Time Status Last Admin Dose Admin Vancomycin HCl 200 ml @ 200 mls/hr Q12HR IV 08/10/24 22:00 UNV Pantoprazole Sodium 40 mg DAILY IV 08/11/24 10:00 08/25/24 09:36 40 MG Piperacillin Sod/ Tazobactam Sod 100 ml @ 25 mls/hr Q8HR IV 08/18/24 14:00 08/25/24 21:26 25 MLS/HR Lactated Ringer's 1,000 ml @ 50 mls/hr Q20H IV 08/19/24 08:00 08/25/24 09:28 50 MLS/HR Enteral Nutritional Formula 240 ml TIDWM PO 08/20/24 18:00 08/25/24 18:00 240 ML Enteral Nutritional Formula 28.8 gm BIDBM PO 08/21/24 10:00 08/25/24 13:00 28.8 GM Insulin Glargine 10 units DAILY@1000 SC 08/21/24 10:00 08/25/24 10:00 10 UNITS Dextrose 50 ml UD PRN IV 08/21/24 09:30 Diagnostic Test (Pha) 1 strip Q6HR 08/21/24 12:00 Cancel Insulin Human Regular FOLLOW SLIDING SCALE Q6HR SC 08/21/24 12:00 Cancel Dextrose 50 ml UD IV 08/21/24 10:00 Cancel Norepinephrine Bitartrate 16 mg/ Sodium Chloride 250 ml @ 0.938 mls/ hr Q24H IV 08/22/24 14:00 08/23/24 14:30 3.75 MLS/HR Thiamine HCl 100 mg DAILY IV 08/23/24 10:00 08/25/24 09:36 100 MG Melatonin 3 mg HS PO 08/22/24 22:00 08/25/24 21:26 3 MG Midodrine 10 mg TID@0600,1200,1800 PO 08/23/24 12:00 08/25/24 18:41 10 MG Carbidopa/Levodopa 1 tab TID PO 08/25/24 09:45 08/25/24 21:26 1 TAB Diagnostic Test (Pha) 1 strip ACHS 08/25/24 11:30 08/25/24 21:21 1 STRIP Insulin Human Regular ACHS SC 08/25/24 11:30 Acetaminophen/ Hydrocodone Bitart 1 tab Q6HPRN PRN PO 08/25/24 10:00 Hold Morphine Sulfate 2 mg Q4HPRN PRN IV 08/25/24 12:45 Acetaminophen 650 mg Q6HPRN PRN PO 08/25/24 16:00 08/25/24 17:47 650 MG objective Gen.: Patient lying in bed in no apparent distress. Breathing on room air. Head: Normocephalic, atraumatic. Eyes: EOMI/PERRLA. Ears: Normal hearing. Normal anatomy. Neck/trachea: Trachea midline, supple. Nose: Normal external anatomy. Mouth: Moist mucous membranes. Chest: Decreased air entry bilaterally. No wheezing or rhonchi. Cardiovascular: Positive S1, positive S2. Regular rate and rhythm. Abdomen: Positive bowel sounds in all 4 quadrants. Soft, non-tender, non- distended. : Deferred. Rectal: Deferred. Skin: Warm, dry. Intact. Extremities: 2+ radial pulses bilaterally. No lower extremity edema. Neuro: Awake, alert, oriented x3. No gross motor or sensory deficits. Cranial nerves II through XII intact. Gait not assessed. laboratory and microbiology Laboratory Tests 08/25/24 18:00 08/25/24 14:40 08/24/24 03:05 Test 08/25/24 18:00 Range/Units Serum Glucose 100 74-106 mg/dL Assessment/Plan Impression: Acute hypoxic respiratory failure Leukocytosis Hypernatremia Parkinson's disease Acute metabolic encephalopathy Decubitus ulcers Sepsis Rhabdomyolysis Acute kidney injury Events: Remains on room air. No respiratory distress. Pressors for hemodynamic support. On Levophed 3 mcg/min Titrate to keep MAP above 65 mmHg/SBP above 90 mmHg. On midodrine. Continue antibiotics - Zosyn IV fluids with LR 25 ml/hr. Wound care Accu-Cheks for glycemic monitoring Re-consult Surgery (Dr. Ziyad German) for evaluation for debridement Family concerned and requests reevaluation by Surgery. Head of bed elevation Aspiration precautions Brain MRI done 08/19/24 showed no evidence of acute intracranial abnormality. Labs and imaging reviewed. Rest of plan as noted below. Plan: S/p extubation 08/15/24 Breathing on room air. Supplemental O2 PRN. CT head: No acute intracranial hemorrhage or stroke. Pressors for hemodynamic support. Titrate to keep MAP above 65 mmHg/SBP above 90 mmHg. Antibiotics. Monitor renal function due to Acute kidney injury. Monitor electrolytes. Supplement as necessary. Monitor sodium due to hypernatremia, Na 153 on 08/17/24 IV fluid hydration Do not over correct sodium. Nutritional support. Accu-Cheks, ISS. GI prophylaxis - Protonix DVT prophylaxis. Condition: Critical Prognosis: Poor given multiple comorbidities. Rest of plan per hospitalist and other consultants. A total of 35 minutes of critical care time was spent reviewing the patient record, examining the patient, making a diagnostic and therapeutic plan, discussing this plan with the medical personnel, following up on diagnostic studies and following the patient for clinical stability excluding any and all procedures. At least 50% of this time was spent in direct, [id number] contact. Thank you Dr. Newman for allowing me to participate in this patient's care. Further recommendations will depend on patient's clinical course. Please do not hesitate to contact me if you have any questions or concerns. This medical document was created using an electronic medical record system with [employer] system. Although this document has been carefully reviewed, there may still be some phonetic and typographical errors. These areas are purely typographical due to imperfections of the software programs, and do not reflect any compromise in the patient's medical care. Dietary Evaluation Review Comments: 1. If on Vent Consider Nepro 30ml/hr x 24 hr,( 58g pro 1274 kcal). this will support pt's needs at 100% protein, 94 % kcal. 2. If EN not possible, and NPO > 7 days, consider TPN per pharmacy. 3. If off Vent, and pass speech eval, offer Renal Specific -50g protein 2g Na 3 K Low phos, 4. If off vent on hemo dialysis, pass speech eval, offer Renal Standard 2 gNa 3 K, Low Phos diet. Expected Outcomes/Goals: advance to diet able to eat independently. Plan discussed with: Other (SRAVANI Tse) Critical Care Time(min): 35 REY REAGAN MD Aug 25, 2024 23:33
[2024-08-25 23:51] LABS: Basophils # (auto) 0 10 ^3/uL (0-0.2); Basophils % (auto) 0.6 % (0.0-2.0); Eosinophils # (auto) 0.2 10 ^3/uL (0-0.8); Eosinophils % (auto) 2.4 % (0.0-7.0); Hematocrit 24.9 % (41.0-53.0); Hemoglobin 8.4 g/dL (13.5-17.5); Lymphocytes # (auto) 1.3 10 ^3/uL (0.4-5.4); Lymphocytes % (auto) 20.3 % (10.0-50.0); Mean Corpuscular Hemoglobin 29.9 pg (28.0-32.0); Mean Corpuscular Hgb Conc. 33.7 g/dL (32.0-36.0); Mean Corpuscular Volume 88.5 fL (80.0-100.0); Monocytes # (auto) 0.3 10 ^3/uL (0-1.3); Monocytes % (auto) 5.3 % (0.0-12.0); Neutrophils # (auto) 4.4 10 ^3/uL (1.6-8.6); Neutrophils % (auto) 71.4 % (37.0-80.0); Nucleated Red Blood Cells % 0.1 %; Platelet Count (auto) 232 10^3/uL (140-450); Red Blood Cells 2.82 10^6/uL (4.5-5.90); Red Cell Distribution Width 12.8 % (11.8-14.3); White Blood Cell 6.2 10^3/uL (4.4-10.8)
[2024-08-26] VITALS (93 sets, daily range): BP systolic 85–125; BP diastolic 31–60; PULSE 78–95; RESP 10–30; TEMP 98–98.8; O2SAT 100
[2024-08-26] MEDS: MORPHINE SULFATE INJ 2 MG/ml SYRG IV PRN (02:22)
[2024-08-26 04:35] LABS: Basophils # (auto) 0 10 ^3/uL (0-0.2); Basophils % (auto) 0.6 % (0.0-2.0); Hemoglobin 8.4 g/dL (13.5-17.5); Mean Corpuscular Hgb Conc. 33.9 g/dL (32.0-36.0); Monocytes # (auto) 0.3 10 ^3/uL (0-1.3); Monocytes % (auto) 5.3 % (0.0-12.0)
[2024-08-26 04:38] LABS: Eosinophils # (auto) 0.2 10 ^3/uL (0-0.8); Eosinophils % (auto) 2.7 % (0.0-7.0); Hematocrit 24.8 % (41.0-53.0); Lymphocytes # (auto) 1.2 10 ^3/uL (0.4-5.4); Mean Corpuscular Volume 88.3 fL (80.0-100.0); Neutrophils # (auto) 4.4 10 ^3/uL (1.6-8.6); Neutrophils % (auto) 72.4 % (37.0-80.0); Platelet Count (auto) 233 10^3/uL (140-450); Red Blood Cells 2.81 10^6/uL (4.5-5.90); White Blood Cell 6.1 10^3/uL (4.4-10.8)
[2024-08-26 04:59] LABS: Alanine Aminotransferase 26 U/L (7-40); Anion Gap 4 (5-15); BUN/Creatinine Ratio 26.7 (10.0-20.0); Bilirubin, Total 0.8 mg/dL (0.2-1.0); Carbon Dioxide 26 mmol/L (20-31); Chloride 106 mmol/L (98-107); Glucose 83 mg/dL (74-106); Potassium 3.8 mmol/L (3.5-5.1); Sodium 136 mmol/L (136-145)
[2024-08-26 05:24] LABS: Albumin 2.7 g/dL (3.2-4.8); Alkaline Phosphatase 185 U/L (46-116); Aspartate Aminotransferase 50 U/L (13-40); Blood Urea Nitrogen 23 mg/dL (9-23); Calcium 8.2 mg/dL (8.7-10.4); Total Protein 5.5 g/dL (5.7-8.2)
--- NOTE | 2024-08-26 10:11 | MEDREC ---
[facility] ASP Intervention Section I [facility] ASP Intervention: Deescalate AB based on CS (THE RESPIRATORY CULTURE SHOWED KLEBSIELLA PNEUMONIAE AND PRESUMPTVE DMITRI ALBICANS (ON 08/15). THE FINAL WOUND CULTURE (ON 08/25) SHOWED ENTEROCOCCUS FAECIUM - VRE. PLEASE DE-ESCALATE ANTIBIOTICS BASED ON CULTURE RESULT AND SUSCEPTIBILITY) TRACY GOLDBERG Aug 26, 2024 10:11
--- NOTE | 2024-08-26 10:27 | DVHPN2 ---
Subjective The patient is a little more confused today He needed mittens because he is pulling on lines He is still on Levophed drip Reviewed: Care Plan, H&P, Labs, Medications, Previous Orders, Radiology, Other (Consultants) Changes from previous H/P or p: Changes General: Per HPI Objective Vitals Vital Signs Date Time Temp Pulse Resp B/P (MAP) Pulse Ox O2 Delivery O2 Flow Rate FiO2 08/26/24 08:00 25 100 Room Air* 0 21 08/26/24 08:00 93 08/26/24 07:45 92/45 (61) 08/26/24 06:00 98.3 98.3 Intake/Output Intake and Output 08/26/24 07:00 Intake Total 4040.636 ml Output Total 2200 ml Balance 1840.636 ml Intake Oral 2650 ml IV Total 1390.636 ml Output Urine Total 2200 ml General Appearance: Alert, Oriented X3, Cooperative, No acute distress HEENT: Atraumatic Lungs: Clear to auscultation, Normal air movement Cardiovascular: Regular rate, Normal S1, Normal S2 Abdomen: Normal bowel sounds, Soft, No tenderness Extremities: Other (Some bilateral lower extremities edema) Skin: Wounds (Upper back) Medications Current Medications Medications Dose Ordered Sig/Akiko Route Start Time Stop Time Status Last Admin Dose Admin Vancomycin HCl 200 ml @ 200 mls/hr Q12HR IV 08/10/24 22:00 UNV Pantoprazole Sodium 40 mg DAILY IV 08/11/24 10:00 08/26/24 09:36 40 MG Piperacillin Sod/ Tazobactam Sod 100 ml @ 25 mls/hr Q8HR IV 08/18/24 14:00 08/26/24 06:06 25 MLS/HR Lactated Ringer's 1,000 ml @ 50 mls/hr Q20H IV 08/19/24 08:00 08/25/24 09:28 50 MLS/HR Enteral Nutritional Formula 240 ml TIDWM PO 08/20/24 18:00 08/26/24 08:00 240 ML Enteral Nutritional Formula 28.8 gm BIDBM PO 08/21/24 10:00 08/26/24 09:18 28.8 GM Insulin Glargine 10 units DAILY@1000 SC 08/21/24 10:00 08/25/24 10:00 10 UNITS Dextrose 50 ml UD PRN IV 08/21/24 09:30 Diagnostic Test (Pha) 1 strip Q6HR 08/21/24 12:00 Cancel Insulin Human Regular FOLLOW SLIDING SCALE Q6HR SC 08/21/24 12:00 Cancel Dextrose 50 ml UD IV 08/21/24 10:00 Cancel Norepinephrine Bitartrate 16 mg/ Sodium Chloride 250 ml @ 0.938 mls/ hr Q24H IV 08/22/24 14:00 08/23/24 14:30 3.75 MLS/HR Thiamine HCl 100 mg DAILY IV 08/23/24 10:00 08/26/24 09:36 100 MG Melatonin 3 mg HS PO 08/22/24 22:00 08/25/24 21:26 3 MG Midodrine 10 mg TID@0600,1200,1800 PO 08/23/24 12:00 08/26/24 06:06 10 MG Carbidopa/Levodopa 1 tab TID PO 08/25/24 09:45 08/26/24 06:06 1 TAB Diagnostic Test (Pha) 1 strip ACHS 08/25/24 11:30 08/26/24 06:15 1 STRIP Insulin Human Regular ACHS SC 08/25/24 11:30 Acetaminophen/ Hydrocodone Bitart 1 tab Q6HPRN PRN PO 08/25/24 10:00 Hold Morphine Sulfate 2 mg Q4HPRN PRN IV 08/25/24 12:45 08/26/24 02:22 2 MG Acetaminophen 650 mg Q6HPRN PRN PO 08/25/24 16:00 08/26/24 09:37 650 MG Laboratory Results Laboratory Tests 08/26/24 03:59 Chemistry Test 08/25/24 18:00 08/26/24 03:59 Calcium Level 8.2 mg/dL (8.7-10.4) L 8.2 mg/dL (8.7-10.4) L Magnesium Level 2.2 mg/dL (1.6-2.6) 2.0 mg/dL (1.6-2.6) Albumin 2.7 g/dL (3.2-4.8) L Total Protein 5.5 g/dL (5.7-8.2) L LFT Test 08/26/24 03:59 Alanine Aminotransferase (ALT) 26 U/L (7-40) Alkaline Phosphatase 185 U/L (46-116) H Aspartate Amino Transferase (AST) 50 U/L (13-40) H Total Bilirubin 0.8 mg/dL (0.2-1.0) Urinalysis Test 08/11/24 13:02 Urine Color Yellow (Yellow) Urine Clarity Turbid (Clear) H Urine pH 5.5 (5.0-9.0) Urine Specific [place] 1.018 (1.001-1.035) Urine Protein 1+ (Negative) H Urine Ketones Negative (Negative) Urine Blood 3+ /uL (Negative) H Urine Nitrite Negative (Negative) Urine Bilirubin Negative (Negative) Urine Urobilinogen 4 mg/dL (Negative) H Urine Leukocyte Esterase 1+ /uL (Negative) Urine RBC 13 /hpf (0 - 3) Urine WBC 14 /hpf (0 - 3) Urine Squamous Epithelial Cells Few /hpf (<5) Urine Bacteria Few /hpf (None Seen) H Urine Hyaline Casts Few /lpf (0 - 2) Urine Granular Casts Few /lpf (0) Urine Mucus Few (None Seen) Urine Creatinine 67.44 mg/dL (30.0-125.0) Urine Protein/Creatinine Ratio 1.00 Urine Sodium 32 mmol/L (40-220) L Urine Glucose Normal mg/dL (Normal) Urine Total Protein 67.3 mg/dL (1-14) H Microbiology Microbiology Date/Time Source Procedure Growth Status 08/22/24 15:28 Back Lumbar Gram Stain - Final Complete 08/22/24 15:28 Wound Culture - Final Enterococcus faecium - VRE Complete 08/12/24 19:02 Bronchial Washings Gram Stain - Final Resulted 08/12/24 19:02 Respiratory Culture - Preliminary Klebsiella pneumoniae Presumptive Ema albicans Resulted 08/10/24 14:08 Blood Blood Culture - Final NO GROWTH AFTER 5 DAYS OF INCUBATION. Complete Assessment/Plan Assessment/Plan Acute hypoxic respiratory failure, Metabolic encephalopathy, Sepsis with septic shock Severe hypernatremia Severe dehydration DAYLIN due to vasomotor nephropathy Rhabdomyolysis Parkinson's disease Decubitus ulcer RLE DVT PLAN: 08/22/24: Parkinson's Disease: Resume Sinemet Sepsis with hypotension: Levophed drip, taper down as tolerated Hypernatremia: Better, continue TPN and IV fluids Protein malnutrition: Protein supplement Left buttock and sacral decubitus ulcers: Get wound cultures, IV antibiotics: Zosyn DAYLIN: Better, continue IV fluids DVT: Lovenox Add thiamine IV Check B12 and Folic acid and ammonia 08/23/24: Add Midodrine 10 mg tid Advance diet to pureed Taper down the Levophed as tolerated Continue IV antibiotics We will stop TPN if he tolerates. Diet Once off the Levophed then we can downgrade from ICU 08/24/2024: Continue midodrine Tapered down the Levophed and stop if tolerated Downgrade to tele if he stays off the Levophed for 4 hours Continue diet as tolerated Discontinue TPN Continue physical therapy Continue IV fluids with LR Wound culture showed Enterococcus faecalis, on Zosyn Continue Sinemet 08/25/2024: Tapered the Levophed drip off if possible and downgrade the patient to tele Continue midodrine Advance diet Discontinue morphine and give [place] instead for moderate pain Physical therapy IV fluids with LR Plan discussed with: Patient, Other My Orders Orders - JELENA GAINES MD Procedure Category Date Status Time Morphine Sulfate PHA 08/25/24 In Process Injection 12:45 Acetaminophen Tablet PHA 08/25/24 In Process (Tylenol Tablet) 16:00 Date of Service: Aug 26, 2024 Billing Provider: JELENA GAINES MD Common Visit Codes: NOT BILLABLE JELENA GAINES MD Aug 26, 2024 10:27
--- NOTE | 2024-08-26 13:57 | DVHPN2 ---
Progress Note - Dictate Date Seen: Aug 26, 2024 Medical Necessity Reason Pt with a Central, PICC or Fol: Yes The following are medically ne: Powell Catheter Reason for powell catheter: Strict I&O Subjective Mr. Howard is a 78 years old right-handed gentleman with a history of Parkinson's disease, the patient was admitted on 08/10 24 with a chief company of altered mental status I have seen in the ICU and examined the patient, I have discussed with his nurse, he is doing fine, oriented to person, place only, socially appropriate Respiratory culture, 08/12/2024: Klebsiella pneumoniae Blood culture, 08/10/24: Negative UDS, 08/10/2024: Negative Urinalysis, 08/10/2024: WBC 10, urine leukocyte: Trace WBC/HB/PLT/MCV, 08/20/24: 6.5/10.5/205/88.8 PT/INR/PTT, 08/14/2024: 13.9/1.34/30.9 Na, 08/10/2024: 170, 168, 08/11/2024: 165, 08/12/2024: 164, 08/13/2024: 161, 08/14/2024: 156, 08/19/2024: 149, 08/20/24: 149, 08/23/2023: 142 BUN/CR, 08/18/2024: 45/1.01, 08/20/2024: 42/1.07 CPK, 08/10/2024: 2513, 08/11/2024: 2525, 08/12/2024: 2844, 08/13/2024: 4268, 08/21/2024: 510 TBI/AST/ALT/AP, 08/20/2024: 1.4/148/210/179, 08/23/2024: 08/23/2024: 0.9/61/104/180 Ammonia, 08/23/2024: < 10 Hepatitis panel, 08/11/2024: Negative TSH, 08/11/2024: 4.48 Venous Doppler, lower extremities, 08/13/2024: No left DVT. Positive DVT involving the right lower extremity common femoral vein, femoral vein, popliteal vein and calf Chest x-ray, 08/10/2024: No acute cardiopulmonary disease. Elevation of the left hemidiaphragm. Enteric tube and endotracheal tube are in satisfactory position Chest x-ray, 08/21/2024: Increased congestion CT head, 08/10/2024: 1. No acute intracranial hemorrhage, midline shift or mass effect. 2. Generalized brain atrophy. 3. Small vessel ischemic/degenerative changes. 4. If symptoms persists, further evaluation with MRI is recommended MRI head, 08/19/2024: 1. No evidence of acute intracranial abnormality. 2. Motion limited study vital signs Vital Sign Date Time Temp Pulse Resp B/P (MAP) Pulse Ox O2 Delivery O2 Flow Rate FiO2 08/26/24 12:00 20 100 Room Air* 0 21 08/26/24 12:00 88 08/26/24 07:45 92/45 (61) 08/26/24 06:00 98.3 98.3 Total Intake and Output 08/25/24 08/25/24 08/26/24 14:59 22:59 06:59 Intake Total 424.378 ml 2322.504 ml 1294.691 ml Output Total 1150 ml 1050 ml Balance 424.378 ml 1172.504 ml 244.691 ml medications Current Medications Medications Dose Ordered Sig/Akiko Route Start Time Stop Time Status Last Admin Dose Admin Vancomycin HCl 200 ml @ 200 mls/hr Q12HR IV 08/10/24 22:00 UNV Pantoprazole Sodium 40 mg DAILY IV 08/11/24 10:00 08/26/24 09:36 40 MG Piperacillin Sod/ Tazobactam Sod 100 ml @ 25 mls/hr Q8HR IV 08/18/24 14:00 08/26/24 12:07 25 MLS/HR Lactated Ringer's 1,000 ml @ 50 mls/hr Q20H IV 08/19/24 08:00 08/25/24 09:28 50 MLS/HR Enteral Nutritional Formula 240 ml TIDWM PO 08/20/24 18:00 08/26/24 12:08 240 ML Dextrose 50 ml UD PRN IV 08/21/24 09:30 Diagnostic Test (Pha) 1 strip Q6HR 08/21/24 12:00 Cancel Insulin Human Regular FOLLOW SLIDING SCALE Q6HR SC 08/21/24 12:00 Cancel Dextrose 50 ml UD IV 08/21/24 10:00 Cancel Norepinephrine Bitartrate 16 mg/ Sodium Chloride 250 ml @ 0.938 mls/ hr Q24H IV 08/22/24 14:00 08/23/24 14:30 3.75 MLS/HR Thiamine HCl 100 mg DAILY IV 08/23/24 10:00 08/26/24 09:36 100 MG Melatonin 3 mg HS PO 08/22/24 22:00 08/25/24 21:26 3 MG Midodrine 10 mg TID@0600,1200,1800 PO 08/23/24 12:00 08/26/24 12:08 10 MG Carbidopa/Levodopa 1 tab TID PO 08/25/24 09:45 08/26/24 12:08 1 TAB Diagnostic Test (Pha) 1 strip ACHS 08/25/24 11:30 08/26/24 11:30 1 STRIP Insulin Human Regular ACHS SC 08/25/24 11:30 Acetaminophen/ Hydrocodone Bitart 1 tab Q6HPRN PRN PO 08/25/24 10:00 Hold Morphine Sulfate 2 mg Q4HPRN PRN IV 08/25/24 12:45 08/26/24 02:22 2 MG Acetaminophen 650 mg Q6HPRN PRN PO 08/25/24 16:00 08/26/24 09:37 650 MG Enteral Nutritional Formula 28.8 gm TID PO 08/26/24 14:00 objective General: the patient is well developed and nourished. No acute distress. MUSCULOSKELETAL EXAM: Pressure sores MENTAL STATUS: Awake, oriented to person place SPEECH, LANGUAGE, HIGHER CORTICAL FUNCTION: no aphasia or dysathria. CRANIAL NERVES: Pupils are equal, round and reactive. EOMs full and conjugate. No nystagmus. Facial sensation intact in all three divisions bilaterally. Mandibular strength intact. Facial muscles symmetrical and strength intact. SENSATION: Sensation to touch and pinprick is Ok MOTOR: Normal tone in the upper and lower extremity. Normal muscle bulk. No fasciculations. Mild tremor in the right hand, possible cogwheeling in both wrists. He moves the arms REFLEXES: Deep tendon reflexes normal and symmetrical. No pathological reflexes. CEREBELLAR/COORDINATION: Deferred GAIT/STATION: deferred laboratory and microbiology Laboratory Tests 08/26/24 03:59 Test 08/26/24 03:59 Range/Units Serum Glucose 83 74-106 mg/dL Problem List Altered mental status/metabolic encephalopathy secondary to Sepsis Septic shock Respiratory failure Urinary tract infection Dehydration Acute kidney failure Hypernatremia Rhabdomyolysis Hand tremors, gait disturbance, low voice Parkinson's disease Rule out essential tremor Pressure sores Assessment/Plan Monitoring Supportive treatment ICU care Respiratory support p.r.n. Stabilize vitals Oxygen IV antiepileptics Hydration Sinemet 25/100, t.i.d. Midodrine Current pain management Okay to use Tylenol for pain control Wound care DVT prophylaxis GI prophylaxis Pulmonary on case Nephrology on case Surgery on case More recommendation per clinical course This medical document was created using an electronic medical record system with [employer] dictation system. Although this document has been carefully reviewed, there may still be some phonetic and typographical errors. These areas are purely typographical due to imperfections of the software programs, and do not reflect any compromise in the patient's medical care Prognosis poor Dietary Evaluation Review Comments: 1. If on Vent Consider Nepro 30ml/hr x 24 hr,( 58g pro 1274 kcal). this will support pt's needs at 100% protein, 94 % kcal. 2. If EN not possible, and NPO > 7 days, consider TPN per pharmacy. 3. If off Vent, and pass speech eval, offer Renal Specific -50g protein 2g Na 3 K Low phos, 4. If off vent on hemo dialysis, pass speech eval, offer Renal Standard 2 gNa 3 K, Low Phos diet. Expected Outcomes/Goals: advance to diet able to eat independently. Plan discussed with: Other EVELINE HUNTER MD Aug 26, 2024 13:57
[2024-08-26] MEDS: Juven Fruit Punch Powder PACKET 28.8gm PO SCH (14:00)
[2024-08-26] MEDS ORDERED: LINEZOLID 600MG/300ML 300 ML IV ONE (15:00)
--- NOTE | 2024-08-26 17:49 | DVHPN2 ---
Subjective Still on Levophed drip More alert Reviewed: Care Plan, H&P, Labs, Medications, Previous Orders, Radiology, Other (Consultants) Changes from previous H/P or p: Changes General: Per HPI Objective Vitals Vital Signs Date Time Temp Pulse Resp B/P (MAP) Pulse Ox O2 Delivery O2 Flow Rate FiO2 08/26/24 16:00 17 100 Room Air* 0 21 08/26/24 16:00 91 08/26/24 07:45 92/45 (61) 08/26/24 06:00 98.3 98.3 Intake/Output Intake and Output 08/26/24 07:00 Intake Total 4040.636 ml Output Total 2200 ml Balance 1840.636 ml Intake Oral 2650 ml IV Total 1390.636 ml Output Urine Total 2200 ml General Appearance: Alert, Oriented X3, Cooperative, No acute distress HEENT: Atraumatic Lungs: Clear to auscultation, Normal air movement Cardiovascular: Regular rate, Normal S1, Normal S2 Abdomen: Normal bowel sounds, Soft, No tenderness Extremities: Other (Some bilateral lower extremities edema) Skin: Wounds (Upper back) Medications Current Medications Medications Dose Ordered Sig/Akiko Route Start Time Stop Time Status Last Admin Dose Admin Vancomycin HCl 200 ml @ 200 mls/hr Q12HR IV 08/10/24 22:00 UNV Pantoprazole Sodium 40 mg DAILY IV 08/11/24 10:00 08/26/24 09:36 40 MG Lactated Ringer's 1,000 ml @ 50 mls/hr Q20H IV 08/19/24 08:00 08/25/24 09:28 50 MLS/HR Enteral Nutritional Formula 240 ml TIDWM PO 08/20/24 18:00 08/26/24 12:08 240 ML Dextrose 50 ml UD PRN IV 08/21/24 09:30 Diagnostic Test (Pha) 1 strip Q6HR 08/21/24 12:00 Cancel Insulin Human Regular FOLLOW SLIDING SCALE Q6HR SC 08/21/24 12:00 Cancel Dextrose 50 ml UD IV 08/21/24 10:00 Cancel Norepinephrine Bitartrate 16 mg/ Sodium Chloride 250 ml @ 0.938 mls/ hr Q24H IV 08/22/24 14:00 08/23/24 14:30 3.75 MLS/HR Thiamine HCl 100 mg DAILY IV 08/23/24 10:00 08/26/24 09:36 100 MG Melatonin 3 mg HS PO 08/22/24 22:00 08/25/24 21:26 3 MG Midodrine 10 mg TID@0600,1200,1800 PO 08/23/24 12:00 08/26/24 12:08 10 MG Carbidopa/Levodopa 1 tab TID PO 08/25/24 09:45 08/26/24 12:08 1 TAB Diagnostic Test (Pha) 1 strip ACHS 08/25/24 11:30 08/26/24 11:30 1 STRIP Insulin Human Regular ACHS SC 08/25/24 11:30 Acetaminophen/ Hydrocodone Bitart 1 tab Q6HPRN PRN PO 08/25/24 10:00 Hold Morphine Sulfate 2 mg Q4HPRN PRN IV 08/25/24 12:45 08/26/24 02:22 2 MG Acetaminophen 650 mg Q6HPRN PRN PO 08/25/24 16:00 08/26/24 09:37 650 MG Enteral Nutritional Formula 28.8 gm TID PO 08/26/24 14:00 Linezolid 300 ml @ 150 mls/hr Q12HR IV 08/26/24 22:00 Laboratory Results Laboratory Tests 08/26/24 03:59 Chemistry Test 08/25/24 18:00 08/26/24 03:59 Calcium Level 8.2 mg/dL (8.7-10.4) L 8.2 mg/dL (8.7-10.4) L Magnesium Level 2.2 mg/dL (1.6-2.6) 2.0 mg/dL (1.6-2.6) Albumin 2.7 g/dL (3.2-4.8) L Total Protein 5.5 g/dL (5.7-8.2) L LFT Test 08/26/24 03:59 Alanine Aminotransferase (ALT) 26 U/L (7-40) Alkaline Phosphatase 185 U/L (46-116) H Aspartate Amino Transferase (AST) 50 U/L (13-40) H Total Bilirubin 0.8 mg/dL (0.2-1.0) Urinalysis Test 08/11/24 13:02 Urine Color Yellow (Yellow) Urine Clarity Turbid (Clear) H Urine pH 5.5 (5.0-9.0) Urine Specific [place] 1.018 (1.001-1.035) Urine Protein 1+ (Negative) H Urine Ketones Negative (Negative) Urine Blood 3+ /uL (Negative) H Urine Nitrite Negative (Negative) Urine Bilirubin Negative (Negative) Urine Urobilinogen 4 mg/dL (Negative) H Urine Leukocyte Esterase 1+ /uL (Negative) Urine RBC 13 /hpf (0 - 3) Urine WBC 14 /hpf (0 - 3) Urine Squamous Epithelial Cells Few /hpf (<5) Urine Bacteria Few /hpf (None Seen) H Urine Hyaline Casts Few /lpf (0 - 2) Urine Granular Casts Few /lpf (0) Urine Mucus Few (None Seen) Urine Creatinine 67.44 mg/dL (30.0-125.0) Urine Protein/Creatinine Ratio 1.00 Urine Sodium 32 mmol/L (40-220) L Urine Glucose Normal mg/dL (Normal) Urine Total Protein 67.3 mg/dL (1-14) H Microbiology Microbiology Date/Time Source Procedure Growth Status 08/22/24 15:28 Back Lumbar Gram Stain - Final Complete 08/22/24 15:28 Wound Culture - Final Enterococcus faecium - VRE Complete 08/12/24 19:02 Bronchial Washings Gram Stain - Final Resulted 08/12/24 19:02 Respiratory Culture - Preliminary Klebsiella pneumoniae Presumptive Ema albicans Resulted 08/10/24 14:08 Blood Blood Culture - Final NO GROWTH AFTER 5 DAYS OF INCUBATION. Complete Assessment/Plan Assessment/Plan Acute hypoxic respiratory failure, Metabolic encephalopathy, Sepsis with septic shock Severe hypernatremia Severe dehydration DAYLIN due to vasomotor nephropathy Rhabdomyolysis Parkinson's disease Decubitus ulcer RLE DVT PLAN: 08/22/24: Parkinson's Disease: Resume Sinemet Sepsis with hypotension: Levophed drip, taper down as tolerated Hypernatremia: Better, continue TPN and IV fluids Protein malnutrition: Protein supplement Left buttock and sacral decubitus ulcers: Get wound cultures, IV antibiotics: Zosyn DAYLIN: Better, continue IV fluids DVT: Lovenox Add thiamine IV Check B12 and Folic acid and ammonia 08/23/24: Add Midodrine 10 mg tid Advance diet to pureed Taper down the Levophed as tolerated Continue IV antibiotics We will stop TPN if he tolerates. Diet Once off the Levophed then we can downgrade from ICU 08/24/2024: Continue midodrine Tapered down the Levophed and stop if tolerated Downgrade to tele if he stays off the Levophed for 4 hours Continue diet as tolerated Discontinue TPN Continue physical therapy Continue IV fluids with LR Wound culture showed Enterococcus faecalis, on Zosyn Continue Sinemet 08/25/2024: Tapered the Levophed drip off if possible and downgrade the patient to tele Continue midodrine Advance diet Discontinue morphine and give [place] instead for moderate pain Physical therapy IV fluids with LR 08/26/24: Discussed with Dr. Kelvin German, he will re-evaluate pt. for possible I&D IV antibiotics: Zyvox Levophed Sinemet Repeat swallow eval Protein supplement Wound care Discussed with daughter at the bedside Plan discussed with: Patient, Daughter My Orders Orders - JELENA GAINES MD Procedure Category Date Status Time Nutritional PHA 08/26/24 In Process Supplements (Marvin 14:00 * Swallow Request ST 08/26/24 Transmitted 12:04 Linezolid 600mg/300ml PHA 08/26/24 In Process (Zyvox) 22:00 Wound Culture W/ Gs SHERMAN 08/26/24 In Process 16:28 Complete Blood Count LAB 08/27/24 Verified 04:00 Comprehensive LAB 08/27/24 Verified Metabolic Panel 04:00 Magnesium LAB 08/27/24 Verified 04:00 Date of Service: Aug 26, 2024 Billing Provider: JELENA GAINES MD Common Visit Codes: NOT BILLABLE JELENA GAINES MD Aug 26, 2024 17:49
[2024-08-26] MEDS: LINEZOLID 600MG/300ML 300 ML IV ONE (18:27)
[2024-08-26] MEDS: LINEZOLID 600MG/300ML 300 ML IV SCH (21:37)
--- NOTE | 2024-08-26 23:41 | DVHPN2 ---
Progress Note - Dictate Date Seen: Aug 26, 2024 Medical Necessity Reason Pt with a Central, PICC or Fol: Yes The following are medically ne: Powell Catheter Reason for powell catheter: Strict I&O Subjective Patient seen and examined at bedside. Breathing on room air. Overnight events reviewed. vital signs Vital Sign Date Time Temp Pulse Resp B/P (MAP) Pulse Ox O2 Delivery O2 Flow Rate FiO2 08/26/24 23:15 79 18 102/54 (70) 100 08/26/24 22:00 Room Air* 0 21 08/26/24 20:00 98.7 98.7 Total Intake and Output 08/25/24 08/25/24 08/26/24 15:00 23:00 07:00 Intake Total 423.441 ml 2322.504 ml 1294.691 ml Output Total 1150 ml 1050 ml Balance 423.441 ml 1172.504 ml 244.691 ml medications Current Medications Medications Dose Ordered Sig/Akiko Route Start Time Stop Time Status Last Admin Dose Admin Vancomycin HCl 200 ml @ 200 mls/hr Q12HR IV 08/10/24 22:00 UNV Pantoprazole Sodium 40 mg DAILY IV 08/11/24 10:00 08/26/24 09:36 40 MG Lactated Ringer's 1,000 ml @ 50 mls/hr Q20H IV 08/19/24 08:00 08/25/24 09:28 50 MLS/HR Enteral Nutritional Formula 240 ml TIDWM PO 08/20/24 18:00 08/26/24 18:01 240 ML Dextrose 50 ml UD PRN IV 08/21/24 09:30 Diagnostic Test (Pha) 1 strip Q6HR 08/21/24 12:00 Cancel Insulin Human Regular FOLLOW SLIDING SCALE Q6HR SC 08/21/24 12:00 Cancel Dextrose 50 ml UD IV 08/21/24 10:00 Cancel Norepinephrine Bitartrate 16 mg/ Sodium Chloride 250 ml @ 0.938 mls/ hr Q24H IV 08/22/24 14:00 08/23/24 14:30 3.75 MLS/HR Thiamine HCl 100 mg DAILY IV 08/23/24 10:00 08/26/24 09:36 100 MG Melatonin 3 mg HS PO 08/22/24 22:00 08/26/24 21:36 3 MG Midodrine 10 mg TID@0600,1200,1800 PO 08/23/24 12:00 08/26/24 18:27 10 MG Carbidopa/Levodopa 1 tab TID PO 08/25/24 09:45 08/26/24 21:36 1 TAB Diagnostic Test (Pha) 1 strip ACHS 08/25/24 11:30 08/26/24 21:36 1 STRIP Insulin Human Regular ACHS SC 08/25/24 11:30 Acetaminophen/ Hydrocodone Bitart 1 tab Q6HPRN PRN PO 08/25/24 10:00 Hold Morphine Sulfate 2 mg Q4HPRN PRN IV 08/25/24 12:45 08/26/24 19:34 2 MG Acetaminophen 650 mg Q6HPRN PRN PO 08/25/24 16:00 08/26/24 18:00 650 MG Enteral Nutritional Formula 28.8 gm TID PO 08/26/24 14:00 08/26/24 21:37 28.8 GM Linezolid 300 ml @ 150 mls/hr Q12HR IV 08/26/24 22:00 08/26/24 21:37 150 MLS/HR objective Gen.: Patient lying in bed in no apparent distress. Breathing on room air. Head: Normocephalic, atraumatic. Eyes: EOMI/PERRLA. Ears: Normal hearing. Normal anatomy. Neck/trachea: Trachea midline, supple. Nose: Normal external anatomy. Mouth: Moist mucous membranes. Chest: Decreased air entry bilaterally. No wheezing or rhonchi. Cardiovascular: Positive S1, positive S2. Regular rate and rhythm. Abdomen: Positive bowel sounds in all 4 quadrants. Soft, non-tender, non- distended. : Deferred. Rectal: Deferred. Skin: Warm, dry. Intact. Extremities: 2+ radial pulses bilaterally. No lower extremity edema. Neuro: Awake, alert, oriented x3. No gross motor or sensory deficits. Cranial nerves II through XII intact. Gait not assessed. laboratory and microbiology Laboratory Tests 08/26/24 03:59 Test 08/26/24 03:59 Range/Units Serum Glucose 83 74-106 mg/dL Assessment/Plan Impression: Acute hypoxic respiratory failure Leukocytosis Hypernatremia Parkinson's disease Acute metabolic encephalopathy Decubitus ulcers Sepsis Rhabdomyolysis Acute kidney injury Events: Remains on room air. No respiratory distress. Pressors for hemodynamic support. On Levophed 3 mcg/min Titrate to keep MAP above 65 mmHg/SBP above 90 mmHg. Surgery recommendations appreciated. On midodrine 10 mg TID Continue antibiotics -adjusted IV fluids with LR 25 ml/hr. Wound care Accu-Cheks for glycemic monitoring Off Lovenox Head of bed elevation Aspiration precautions Brain MRI done 08/19/24 showed no evidence of acute intracranial abnormality. Labs and imaging reviewed. Rest of plan as noted below. Plan: S/p extubation 08/15/24 Breathing on room air. Supplemental O2 PRN. CT head: No acute intracranial hemorrhage or stroke. Pressors for hemodynamic support. Titrate to keep MAP above 65 mmHg/SBP above 90 mmHg. Antibiotics. Monitor renal function due to Acute kidney injury. Monitor electrolytes. Supplement as necessary. Monitor sodium due to hypernatremia, Na 153 on 08/17/24 IV fluid hydration Do not over correct sodium. Nutritional support. Accu-Cheks, ISS. GI prophylaxis - Protonix DVT prophylaxis. Condition: Critical Prognosis: Poor given multiple comorbidities. Rest of plan per hospitalist and other consultants. A total of 35 minutes of critical care time was spent reviewing the patient record, examining the patient, making a diagnostic and therapeutic plan, discussing this plan with the medical personnel, following up on diagnostic studies and following the patient for clinical stability excluding any and all procedures. At least 50% of this time was spent in direct, [id number] contact. Thank you Dr. Newman for allowing me to participate in this patient's care. Further recommendations will depend on patient's clinical course. Please do not hesitate to contact me if you have any questions or concerns. This medical document was created using an electronic medical record system with [employer] dictation system. Although this document has been carefully reviewed, there may still be some phonetic and typographical errors. These areas are purely typographical due to imperfections of the software programs, and do not reflect any compromise in the patient's medical care. Dietary Evaluation Review Comments: 1. If on Vent Consider Nepro 30ml/hr x 24 hr,( 58g pro 1274 kcal). this will support pt's needs at 100% protein, 94 % kcal. 2. If EN not possible, and NPO > 7 days, consider TPN per pharmacy. 3. If off Vent, and pass speech eval, offer Renal Specific -50g protein 2g Na 3 K Low phos, 4. If off vent on hemo dialysis, pass speech eval, offer Renal Standard 2 gNa 3 K, Low Phos diet. Expected Outcomes/Goals: advance to diet able to eat independently. Plan discussed with: Other (SRAVANI Carver) Critical Care Time(min): 35 REY REAGAN MD Aug 26, 2024 23:41
[2024-08-27] VITALS (97 sets, daily range): BP systolic 82–132; BP diastolic 41–71; PULSE 78–98; RESP 8–28; TEMP 98.3–98.9; O2SAT 97–100
[2024-08-27 04:40] LABS: Basophils # (auto) 0 10 ^3/uL (0-0.2); Basophils % (auto) 0.5 % (0.0-2.0); Eosinophils # (auto) 0.1 10 ^3/uL (0-0.8); Eosinophils % (auto) 2.6 % (0.0-7.0); Hematocrit 25.2 % (41.0-53.0); Hemoglobin 8.6 g/dL (13.5-17.5); Lymphocytes # (auto) 1.3 10 ^3/uL (0.4-5.4); Lymphocytes % (auto) 23.2 % (10.0-50.0); Mean Corpuscular Hemoglobin 30.2 pg (28.0-32.0); Mean Corpuscular Hgb Conc. 34.1 g/dL (32.0-36.0); Mean Corpuscular Volume 88.5 fL (80.0-100.0); Monocytes # (auto) 0.4 10 ^3/uL (0-1.3); Monocytes % (auto) 7.1 % (0.0-12.0); Neutrophils # (auto) 3.7 10 ^3/uL (1.6-8.6); Neutrophils % (auto) 66.6 % (37.0-80.0); Nucleated Red Blood Cells % 0.3 %; Platelet Count (auto) 238 10^3/uL (140-450); Red Blood Cells 2.85 10^6/uL (4.5-5.90); Red Cell Distribution Width 12.9 % (11.8-14.3); White Blood Cell 5.6 10^3/uL (4.4-10.8)
[2024-08-27 04:56] LABS: Alanine Aminotransferase 24 U/L (7-40); Anion Gap 5 (5-15); BUN/Creatinine Ratio 23.7 (10.0-20.0); Blood Urea Nitrogen 18 mg/dL (9-23); Carbon Dioxide 27 mmol/L (20-31); Chloride 105 mmol/L (98-107); Potassium 3.7 mmol/L (3.5-5.1); Sodium 137 mmol/L (136-145)
[2024-08-27 04:57] LABS: Bilirubin, Total 0.6 mg/dL (0.2-1.0); Total Protein 5.8 g/dL (5.7-8.2)
[2024-08-27 05:10] LABS: Albumin 2.9 g/dL (3.2-4.8); Alkaline Phosphatase 199 U/L (46-116); Aspartate Aminotransferase 49 U/L (13-40); Calcium 8.3 mg/dL (8.7-10.4); Glucose 130 mg/dL (74-106)
--- NOTE | 2024-08-27 10:19 | DVHPN2 ---
Subjective Still on Levophed drip More alert Reviewed: Care Plan, H&P, Labs, Medications, Previous Orders, Radiology, Other (Consultants) Changes from previous H/P or p: Changes General: Per HPI Objective Vitals Vital Signs Date Time Temp Pulse Resp B/P (MAP) Pulse Ox O2 Delivery O2 Flow Rate FiO2 08/27/24 10:00 86 08/27/24 10:00 14 100 Room Air* 0 21 08/27/24 06:45 108/53 (71) 08/27/24 04:15 98.8 98.8 Intake/Output Intake and Output 08/27/24 07:00 Intake Total 5872.822 ml Output Total 3750 ml Balance 2122.822 ml Intake Oral 4210 ml IV Total 1662.822 ml Output Urine Total 3750 ml General Appearance: Alert, Oriented X3, Cooperative, No acute distress HEENT: Atraumatic Lungs: Clear to auscultation, Normal air movement Cardiovascular: Regular rate, Normal S1, Normal S2 Abdomen: Normal bowel sounds, Soft, No tenderness Extremities: Other (Some bilateral lower extremities edema) Skin: Wounds (Upper back) Medications Current Medications Medications Dose Ordered Sig/Akiko Route Start Time Stop Time Status Last Admin Dose Admin Vancomycin HCl 200 ml @ 200 mls/hr Q12HR IV 08/10/24 22:00 UNV Pantoprazole Sodium 40 mg DAILY IV 08/11/24 10:00 08/27/24 09:03 40 MG Lactated Ringer's 1,000 ml @ 50 mls/hr Q20H IV 08/19/24 08:00 08/27/24 05:33 50 MLS/HR Enteral Nutritional Formula 240 ml TIDWM PO 08/20/24 18:00 08/27/24 08:23 240 ML Dextrose 50 ml UD PRN IV 08/21/24 09:30 Diagnostic Test (Pha) 1 strip Q6HR 08/21/24 12:00 Cancel Insulin Human Regular FOLLOW SLIDING SCALE Q6HR SC 08/21/24 12:00 Cancel Dextrose 50 ml UD IV 08/21/24 10:00 Cancel Norepinephrine Bitartrate 16 mg/ Sodium Chloride 250 ml @ 0.938 mls/ hr Q24H IV 08/22/24 14:00 08/23/24 14:30 3.75 MLS/HR Thiamine HCl 100 mg DAILY IV 08/23/24 10:00 08/27/24 09:03 100 MG Melatonin 3 mg HS PO 08/22/24 22:00 08/26/24 21:36 3 MG Midodrine 10 mg TID@0600,1200,1800 PO 08/23/24 12:00 08/27/24 06:09 10 MG Carbidopa/Levodopa 1 tab TID PO 08/25/24 09:45 08/27/24 06:09 1 TAB Diagnostic Test (Pha) 1 strip ACHS 08/25/24 11:30 08/27/24 06:25 1 STRIP Insulin Human Regular ACHS SC 08/25/24 11:30 Acetaminophen/ Hydrocodone Bitart 1 tab Q6HPRN PRN PO 08/25/24 10:00 Hold Morphine Sulfate 2 mg Q4HPRN PRN IV 08/25/24 12:45 08/27/24 05:02 2 MG Acetaminophen 650 mg Q6HPRN PRN PO 08/25/24 16:00 08/26/24 18:00 650 MG Enteral Nutritional Formula 28.8 gm TID PO 08/26/24 14:00 08/27/24 06:09 28.8 GM Linezolid 300 ml @ 150 mls/hr Q12HR IV 08/26/24 22:00 08/27/24 09:03 150 MLS/HR Laboratory Results Laboratory Tests 08/27/24 04:00 Chemistry Test 08/27/24 04:00 Albumin 2.9 g/dL (3.2-4.8) L Calcium Level 8.3 mg/dL (8.7-10.4) L Magnesium Level 2.0 mg/dL (1.6-2.6) Total Protein 5.8 g/dL (5.7-8.2) LFT Test 08/27/24 04:00 Alanine Aminotransferase (ALT) 24 U/L (7-40) Alkaline Phosphatase 199 U/L (46-116) H Aspartate Amino Transferase (AST) 49 U/L (13-40) H Total Bilirubin 0.6 mg/dL (0.2-1.0) Urinalysis Test 08/11/24 13:02 Urine Color Yellow (Yellow) Urine Clarity Turbid (Clear) H Urine pH 5.5 (5.0-9.0) Urine Specific [place] 1.018 (1.001-1.035) Urine Protein 1+ (Negative) H Urine Ketones Negative (Negative) Urine Blood 3+ /uL (Negative) H Urine Nitrite Negative (Negative) Urine Bilirubin Negative (Negative) Urine Urobilinogen 4 mg/dL (Negative) H Urine Leukocyte Esterase 1+ /uL (Negative) Urine RBC 13 /hpf (0 - 3) Urine WBC 14 /hpf (0 - 3) Urine Squamous Epithelial Cells Few /hpf (<5) Urine Bacteria Few /hpf (None Seen) H Urine Hyaline Casts Few /lpf (0 - 2) Urine Granular Casts Few /lpf (0) Urine Mucus Few (None Seen) Urine Creatinine 67.44 mg/dL (30.0-125.0) Urine Protein/Creatinine Ratio 1.00 Urine Sodium 32 mmol/L (40-220) L Urine Glucose Normal mg/dL (Normal) Urine Total Protein 67.3 mg/dL (1-14) H Microbiology Microbiology Date/Time Source Procedure Growth Status 08/22/24 15:28 Back Lumbar Gram Stain - Final Complete 08/22/24 15:28 Wound Culture - Final Enterococcus faecium - VRE Complete 08/12/24 19:02 Bronchial Washings Gram Stain - Final Resulted 08/12/24 19:02 Respiratory Culture - Preliminary Klebsiella pneumoniae Presumptive Ema albicans Resulted 08/10/24 14:08 Blood Blood Culture - Final NO GROWTH AFTER 5 DAYS OF INCUBATION. Complete Assessment/Plan Assessment/Plan Acute hypoxic respiratory failure, Metabolic encephalopathy, Sepsis with septic shock Severe hypernatremia Severe dehydration DAYLIN due to vasomotor nephropathy Rhabdomyolysis Parkinson's disease Decubitus ulcer RLE DVT PLAN: 08/22/24: Parkinson's Disease: Resume Sinemet Sepsis with hypotension: Levophed drip, taper down as tolerated Hypernatremia: Better, continue TPN and IV fluids Protein malnutrition: Protein supplement Left buttock and sacral decubitus ulcers: Get wound cultures, IV antibiotics: Zosyn DAYLIN: Better, continue IV fluids DVT: Lovenox Add thiamine IV Check B12 and Folic acid and ammonia 08/23/24: Add Midodrine 10 mg tid Advance diet to pureed Taper down the Levophed as tolerated Continue IV antibiotics We will stop TPN if he tolerates. Diet Once off the Levophed then we can downgrade from ICU 08/24/2024: Continue midodrine Tapered down the Levophed and stop if tolerated Downgrade to tele if he stays off the Levophed for 4 hours Continue diet as tolerated Discontinue TPN Continue physical therapy Continue IV fluids with LR Wound culture showed Enterococcus faecalis, on Zosyn Continue Sinemet 08/25/2024: Tapered the Levophed drip off if possible and downgrade the patient to tele Continue midodrine Advance diet Discontinue morphine and give [place] instead for moderate pain Physical therapy IV fluids with LR 08/26/24: Discussed with Dr. Kelvin German, he will re-evaluate pt. for possible I&D IV antibiotics: Zyvox Levophed Sinemet Repeat swallow eval Protein supplement Wound care Discussed with daughter at the bedside 08/27/24: Sepsis: Levophed, Zyvox, LR IV Wound infection: Zyvox, I&D per Dr. German Parkinson's d.: Sinemet Dysphagia: Pureed diet Malnutrition: Protein supplements Discussed with family member at the bedside Plan discussed with: Patient, Son My Orders Orders - JELENA GAINES MD Procedure Category Date Status Time Nutritional PHA 08/26/24 In Process Supplements (Marvin 14:00 * Swallow Request ST 08/26/24 Transmitted 12:04 Linezolid 600mg/300ml PHA 08/26/24 In Process (Zyvox) 22:00 Wound Culture W/ Gs SHERMAN 08/26/24 In Process 16:28 Date of Service: Aug 27, 2024 Billing Provider: JELENA GAINES MD Common Visit Codes: NOT BILLABLE JELENA GAINES MD Aug 27, 2024 10:19
[2024-08-27 12:34] LABS: INR 1.16 (0.9-1.15); Partial Thromboplastin Time 28.3 SEC (24.5-34.5); Prothrombin Time 12.2 sec (9.3-11.8)
--- NOTE | 2024-08-27 21:56 | DVHPN2 ---
Progress Note - Dictate Date Seen: Aug 27, 2024 Medical Necessity Reason Pt with a Central, PICC or Fol: Yes The following are medically ne: Powell Catheter Reason for powell catheter: Strict I&O Subjective Patient seen and examined at bedside. Breathing on room air. Overnight events reviewed. vital signs Vital Sign Date Time Temp Pulse Resp B/P (MAP) Pulse Ox O2 Delivery O2 Flow Rate FiO2 08/27/24 21:45 94 11 120/57 (78) 100 08/27/24 20:00 98.5 98.5 08/27/24 20:00 Room Air* 0 21 Total Intake and Output 08/26/24 08/26/24 08/27/24 15:00 23:00 07:00 Intake Total 1657.504 ml 2746.566 ml 1468.752 ml Output Total 1750 ml 2000 ml Balance 1657.504 ml 996.566 ml -531.248 ml medications Current Medications Medications Dose Ordered Sig/Akiko Route Start Time Stop Time Status Last Admin Dose Admin Vancomycin HCl 200 ml @ 200 mls/hr Q12HR IV 08/10/24 22:00 UNV Pantoprazole Sodium 40 mg DAILY IV 08/11/24 10:00 08/27/24 09:03 40 MG Lactated Ringer's 1,000 ml @ 50 mls/hr Q20H IV 08/19/24 08:00 08/27/24 05:33 50 MLS/HR Enteral Nutritional Formula 240 ml TIDWM PO 08/20/24 18:00 08/27/24 17:03 240 ML Dextrose 50 ml UD PRN IV 08/21/24 09:30 Diagnostic Test (Pha) 1 strip Q6HR 08/21/24 12:00 Cancel Insulin Human Regular FOLLOW SLIDING SCALE Q6HR SC 08/21/24 12:00 Cancel Dextrose 50 ml UD IV 08/21/24 10:00 Cancel Norepinephrine Bitartrate 16 mg/ Sodium Chloride 250 ml @ 0.938 mls/ hr Q24H IV 08/22/24 14:00 08/27/24 11:16 1.875 MLS/HR Thiamine HCl 100 mg DAILY IV 08/23/24 10:00 08/27/24 09:03 100 MG Melatonin 3 mg HS PO 08/22/24 22:00 08/27/24 21:43 3 MG Midodrine 10 mg TID@0600,1200,1800 PO 08/23/24 12:00 08/27/24 17:03 10 MG Carbidopa/Levodopa 1 tab TID PO 08/25/24 09:45 08/27/24 21:43 1 TAB Diagnostic Test (Pha) 1 strip ACHS 08/25/24 11:30 08/27/24 21:43 1 STRIP Insulin Human Regular ACHS SC 08/25/24 11:30 08/27/24 11:30 2 UNITS Acetaminophen/ Hydrocodone Bitart 1 tab Q6HPRN PRN PO 08/25/24 10:00 Hold Morphine Sulfate 2 mg Q4HPRN PRN IV 08/25/24 12:45 08/27/24 05:02 2 MG Acetaminophen 650 mg Q6HPRN PRN PO 08/25/24 16:00 08/26/24 18:00 650 MG Enteral Nutritional Formula 28.8 gm TID PO 08/26/24 14:00 08/27/24 21:43 28.8 GM Linezolid 300 ml @ 150 mls/hr Q12HR IV 08/26/24 22:00 08/27/24 21:43 150 MLS/HR objective Gen.: Patient lying in bed in no apparent distress. Breathing on room air. Head: Normocephalic, atraumatic. Eyes: EOMI/PERRLA. Ears: Normal hearing. Normal anatomy. Neck/trachea: Trachea midline, supple. Nose: Normal external anatomy. Mouth: Moist mucous membranes. Chest: Decreased air entry bilaterally. No wheezing or rhonchi. Cardiovascular: Positive S1, positive S2. Regular rate and rhythm. Abdomen: Positive bowel sounds in all 4 quadrants. Soft, non-tender, non- distended. : Deferred. Rectal: Deferred. Skin: Warm, dry. Intact. Extremities: 2+ radial pulses bilaterally. No lower extremity edema. Neuro: Awake, alert, oriented x3. No gross motor or sensory deficits. Cranial nerves II through XII intact. Gait not assessed. laboratory and microbiology Laboratory Tests 08/27/24 04:00 Test 08/27/24 04:00 Range/Units Serum Glucose 130 H 74-106 mg/dL Assessment/Plan Impression: Acute hypoxic respiratory failure Leukocytosis Hypernatremia Parkinson's disease Acute metabolic encephalopathy Decubitus ulcers Sepsis Rhabdomyolysis Acute kidney injury Events: Remains on room air. No respiratory distress. Pressors for hemodynamic support. On Levophed Titrate to keep MAP above 65 mmHg/SBP above 90 mmHg. Surgery recommendations appreciated. On midodrine 10 mg TID Continue antibiotics IV fluids with LR 50 ml/hr. Wound care Monitor hemoglobin Accu-Cheks for glycemic monitoring Off Lovenox Plan for wound debridement on Thursday Brain MRI done 08/19/24 showed no evidence of acute intracranial abnormality. Labs and imaging reviewed. Rest of plan as noted below. Plan: S/p extubation 08/15/24 Breathing on room air. Supplemental O2 PRN. CT head: No acute intracranial hemorrhage or stroke. Pressors for hemodynamic support. Titrate to keep MAP above 65 mmHg/SBP above 90 mmHg. Antibiotics. Monitor hemoglobin Head of bed elevation Aspiration precautions Monitor renal function due to Acute kidney injury. Monitor electrolytes. Supplement as necessary. Monitor sodium due to hypernatremia IV fluid hydration Do not over correct sodium. Sodium normal at 137 (08/27/24) Nutritional support. Accu-Cheks, ISS. GI prophylaxis - Protonix DVT prophylaxis. Condition: Critical Prognosis: Poor given multiple comorbidities. Rest of plan per hospitalist and other consultants. A total of 35 minutes of critical care time was spent reviewing the patient record, examining the patient, making a diagnostic and therapeutic plan, discussing this plan with the medical personnel, following up on diagnostic studies and following the patient for clinical stability excluding any and all procedures. At least 50% of this time was spent in direct, [id number] contact. Thank you Dr. Newman for allowing me to participate in this patient's care. Further recommendations will depend on patient's clinical course. Please do not hesitate to contact me if you have any questions or concerns. This medical document was created using an electronic medical record system with [employer] dictation system. Although this document has been carefully reviewed, there may still be some phonetic and typographical errors. These areas are purely typographical due to imperfections of the software programs, and do not reflect any compromise in the patient's medical care. Dietary Evaluation Review Comments: 1. If on Vent Consider Nepro 30ml/hr x 24 hr,( 58g pro 1274 kcal). this will support pt's needs at 100% protein, 94 % kcal. 2. If EN not possible, and NPO > 7 days, consider TPN per pharmacy. 3. If off Vent, and pass speech eval, offer Renal Specific -50g protein 2g Na 3 K Low phos, 4. If off vent on hemo dialysis, pass speech eval, offer Renal Standard 2 gNa 3 K, Low Phos diet. Expected Outcomes/Goals: advance to diet able to eat independently. Plan discussed with: Patient, Other (SRAVANI Carver) Critical Care Time(min): 35 REY REAGAN MD Aug 27, 2024 21:56
[2024-08-28] VITALS (95 sets, daily range): BP systolic 85–129; BP diastolic 40–74; PULSE 73–100; RESP 9–23; TEMP 97.5–99.4; O2SAT 94–100
[2024-08-28 04:03] LABS: Basophils # (auto) 0 10 ^3/uL (0-0.2); Basophils % (auto) 0.5 % (0.0-2.0); Eosinophils # (auto) 0.1 10 ^3/uL (0-0.8); Eosinophils % (auto) 2.2 % (0.0-7.0); Hemoglobin 9.1 g/dL (13.5-17.5); Lymphocytes # (auto) 1.1 10 ^3/uL (0.4-5.4); Lymphocytes % (auto) 20.5 % (10.0-50.0); Mean Corpuscular Hemoglobin 30.5 pg (28.0-32.0); Mean Corpuscular Hgb Conc. 34.9 g/dL (32.0-36.0); Mean Corpuscular Volume 87.5 fL (80.0-100.0); Monocytes # (auto) 0.4 10 ^3/uL (0-1.3); Monocytes % (auto) 6.8 % (0.0-12.0); Neutrophils # (auto) 3.9 10 ^3/uL (1.6-8.6); Platelet Count (auto) 258 10^3/uL (140-450); Red Blood Cells 2.97 10^6/uL (4.5-5.90); Red Cell Distribution Width 13.1 % (11.8-14.3); White Blood Cell 5.6 10^3/uL (4.4-10.8)
[2024-08-28 04:20] LABS: Alanine Aminotransferase 25 U/L (7-40); Anion Gap 7 (5-15); BUN/Creatinine Ratio 20.8 (10.0-20.0); Blood Urea Nitrogen 16 mg/dL (9-23); Carbon Dioxide 26 mmol/L (20-31); Chloride 105 mmol/L (98-107); Potassium 3.7 mmol/L (3.5-5.1); Sodium 138 mmol/L (136-145)
[2024-08-28 04:21] LABS: Bilirubin, Total 0.6 mg/dL (0.2-1.0)
[2024-08-28 04:23] LABS: Albumin 2.9 g/dL (3.2-4.8); Alkaline Phosphatase 204 U/L (46-116); Aspartate Aminotransferase 52 U/L (13-40); Calcium 8.7 mg/dL (8.7-10.4); Glucose 124 mg/dL (74-106)
--- NOTE | 2024-08-28 11:58 | DVHPN2 ---
Subjective Still on Levophed drip More alert Not able to come off the Levophed drip Reviewed: Care Plan, H&P, Labs, Medications, Previous Orders, Radiology, Other (Consultants) Changes from previous H/P or p: Changes General: Per HPI Objective Vitals Vital Signs Date Time Temp Pulse Resp B/P (MAP) Pulse Ox O2 Delivery O2 Flow Rate FiO2 08/28/24 09:59 94 17 111/51 08/28/24 08:00 94 Room Air* 0 21 08/28/24 04:15 97.5 97.5 Intake/Output Intake and Output 08/28/24 07:00 Intake Total 4245.943 ml Output Total 4300 ml Balance -54.057 ml Intake Oral 2500 ml IV Total 1745.943 ml Output Urine Total 4300 ml General Appearance: Alert, Oriented X3, Cooperative, No acute distress HEENT: Atraumatic Lungs: Clear to auscultation, Normal air movement Cardiovascular: Regular rate, Normal S1, Normal S2 Abdomen: Normal bowel sounds, Soft, No tenderness Extremities: Other (Some bilateral lower extremities edema) Skin: Wounds (Upper back) Medications Current Medications Medications Dose Ordered Sig/Akiko Route Start Time Stop Time Status Last Admin Dose Admin Vancomycin HCl 200 ml @ 200 mls/hr Q12HR IV 08/10/24 22:00 UNV Pantoprazole Sodium 40 mg DAILY IV 08/11/24 10:00 08/28/24 09:55 40 MG Lactated Ringer's 1,000 ml @ 50 mls/hr Q20H IV 08/19/24 08:00 08/27/24 23:23 50 MLS/HR Enteral Nutritional Formula 240 ml TIDWM PO 08/20/24 18:00 08/27/24 17:03 240 ML Dextrose 50 ml UD PRN IV 08/21/24 09:30 Diagnostic Test (Pha) 1 strip Q6HR 08/21/24 12:00 Cancel Insulin Human Regular FOLLOW SLIDING SCALE Q6HR SC 08/21/24 12:00 Cancel Dextrose 50 ml UD IV 08/21/24 10:00 Cancel Norepinephrine Bitartrate 16 mg/ Sodium Chloride 250 ml @ 0.938 mls/ hr Q24H IV 08/22/24 14:00 08/27/24 11:16 1.875 MLS/HR Thiamine HCl 100 mg DAILY IV 08/23/24 10:00 08/28/24 09:55 100 MG Melatonin 3 mg HS PO 08/22/24 22:00 08/27/24 21:43 3 MG Midodrine 10 mg TID@0600,1200,1800 PO 08/23/24 12:00 08/28/24 05:46 10 MG Carbidopa/Levodopa 1 tab TID PO 08/25/24 09:45 08/28/24 05:46 1 TAB Diagnostic Test (Pha) 1 strip ACHS 08/25/24 11:30 08/28/24 06:44 1 STRIP Insulin Human Regular ACHS SC 08/25/24 11:30 08/27/24 11:30 2 UNITS Acetaminophen/ Hydrocodone Bitart 1 tab Q6HPRN PRN PO 08/25/24 10:00 Hold Morphine Sulfate 2 mg Q4HPRN PRN IV 08/25/24 12:45 08/28/24 09:59 2 MG Acetaminophen 650 mg Q6HPRN PRN PO 08/25/24 16:00 08/26/24 18:00 650 MG Enteral Nutritional Formula 28.8 gm TID PO 08/26/24 14:00 08/27/24 21:43 28.8 GM Linezolid 300 ml @ 150 mls/hr Q12HR IV 08/26/24 22:00 08/28/24 09:55 150 MLS/HR Laboratory Results Laboratory Tests 08/28/24 03:29 Chemistry Test 08/28/24 03:29 Albumin 2.9 g/dL (3.2-4.8) L Calcium Level 8.7 mg/dL (8.7-10.4) Total Protein 6.0 g/dL (5.7-8.2) LFT Test 08/28/24 03:29 Alanine Aminotransferase (ALT) 25 U/L (7-40) Alkaline Phosphatase 204 U/L (46-116) H Aspartate Amino Transferase (AST) 52 U/L (13-40) H Total Bilirubin 0.6 mg/dL (0.2-1.0) Urinalysis Test 08/11/24 13:02 Urine Color Yellow (Yellow) Urine Clarity Turbid (Clear) H Urine pH 5.5 (5.0-9.0) Urine Specific Philipp 1.018 (1.001-1.035) Urine Protein 1+ (Negative) H Urine Ketones Negative (Negative) Urine Blood 3+ /uL (Negative) H Urine Nitrite Negative (Negative) Urine Bilirubin Negative (Negative) Urine Urobilinogen 4 mg/dL (Negative) H Urine Leukocyte Esterase 1+ /uL (Negative) Urine RBC 13 /hpf (0 - 3) Urine WBC 14 /hpf (0 - 3) Urine Squamous Epithelial Cells Few /hpf (<5) Urine Bacteria Few /hpf (None Seen) H Urine Hyaline Casts Few /lpf (0 - 2) Urine Granular Casts Few /lpf (0) Urine Mucus Few (None Seen) Urine Creatinine 67.44 mg/dL (30.0-125.0) Urine Protein/Creatinine Ratio 1.00 Urine Sodium 32 mmol/L (40-220) L Urine Glucose Normal mg/dL (Normal) Urine Total Protein 67.3 mg/dL (1-14) H Microbiology Microbiology Date/Time Source Procedure Growth Status 08/26/24 15:45 Penis Gram Stain Pending Resulted 08/26/24 15:45 Penis Wound Culture - Preliminary Resulted 08/22/24 15:28 Back Lumbar Gram Stain - Final Complete 08/22/24 15:28 Wound Culture - Final Enterococcus faecium - VRE Complete 08/12/24 19:02 Bronchial Washings Gram Stain - Final Resulted 08/12/24 19:02 Respiratory Culture - Preliminary Klebsiella pneumoniae Presumptive Ema albicans Resulted 08/10/24 14:08 Blood Blood Culture - Final NO GROWTH AFTER 5 DAYS OF INCUBATION. Complete Assessment/Plan Assessment/Plan Acute hypoxic respiratory failure, Metabolic encephalopathy, Sepsis with septic shock Severe hypernatremia Severe dehydration DAYLIN due to vasomotor nephropathy Rhabdomyolysis Parkinson's disease Decubitus ulcer RLE DVT PLAN: 08/22/24: Parkinson's Disease: Resume Sinemet Sepsis with hypotension: Levophed drip, taper down as tolerated Hypernatremia: Better, continue TPN and IV fluids Protein malnutrition: Protein supplement Left buttock and sacral decubitus ulcers: Get wound cultures, IV antibiotics: Zosyn DAYLIN: Better, continue IV fluids DVT: Lovenox Add thiamine IV Check B12 and Folic acid and ammonia 08/23/24: Add Midodrine 10 mg tid Advance diet to pureed Taper down the Levophed as tolerated Continue IV antibiotics We will stop TPN if he tolerates. Diet Once off the Levophed then we can downgrade from ICU 08/24/2024: Continue midodrine Tapered down the Levophed and stop if tolerated Downgrade to tele if he stays off the Levophed for 4 hours Continue diet as tolerated Discontinue TPN Continue physical therapy Continue IV fluids with LR Wound culture showed Enterococcus faecalis, on Zosyn Continue Sinemet 08/25/2024: Tapered the Levophed drip off if possible and downgrade the patient to tele Continue midodrine Advance diet Discontinue morphine and give Blomkest instead for moderate pain Physical therapy IV fluids with LR 08/26/24: Discussed with Dr. Kelvin German, he will re-evaluate pt. for possible I&D IV antibiotics: Zyvox Levophed Sinemet Repeat swallow eval Protein supplement Wound care Discussed with daughter at the bedside 08/27/24: Sepsis: Levophed, Zyvox, LR IV Wound infection: Zyvox, I&D per Dr. German Parkinson's d.: Sinemet Dysphagia: Pureed diet Malnutrition: Protein supplements Discussed with family member at the bedside 08/28/24: Sepsis: Continue Zyvox, good CT scan of the abdomen and pelvis Wound infection with VRE: Zyvox IV Parkinson's disease Dysphagia Generalized weakness Protein malnutrition Discussed with Dr. Lc German, he will re-evaluate the patient tomorrow for possible incision and drainage of the wounds Discussed with the daughter at the bedside Plan discussed with: Patient, Daughter My Orders Orders - JELENA GAINES MD Procedure Category Date Status Time Ct Abd Pelvis W CT 08/28/24 Transmitted Con-Oral & Iv 11:53 Date of Service: Aug 28, 2024 Billing Provider: JELENA GAINES MD Common Visit Codes: NOT BILLABLE JELENA GAINES MD Aug 28, 2024 11:58
[2024-08-28] MEDS: IOHEXOL 300 MG/ML 100ML BOTTLE IJ ONE (17:13)
--- NOTE | 2024-08-28 17:50 | DVH ---
Procedure: CT CT ABD PELVIS W CON-ORAL IV 08/28/2024 05:18 PM Indication: sepsis Comparison Study: None available at time of dictation. Technique: Axial images were obtained and reformatted in coronal and sagittal planes. All CT scans at this medical facility are performed using dose modulation techniques as appropriate t o a performed exam including the following: Automated exposure control was utilized; adjustment of th e MA and/or KV according to patient size; and use of iterative reconstruction technique. CT Dose: CTDI volume is 20.73 mGy. Dose-length product is 1100.39 mGy*cm FINDINGS: Lower Chest: Bibasilar subsegmental atelectasis noted. Hepatobiliary: Unremarkable. Spleen: Unremarkable. Pancreas: Unremarkable. Adrenal Glands: Unremarkable. tract: The kidneys are normal in size bilaterally without hydronephrosis or nephrolithiasis. Circ umferential mural thickening of the urinary bladder. GI tract: The stomach is grossly normal in appearance. No evidence of small bowel obstruction. The la rge bowel is unremarkable. Mild fecal retention. The appendix is normal. Lymphatics: No mesenteric, retroperitoneal or periportal lymphadenopathy. No pelvic sidewall or ingui nal lymphadenopathy. Vasculature: The abdominal aorta is normal in in caliber. Pelvic Organs: Prostate is enlarged measuring 4.7 cm in transverse. Welch catheter is seen with the tip in the bladder. Bones/soft tissues: Left lateral upper thigh ulceration measuring 5.7 cm in AP and 2.4 cm in depth ex tending superficial to the underlying gluteus vania muscle. Moderate surrounding subcutaneous al a and overlying skin thickening noted. Moderate diffuse body wall edema is seen. Multilevel degenera tive disc disease and facet arthropathy of the lumbar spine noted. Other: None. IMPRESSION: 1. Large left lateral thigh ulceration extending to the underlying gluteus vania capsule without de finite involvement of the muscle. No drainable fluid collection. No CT signs of osteomyelitis. No co rtical erosion or lytic osseous lesion noted in the adjacent scratched left greater trochanter. 2. Circumferential mural thickening of the urinary bladder that could be at least in part due to lack of distention. A Welch catheter is seen in the bladder. Underlying cystitis or infiltrative marrow lesion can not be ruled out. Correlate with urinalysis and follow-up by ultrasound to ensure regressi on.
--- NOTE | 2024-08-28 21:48 | DVHPN2 ---
Progress Note - Dictate Date Seen: Aug 28, 2024 Medical Necessity Reason Pt with a Central, PICC or Fol: Yes The following are medically ne: Powell Catheter Reason for powell catheter: Strict I&O Subjective Patient seen and examined at bedside. Breathing on room air. Overnight events reviewed. vital signs Vital Sign Date Time Temp Pulse Resp B/P (MAP) Pulse Ox O2 Delivery O2 Flow Rate FiO2 08/28/24 19:15 87 22 120/63 (82) 08/28/24 18:45 100 08/28/24 18:00 Room Air* 0 21 08/28/24 04:15 97.5 97.5 Total Intake and Output 08/27/24 08/27/24 08/28/24 15:00 23:00 07:00 Intake Total 1315.939 ml 1762.189 ml 1219.690 ml Output Total 2250 ml 2050 ml Balance 1315.939 ml -487.811 ml -830.310 ml medications Current Medications Medications Dose Ordered Sig/Akiko Route Start Time Stop Time Status Last Admin Dose Admin Vancomycin HCl 200 ml @ 200 mls/hr Q12HR IV 08/10/24 22:00 UNV Pantoprazole Sodium 40 mg DAILY IV 08/11/24 10:00 08/28/24 09:55 40 MG Lactated Ringer's 1,000 ml @ 50 mls/hr Q20H IV 08/19/24 08:00 08/28/24 18:04 50 MLS/HR Enteral Nutritional Formula 240 ml TIDWM PO 08/20/24 18:00 08/28/24 18:04 240 ML Dextrose 50 ml UD PRN IV 08/21/24 09:30 Diagnostic Test (Pha) 1 strip Q6HR 08/21/24 12:00 Cancel Insulin Human Regular FOLLOW SLIDING SCALE Q6HR SC 08/21/24 12:00 Cancel Dextrose 50 ml UD IV 08/21/24 10:00 Cancel Norepinephrine Bitartrate 16 mg/ Sodium Chloride 250 ml @ 0.938 mls/ hr Q24H IV 08/22/24 14:00 08/27/24 11:16 1.875 MLS/HR Thiamine HCl 100 mg DAILY IV 08/23/24 10:00 08/28/24 09:55 100 MG Melatonin 3 mg HS PO 08/22/24 22:00 08/27/24 21:43 3 MG Midodrine 10 mg TID@0600,1200,1800 PO 08/23/24 12:00 08/28/24 18:03 10 MG Carbidopa/Levodopa 1 tab TID PO 08/25/24 09:45 08/28/24 14:17 1 TAB Diagnostic Test (Pha) 1 strip ACHS 08/25/24 11:30 08/28/24 18:05 1 STRIP Insulin Human Regular ACHS SC 08/25/24 11:30 08/27/24 11:30 2 UNITS Acetaminophen/ Hydrocodone Bitart 1 tab Q6HPRN PRN PO 08/25/24 10:00 Hold Morphine Sulfate 2 mg Q4HPRN PRN IV 08/25/24 12:45 08/28/24 09:59 2 MG Acetaminophen 650 mg Q6HPRN PRN PO 08/25/24 16:00 08/26/24 18:00 650 MG Enteral Nutritional Formula 28.8 gm TID PO 08/26/24 14:00 08/28/24 14:17 28.8 GM Linezolid 300 ml @ 150 mls/hr Q12HR IV 08/26/24 22:00 08/28/24 09:55 150 MLS/HR objective Gen.: Patient lying in bed in no apparent distress. Breathing on room air. Head: Normocephalic, atraumatic. Eyes: EOMI/PERRLA. Ears: Normal hearing. Normal anatomy. Neck/trachea: Trachea midline, supple. Nose: Normal external anatomy. Mouth: Moist mucous membranes. Chest: Decreased air entry bilaterally. No wheezing or rhonchi. Cardiovascular: Positive S1, positive S2. Regular rate and rhythm. Abdomen: Positive bowel sounds in all 4 quadrants. Soft, non-tender, non- distended. : Deferred. Rectal: Deferred. Skin: Warm, dry. Intact. Extremities: 2+ radial pulses bilaterally. No lower extremity edema. Neuro: Awake, alert, oriented x3. No gross motor or sensory deficits. Cranial nerves II through XII intact. Gait not assessed. laboratory and microbiology Laboratory Tests 08/28/24 03:29 Test 08/28/24 03:29 Range/Units Serum Glucose 124 H 74-106 mg/dL Assessment/Plan Impression: Acute hypoxic respiratory failure Leukocytosis Hypernatremia Parkinson's disease Acute metabolic encephalopathy Decubitus ulcers Sepsis Rhabdomyolysis Acute kidney injury Events: Remains on room air. No respiratory distress. Pressors for hemodynamic support. On Levophed 2 mcg/min Titrate to keep MAP above 65 mmHg/SBP above 90 mmHg. Surgery recommendations appreciated. Surgery plans for I and D. Obtain CT abdomen and pelvis On midodrine 10 mg TID Continue antibiotics IV fluids with LR 50 ml/hr. Wound care Monitor hemoglobin Accu-Cheks for glycemic monitoring Off Lovenox Brain MRI done 08/19/24 showed no evidence of acute intracranial abnormality. Labs and imaging reviewed. Rest of plan as noted below. Plan: S/p extubation 08/15/24 Breathing on room air. Supplemental O2 PRN. CT head: No acute intracranial hemorrhage or stroke. Pressors for hemodynamic support. Titrate to keep MAP above 65 mmHg/SBP above 90 mmHg. Antibiotics. Monitor hemoglobin Head of bed elevation Aspiration precautions Monitor renal function due to Acute kidney injury. Monitor electrolytes. Supplement as necessary. Monitor sodium due to hypernatremia IV fluid hydration Do not over correct sodium. Sodium normal at 138 (08/28/24) Nutritional support. Accu-Cheks, ISS. GI prophylaxis - Protonix DVT prophylaxis. Condition: Critical Prognosis: Poor given multiple comorbidities. Rest of plan per hospitalist and other consultants. A total of 35 minutes of critical care time was spent reviewing the patient record, examining the patient, making a diagnostic and therapeutic plan, discussing this plan with the medical personnel, following up on diagnostic studies and following the patient for clinical stability excluding any and all procedures. At least 50% of this time was spent in direct, [id number] contact. Thank you Dr. Newman for allowing me to participate in this patient's care. Further recommendations will depend on patient's clinical course. Please do not hesitate to contact me if you have any questions or concerns. This medical document was created using an electronic medical record system with [employer] system. Although this document has been carefully reviewed, there may still be some phonetic and typographical errors. These areas are purely typographical due to imperfections of the software programs, and do not reflect any compromise in the patient's medical care. Dietary Evaluation Review Comments: 1. If on Vent Consider Nepro 30ml/hr x 24 hr,( 58g pro 1274 kcal). this will support pt's needs at 100% protein, 94 % kcal. 2. If EN not possible, and NPO > 7 days, consider TPN per pharmacy. 3. If off Vent, and pass speech eval, offer Renal Specific -50g protein 2g Na 3 K Low phos, 4. If off vent on hemo dialysis, pass speech eval, offer Renal Standard 2 gNa 3 K, Low Phos diet. Expected Outcomes/Goals: advance to diet able to eat independently. Plan discussed with: Other (SRAVANI Godinez) Critical Care Time(min): 35 REY REAGAN MD Aug 28, 2024 21:48
--- NOTE | 2024-08-28 22:10 | DVHPN2 ---
Progress Note - Dictate Date Seen: Aug 28, 2024 Medical Necessity Reason Pt with a Central, PICC or Fol: Yes The following are medically ne: Powell Catheter Reason for powell catheter: Strict I&O Subjective Mr. Howard is a 78 years old right-handed gentleman with a history of Parkinson's disease, the patient was admitted on 08/10 24 with a chief company of altered mental status I have seen in the ICU and examined the patient, I have discussed with his nurse, he is doing fine, oriented to person, place only, he knows year and the month socially appropriate The tremors, voice, facial expression are better He reports doing better Levo 2 mcg/minute Respiratory culture, 08/12/2024: Klebsiella pneumoniae Blood culture, 08/10/24: Negative UDS, 08/10/2024: Negative Urinalysis, 08/10/2024: WBC 10, urine leukocyte: Trace WBC/HB/PLT/MCV, 08/20/24: 6.5/10.5/205/88.8 PT/INR/PTT, 08/14/2024: 13.9/1.34/30.9 Na, 08/10/2024: 170, 168, 08/11/2024: 165, 08/12/2024: 164, 08/13/2024: 161, 08/14/2024: 156, 08/19/2024: 149, 08/20/24: 149, 08/23/2023: 142 BUN/CR, 08/18/2024: 45/1.01, 08/20/2024: 42/1.07 CPK, 08/10/2024: 2513, 08/11/2024: 2525, 08/12/2024: 2844, 08/13/2024: 4268, 08/21/2024: 510 TBI/AST/ALT/AP, 08/20/2024: 1.4/148/210/179, 08/23/2024: 08/23/2024: 0.9/61/104/180 Ammonia, 08/23/2024: < 10 Hepatitis panel, 08/11/2024: Negative TSH, 08/11/2024: 4.48 Venous Doppler, lower extremities, 08/13/2024: No left DVT. Positive DVT involving the right lower extremity common femoral vein, femoral vein, popliteal vein and calf Chest x-ray, 08/10/2024: No acute cardiopulmonary disease. Elevation of the left hemidiaphragm. Enteric tube and endotracheal tube are in satisfactory position Chest x-ray, 08/21/2024: Increased congestion CT head, 08/10/2024: 1. No acute intracranial hemorrhage, midline shift or mass effect. 2. Generalized brain atrophy. 3. Small vessel ischemic/degenerative changes. 4. If symptoms persists, further evaluation with MRI is recommended MRI head, 08/19/2024: 1. No evidence of acute intracranial abnormality. 2. Motion limited study vital signs Vital Sign Date Time Temp Pulse Resp B/P (MAP) Pulse Ox O2 Delivery O2 Flow Rate FiO2 08/28/24 19:15 87 22 120/63 (82) 08/28/24 18:45 100 08/28/24 18:00 Room Air* 0 21 08/28/24 04:15 97.5 97.5 Total Intake and Output 08/27/24 08/27/24 08/28/24 15:00 23:00 07:00 Intake Total 1315.939 ml 1762.189 ml 1219.690 ml Output Total 2250 ml 2050 ml Balance 1315.939 ml -487.811 ml -830.310 ml medications Current Medications Medications Dose Ordered Sig/Akiko Route Start Time Stop Time Status Last Admin Dose Admin Vancomycin HCl 200 ml @ 200 mls/hr Q12HR IV 08/10/24 22:00 UNV Pantoprazole Sodium 40 mg DAILY IV 08/11/24 10:00 08/28/24 09:55 40 MG Lactated Ringer's 1,000 ml @ 50 mls/hr Q20H IV 08/19/24 08:00 08/28/24 18:04 50 MLS/HR Enteral Nutritional Formula 240 ml TIDWM PO 08/20/24 18:00 08/28/24 18:04 240 ML Dextrose 50 ml UD PRN IV 08/21/24 09:30 Diagnostic Test (Pha) 1 strip Q6HR 08/21/24 12:00 Cancel Insulin Human Regular FOLLOW SLIDING SCALE Q6HR SC 08/21/24 12:00 Cancel Dextrose 50 ml UD IV 08/21/24 10:00 Cancel Norepinephrine Bitartrate 16 mg/ Sodium Chloride 250 ml @ 0.938 mls/ hr Q24H IV 08/22/24 14:00 08/27/24 11:16 1.875 MLS/HR Thiamine HCl 100 mg DAILY IV 08/23/24 10:00 08/28/24 09:55 100 MG Melatonin 3 mg HS PO 08/22/24 22:00 08/27/24 21:43 3 MG Midodrine 10 mg TID@0600,1200,1800 PO 08/23/24 12:00 08/28/24 18:03 10 MG Carbidopa/Levodopa 1 tab TID PO 08/25/24 09:45 08/28/24 14:17 1 TAB Diagnostic Test (Pha) 1 strip ACHS 08/25/24 11:30 08/28/24 18:05 1 STRIP Insulin Human Regular ACHS SC 08/25/24 11:30 08/27/24 11:30 2 UNITS Acetaminophen/ Hydrocodone Bitart 1 tab Q6HPRN PRN PO 08/25/24 10:00 Hold Morphine Sulfate 2 mg Q4HPRN PRN IV 08/25/24 12:45 08/28/24 09:59 2 MG Acetaminophen 650 mg Q6HPRN PRN PO 08/25/24 16:00 08/26/24 18:00 650 MG Enteral Nutritional Formula 28.8 gm TID PO 08/26/24 14:00 08/28/24 14:17 28.8 GM Linezolid 300 ml @ 150 mls/hr Q12HR IV 08/26/24 22:00 08/28/24 09:55 150 MLS/HR objective General: the patient is well developed and nourished. No acute distress. MUSCULOSKELETAL EXAM: Pressure sores MENTAL STATUS: Awake, oriented to person place SPEECH, LANGUAGE, HIGHER CORTICAL FUNCTION: no aphasia or dysathria. CRANIAL NERVES: Pupils are equal, round and reactive. EOMs full and conjugate. No nystagmus. Facial sensation intact in all three divisions bilaterally. Mandibular strength intact. Facial muscles symmetrical and strength intact. SENSATION: Sensation to touch and pinprick is Ok MOTOR: Normal tone in the upper and lower extremity. Normal muscle bulk. No fasciculations. He moves the arms REFLEXES: Deep tendon reflexes normal and symmetrical. No pathological reflexes. CEREBELLAR/COORDINATION: Deferred GAIT/STATION: deferred laboratory and microbiology Laboratory Tests 08/28/24 03:29 Test 08/28/24 03:29 Range/Units Serum Glucose 124 H 74-106 mg/dL Problem List Altered mental status/metabolic encephalopathy secondary to Sepsis Septic shock Respiratory failure Urinary tract infection Dehydration Acute kidney failure Hypernatremia Rhabdomyolysis Hand tremors, gait disturbance, low voice Parkinson's disease Rule out essential tremor Pressure sores Assessment/Plan Monitoring Supportive treatment ICU care Respiratory support p.r.n. Stabilize vitals Oxygen IV antiepileptics Hydration Sinemet 25/100, t.i.d. Midodrine Current pain management Okay to use Tylenol for pain control Wound care DVT prophylaxis GI prophylaxis Pulmonary on case Nephrology on case Surgery on case More recommendation per clinical course This medical document was created using an electronic medical record system with [employer] dictation system. Although this document has been carefully reviewed, there may still be some phonetic and typographical errors. These areas are purely typographical due to imperfections of the software programs, and do not reflect any compromise in the patient's medical care Prognosis Critical, poor Dietary Evaluation Review Comments: 1. If on Vent Consider Nepro 30ml/hr x 24 hr,( 58g pro 1274 kcal). this will support pt's needs at 100% protein, 94 % kcal. 2. If EN not possible, and NPO > 7 days, consider TPN per pharmacy. 3. If off Vent, and pass speech eval, offer Renal Specific -50g protein 2g Na 3 K Low phos, 4. If off vent on hemo dialysis, pass speech eval, offer Renal Standard 2 gNa 3 K, Low Phos diet. Expected Outcomes/Goals: advance to diet able to eat independently. Plan discussed with: Other EVELINE HUNTER MD Aug 28, 2024 22:10
[2024-08-29] VITALS (88 sets, daily range): BP systolic 81–139; BP diastolic 22–66; PULSE 68–98; RESP 8–42; TEMP 97.7–99.6; O2SAT 97–100
[2024-08-29 04:39] LABS: Basophils # (auto) 0 10 ^3/uL (0-0.2); Basophils % (auto) 0.4 % (0.0-2.0); Eosinophils # (auto) 0.1 10 ^3/uL (0-0.8); Eosinophils % (auto) 2.2 % (0.0-7.0); Hematocrit 26.8 % (41.0-53.0); Hemoglobin 9.1 g/dL (13.5-17.5); Lymphocytes # (auto) 1.3 10 ^3/uL (0.4-5.4); Lymphocytes % (auto) 23.8 % (10.0-50.0); Mean Corpuscular Hemoglobin 30.3 pg (28.0-32.0); Mean Corpuscular Hgb Conc. 33.9 g/dL (32.0-36.0); Mean Corpuscular Volume 89.4 fL (80.0-100.0); Monocytes # (auto) 0.4 10 ^3/uL (0-1.3); Monocytes % (auto) 7.6 % (0.0-12.0); Neutrophils # (auto) 3.6 10 ^3/uL (1.6-8.6); Platelet Count (auto) 247 10^3/uL (140-450); Red Cell Distribution Width 13.2 % (11.8-14.3); White Blood Cell 5.5 10^3/uL (4.4-10.8)
[2024-08-29 04:44] LABS: Alanine Aminotransferase 21 U/L (7-40); Anion Gap 6 (5-15); BUN/Creatinine Ratio 21.3 (10.0-20.0); Blood Urea Nitrogen 16 mg/dL (9-23); Calcium 8.9 mg/dL (8.7-10.4); Carbon Dioxide 26 mmol/L (20-31); Chloride 104 mmol/L (98-107); Potassium 3.8 mmol/L (3.5-5.1)
[2024-08-29 04:45] LABS: Bilirubin, Total 0.6 mg/dL (0.2-1.0); Total Protein 6.2 g/dL (5.7-8.2)
[2024-08-29 04:54] LABS: Alkaline Phosphatase 191 U/L (46-116); Aspartate Aminotransferase 45 U/L (13-40); Glucose 107 mg/dL (74-106); Sodium 136 mmol/L (136-145)
--- NOTE | 2024-08-29 08:49 | DVHPN2 ---
Subjective Still on Levophed drip More alert Not able to come off the Levophed drip CT did not show any fluid collections Dr. Kelvin German to decide on doing I&D Reviewed: Care Plan, H&P, Labs, Medications, Previous Orders, Radiology, Other (Consultants) Changes from previous H/P or p: Changes General: Per HPI Objective Vitals Vital Signs Date Time Temp Pulse Resp B/P (MAP) Pulse Ox O2 Delivery O2 Flow Rate FiO2 08/29/24 06:45 90 16 93/42 (59) 100 08/29/24 06:00 Room Air* 0 21 08/29/24 04:00 98.2 98.2 Intake/Output Intake and Output 08/29/24 07:00 Intake Total 3368.131 ml Output Total 3910 ml Balance -541.869 ml Intake Oral 1710 ml IV Total 1658.131 ml Output Urine Total 3910 ml General Appearance: Alert, Oriented X3, Cooperative, No acute distress HEENT: Atraumatic Lungs: Clear to auscultation, Normal air movement Cardiovascular: Regular rate, Normal S1, Normal S2 Abdomen: Normal bowel sounds, Soft, No tenderness Extremities: Other (Some bilateral lower extremities edema) Skin: Wounds (Upper back) Medications Current Medications Medications Dose Ordered Sig/Akiko Route Start Time Stop Time Status Last Admin Dose Admin Vancomycin HCl 200 ml @ 200 mls/hr Q12HR IV 08/10/24 22:00 UNV Pantoprazole Sodium 40 mg DAILY IV 08/11/24 10:00 08/28/24 09:55 40 MG Lactated Ringer's 1,000 ml @ 50 mls/hr Q20H IV 08/19/24 08:00 08/28/24 18:04 50 MLS/HR Enteral Nutritional Formula 240 ml TIDWM PO 08/20/24 18:00 08/28/24 18:04 240 ML Dextrose 50 ml UD PRN IV 08/21/24 09:30 Diagnostic Test (Pha) 1 strip Q6HR 08/21/24 12:00 Cancel Insulin Human Regular FOLLOW SLIDING SCALE Q6HR SC 08/21/24 12:00 Cancel Dextrose 50 ml UD IV 08/21/24 10:00 Cancel Norepinephrine Bitartrate 16 mg/ Sodium Chloride 250 ml @ 0.938 mls/ hr Q24H IV 08/22/24 14:00 08/27/24 11:16 1.875 MLS/HR Thiamine HCl 100 mg DAILY IV 08/23/24 10:00 08/28/24 09:55 100 MG Melatonin 3 mg HS PO 08/22/24 22:00 08/28/24 22:56 3 MG Midodrine 10 mg TID@0600,1200,1800 PO 08/23/24 12:00 08/29/24 06:36 10 MG Carbidopa/Levodopa 1 tab TID PO 08/25/24 09:45 08/29/24 06:36 1 TAB Diagnostic Test (Pha) 1 strip ACHS 08/25/24 11:30 08/29/24 07:00 1 STRIP Insulin Human Regular ACHS SC 08/25/24 11:30 08/27/24 11:30 2 UNITS Acetaminophen/ Hydrocodone Bitart 1 tab Q6HPRN PRN PO 08/25/24 10:00 Hold Morphine Sulfate 2 mg Q4HPRN PRN IV 08/25/24 12:45 08/29/24 05:12 2 MG Acetaminophen 650 mg Q6HPRN PRN PO 08/25/24 16:00 08/26/24 18:00 650 MG Enteral Nutritional Formula 28.8 gm TID PO 08/26/24 14:00 08/28/24 14:17 28.8 GM Linezolid 300 ml @ 150 mls/hr Q12HR IV 08/26/24 22:00 08/28/24 21:59 150 MLS/HR Laboratory Results Laboratory Tests 08/29/24 03:58 Chemistry Test 08/29/24 03:58 Albumin 3.0 g/dL (3.2-4.8) L Calcium Level 8.9 mg/dL (8.7-10.4) Total Protein 6.2 g/dL (5.7-8.2) LFT Test 08/29/24 03:58 Alanine Aminotransferase (ALT) 21 U/L (7-40) Alkaline Phosphatase 191 U/L (46-116) H Aspartate Amino Transferase (AST) 45 U/L (13-40) H Total Bilirubin 0.6 mg/dL (0.2-1.0) Urinalysis Test 08/11/24 13:02 Urine Color Yellow (Yellow) Urine Clarity Turbid (Clear) H Urine pH 5.5 (5.0-9.0) Urine Specific [place] 1.018 (1.001-1.035) Urine Protein 1+ (Negative) H Urine Ketones Negative (Negative) Urine Blood 3+ /uL (Negative) H Urine Nitrite Negative (Negative) Urine Bilirubin Negative (Negative) Urine Urobilinogen 4 mg/dL (Negative) H Urine Leukocyte Esterase 1+ /uL (Negative) Urine RBC 13 /hpf (0 - 3) Urine WBC 14 /hpf (0 - 3) Urine Squamous Epithelial Cells Few /hpf (<5) Urine Bacteria Few /hpf (None Seen) H Urine Hyaline Casts Few /lpf (0 - 2) Urine Granular Casts Few /lpf (0) Urine Mucus Few (None Seen) Urine Creatinine 67.44 mg/dL (30.0-125.0) Urine Protein/Creatinine Ratio 1.00 Urine Sodium 32 mmol/L (40-220) L Urine Glucose Normal mg/dL (Normal) Urine Total Protein 67.3 mg/dL (1-14) H Microbiology Microbiology Date/Time Source Procedure Growth Status 08/26/24 15:45 Penis Gram Stain Pending Resulted 08/26/24 15:45 Penis Wound Culture - Preliminary Resulted 08/22/24 15:28 Back Lumbar Gram Stain - Final Complete 08/22/24 15:28 Wound Culture - Final Enterococcus faecium - VRE Complete 08/12/24 19:02 Bronchial Washings Gram Stain - Final Resulted 08/12/24 19:02 Respiratory Culture - Preliminary Klebsiella pneumoniae Presumptive Ema albicans Resulted 08/10/24 14:08 Blood Blood Culture - Final NO GROWTH AFTER 5 DAYS OF INCUBATION. Complete Assessment/Plan Assessment/Plan Acute hypoxic respiratory failure, Metabolic encephalopathy, Sepsis with septic shock Severe hypernatremia Severe dehydration DAYLIN due to vasomotor nephropathy Rhabdomyolysis Parkinson's disease Decubitus ulcer RLE DVT PLAN: 08/22/24: Parkinson's Disease: Resume Sinemet Sepsis with hypotension: Levophed drip, taper down as tolerated Hypernatremia: Better, continue TPN and IV fluids Protein malnutrition: Protein supplement Left buttock and sacral decubitus ulcers: Get wound cultures, IV antibiotics: Zosyn DAYLIN: Better, continue IV fluids DVT: Lovenox Add thiamine IV Check B12 and Folic acid and ammonia 08/23/24: Add Midodrine 10 mg tid Advance diet to pureed Taper down the Levophed as tolerated Continue IV antibiotics We will stop TPN if he tolerates. Diet Once off the Levophed then we can downgrade from ICU 08/24/2024: Continue midodrine Tapered down the Levophed and stop if tolerated Downgrade to tele if he stays off the Levophed for 4 hours Continue diet as tolerated Discontinue TPN Continue physical therapy Continue IV fluids with LR Wound culture showed Enterococcus faecalis, on Zosyn Continue Sinemet 08/25/2024: Tapered the Levophed drip off if possible and downgrade the patient to tele Continue midodrine Advance diet Discontinue morphine and give [place] instead for moderate pain Physical therapy IV fluids with LR 08/26/24: Discussed with Dr. Kelvin German, he will re-evaluate pt. for possible I&D IV antibiotics: Zyvox Levophed Sinemet Repeat swallow eval Protein supplement Wound care Discussed with daughter at the bedside 08/27/24: Sepsis: Levophed, Zyvox, LR IV Wound infection: Zyvox, I&D per Dr. German Parkinson's d.: Sinemet Dysphagia: Pureed diet Malnutrition: Protein supplements Discussed with family member at the bedside 08/28/24: Sepsis: Continue Zyvox, good CT scan of the abdomen and pelvis Wound infection with VRE: Zyvox IV Parkinson's disease Dysphagia Generalized weakness Protein malnutrition Discussed with Dr. Lc German, he will re-evaluate the patient tomorrow for possible incision and drainage of the wounds Discussed with the daughter at the bedside 08/29/24: Possible I&D by Dr. Maxi Miller Continue Midodrine Taper down Levophed IV Zyvox LR Sinemet Plan discussed with: Patient, Other My Orders Orders - JELENA GAINES MD Procedure Category Date Status Time Ct Abd Pelvis W CT 08/28/24 Resulted Con-Oral & Iv 11:53 Date of Service: Aug 29, 2024 Billing Provider: JELENA GAINES MD Common Visit Codes: NOT BILLABLE JELENA GAINES MD Aug 29, 2024 08:49
[2024-08-29] MEDS: FLUDROCORTISONE ACETATE 0.1 MG TAB PO SCH (10:12)
--- NOTE | 2024-08-29 10:14 | DVHPN2 ---
Progress Note - Dictate Date Seen: Aug 29, 2024 Medical Necessity Reason Pt with a Central, PICC or Fol: Yes The following are medically ne: Powell Catheter Reason for powell catheter: Strict I&O Subjective Mr. Howard is a 78 years old right-handed gentleman with a history of Parkinson's disease, the patient was admitted on 08/10 24 with a chief company of altered mental status I have seen in the ICU and examined the patient, I have discussed with his nurse, he is doing fine, oriented to person, place only, he knows year and the month socially appropriate Levo 4 mcg/minute Respiratory culture, 08/12/2024: Klebsiella pneumoniae Blood culture, 08/10/24: Negative UDS, 08/10/2024: Negative Urinalysis, 08/10/2024: WBC 10, urine leukocyte: Trace WBC/HB/PLT/MCV, 08/20/24: 6.5/10.5/205/88.8 PT/INR/PTT, 08/14/2024: 13.9/1.34/30.9 Na, 08/10/2024: 170, 168, 08/11/2024: 165, 08/12/2024: 164, 08/13/2024: 161, 08/14/2024: 156, 08/19/2024: 149, 08/20/24: 149, 08/23/2023: 142 BUN/CR, 08/18/2024: 45/1.01, 08/20/2024: 42/1.07 CPK, 08/10/2024: 2513, 08/11/2024: 2525, 08/12/2024: 2844, 08/13/2024: 4268, 08/21/2024: 510 TBI/AST/ALT/AP, 08/20/2024: 1.4/148/210/179, 08/23/2024: 08/23/2024: 0.9/61/104/180 Ammonia, 08/23/2024: < 10 Hepatitis panel, 08/11/2024: Negative TSH, 08/11/2024: 4.48 Venous Doppler, lower extremities, 08/13/2024: No left DVT. Positive DVT involving the right lower extremity common femoral vein, femoral vein, popliteal vein and calf Chest x-ray, 08/10/2024: No acute cardiopulmonary disease. Elevation of the left hemidiaphragm. Enteric tube and endotracheal tube are in satisfactory position Chest x-ray, 08/21/2024: Increased congestion CT head, 08/10/2024: 1. No acute intracranial hemorrhage, midline shift or mass effect. 2. Generalized brain atrophy. 3. Small vessel ischemic/degenerative changes. 4. If symptoms persists, further evaluation with MRI is recommended MRI head, 08/19/2024: 1. No evidence of acute intracranial abnormality. 2. Motion limited study vital signs Vital Sign Date Time Temp Pulse Resp B/P (MAP) Pulse Ox O2 Delivery O2 Flow Rate FiO2 08/29/24 09:00 85 17 100/40 (60) 100 08/29/24 08:00 98.6 98.6 08/29/24 06:00 Room Air* 0 21 Total Intake and Output 08/28/24 08/28/24 08/29/24 15:00 23:00 07:00 Intake Total 866.877 ml 1325.000 ml 1176.254 ml Output Total 1675 ml 2235 ml Balance 866.877 ml -350.000 ml -1058.746 ml medications Current Medications Medications Dose Ordered Sig/Akiko Route Start Time Stop Time Status Last Admin Dose Admin Vancomycin HCl 200 ml @ 200 mls/hr Q12HR IV 08/10/24 22:00 UNV Pantoprazole Sodium 40 mg DAILY IV 08/11/24 10:00 08/29/24 10:11 40 MG Lactated Ringer's 1,000 ml @ 50 mls/hr Q20H IV 08/19/24 08:00 08/28/24 18:04 50 MLS/HR Enteral Nutritional Formula 240 ml TIDWM PO 08/20/24 18:00 08/29/24 10:12 240 ML Dextrose 50 ml UD PRN IV 08/21/24 09:30 Diagnostic Test (Pha) 1 strip Q6HR 08/21/24 12:00 Cancel Insulin Human Regular FOLLOW SLIDING SCALE Q6HR SC 08/21/24 12:00 Cancel Dextrose 50 ml UD IV 08/21/24 10:00 Cancel Norepinephrine Bitartrate 16 mg/ Sodium Chloride 250 ml @ 0.938 mls/ hr Q24H IV 08/22/24 14:00 08/27/24 11:16 1.875 MLS/HR Thiamine HCl 100 mg DAILY IV 08/23/24 10:00 08/29/24 10:11 100 MG Melatonin 3 mg HS PO 08/22/24 22:00 08/28/24 22:56 3 MG Midodrine 10 mg TID@0600,1200,1800 PO 08/23/24 12:00 08/29/24 06:36 10 MG Carbidopa/Levodopa 1 tab TID PO 08/25/24 09:45 08/29/24 06:36 1 TAB Diagnostic Test (Pha) 1 strip ACHS 08/25/24 11:30 08/29/24 07:00 1 STRIP Insulin Human Regular ACHS SC 08/25/24 11:30 08/27/24 11:30 2 UNITS Acetaminophen/ Hydrocodone Bitart 1 tab Q6HPRN PRN PO 08/25/24 10:00 Hold Morphine Sulfate 2 mg Q4HPRN PRN IV 08/25/24 12:45 08/29/24 05:12 2 MG Acetaminophen 650 mg Q6HPRN PRN PO 08/25/24 16:00 08/26/24 18:00 650 MG Enteral Nutritional Formula 28.8 gm TID PO 08/26/24 14:00 08/28/24 14:17 28.8 GM Linezolid 300 ml @ 150 mls/hr Q12HR IV 08/26/24 22:00 08/29/24 10:11 150 MLS/HR Fludrocortisone Acetate 0.1 mg DAILY PO 08/29/24 10:00 08/29/24 10:12 0.1 MG objective General: the patient is well developed and nourished. No acute distress. MUSCULOSKELETAL EXAM: Pressure sores MENTAL STATUS: Awake, oriented to person place SPEECH, LANGUAGE, HIGHER CORTICAL FUNCTION: no aphasia or dysathria. CRANIAL NERVES: Pupils are equal, round and reactive. EOMs full and conjugate. No nystagmus. Facial sensation intact in all three divisions bilaterally. Mandibular strength intact. Facial muscles symmetrical and strength intact. SENSATION: Sensation to touch and pinprick is Ok MOTOR: Normal tone in the upper and lower extremity. Normal muscle bulk. No fasciculations. He moves the arms REFLEXES: Deep tendon reflexes normal and symmetrical. No pathological reflexes. CEREBELLAR/COORDINATION: Deferred GAIT/STATION: deferred laboratory and microbiology Laboratory Tests 08/29/24 03:58 Test 08/29/24 03:58 Range/Units Serum Glucose 107 H 74-106 mg/dL Problem List Altered mental status/metabolic encephalopathy secondary to Sepsis Septic shock Respiratory failure Urinary tract infection Dehydration Acute kidney failure Hypernatremia Rhabdomyolysis Hand tremors, gait disturbance, low voice Parkinson's disease Rule out essential tremor Pressure sores Assessment/Plan Monitoring Supportive treatment ICU care Respiratory support p.r.n. Stabilize vitals Oxygen IV antiepileptics Hydration Sinemet 25/100, t.i.d. Midodrine Current pain management Okay to use Tylenol for pain control Wound care DVT prophylaxis GI prophylaxis Pulmonary on case Nephrology on case Surgery on case More recommendation per clinical course This medical document was created using an electronic medical record system with [employer] dictation system. Although this document has been carefully reviewed, there may still be some phonetic and typographical errors. These areas are purely typographical due to imperfections of the software programs, and do not reflect any compromise in the patient's medical care Prognosis poor Dietary Evaluation Review Comments: 1. If on Vent Consider Nepro 30ml/hr x 24 hr,( 58g pro 1274 kcal). this will support pt's needs at 100% protein, 94 % kcal. 2. If EN not possible, and NPO > 7 days, consider TPN per pharmacy. 3. If off Vent, and pass speech eval, offer Renal Specific -50g protein 2g Na 3 K Low phos, 4. If off vent on hemo dialysis, pass speech eval, offer Renal Standard 2 gNa 3 K, Low Phos diet. Expected Outcomes/Goals: advance to diet able to eat independently. Plan discussed with: Other EVELINE HUNTER MD Aug 29, 2024 10:14
[2024-08-29] MEDS: NOREPINEPHRINE BITARTRATE 16 MG in SODIUM CHL 0.9% 234 ML IV SCH (19:30)
--- NOTE | 2024-08-29 23:33 | DVHPN2 ---
Progress Note - Dictate Date Seen: Aug 29, 2024 Medical Necessity Reason Pt with a Central, PICC or Fol: Yes The following are medically ne: Powell Catheter Reason for powell catheter: Strict I&O Subjective Patient seen and examined at bedside. Breathing on room air. Overnight events reviewed. vital signs Vital Sign Date Time Temp Pulse Resp B/P (MAP) Pulse Ox O2 Delivery O2 Flow Rate FiO2 08/29/24 22:45 92 17 110/52 (71) 98 08/29/24 22:00 99.0 99.0 08/29/24 22:00 Room Air* 0 21 Total Intake and Output 08/28/24 08/28/24 08/29/24 15:00 23:00 07:00 Intake Total 866.877 ml 1325.000 ml 1176.254 ml Output Total 1675 ml 2235 ml Balance 866.877 ml -350.000 ml -1058.746 ml medications Current Medications Medications Dose Ordered Sig/Akiko Route Start Time Stop Time Status Last Admin Dose Admin Vancomycin HCl 200 ml @ 200 mls/hr Q12HR IV 08/10/24 22:00 UNV Pantoprazole Sodium 40 mg DAILY IV 08/11/24 10:00 08/29/24 10:11 40 MG Lactated Ringer's 1,000 ml @ 50 mls/hr Q20H IV 08/19/24 08:00 08/29/24 15:42 50 MLS/HR Enteral Nutritional Formula 240 ml TIDWM PO 08/20/24 18:00 08/29/24 15:42 240 ML Dextrose 50 ml UD PRN IV 08/21/24 09:30 Diagnostic Test (Pha) 1 strip Q6HR 08/21/24 12:00 Cancel Insulin Human Regular FOLLOW SLIDING SCALE Q6HR SC 08/21/24 12:00 Cancel Dextrose 50 ml UD IV 08/21/24 10:00 Cancel Thiamine HCl 100 mg DAILY IV 08/23/24 10:00 08/29/24 10:11 100 MG Melatonin 3 mg HS PO 08/22/24 22:00 08/29/24 21:41 3 MG Midodrine 10 mg TID@0600,1200,1800 PO 08/23/24 12:00 08/29/24 17:11 10 MG Carbidopa/Levodopa 1 tab TID PO 08/25/24 09:45 08/29/24 21:42 1 TAB Diagnostic Test (Pha) 1 strip ACHS 08/25/24 11:30 08/29/24 22:03 1 STRIP Insulin Human Regular ACHS SC 08/25/24 11:30 08/29/24 12:04 2 UNITS Acetaminophen/ Hydrocodone Bitart 1 tab Q6HPRN PRN PO 08/25/24 10:00 Hold Morphine Sulfate 2 mg Q4HPRN PRN IV 08/25/24 12:45 08/29/24 05:12 2 MG Acetaminophen 650 mg Q6HPRN PRN PO 08/25/24 16:00 08/26/24 18:00 650 MG Enteral Nutritional Formula 28.8 gm TID PO 08/26/24 14:00 08/29/24 21:42 28.8 GM Linezolid 300 ml @ 150 mls/hr Q12HR IV 08/26/24 22:00 08/29/24 21:41 150 MLS/HR Fludrocortisone Acetate 0.1 mg DAILY PO 08/29/24 10:00 08/29/24 10:12 0.1 MG Norepinephrine Bitartrate 16 mg/ Sodium Chloride 250 ml @ 0.938 mls/ hr Q24H IV 08/29/24 19:30 objective Gen.: Patient lying in bed in no apparent distress. Breathing on room air. Head: Normocephalic, atraumatic. Eyes: EOMI/PERRLA. Ears: Normal hearing. Normal anatomy. Neck/trachea: Trachea midline, supple. Nose: Normal external anatomy. Mouth: Moist mucous membranes. Chest: Decreased air entry bilaterally. No wheezing or rhonchi. Cardiovascular: Positive S1, positive S2. Regular rate and rhythm. Abdomen: Positive bowel sounds in all 4 quadrants. Soft, non-tender, non- distended. : Deferred. Rectal: Deferred. Skin: Warm, dry. Intact. Extremities: 2+ radial pulses bilaterally. No lower extremity edema. Neuro: Awake, alert, oriented x3. No gross motor or sensory deficits. Cranial nerves II through XII intact. Gait not assessed. laboratory and microbiology Laboratory Tests 08/29/24 03:58 Test 08/29/24 03:58 Range/Units Serum Glucose 107 H 74-106 mg/dL Assessment/Plan Impression: Acute hypoxic respiratory failure Leukocytosis Hypernatremia Parkinson's disease Acute metabolic encephalopathy Decubitus ulcers Sepsis Rhabdomyolysis Acute kidney injury Events: Remains on room air. No respiratory distress. Pressors for hemodynamic support. On Levophed 4 mcg/min Titrate to keep MAP above 65 mmHg/SBP above 90 mmHg. Follow up Surgery recommendations Wound care Continue midodrine 10 mg TID - BP is labile Continue antibiotics IV fluids with LR 50 ml/hr. Incentive spirometry Monitor hemoglobin Accu-Cheks for glycemic monitoring Off Lovenox Brain MRI done 08/19/24 showed no evidence of acute intracranial abnormality. Labs and imaging reviewed. Rest of plan as noted below. Plan: S/p extubation 08/15/24 Breathing on room air. Supplemental O2 PRN. CT head: No acute intracranial hemorrhage or stroke. Pressors for hemodynamic support. Titrate to keep MAP above 65 mmHg/SBP above 90 mmHg. Antibiotics. Monitor hemoglobin Head of bed elevation Aspiration precautions Monitor renal function due to Acute kidney injury. Monitor electrolytes. Supplement as necessary. Monitor sodium due to hypernatremia IV fluid hydration Do not over correct sodium. Sodium 136 (08/29/24) Nutritional support. Accu-Cheks, ISS. GI prophylaxis - Protonix DVT prophylaxis. Condition: Critical Prognosis: Poor given multiple comorbidities. Rest of plan per hospitalist and other consultants. A total of 35 minutes of critical care time was spent reviewing the patient record, examining the patient, making a diagnostic and therapeutic plan, discussing this plan with the medical personnel, following up on diagnostic studies and following the patient for clinical stability excluding any and all procedures. At least 50% of this time was spent in direct, [id number] contact. Thank you Dr. Newman for allowing me to participate in this patient's care. Further recommendations will depend on patient's clinical course. Please do not hesitate to contact me if you have any questions or concerns. This medical document was created using an electronic medical record system with [employer] system. Although this document has been carefully reviewed, there may still be some phonetic and typographical errors. These areas are purely typographical due to imperfections of the software programs, and do not reflect any compromise in the patient's medical care. Dietary Evaluation Review Comments: 1. If on Vent Consider Nepro 30ml/hr x 24 hr,( 58g pro 1274 kcal). this will support pt's needs at 100% protein, 94 % kcal. 2. If EN not possible, and NPO > 7 days, consider TPN per pharmacy. 3. If off Vent, and pass speech eval, offer Renal Specific -50g protein 2g Na 3 K Low phos, 4. If off vent on hemo dialysis, pass speech eval, offer Renal Standard 2 gNa 3 K, Low Phos diet. Expected Outcomes/Goals: advance to diet able to eat independently. Plan discussed with: Other (SRAVANI Panchal) Critical Care Time(min): 35 REY REAGAN MD Aug 29, 2024 23:33
[2024-08-30] VITALS (95 sets, daily range): BP systolic 83–132; BP diastolic 32–80; PULSE 73–109; RESP 10–24; TEMP 97.9–98.5; O2SAT 96–100
[2024-08-30 04:09] LABS: Basophils # (auto) 0 10 ^3/uL (0-0.2); Basophils % (auto) 0.6 % (0.0-2.0); Eosinophils # (auto) 0.2 10 ^3/uL (0-0.8); Eosinophils % (auto) 2.8 % (0.0-7.0); Hematocrit 27.6 % (41.0-53.0); Hemoglobin 9.2 g/dL (13.5-17.5); Lymphocytes # (auto) 1.5 10 ^3/uL (0.4-5.4); Lymphocytes % (auto) 27.3 % (10.0-50.0); Mean Corpuscular Hemoglobin 29.9 pg (28.0-32.0); Mean Corpuscular Hgb Conc. 33.3 g/dL (32.0-36.0); Mean Corpuscular Volume 89.8 fL (80.0-100.0); Monocytes # (auto) 0.4 10 ^3/uL (0-1.3); Monocytes % (auto) 7.9 % (0.0-12.0); Neutrophils # (auto) 3.4 10 ^3/uL (1.6-8.6); Neutrophils % (auto) 61.4 % (37.0-80.0); Platelet Count (auto) 257 10^3/uL (140-450); Red Blood Cells 3.07 10^6/uL (4.5-5.90); Red Cell Distribution Width 13.3 % (11.8-14.3); White Blood Cell 5.5 10^3/uL (4.4-10.8)
[2024-08-30 04:30] LABS: Alanine Aminotransferase 20 U/L (7-40); Anion Gap 5 (5-15); BUN/Creatinine Ratio 23.5 (10.0-20.0); Blood Urea Nitrogen 16 mg/dL (9-23); Calcium 8.8 mg/dL (8.7-10.4); Carbon Dioxide 26 mmol/L (20-31); Chloride 105 mmol/L (98-107); Glucose 101 mg/dL (74-106); Potassium 3.6 mmol/L (3.5-5.1)
[2024-08-30 04:31] LABS: Bilirubin, Total 0.6 mg/dL (0.2-1.0); Total Protein 6.2 g/dL (5.7-8.2)
[2024-08-30 04:43] LABS: Albumin 3.1 g/dL (3.2-4.8); Alkaline Phosphatase 195 U/L (46-116); Aspartate Aminotransferase 41 U/L (13-40); Sodium 136 mmol/L (136-145)
--- NOTE | 2024-08-30 10:08 | DVHPN2 ---
Progress Note - Dictate Date Seen: Aug 30, 2024 Medical Necessity Reason Pt with a Central, PICC or Fol: Yes The following are medically ne: Powell Catheter Reason for powell catheter: Strict I&O Subjective Mr. Howard is a 78 years old right-handed gentleman with a history of Parkinson's disease, the patient was admitted on 08/10 24 with a chief company of altered mental status I have seen in the ICU and examined the patient, I have discussed with his nurse, he looks tired, awake,, oriented to person, place, he knows year and the month, No tremors, but has cogwheeling in the right hand Blood pressure on the low side Levo 2.5 mcg/minute Respiratory culture, 08/12/2024: Klebsiella pneumoniae Blood culture, 08/10/24: Negative UDS, 08/10/2024: Negative Urinalysis, 08/10/2024: WBC 10, urine leukocyte: Trace WBC/HB/PLT/MCV, 08/20/24: 6.5/10.5/205/88.8 PT/INR/PTT, 08/14/2024: 13.9/1.34/30.9 Na, 08/10/2024: 170, 168, 08/11/2024: 165, 08/12/2024: 164, 08/13/2024: 161, 08/14/2024: 156, 08/19/2024: 149, 08/20/24: 149, 08/23/2023: 142 BUN/CR, 08/18/2024: 45/1.01, 08/20/2024: 42/1.07 CPK, 08/10/2024: 2513, 08/11/2024: 2525, 08/12/2024: 2844, 08/13/2024: 4268, 08/21/2024: 510 TBI/AST/ALT/AP, 08/20/2024: 1.4/148/210/179, 08/23/2024: 08/23/2024: 0.9/61/104/180 Ammonia, 08/23/2024: < 10 Hepatitis panel, 08/11/2024: Negative TSH, 08/11/2024: 4.48 Venous Doppler, lower extremities, 08/13/2024: No left DVT. Positive DVT involving the right lower extremity common femoral vein, femoral vein, popliteal vein and calf Chest x-ray, 08/10/2024: No acute cardiopulmonary disease. Elevation of the left hemidiaphragm. Enteric tube and endotracheal tube are in satisfactory position Chest x-ray, 08/21/2024: Increased congestion CT head, 08/10/2024: 1. No acute intracranial hemorrhage, midline shift or mass effect. 2. Generalized brain atrophy. 3. Small vessel ischemic/degenerative changes. 4. If symptoms persists, further evaluation with MRI is recommended MRI head, 08/19/2024: 1. No evidence of acute intracranial abnormality. 2. Motion limited study vital signs Vital Sign Date Time Temp Pulse Resp B/P (MAP) Pulse Ox O2 Delivery O2 Flow Rate FiO2 08/30/24 09:45 86 16 114/57 (76) 100 08/30/24 08:00 Room Air* 0 21 08/30/24 08:00 98.2 98.2 Total Intake and Output 08/29/24 08/29/24 08/30/24 15:00 23:00 07:00 Intake Total 730.00 ml 1238.938 ml 1026.248 ml Output Total 1750 ml 3200 ml Balance 730.00 ml -511.062 ml -2173.752 ml medications Current Medications Medications Dose Ordered Sig/Akiko Route Start Time Stop Time Status Last Admin Dose Admin Vancomycin HCl 200 ml @ 200 mls/hr Q12HR IV 08/10/24 22:00 UNV Pantoprazole Sodium 40 mg DAILY IV 08/11/24 10:00 08/29/24 10:11 40 MG Lactated Ringer's 1,000 ml @ 50 mls/hr Q20H IV 08/19/24 08:00 08/29/24 15:42 50 MLS/HR Enteral Nutritional Formula 240 ml TIDWM PO 08/20/24 18:00 08/29/24 15:42 240 ML Dextrose 50 ml UD PRN IV 08/21/24 09:30 Diagnostic Test (Pha) 1 strip Q6HR 08/21/24 12:00 Cancel Insulin Human Regular FOLLOW SLIDING SCALE Q6HR SC 08/21/24 12:00 Cancel Dextrose 50 ml UD IV 08/21/24 10:00 Cancel Thiamine HCl 100 mg DAILY IV 08/23/24 10:00 08/29/24 10:11 100 MG Melatonin 3 mg HS PO 08/22/24 22:00 08/29/24 21:41 3 MG Midodrine 10 mg TID@0600,1200,1800 PO 08/23/24 12:00 08/30/24 06:11 10 MG Carbidopa/Levodopa 1 tab TID PO 08/25/24 09:45 08/30/24 06:11 1 TAB Diagnostic Test (Pha) 1 strip ACHS 08/25/24 11:30 08/30/24 07:22 1 STRIP Insulin Human Regular ACHS SC 08/25/24 11:30 08/29/24 12:04 2 UNITS Acetaminophen/ Hydrocodone Bitart 1 tab Q6HPRN PRN PO 08/25/24 10:00 Hold Morphine Sulfate 2 mg Q4HPRN PRN IV 08/25/24 12:45 08/30/24 02:00 2 MG Acetaminophen 650 mg Q6HPRN PRN PO 08/25/24 16:00 08/30/24 03:58 650 MG Enteral Nutritional Formula 28.8 gm TID PO 08/26/24 14:00 08/30/24 06:11 28.8 GM Linezolid 300 ml @ 150 mls/hr Q12HR IV 08/26/24 22:00 08/29/24 21:41 150 MLS/HR Fludrocortisone Acetate 0.1 mg DAILY PO 08/29/24 10:00 08/29/24 10:12 0.1 MG Norepinephrine Bitartrate 16 mg/ Sodium Chloride 250 ml @ 0.938 mls/ hr Q24H IV 08/29/24 19:30 objective General: the patient is well developed and nourished. No acute distress. MENTAL STATUS: Awake, oriented to person place SPEECH, LANGUAGE, HIGHER CORTICAL FUNCTION: no aphasia or dysathria. CRANIAL NERVES: Pupils are equal, round and reactive. EOMs full and conjugate. No nystagmus. Facial sensation intact in all three divisions bilaterally. Mandibular strength intact. Facial muscles symmetrical and strength intact. SENSATION: Sensation to touch and pinprick is Ok MOTOR: Normal muscle bulk. No fasciculations. He moves the arms REFLEXES: Deep tendon reflexes normal and symmetrical. No pathological reflexes. CEREBELLAR/COORDINATION: Deferred GAIT/STATION: deferred laboratory and microbiology Laboratory Tests 08/30/24 03:18 Test 08/30/24 03:18 Range/Units Serum Glucose 101 74-106 mg/dL Problem List Altered mental status/metabolic encephalopathy secondary to Sepsis Septic shock Respiratory failure Urinary tract infection Dehydration Acute kidney failure Hypernatremia Rhabdomyolysis Hand tremors, gait disturbance, low voice Parkinson's disease Rule out essential tremor Pressure sores Assessment/Plan Monitoring Supportive treatment ICU care Respiratory support p.r.n. Stabilize vitals Oxygen IV antiepileptics Hydration Sinemet 25/100, t.i.d. Midodrine Current pain management Okay to use Tylenol for pain control Wound care DVT prophylaxis GI prophylaxis Pulmonary on case Nephrology on case Surgery on case More recommendation per clinical course This medical document was created using an electronic medical record system with [employer] dictation system. Although this document has been carefully reviewed, there may still be some phonetic and typographical errors. These areas are purely typographical due to imperfections of the software programs, and do not reflect any compromise in the patient's medical care Prognosis poor Dietary Evaluation Review Comments: 1. If on Vent Consider Nepro 30ml/hr x 24 hr,( 58g pro 1274 kcal). this will support pt's needs at 100% protein, 94 % kcal. 2. If EN not possible, and NPO > 7 days, consider TPN per pharmacy. 3. If off Vent, and pass speech eval, offer Renal Specific -50g protein 2g Na 3 K Low phos, 4. If off vent on hemo dialysis, pass speech eval, offer Renal Standard 2 gNa 3 K, Low Phos diet. Expected Outcomes/Goals: advance to diet able to eat independently. Plan discussed with: Other EVELINE HUNTER MD Aug 30, 2024 10:08
--- NOTE | 2024-08-30 11:49 | DVHPN2 ---
Subjective Patient was alert and following commands. Reports generalized weakness. Reviewed: Care Plan, H&P, Labs, Medications, Previous Orders, Radiology, Other (Consultants) Changes from previous H/P or p: No Changes General: Per HPI Objective Vitals Vital Signs Date Time Temp Pulse Resp B/P (MAP) Pulse Ox O2 Delivery O2 Flow Rate FiO2 08/30/24 10:13 98.2 08/30/24 09:45 86 16 114/57 (76) 100 08/30/24 08:00 Room Air* 0 21 Intake/Output Intake and Output 08/30/24 07:00 Intake Total 2995.186 ml Output Total 4950 ml Balance -1954.814 ml Intake Oral 1100 ml IV Total 1895.186 ml Output Urine Total 4950 ml General Appearance: Alert, Oriented X3, Cooperative, No acute distress HEENT: Atraumatic, PERRLA Lungs: Clear to auscultation, Normal air movement Cardiovascular: Regular rate, Normal S1, Normal S2 Abdomen: Normal bowel sounds, Soft, No tenderness Musculoskeletal: Weak motor strength RUE, Weak motor strength LUE, Weak motor strength RLE, Weak motor strength LLE Extremities: Other (Some bilateral lower extremities edema) Skin: Wounds (Extensive wounds to upper back and thigh. No noticeable drainage.) Psych/Mental Status: Other (Patient was awake and following commands.) Medications Current Medications Medications Dose Ordered Sig/Akiko Route Start Time Stop Time Status Last Admin Dose Admin Vancomycin HCl 200 ml @ 200 mls/hr Q12HR IV 08/10/24 22:00 UNV Pantoprazole Sodium 40 mg DAILY IV 08/11/24 10:00 08/30/24 10:12 40 MG Lactated Ringer's 1,000 ml @ 50 mls/hr Q20H IV 08/19/24 08:00 08/29/24 15:42 50 MLS/HR Enteral Nutritional Formula 240 ml TIDWM PO 08/20/24 18:00 08/30/24 10:13 240 ML Dextrose 50 ml UD PRN IV 08/21/24 09:30 Diagnostic Test (Pha) 1 strip Q6HR 08/21/24 12:00 Cancel Insulin Human Regular FOLLOW SLIDING SCALE Q6HR SC 08/21/24 12:00 Cancel Dextrose 50 ml UD IV 08/21/24 10:00 Cancel Thiamine HCl 100 mg DAILY IV 08/23/24 10:00 08/30/24 10:12 100 MG Melatonin 3 mg HS PO 08/22/24 22:00 08/29/24 21:41 3 MG Midodrine 10 mg TID@0600,1200,1800 PO 08/23/24 12:00 08/30/24 11:22 10 MG Carbidopa/Levodopa 1 tab TID PO 08/25/24 09:45 08/30/24 06:11 1 TAB Diagnostic Test (Pha) 1 strip ACHS 08/25/24 11:30 08/30/24 11:25 1 STRIP Insulin Human Regular ACHS SC 08/25/24 11:30 08/30/24 11:29 2 UNITS Acetaminophen/ Hydrocodone Bitart 1 tab Q6HPRN PRN PO 08/25/24 10:00 Hold Morphine Sulfate 2 mg Q4HPRN PRN IV 08/25/24 12:45 08/30/24 02:00 2 MG Acetaminophen 650 mg Q6HPRN PRN PO 08/25/24 16:00 08/30/24 10:13 650 MG Enteral Nutritional Formula 28.8 gm TID PO 08/26/24 14:00 08/30/24 06:11 28.8 GM Linezolid 300 ml @ 150 mls/hr Q12HR IV 08/26/24 22:00 08/30/24 10:13 150 MLS/HR Fludrocortisone Acetate 0.1 mg DAILY PO 08/29/24 10:00 08/30/24 10:12 0.1 MG Norepinephrine Bitartrate 16 mg/ Sodium Chloride 250 ml @ 0.938 mls/ hr Q24H IV 08/29/24 19:30 Laboratory Results Laboratory Tests 08/30/24 03:18 Chemistry Test 08/30/24 03:18 Albumin 3.1 g/dL (3.2-4.8) L Calcium Level 8.8 mg/dL (8.7-10.4) Total Protein 6.2 g/dL (5.7-8.2) LFT Test 08/30/24 03:18 Alanine Aminotransferase (ALT) 20 U/L (7-40) Alkaline Phosphatase 195 U/L (46-116) H Aspartate Amino Transferase (AST) 41 U/L (13-40) H Total Bilirubin 0.6 mg/dL (0.2-1.0) Urinalysis Test 08/11/24 13:02 Urine Color Yellow (Yellow) Urine Clarity Turbid (Clear) H Urine pH 5.5 (5.0-9.0) Urine Specific Deport 1.018 (1.001-1.035) Urine Protein 1+ (Negative) H Urine Ketones Negative (Negative) Urine Blood 3+ /uL (Negative) H Urine Nitrite Negative (Negative) Urine Bilirubin Negative (Negative) Urine Urobilinogen 4 mg/dL (Negative) H Urine Leukocyte Esterase 1+ /uL (Negative) Urine RBC 13 /hpf (0 - 3) Urine WBC 14 /hpf (0 - 3) Urine Squamous Epithelial Cells Few /hpf (<5) Urine Bacteria Few /hpf (None Seen) H Urine Hyaline Casts Few /lpf (0 - 2) Urine Granular Casts Few /lpf (0) Urine Mucus Few (None Seen) Urine Creatinine 67.44 mg/dL (30.0-125.0) Urine Protein/Creatinine Ratio 1.00 Urine Sodium 32 mmol/L (40-220) L Urine Glucose Normal mg/dL (Normal) Urine Total Protein 67.3 mg/dL (1-14) H Microbiology Microbiology Date/Time Source Procedure Growth Status 08/26/24 15:45 Penis Gram Stain - Final Resulted 08/26/24 15:45 Penis Wound Culture - Preliminary Resulted 08/22/24 15:28 Back Lumbar Gram Stain - Final Complete 08/22/24 15:28 Wound Culture - Final Enterococcus faecium - VRE Complete 08/12/24 19:02 Bronchial Washings Gram Stain - Final Resulted 08/12/24 19:02 Respiratory Culture - Preliminary Klebsiella pneumoniae Presumptive Ema albicans Resulted 08/10/24 14:08 Blood Blood Culture - Final NO GROWTH AFTER 5 DAYS OF INCUBATION. Complete Labs and/or images reviewed: Labs reviewed by me, Image(s) reviewed by me Assessment/Plan Assessment/Plan Impression: -severe sepsis with shock -metabolic encephalopathy -acute hypoxic respiratory failure on mechanical ventilation, extubated -sacral decubitus ulcer -labile blood sugar with hypoglycemia -Parkinson's disease -deconditioning -rhabdomyolysis -mild protein malnutrition -hyponatremia -constipation Plan: Events: Patient awake and following some commands. Continues to be in septic shock on Levophed at 3 micrograms/minute. Plan of care discussed with patient's daughter. Plans for debridement in the future. No active bleeding when I visualized the wounds. -start bowel regimen -DC Welch catheter after bladder training -continue Zyvox -poor oral intake. Start LR at 50 mL/hour with TPN -patient has swallow evaluation with pureed diet. Continues to have poor oral intake -wound care consultation -strict aspiration precaution -repeat labs in a.m. Critical care time spent with patient discussing and formulating plan of care: 40 minutes. This does not include time spent performing procedures. This medical document was created using an electronic medical record system with [employer] dictation system. Although this document has been carefully reviewed, there may still be some phonetic and typographical errors. These areas are purely typographical due to imperfections of the software programs, and do not reflect any compromise in the patient's medical care. Plan discussed with: Patient, Other (RN) My Orders Orders - BECK ONEAL NP Procedure Category Date Status Time Hydrocodone-Acet PHA 08/30/24 Transmitted 5/325mg Tab ([facility] 11:30 Lactulose Oral PHA 08/30/24 Transmitted 11:30 Pureed DIET 08/30/24 Transmitted Lunch Date of Service: Aug 30, 2024 Billing Provider: BECK ONEAL NP Common Visit Codes: 82108-[id number] CARE 30-74 MIN BECK ONEAL NP Aug 30, 2024 11:49
[2024-08-30] MEDS: HYDROcodone-ACET 5/325MG TAB PO PRN (18:07)
--- NOTE | 2024-08-30 21:24 | DVH ---
EXAM: XY CHEST PORTABLE TECHNIQUE: Single frontal chest radiograph CLINICAL HISTORY: CHECK IJ TLC PLACEMENT COMPARISON: XY CHEST PORTABLE on DOS: 08/21/24, XY CHEST XRAY 1 VIEW on DOS: 08/16/24, XY CHEST PORTABL E on DOS: 08/15/24 Findings/Impression: Frontal chest radiograph demonstrates no acute osseous or superficial soft tissue abnormalities. Right sided IJ catheter terminates near the mid SVC. The trachea is midline. The cardiac silhouette and mediastinum are within normal limits. No pneumothorax, pleural effusions, or consolidations.
--- NOTE | 2024-08-30 22:51 | DVHPN2 ---
Progress Note - Dictate Date Seen: Aug 30, 2024 Medical Necessity Reason Pt with a Central, PICC or Fol: Yes The following are medically ne: Powell Catheter Reason for powell catheter: Strict I&O Subjective Patient seen and examined at bedside. Breathing on room air. Overnight events reviewed. vital signs Vital Sign Date Time Temp Pulse Resp B/P (MAP) Pulse Ox O2 Delivery O2 Flow Rate FiO2 08/30/24 19:00 87 24 95/53 (67) 98 08/30/24 18:00 Room Air* 0 21 08/30/24 16:00 97.9 97.9 Total Intake and Output 08/29/24 08/29/24 08/30/24 15:00 23:00 07:00 Intake Total 730.00 ml 1238.938 ml 1026.248 ml Output Total 1750 ml 3200 ml Balance 730.00 ml -511.062 ml -2173.752 ml medications Current Medications Medications Dose Ordered Sig/Akiko Route Start Time Stop Time Status Last Admin Dose Admin Vancomycin HCl 200 ml @ 200 mls/hr Q12HR IV 08/10/24 22:00 UNV Pantoprazole Sodium 40 mg DAILY IV 08/11/24 10:00 08/30/24 10:12 40 MG Lactated Ringer's 1,000 ml @ 50 mls/hr Q20H IV 08/19/24 08:00 08/30/24 11:52 50 MLS/HR Enteral Nutritional Formula 240 ml TIDWM PO 08/20/24 18:00 08/30/24 18:07 240 ML Dextrose 50 ml UD PRN IV 08/21/24 09:30 Diagnostic Test (Pha) 1 strip Q6HR 08/21/24 12:00 Cancel Insulin Human Regular FOLLOW SLIDING SCALE Q6HR SC 08/21/24 12:00 Cancel Dextrose 50 ml UD IV 08/21/24 10:00 Cancel Thiamine HCl 100 mg DAILY IV 08/23/24 10:00 08/30/24 10:12 100 MG Melatonin 3 mg HS PO 08/22/24 22:00 08/30/24 21:50 3 MG Midodrine 10 mg TID@0600,1200,1800 PO 08/23/24 12:00 08/30/24 18:01 10 MG Carbidopa/Levodopa 1 tab TID PO 08/25/24 09:45 08/30/24 21:50 1 TAB Diagnostic Test (Pha) 1 strip ACHS 08/25/24 11:30 08/30/24 21:50 1 STRIP Insulin Human Regular ACHS SC 08/25/24 11:30 08/30/24 11:29 2 UNITS Morphine Sulfate 2 mg Q4HPRN PRN IV 08/25/24 12:45 Hold 08/30/24 02:00 2 MG Acetaminophen 650 mg Q6HPRN PRN PO 08/25/24 16:00 08/30/24 10:13 650 MG Enteral Nutritional Formula 28.8 gm TID PO 08/26/24 14:00 08/30/24 22:00 28.8 GM Linezolid 300 ml @ 150 mls/hr Q12HR IV 08/26/24 22:00 08/30/24 21:50 150 MLS/HR Fludrocortisone Acetate 0.1 mg DAILY PO 08/29/24 10:00 08/30/24 10:12 0.1 MG Norepinephrine Bitartrate 16 mg/ Sodium Chloride 250 ml @ 0.938 mls/ hr Q24H IV 08/29/24 19:30 Acetaminophen/ Hydrocodone Bitart 1 tab Q4HPRN PRN PO 08/30/24 11:30 08/30/24 18:07 1 TAB Lactulose 30 ml BIDPRN PRN PO 08/30/24 11:30 objective Gen.: Patient lying in bed in no apparent distress. Breathing on room air. Head: Normocephalic, atraumatic. Eyes: EOMI/PERRLA. Ears: Normal hearing. Normal anatomy. Neck/trachea: Trachea midline, supple. Nose: Normal external anatomy. Mouth: Moist mucous membranes. Chest: Decreased air entry bilaterally. No wheezing or rhonchi. Cardiovascular: Positive S1, positive S2. Regular rate and rhythm. Abdomen: Positive bowel sounds in all 4 quadrants. Soft, non-tender, non- distended. : Deferred. Rectal: Deferred. Skin: Warm, dry. Intact. Extremities: 2+ radial pulses bilaterally. No lower extremity edema. Neuro: Awake, alert, oriented x3. No gross motor or sensory deficits. Cranial nerves II through XII intact. Gait not assessed. laboratory and microbiology Laboratory Tests 08/30/24 03:18 Test 08/30/24 03:18 Range/Units Serum Glucose 101 74-106 mg/dL Assessment/Plan Impression: Acute hypoxic respiratory failure Leukocytosis Hypernatremia Parkinson's disease Acute metabolic encephalopathy Decubitus ulcers Sepsis Rhabdomyolysis Acute kidney injury Events: Remains on room air. No respiratory distress. Pressors for hemodynamic support. On Levophed 1.5 mcg/min Titrate to keep MAP above 65 mmHg/SBP above 90 mmHg. Improved pressor requirements Plan for debridement by Surgery in AM. Follow up Surgery recommendations Wound care Continue midodrine 10 mg TID - BP is labile Continue antibiotics IV fluids with LR 50 ml/hr. Incentive spirometry Monitor hemoglobin Accu-Cheks for glycemic monitoring Brain MRI done 08/19/24 showed no evidence of acute intracranial abnormality. Labs and imaging reviewed. Rest of plan as noted below. Plan: S/p extubation 08/15/24 Breathing on room air. Supplemental O2 PRN. CT head: No acute intracranial hemorrhage or stroke. Pressors for hemodynamic support. Titrate to keep MAP above 65 mmHg/SBP above 90 mmHg. Antibiotics. Monitor hemoglobin Head of bed elevation Aspiration precautions Monitor renal function due to Acute kidney injury. Monitor electrolytes. Supplement as necessary. Monitor sodium due to hypernatremia IV fluid hydration Do not over correct sodium. Sodium 136 (08/29/24) Nutritional support. Accu-Cheks, ISS. GI prophylaxis - Protonix DVT prophylaxis. Condition: Critical Prognosis: Poor given multiple comorbidities. Rest of plan per hospitalist and other consultants. A total of 35 minutes of critical care time was spent reviewing the patient record, examining the patient, making a diagnostic and therapeutic plan, discussing this plan with the medical personnel, following up on diagnostic studies and following the patient for clinical stability excluding any and all procedures. At least 50% of this time was spent in direct, [id number] contact. Thank you Dr. Newman for allowing me to participate in this patient's care. Further recommendations will depend on patient's clinical course. Please do not hesitate to contact me if you have any questions or concerns. This medical document was created using an electronic medical record system with [employer] system. Although this document has been carefully reviewed, there may still be some phonetic and typographical errors. These areas are purely typographical due to imperfections of the software programs, and do not reflect any compromise in the patient's medical care. Dietary Evaluation Review Comments: 1. If on Vent Consider Nepro 30ml/hr x 24 hr,( 58g pro 1274 kcal). this will support pt's needs at 100% protein, 94 % kcal. 2. If EN not possible, and NPO > 7 days, consider TPN per pharmacy. 3. If off Vent, and pass speech eval, offer Renal Specific -50g protein 2g Na 3 K Low phos, 4. If off vent on hemo dialysis, pass speech eval, offer Renal Standard 2 gNa 3 K, Low Phos diet. Expected Outcomes/Goals: advance to diet able to eat independently. Plan discussed with: Other (SRAVANI Panchal) Critical Care Time(min): 35 REY REAGAN MD Aug 30, 2024 22:51
[2024-08-31] VITALS (73 sets, daily range): BP systolic 93–148; BP diastolic 49–86; PULSE 78–109; RESP 8–28; TEMP 97.8–99.1; O2SAT 98–100
[2024-08-31 04:02] LABS: Basophils # (auto) 0 10 ^3/uL (0-0.2); Basophils % (auto) 0.5 % (0.0-2.0); Eosinophils # (auto) 0.1 10 ^3/uL (0-0.8); Eosinophils % (auto) 2.2 % (0.0-7.0); Hematocrit 27.2 % (41.0-53.0); Hemoglobin 9.1 g/dL (13.5-17.5); Lymphocytes # (auto) 1.4 10 ^3/uL (0.4-5.4); Lymphocytes % (auto) 23.4 % (10.0-50.0); Mean Corpuscular Hemoglobin 29.4 pg (28.0-32.0); Mean Corpuscular Hgb Conc. 33.6 g/dL (32.0-36.0); Mean Corpuscular Volume 87.6 fL (80.0-100.0); Monocytes # (auto) 0.4 10 ^3/uL (0-1.3); Monocytes % (auto) 7.3 % (0.0-12.0); Neutrophils % (auto) 66.6 % (37.0-80.0); Platelet Count (auto) 255 10^3/uL (140-450); Red Blood Cells 3.11 10^6/uL (4.5-5.90); Red Cell Distribution Width 13.2 % (11.8-14.3)
[2024-08-31 04:14] LABS: Chloride 103 mmol/L (98-107); Potassium 3.6 mmol/L (3.5-5.1)
[2024-08-31 04:16] LABS: Anion Gap 5 (5-15); Calcium 8.8 mg/dL (8.7-10.4); Carbon Dioxide 27 mmol/L (20-31)
[2024-08-31 04:21] LABS: BUN/Creatinine Ratio 24.4 (10.0-20.0); Blood Urea Nitrogen 19 mg/dL (9-23)
[2024-08-31 04:23] LABS: Glucose 114 mg/dL (74-106); Sodium 135 mmol/L (136-145)
[2024-08-31] MEDS ORDERED: MORPHINE SULFATE INJ 2 MG/ml SYRG IV PRN (08:15)
--- NOTE | 2024-08-31 08:25 | DVHPN2 ---
Subjective On low dose Levophed Confused c/o pain "everywhere" Reviewed: Care Plan, H&P, Labs, Medications, Previous Orders, Radiology, Other (Consultants) Changes from previous H/P or p: Changes General: Per HPI Objective Vitals Vital Signs Date Time Temp Pulse Resp B/P (MAP) Pulse Ox O2 Delivery O2 Flow Rate FiO2 08/31/24 07:00 100 22 126/60 (82) 100 08/31/24 06:00 Room Air* 0 21 08/31/24 04:00 97.8 97.8 Intake/Output Intake and Output 08/31/24 07:00 Intake Total 3041.3526 ml Output Total 1500 ml Balance 1541.3526 ml Intake Oral 1250 ml IV Total 1791.3526 ml Output Urine Total 1500 ml General Appearance: Alert, Oriented X3, Cooperative, No acute distress HEENT: Atraumatic, PERRLA Lungs: Clear to auscultation, Normal air movement Cardiovascular: Regular rate, Normal S1, Normal S2 Abdomen: Normal bowel sounds, Soft, No tenderness Musculoskeletal: Weak motor strength RUE, Weak motor strength LUE, Weak motor strength RLE, Weak motor strength LLE Extremities: Other (Some bilateral lower extremities edema) Skin: Wounds (Extensive wounds to upper back and thigh. No noticeable drainage.) Psych/Mental Status: Other (Patient was awake and following commands.) Medications Current Medications Medications Dose Ordered Sig/Akiko Route Start Time Stop Time Status Last Admin Dose Admin Vancomycin HCl 200 ml @ 200 mls/hr Q12HR IV 08/10/24 22:00 UNV Pantoprazole Sodium 40 mg DAILY IV 08/11/24 10:00 08/30/24 10:12 40 MG Lactated Ringer's 1,000 ml @ 50 mls/hr Q20H IV 08/19/24 08:00 08/30/24 11:52 50 MLS/HR Enteral Nutritional Formula 240 ml TIDWM PO 08/20/24 18:00 08/30/24 18:07 240 ML Dextrose 50 ml UD PRN IV 08/21/24 09:30 Diagnostic Test (Pha) 1 strip Q6HR 08/21/24 12:00 Cancel Insulin Human Regular FOLLOW SLIDING SCALE Q6HR SC 08/21/24 12:00 Cancel Dextrose 50 ml UD IV 08/21/24 10:00 Cancel Thiamine HCl 100 mg DAILY IV 08/23/24 10:00 08/30/24 10:12 100 MG Melatonin 3 mg HS PO 08/22/24 22:00 08/30/24 21:50 3 MG Midodrine 10 mg TID@0600,1200,1800 PO 08/23/24 12:00 08/30/24 18:01 10 MG Carbidopa/Levodopa 1 tab TID PO 08/25/24 09:45 08/30/24 21:50 1 TAB Diagnostic Test (Pha) 1 strip ACHS 08/25/24 11:30 08/31/24 07:27 1 STRIP Insulin Human Regular ACHS SC 08/25/24 11:30 08/31/24 07:30 2 UNITS Acetaminophen 650 mg Q6HPRN PRN PO 08/25/24 16:00 08/30/24 10:13 650 MG Enteral Nutritional Formula 28.8 gm TID PO 08/26/24 14:00 08/30/24 22:00 28.8 GM Linezolid 300 ml @ 150 mls/hr Q12HR IV 08/26/24 22:00 08/30/24 21:50 150 MLS/HR Fludrocortisone Acetate 0.1 mg DAILY PO 08/29/24 10:00 08/30/24 10:12 0.1 MG Norepinephrine Bitartrate 16 mg/ Sodium Chloride 250 ml @ 0.938 mls/ hr Q24H IV 08/29/24 19:30 Acetaminophen/ Hydrocodone Bitart 1 tab Q4HPRN PRN PO 08/30/24 11:30 08/31/24 01:45 1 TAB Lactulose 30 ml BIDPRN PRN PO 08/30/24 11:30 Morphine Sulfate 2 mg Q4HPRN PRN IV 08/31/24 08:15 UNV Laboratory Results Laboratory Tests 08/31/24 03:20 Chemistry Test 08/31/24 03:20 Calcium Level 8.8 mg/dL (8.7-10.4) Urinalysis Test 08/11/24 13:02 Urine Color Yellow (Yellow) Urine Clarity Turbid (Clear) H Urine pH 5.5 (5.0-9.0) Urine Specific [place] 1.018 (1.001-1.035) Urine Protein 1+ (Negative) H Urine Ketones Negative (Negative) Urine Blood 3+ /uL (Negative) H Urine Nitrite Negative (Negative) Urine Bilirubin Negative (Negative) Urine Urobilinogen 4 mg/dL (Negative) H Urine Leukocyte Esterase 1+ /uL (Negative) Urine RBC 13 /hpf (0 - 3) Urine WBC 14 /hpf (0 - 3) Urine Squamous Epithelial Cells Few /hpf (<5) Urine Bacteria Few /hpf (None Seen) H Urine Hyaline Casts Few /lpf (0 - 2) Urine Granular Casts Few /lpf (0) Urine Mucus Few (None Seen) Urine Creatinine 67.44 mg/dL (30.0-125.0) Urine Protein/Creatinine Ratio 1.00 Urine Sodium 32 mmol/L (40-220) L Urine Glucose Normal mg/dL (Normal) Urine Total Protein 67.3 mg/dL (1-14) H Microbiology Microbiology Date/Time Source Procedure Growth Status 08/26/24 15:45 Penis Gram Stain - Final Complete 08/26/24 15:45 Wound Culture - Final Pseudo fluorescence/putida Enterococcus faecium - VRE Presumptive Ema albicans Complete 08/22/24 15:28 Back Lumbar Gram Stain - Final Complete 08/22/24 15:28 Wound Culture - Final Enterococcus faecium - VRE Complete 08/12/24 19:02 Bronchial Washings Gram Stain - Final Resulted 08/12/24 19:02 Respiratory Culture - Preliminary Klebsiella pneumoniae Presumptive Ema albicans Resulted 08/10/24 14:08 Blood Blood Culture - Final NO GROWTH AFTER 5 DAYS OF INCUBATION. Complete Assessment/Plan Assessment/Plan Sepsis with septic shock Metabolic encephalopathy, Wound infection of left buttock and back Parkinson's disease R leg DVT Hypernatremia: resolved DAYLIN: Better Respiratory failure: Better PLAN: 08/31/24: IV antibiotics: Zyvox, add Meropenem, consult ID Levophed drar German to do I$D for wound IV fluids: LR Sinemet Nutritional supplements Midodrine Florinef Small dose morphine for pain NPO for possible surgery today Plan discussed with: Patient, Other My Orders Orders - JELENA GAINES MD Procedure Category Date Status Time * Infectious Jose Maria- CONS 08/31/24 Transmitted Mireya Miller 08:11 Meropenem 1gm Ivpb X PHA 08/31/24 Verified ONE 08:30 Meropenem 1gm PHA 1/15/25 Verified Q8h(Gfr>50) 14:00 Date of Service: Aug 31, 2024 Billing Provider: JELENA GAINES MD Common Visit Codes: NOT BILLABLE JELENA GAINES MD Aug 31, 2024 08:25
[2024-08-31] MEDS: MEROPENEM 1GM IVPB 50 ML IV ONE (08:57)
[2024-08-31] MEDS: MORPHINE SULFATE INJ 2 MG/ml SYRG IV PRN (08:58)
--- NOTE | 2024-08-31 10:48 | DVHPN2 ---
Progress Note - Dictate Date Seen: Aug 31, 2024 Medical Necessity Reason Pt with a Central, PICC or Fol: Yes The following are medically ne: Powell Catheter Reason for powell catheter: Strict I&O Subjective Mr. Howard is a 78 years old right-handed gentleman with a history of Parkinson's disease, the patient was admitted on 08/10 24 with a chief company of altered mental status I have seen in the ICU and examined the patient, I have discussed with his nurse, he looks tired, awake,, oriented to person, place, he knows year and the month, but he may in the able to answer my questions properly He was confused earlier today, he saw he was in [place] Tremor and other Parkinson's symptoms keep doing better Levo 0.5 mcg/minute Respiratory culture, 08/12/2024: Klebsiella pneumoniae Blood culture, 08/10/24: Negative UDS, 08/10/2024: Negative Urinalysis, 08/10/2024: WBC 10, urine leukocyte: Trace WBC/HB/PLT/MCV, 08/20/24: 6.5/10.5/205/88.8 PT/INR/PTT, 08/14/2024: 13.9/1.34/30.9 Na, 08/10/2024: 170, 168, 08/11/2024: 165, 08/12/2024: 164, 08/13/2024: 161, 08/14/2024: 156, 08/19/2024: 149, 08/20/24: 149, 08/23/2023: 142 BUN/CR, 08/18/2024: 45/1.01, 08/20/2024: 42/1.07 CPK, 08/10/2024: 2513, 08/11/2024: 2525, 08/12/2024: 2844, 08/13/2024: 4268, 08/21/2024: 510 TBI/AST/ALT/AP, 08/20/2024: 1.4/148/210/179, 08/23/2024: 08/23/2024: 0.9/61/104/180 Ammonia, 08/23/2024: < 10 Hepatitis panel, 08/11/2024: Negative TSH, 08/11/2024: 4.48 Venous Doppler, lower extremities, 08/13/2024: No left DVT. Positive DVT involving the right lower extremity common femoral vein, femoral vein, popliteal vein and calf Chest x-ray, 08/10/2024: No acute cardiopulmonary disease. Elevation of the left hemidiaphragm. Enteric tube and endotracheal tube are in satisfactory position Chest x-ray, 08/21/2024: Increased congestion CT head, 08/10/2024: 1. No acute intracranial hemorrhage, midline shift or mass effect. 2. Generalized brain atrophy. 3. Small vessel ischemic/degenerative changes. 4. If symptoms persists, further evaluation with MRI is recommended MRI head, 08/19/2024: 1. No evidence of acute intracranial abnormality. 2. Motion limited study vital signs Vital Sign Date Time Temp Pulse Resp B/P (MAP) Pulse Ox O2 Delivery O2 Flow Rate FiO2 08/31/24 10:13 96 16 103/61 08/31/24 07:00 100 08/31/24 06:00 Room Air* 0 21 08/31/24 04:00 97.8 97.8 Total Intake and Output 08/30/24 08/30/24 08/31/24 15:00 23:00 07:00 Intake Total 720.155 ml 1362.655 ml 958.5426 ml Output Total 1400 ml 100 ml Balance 720.155 ml -37.345 ml 858.5426 ml medications Current Medications Medications Dose Ordered Sig/Akiko Route Start Time Stop Time Status Last Admin Dose Admin Vancomycin HCl 200 ml @ 200 mls/hr Q12HR IV 08/10/24 22:00 UNV Pantoprazole Sodium 40 mg DAILY IV 08/11/24 10:00 08/30/24 10:12 40 MG Lactated Ringer's 1,000 ml @ 50 mls/hr Q20H IV 08/19/24 08:00 08/30/24 11:52 50 MLS/HR Enteral Nutritional Formula 240 ml TIDWM PO 08/20/24 18:00 08/30/24 18:07 240 ML Dextrose 50 ml UD PRN IV 08/21/24 09:30 Diagnostic Test (Pha) 1 strip Q6HR 08/21/24 12:00 Cancel Insulin Human Regular FOLLOW SLIDING SCALE Q6HR SC 08/21/24 12:00 Cancel Dextrose 50 ml UD IV 08/21/24 10:00 Cancel Thiamine HCl 100 mg DAILY IV 08/23/24 10:00 08/30/24 10:12 100 MG Melatonin 3 mg HS PO 08/22/24 22:00 08/30/24 21:50 3 MG Midodrine 10 mg TID@0600,1200,1800 PO 08/23/24 12:00 08/30/24 18:01 10 MG Carbidopa/Levodopa 1 tab TID PO 08/25/24 09:45 08/30/24 21:50 1 TAB Diagnostic Test (Pha) 1 strip ACHS 08/25/24 11:30 08/31/24 07:27 1 STRIP Insulin Human Regular ACHS SC 08/25/24 11:30 08/31/24 07:30 2 UNITS Acetaminophen 650 mg Q6HPRN PRN PO 08/25/24 16:00 08/30/24 10:13 650 MG Enteral Nutritional Formula 28.8 gm TID PO 08/26/24 14:00 08/30/24 22:00 28.8 GM Linezolid 300 ml @ 150 mls/hr Q12HR IV 08/26/24 22:00 08/30/24 21:50 150 MLS/HR Fludrocortisone Acetate 0.1 mg DAILY PO 08/29/24 10:00 08/30/24 10:12 0.1 MG Norepinephrine Bitartrate 16 mg/ Sodium Chloride 250 ml @ 0.938 mls/ hr Q24H IV 08/29/24 19:30 Acetaminophen/ Hydrocodone Bitart 1 tab Q4HPRN PRN PO 08/30/24 11:30 08/31/24 01:45 1 TAB Lactulose 30 ml BIDPRN PRN PO 08/30/24 11:30 Meropenem 50 ml @ 17 mls/hr Q8HR IV 08/31/24 14:00 Morphine Sulfate 1 mg Q4HP PRN IV 08/31/24 08:30 08/31/24 08:58 1 MG objective General: the patient is well developed and nourished. No acute distress. MENTAL STATUS: Awake, oriented to person place SPEECH, LANGUAGE, HIGHER CORTICAL FUNCTION: no aphasia or dysathria. CRANIAL NERVES: Pupils are equal, round and reactive. EOMs full and conjugate. No nystagmus. Facial sensation intact in all three divisions bilaterally. Mandibular strength intact. Facial muscles symmetrical and strength intact. SENSATION: Sensation to touch and pinprick is Ok MOTOR: Normal muscle bulk. No fasciculations. He moves the arms REFLEXES: Deep tendon reflexes normal and symmetrical. No pathological reflexes. CEREBELLAR/COORDINATION: Deferred GAIT/STATION: deferred laboratory and microbiology Laboratory Tests 08/31/24 03:20 Test 08/31/24 03:20 Range/Units Serum Glucose 114 H 74-106 mg/dL Problem List Altered mental status/metabolic encephalopathy secondary to Sepsis Septic shock Respiratory failure Urinary tract infection Dehydration Acute kidney failure Hypernatremia Rhabdomyolysis Hand tremors, gait disturbance, low voice Parkinson's disease Rule out essential tremor Pressure sores Assessment/Plan Monitoring Supportive treatment ICU care Respiratory support p.r.n. Stabilize vitals Oxygen IV antiepileptics Hydration Sinemet 25/100, t.i.d. Midodrine Current pain management Okay to use Tylenol for pain control Wound care DVT prophylaxis GI prophylaxis Pulmonary on case Nephrology on case Surgery on case More recommendation per clinical course This medical document was created using an electronic medical record system with [employer] dictation system. Although this document has been carefully reviewed, there may still be some phonetic and typographical errors. These areas are purely typographical due to imperfections of the software programs, and do not reflect any compromise in the patient's medical care Prognosis poor Dietary Evaluation Review Comments: 1. If on Vent Consider Nepro 30ml/hr x 24 hr,( 58g pro 1274 kcal). this will support pt's needs at 100% protein, 94 % kcal. 2. If EN not possible, and NPO > 7 days, consider TPN per pharmacy. 3. If off Vent, and pass speech eval, offer Renal Specific -50g protein 2g Na 3 K Low phos, 4. If off vent on hemo dialysis, pass speech eval, offer Renal Standard 2 gNa 3 K, Low Phos diet. Expected Outcomes/Goals: advance to diet able to eat independently. Plan discussed with: Other EVELINE HUNTER MD Aug 31, 2024 10:48
[2024-08-31] MEDS: BUPIVACAINE 0.25% INJ 50ML VIAL ONE (12:50)
[2024-08-31] MEDS: LIDOCAINE W/ EPINEPHRINE 1% 20ML VIAL ONE (12:50)
[2024-08-31] MEDS ORDERED: fentaNYL CITRATE 100 MCG/2 ML VL ONE (13:00)
[2024-08-31] MEDS ORDERED: PROPOFOL 10 MG/ML 20 ML IV ONE (13:00)
[2024-08-31] MEDS: LIDOCAINE HCL (LOCAL ANESTH.) 0.5 % 50ML MDV IJ ONE (13:35)
[2024-08-31] MEDS ORDERED: ePHEDrine SULFATE 50 MG/ML AMP ONE (13:46)
[2024-08-31] MEDS: MEROPENEM 1GM IVPB 50 ML IV SCH (14:00)
--- NOTE | 2024-08-31 22:13 | DVHPN2 ---
Progress Note - Dictate Date Seen: Aug 31, 2024 Medical Necessity Reason Pt with a Central, PICC or Fol: Yes The following are medically ne: Powell Catheter Reason for powell catheter: Strict I&O Subjective Patient seen and examined at bedside. Breathing on room air. Overnight events reviewed. vital signs Vital Sign Date Time Temp Pulse Resp B/P (MAP) Pulse Ox O2 Delivery O2 Flow Rate FiO2 08/31/24 18:00 94 16 93/56 (68) 100 08/31/24 18:00 Room Air* 0 21 08/31/24 16:00 98.7 98.7 Total Intake and Output 08/30/24 08/30/24 08/31/24 15:00 23:00 07:00 Intake Total 720.155 ml 1362.655 ml 1009.0116 ml Output Total 1400 ml 100 ml Balance 720.155 ml -37.345 ml 909.0116 ml medications Current Medications Medications Dose Ordered Sig/Akiko Route Start Time Stop Time Status Last Admin Dose Admin Vancomycin HCl 200 ml @ 200 mls/hr Q12HR IV 08/10/24 22:00 UNV Pantoprazole Sodium 40 mg DAILY IV 08/11/24 10:00 08/31/24 10:52 40 MG Lactated Ringer's 1,000 ml @ 50 mls/hr Q20H IV 08/19/24 08:00 08/30/24 11:52 50 MLS/HR Enteral Nutritional Formula 240 ml TIDWM PO 08/20/24 18:00 08/31/24 18:00 240 ML Dextrose 50 ml UD PRN IV 08/21/24 09:30 Diagnostic Test (Pha) 1 strip Q6HR 08/21/24 12:00 Cancel Insulin Human Regular FOLLOW SLIDING SCALE Q6HR SC 08/21/24 12:00 Cancel Dextrose 50 ml UD IV 08/21/24 10:00 Cancel Thiamine HCl 100 mg DAILY IV 08/23/24 10:00 08/31/24 10:51 100 MG Melatonin 3 mg HS PO 08/22/24 22:00 08/30/24 21:50 3 MG Midodrine 10 mg TID@0600,1200,1800 PO 08/23/24 12:00 08/31/24 18:00 10 MG Carbidopa/Levodopa 1 tab TID PO 08/25/24 09:45 08/31/24 14:00 1 TAB Diagnostic Test (Pha) 1 strip ACHS 08/25/24 11:30 08/31/24 17:00 1 STRIP Insulin Human Regular ACHS SC 08/25/24 11:30 08/31/24 07:30 2 UNITS Acetaminophen 650 mg Q6HPRN PRN PO 08/25/24 16:00 08/30/24 10:13 650 MG Enteral Nutritional Formula 28.8 gm TID PO 08/26/24 14:00 08/30/24 22:00 28.8 GM Linezolid 300 ml @ 150 mls/hr Q12HR IV 08/26/24 22:00 08/31/24 10:52 150 MLS/HR Fludrocortisone Acetate 0.1 mg DAILY PO 08/29/24 10:00 08/30/24 10:12 0.1 MG Norepinephrine Bitartrate 16 mg/ Sodium Chloride 250 ml @ 0.938 mls/ hr Q24H IV 08/29/24 19:30 Acetaminophen/ Hydrocodone Bitart 1 tab Q4HPRN PRN PO 08/30/24 11:30 08/31/24 01:45 1 TAB Lactulose 30 ml BIDPRN PRN PO 08/30/24 11:30 Meropenem 50 ml @ 17 mls/hr Q8HR IV 08/31/24 14:00 08/31/24 14:00 17 MLS/HR Morphine Sulfate 1 mg Q4HP PRN IV 08/31/24 08:30 08/31/24 08:58 1 MG objective Gen.: Patient lying in bed in no apparent distress. Breathing on room air. Head: Normocephalic, atraumatic. Eyes: EOMI/PERRLA. Ears: Normal hearing. Normal anatomy. Neck/trachea: Trachea midline, supple. Nose: Normal external anatomy. Mouth: Moist mucous membranes. Chest: Decreased air entry bilaterally. No wheezing or rhonchi. Cardiovascular: Positive S1, positive S2. Regular rate and rhythm. Abdomen: Positive bowel sounds in all 4 quadrants. Soft, non-tender, non- distended. : Deferred. Rectal: Deferred. Skin: Warm, dry. Intact. Extremities: 2+ radial pulses bilaterally. No lower extremity edema. Neuro: Awake, alert, oriented x3. No gross motor or sensory deficits. Cranial nerves II through XII intact. Gait not assessed. laboratory and microbiology Laboratory Tests 08/31/24 03:20 Test 08/31/24 03:20 Range/Units Serum Glucose 114 H 74-106 mg/dL Assessment/Plan Impression: Acute hypoxic respiratory failure Leukocytosis Hypernatremia Parkinson's disease Acute metabolic encephalopathy Decubitus ulcers Sepsis Rhabdomyolysis Acute kidney injury Events: Remains on room air. No respiratory distress. Off Levophed, hemodynamically stable. S/p debridement by Surgery Surgery recommendations appreciated Wound care Continue midodrine 10 mg TID Continue antibiotics IV fluids with LR 50 ml/hr. Incentive spirometry Monitor hemoglobin Accu-Cheks for glycemic monitoring Brain MRI done 08/19/24 showed no evidence of acute intracranial abnormality. Labs and imaging reviewed. Rest of plan as noted below. Plan: S/p extubation 08/15/24 Breathing on room air. Supplemental O2 PRN. CT head: No acute intracranial hemorrhage or stroke. Pressors if necessary for hemodynamic support. Titrate to keep MAP above 65 mmHg/SBP above 90 mmHg. Antibiotics. Monitor hemoglobin Head of bed elevation Aspiration precautions Monitor renal function due to Acute kidney injury. Monitor electrolytes. Supplement as necessary. Monitor sodium due to hypernatremia IV fluid hydration Do not over correct sodium. Sodium 136 (08/29/24) Nutritional support. Accu-Cheks, ISS. GI prophylaxis - Protonix DVT prophylaxis. Condition: Critical Prognosis: Poor given multiple comorbidities. Rest of plan per hospitalist and other consultants. A total of 35 minutes of critical care time was spent reviewing the patient record, examining the patient, making a diagnostic and therapeutic plan, discussing this plan with the medical personnel, following up on diagnostic studies and following the patient for clinical stability excluding any and all procedures. At least 50% of this time was spent in direct, [id number] contact. Thank you Dr. Newman for allowing me to participate in this patient's care. Further recommendations will depend on patient's clinical course. Please do not hesitate to contact me if you have any questions or concerns. This medical document was created using an electronic medical record system with [employer] system. Although this document has been carefully reviewed, there may still be some phonetic and typographical errors. These areas are purely typographical due to imperfections of the software programs, and do not reflect any compromise in the patient's medical care. Dietary Evaluation Review Comments: 1. If on Vent Consider Nepro 30ml/hr x 24 hr,( 58g pro 1274 kcal). this will support pt's needs at 100% protein, 94 % kcal. 2. If EN not possible, and NPO > 7 days, consider TPN per pharmacy. 3. If off Vent, and pass speech eval, offer Renal Specific -50g protein 2g Na 3 K Low phos, 4. If off vent on hemo dialysis, pass speech eval, offer Renal Standard 2 gNa 3 K, Low Phos diet. Expected Outcomes/Goals: advance to diet able to eat independently. Plan discussed with: Other (RN Ty) Critical Care Time(min): 35 REY REAGAN MD Aug 31, 2024 22:13
--- NOTE | 2024-08-31 23:12 | DVHOP2 ---
Operative Report LEFT LOW BACK AND UPPER BACK NON HEALING WOUND WITH TISSUE NECROSIS WOUND DEBRIDEMENT ABOVE USING SHARP AND CAUTERY DISSECTION USING LIDOCAINE DRAINAGE OF LEFT LOWER WOUND ABSCESS C/S SENT EBL CC NO DRAINS NO COMPLICATIONS IAM GRIER MD Aug 31, 2024 23:12
[2024-09-01] VITALS (20 sets, daily range): BP systolic 97–127; BP diastolic 52–69; PULSE 79–96; RESP 13–21; TEMP 98.3–98.8; O2SAT 97–100
[2024-09-01 10:09] LABS: Chloride 104 mmol/L (98-107); Potassium 3.8 mmol/L (3.5-5.1); Sodium 136 mmol/L (136-145)
[2024-09-01 10:10] LABS: Anion Gap 4 (5-15); Carbon Dioxide 28 mmol/L (20-31)
[2024-09-01 10:15] LABS: BUN/Creatinine Ratio 13.9 (10.0-20.0); Blood Urea Nitrogen 11 mg/dL (9-23); Glucose 106 mg/dL (74-106)
[2024-09-01 10:20] LABS: Calcium 8.6 mg/dL (8.7-10.4)
--- NOTE | 2024-09-01 10:56 | DVHPN2 ---
Progress Note - Dictate Date Seen: Sep 01, 2024 Medical Necessity Reason Pt with a Central, PICC or Fol: Yes The following are medically ne: Powell Catheter Reason for powell catheter: Strict I&O Subjective Mr. Howard is a 78 years old right-handed gentleman with a history of Parkinson's disease, the patient was admitted on 08/10 24 with a chief company of altered mental status I have seen in the ICU and examined the patient, I have discussed with his nurse, he looks tired, awake, oriented to person, place, he knows year and the month, but he may in the able to answer my questions properly She reports pain in the right leg Respiratory culture, 08/12/2024: Klebsiella pneumoniae Blood culture, 08/10/24: Negative UDS, 08/10/2024: Negative Urinalysis, 08/10/2024: WBC 10, urine leukocyte: Trace WBC/HB/PLT/MCV, 08/20/24: 6.5/10.5/205/88.8 PT/INR/PTT, 08/14/2024: 13.9/1.34/30.9 Na, 08/10/2024: 170, 168, 08/11/2024: 165, 08/12/2024: 164, 08/13/2024: 161, 08/14/2024: 156, 08/19/2024: 149, 08/20/24: 149, 08/23/2023: 142 BUN/CR, 08/18/2024: 45/1.01, 08/20/2024: 42/1.07 CPK, 08/10/2024: 2513, 08/11/2024: 2525, 08/12/2024: 2844, 08/13/2024: 4268, 08/21/2024: 510 TBI/AST/ALT/AP, 08/20/2024: 1.4/148/210/179, 08/23/2024: 08/23/2024: 0.9/61/104/180 Ammonia, 08/23/2024: < 10 Hepatitis panel, 08/11/2024: Negative TSH, 08/11/2024: 4.48 Venous Doppler, lower extremities, 08/13/2024: No left DVT. Positive DVT involving the right lower extremity common femoral vein, femoral vein, popliteal vein and calf Chest x-ray, 08/10/2024: No acute cardiopulmonary disease. Elevation of the left hemidiaphragm. Enteric tube and endotracheal tube are in satisfactory position Chest x-ray, 08/21/2024: Increased congestion CT head, 08/10/2024: 1. No acute intracranial hemorrhage, midline shift or mass effect. 2. Generalized brain atrophy. 3. Small vessel ischemic/degenerative changes. 4. If symptoms persists, further evaluation with MRI is recommended MRI head, 08/19/2024: 1. No evidence of acute intracranial abnormality. 2. Motion limited study vital signs Vital Sign Date Time Temp Pulse Resp B/P (MAP) Pulse Ox O2 Delivery O2 Flow Rate FiO2 09/01/24 09:00 80 16 108/61 (77) 100 09/01/24 08:00 98.4 98.4 09/01/24 08:00 Room Air* 0 21 Total Intake and Output 08/31/24 08/31/24 09/01/24 15:00 23:00 07:00 Intake Total 400 ml 967 ml 601 ml Output Total 900 ml 2100 ml 1000 ml Balance -500 ml -1133 ml -399 ml medications Current Medications Medications Dose Ordered Sig/Akiko Route Start Time Stop Time Status Last Admin Dose Admin Vancomycin HCl 200 ml @ 200 mls/hr Q12HR IV 08/10/24 22:00 UNV Pantoprazole Sodium 40 mg DAILY IV 08/11/24 10:00 09/01/24 09:11 40 MG Lactated Ringer's 1,000 ml @ 50 mls/hr Q20H IV 08/19/24 08:00 08/31/24 22:16 50 MLS/HR Enteral Nutritional Formula 240 ml TIDWM PO 08/20/24 18:00 09/01/24 08:00 240 ML Dextrose 50 ml UD PRN IV 08/21/24 09:30 Diagnostic Test (Pha) 1 strip Q6HR 08/21/24 12:00 Cancel Insulin Human Regular FOLLOW SLIDING SCALE Q6HR SC 08/21/24 12:00 Cancel Dextrose 50 ml UD IV 08/21/24 10:00 Cancel Thiamine HCl 100 mg DAILY IV 08/23/24 10:00 09/01/24 09:11 100 MG Melatonin 3 mg HS PO 08/22/24 22:00 08/31/24 22:15 3 MG Midodrine 10 mg TID@0600,1200,1800 PO 08/23/24 12:00 09/01/24 06:14 10 MG Carbidopa/Levodopa 1 tab TID PO 08/25/24 09:45 09/01/24 06:14 1 TAB Diagnostic Test (Pha) 1 strip ACHS 08/25/24 11:30 09/01/24 06:15 1 STRIP Insulin Human Regular ACHS SC 08/25/24 11:30 08/31/24 07:30 2 UNITS Acetaminophen 650 mg Q6HPRN PRN PO 08/25/24 16:00 08/30/24 10:13 650 MG Enteral Nutritional Formula 28.8 gm TID PO 08/26/24 14:00 09/01/24 06:15 28.8 GM Linezolid 300 ml @ 150 mls/hr Q12HR IV 08/26/24 22:00 09/01/24 09:12 150 MLS/HR Fludrocortisone Acetate 0.1 mg DAILY PO 08/29/24 10:00 09/01/24 09:11 0.1 MG Norepinephrine Bitartrate 16 mg/ Sodium Chloride 250 ml @ 0.938 mls/ hr Q24H IV 08/29/24 19:30 Acetaminophen/ Hydrocodone Bitart 1 tab Q4HPRN PRN PO 08/30/24 11:30 08/31/24 01:45 1 TAB Lactulose 30 ml BIDPRN PRN PO 08/30/24 11:30 Meropenem 50 ml @ 17 mls/hr Q8HR IV 08/31/24 14:00 09/01/24 06:14 17 MLS/HR Morphine Sulfate 1 mg Q4HP PRN IV 08/31/24 08:30 09/01/24 02:35 1 MG objective General: the patient is well developed and nourished. No acute distress. MENTAL STATUS: Awake, oriented to person place SPEECH, LANGUAGE, HIGHER CORTICAL FUNCTION: no aphasia or dysathria. CRANIAL NERVES: Pupils are equal, round and reactive. EOMs full and conjugate. No nystagmus. Facial sensation intact in all three divisions bilaterally. Mandibular strength intact. Facial muscles symmetrical and strength intact. SENSATION: Sensation to touch and pinprick is Ok MOTOR: Normal muscle bulk. No fasciculations. He moves the arms REFLEXES: Deep tendon reflexes normal and symmetrical. No pathological reflexes. CEREBELLAR/COORDINATION: Deferred GAIT/STATION: deferred laboratory and microbiology Laboratory Tests 09/01/24 09:48 08/31/24 03:20 Test 09/01/24 09:48 Range/Units Serum Glucose 106 74-106 mg/dL Problem List Altered mental status/metabolic encephalopathy secondary to Sepsis Septic shock Respiratory failure Urinary tract infection Dehydration Acute kidney failure Hypernatremia Rhabdomyolysis Hand tremors, gait disturbance, low voice Parkinson's disease Rule out essential tremor Pressure sores DVT Assessment/Plan Monitoring Supportive treatment ICU care Respiratory support p.r.n. Stabilize vitals Oxygen IV antiepileptics Hydration Sinemet 25/100, t.i.d. Midodrine Current pain management Okay to use Tylenol for pain control Wound care DVT prophylaxis GI prophylaxis Pulmonary on case Nephrology on case Surgery on case More recommendation per clinical course This medical document was created using an electronic medical record system with [employer] dictation system. Although this document has been carefully reviewed, there may still be some phonetic and typographical errors. These areas are purely typographical due to imperfections of the software programs, and do not reflect any compromise in the patient's medical care Prognosis poor Dietary Evaluation Review Comments: 1. If on Vent Consider Nepro 30ml/hr x 24 hr,( 58g pro 1274 kcal). this will support pt's needs at 100% protein, 94 % kcal. 2. If EN not possible, and NPO > 7 days, consider TPN per pharmacy. 3. If off Vent, and pass speech eval, offer Renal Specific -50g protein 2g Na 3 K Low phos, 4. If off vent on hemo dialysis, pass speech eval, offer Renal Standard 2 gNa 3 K, Low Phos diet. Expected Outcomes/Goals: advance to diet able to eat independently. Plan discussed with: Other EVELINE HUNTER MD Sep 01, 2024 10:56
--- NOTE | 2024-09-01 12:34 | DVHPN2 ---
Subjective On low dose Levophed Confused c/o pain "everywhere Reviewed: Care Plan, H&P, Labs, Medications, Previous Orders, Radiology, Other (Consultants) Changes from previous H/P or p: Changes General: Per HPI Objective Vitals Vital Signs Date Time Temp Pulse Resp B/P (MAP) Pulse Ox O2 Delivery O2 Flow Rate FiO2 09/01/24 09:00 80 16 108/61 (77) 100 09/01/24 08:00 98.4 98.4 09/01/24 08:00 Room Air* 0 21 Intake/Output Intake and Output 09/01/24 07:00 Intake Total 1968 ml Output Total 4000 ml Balance -2032 ml Intake Oral 400 ml IV Total 1568 ml Output Urine Total 4000 ml General Appearance: Alert, Oriented X3, Cooperative, No acute distress HEENT: Atraumatic, PERRLA Lungs: Clear to auscultation, Normal air movement Cardiovascular: Regular rate, Normal S1, Normal S2 Abdomen: Normal bowel sounds, Soft, No tenderness Musculoskeletal: Weak motor strength RUE, Weak motor strength LUE, Weak motor strength RLE, Weak motor strength LLE Extremities: Other Skin: Wounds Psych/Mental Status: Other Medications Current Medications Medications Dose Ordered Sig/Akiko Route Start Time Stop Time Status Last Admin Dose Admin Vancomycin HCl 200 ml @ 200 mls/hr Q12HR IV 08/10/24 22:00 UNV Pantoprazole Sodium 40 mg DAILY IV 08/11/24 10:00 09/01/24 09:11 40 MG Lactated Ringer's 1,000 ml @ 50 mls/hr Q20H IV 08/19/24 08:00 08/31/24 22:16 50 MLS/HR Enteral Nutritional Formula 240 ml TIDWM PO 08/20/24 18:00 09/01/24 08:00 240 ML Dextrose 50 ml UD PRN IV 08/21/24 09:30 Diagnostic Test (Pha) 1 strip Q6HR 08/21/24 12:00 Cancel Insulin Human Regular FOLLOW SLIDING SCALE Q6HR SC 08/21/24 12:00 Cancel Dextrose 50 ml UD IV 08/21/24 10:00 Cancel Thiamine HCl 100 mg DAILY IV 08/23/24 10:00 09/01/24 09:11 100 MG Melatonin 3 mg HS PO 08/22/24 22:00 08/31/24 22:15 3 MG Midodrine 10 mg TID@0600,1200,1800 PO 08/23/24 12:00 09/01/24 06:14 10 MG Carbidopa/Levodopa 1 tab TID PO 08/25/24 09:45 09/01/24 06:14 1 TAB Diagnostic Test (Pha) 1 strip ACHS 08/25/24 11:30 09/01/24 06:15 1 STRIP Insulin Human Regular ACHS SC 08/25/24 11:30 08/31/24 07:30 2 UNITS Acetaminophen 650 mg Q6HPRN PRN PO 08/25/24 16:00 08/30/24 10:13 650 MG Enteral Nutritional Formula 28.8 gm TID PO 08/26/24 14:00 09/01/24 06:15 28.8 GM Linezolid 300 ml @ 150 mls/hr Q12HR IV 08/26/24 22:00 09/01/24 09:12 150 MLS/HR Fludrocortisone Acetate 0.1 mg DAILY PO 08/29/24 10:00 09/01/24 09:11 0.1 MG Norepinephrine Bitartrate 16 mg/ Sodium Chloride 250 ml @ 0.938 mls/ hr Q24H IV 08/29/24 19:30 Acetaminophen/ Hydrocodone Bitart 1 tab Q4HPRN PRN PO 08/30/24 11:30 08/31/24 01:45 1 TAB Lactulose 30 ml BIDPRN PRN PO 08/30/24 11:30 Meropenem 50 ml @ 17 mls/hr Q8HR IV 08/31/24 14:00 09/01/24 06:14 17 MLS/HR Morphine Sulfate 1 mg Q4HP PRN IV 08/31/24 08:30 09/01/24 02:35 1 MG Laboratory Results Laboratory Tests 08/31/24 03:20 09/01/24 09:48 Chemistry Test 09/01/24 09:48 Calcium Level 8.6 mg/dL (8.7-10.4) L Urinalysis Test 08/11/24 13:02 Urine Color Yellow (Yellow) Urine Clarity Turbid (Clear) H Urine pH 5.5 (5.0-9.0) Urine Specific [place] 1.018 (1.001-1.035) Urine Protein 1+ (Negative) H Urine Ketones Negative (Negative) Urine Blood 3+ /uL (Negative) H Urine Nitrite Negative (Negative) Urine Bilirubin Negative (Negative) Urine Urobilinogen 4 mg/dL (Negative) H Urine Leukocyte Esterase 1+ /uL (Negative) Urine RBC 13 /hpf (0 - 3) Urine WBC 14 /hpf (0 - 3) Urine Squamous Epithelial Cells Few /hpf (<5) Urine Bacteria Few /hpf (None Seen) H Urine Hyaline Casts Few /lpf (0 - 2) Urine Granular Casts Few /lpf (0) Urine Mucus Few (None Seen) Urine Creatinine 67.44 mg/dL (30.0-125.0) Urine Protein/Creatinine Ratio 1.00 Urine Sodium 32 mmol/L (40-220) L Urine Glucose Normal mg/dL (Normal) Urine Total Protein 67.3 mg/dL (1-14) H Microbiology Microbiology Date/Time Source Procedure Growth Status 08/26/24 15:45 Penis Gram Stain - Final Complete 08/26/24 15:45 Wound Culture - Final Pseudo fluorescence/putida Enterococcus faecium - VRE Presumptive Ema albicans Complete 08/22/24 15:28 Back Lumbar Gram Stain - Final Complete 08/22/24 15:28 Wound Culture - Final Enterococcus faecium - VRE Complete 08/12/24 19:02 Bronchial Washings Gram Stain - Final Resulted 08/12/24 19:02 Respiratory Culture - Preliminary Klebsiella pneumoniae Presumptive Ema albicans Resulted 08/10/24 14:08 Blood Blood Culture - Final NO GROWTH AFTER 5 DAYS OF INCUBATION. Complete Assessment/Plan Assessment/Plan Sepsis with septic shock Metabolic encephalopathy, Wound infection of left buttock and back Parkinson's disease R leg DVT Hypernatremia: resolved DAYLIN: Better Respiratory failure: Better PLAN: 08/31/24: IV antibiotics: Zyvox, add Meropenem, consult ID Levouriel German to do I$D for wound IV fluids: LR Sinemet Nutritional supplements Midodrine Florinef Small dose morphine for pain NPO for possible surgery today Plan discussed with: Patient, Daughter My Orders Orders - JELENA GAINES MD Procedure Category Date Status Time Pureed DIET 08/31/24 Transmitted Dinner Date of Service: Sep 01, 2024 Billing Provider: JELENA GAINES MD Common Visit Codes: NOT BILLABLE JELENA GAINES MD Sep 01, 2024 12:34
--- NOTE | 2024-09-01 12:39 | DVHPN2 ---
Subjective Better Off Levophed More alert Reviewed: Care Plan, H&P, Labs, Medications, Previous Orders, Radiology, Other (Consultants) Changes from previous H/P or p: Changes General: Per HPI Objective Vitals Vital Signs Date Time Temp Pulse Resp B/P (MAP) Pulse Ox O2 Delivery O2 Flow Rate FiO2 09/01/24 09:00 80 16 108/61 (77) 100 09/01/24 08:00 98.4 98.4 09/01/24 08:00 Room Air* 0 21 Intake/Output Intake and Output 09/01/24 07:00 Intake Total 1968 ml Output Total 4000 ml Balance -2032 ml Intake Oral 400 ml IV Total 1568 ml Output Urine Total 4000 ml General Appearance: Alert, Oriented X3, Cooperative, No acute distress HEENT: Atraumatic, PERRLA Lungs: Clear to auscultation, Normal air movement Cardiovascular: Regular rate, Normal S1, Normal S2 Abdomen: Normal bowel sounds, Soft, No tenderness Musculoskeletal: Weak motor strength RUE, Weak motor strength LUE, Weak motor strength RLE, Weak motor strength LLE Extremities: Other Skin: Wounds Psych/Mental Status: Other Medications Current Medications Medications Dose Ordered Sig/Akiko Route Start Time Stop Time Status Last Admin Dose Admin Vancomycin HCl 200 ml @ 200 mls/hr Q12HR IV 08/10/24 22:00 UNV Pantoprazole Sodium 40 mg DAILY IV 08/11/24 10:00 09/01/24 09:11 40 MG Lactated Ringer's 1,000 ml @ 50 mls/hr Q20H IV 08/19/24 08:00 08/31/24 22:16 50 MLS/HR Enteral Nutritional Formula 240 ml TIDWM PO 08/20/24 18:00 09/01/24 08:00 240 ML Dextrose 50 ml UD PRN IV 08/21/24 09:30 Diagnostic Test (Pha) 1 strip Q6HR 08/21/24 12:00 Cancel Insulin Human Regular FOLLOW SLIDING SCALE Q6HR SC 08/21/24 12:00 Cancel Dextrose 50 ml UD IV 08/21/24 10:00 Cancel Thiamine HCl 100 mg DAILY IV 08/23/24 10:00 09/01/24 09:11 100 MG Melatonin 3 mg HS PO 08/22/24 22:00 08/31/24 22:15 3 MG Midodrine 10 mg TID@0600,1200,1800 PO 08/23/24 12:00 09/01/24 06:14 10 MG Carbidopa/Levodopa 1 tab TID PO 08/25/24 09:45 09/01/24 06:14 1 TAB Diagnostic Test (Pha) 1 strip ACHS 08/25/24 11:30 09/01/24 06:15 1 STRIP Insulin Human Regular ACHS SC 08/25/24 11:30 08/31/24 07:30 2 UNITS Acetaminophen 650 mg Q6HPRN PRN PO 08/25/24 16:00 08/30/24 10:13 650 MG Enteral Nutritional Formula 28.8 gm TID PO 08/26/24 14:00 09/01/24 06:15 28.8 GM Linezolid 300 ml @ 150 mls/hr Q12HR IV 08/26/24 22:00 09/01/24 09:12 150 MLS/HR Fludrocortisone Acetate 0.1 mg DAILY PO 08/29/24 10:00 09/01/24 09:11 0.1 MG Acetaminophen/ Hydrocodone Bitart 1 tab Q4HPRN PRN PO 08/30/24 11:30 08/31/24 01:45 1 TAB Lactulose 30 ml BIDPRN PRN PO 08/30/24 11:30 Meropenem 50 ml @ 17 mls/hr Q8HR IV 08/31/24 14:00 09/01/24 06:14 17 MLS/HR Morphine Sulfate 1 mg Q4HP PRN IV 08/31/24 08:30 09/01/24 02:35 1 MG Laboratory Results Laboratory Tests 08/31/24 03:20 09/01/24 09:48 Chemistry Test 09/01/24 09:48 Calcium Level 8.6 mg/dL (8.7-10.4) L Urinalysis Test 08/11/24 13:02 Urine Color Yellow (Yellow) Urine Clarity Turbid (Clear) H Urine pH 5.5 (5.0-9.0) Urine Specific [place] 1.018 (1.001-1.035) Urine Protein 1+ (Negative) H Urine Ketones Negative (Negative) Urine Blood 3+ /uL (Negative) H Urine Nitrite Negative (Negative) Urine Bilirubin Negative (Negative) Urine Urobilinogen 4 mg/dL (Negative) H Urine Leukocyte Esterase 1+ /uL (Negative) Urine RBC 13 /hpf (0 - 3) Urine WBC 14 /hpf (0 - 3) Urine Squamous Epithelial Cells Few /hpf (<5) Urine Bacteria Few /hpf (None Seen) H Urine Hyaline Casts Few /lpf (0 - 2) Urine Granular Casts Few /lpf (0) Urine Mucus Few (None Seen) Urine Creatinine 67.44 mg/dL (30.0-125.0) Urine Protein/Creatinine Ratio 1.00 Urine Sodium 32 mmol/L (40-220) L Urine Glucose Normal mg/dL (Normal) Urine Total Protein 67.3 mg/dL (1-14) H Microbiology Microbiology Date/Time Source Procedure Growth Status 08/26/24 15:45 Penis Gram Stain - Final Complete 08/26/24 15:45 Wound Culture - Final Pseudo fluorescence/putida Enterococcus faecium - VRE Presumptive Ema albicans Complete 08/22/24 15:28 Back Lumbar Gram Stain - Final Complete 08/22/24 15:28 Wound Culture - Final Enterococcus faecium - VRE Complete 08/12/24 19:02 Bronchial Washings Gram Stain - Final Resulted 08/12/24 19:02 Respiratory Culture - Preliminary Klebsiella pneumoniae Presumptive Ema albicans Resulted 08/10/24 14:08 Blood Blood Culture - Final NO GROWTH AFTER 5 DAYS OF INCUBATION. Complete Assessment/Plan Assessment/Plan Sepsis with septic shock Metabolic encephalopathy, Wound infection of left buttock and back Parkinson's disease R leg DVT Hypernatremia: resolved DAYLIN: Better Respiratory failure: Better PLAN: 08/31/24: IV antibiotics: Zyvox, add Meropenem, consult ID Levophed kiera German to do I$D for wound IV fluids: LR Sinemet Nutritional supplements Midodrine Florinef Small dose morphine for pain NPO for possible surgery today 09/01/24: Downgrade to Tele Physical therapy Wound care LR Zyvox Meropenem Sinemet Midodrine Florinef Vitamins Plan discussed with: Patient, Other My Orders Orders - JELENA GAINES MD Procedure Category Date Status Time Pureed DIET 08/31/24 Transmitted Dinner Date of Service: Sep 01, 2024 Billing Provider: JELENA GAINES MD Common Visit Codes: NOT BILLABLE JELENA GAINES MD Sep 01, 2024 12:39
--- NOTE | 2024-09-01 20:28 | DVHPN2 ---
Progress Note - Dictate Date Seen: Sep 01, 2024 Medical Necessity Reason Pt with a Central, PICC or Fol: Yes The following are medically ne: Powell Catheter Reason for powell catheter: Strict I&O Subjective Patient seen and examined at bedside. Breathing on room air. Overnight events reviewed. vital signs Vital Sign Date Time Temp Pulse Resp B/P (MAP) Pulse Ox O2 Delivery O2 Flow Rate FiO2 09/01/24 18:00 19 99 Room Air* 0 21 09/01/24 17:00 98.8 89 127/64 (85) 98.8 Total Intake and Output 08/31/24 08/31/24 09/01/24 15:00 23:00 07:00 Intake Total 400 ml 967 ml 601 ml Output Total 900 ml 2100 ml 1000 ml Balance -500 ml -1133 ml -399 ml medications Current Medications Medications Dose Ordered Sig/Akiko Route Start Time Stop Time Status Last Admin Dose Admin Vancomycin HCl 200 ml @ 200 mls/hr Q12HR IV 08/10/24 22:00 UNV Lactated Ringer's 1,000 ml @ 50 mls/hr Q20H IV 08/19/24 08:00 09/01/24 18:10 50 MLS/HR Enteral Nutritional Formula 240 ml TIDWM PO 08/20/24 18:00 09/01/24 18:39 240 ML Dextrose 50 ml UD PRN IV 08/21/24 09:30 Diagnostic Test (Pha) 1 strip Q6HR 08/21/24 12:00 Cancel Insulin Human Regular FOLLOW SLIDING SCALE Q6HR SC 08/21/24 12:00 Cancel Dextrose 50 ml UD IV 08/21/24 10:00 Cancel Melatonin 3 mg HS PO 08/22/24 22:00 08/31/24 22:15 3 MG Midodrine 10 mg TID@0600,1200,1800 PO 08/23/24 12:00 09/01/24 18:10 10 MG Carbidopa/Levodopa 1 tab TID PO 08/25/24 09:45 09/01/24 13:41 1 TAB Diagnostic Test (Pha) 1 strip ACHS 08/25/24 11:30 09/01/24 17:00 1 STRIP Insulin Human Regular ACHS SC 08/25/24 11:30 08/31/24 07:30 2 UNITS Acetaminophen 650 mg Q6HPRN PRN PO 08/25/24 16:00 08/30/24 10:13 650 MG Enteral Nutritional Formula 28.8 gm TID PO 08/26/24 14:00 09/01/24 13:41 28.8 GM Linezolid 300 ml @ 150 mls/hr Q12HR IV 08/26/24 22:00 09/01/24 09:12 150 MLS/HR Fludrocortisone Acetate 0.1 mg DAILY PO 08/29/24 10:00 09/01/24 09:11 0.1 MG Acetaminophen/ Hydrocodone Bitart 1 tab Q4HPRN PRN PO 08/30/24 11:30 08/31/24 01:45 1 TAB Lactulose 30 ml BIDPRN PRN PO 08/30/24 11:30 Meropenem 50 ml @ 17 mls/hr Q8HR IV 08/31/24 14:00 09/01/24 13:41 17 MLS/HR Morphine Sulfate 1 mg Q4HP PRN IV 08/31/24 08:30 09/01/24 02:35 1 MG Pantoprazole Sodium 40 mg DAILY@0600 PO 09/02/24 06:00 Thiamine HCl 100 mg DAILY PO 09/02/24 10:00 Folic Acid 1 mg DAILY PO 09/02/24 10:00 Multivitamins 1 tab DAILY PO 09/02/24 10:00 objective Gen.: Patient lying in bed in no apparent distress. Breathing on room air. Head: Normocephalic, atraumatic. Eyes: EOMI/PERRLA. Ears: Normal hearing. Normal anatomy. Neck/trachea: Trachea midline, supple. Nose: Normal external anatomy. Mouth: Moist mucous membranes. Chest: Decreased air entry bilaterally. No wheezing or rhonchi. Cardiovascular: Positive S1, positive S2. Regular rate and rhythm. Abdomen: Positive bowel sounds in all 4 quadrants. Soft, non-tender, non- distended. : Deferred. Rectal: Deferred. Skin: Warm, dry. Intact. Extremities: 2+ radial pulses bilaterally. No lower extremity edema. Neuro: Awake, alert, oriented x3. No gross motor or sensory deficits. Cranial nerves II through XII intact. Gait not assessed. laboratory and microbiology Laboratory Tests 09/01/24 09:48 08/31/24 03:20 Test 09/01/24 09:48 Range/Units Serum Glucose 106 74-106 mg/dL Assessment/Plan Impression: Acute hypoxic respiratory failure Leukocytosis Hypernatremia Parkinson's disease Acute metabolic encephalopathy Decubitus ulcers Sepsis Rhabdomyolysis Acute kidney injury Events: Remains on room air. No respiratory distress. Surgery recommendations appreciated Continue wound care Continue midodrine 10 mg TID Continue antibiotics IV fluids with LR 50 ml/hr. Incentive spirometry Monitor hemoglobin Accu-Cheks for glycemic monitoring Patient is stable for downgrade from the pulmonary standpoint. Brain MRI done 08/19/24 showed no evidence of acute intracranial abnormality. Labs and imaging reviewed. Rest of plan as noted below. Plan: S/p extubation 08/15/24 Breathing on room air. Supplemental O2 PRN. CT head: No acute intracranial hemorrhage or stroke. Pressors if necessary for hemodynamic support Titrate to keep MAP above 65 mmHg/SBP above 90 mmHg. Antibiotics. Monitor hemoglobin Head of bed elevation Aspiration precautions Monitor renal function due to Acute kidney injury. Monitor electrolytes. Supplement as necessary. Monitor sodium due to hypernatremia IV fluid hydration Do not over correct sodium. Sodium 136 (08/29/24) Nutritional support. Accu-Cheks, ISS. GI prophylaxis - Protonix DVT prophylaxis. Prognosis: Guarded given multiple comorbidities. Rest of plan per hospitalist and other consultants. Thank you Dr. Newman for allowing me to participate in this patient's care. Further recommendations will depend on patient's clinical course. Please do not hesitate to contact me if you have any questions or concerns. This medical document was created using an electronic medical record system with [employer] dictation system. Although this document has been carefully reviewed, there may still be some phonetic and typographical errors. These areas are purely typographical due to imperfections of the software programs, and do not reflect any compromise in the patient's medical care. Dietary Evaluation Review Comments: 1. If on Vent Consider Nepro 30ml/hr x 24 hr,( 58g pro 1274 kcal). this will support pt's needs at 100% protein, 94 % kcal. 2. If EN not possible, and NPO > 7 days, consider TPN per pharmacy. 3. If off Vent, and pass speech eval, offer Renal Specific -50g protein 2g Na 3 K Low phos, 4. If off vent on hemo dialysis, pass speech eval, offer Renal Standard 2 gNa 3 K, Low Phos diet. Expected Outcomes/Goals: advance to diet able to eat independently. Plan discussed with: Patient, Other (RN Pia) REY REAGAN MD Sep 01, 2024 20:28
[2024-09-02] VITALS (7 sets, daily range): BP systolic 88–117; BP diastolic 46–56; PULSE 76–98; RESP 14–20; TEMP 97.8–98.8; O2SAT 97–100
[2024-09-02] MEDS: PANTOPRAZOLE 40 MG TAB PO SCH (05:46)
[2024-09-02] MEDS: THIAMINE HCL 100 MG TAB PO SCH (10:04)
[2024-09-02] MEDS: FOLIC ACID 1 MG TAB PO SCH (10:04)
[2024-09-02] MEDS: MULTIPLE VITAMIN TAB PO SCH (10:04)
[2024-09-02] MEDS: APIXABAN 5 MG TAB PO SCH (21:37)
--- NOTE | 2024-09-02 23:17 | DVHPN2 ---
Progress Note - Dictate Date Seen: Sep 02, 2024 Medical Necessity Reason Pt with a Central, PICC or Fol: Yes The following are medically ne: Powell Catheter Reason for powell catheter: Strict I&O Subjective Patient seen and examined at bedside. Breathing on room air. Overnight events reviewed. vital signs Vital Sign Date Time Temp Pulse Resp B/P (MAP) Pulse Ox O2 Delivery O2 Flow Rate FiO2 09/02/24 21:55 98.8 82 19 110/56 (74) 98 98.8 09/02/24 08:00 Room Air* 0 21 Total Intake and Output 09/01/24 09/01/24 09/02/24 15:00 23:00 07:00 Intake Total 100 ml 100 ml Output Total 225 ml 1030 ml Balance -125 ml -930 ml medications Current Medications Medications Dose Ordered Sig/Akiko Route Start Time Stop Time Status Last Admin Dose Admin Vancomycin HCl 200 ml @ 200 mls/hr Q12HR IV 08/10/24 22:00 UNV Lactated Ringer's 1,000 ml @ 50 mls/hr Q20H IV 08/19/24 08:00 09/02/24 14:38 50 MLS/HR Enteral Nutritional Formula 240 ml TIDWM PO 08/20/24 18:00 09/02/24 17:42 240 ML Dextrose 50 ml UD PRN IV 08/21/24 09:30 Diagnostic Test (Pha) 1 strip Q6HR 08/21/24 12:00 Cancel Insulin Human Regular FOLLOW SLIDING SCALE Q6HR SC 08/21/24 12:00 Cancel Dextrose 50 ml UD IV 08/21/24 10:00 Cancel Melatonin 3 mg HS PO 08/22/24 22:00 09/02/24 21:37 3 MG Midodrine 10 mg TID@0600,1200,1800 PO 08/23/24 12:00 09/02/24 17:42 10 MG Carbidopa/Levodopa 1 tab TID PO 08/25/24 09:45 09/02/24 21:37 1 TAB Diagnostic Test (Pha) 1 strip ACHS 08/25/24 11:30 09/02/24 21:38 1 STRIP Insulin Human Regular ACHS SC 08/25/24 11:30 08/31/24 07:30 2 UNITS Acetaminophen 650 mg Q6HPRN PRN PO 08/25/24 16:00 1/14/25 10:13 650 MG Enteral Nutritional Formula 28.8 gm TID PO 08/26/24 14:00 09/02/24 21:51 28.8 GM Linezolid 300 ml @ 150 mls/hr Q12HR IV 08/26/24 22:00 09/02/24 21:37 150 MLS/HR Fludrocortisone Acetate 0.1 mg DAILY PO 08/29/24 10:00 09/02/24 10:04 0.1 MG Acetaminophen/ Hydrocodone Bitart 1 tab Q4HPRN PRN PO 08/30/24 11:30 09/02/24 15:48 1 TAB Lactulose 30 ml BIDPRN PRN PO 08/30/24 11:30 Meropenem 50 ml @ 17 mls/hr Q8HR IV 08/31/24 14:00 09/02/24 21:37 17 MLS/HR Morphine Sulfate 1 mg Q4HP PRN IV 08/31/24 08:30 09/01/24 02:35 1 MG Pantoprazole Sodium 40 mg DAILY@0600 PO 09/02/24 06:00 09/02/24 05:46 40 MG Thiamine HCl 100 mg DAILY PO 09/02/24 10:00 09/02/24 10:04 100 MG Folic Acid 1 mg DAILY PO 09/02/24 10:00 09/02/24 10:04 1 MG Multivitamins 1 tab DAILY PO 09/02/24 10:00 09/02/24 10:04 1 TAB Apixaban 5 mg BID PO 09/02/24 22:00 09/02/24 21:37 5 MG objective Gen.: Patient lying in bed in no apparent distress. Breathing on room air. Head: Normocephalic, atraumatic. Eyes: EOMI/PERRLA. Ears: Normal hearing. Normal anatomy. Neck/trachea: Trachea midline, supple. Nose: Normal external anatomy. Mouth: Moist mucous membranes. Chest: Decreased air entry bilaterally. No wheezing or rhonchi. Cardiovascular: Positive S1, positive S2. Regular rate and rhythm. Abdomen: Positive bowel sounds in all 4 quadrants. Soft, non-tender, non- distended. : Deferred. Rectal: Deferred. Skin: Warm, dry. Intact. Extremities: 2+ radial pulses bilaterally. No lower extremity edema. Neuro: Awake, alert, oriented x3. No gross motor or sensory deficits. Cranial nerves II through XII intact. Gait not assessed. laboratory and microbiology Laboratory Tests 09/01/24 09:48 08/31/24 03:20 Test 09/01/24 09:48 Range/Units Serum Glucose 106 74-106 mg/dL Assessment/Plan Impression: Acute hypoxic respiratory failure Leukocytosis Hypernatremia Parkinson's disease Acute metabolic encephalopathy Decubitus ulcers Sepsis Rhabdomyolysis Acute kidney injury Events: Remains on room air. No respiratory distress. Continue wound care Continue midodrine 10 mg TID Continue antibiotics IV fluids with LR 50 ml/hr. Incentive spirometry Monitor hemoglobin Accu-Cheks for glycemic monitoring Nutritional support Brain MRI done 08/19/24 showed no evidence of acute intracranial abnormality. Labs and imaging reviewed. Rest of plan as noted below. Plan: S/p extubation 08/15/24 Breathing on room air. Supplemental O2 PRN. CT head: No acute intracranial hemorrhage or stroke. Pressors if necessary for hemodynamic support Titrate to keep MAP above 65 mmHg/SBP above 90 mmHg. Antibiotics. Monitor hemoglobin Head of bed elevation Aspiration precautions Monitor renal function due to Acute kidney injury. Monitor electrolytes. Supplement as necessary. Monitor sodium due to hypernatremia IV fluid hydration Do not over correct sodium. Sodium 136 (08/29/24) Nutritional support. Accu-Cheks, ISS. GI prophylaxis - Protonix DVT prophylaxis. Prognosis: Guarded given multiple comorbidities. Rest of plan per hospitalist and other consultants. Thank you Dr. Newman for allowing me to participate in this patient's care. Further recommendations will depend on patient's clinical course. Please do not hesitate to contact me if you have any questions or concerns. This medical document was created using an electronic medical record system with [employer] dictation system. Although this document has been carefully reviewed, there may still be some phonetic and typographical errors. These areas are purely typographical due to imperfections of the software programs, and do not reflect any compromise in the patient's medical care. Dietary Evaluation Review Comments: 1. If on Vent Consider Nepro 30ml/hr x 24 hr,( 58g pro 1274 kcal). this will support pt's needs at 100% protein, 94 % kcal. 2. If EN not possible, and NPO > 7 days, consider TPN per pharmacy. 3. If off Vent, and pass speech eval, offer Renal Specific -50g protein 2g Na 3 K Low phos, 4. If off vent on hemo dialysis, pass speech eval, offer Renal Standard 2 gNa 3 K, Low Phos diet. Expected Outcomes/Goals: advance to diet able to eat independently. Plan discussed with: Patient, Other (SRAVANI Tolliver) REY REAGAN MD Sep 02, 2024 23:17
[2024-09-03] VITALS (8 sets, daily range): BP systolic 99–135; BP diastolic 45–71; PULSE 80–104; RESP 17–21; TEMP 97.9–98.8; O2SAT 90–100
--- NOTE | 2024-09-03 09:05 | DVHPN2 ---
Subjective Better More alert Reviewed: Care Plan, H&P, Labs, Medications, Previous Orders, Radiology, Other (Consultants) Changes from previous H/P or p: Changes General: Per HPI Objective Vitals Vital Signs Date Time Temp Pulse Resp B/P (MAP) Pulse Ox O2 Delivery O2 Flow Rate FiO2 09/03/24 05:00 98.8 84 20 135/71 (92) 99 98.8 09/02/24 20:00 Room Air* 0 21 Intake/Output Intake and Output 09/03/24 07:00 Intake Total 1304 ml Output Total 2225 ml Balance -921 ml Intake Oral 354 ml IV Total 950 ml Output Urine Total 2225 ml General Appearance: Alert, Oriented X3, Cooperative, No acute distress HEENT: Atraumatic, PERRLA Lungs: Clear to auscultation, Normal air movement Cardiovascular: Regular rate, Normal S1, Normal S2 Abdomen: Normal bowel sounds, Soft, No tenderness Musculoskeletal: Weak motor strength RUE, Weak motor strength LUE, Weak motor strength RLE, Weak motor strength LLE Extremities: Other Skin: Wounds Psych/Mental Status: Other Medications Current Medications Medications Dose Ordered Sig/Akiko Route Start Time Stop Time Status Last Admin Dose Admin Vancomycin HCl 200 ml @ 200 mls/hr Q12HR IV 08/10/24 22:00 UNV Lactated Ringer's 1,000 ml @ 50 mls/hr Q20H IV 08/19/24 08:00 09/02/24 14:38 50 MLS/HR Enteral Nutritional Formula 240 ml TIDWM PO 08/20/24 18:00 09/02/24 17:42 240 ML Dextrose 50 ml UD PRN IV 08/21/24 09:30 Diagnostic Test (Pha) 1 strip Q6HR 08/21/24 12:00 Cancel Insulin Human Regular FOLLOW SLIDING SCALE Q6HR SC 08/21/24 12:00 Cancel Dextrose 50 ml UD IV 08/21/24 10:00 Cancel Melatonin 3 mg HS PO 08/22/24 22:00 09/02/24 21:37 3 MG Midodrine 10 mg TID@0600,1200,1800 PO 08/23/24 12:00 09/03/24 05:25 10 MG Carbidopa/Levodopa 1 tab TID PO 08/25/24 09:45 09/03/24 05:25 1 TAB Diagnostic Test (Pha) 1 strip ACHS 08/25/24 11:30 09/03/24 05:27 1 STRIP Insulin Human Regular ACHS SC 08/25/24 11:30 08/31/24 07:30 2 UNITS Acetaminophen 650 mg Q6HPRN PRN PO 08/25/24 16:00 08/30/24 10:13 650 MG Enteral Nutritional Formula 28.8 gm TID PO 08/26/24 14:00 09/03/24 05:27 28.8 GM Linezolid 300 ml @ 150 mls/hr Q12HR IV 08/26/24 22:00 09/02/24 21:37 150 MLS/HR Fludrocortisone Acetate 0.1 mg DAILY PO 08/29/24 10:00 09/02/24 10:04 0.1 MG Acetaminophen/ Hydrocodone Bitart 1 tab Q4HPRN PRN PO 08/30/24 11:30 09/03/24 05:50 1 TAB Lactulose 30 ml BIDPRN PRN PO 08/30/24 11:30 Meropenem 50 ml @ 17 mls/hr Q8HR IV 08/31/24 14:00 09/03/24 05:25 17 MLS/HR Morphine Sulfate 1 mg Q4HP PRN IV 08/31/24 08:30 09/01/24 02:35 1 MG Pantoprazole Sodium 40 mg DAILY@0600 PO 09/02/24 06:00 09/03/24 05:25 40 MG Thiamine HCl 100 mg DAILY PO 09/02/24 10:00 09/02/24 10:04 100 MG Folic Acid 1 mg DAILY PO 09/02/24 10:00 09/02/24 10:04 1 MG Multivitamins 1 tab DAILY PO 09/02/24 10:00 09/02/24 10:04 1 TAB Apixaban 5 mg BID PO 09/02/24 22:00 09/02/24 21:37 5 MG Laboratory Results Laboratory Tests 08/31/24 03:20 09/01/24 09:48 Urinalysis Test 08/11/24 13:02 Urine Color Yellow (Yellow) Urine Clarity Turbid (Clear) H Urine pH 5.5 (5.0-9.0) Urine Specific [place] 1.018 (1.001-1.035) Urine Protein 1+ (Negative) H Urine Ketones Negative (Negative) Urine Blood 3+ /uL (Negative) H Urine Nitrite Negative (Negative) Urine Bilirubin Negative (Negative) Urine Urobilinogen 4 mg/dL (Negative) H Urine Leukocyte Esterase 1+ /uL (Negative) Urine RBC 13 /hpf (0 - 3) Urine WBC 14 /hpf (0 - 3) Urine Squamous Epithelial Cells Few /hpf (<5) Urine Bacteria Few /hpf (None Seen) H Urine Hyaline Casts Few /lpf (0 - 2) Urine Granular Casts Few /lpf (0) Urine Mucus Few (None Seen) Urine Creatinine 67.44 mg/dL (30.0-125.0) Urine Protein/Creatinine Ratio 1.00 Urine Sodium 32 mmol/L (40-220) L Urine Glucose Normal mg/dL (Normal) Urine Total Protein 67.3 mg/dL (1-14) H Microbiology Microbiology Date/Time Source Procedure Growth Status 08/31/24 09:35 Urine - [place] Urine Culture - Final Complete 08/26/24 15:45 Penis Gram Stain - Final Complete 08/26/24 15:45 Wound Culture - Final Pseudo fluorescence/putida Enterococcus faecium - VRE Presumptive Ema albicans Complete 08/22/24 15:28 Back Lumbar Gram Stain - Final Complete 08/22/24 15:28 Wound Culture - Final Enterococcus faecium - VRE Complete 08/12/24 19:02 Bronchial Washings Gram Stain - Final Resulted 08/12/24 19:02 Respiratory Culture - Preliminary Klebsiella pneumoniae Presumptive Ema albicans Resulted 08/10/24 14:08 Blood Blood Culture - Final NO GROWTH AFTER 5 DAYS OF INCUBATION. Complete Assessment/Plan Assessment/Plan Sepsis with septic shock Metabolic encephalopathy, Wound infection of left buttock and back Parkinson's disease R leg DVT Hypernatremia: resolved DAYLIN: Better Respiratory failure: Better PLAN: 08/31/24: IV antibiotics: Zyvox, add Meropenem, consult ID Mickey German to do I$D for wound IV fluids: LR Sinemet Nutritional supplements Midodrine Florinef Small dose morphine for pain NPO for possible surgery today 09/01/24: Downgrade to Tele Physical therapy Wound care LR Zyvox Meropenem Sinemet Midodrine Florinef Vitamins 09/03/24: Physical therapy Wound care Zyvox Out of bed as tolerated Plan discussed with: Patient My Orders Orders - JELENA GAINES MD Procedure Category Date Status Time Apixaban (Eliquis) PHA 09/02/24 In Process 22:00 * Swallow Request ST 09/02/24 Transmitted 12:47 * [employer] Trimmer CONS 09/02/24 Transmitted Consult Complete Blood Count LAB 09/03/24 Logged 04:00 Comprehensive LAB 09/03/24 Logged Metabolic Panel 04:00 Magnesium LAB 09/03/24 Logged 04:00 Date of Service: Sep 03, 2024 Billing Provider: JELENA GAINES MD Common Visit Codes: NOT BILLABLE JELENA GAINES MD Sep 03, 2024 09:05
[2024-09-03 09:29] LABS: Basophils # (auto) 0.1 10 ^3/uL (0-0.2); Basophils % (auto) 0.9 % (0.0-2.0); Eosinophils # (auto) 0.1 10 ^3/uL (0-0.8); Eosinophils % (auto) 1.9 % (0.0-7.0); Hematocrit 28.4 % (41.0-53.0); Hemoglobin 9.6 g/dL (13.5-17.5); Lymphocytes # (auto) 1.4 10 ^3/uL (0.4-5.4); Lymphocytes % (auto) 24.5 % (10.0-50.0); Mean Corpuscular Hemoglobin 29.8 pg (28.0-32.0); Mean Corpuscular Hgb Conc. 33.9 g/dL (32.0-36.0); Mean Corpuscular Volume 87.8 fL (80.0-100.0); Monocytes # (auto) 0.4 10 ^3/uL (0-1.3); Monocytes % (auto) 6.8 % (0.0-12.0); Neutrophils # (auto) 3.8 10 ^3/uL (1.6-8.6); Neutrophils % (auto) 65.9 % (37.0-80.0); Nucleated Red Blood Cells % 0.1 %; Platelet Count (auto) 231 10^3/uL (140-450); Red Blood Cells 3.24 10^6/uL (4.5-5.90); Red Cell Distribution Width 13.3 % (11.8-14.3); White Blood Cell 5.8 10^3/uL (4.4-10.8)
[2024-09-03 09:49] LABS: Alanine Aminotransferase 24 U/L (7-40); Anion Gap 5 (5-15); Aspartate Aminotransferase 31 U/L (13-40); BUN/Creatinine Ratio 29.6 (10.0-20.0); Bilirubin, Total 0.5 mg/dL (0.2-1.0); Blood Urea Nitrogen 21 mg/dL (9-23); Calcium 8.9 mg/dL (8.7-10.4); Carbon Dioxide 28 mmol/L (20-31); Chloride 103 mmol/L (98-107); Magnesium 1.6 mg/dL (1.6-2.6); Potassium 3.8 mmol/L (3.5-5.1); Sodium 136 mmol/L (136-145)
[2024-09-03 09:50] LABS: Total Protein 6.1 g/dL (5.7-8.2)
[2024-09-03 10:31] LABS: Albumin 3.2 g/dL (3.2-4.8); Alkaline Phosphatase 204 U/L (46-116); Glucose 106 mg/dL (74-106)
--- NOTE | 2024-09-03 17:13 | DVHPN2 ---
Progress Note Date Seen: Sep 03, 2024 Medical Necessity Reason Pt with a Central, PICC or Fol: Yes The following are medically ne: Powell Catheter Reason for powell catheter: Strict I&O Objective vital signs Vital Sign Date Time Temp Pulse Resp B/P (MAP) Pulse Ox O2 Delivery O2 Flow Rate FiO2 09/03/24 13:00 98.2 89 20 99/51 (67) 97 98.2 09/03/24 08:00 Room Air* 0 21 Total Intake and Output 09/02/24 09/02/24 09/03/24 15:00 23:00 07:00 Intake Total 350 ml 600 ml 354 ml Output Total 1175 ml 1050 ml Balance 350 ml -575 ml -696 ml medications Current Medications Medications Dose Ordered Sig/Akiko Route Start Time Stop Time Status Last Admin Dose Admin Vancomycin HCl 200 ml @ 200 mls/hr Q12HR IV 08/10/24 22:00 UNV Lactated Ringer's 1,000 ml @ 50 mls/hr Q20H IV 08/19/24 08:00 09/02/24 14:38 50 MLS/HR Enteral Nutritional Formula 240 ml TIDWM PO 08/20/24 18:00 09/03/24 12:44 240 ML Dextrose 50 ml UD PRN IV 08/21/24 09:30 Diagnostic Test (Pha) 1 strip Q6HR 08/21/24 12:00 Cancel Insulin Human Regular FOLLOW SLIDING SCALE Q6HR SC 08/21/24 12:00 Cancel Dextrose 50 ml UD IV 08/21/24 10:00 Cancel Melatonin 3 mg HS PO 08/22/24 22:00 09/02/24 21:37 3 MG Midodrine 10 mg TID@0600,1200,1800 PO 08/23/24 12:00 09/03/24 12:43 10 MG Carbidopa/Levodopa 1 tab TID PO 08/25/24 09:45 09/03/24 15:55 1 TAB Diagnostic Test (Pha) 1 strip ACHS 08/25/24 11:30 09/03/24 12:44 1 STRIP Insulin Human Regular ACHS SC 08/25/24 11:30 09/03/24 12:45 2 UNITS Acetaminophen 650 mg Q6HPRN PRN PO 08/25/24 16:00 08/30/24 10:13 650 MG Enteral Nutritional Formula 28.8 gm TID PO 08/26/24 14:00 09/03/24 15:55 28.8 GM Linezolid 300 ml @ 150 mls/hr Q12HR IV 08/26/24 22:00 09/03/24 11:19 150 MLS/HR Fludrocortisone Acetate 0.1 mg DAILY PO 08/29/24 10:00 09/03/24 11:20 0.1 MG Acetaminophen/ Hydrocodone Bitart 1 tab Q4HPRN PRN PO 08/30/24 11:30 09/03/24 05:50 1 TAB Lactulose 30 ml BIDPRN PRN PO 08/30/24 11:30 Meropenem 50 ml @ 17 mls/hr Q8HR IV 08/31/24 14:00 09/03/24 15:55 17 MLS/HR Morphine Sulfate 1 mg Q4HP PRN IV 08/31/24 08:30 09/01/24 02:35 1 MG Pantoprazole Sodium 40 mg DAILY@0600 PO 09/02/24 06:00 09/03/24 05:25 40 MG Thiamine HCl 100 mg DAILY PO 09/02/24 10:00 09/03/24 11:20 100 MG Folic Acid 1 mg DAILY PO 09/02/24 10:00 09/03/24 11:20 1 MG Multivitamins 1 tab DAILY PO 09/02/24 10:00 09/03/24 11:19 1 TAB Apixaban 5 mg BID PO 09/02/24 22:00 09/03/24 11:20 5 MG laboratory and microbiology Laboratory Tests 09/03/24 09:15 Test 09/03/24 09:15 Range/Units Serum Glucose 106 74-106 mg/dL Microbiology Date/Time Source Procedure Growth Status 08/31/24 09:35 Urine - [place] Urine Culture - Final Complete 08/26/24 15:45 Penis Gram Stain - Final Complete 08/26/24 15:45 Wound Culture - Final Pseudo fluorescence/putida Enterococcus faecium - VRE Presumptive Ema albicans Complete 08/22/24 15:28 Back Lumbar Gram Stain - Final Complete 08/22/24 15:28 Wound Culture - Final Enterococcus faecium - VRE Complete 08/12/24 19:02 Bronchial Washings Gram Stain - Final Resulted 08/12/24 19:02 Respiratory Culture - Preliminary Klebsiella pneumoniae Presumptive Ema albicans Resulted 08/10/24 14:08 Blood Blood Culture - Final NO GROWTH AFTER 5 DAYS OF INCUBATION. Complete Problem List/Assessment/Plan Problem List/Assessment/Plan AFEBRILE VSS BACK AND LEFT GLUTEAL WOUNDS HEALING DRESSING IN PLACE NO COMPLICATIONS CONTINUE SUPPORTIVE CARE NURSE AT BEDSIDE Plan discussed with: Patient Dietary Evaluation Review Comments: 1. If on Vent Consider Nepro 30ml/hr x 24 hr,( 58g pro 1274 kcal). this will support pt's needs at 100% protein, 94 % kcal. 2. If EN not possible, and NPO > 7 days, consider TPN per pharmacy. 3. If off Vent, and pass speech eval, offer Renal Specific -50g protein 2g Na 3 K Low phos, 4. If off vent on hemo dialysis, pass speech eval, offer Renal Standard 2 gNa 3 K, Low Phos diet. Expected Outcomes/Goals: advance to diet able to eat independently. IAM GRIER MD Sep 03, 2024 17:13
[2024-09-03] MEDS ORDERED: LINEZOLID 600MG/300ML 300 ML IV ONE (22:00)
--- NOTE | 2024-09-03 22:16 | DVHPN2 ---
Progress Note - Dictate Date Seen: Sep 03, 2024 Medical Necessity Reason Pt with a Central, PICC or Fol: Yes The following are medically ne: Powell Catheter Reason for powell catheter: Strict I&O Subjective Patient seen and examined at bedside. Breathing on room air. Overnight events reviewed. vital signs Vital Sign Date Time Temp Pulse Resp B/P (MAP) Pulse Ox O2 Delivery O2 Flow Rate FiO2 09/03/24 21:00 98.6 104 20 122/46 (71) 100 98.6 09/03/24 08:00 Room Air* 0 21 Total Intake and Output 09/02/24 09/02/24 09/03/24 15:00 23:00 07:00 Intake Total 350 ml 600 ml 354 ml Output Total 1175 ml 1050 ml Balance 350 ml -575 ml -696 ml medications Current Medications Medications Dose Ordered Sig/Akiko Route Start Time Stop Time Status Last Admin Dose Admin Vancomycin HCl 200 ml @ 200 mls/hr Q12HR IV 08/10/24 22:00 UNV Lactated Ringer's 1,000 ml @ 50 mls/hr Q20H IV 08/19/24 08:00 09/03/24 21:42 50 MLS/HR Enteral Nutritional Formula 240 ml TIDWM PO 08/20/24 18:00 09/03/24 18:43 240 ML Dextrose 50 ml UD PRN IV 08/21/24 09:30 Diagnostic Test (Pha) 1 strip Q6HR 08/21/24 12:00 Cancel Insulin Human Regular FOLLOW SLIDING SCALE Q6HR SC 08/21/24 12:00 Cancel Dextrose 50 ml UD IV 08/21/24 10:00 Cancel Melatonin 3 mg HS PO 08/22/24 22:00 09/03/24 21:40 3 MG Midodrine 10 mg TID@0600,1200,1800 PO 08/23/24 12:00 09/03/24 18:42 10 MG Carbidopa/Levodopa 1 tab TID PO 08/25/24 09:45 09/03/24 21:40 1 TAB Diagnostic Test (Pha) 1 strip ACHS 08/25/24 11:30 09/03/24 21:42 1 STRIP Insulin Human Regular ACHS SC 08/25/24 11:30 09/03/24 12:45 2 UNITS Acetaminophen 650 mg Q6HPRN PRN PO 08/25/24 16:00 08/30/24 10:13 650 MG Enteral Nutritional Formula 28.8 gm TID PO 08/26/24 14:00 09/03/24 21:41 28.8 GM Linezolid 300 ml @ 150 mls/hr Q12HR IV 08/26/24 22:00 09/03/24 21:40 150 MLS/HR Fludrocortisone Acetate 0.1 mg DAILY PO 08/29/24 10:00 09/03/24 11:20 0.1 MG Acetaminophen/ Hydrocodone Bitart 1 tab Q4HPRN PRN PO 08/30/24 11:30 09/03/24 05:50 1 TAB Lactulose 30 ml BIDPRN PRN PO 08/30/24 11:30 Morphine Sulfate 1 mg Q4HP PRN IV 08/31/24 08:30 09/01/24 02:35 1 MG Pantoprazole Sodium 40 mg DAILY@0600 PO 09/02/24 06:00 09/03/24 05:25 40 MG Thiamine HCl 100 mg DAILY PO 09/02/24 10:00 09/03/24 11:20 100 MG Folic Acid 1 mg DAILY PO 09/02/24 10:00 09/03/24 11:20 1 MG Multivitamins 1 tab DAILY PO 09/02/24 10:00 09/03/24 11:19 1 TAB Apixaban 5 mg BID PO 09/02/24 22:00 09/03/24 21:41 5 MG Meropenem 50 ml @ 17 mls/hr Q8HR IV 09/04/24 00:00 objective Gen.: Patient lying in bed in no apparent distress. Breathing on room air. Head: Normocephalic, atraumatic. Eyes: EOMI/PERRLA. Ears: Normal hearing. Normal anatomy. Neck/trachea: Trachea midline, supple. Nose: Normal external anatomy. Mouth: Moist mucous membranes. Chest: Decreased air entry bilaterally. No wheezing or rhonchi. Cardiovascular: Positive S1, positive S2. Regular rate and rhythm. Abdomen: Positive bowel sounds in all 4 quadrants. Soft, non-tender, non- distended. : Deferred. Rectal: Deferred. Skin: Warm, dry. Intact. Extremities: 2+ radial pulses bilaterally. No lower extremity edema. Neuro: Awake, alert, oriented x3. No gross motor or sensory deficits. Cranial nerves II through XII intact. Gait not assessed. laboratory and microbiology Laboratory Tests 09/03/24 09:15 Test 09/03/24 09:15 Range/Units Serum Glucose 106 74-106 mg/dL Assessment/Plan Impression: Acute hypoxic respiratory failure Leukocytosis Hypernatremia Parkinson's disease Acute metabolic encephalopathy Decubitus ulcers Sepsis Rhabdomyolysis Acute kidney injury Events: Remains on room air. No respiratory distress. Continue wound care Head of bed elevation Aspiration precautions Continue midodrine 10 mg TID Continue antibiotics IV fluids with LR 50 ml/hr. Incentive spirometry Monitor hemoglobin Accu-Cheks for glycemic monitoring Nutritional support Monitor renal function Powell in place - monitor ins and outs Brain MRI done 08/19/24 showed no evidence of acute intracranial abnormality. Labs and imaging reviewed. Rest of plan as noted below. Plan: S/p extubation 08/15/24 Breathing on room air. Supplemental O2 PRN. CT head: No acute intracranial hemorrhage or stroke. Pressors if necessary for hemodynamic support Titrate to keep MAP above 65 mmHg/SBP above 90 mmHg. Antibiotics. Monitor hemoglobin Head of bed elevation Aspiration precautions Monitor renal function due to Acute kidney injury. Monitor electrolytes. Supplement as necessary. Monitor sodium due to hypernatremia IV fluid hydration Do not over correct sodium. Sodium 136 (08/29/24) Nutritional support. Accu-Cheks, ISS. GI prophylaxis - Protonix DVT prophylaxis. Prognosis: Guarded given multiple comorbidities. Rest of plan per hospitalist and other consultants. Thank you Dr. Newman for allowing me to participate in this patient's care. Further recommendations will depend on patient's clinical course. Please do not hesitate to contact me if you have any questions or concerns. This medical document was created using an electronic medical record system with [employer] dictation system. Although this document has been carefully reviewed, there may still be some phonetic and typographical errors. These areas are purely typographical due to imperfections of the software programs, and do not reflect any compromise in the patient's medical care. Dietary Evaluation Review Comments: 1. If on Vent Consider Nepro 30ml/hr x 24 hr,( 58g pro 1274 kcal). this will support pt's needs at 100% protein, 94 % kcal. 2. If EN not possible, and NPO > 7 days, consider TPN per pharmacy. 3. If off Vent, and pass speech eval, offer Renal Specific -50g protein 2g Na 3 K Low phos, 4. If off vent on hemo dialysis, pass speech eval, offer Renal Standard 2 gNa 3 K, Low Phos diet. Expected Outcomes/Goals: advance to diet able to eat independently. Plan discussed with: Patient, Other (SRAVANI Correa) REY REAGAN MD Sep 03, 2024 22:16
[2024-09-04] VITALS (8 sets, daily range): BP systolic 98–137; BP diastolic 44–97; PULSE 81–96; RESP 16–20; TEMP 97.8–98.7; O2SAT 84–100
[2024-09-04] MEDS: MEROPENEM 1GM IVPB 50 ML IV SCH (00:40)
--- NOTE | 2024-09-04 09:55 | DVHPN2 ---
Subjective Better More alert Reviewed: Care Plan, H&P, Labs, Medications, Previous Orders, Radiology, Other (Consultants) Changes from previous H/P or p: Changes General: Per HPI Objective Vitals Vital Signs Date Time Temp Pulse Resp B/P (MAP) Pulse Ox O2 Delivery O2 Flow Rate FiO2 09/04/24 08:21 97.9 87 18 125/44 (71) 98 97.9 09/03/24 20:00 Room Air* 0 21 Intake/Output Intake and Output 09/04/24 07:00 Intake Total 1680 ml Output Total 2350 ml Balance -670 ml Intake Oral 630 ml IV Total 1050 ml Output Urine Total 2350 ml General Appearance: Alert, Oriented X3, Cooperative, No acute distress HEENT: Atraumatic, PERRLA Lungs: Clear to auscultation, Normal air movement Cardiovascular: Regular rate, Normal S1, Normal S2 Abdomen: Normal bowel sounds, Soft, No tenderness Musculoskeletal: Weak motor strength RUE, Weak motor strength LUE, Weak motor strength RLE, Weak motor strength LLE Extremities: Other Skin: Wounds Psych/Mental Status: Other Medications Current Medications Medications Dose Ordered Sig/Akiko Route Start Time Stop Time Status Last Admin Dose Admin Vancomycin HCl 200 ml @ 200 mls/hr Q12HR IV 08/10/24 22:00 UNV Lactated Ringer's 1,000 ml @ 50 mls/hr Q20H IV 08/19/24 08:00 09/03/24 21:42 50 MLS/HR Enteral Nutritional Formula 240 ml TIDWM PO 08/20/24 18:00 09/04/24 09:20 240 ML Dextrose 50 ml UD PRN IV 08/21/24 09:30 Diagnostic Test (Pha) 1 strip Q6HR 08/21/24 12:00 Cancel Insulin Human Regular FOLLOW SLIDING SCALE Q6HR SC 08/21/24 12:00 Cancel Dextrose 50 ml UD IV 08/21/24 10:00 Cancel Melatonin 3 mg HS PO 08/22/24 22:00 09/03/24 21:40 3 MG Midodrine 10 mg TID@0600,1200,1800 PO 08/23/24 12:00 09/04/24 05:35 10 MG Carbidopa/Levodopa 1 tab TID PO 08/25/24 09:45 09/04/24 05:35 1 TAB Diagnostic Test (Pha) 1 strip ACHS 08/25/24 11:30 09/04/24 05:35 1 STRIP Insulin Human Regular ACHS SC 08/25/24 11:30 09/03/24 12:45 2 UNITS Acetaminophen 650 mg Q6HPRN PRN PO 08/25/24 16:00 08/30/24 10:13 650 MG Enteral Nutritional Formula 28.8 gm TID PO 08/26/24 14:00 09/04/24 05:36 28.8 GM Linezolid 300 ml @ 150 mls/hr Q12HR IV 08/26/24 22:00 09/04/24 09:17 150 MLS/HR Fludrocortisone Acetate 0.1 mg DAILY PO 08/29/24 10:00 09/04/24 09:37 0.1 MG Acetaminophen/ Hydrocodone Bitart 1 tab Q4HPRN PRN PO 08/30/24 11:30 09/04/24 01:01 1 TAB Lactulose 30 ml BIDPRN PRN PO 08/30/24 11:30 Morphine Sulfate 1 mg Q4HP PRN IV 08/31/24 08:30 09/01/24 02:35 1 MG Pantoprazole Sodium 40 mg DAILY@0600 PO 09/02/24 06:00 09/04/24 05:35 40 MG Thiamine HCl 100 mg DAILY PO 09/02/24 10:00 09/04/24 09:16 100 MG Folic Acid 1 mg DAILY PO 09/02/24 10:00 09/04/24 09:16 1 MG Multivitamins 1 tab DAILY PO 09/02/24 10:00 09/04/24 09:17 1 TAB Apixaban 5 mg BID PO 09/02/24 22:00 09/04/24 09:16 5 MG Meropenem 50 ml @ 17 mls/hr Q8HR IV 09/04/24 00:00 09/04/24 09:37 17 MLS/HR Laboratory Results Laboratory Tests 09/03/24 09:15 Urinalysis Test 08/11/24 13:02 Urine Color Yellow (Yellow) Urine Clarity Turbid (Clear) H Urine pH 5.5 (5.0-9.0) Urine Specific [place] 1.018 (1.001-1.035) Urine Protein 1+ (Negative) H Urine Ketones Negative (Negative) Urine Blood 3+ /uL (Negative) H Urine Nitrite Negative (Negative) Urine Bilirubin Negative (Negative) Urine Urobilinogen 4 mg/dL (Negative) H Urine Leukocyte Esterase 1+ /uL (Negative) Urine RBC 13 /hpf (0 - 3) Urine WBC 14 /hpf (0 - 3) Urine Squamous Epithelial Cells Few /hpf (<5) Urine Bacteria Few /hpf (None Seen) H Urine Hyaline Casts Few /lpf (0 - 2) Urine Granular Casts Few /lpf (0) Urine Mucus Few (None Seen) Urine Creatinine 67.44 mg/dL (30.0-125.0) Urine Protein/Creatinine Ratio 1.00 Urine Sodium 32 mmol/L (40-220) L Urine Glucose Normal mg/dL (Normal) Urine Total Protein 67.3 mg/dL (1-14) H Microbiology Microbiology Date/Time Source Procedure Growth Status 08/31/24 09:35 Urine - [place] Urine Culture - Final Complete 08/26/24 15:45 Penis Gram Stain - Final Complete 08/26/24 15:45 Wound Culture - Final Pseudo fluorescence/putida Enterococcus faecium - VRE Presumptive Ema albicans Complete 08/22/24 15:28 Back Lumbar Gram Stain - Final Complete 08/22/24 15:28 Wound Culture - Final Enterococcus faecium - VRE Complete 08/12/24 19:02 Bronchial Washings Gram Stain - Final Resulted 08/12/24 19:02 Respiratory Culture - Preliminary Klebsiella pneumoniae Presumptive Ema albicans Resulted 08/10/24 14:08 Blood Blood Culture - Final NO GROWTH AFTER 5 DAYS OF INCUBATION. Complete Assessment/Plan Assessment/Plan Sepsis with septic shock Metabolic encephalopathy, Wound infection of left buttock and back Parkinson's disease R leg DVT Hypernatremia: resolved DAYLIN: Better Respiratory failure: Better PLAN: 08/31/24: IV antibiotics: Zyvox, add Meropenem, consult ID Mickey German to do I$D for wound IV fluids: LR Sinemet Nutritional supplements Midodrine Florinef Small dose morphine for pain NPO for possible surgery today 09/01/24: Downgrade to Tele Physical therapy Wound care LR Zyvox Meropenem Sinemet Midodrine Florinef Vitamins 09/03/24: Physical therapy Wound care Zyvox Out of bed as tolerated 1/19/25: Continue PT Arrange SNF Plan discussed with: Patient, Daughter, Other My Orders Orders - JELENA GAINES MD Procedure Category Date Status Time Mechanical Soft Diet DIET 09/03/24 Transmitted Dinner Meropenem 1gm Ivpb PHA 09/04/24 In Process (Merrem 1gm/ Ns) 00:00 Date of Service: Sep 04, 2024 Billing Provider: JELENA GAINES MD Common Visit Codes: NOT BILLABLE JELENA GAINES MD Sep 04, 2024 09:55
--- NOTE | 2024-09-04 20:50 | DVHPN2 ---
Progress Note - Dictate Date Seen: Sep 04, 2024 Medical Necessity Reason Pt with a Central, PICC or Fol: Yes The following are medically ne: Powell Catheter Reason for powell catheter: Strict I&O Subjective Patient seen and examined at bedside. Breathing on room air. Overnight events reviewed. vital signs Vital Sign Date Time Temp Pulse Resp B/P (MAP) Pulse Ox O2 Delivery O2 Flow Rate FiO2 09/04/24 17:00 98.0 96 20 118/59 (78) 99 98.0 09/04/24 08:00 Room Air* 0 21 Total Intake and Output 09/03/24 09/03/24 09/04/24 15:00 23:00 07:00 Intake Total 350 ml 530 ml 800 ml Output Total 750 ml 1600 ml Balance 350 ml -220 ml -800 ml medications Current Medications Medications Dose Ordered Sig/Akiko Route Start Time Stop Time Status Last Admin Dose Admin Vancomycin HCl 200 ml @ 200 mls/hr Q12HR IV 08/10/24 22:00 UNV Lactated Ringer's 1,000 ml @ 50 mls/hr Q20H IV 08/19/24 08:00 09/03/24 21:42 50 MLS/HR Enteral Nutritional Formula 240 ml TIDWM PO 08/20/24 18:00 09/04/24 18:53 240 ML Dextrose 50 ml UD PRN IV 08/21/24 09:30 Diagnostic Test (Pha) 1 strip Q6HR 08/21/24 12:00 Cancel Insulin Human Regular FOLLOW SLIDING SCALE Q6HR SC 08/21/24 12:00 Cancel Dextrose 50 ml UD IV 08/21/24 10:00 Cancel Melatonin 3 mg HS PO 08/22/24 22:00 09/03/24 21:40 3 MG Midodrine 10 mg TID@0600,1200,1800 PO 08/23/24 12:00 09/04/24 18:53 10 MG Carbidopa/Levodopa 1 tab TID PO 08/25/24 09:45 09/04/24 05:35 1 TAB Diagnostic Test (Pha) 1 strip ACHS 08/25/24 11:30 09/04/24 17:44 1 STRIP Insulin Human Regular ACHS SC 08/25/24 11:30 09/03/24 12:45 2 UNITS Acetaminophen 650 mg Q6HPRN PRN PO 08/25/24 16:00 08/30/24 10:13 650 MG Enteral Nutritional Formula 28.8 gm TID PO 08/26/24 14:00 09/04/24 15:18 28.8 GM Linezolid 300 ml @ 150 mls/hr Q12HR IV 08/26/24 22:00 09/04/24 09:17 150 MLS/HR Fludrocortisone Acetate 0.1 mg DAILY PO 08/29/24 10:00 09/04/24 09:37 0.1 MG Acetaminophen/ Hydrocodone Bitart 1 tab Q4HPRN PRN PO 08/30/24 11:30 09/04/24 15:19 1 TAB Lactulose 30 ml BIDPRN PRN PO 08/30/24 11:30 Morphine Sulfate 1 mg Q4HP PRN IV 08/31/24 08:30 09/01/24 02:35 1 MG Pantoprazole Sodium 40 mg DAILY@0600 PO 09/02/24 06:00 09/04/24 05:35 40 MG Thiamine HCl 100 mg DAILY PO 09/02/24 10:00 09/04/24 09:16 100 MG Folic Acid 1 mg DAILY PO 09/02/24 10:00 09/04/24 09:16 1 MG Multivitamins 1 tab DAILY PO 09/02/24 10:00 09/04/24 09:17 1 TAB Apixaban 5 mg BID PO 09/02/24 22:00 09/04/24 09:16 5 MG Meropenem 50 ml @ 17 mls/hr Q8HR IV 09/04/24 00:00 09/04/24 15:19 17 MLS/HR objective Gen.: Patient lying in bed in no apparent distress. Breathing on room air. Head: Normocephalic, atraumatic. Eyes: EOMI/PERRLA. Ears: Normal hearing. Normal anatomy. Neck/trachea: Trachea midline, supple. Nose: Normal external anatomy. Mouth: Moist mucous membranes. Chest: Decreased air entry bilaterally. No wheezing or rhonchi. Cardiovascular: Positive S1, positive S2. Regular rate and rhythm. Abdomen: Positive bowel sounds in all 4 quadrants. Soft, non-tender, non- distended. : Deferred. Rectal: Deferred. Skin: Warm, dry. Intact. Extremities: 2+ radial pulses bilaterally. No lower extremity edema. Neuro: Awake, alert, oriented x3. No gross motor or sensory deficits. Cranial nerves II through XII intact. Gait not assessed. laboratory and microbiology Laboratory Tests 09/03/24 09:15 Test 09/03/24 09:15 Range/Units Serum Glucose 106 74-106 mg/dL Assessment/Plan Impression: Acute hypoxic respiratory failure Leukocytosis Hypernatremia Parkinson's disease Acute metabolic encephalopathy Decubitus ulcers Sepsis Rhabdomyolysis Acute kidney injury Events: Remains on room air. No respiratory distress. Continue wound care Head of bed elevation Aspiration precautions Continue midodrine 10 mg TID Continue antibiotics Incentive spirometry Monitor hemoglobin Accu-Cheks for glycemic monitoring Nutritional support Monitor renal function Powell in place - monitor ins and outs Disposition per hospitalist. Brain MRI done 08/19/24 showed no evidence of acute intracranial abnormality. Labs and imaging reviewed. Rest of plan as noted below. Plan: S/p extubation 08/15/24 Breathing on room air. Supplemental O2 PRN. CT head: No acute intracranial hemorrhage or stroke. Pressors if necessary for hemodynamic support Titrate to keep MAP above 65 mmHg/SBP above 90 mmHg. Antibiotics. Monitor hemoglobin Head of bed elevation Aspiration precautions Monitor renal function due to Acute kidney injury. Monitor electrolytes. Supplement as necessary. Monitor sodium due to hypernatremia IV fluid hydration Do not over correct sodium. Sodium 136 (08/29/24) Nutritional support. Accu-Cheks, ISS. GI prophylaxis - Protonix DVT prophylaxis. Prognosis: Guarded given multiple comorbidities. Rest of plan per hospitalist and other consultants. Thank you Dr. Newman for allowing me to participate in this patient's care. Further recommendations will depend on patient's clinical course. Please do not hesitate to contact me if you have any questions or concerns. This medical document was created using an electronic medical record system with Hang w/ dictation system. Although this document has been carefully reviewed, there may still be some phonetic and typographical errors. These areas are purely typographical due to imperfections of the software programs, and do not reflect any compromise in the patient's medical care. Dietary Evaluation Review Comments: 1. If on Vent Consider Nepro 30ml/hr x 24 hr,( 58g pro 1274 kcal). this will support pt's needs at 100% protein, 94 % kcal. 2. If EN not possible, and NPO > 7 days, consider TPN per pharmacy. 3. If off Vent, and pass speech eval, offer Renal Specific -50g protein 2g Na 3 K Low phos, 4. If off vent on hemo dialysis, pass speech eval, offer Renal Standard 2 gNa 3 K, Low Phos diet. Expected Outcomes/Goals: advance to diet able to eat independently. Plan discussed with: Patient, Other (SRAVANI Santillan) REY REAGAN MD Sep 04, 2024 20:50
[2024-09-05] VITALS (8 sets, daily range): BP systolic 103–119; BP diastolic 53–64; PULSE 79–95; RESP 17–20; TEMP 97.8–98.7; O2SAT 97–100
--- NOTE | 2024-09-05 09:30 | DVHDS2 ---
Discharge Summary Date of Admission Aug 10, 2024 at 21:12 Date of Discharge: Sep 05, 2024 Labs/Diagnostic Data: Laboratory Results Test 09/05/24 06:09 09/03/24 09:15 08/27/24 10:10 08/24/24 03:05 POC Glucose 100 mg/dl (70-106) White Blood Count 5.8 10^3/uL (4.4-10.8) Red Blood Count 3.24 10^6/uL (4.5-5.90) Hemoglobin 9.6 g/dL (13.5-17.5) Hematocrit 28.4 % (41.0-53.0) Mean Corpuscular Volume 87.8 fL (80.0-100.0) Mean Corpuscular Hemoglobin 29.8 pg (28.0-32.0) Mean Corpuscular Hemoglobin Concent 33.9 g/dL (32.0-36.0) Red Cell Distribution Width 13.3 % (11.8-14.3) Platelet Count 231 10^3/uL (140-450) Mean Platelet Volume 6.7 fL (6.9-10.8) Neutrophils (%) (Auto) 65.9 % (37.0-80.0) Lymphocytes (%) (Auto) 24.5 % (10.0-50.0) Monocytes (%) (Auto) 6.8 % (0.0-12.0) Eosinophils (%) (Auto) 1.9 % (0.0-7.0) Basophils (%) (Auto) 0.9 % (0.0-2.0) Neutrophils # (Auto) 3.8 10 ^3/uL (1.6-8.6) Lymphocytes # (Auto) 1.4 10 ^3/uL (0.4-5.4) Monocytes # (Auto) 0.4 10 ^3/uL (0-1.3) Eosinophils # (Auto) 0.1 10 ^3/uL (0-0.8) Basophils # (Auto) 0.1 10 ^3/uL (0-0.2) Nucleated Red Blood Cells 0.1 % Sodium Level 136 mmol/L (136-145) Potassium Level 3.8 mmol/L (3.5-5.1) Chloride Level 103 mmol/L (98-107) Carbon Dioxide Level 28 mmol/L (20-31) Anion Gap 5 (5-15) Blood Urea Nitrogen 21 mg/dL (9-23) Creatinine 0.71 mg/dL (0.700-1.30) Glomerular Filtration Rate Calc 95 mL/min (>90) BUN/Creatinine Ratio 29.6 (10.0-20.0) Serum Glucose 106 mg/dL (74-106) Calcium Level 8.9 mg/dL (8.7-10.4) Magnesium Level 1.6 mg/dL (1.6-2.6) Total Bilirubin 0.5 mg/dL (0.2-1.0) Aspartate Amino Transferase (AST) 31 U/L (13-40) Alanine Aminotransferase (ALT) 24 U/L (7-40) Alkaline Phosphatase 204 U/L (46-116) Total Protein 6.1 g/dL (5.7-8.2) Albumin 3.2 g/dL (3.2-4.8) Prothrombin Time 12.2 sec (9.3-11.8) Prothrombin Time INR 1.16 (0.9-1.15) Activated Partial Thromboplast Time 28.3 SEC (24.5-34.5) Phosphorus Level 2.9 mg/dL (2.4-5.1) Test 08/23/24 03:00 08/22/24 03:05 08/21/24 04:10 08/20/24 11:50 Ammonia < 10 umol/L (11-32) Vitamin B12 Level 543 pg/mL (211-911) Folic Acid 5.84 ng/mL (>5.38) Triglycerides Level 67 mg/dL (< 150) Creatine Kinase 510 U/L (46-171) Hemoglobin A1c 6.1 % A1C (<5.7) Test 08/19/24 08:40 08/15/24 14:47 08/15/24 11:20 08/15/24 06:55 Cortisol AM Sample 20.77 ug/dL (5.27-22.45) Miscellaneous Referred Test (Rm Tmp Sent to [facility] Blood Gas Specimen Type Arterial Blood Gas Sample Site Right radial Blood Gas Patient Temperature 37.0 Arterial Blood Date Drawn Arterial Blood pH 7.421 (7.350-7.450) Arterial Blood Partial Pressure CO2 40.5 mmHg (35.0-48.0) Arterial Blood Partial Pressure O2 126.4 mmHg (83.0-108.0) Arterial Blood HCO3 25.7 mmol/L (21.0-28.0) Arterial Blood Oxygen Saturation 98.2 % (94.0-98.0) Arterial Blood Base Excess 1.2 mmol/L (-2.0-3.0) Arterial Blood Oxyhemoglobin 97.9 % (94.0-98.0) Arterial Blood Carboxyhemoglobin 0.1 % (0.5-1.5) Arterial Blood Methemoglobin 0.2 % (0.0-1.5) Kirby Test Modified Blood Gas Total Hemoglobin 13.10 g/dL (13.5-17.5) Blood Gas Modality Vent - cpap Blood Gas Spontaneous Rate 12 FiO2 % 30.0 Blood Gas Pressure Support 8 Blood Gas PEEP or CPAP 5.0 Blood Gas Set Respiration Rate 14.0 Blood Gas Tidal Volume 500.0 Test 08/14/24 03:35 08/13/24 03:05 08/12/24 20:55 08/12/24 15:13 Platelet Estimate Decrea Large Platelets Few Random Vancomycin Level 12.6 ug/mL (5-10) Influenza Type A Antigen Negative (Negative) Influenza Type B Antigen Negative (Negative) SARS-CoV-2 Antigen (Rapid) Negative (NEGATIVE) Test 08/11/24 13:02 08/11/24 03:10 08/10/24 20:30 08/10/24 15:07 Urine Color Yellow (Yellow) Urine Clarity Turbid (Clear) Urine pH 5.5 (5.0-9.0) Urine Specific [place] 1.018 (1.001-1.035) Urine Protein 1+ (Negative) Urine Ketones Negative (Negative) Urine Blood 3+ /uL (Negative) Urine Nitrite Negative (Negative) Urine Bilirubin Negative (Negative) Urine Urobilinogen 4 mg/dL (Negative) Urine Leukocyte Esterase 1+ /uL (Negative) Urine RBC 13 /hpf (0 - 3) Urine WBC 14 /hpf (0 - 3) Urine Squamous Epithelial Cells Few /hpf (<5) Urine Bacteria Few /hpf (None Seen) Urine Hyaline Casts Few /lpf (0 - 2) Urine Granular Casts Few /lpf (0) Urine Mucus Few (None Seen) Urine Creatinine 67.44 mg/dL (30.0-125.0) Urine Protein/Creatinine Ratio 1.00 Urine Sodium 32 mmol/L (40-220) Urine Glucose Normal mg/dL (Normal) Urine Total Protein 67.3 mg/dL (1-14) Vitamin D 25-Hydroxy 68.2 ng/mL (30.0-100) Thyroid Stimulating Hormone (TSH) 4.48 uIU/mL (0.55-4.78) Parathyroid Hormone (Intact) 169.0 pg/mL (18.4-80.1) Hepatitis B Surface Antigen Negative (Negative) Hepatitis C Antibody Negative (Negative) Troponin I High Sensitivity 42 ng/L (</=54) Blood Gas Critical Value Read Back Yes Blood Gas Notified Whom Dr. su staples Blood Gas Notified Time [id number] Blood Gas Notified By Supervisor Hard Candy don garrido Test 08/10/24 14:08 08/10/24 13:42 Lactic Acid Level 0.7 mmol/L (0.4-2.0) Urine Opiates Screen Neg (NEGATIVE) Urine Fentanyl Screen Neg (NEGATIVE) Urine Barbiturates Screen Neg (NEGATIVE) Urine Phencyclidine Screen Neg (NEGATIVE) Urine Amphetamines Screen Neg (NEGATIVE) Urine Benzodiazepines Screen Neg (NEGATIVE) Urine Cocaine Screen Neg (NEGATIVE) Urine Cannabinoids Screen Neg (NEGATIVE) Other Laboratory Tests 09/03/24 09:15 Brief Hx & Hospital Course: Final diagnoses: Sepsis with septic shock due to want infection Decubitus wound infection with VRE Acute hypoxic respiratory failure, status post intubation and extubation Metabolic encephalopathy, Sepsis with septic shock Severe hypernatremia Severe dehydration DAYLIN due to vasomotor nephropathy Rhabdomyolysis Parkinson's disease Decubitus ulcer 78-year-old male was admitted for rhabdomyolysis and dehydration and severe septic shock and decubitus wounds He was resuscitated and treated in the ICU with vasopressors and mechanical ventilation and IV antibiotics His wounds required surgery twice for incision and drainage He remained on vasopressors even after extubation due to wound infection The sputum showed Klebsiella pneumoniae The wounds showed VRE His Parkinson's medication was restarted with Sinemet initially half a tablet 3 times a day and then was advanced to 1 3 times a day The patient is very weak and therefore he will need rehab and he will need to go to a longterm facility His hypotension was also treated with the midodrine and Florinef The patient is stable for discharge to a longterm facility for rehab Condition at Discharge: Stable Final Diagnosis/Problems List Acute hypoxic respiratory failure, Metabolic encephalopathy, Sepsis with septic shock Severe hypernatremia Severe dehydration DAYLIN due to vasomotor nephropathy Rhabdomyolysis Parkinson's disease Decubitus ulcer Discharge Disposition: Snf Facility SNF Discharge Will this Physician continue t: No Discharge Statement: "Patient was advised to return to the ER or call 911 if any headaches, dizziness, shortness of breath, chest pain, abdominal pain, bleeding, fevers, or worsening of medical condition. Patient was counseled about treatment plan, medications, possible side effects, patientverbalized understanding. All questions were answered to the best of my ability. This discharge took greater then 30 minutes in planning, reviewing documentation, counseling the patient, and discussing with other team members." ASSESSMENT ASSESSMENT Assessment Date of Service: Sep 05, 2024 Billing Provider: JELENA GAINES MD Common Visit Codes: NOT BILLABLE JELENA GAINES MD Sep 05, 2024 09:30
--- NOTE | 2024-09-05 13:06 | DVHOP2 ---
Operative Report [id number] AIM GRIER MD Sep 05, 2024 13:06
--- NOTE | 2024-09-05 13:29 | DVHOP ---
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 PROCEDURE: Wound debridement of above using sharp-end cautery dissection going up to the subcutaneous tissues. SURGEON: Ziyad German MD ASSOCIATE TECHNICIAN: None. ANESTHESIA: IV sedation and local anesthesia. DESCRIPTION OF PROCEDURE: The patient was prepped and draped in the usual sterile fashion in the lateral position with the left side up. The left upper back wound was done first and the necrotic tissue was debrided using cautery and sharp dissection, and tissue once removed secured for hemostasis and a dressing was applied. Attention was then directed towards the left lower back. Same thing, the necrotic tissue was removed using cautery and blunt dissection, and with this being done, hemostasis was secured, irrigation done and dressing was applied. The patient tolerated both the procedures well and was taken back to the recovery room in a stable condition. MD STEVEN Peterson/AMANDAA TID: [id number] RECEIPT: [id number] cc: Satinder Newman MD
[2024-09-05] MEDS: CARBIDOPA W LEVODOPA 25/100mg TABLET PO SCH (14:00)
--- NOTE | 2024-09-05 19:53 | DVHPN2 ---
Progress Note - Dictate Date Seen: Sep 05, 2024 Medical Necessity Reason Pt with a Central, PICC or Fol: Yes The following are medically ne: Powell Catheter Reason for powell catheter: Strict I&O Subjective Patient seen and examined at bedside. Breathing on room air. Overnight events reviewed. vital signs Vital Sign Date Time Temp Pulse Resp B/P (MAP) Pulse Ox O2 Delivery O2 Flow Rate FiO2 09/05/24 17:23 98.3 86 20 119/60 (79) 98 98.3 09/05/24 08:00 Room Air* 0 21 Total Intake and Output 09/04/24 09/04/24 09/05/24 15:00 23:00 07:00 Intake Total 350 ml 870 ml 400 ml Output Total 550 ml 500 ml 850 ml Balance -200 ml 370 ml -450 ml medications Current Medications Medications Dose Ordered Sig/Akiko Route Start Time Stop Time Status Last Admin Dose Admin Vancomycin HCl 200 ml @ 200 mls/hr Q12HR IV 08/10/24 22:00 UNV Lactated Ringer's 1,000 ml @ 50 mls/hr Q20H IV 08/19/24 08:00 09/05/24 15:11 50 MLS/HR Enteral Nutritional Formula 240 ml TIDWM PO 08/20/24 18:00 09/05/24 18:17 240 ML Dextrose 50 ml UD PRN IV 08/21/24 09:30 Diagnostic Test (Pha) 1 strip Q6HR 08/21/24 12:00 Cancel Insulin Human Regular FOLLOW SLIDING SCALE Q6HR SC 08/21/24 12:00 Cancel Dextrose 50 ml UD IV 08/21/24 10:00 Cancel Melatonin 3 mg HS PO 08/22/24 22:00 09/04/24 21:51 3 MG Midodrine 10 mg TID@0600,1200,1800 PO 08/23/24 12:00 09/05/24 18:17 10 MG Diagnostic Test (Pha) 1 strip ACHS 08/25/24 11:30 09/05/24 18:17 1 STRIP Insulin Human Regular ACHS SC 08/25/24 11:30 09/03/24 12:45 2 UNITS Acetaminophen 650 mg Q6HPRN PRN PO 08/25/24 16:00 08/30/24 10:13 650 MG Enteral Nutritional Formula 28.8 gm TID PO 08/26/24 14:00 09/05/24 06:03 28.8 GM Linezolid 300 ml @ 150 mls/hr Q12HR IV 08/26/24 22:00 09/05/24 09:42 150 MLS/HR Fludrocortisone Acetate 0.1 mg DAILY PO 08/29/24 10:00 09/04/24 09:37 0.1 MG Acetaminophen/ Hydrocodone Bitart 1 tab Q4HPRN PRN PO 08/30/24 11:30 09/04/24 15:19 1 TAB Lactulose 30 ml BIDPRN PRN PO 08/30/24 11:30 Morphine Sulfate 1 mg Q4HP PRN IV 08/31/24 08:30 09/01/24 02:35 1 MG Pantoprazole Sodium 40 mg DAILY@0600 PO 09/02/24 06:00 09/05/24 06:04 40 MG Thiamine HCl 100 mg DAILY PO 09/02/24 10:00 09/04/24 09:16 100 MG Folic Acid 1 mg DAILY PO 09/02/24 10:00 09/04/24 09:16 1 MG Multivitamins 1 tab DAILY PO 09/02/24 10:00 09/04/24 09:17 1 TAB Apixaban 5 mg BID PO 09/02/24 22:00 09/04/24 21:51 5 MG Meropenem 50 ml @ 17 mls/hr Q8HR IV 09/04/24 00:00 09/05/24 15:11 17 MLS/HR Carbidopa/Levodopa 0.5 tab TID PO 09/05/24 14:00 objective Gen.: Patient lying in bed in no apparent distress. Breathing on room air. Head: Normocephalic, atraumatic. Eyes: EOMI/PERRLA. Ears: Normal hearing. Normal anatomy. Neck/trachea: Trachea midline, supple. Nose: Normal external anatomy. Mouth: Moist mucous membranes. Chest: Decreased air entry bilaterally. No wheezing or rhonchi. Cardiovascular: Positive S1, positive S2. Regular rate and rhythm. Abdomen: Positive bowel sounds in all 4 quadrants. Soft, non-tender, non- distended. : Deferred. Rectal: Deferred. Skin: Warm, dry. Intact. Extremities: 2+ radial pulses bilaterally. No lower extremity edema. Neuro: Awake, alert, oriented x3. No gross motor or sensory deficits. Cranial nerves II through XII intact. Gait not assessed. laboratory and microbiology Laboratory Tests 09/03/24 09:15 Test 09/03/24 09:15 Range/Units Serum Glucose 106 74-106 mg/dL Assessment/Plan Impression: Acute hypoxic respiratory failure Leukocytosis Hypernatremia Parkinson's disease Acute metabolic encephalopathy Decubitus ulcers Sepsis Rhabdomyolysis Acute kidney injury Events: Remains on room air. No respiratory distress. Continue wound care Head of bed elevation Aspiration precautions Continue midodrine 10 mg TID Continue antibiotics Incentive spirometry Monitor hemoglobin Accu-Cheks for glycemic monitoring Nutritional support Monitor renal function Powell in place - monitor ins and outs Disposition per hospitalist. Labs and imaging reviewed. Rest of plan as noted below. Plan: S/p extubation 08/15/24 Breathing on room air. Supplemental O2 PRN. CT head: No acute intracranial hemorrhage or stroke. Pressors if necessary for hemodynamic support Titrate to keep MAP above 65 mmHg/SBP above 90 mmHg. Antibiotics. Monitor hemoglobin Head of bed elevation Aspiration precautions Monitor renal function due to Acute kidney injury. Monitor electrolytes. Supplement as necessary. Monitor sodium due to hypernatremia IV fluid hydration Do not over correct sodium. Sodium 136 (08/29/24) Nutritional support. Accu-Cheks, ISS. GI prophylaxis - Protonix DVT prophylaxis. Prognosis: Guarded given multiple comorbidities. Rest of plan per hospitalist and other consultants. Thank you Dr. Newman for allowing me to participate in this patient's care. Further recommendations will depend on patient's clinical course. Please do not hesitate to contact me if you have any questions or concerns. This medical document was created using an electronic medical record system with [employer] dictation system. Although this document has been carefully reviewed, there may still be some phonetic and typographical errors. These areas are purely typographical due to imperfections of the software programs, and do not reflect any compromise in the patient's medical care. Dietary Evaluation Review Comments: 1. If on Vent Consider Nepro 30ml/hr x 24 hr,( 58g pro 1274 kcal). this will support pt's needs at 100% protein, 94 % kcal. 2. If EN not possible, and NPO > 7 days, consider TPN per pharmacy. 3. If off Vent, and pass speech eval, offer Renal Specific -50g protein 2g Na 3 K Low phos, 4. If off vent on hemo dialysis, pass speech eval, offer Renal Standard 2 gNa 3 K, Low Phos diet. Expected Outcomes/Goals: advance to diet able to eat independently. Plan discussed with: Patient, Other (SRAVANI Mireles) REY REAGAN MD Sep 05, 2024 19:53
--- NOTE | 2024-09-05 22:35 | DVHPN2 ---
Progress Note - Dictate Date Seen: Sep 05, 2024 Medical Necessity Reason Pt with a Central, PICC or Fol: Yes The following are medically ne: Powell Catheter Reason for powell catheter: Strict I&O Subjective Mr. Howard is a 78 years old right-handed gentleman with a history of Parkinson's disease, the patient was admitted on 08/10 24 with a chief company of altered mental status I have seen and examined the patient, I have discussed with his nurse, roxana, he was awake, but is oriented to himself, he sees nonexisting things around him The case has been discussed with Dr. Newman No obvious tremors Respiratory culture, 08/12/2024: Klebsiella pneumoniae Blood culture, 08/10/24: Negative UDS, 08/10/2024: Negative Urinalysis, 08/10/2024: WBC 10, urine leukocyte: Trace WBC/HB/PLT/MCV, 08/20/24: 6.5/10.5/205/88.8 PT/INR/PTT, 08/14/2024: 13.9/1.34/30.9 Na, 08/10/2024: 170, 168, 08/11/2024: 165, 08/12/2024: 164, 08/13/2024: 161, 08/14/2024: 156, 08/19/2024: 149, 08/20/24: 149, 08/23/2023: 142 BUN/CR, 08/18/2024: 45/1.01, 08/20/2024: 42/1.07 CPK, 08/10/2024: 2513, 08/11/2024: 2525, 08/12/2024: 2844, 08/13/2024: 4268, 08/21/2024: 510 TBI/AST/ALT/AP, 08/20/2024: 1.4/148/210/179, 08/23/2024: 08/23/2024: 0.9/61/104/180 Ammonia, 08/23/2024: < 10 Hepatitis panel, 08/11/2024: Negative TSH, 08/11/2024: 4.48 Venous Doppler, lower extremities, 08/13/2024: No left DVT. Positive DVT involving the right lower extremity common femoral vein, femoral vein, popliteal vein and calf Chest x-ray, 08/10/2024: No acute cardiopulmonary disease. Elevation of the left hemidiaphragm. Enteric tube and endotracheal tube are in satisfactory position Chest x-ray, 08/21/2024: Increased congestion CT head, 08/10/2024: 1. No acute intracranial hemorrhage, midline shift or mass effect. 2. Generalized brain atrophy. 3. Small vessel ischemic/degenerative changes. 4. If symptoms persists, further evaluation with MRI is recommended MRI head, 08/19/2024: 1. No evidence of acute intracranial abnormality. 2. Motion limited study vital signs Vital Sign Date Time Temp Pulse Resp B/P (MAP) Pulse Ox O2 Delivery O2 Flow Rate FiO2 09/05/24 17:23 98.3 86 20 119/60 (79) 98 98.3 09/05/24 08:00 Room Air* 0 21 Total Intake and Output 09/04/24 09/04/24 09/05/24 15:00 23:00 07:00 Intake Total 350 ml 870 ml 400 ml Output Total 550 ml 500 ml 850 ml Balance -200 ml 370 ml -450 ml medications Current Medications Medications Dose Ordered Sig/Akiko Route Start Time Stop Time Status Last Admin Dose Admin Vancomycin HCl 200 ml @ 200 mls/hr Q12HR IV 08/10/24 22:00 UNV Lactated Ringer's 1,000 ml @ 50 mls/hr Q20H IV 08/19/24 08:00 09/05/24 15:11 50 MLS/HR Enteral Nutritional Formula 240 ml TIDWM PO 08/20/24 18:00 09/05/24 18:17 240 ML Dextrose 50 ml UD PRN IV 08/21/24 09:30 Diagnostic Test (Pha) 1 strip Q6HR 08/21/24 12:00 Cancel Insulin Human Regular FOLLOW SLIDING SCALE Q6HR SC 08/21/24 12:00 Cancel Dextrose 50 ml UD IV 08/21/24 10:00 Cancel Melatonin 3 mg HS PO 08/22/24 22:00 09/05/24 21:39 3 MG Midodrine 10 mg TID@0600,1200,1800 PO 08/23/24 12:00 09/05/24 18:17 10 MG Diagnostic Test (Pha) 1 strip ACHS 08/25/24 11:30 09/05/24 21:42 1 STRIP Insulin Human Regular ACHS SC 08/25/24 11:30 09/03/24 12:45 2 UNITS Acetaminophen 650 mg Q6HPRN PRN PO 08/25/24 16:00 08/30/24 10:13 650 MG Enteral Nutritional Formula 28.8 gm TID PO 08/26/24 14:00 09/05/24 06:03 28.8 GM Linezolid 300 ml @ 150 mls/hr Q12HR IV 08/26/24 22:00 09/05/24 21:23 150 MLS/HR Fludrocortisone Acetate 0.1 mg DAILY PO 08/29/24 10:00 09/04/24 09:37 0.1 MG Acetaminophen/ Hydrocodone Bitart 1 tab Q4HPRN PRN PO 08/30/24 11:30 09/04/24 15:19 1 TAB Lactulose 30 ml BIDPRN PRN PO 08/30/24 11:30 Morphine Sulfate 1 mg Q4HP PRN IV 08/31/24 08:30 09/01/24 02:35 1 MG Pantoprazole Sodium 40 mg DAILY@0600 PO 09/02/24 06:00 09/05/24 06:04 40 MG Thiamine HCl 100 mg DAILY PO 09/02/24 10:00 09/04/24 09:16 100 MG Folic Acid 1 mg DAILY PO 09/02/24 10:00 09/04/24 09:16 1 MG Multivitamins 1 tab DAILY PO 09/02/24 10:00 09/04/24 09:17 1 TAB Apixaban 5 mg BID PO 09/02/24 22:00 09/05/24 21:38 5 MG Meropenem 50 ml @ 17 mls/hr Q8HR IV 09/04/24 00:00 09/05/24 15:11 17 MLS/HR Carbidopa/Levodopa 0.5 tab TID PO 09/05/24 14:00 objective General: the patient is well developed and nourished. No acute distress. MENTAL STATUS: Subjective SPEECH, LANGUAGE, HIGHER CORTICAL FUNCTION: no aphasia or dysathria. CRANIAL NERVES: Pupils are equal, round and reactive. EOMs full and conjugate. No nystagmus. Facial sensation intact in all three divisions bilaterally. Mandibular strength intact. Facial muscles symmetrical and strength intact. SENSATION: Sensation to touch and pinprick is Ok MOTOR: Normal muscle bulk. No fasciculations. He moves the arms REFLEXES: Deep tendon reflexes normal and symmetrical. No pathological reflexes. CEREBELLAR/COORDINATION: Deferred GAIT/STATION: deferred laboratory and microbiology Laboratory Tests 09/03/24 09:15 Test 09/03/24 09:15 Range/Units Serum Glucose 106 74-106 mg/dL Problem List Altered mental status/metabolic encephalopathy secondary to Sepsis Septic shock Respiratory failure Urinary tract infection Dehydration Acute kidney failure Hypernatremia ? Levodopa side effects Rhabdomyolysis Hand tremors, gait disturbance, low voice Parkinson's disease Rule out essential tremor Pressure sores DVT Assessment/Plan Monitoring Supportive treatment Oxygen IV antiepileptics Hydration Sinemet 25/100, 0.5 tablets, t.i.d. Midodrine Current pain management Okay to use Tylenol for pain control Wound care DVT prophylaxis GI prophylaxis Pulmonary on case Nephrology on case Surgery on case More recommendation per clinical course This medical document was created using an electronic medical record system with [employer] dictation system. Although this document has been carefully reviewed, there may still be some phonetic and typographical errors. These areas are purely typographical due to imperfections of the software programs, and do not reflect any compromise in the patient's medical care Prognosis poor Dietary Evaluation Review Comments: 1. If on Vent Consider Nepro 30ml/hr x 24 hr,( 58g pro 1274 kcal). this will support pt's needs at 100% protein, 94 % kcal. 2. If EN not possible, and NPO > 7 days, consider TPN per pharmacy. 3. If off Vent, and pass speech eval, offer Renal Specific -50g protein 2g Na 3 K Low phos, 4. If off vent on hemo dialysis, pass speech eval, offer Renal Standard 2 gNa 3 K, Low Phos diet. Expected Outcomes/Goals: advance to diet able to eat independently. Plan discussed with: Other Total Time (mins): 40 EVELINE HUNTER MD Sep 05, 2024 22:35
[2024-09-06] VITALS (8 sets, daily range): BP systolic 96–116; BP diastolic 50–63; PULSE 77–92; RESP 17; TEMP 97.6–98.3; O2SAT 97–100
--- NOTE | 2024-09-06 08:29 | DVHPN2 ---
Subjective Confused and disoriented to place and time No distress +Resting tremors Reviewed: Care Plan, H&P, Labs, Medications, Previous Orders, Radiology, Other (Consultants) Changes from previous H/P or p: Changes General: Per HPI Objective Vitals Vital Signs Date Time Temp Pulse Resp B/P (MAP) Pulse Ox O2 Delivery O2 Flow Rate FiO2 09/06/24 05:00 97.8 78 17 98/55 (69) 99 97.8 09/05/24 20:00 Room Air* 0 21 Intake/Output Intake and Output 09/06/24 07:00 Intake Total 2140 ml Output Total 2250 ml Balance -110 ml Intake Oral 390 ml IV Total 1750 ml Output Urine Total 2250 ml General Appearance: Alert, Oriented X3, Cooperative, No acute distress HEENT: Atraumatic, PERRLA Lungs: Clear to auscultation, Normal air movement Cardiovascular: Regular rate, Normal S1, Normal S2 Abdomen: Normal bowel sounds, Soft, No tenderness Musculoskeletal: Weak motor strength RUE, Weak motor strength LUE, Weak motor strength RLE, Weak motor strength LLE Extremities: Other Skin: Wounds Psych/Mental Status: Other Medications Current Medications Medications Dose Ordered Sig/Akiko Route Start Time Stop Time Status Last Admin Dose Admin Vancomycin HCl 200 ml @ 200 mls/hr Q12HR IV 08/10/24 22:00 UNV Enteral Nutritional Formula 240 ml TIDWM PO 08/20/24 18:00 09/05/24 18:17 240 ML Dextrose 50 ml UD PRN IV 08/21/24 09:30 Diagnostic Test (Pha) 1 strip Q6HR 08/21/24 12:00 Cancel Insulin Human Regular FOLLOW SLIDING SCALE Q6HR SC 08/21/24 12:00 Cancel Dextrose 50 ml UD IV 08/21/24 10:00 Cancel Melatonin 3 mg HS PO 08/22/24 22:00 09/05/24 21:39 3 MG Midodrine 10 mg TID@0600,1200,1800 PO 08/23/24 12:00 09/06/24 05:56 10 MG Diagnostic Test (Pha) 1 strip ACHS 08/25/24 11:30 09/06/24 06:05 1 STRIP Insulin Human Regular ACHS SC 08/25/24 11:30 09/03/24 12:45 2 UNITS Acetaminophen 650 mg Q6HPRN PRN PO 08/25/24 16:00 08/30/24 10:13 650 MG Enteral Nutritional Formula 28.8 gm TID PO 08/26/24 14:00 09/06/24 05:54 28.8 GM Fludrocortisone Acetate 0.1 mg DAILY PO 08/29/24 10:00 09/04/24 09:37 0.1 MG Acetaminophen/ Hydrocodone Bitart 1 tab Q4HPRN PRN PO 08/30/24 11:30 09/04/24 15:19 1 TAB Lactulose 30 ml BIDPRN PRN PO 08/30/24 11:30 Morphine Sulfate 1 mg Q4HP PRN IV 08/31/24 08:30 09/01/24 02:35 1 MG Pantoprazole Sodium 40 mg DAILY@0600 PO 09/02/24 06:00 09/06/24 05:55 40 MG Thiamine HCl 100 mg DAILY PO 09/02/24 10:00 09/04/24 09:16 100 MG Folic Acid 1 mg DAILY PO 09/02/24 10:00 09/04/24 09:16 1 MG Multivitamins 1 tab DAILY PO 09/02/24 10:00 09/04/24 09:17 1 TAB Apixaban 5 mg BID PO 09/02/24 22:00 09/05/24 21:38 5 MG Carbidopa/Levodopa 0.5 tab TID PO 09/05/24 14:00 Linezolid 600 mg BID PO 09/06/24 10:00 UNV Laboratory Results Laboratory Tests 09/03/24 09:15 Urinalysis Test 08/11/24 13:02 Urine Color Yellow (Yellow) Urine Clarity Turbid (Clear) H Urine pH 5.5 (5.0-9.0) Urine Specific Stephens 1.018 (1.001-1.035) Urine Protein 1+ (Negative) H Urine Ketones Negative (Negative) Urine Blood 3+ /uL (Negative) H Urine Nitrite Negative (Negative) Urine Bilirubin Negative (Negative) Urine Urobilinogen 4 mg/dL (Negative) H Urine Leukocyte Esterase 1+ /uL (Negative) Urine RBC 13 /hpf (0 - 3) Urine WBC 14 /hpf (0 - 3) Urine Squamous Epithelial Cells Few /hpf (<5) Urine Bacteria Few /hpf (None Seen) H Urine Hyaline Casts Few /lpf (0 - 2) Urine Granular Casts Few /lpf (0) Urine Mucus Few (None Seen) Urine Creatinine 67.44 mg/dL (30.0-125.0) Urine Protein/Creatinine Ratio 1.00 Urine Sodium 32 mmol/L (40-220) L Urine Glucose Normal mg/dL (Normal) Urine Total Protein 67.3 mg/dL (1-14) H Microbiology Microbiology Date/Time Source Procedure Growth Status 08/31/24 09:35 Urine - [place] Urine Culture - Final Complete 08/26/24 15:45 Penis Gram Stain - Final Complete 08/26/24 15:45 Wound Culture - Final Pseudo fluorescence/putida Enterococcus faecium - VRE Presumptive Ema albicans Complete 08/22/24 15:28 Back Lumbar Gram Stain - Final Complete 08/22/24 15:28 Wound Culture - Final Enterococcus faecium - VRE Complete 08/12/24 19:02 Bronchial Washings Gram Stain - Final Resulted 08/12/24 19:02 Respiratory Culture - Preliminary Klebsiella pneumoniae Presumptive Ema albicans Resulted 08/10/24 14:08 Blood Blood Culture - Final NO GROWTH AFTER 5 DAYS OF INCUBATION. Complete Assessment/Plan Assessment/Plan Sepsis with septic shock Metabolic encephalopathy, Wound infection of left buttock and back Parkinson's disease R leg DVT Hypernatremia: resolved DAYLIN: Better Respiratory failure: Better PLAN: 08/31/24: IV antibiotics: Zyvox, add Meropenem, consult ID Levophed drip Noemi German to do I$D for wound IV fluids: LR Sinemet Nutritional supplements Midodrine Florinef Small dose morphine for pain NPO for possible surgery today 09/01/24: Downgrade to Tele Physical therapy Wound care LR Zyvox Meropenem Sinemet Midodrine Florinef Vitamins 09/03/24: Physical therapy Wound care Zyvox Out of bed as tolerated 09/04/24: Continue PT Arrange SNF 09/06/24: Change meds to PO Zyvox 600 mg bid po DC Meropenem DC IV fluids DC to SNF once a bed is available Plan discussed with: Other My Orders Orders - JELENA GAINES MD Procedure Category Date Status Time Carbidopa W Levodopa PHA 09/05/24 In Process 25/100mg (Sinemet 2 14:00 Discharge DISCHARGE 09/05/24 Transmitted 09:40 Linezolid Tablet PHA 09/06/24 Logged (Zyvox Tablet) 10:00 Date of Service: Sep 06, 2024 Billing Provider: JELENA GAINES MD Common Visit Codes: NOT BILLABLE JELENA GAINES MD Sep 06, 2024 08:29
[2024-09-06] MEDS: LINEZOLID 600MG TABLET PO SCH (11:05)
--- NOTE | 2024-09-06 19:39 | DVHPN2 ---
Progress Note - Dictate Date Seen: Sep 06, 2024 Medical Necessity Reason Pt with a Central, PICC or Fol: Yes The following are medically ne: Powell Catheter Reason for powell catheter: Strict I&O Subjective Mr. Howard is a 78 years old right-handed gentleman with a history of Parkinson's disease, the patient was admitted on 08/10 24 with a chief company of altered mental status I have seen and examined the patient, I have discussed with his nurse, he is awake, but is oriented to person and place, nurse does not reports visual hallucination symptoms No obvious tremors Respiratory culture, 08/12/2024: Klebsiella pneumoniae Blood culture, 08/10/24: Negative UDS, 08/10/2024: Negative Urinalysis, 08/10/2024: WBC 10, urine leukocyte: Trace WBC/HB/PLT/MCV, 08/20/24: 6.5/10.5/205/88.8 PT/INR/PTT, 08/14/2024: 13.9/1.34/30.9 Na, 08/10/2024: 170, 168, 08/11/2024: 165, 08/12/2024: 164, 08/13/2024: 161, 08/14/2024: 156, 08/19/2024: 149, 08/20/24: 149, 08/23/2023: 142 BUN/CR, 08/18/2024: 45/1.01, 08/20/2024: 42/1.07 CPK, 08/10/2024: 2513, 08/11/2024: 2525, 08/12/2024: 2844, 08/13/2024: 4268, 08/21/2024: 510 TBI/AST/ALT/AP, 08/20/2024: 1.4/148/210/179, 08/23/2024: 08/23/2024: 0.9/61/104/180 Ammonia, 08/23/2024: < 10 Hepatitis panel, 08/11/2024: Negative TSH, 08/11/2024: 4.48 Venous Doppler, lower extremities, 08/13/2024: No left DVT. Positive DVT involving the right lower extremity common femoral vein, femoral vein, popliteal vein and calf Chest x-ray, 08/10/2024: No acute cardiopulmonary disease. Elevation of the left hemidiaphragm. Enteric tube and endotracheal tube are in satisfactory position Chest x-ray, 08/21/2024: Increased congestion CT head, 08/10/2024: 1. No acute intracranial hemorrhage, midline shift or mass effect. 2. Generalized brain atrophy. 3. Small vessel ischemic/degenerative changes. 4. If symptoms persists, further evaluation with MRI is recommended MRI head, 08/19/2024: 1. No evidence of acute intracranial abnormality. 2. Motion limited study vital signs Vital Sign Date Time Temp Pulse Resp B/P (MAP) Pulse Ox O2 Delivery O2 Flow Rate FiO2 09/06/24 17:00 97.6 92 17 96/50 (65) 97 97.6 09/06/24 08:00 Room Air* 0 21 Total Intake and Output 09/05/24 09/05/24 09/06/24 15:00 23:00 07:00 Intake Total 380 ml 1350 ml 410 ml Output Total 1700 ml 550 ml Balance 380 ml -350 ml -140 ml medications Current Medications Medications Dose Ordered Sig/Akiko Route Start Time Stop Time Status Last Admin Dose Admin Vancomycin HCl 200 ml @ 200 mls/hr Q12HR IV 08/10/24 22:00 UNV Enteral Nutritional Formula 240 ml TIDWM PO 08/20/24 18:00 09/06/24 18:00 240 ML Dextrose 50 ml UD PRN IV 08/21/24 09:30 Diagnostic Test (Pha) 1 strip Q6HR 08/21/24 12:00 Cancel Insulin Human Regular FOLLOW SLIDING SCALE Q6HR SC 08/21/24 12:00 Cancel Dextrose 50 ml UD IV 08/21/24 10:00 Cancel Melatonin 3 mg HS PO 08/22/24 22:00 09/05/24 21:39 3 MG Midodrine 10 mg TID@0600,1200,1800 PO 08/23/24 12:00 09/06/24 17:24 10 MG Diagnostic Test (Pha) 1 strip ACHS 08/25/24 11:30 09/06/24 17:00 1 STRIP Insulin Human Regular ACHS SC 08/25/24 11:30 09/03/24 12:45 2 UNITS Acetaminophen 650 mg Q6HPRN PRN PO 08/25/24 16:00 08/30/24 10:13 650 MG Enteral Nutritional Formula 28.8 gm TID PO 08/26/24 14:00 09/06/24 14:00 28.8 GM Fludrocortisone Acetate 0.1 mg DAILY PO 08/29/24 10:00 09/06/24 11:04 0.1 MG Acetaminophen/ Hydrocodone Bitart 1 tab Q4HPRN PRN PO 08/30/24 11:30 09/04/24 15:19 1 TAB Lactulose 30 ml BIDPRN PRN PO 08/30/24 11:30 Morphine Sulfate 1 mg Q4HP PRN IV 08/31/24 08:30 09/01/24 02:35 1 MG Pantoprazole Sodium 40 mg DAILY@0600 PO 09/02/24 06:00 09/06/24 05:55 40 MG Thiamine HCl 100 mg DAILY PO 09/02/24 10:00 09/06/24 11:03 100 MG Folic Acid 1 mg DAILY PO 09/02/24 10:00 09/06/24 11:04 1 MG Multivitamins 1 tab DAILY PO 09/02/24 10:00 09/06/24 11:04 1 TAB Apixaban 5 mg BID PO 09/02/24 22:00 09/06/24 11:01 5 MG Carbidopa/Levodopa 0.5 tab TID PO 09/05/24 14:00 09/06/24 13:24 0.5 TAB Linezolid 600 mg BID PO 09/06/24 10:00 09/06/24 11:05 600 MG objective General: the patient is well developed and nourished. No acute distress. MENTAL STATUS: Subjective SPEECH, LANGUAGE, HIGHER CORTICAL FUNCTION: no aphasia or dysathria. CRANIAL NERVES: Pupils are equal, round and reactive. EOMs full and conjugate. No nystagmus. Facial sensation intact in all three divisions bilaterally. Mandibular strength intact. Facial muscles symmetrical and strength intact. SENSATION: Sensation to touch and pinprick is Ok MOTOR: Normal muscle bulk. No fasciculations. He moves the arms REFLEXES: Deep tendon reflexes normal and symmetrical. No pathological reflexes. CEREBELLAR/COORDINATION: Deferred GAIT/STATION: deferred laboratory and microbiology Laboratory Tests 09/03/24 09:15 Test 09/03/24 09:15 Range/Units Serum Glucose 106 74-106 mg/dL Problem List Altered mental status/metabolic encephalopathy secondary to Sepsis Septic shock Respiratory failure Urinary tract infection Dehydration Acute kidney failure Hypernatremia ? Levodopa side effects Rhabdomyolysis Hand tremors, gait disturbance, low voice Parkinson's disease Rule out essential tremor Pressure sores DVT Assessment/Plan Monitoring Supportive treatment Oxygen IV antiepileptics Hydration Sinemet 25/100, 0.5 tablets, t.i.d. Midodrine Current pain management Okay to use Tylenol for pain control Wound care DVT prophylaxis GI prophylaxis Pulmonary on case Nephrology on case Surgery on case More recommendation per clinical course This medical document was created using an electronic medical record system with [employer] dictation system. Although this document has been carefully reviewed, there may still be some phonetic and typographical errors. These areas are purely typographical due to imperfections of the software programs, and do not reflect any compromise in the patient's medical care Prognosis poor Dietary Evaluation Review Comments: 1. If on Vent Consider Nepro 30ml/hr x 24 hr,( 58g pro 1274 kcal). this will support pt's needs at 100% protein, 94 % kcal. 2. If EN not possible, and NPO > 7 days, consider TPN per pharmacy. 3. If off Vent, and pass speech eval, offer Renal Specific -50g protein 2g Na 3 K Low phos, 4. If off vent on hemo dialysis, pass speech eval, offer Renal Standard 2 gNa 3 K, Low Phos diet. Expected Outcomes/Goals: advance to diet able to eat independently. Plan discussed with: Other EVELINE HUNTER MD Sep 06, 2024 19:39
--- NOTE | 2024-09-06 22:27 | DVHPN2 ---
Progress Note - Dictate Date Seen: Sep 06, 2024 Medical Necessity Reason Pt with a Central, PICC or Fol: Yes The following are medically ne: Powell Catheter Reason for powell catheter: Strict I&O Subjective Patient seen and examined at bedside. Breathing on room air. Overnight events reviewed. vital signs Vital Sign Date Time Temp Pulse Resp B/P (MAP) Pulse Ox O2 Delivery O2 Flow Rate FiO2 09/06/24 17:00 97.6 92 17 96/50 (65) 97 97.6 09/06/24 08:00 Room Air* 0 21 Total Intake and Output 09/05/24 09/05/24 09/06/24 15:00 23:00 07:00 Intake Total 380 ml 1350 ml 410 ml Output Total 1700 ml 550 ml Balance 380 ml -350 ml -140 ml medications Current Medications Medications Dose Ordered Sig/Akiko Route Start Time Stop Time Status Last Admin Dose Admin Vancomycin HCl 200 ml @ 200 mls/hr Q12HR IV 08/10/24 22:00 UNV Enteral Nutritional Formula 240 ml TIDWM PO 08/20/24 18:00 09/06/24 18:00 240 ML Dextrose 50 ml UD PRN IV 08/21/24 09:30 Diagnostic Test (Pha) 1 strip Q6HR 08/21/24 12:00 Cancel Insulin Human Regular FOLLOW SLIDING SCALE Q6HR SC 08/21/24 12:00 Cancel Dextrose 50 ml UD IV 08/21/24 10:00 Cancel Melatonin 3 mg HS PO 08/22/24 22:00 09/06/24 21:28 3 MG Midodrine 10 mg TID@0600,1200,1800 PO 08/23/24 12:00 09/06/24 17:24 10 MG Diagnostic Test (Pha) 1 strip ACHS 08/25/24 11:30 09/06/24 21:40 1 STRIP Insulin Human Regular ACHS SC 08/25/24 11:30 09/03/24 12:45 2 UNITS Acetaminophen 650 mg Q6HPRN PRN PO 08/25/24 16:00 08/30/24 10:13 650 MG Enteral Nutritional Formula 28.8 gm TID PO 08/26/24 14:00 09/06/24 21:26 28.8 GM Fludrocortisone Acetate 0.1 mg DAILY PO 08/29/24 10:00 09/06/24 11:04 0.1 MG Acetaminophen/ Hydrocodone Bitart 1 tab Q4HPRN PRN PO 08/30/24 11:30 09/04/24 15:19 1 TAB Lactulose 30 ml BIDPRN PRN PO 08/30/24 11:30 Morphine Sulfate 1 mg Q4HP PRN IV 08/31/24 08:30 09/01/24 02:35 1 MG Pantoprazole Sodium 40 mg DAILY@0600 PO 09/02/24 06:00 09/06/24 05:55 40 MG Thiamine HCl 100 mg DAILY PO 09/02/24 10:00 09/06/24 11:03 100 MG Folic Acid 1 mg DAILY PO 09/02/24 10:00 09/06/24 11:04 1 MG Multivitamins 1 tab DAILY PO 09/02/24 10:00 09/06/24 11:04 1 TAB Apixaban 5 mg BID PO 09/02/24 22:00 09/06/24 21:27 5 MG Carbidopa/Levodopa 0.5 tab TID PO 09/05/24 14:00 09/06/24 13:24 0.5 TAB Linezolid 600 mg BID PO 09/06/24 10:00 09/06/24 21:27 600 MG objective Gen.: Patient lying in bed in no apparent distress. Breathing on room air. Head: Normocephalic, atraumatic. Eyes: EOMI/PERRLA. Ears: Normal hearing. Normal anatomy. Neck/trachea: Trachea midline, supple. Nose: Normal external anatomy. Mouth: Moist mucous membranes. Chest: Decreased air entry bilaterally. No wheezing or rhonchi. Cardiovascular: Positive S1, positive S2. Regular rate and rhythm. Abdomen: Positive bowel sounds in all 4 quadrants. Soft, non-tender, non- distended. : Deferred. Rectal: Deferred. Skin: Warm, dry. Intact. Extremities: 2+ radial pulses bilaterally. No lower extremity edema. Neuro: Awake, alert, oriented x3. No gross motor or sensory deficits. Cranial nerves II through XII intact. Gait not assessed. laboratory and microbiology Laboratory Tests 09/03/24 09:15 Test 09/03/24 09:15 Range/Units Serum Glucose 106 74-106 mg/dL Assessment/Plan Impression: Acute hypoxic respiratory failure Leukocytosis Hypernatremia Parkinson's disease Acute metabolic encephalopathy Decubitus ulcers Sepsis Rhabdomyolysis Acute kidney injury Events: Remains on room air. No respiratory distress. Continue wound care Head of bed elevation Aspiration precautions Continue midodrine 10 mg TID Continue antibiotics Incentive spirometry Monitor hemoglobin Accu-Cheks for glycemic monitoring Nutritional support Monitor renal function Powell in place - monitor ins and outs Plan for SNF placement. Disposition per hospitalist. Labs and imaging reviewed. Rest of plan as noted below. Plan: S/p extubation 08/15/24 Breathing on room air. Supplemental O2 PRN. CT head: No acute intracranial hemorrhage or stroke. Pressors if necessary for hemodynamic support Titrate to keep MAP above 65 mmHg/SBP above 90 mmHg. Antibiotics. Monitor hemoglobin Head of bed elevation Aspiration precautions Monitor renal function due to Acute kidney injury. Monitor electrolytes. Supplement as necessary. Monitor sodium due to hypernatremia IV fluid hydration Do not over correct sodium. Sodium 136 (08/29/24) Nutritional support. Accu-Cheks, ISS. GI prophylaxis - Protonix DVT prophylaxis. Prognosis: Guarded given multiple comorbidities. Rest of plan per hospitalist and other consultants. Thank you Dr. Newman for allowing me to participate in this patient's care. Further recommendations will depend on patient's clinical course. Please do not hesitate to contact me if you have any questions or concerns. This medical document was created using an electronic medical record system with [employer] dictation system. Although this document has been carefully reviewed, there may still be some phonetic and typographical errors. These areas are purely typographical due to imperfections of the software programs, and do not reflect any compromise in the patient's medical care. Dietary Evaluation Review Comments: 1. If on Vent Consider Nepro 30ml/hr x 24 hr,( 58g pro 1274 kcal). this will support pt's needs at 100% protein, 94 % kcal. 2. If EN not possible, and NPO > 7 days, consider TPN per pharmacy. 3. If off Vent, and pass speech eval, offer Renal Specific -50g protein 2g Na 3 K Low phos, 4. If off vent on hemo dialysis, pass speech eval, offer Renal Standard 2 gNa 3 K, Low Phos diet. Expected Outcomes/Goals: advance to diet able to eat independently. Plan discussed with: Patient, Other (SRAVANI GamingREY HERRERA MD Sep 06, 2024 22:27
[2024-09-07 05:00] VITALS: BP 120/64; PULSE 84; RESP 17; TEMP 97.8; O2SAT 99
[2024-09-07 08:00] VITALS: PULSE 71
[2024-09-07 09:00] VITALS: BP 105/60; PULSE 80; RESP 14; TEMP 98.2; O2SAT 97
[2024-09-07] MEDS: LACTULOSE 20Gm/30ML SOLN PO PRN (09:14)
--- NOTE | 2024-09-07 10:10 | DVHPN2 ---
Subjective More alert No new complaints Reviewed: Care Plan, H&P, Labs, Medications, Previous Orders, Radiology, Other (Consultants) Changes from previous H/P or p: Changes General: Per HPI Objective Vitals Vital Signs Date Time Temp Pulse Resp B/P (MAP) Pulse Ox O2 Delivery O2 Flow Rate FiO2 09/07/24 09:00 98.2 80 14 105/60 (75) 97 98.2 09/07/24 08:00 Room Air* 0 21 Intake/Output Intake and Output 09/07/24 07:00 Intake Total 3402 ml Output Total 3525 ml Balance -123 ml Intake Oral 3402 ml Output Urine Total 3525 ml # Bowel Movements 1 General Appearance: Alert, Oriented X3, Cooperative, No acute distress HEENT: Atraumatic, PERRLA Lungs: Clear to auscultation, Normal air movement Cardiovascular: Regular rate, Normal S1, Normal S2 Abdomen: Normal bowel sounds, Soft, No tenderness Musculoskeletal: Weak motor strength RUE, Weak motor strength LUE, Weak motor strength RLE, Weak motor strength LLE Extremities: Other Skin: Wounds Psych/Mental Status: Other Medications Current Medications Medications Dose Ordered Sig/Akiko Route Start Time Stop Time Status Last Admin Dose Admin Vancomycin HCl 200 ml @ 200 mls/hr Q12HR IV 08/10/24 22:00 UNV Enteral Nutritional Formula 240 ml TIDWM PO 08/20/24 18:00 09/07/24 08:00 240 ML Dextrose 50 ml UD PRN IV 08/21/24 09:30 Diagnostic Test (Pha) 1 strip Q6HR 08/21/24 12:00 Cancel Insulin Human Regular FOLLOW SLIDING SCALE Q6HR SC 08/21/24 12:00 Cancel Dextrose 50 ml UD IV 08/21/24 10:00 Cancel Melatonin 3 mg HS PO 08/22/24 22:00 09/06/24 21:28 3 MG Midodrine 10 mg TID@0600,1200,1800 PO 08/23/24 12:00 09/07/24 05:47 10 MG Diagnostic Test (Pha) 1 strip ACHS 08/25/24 11:30 09/07/24 06:03 1 STRIP Insulin Human Regular ACHS SC 08/25/24 11:30 09/03/24 12:45 2 UNITS Acetaminophen 650 mg Q6HPRN PRN PO 08/25/24 16:00 09/07/24 00:38 650 MG Enteral Nutritional Formula 28.8 gm TID PO 08/26/24 14:00 09/07/24 05:48 28.8 GM Fludrocortisone Acetate 0.1 mg DAILY PO 08/29/24 10:00 09/07/24 09:01 0.1 MG Acetaminophen/ Hydrocodone Bitart 1 tab Q4HPRN PRN PO 08/30/24 11:30 09/07/24 09:03 1 TAB Lactulose 30 ml BIDPRN PRN PO 08/30/24 11:30 09/07/24 09:14 30 ML Morphine Sulfate 1 mg Q4HP PRN IV 08/31/24 08:30 09/01/24 02:35 1 MG Pantoprazole Sodium 40 mg DAILY@0600 PO 09/02/24 06:00 09/07/24 05:47 40 MG Thiamine HCl 100 mg DAILY PO 09/02/24 10:00 09/07/24 09:14 100 MG Folic Acid 1 mg DAILY PO 09/02/24 10:00 09/07/24 09:01 1 MG Multivitamins 1 tab DAILY PO 09/02/24 10:00 09/07/24 09:01 1 TAB Apixaban 5 mg BID PO 09/02/24 22:00 09/07/24 09:03 5 MG Carbidopa/Levodopa 0.5 tab TID PO 09/05/24 14:00 09/07/24 05:48 0.5 TAB Linezolid 600 mg BID PO 09/06/24 10:00 09/07/24 09:01 600 MG Laboratory Results Laboratory Tests 09/03/24 09:15 Urinalysis Test 08/11/24 13:02 Urine Color Yellow (Yellow) Urine Clarity Turbid (Clear) H Urine pH 5.5 (5.0-9.0) Urine Specific [place] 1.018 (1.001-1.035) Urine Protein 1+ (Negative) H Urine Ketones Negative (Negative) Urine Blood 3+ /uL (Negative) H Urine Nitrite Negative (Negative) Urine Bilirubin Negative (Negative) Urine Urobilinogen 4 mg/dL (Negative) H Urine Leukocyte Esterase 1+ /uL (Negative) Urine RBC 13 /hpf (0 - 3) Urine WBC 14 /hpf (0 - 3) Urine Squamous Epithelial Cells Few /hpf (<5) Urine Bacteria Few /hpf (None Seen) H Urine Hyaline Casts Few /lpf (0 - 2) Urine Granular Casts Few /lpf (0) Urine Mucus Few (None Seen) Urine Creatinine 67.44 mg/dL (30.0-125.0) Urine Protein/Creatinine Ratio 1.00 Urine Sodium 32 mmol/L (40-220) L Urine Glucose Normal mg/dL (Normal) Urine Total Protein 67.3 mg/dL (1-14) H Microbiology Microbiology Date/Time Source Procedure Growth Status 08/31/24 09:35 Urine - [place] Urine Culture - Final Complete 08/26/24 15:45 Penis Gram Stain - Final Complete 08/26/24 15:45 Wound Culture - Final Pseudo fluorescence/putida Enterococcus faecium - VRE Presumptive Ema albicans Complete 08/22/24 15:28 Back Lumbar Gram Stain - Final Complete 08/22/24 15:28 Wound Culture - Final Enterococcus faecium - VRE Complete 08/12/24 19:02 Bronchial Washings Gram Stain - Final Resulted 08/12/24 19:02 Respiratory Culture - Preliminary Klebsiella pneumoniae Presumptive Ema albicans Resulted 08/10/24 14:08 Blood Blood Culture - Final NO GROWTH AFTER 5 DAYS OF INCUBATION. Complete Assessment/Plan Assessment/Plan Sepsis with septic shock Metabolic encephalopathy, Wound infection of left buttock and back Parkinson's disease R leg DVT Hypernatremia: resolved DAYLIN: Better Respiratory failure: Better PLAN: 08/31/24: IV antibiotics: Zyvox, add Meropenem, consult ID Levophed kiera German to do I$D for wound IV fluids: LR Sinemet Nutritional supplements Midodrine Florinef Small dose morphine for pain NPO for possible surgery today 09/01/24: Downgrade to Tele Physical therapy Wound care LR Zyvox Meropenem Sinemet Midodrine Florinef Vitamins 09/03/24: Physical therapy Wound care Zyvox Out of bed as tolerated 09/04/24: Continue PT Arrange SNF 09/06/24: Change meds to PO Zyvox 600 mg bid po DC Meropenem DC IV fluids DC to SNF once a bed is available 09/07/24: Continue current treatment pending discharge to SNF Continue physical therapy Plan discussed with: Patient, Daughter My Orders Orders - JELENA GAINES MD Procedure Category Date Status Time D/C Triple Lumen ORDERS 09/06/24 Transmitted 10:24 Date of Service: Sep 07, 2024 Billing Provider: JELENA GAINES MD Common Visit Codes: NOT BILLABLE JELENA GAINES MD Sep 07, 2024 10:10
[2024-09-07 13:00] VITALS: BP 92/51; PULSE 81; RESP 16; TEMP 98.5; O2SAT 98
--- NOTE | 2024-09-07 14:56 | DVHPN2 ---
Progress Note Date Seen: Sep 07, 2024 Medical Necessity Reason Pt with a Central, PICC or Fol: Yes The following are medically ne: Powell Catheter Reason for powell catheter: Strict I&O Objective vital signs Vital Sign Date Time Temp Pulse Resp B/P (MAP) Pulse Ox O2 Delivery O2 Flow Rate FiO2 09/07/24 09:00 98.2 80 14 105/60 (75) 97 98.2 09/07/24 08:00 Room Air* 0 21 Total Intake and Output 09/06/24 09/06/24 09/07/24 15:00 23:00 07:00 Intake Total 1808 ml 1144 ml 450 ml Output Total 1525 ml 2000 ml Balance 1808 ml -381 ml -1550 ml medications Current Medications Medications Dose Ordered Sig/Akiko Route Start Time Stop Time Status Last Admin Dose Admin Vancomycin HCl 200 ml @ 200 mls/hr Q12HR IV 08/10/24 22:00 UNV Enteral Nutritional Formula 240 ml TIDWM PO 08/20/24 18:00 09/07/24 12:17 240 ML Dextrose 50 ml UD PRN IV 08/21/24 09:30 Diagnostic Test (Pha) 1 strip Q6HR 08/21/24 12:00 Cancel Insulin Human Regular FOLLOW SLIDING SCALE Q6HR SC 08/21/24 12:00 Cancel Dextrose 50 ml UD IV 08/21/24 10:00 Cancel Melatonin 3 mg HS PO 08/22/24 22:00 09/06/24 21:28 3 MG Midodrine 10 mg TID@0600,1200,1800 PO 08/23/24 12:00 09/07/24 12:18 10 MG Diagnostic Test (Pha) 1 strip ACHS 08/25/24 11:30 09/07/24 11:30 1 STRIP Insulin Human Regular ACHS SC 08/25/24 11:30 09/03/24 12:45 2 UNITS Acetaminophen 650 mg Q6HPRN PRN PO 08/25/24 16:00 09/07/24 00:38 650 MG Enteral Nutritional Formula 28.8 gm TID PO 08/26/24 14:00 09/07/24 13:58 28.8 GM Fludrocortisone Acetate 0.1 mg DAILY PO 08/29/24 10:00 09/07/24 09:01 0.1 MG Acetaminophen/ Hydrocodone Bitart 1 tab Q4HPRN PRN PO 08/30/24 11:30 09/07/24 14:00 1 TAB Lactulose 30 ml BIDPRN PRN PO 08/30/24 11:30 09/07/24 09:14 30 ML Morphine Sulfate 1 mg Q4HP PRN IV 08/31/24 08:30 09/01/24 02:35 1 MG Pantoprazole Sodium 40 mg DAILY@0600 PO 09/02/24 06:00 09/07/24 05:47 40 MG Thiamine HCl 100 mg DAILY PO 09/02/24 10:00 09/07/24 09:14 100 MG Folic Acid 1 mg DAILY PO 09/02/24 10:00 09/07/24 09:01 1 MG Multivitamins 1 tab DAILY PO 09/02/24 10:00 09/07/24 09:01 1 TAB Apixaban 5 mg BID PO 09/02/24 22:00 09/07/24 09:03 5 MG Carbidopa/Levodopa 0.5 tab TID PO 09/05/24 14:00 09/07/24 13:59 0.5 TAB Linezolid 600 mg BID PO 09/06/24 10:00 09/07/24 09:01 600 MG laboratory and microbiology Laboratory Tests 09/03/24 09:15 Test 09/03/24 09:15 Range/Units Serum Glucose 106 74-106 mg/dL Microbiology Date/Time Source Procedure Growth Status 08/31/24 09:35 Urine - [place] Urine Culture - Final Complete 08/26/24 15:45 Penis Gram Stain - Final Complete 08/26/24 15:45 Wound Culture - Final Pseudo fluorescence/putida Enterococcus faecium - VRE Presumptive Ema albicans Complete 08/22/24 15:28 Back Lumbar Gram Stain - Final Complete 08/22/24 15:28 Wound Culture - Final Enterococcus faecium - VRE Complete 08/12/24 19:02 Bronchial Washings Gram Stain - Final Resulted 08/12/24 19:02 Respiratory Culture - Preliminary Klebsiella pneumoniae Presumptive Ema albicans Resulted 08/10/24 14:08 Blood Blood Culture - Final NO GROWTH AFTER 5 DAYS OF INCUBATION. Complete Problem List/Assessment/Plan Problem List/Assessment/Plan AFEBRILE VSS BACK AND LEFT GLUTEAL WOUNDS HEALING DRESSING IN PLACE NO COMPLICATIONS CONTINUE SUPPORTIVE CARE NURSE AT BEDSIDE Plan discussed with: Other Dietary Evaluation Review Comments: 1. If on Vent Consider Nepro 30ml/hr x 24 hr,( 58g pro 1274 kcal). this will support pt's needs at 100% protein, 94 % kcal. 2. If EN not possible, and NPO > 7 days, consider TPN per pharmacy. 3. If off Vent, and pass speech eval, offer Renal Specific -50g protein 2g Na 3 K Low phos, 4. If off vent on hemo dialysis, pass speech eval, offer Renal Standard 2 gNa 3 K, Low Phos diet. Expected Outcomes/Goals: advance to diet able to eat independently. IAM GRIER MD Sep 07, 2024 14:56
[2024-09-07 16:58] VITALS: BP 117/63; PULSE 81; RESP 16; TEMP 98; O2SAT 97
[2024-09-07 21:05] VITALS: BP 110/55; PULSE 82; RESP 20; TEMP 98.7; O2SAT 99
--- NOTE | 2024-09-07 22:03 | DVHPN2 ---
Progress Note - Dictate Date Seen: Sep 07, 2024 Medical Necessity Reason Pt with a Central, PICC or Fol: Yes The following are medically ne: Powell Catheter Reason for powell catheter: Strict I&O Subjective Mr. Howard is a 78 years old right-handed gentleman with a history of Parkinson's disease, the patient was admitted on 08/10 24 with a chief company of altered mental status I have seen and examined the patient, I have discussed with his nurse and sitter, he is awake, s oriented to person and place, he knows year, socially appropriate No obvious tremors, but he has cogwheeling in the right hand Respiratory culture, 08/12/2024: Klebsiella pneumoniae Blood culture, 08/10/24: Negative UDS, 08/10/2024: Negative Urinalysis, 08/10/2024: WBC 10, urine leukocyte: Trace WBC/HB/PLT/MCV, 08/20/24: 6.5/10.5/205/88.8 PT/INR/PTT, 08/14/2024: 13.9/1.34/30.9 Na, 08/10/2024: 170, 168, 08/11/2024: 165, 08/12/2024: 164, 08/13/2024: 161, 08/14/2024: 156, 08/19/2024: 149, 08/20/24: 149, 08/23/2023: 142 BUN/CR, 08/18/2024: 45/1.01, 08/20/2024: 42/1.07 CPK, 08/10/2024: 2513, 08/11/2024: 2525, 08/12/2024: 2844, 08/13/2024: 4268, 08/21/2024: 510 TBI/AST/ALT/AP, 08/20/2024: 1.4/148/210/179, 08/23/2024: 08/23/2024: 0.9/61/104/180 Ammonia, 08/23/2024: < 10 Hepatitis panel, 08/11/2024: Negative TSH, 08/11/2024: 4.48 Venous Doppler, lower extremities, 08/13/2024: No left DVT. Positive DVT involving the right lower extremity common femoral vein, femoral vein, popliteal vein and calf Chest x-ray, 08/10/2024: No acute cardiopulmonary disease. Elevation of the left hemidiaphragm. Enteric tube and endotracheal tube are in satisfactory position Chest x-ray, 08/21/2024: Increased congestion CT head, 08/10/2024: 1. No acute intracranial hemorrhage, midline shift or mass effect. 2. Generalized brain atrophy. 3. Small vessel ischemic/degenerative changes. 4. If symptoms persists, further evaluation with MRI is recommended MRI head, 08/19/2024: 1. No evidence of acute intracranial abnormality. 2. Motion limited study vital signs Vital Sign Date Time Temp Pulse Resp B/P (MAP) Pulse Ox O2 Delivery O2 Flow Rate FiO2 09/07/24 21:05 98.7 82 20 110/55 (73) 99 98.7 09/07/24 20:00 Room Air* 0 21 Total Intake and Output 09/06/24 09/06/24 09/07/24 15:00 23:00 07:00 Intake Total 1808 ml 1144 ml 450 ml Output Total 1525 ml 2000 ml Balance 1808 ml -381 ml -1550 ml medications Current Medications Medications Dose Ordered Sig/Akiko Route Start Time Stop Time Status Last Admin Dose Admin Vancomycin HCl 200 ml @ 200 mls/hr Q12HR IV 08/10/24 22:00 UNV Enteral Nutritional Formula 240 ml TIDWM PO 08/20/24 18:00 09/07/24 12:17 240 ML Dextrose 50 ml UD PRN IV 08/21/24 09:30 Diagnostic Test (Pha) 1 strip Q6HR 08/21/24 12:00 Cancel Insulin Human Regular FOLLOW SLIDING SCALE Q6HR SC 08/21/24 12:00 Cancel Dextrose 50 ml UD IV 08/21/24 10:00 Cancel Melatonin 3 mg HS PO 08/22/24 22:00 09/07/24 21:21 3 MG Midodrine 10 mg TID@0600,1200,1800 PO 08/23/24 12:00 09/07/24 18:10 10 MG Diagnostic Test (Pha) 1 strip ACHS 08/25/24 11:30 09/07/24 11:30 1 STRIP Insulin Human Regular ACHS SC 08/25/24 11:30 09/03/24 12:45 2 UNITS Acetaminophen 650 mg Q6HPRN PRN PO 08/25/24 16:00 09/07/24 00:38 650 MG Enteral Nutritional Formula 28.8 gm TID PO 08/26/24 14:00 09/07/24 21:19 28.8 GM Fludrocortisone Acetate 0.1 mg DAILY PO 08/29/24 10:00 09/07/24 09:01 0.1 MG Acetaminophen/ Hydrocodone Bitart 1 tab Q4HPRN PRN PO 08/30/24 11:30 09/07/24 19:51 1 TAB Lactulose 30 ml BIDPRN PRN PO 08/30/24 11:30 09/07/24 09:14 30 ML Morphine Sulfate 1 mg Q4HP PRN IV 08/31/24 08:30 09/01/24 02:35 1 MG Pantoprazole Sodium 40 mg DAILY@0600 PO 09/02/24 06:00 09/07/24 05:47 40 MG Thiamine HCl 100 mg DAILY PO 09/02/24 10:00 09/07/24 09:14 100 MG Folic Acid 1 mg DAILY PO 09/02/24 10:00 09/07/24 09:01 1 MG Multivitamins 1 tab DAILY PO 09/02/24 10:00 09/07/24 09:01 1 TAB Apixaban 5 mg BID PO 09/02/24 22:00 09/07/24 21:22 5 MG Carbidopa/Levodopa 0.5 tab TID PO 09/05/24 14:00 09/07/24 21:18 0.5 TAB Linezolid 600 mg BID PO 09/06/24 10:00 09/07/24 21:22 600 MG objective General: the patient is well developed and nourished. No acute distress. MENTAL STATUS: Subjective SPEECH, LANGUAGE, HIGHER CORTICAL FUNCTION: no aphasia or dysathria. CRANIAL NERVES: Pupils are equal, round and reactive. EOMs full and conjugate. No nystagmus. Facial sensation intact in all three divisions bilaterally. Mandibular strength intact. Facial muscles symmetrical and strength intact. SENSATION: Sensation to touch and pinprick is Ok MOTOR: Normal muscle bulk. No fasciculations. He moves the arms REFLEXES: Deep tendon reflexes normal and symmetrical. No pathological reflexes. CEREBELLAR/COORDINATION: Deferred GAIT/STATION: deferred laboratory and microbiology Laboratory Tests 09/03/24 09:15 Test 09/03/24 09:15 Range/Units Serum Glucose 106 74-106 mg/dL Problem List Altered mental status/metabolic encephalopathy secondary to Sepsis Septic shock Respiratory failure Urinary tract infection Dehydration Acute kidney failure Hypernatremia ? Levodopa side effects Rhabdomyolysis Hand tremors, gait disturbance, low voice Parkinson's disease Rule out essential tremor Pressure sores DVT Assessment/Plan Monitoring Supportive treatment Oxygen IV antiepileptics Hydration Eliquis 5 mg b.i.d. Sinemet 25/100, 0.5 tablets, t.i.d. Midodrine Current pain management Okay to use Tylenol for pain control Wound care DVT prophylaxis GI prophylaxis Pulmonary on case Nephrology on case Surgery on case More recommendation per clinical course This medical document was created using an electronic medical record system with [employer] dictation system. Although this document has been carefully reviewed, there may still be some phonetic and typographical errors. These areas are purely typographical due to imperfections of the software programs, and do not reflect any compromise in the patient's medical care Prognosis poor Dietary Evaluation Review Comments: 1. If on Vent Consider Nepro 30ml/hr x 24 hr,( 58g pro 1274 kcal). this will support pt's needs at 100% protein, 94 % kcal. 2. If EN not possible, and NPO > 7 days, consider TPN per pharmacy. 3. If off Vent, and pass speech eval, offer Renal Specific -50g protein 2g Na 3 K Low phos, 4. If off vent on hemo dialysis, pass speech eval, offer Renal Standard 2 gNa 3 K, Low Phos diet. Expected Outcomes/Goals: advance to diet able to eat independently. Plan discussed with: Other EVELINE HUNTER MD Sep 07, 2024 22:03
--- NOTE | 2024-09-07 23:00 | DVHPN2 ---
Progress Note - Dictate Date Seen: Sep 07, 2024 Medical Necessity Reason Pt with a Central, PICC or Fol: Yes The following are medically ne: Powell Catheter Reason for powell catheter: Strict I&O Subjective Patient seen and examined at bedside. Breathing on room air. Overnight events reviewed. vital signs Vital Sign Date Time Temp Pulse Resp B/P (MAP) Pulse Ox O2 Delivery O2 Flow Rate FiO2 09/07/24 21:05 98.7 82 20 110/55 (73) 99 98.7 09/07/24 20:00 Room Air* 0 21 Total Intake and Output 09/06/24 09/06/24 09/07/24 15:00 23:00 07:00 Intake Total 1808 ml 1144 ml 450 ml Output Total 1525 ml 2000 ml Balance 1808 ml -381 ml -1550 ml medications Current Medications Medications Dose Ordered Sig/Akiko Route Start Time Stop Time Status Last Admin Dose Admin Vancomycin HCl 200 ml @ 200 mls/hr Q12HR IV 08/10/24 22:00 UNV Enteral Nutritional Formula 240 ml TIDWM PO 08/20/24 18:00 09/07/24 12:17 240 ML Dextrose 50 ml UD PRN IV 08/21/24 09:30 Diagnostic Test (Pha) 1 strip Q6HR 08/21/24 12:00 Cancel Insulin Human Regular FOLLOW SLIDING SCALE Q6HR SC 08/21/24 12:00 Cancel Dextrose 50 ml UD IV 08/21/24 10:00 Cancel Melatonin 3 mg HS PO 08/22/24 22:00 09/07/24 21:21 3 MG Midodrine 10 mg TID@0600,1200,1800 PO 08/23/24 12:00 09/07/24 18:10 10 MG Diagnostic Test (Pha) 1 strip ACHS 08/25/24 11:30 09/07/24 22:00 1 STRIP Insulin Human Regular ACHS SC 08/25/24 11:30 09/03/24 12:45 2 UNITS Acetaminophen 650 mg Q6HPRN PRN PO 08/25/24 16:00 09/07/24 00:38 650 MG Enteral Nutritional Formula 28.8 gm TID PO 08/26/24 14:00 09/07/24 21:19 28.8 GM Fludrocortisone Acetate 0.1 mg DAILY PO 08/29/24 10:00 09/07/24 09:01 0.1 MG Acetaminophen/ Hydrocodone Bitart 1 tab Q4HPRN PRN PO 08/30/24 11:30 09/07/24 19:51 1 TAB Lactulose 30 ml BIDPRN PRN PO 08/30/24 11:30 09/07/24 09:14 30 ML Morphine Sulfate 1 mg Q4HP PRN IV 08/31/24 08:30 09/01/24 02:35 1 MG Pantoprazole Sodium 40 mg DAILY@0600 PO 09/02/24 06:00 09/07/24 05:47 40 MG Thiamine HCl 100 mg DAILY PO 09/02/24 10:00 09/07/24 09:14 100 MG Folic Acid 1 mg DAILY PO 09/02/24 10:00 09/07/24 09:01 1 MG Multivitamins 1 tab DAILY PO 09/02/24 10:00 09/07/24 09:01 1 TAB Apixaban 5 mg BID PO 09/02/24 22:00 09/07/24 21:22 5 MG Carbidopa/Levodopa 0.5 tab TID PO 09/05/24 14:00 09/07/24 21:18 0.5 TAB Linezolid 600 mg BID PO 09/06/24 10:00 09/07/24 21:22 600 MG objective Gen.: Patient lying in bed in no apparent distress. Breathing on room air. Head: Normocephalic, atraumatic. Eyes: EOMI/PERRLA. Ears: Normal hearing. Normal anatomy. Neck/trachea: Trachea midline, supple. Nose: Normal external anatomy. Mouth: Moist mucous membranes. Chest: Decreased air entry bilaterally. No wheezing or rhonchi. Cardiovascular: Positive S1, positive S2. Regular rate and rhythm. Abdomen: Positive bowel sounds in all 4 quadrants. Soft, non-tender, non- distended. : Deferred. Rectal: Deferred. Skin: Warm, dry. Intact. Extremities: 2+ radial pulses bilaterally. No lower extremity edema. Neuro: Awake, alert, oriented x3. No gross motor or sensory deficits. Cranial nerves II through XII intact. Gait not assessed. laboratory and microbiology Laboratory Tests 09/03/24 09:15 Test 09/03/24 09:15 Range/Units Serum Glucose 106 74-106 mg/dL Assessment/Plan Impression: Acute hypoxic respiratory failure Leukocytosis Hypernatremia Parkinson's disease Acute metabolic encephalopathy Decubitus ulcers Sepsis Rhabdomyolysis Acute kidney injury Events: Remains on room air. No respiratory distress. Continue wound care Discontinue PICC line. Head of bed elevation Aspiration precautions Continue midodrine 10 mg TID Continue PO antibiotics Incentive spirometry Monitor hemoglobin Accu-Cheks for glycemic monitoring Nutritional support Monitor renal function Powell in place - monitor ins and outs Plan for SNF placement in . Disposition per hospitalist. Labs and imaging reviewed. Rest of plan as noted below. Plan: S/p extubation 08/15/24 Breathing on room air. Supplemental O2 PRN. CT head: No acute intracranial hemorrhage or stroke. Pressors if necessary for hemodynamic support Titrate to keep MAP above 65 mmHg/SBP above 90 mmHg. Antibiotics. Monitor hemoglobin Head of bed elevation Aspiration precautions Monitor renal function due to Acute kidney injury. Monitor electrolytes. Supplement as necessary. Monitor sodium due to hypernatremia IV fluid hydration Do not over correct sodium. Sodium 136 (08/29/24) Nutritional support. Accu-Cheks, ISS. GI prophylaxis - Protonix DVT prophylaxis. Prognosis: Guarded given multiple comorbidities. Rest of plan per hospitalist and other consultants. Thank you Dr. Newman for allowing me to participate in this patient's care. Further recommendations will depend on patient's clinical course. Please do not hesitate to contact me if you have any questions or concerns. This medical document was created using an electronic medical record system with [employer] dictation system. Although this document has been carefully reviewed, there may still be some phonetic and typographical errors. These areas are purely typographical due to imperfections of the software programs, and do not reflect any compromise in the patient's medical care. Dietary Evaluation Review Comments: 1. If on Vent Consider Nepro 30ml/hr x 24 hr,( 58g pro 1274 kcal). this will support pt's needs at 100% protein, 94 % kcal. 2. If EN not possible, and NPO > 7 days, consider TPN per pharmacy. 3. If off Vent, and pass speech eval, offer Renal Specific -50g protein 2g Na 3 K Low phos, 4. If off vent on hemo dialysis, pass speech eval, offer Renal Standard 2 gNa 3 K, Low Phos diet. Expected Outcomes/Goals: advance to diet able to eat independently. Plan discussed with: Patient, Other ([employer]) REY REAGAN MD Sep 07, 2024 23:00
[2024-09-08] VITALS (7 sets, daily range): BP systolic 43–134; BP diastolic 43–68; PULSE 78–97; RESP 18–20; TEMP 97.6–98.7; O2SAT 89–100
--- NOTE | 2024-09-08 12:45 | DVHPN2 ---
Subjective More alert No new complaints Reviewed: Care Plan, H&P, Labs, Medications, Previous Orders, Radiology, Other (Consultants) Changes from previous H/P or p: Changes General: Per HPI Objective Vitals Vital Signs Date Time Temp Pulse Resp B/P (MAP) Pulse Ox O2 Delivery O2 Flow Rate FiO2 09/08/24 08:50 98.4 83 18 89/43 (58) 99 98.4 09/08/24 08:00 Room Air* 0 21 Intake/Output Intake and Output 09/08/24 07:00 Intake Total 2350 ml Output Total 2300 ml Balance 50 ml Intake Oral 2350 ml Output Urine Total 2300 ml General Appearance: Alert, Oriented X3, Cooperative, No acute distress HEENT: Atraumatic, PERRLA Lungs: Clear to auscultation, Normal air movement Cardiovascular: Regular rate, Normal S1, Normal S2 Abdomen: Normal bowel sounds, Soft, No tenderness Musculoskeletal: Weak motor strength RUE, Weak motor strength LUE, Weak motor strength RLE, Weak motor strength LLE Extremities: Other Skin: Wounds Psych/Mental Status: Other Medications Current Medications Medications Dose Ordered Sig/Akiko Route Start Time Stop Time Status Last Admin Dose Admin Vancomycin HCl 200 ml @ 200 mls/hr Q12HR IV 08/10/24 22:00 UNV Enteral Nutritional Formula 240 ml TIDWM PO 08/20/24 18:00 09/08/24 08:00 240 ML Diagnostic Test (Pha) 1 strip Q6HR 08/21/24 12:00 Cancel Insulin Human Regular FOLLOW SLIDING SCALE Q6HR SC 08/21/24 12:00 Cancel Dextrose 50 ml UD IV 08/21/24 10:00 Cancel Melatonin 3 mg HS PO 08/22/24 22:00 09/07/24 21:21 3 MG Midodrine 10 mg TID@0600,1200,1800 PO 08/23/24 12:00 09/08/24 05:52 10 MG Acetaminophen 650 mg Q6HPRN PRN PO 08/25/24 16:00 09/07/24 00:38 650 MG Enteral Nutritional Formula 28.8 gm TID PO 08/26/24 14:00 09/08/24 05:52 28.8 GM Fludrocortisone Acetate 0.1 mg DAILY PO 08/29/24 10:00 09/08/24 10:37 0.1 MG Acetaminophen/ Hydrocodone Bitart 1 tab Q4HPRN PRN PO 08/30/24 11:30 09/07/24 19:51 1 TAB Lactulose 30 ml BIDPRN PRN PO 08/30/24 11:30 09/08/24 05:52 30 ML Morphine Sulfate 1 mg Q4HP PRN IV 08/31/24 08:30 09/01/24 02:35 1 MG Pantoprazole Sodium 40 mg DAILY@0600 PO 09/02/24 06:00 09/08/24 05:52 40 MG Thiamine HCl 100 mg DAILY PO 09/02/24 10:00 09/08/24 10:37 100 MG Folic Acid 1 mg DAILY PO 09/02/24 10:00 09/08/24 10:36 1 MG Multivitamins 1 tab DAILY PO 09/02/24 10:00 09/08/24 10:37 1 TAB Apixaban 5 mg BID PO 09/02/24 22:00 09/08/24 10:37 5 MG Carbidopa/Levodopa 0.5 tab TID PO 09/05/24 14:00 09/08/24 05:52 0.5 TAB Linezolid 600 mg BID PO 09/06/24 10:00 09/08/24 10:38 600 MG Laboratory Results Laboratory Tests 09/03/24 09:15 Urinalysis Test 08/11/24 13:02 Urine Color Yellow (Yellow) Urine Clarity Turbid (Clear) H Urine pH 5.5 (5.0-9.0) Urine Specific [place] 1.018 (1.001-1.035) Urine Protein 1+ (Negative) H Urine Ketones Negative (Negative) Urine Blood 3+ /uL (Negative) H Urine Nitrite Negative (Negative) Urine Bilirubin Negative (Negative) Urine Urobilinogen 4 mg/dL (Negative) H Urine Leukocyte Esterase 1+ /uL (Negative) Urine RBC 13 /hpf (0 - 3) Urine WBC 14 /hpf (0 - 3) Urine Squamous Epithelial Cells Few /hpf (<5) Urine Bacteria Few /hpf (None Seen) H Urine Hyaline Casts Few /lpf (0 - 2) Urine Granular Casts Few /lpf (0) Urine Mucus Few (None Seen) Urine Creatinine 67.44 mg/dL (30.0-125.0) Urine Protein/Creatinine Ratio 1.00 Urine Sodium 32 mmol/L (40-220) L Urine Glucose Normal mg/dL (Normal) Urine Total Protein 67.3 mg/dL (1-14) H Microbiology Microbiology Date/Time Source Procedure Growth Status 08/31/24 09:35 Urine - [place] Urine Culture - Final Complete 08/26/24 15:45 Penis Gram Stain - Final Complete 08/26/24 15:45 Wound Culture - Final Pseudo fluorescence/putida Enterococcus faecium - VRE Presumptive Ema albicans Complete 08/22/24 15:28 Back Lumbar Gram Stain - Final Complete 08/22/24 15:28 Wound Culture - Final Enterococcus faecium - VRE Complete 08/12/24 19:02 Bronchial Washings Gram Stain - Final Resulted 08/12/24 19:02 Respiratory Culture - Preliminary Klebsiella pneumoniae Presumptive Ema albicans Resulted 08/10/24 14:08 Blood Blood Culture - Final NO GROWTH AFTER 5 DAYS OF INCUBATION. Complete Assessment/Plan Assessment/Plan Sepsis with septic shock Metabolic encephalopathy, Wound infection of left buttock and back Parkinson's disease R leg DVT Hypernatremia: resolved DAYLIN: Better Respiratory failure: Better PLAN: 08/31/24: IV antibiotics: Zyvox, add Meropenem, consult ID Levophkendal [email or web address] to do I$D for wound IV fluids: LR Sinemet Nutritional supplements Midodrine Florinef Small dose morphine for pain NPO for possible surgery today 09/01/24: Downgrade to Tele Physical therapy Wound care LR Zyvox Meropenem Sinemet Midodrine Florinef Vitamins 09/03/24: Physical therapy Wound care Zyvox Out of bed as tolerated 09/04/24: Continue PT Arrange SNF 09/06/24: Change meds to PO Zyvox 600 mg bid po DC Meropenem DC IV fluids DC to SNF once a bed is available 09/07/24: Continue current treatment pending discharge to SNF Continue physical therapy 09/08/24: Continue same management pending discharge to SNF Continue physical therapy The patient is doing well and advancing with physical therapy however he is still very weak and needs to go to do rehab Plan discussed with: Patient, Daughter, Other My Orders Orders - JELENA GAINES MD Procedure Category Date Status Time Discontinue Tele JOHN 09/07/24 In Process 15:04 Mrsa Screen SHERMAN 09/07/24 In Process 16:43 Date of Service: Sep 08, 2024 Billing Provider: JELENA GAINES MD Common Visit Codes: NOT BILLABLE JELENA GAINES MD Sep 08, 2024 12:45
--- NOTE | 2024-09-08 21:33 | DVHPN2 ---
Progress Note - Dictate Date Seen: Sep 08, 2024 Medical Necessity Reason Pt with a Central, PICC or Fol: Yes The following are medically ne: Powell Catheter Reason for pwoell catheter: Strict I&O Subjective Patient seen and examined at bedside. Breathing on room air. Overnight events reviewed. vital signs Vital Sign Date Time Temp Pulse Resp B/P (MAP) Pulse Ox O2 Delivery O2 Flow Rate FiO2 09/08/24 17:00 97.6 97 18 134/68 (90) 98 97.6 09/08/24 08:00 Room Air* 0 21 Total Intake and Output 09/07/24 09/07/24 09/08/24 15:00 23:00 07:00 Intake Total 1610 ml 740 ml Output Total 1600 ml 700 ml Balance 10 ml 40 ml medications Current Medications Medications Dose Ordered Sig/Akiko Route Start Time Stop Time Status Last Admin Dose Admin Vancomycin HCl 200 ml @ 200 mls/hr Q12HR IV 08/10/24 22:00 UNV Enteral Nutritional Formula 240 ml TIDWM PO 08/20/24 18:00 09/08/24 18:00 240 ML Diagnostic Test (Pha) 1 strip Q6HR 08/21/24 12:00 Cancel Insulin Human Regular FOLLOW SLIDING SCALE Q6HR SC 08/21/24 12:00 Cancel Dextrose 50 ml UD IV 08/21/24 10:00 Cancel Melatonin 3 mg HS PO 08/22/24 22:00 09/07/24 21:21 3 MG Midodrine 10 mg TID@0600,1200,1800 PO 08/23/24 12:00 09/08/24 18:20 10 MG Acetaminophen 650 mg Q6HPRN PRN PO 08/25/24 16:00 09/07/24 00:38 650 MG Enteral Nutritional Formula 28.8 gm TID PO 08/26/24 14:00 09/08/24 13:43 28.8 GM Fludrocortisone Acetate 0.1 mg DAILY PO 08/29/24 10:00 09/08/24 10:37 0.1 MG Acetaminophen/ Hydrocodone Bitart 1 tab Q4HPRN PRN PO 08/30/24 11:30 09/07/24 19:51 1 TAB Lactulose 30 ml BIDPRN PRN PO 08/30/24 11:30 09/08/24 05:52 30 ML Morphine Sulfate 1 mg Q4HP PRN IV 08/31/24 08:30 09/01/24 02:35 1 MG Pantoprazole Sodium 40 mg DAILY@0600 PO 09/02/24 06:00 09/08/24 05:52 40 MG Thiamine HCl 100 mg DAILY PO 09/02/24 10:00 09/08/24 10:37 100 MG Folic Acid 1 mg DAILY PO 09/02/24 10:00 09/08/24 10:36 1 MG Multivitamins 1 tab DAILY PO 09/02/24 10:00 09/08/24 10:37 1 TAB Apixaban 5 mg BID PO 09/02/24 22:00 09/08/24 10:37 5 MG Carbidopa/Levodopa 0.5 tab TID PO 09/05/24 14:00 09/08/24 13:42 0.5 TAB Linezolid 600 mg BID PO 09/06/24 10:00 09/08/24 10:38 600 MG objective Gen.: Patient lying in bed in no apparent distress. Breathing on room air. Head: Normocephalic, atraumatic. Eyes: EOMI/PERRLA. Ears: Normal hearing. Normal anatomy. Neck/trachea: Trachea midline, supple. Nose: Normal external anatomy. Mouth: Moist mucous membranes. Chest: Decreased air entry bilaterally. No wheezing or rhonchi. Cardiovascular: Positive S1, positive S2. Regular rate and rhythm. Abdomen: Positive bowel sounds in all 4 quadrants. Soft, non-tender, non- distended. : Deferred. Rectal: Deferred. Skin: Warm, dry. Intact. Extremities: 2+ radial pulses bilaterally. No lower extremity edema. Neuro: Awake, alert, oriented x3. No gross motor or sensory deficits. Cranial nerves II through XII intact. Gait not assessed. laboratory and microbiology Laboratory Tests 09/03/24 09:15 Test 09/03/24 09:15 Range/Units Serum Glucose 106 74-106 mg/dL Assessment/Plan Impression: Acute hypoxic respiratory failure Leukocytosis Hypernatremia Parkinson's disease Acute metabolic encephalopathy Decubitus ulcers Sepsis Rhabdomyolysis Acute kidney injury Events: Remains on room air. No respiratory distress. Continue wound care Head of bed elevation Aspiration precautions Continue bronchodilators On Florinef Continue vitamin supplementation Continue PO antibiotics Incentive spirometry Continue midodrine 10 mg TID Monitor hemoglobin Accu-Cheks for glycemic monitoring Nutritional support Monitor renal function Powell in place - monitor ins and outs Awaiting SNF placement in [place]. Disposition per hospitalist. Labs and imaging reviewed. Rest of plan as noted below. Plan: S/p extubation 08/15/24 Breathing on room air. Supplemental O2 PRN. CT head: No acute intracranial hemorrhage or stroke. Pressors if necessary for hemodynamic support Titrate to keep MAP above 65 mmHg/SBP above 90 mmHg. Antibiotics. Monitor hemoglobin Head of bed elevation Aspiration precautions Monitor renal function due to Acute kidney injury. Monitor electrolytes. Supplement as necessary. Monitor sodium due to hypernatremia IV fluid hydration Do not over correct sodium. Sodium 136 (08/29/24) Nutritional support. Accu-Cheks, ISS. GI prophylaxis - Protonix DVT prophylaxis. Prognosis: Guarded given multiple comorbidities. Rest of plan per hospitalist and other consultants. Thank you Dr. Newman for allowing me to participate in this patient's care. Further recommendations will depend on patient's clinical course. Please do not hesitate to contact me if you have any questions or concerns. This medical document was created using an electronic medical record system with [employer] dictation system. Although this document has been carefully reviewed, there may still be some phonetic and typographical errors. These areas are purely typographical due to imperfections of the software programs, and do not reflect any compromise in the patient's medical care. Dietary Evaluation Review Comments: 1. If on Vent Consider Nepro 30ml/hr x 24 hr,( 58g pro 1274 kcal). this will support pt's needs at 100% protein, 94 % kcal. 2. If EN not possible, and NPO > 7 days, consider TPN per pharmacy. 3. If off Vent, and pass speech eval, offer Renal Specific -50g protein 2g Na 3 K Low phos, 4. If off vent on hemo dialysis, pass speech eval, offer Renal Standard 2 gNa 3 K, Low Phos diet. Expected Outcomes/Goals: advance to diet able to eat independently. Plan discussed with: Patient, Other ([employer]) REY REAGAN MD Sep 08, 2024 21:33
[2024-09-09] VITALS (7 sets, daily range): BP systolic 95–120; BP diastolic 47–64; PULSE 16–94; RESP 16–18; TEMP 97.5–98.5; O2SAT 91–100
[2024-09-09 05:34] LABS: Basophils # (auto) 0 10 ^3/uL (0-0.2); Basophils % (auto) 0.8 % (0.0-2.0); Eosinophils # (auto) 0.1 10 ^3/uL (0-0.8); Eosinophils % (auto) 1.6 % (0.0-7.0); Hematocrit 26.9 % (41.0-53.0); Hemoglobin 9.3 g/dL (13.5-17.5); Lymphocytes # (auto) 1.7 10 ^3/uL (0.4-5.4); Lymphocytes % (auto) 34.6 % (10.0-50.0); Mean Corpuscular Hemoglobin 30.6 pg (28.0-32.0); Mean Corpuscular Hgb Conc. 34.6 g/dL (32.0-36.0); Mean Corpuscular Volume 88.6 fL (80.0-100.0); Monocytes # (auto) 0.4 10 ^3/uL (0-1.3); Monocytes % (auto) 8.5 % (0.0-12.0); Neutrophils # (auto) 2.6 10 ^3/uL (1.6-8.6); Neutrophils % (auto) 54.5 % (37.0-80.0); Nucleated Red Blood Cells % 0.1 %; Platelet Count (auto) 195 10^3/uL (140-450); Red Blood Cells 3.03 10^6/uL (4.5-5.90); Red Cell Distribution Width 13.6 % (11.8-14.3); White Blood Cell 4.8 10^3/uL (4.4-10.8)
[2024-09-09 05:51] LABS: Alanine Aminotransferase 13 U/L (7-40); Anion Gap 4 (5-15); Aspartate Aminotransferase 32 U/L (13-40); Calcium 8.8 mg/dL (8.7-10.4); Carbon Dioxide 29 mmol/L (20-31); Chloride 103 mmol/L (98-107); Glucose 88 mg/dL (74-106); Magnesium 1.8 mg/dL (1.6-2.6); Potassium 3.9 mmol/L (3.5-5.1); Sodium 136 mmol/L (136-145)
[2024-09-09 05:52] LABS: Bilirubin, Total 0.6 mg/dL (0.2-1.0); Total Protein 5.8 g/dL (5.7-8.2)
[2024-09-09 06:02] LABS: Alkaline Phosphatase 198 U/L (46-116)
[2024-09-09 06:06] LABS: BUN/Creatinine Ratio 42.3 (10.0-20.0)
[2024-09-09 06:08] LABS: Blood Urea Nitrogen 30 mg/dL (9-23)
--- NOTE | 2024-09-09 10:08 | DVHPN2 ---
Subjective More alert No new complaints Reviewed: Care Plan, H&P, Labs, Medications, Previous Orders, Radiology, Other (Consultants) Changes from previous H/P or p: Changes General: Per HPI Objective Vitals Vital Signs Date Time Temp Pulse Resp B/P (MAP) Pulse Ox O2 Delivery O2 Flow Rate FiO2 09/09/24 05:00 98.5 94 18 120/64 (82) 98 98.5 09/08/24 19:45 Room Air* 0 21 Intake/Output Intake and Output 09/09/24 07:00 Intake Total 2790 ml Output Total 2302 ml Balance 488 ml Intake Oral 2790 ml Output Urine Total 2300 ml Stool Total 2 ml General Appearance: Alert, Oriented X3, Cooperative, No acute distress HEENT: Atraumatic, PERRLA Lungs: Clear to auscultation, Normal air movement Cardiovascular: Regular rate, Normal S1, Normal S2 Abdomen: Normal bowel sounds, Soft, No tenderness Musculoskeletal: Weak motor strength RUE, Weak motor strength LUE, Weak motor strength RLE, Weak motor strength LLE Extremities: Other Skin: Wounds Psych/Mental Status: Other Medications Current Medications Medications Dose Ordered Sig/Akiko Route Start Time Stop Time Status Last Admin Dose Admin Vancomycin HCl 200 ml @ 200 mls/hr Q12HR IV 08/10/24 22:00 UNV Enteral Nutritional Formula 240 ml TIDWM PO 08/20/24 18:00 09/09/24 08:49 240 ML Diagnostic Test (Pha) 1 strip Q6HR 08/21/24 12:00 Cancel Insulin Human Regular FOLLOW SLIDING SCALE Q6HR SC 08/21/24 12:00 Cancel Dextrose 50 ml UD IV 08/21/24 10:00 Cancel Melatonin 3 mg HS PO 08/22/24 22:00 09/08/24 22:30 3 MG Midodrine 10 mg TID@0600,1200,1800 PO 08/23/24 12:00 09/09/24 05:40 10 MG Acetaminophen 650 mg Q6HPRN PRN PO 08/25/24 16:00 09/07/24 00:38 650 MG Enteral Nutritional Formula 28.8 gm TID PO 08/26/24 14:00 09/09/24 05:40 28.8 GM Fludrocortisone Acetate 0.1 mg DAILY PO 08/29/24 10:00 09/09/24 10:00 0.1 MG Acetaminophen/ Hydrocodone Bitart 1 tab Q4HPRN PRN PO 08/30/24 11:30 09/07/24 19:51 1 TAB Lactulose 30 ml BIDPRN PRN PO 08/30/24 11:30 09/08/24 05:52 30 ML Morphine Sulfate 1 mg Q4HP PRN IV 08/31/24 08:30 09/01/24 02:35 1 MG Pantoprazole Sodium 40 mg DAILY@0600 PO 09/02/24 06:00 09/09/24 05:40 40 MG Thiamine HCl 100 mg DAILY PO 09/02/24 10:00 09/09/24 09:59 100 MG Folic Acid 1 mg DAILY PO 09/02/24 10:00 09/09/24 09:59 1 MG Multivitamins 1 tab DAILY PO 09/02/24 10:00 09/09/24 09:59 1 TAB Apixaban 5 mg BID PO 09/02/24 22:00 09/09/24 10:00 5 MG Carbidopa/Levodopa 0.5 tab TID PO 09/05/24 14:00 09/09/24 05:40 0.5 TAB Linezolid 600 mg BID PO 09/06/24 10:00 09/09/24 09:58 600 MG Laboratory Results Laboratory Tests 09/09/24 05:12 Chemistry Test 09/09/24 05:12 Albumin 3.0 g/dL (3.2-4.8) L Calcium Level 8.8 mg/dL (8.7-10.4) Magnesium Level 1.8 mg/dL (1.6-2.6) Total Protein 5.8 g/dL (5.7-8.2) LFT Test 09/09/24 05:12 Alanine Aminotransferase (ALT) 13 U/L (7-40) Alkaline Phosphatase 198 U/L (46-116) H Aspartate Amino Transferase (AST) 32 U/L (13-40) Total Bilirubin 0.6 mg/dL (0.2-1.0) Urinalysis Test 08/11/24 13:02 Urine Color Yellow (Yellow) Urine Clarity Turbid (Clear) H Urine pH 5.5 (5.0-9.0) Urine Specific [place] 1.018 (1.001-1.035) Urine Protein 1+ (Negative) H Urine Ketones Negative (Negative) Urine Blood 3+ /uL (Negative) H Urine Nitrite Negative (Negative) Urine Bilirubin Negative (Negative) Urine Urobilinogen 4 mg/dL (Negative) H Urine Leukocyte Esterase 1+ /uL (Negative) Urine RBC 13 /hpf (0 - 3) Urine WBC 14 /hpf (0 - 3) Urine Squamous Epithelial Cells Few /hpf (<5) Urine Bacteria Few /hpf (None Seen) H Urine Hyaline Casts Few /lpf (0 - 2) Urine Granular Casts Few /lpf (0) Urine Mucus Few (None Seen) Urine Creatinine 67.44 mg/dL (30.0-125.0) Urine Protein/Creatinine Ratio 1.00 Urine Sodium 32 mmol/L (40-220) L Urine Glucose Normal mg/dL (Normal) Urine Total Protein 67.3 mg/dL (1-14) H Microbiology Microbiology Date/Time Source Procedure Growth Status 09/07/24 18:00 Nose MRSA Screen - Final Complete 08/31/24 09:35 Urine - [place] Urine Culture - Final Complete 08/26/24 15:45 Penis Gram Stain - Final Complete 08/26/24 15:45 Wound Culture - Final Pseudo fluorescence/putida Enterococcus faecium - VRE Presumptive Ema albicans Complete 08/12/24 19:02 Bronchial Washings Gram Stain - Final Resulted 08/12/24 19:02 Respiratory Culture - Preliminary Klebsiella pneumoniae Presumptive Ema albicans Resulted 08/10/24 14:08 Blood Blood Culture - Final NO GROWTH AFTER 5 DAYS OF INCUBATION. Complete Assessment/Plan Assessment/Plan Sepsis with septic shock Metabolic encephalopathy, Wound infection of left buttock and back Parkinson's disease R leg DVT Hypernatremia: resolved DAYLIN: Better Respiratory failure: Better PLAN: 08/31/24: IV antibiotics: Zyvox, add Meropenem, consult ID Levophed kiera German to do I$D for wound IV fluids: LR Sinemet Nutritional supplements Midodrine Florinef Small dose morphine for pain NPO for possible surgery today 09/01/24: Downgrade to Tele Physical therapy Wound care LR Zyvox Meropenem Sinemet Midodrine Florinef Vitamins 09/03/24: Physical therapy Wound care Zyvox Out of bed as tolerated 09/04/24: Continue PT Arrange SNF 09/06/24: Change meds to PO Zyvox 600 mg bid po DC Meropenem DC IV fluids DC to SNF once a bed is available 09/07/24: Continue current treatment pending discharge to SNF Continue physical therapy 09/08/24: Continue same management pending discharge to SNF Continue physical therapy The patient is doing well and advancing with physical therapy however he is still very weak and needs to go to do rehab 09/09/24: No changes Labs: Stable DC to SNF once a bed is available Plan discussed with: Patient, Daughter, Other Date of Service: Sep 09, 2024 Billing Provider: JELENA GAINES MD Common Visit Codes: NOT BILLABLE JELENA GAINES MD Sep 09, 2024 10:08
--- NOTE | 2024-09-09 21:26 | DVHPN2 ---
Progress Note - Dictate Date Seen: Sep 09, 2024 Medical Necessity Reason Pt with a Central, PICC or Fol: Yes The following are medically ne: Powell Catheter Reason for powell catheter: Strict I&O Subjective Mr. Howard is a 78 years old right-handed gentleman with a history of Parkinson's disease, the patient was admitted on 08/10 24 with a chief company of altered mental status I have seen and examined the patient, I have discussed with his nurse and sitter, he is awake, s oriented to person and place, he knows year, , socially appropriate No obvious tremors, but he has cogwheeling in the right hand, possible cogwheeling in the left wrist Respiratory culture, 08/12/2024: Klebsiella pneumoniae Blood culture, 08/10/24: Negative UDS, 08/10/2024: Negative Urinalysis, 08/10/2024: WBC 10, urine leukocyte: Trace WBC/HB/PLT/MCV, 08/20/24: 6.5/10.5/205/88.8 PT/INR/PTT, 08/14/2024: 13.9/1.34/30.9 Na, 08/10/2024: 170, 168, 08/11/2024: 165, 08/12/2024: 164, 08/13/2024: 161, 08/14/2024: 156, 08/19/2024: 149, 08/20/24: 149, 08/23/2023: 142 BUN/CR, 08/18/2024: 45/1.01, 08/20/2024: 42/1.07 CPK, 08/10/2024: 2513, 08/11/2024: 2525, 08/12/2024: 2844, 08/13/2024: 4268, 08/21/2024: 510 TBI/AST/ALT/AP, 08/20/2024: 1.4/148/210/179, 08/23/2024: 08/23/2024: 0.9/61/104/180 Ammonia, 08/23/2024: < 10 Hepatitis panel, 08/11/2024: Negative TSH, 08/11/2024: 4.48 Venous Doppler, lower extremities, 08/13/2024: No left DVT. Positive DVT involving the right lower extremity common femoral vein, femoral vein, popliteal vein and calf Chest x-ray, 08/10/2024: No acute cardiopulmonary disease. Elevation of the left hemidiaphragm. Enteric tube and endotracheal tube are in satisfactory position Chest x-ray, 08/21/2024: Increased congestion CT head, 08/10/2024: 1. No acute intracranial hemorrhage, midline shift or mass effect. 2. Generalized brain atrophy. 3. Small vessel ischemic/degenerative changes. 4. If symptoms persists, further evaluation with MRI is recommended MRI head, 08/19/2024: 1. No evidence of acute intracranial abnormality. 2. Motion limited study vital signs Vital Sign Date Time Temp Pulse Resp B/P (MAP) Pulse Ox O2 Delivery O2 Flow Rate FiO2 09/09/24 16:00 97.5 85 17 103/52 (69) 100 97.5 09/09/24 08:00 Room Air* 0 21 Total Intake and Output 09/08/24 09/08/24 09/09/24 14:59 22:59 06:59 Intake Total 670 ml 1570 ml 550 ml Output Total 1001 ml 1301 ml Balance 670 ml 569 ml -751 ml medications Current Medications Medications Dose Ordered Sig/Akiko Route Start Time Stop Time Status Last Admin Dose Admin Vancomycin HCl 200 ml @ 200 mls/hr Q12HR IV 08/10/24 22:00 UNV Enteral Nutritional Formula 240 ml TIDWM PO 08/20/24 18:00 09/09/24 17:48 240 ML Diagnostic Test (Pha) 1 strip Q6HR 08/21/24 12:00 Cancel Insulin Human Regular FOLLOW SLIDING SCALE Q6HR SC 08/21/24 12:00 Cancel Dextrose 50 ml UD IV 08/21/24 10:00 Cancel Melatonin 3 mg HS PO 08/22/24 22:00 09/08/24 22:30 3 MG Midodrine 10 mg TID@0600,1200,1800 PO 08/23/24 12:00 09/09/24 17:48 10 MG Acetaminophen 650 mg Q6HPRN PRN PO 08/25/24 16:00 09/07/24 00:38 650 MG Enteral Nutritional Formula 28.8 gm TID PO 08/26/24 14:00 09/09/24 14:33 28.8 GM Fludrocortisone Acetate 0.1 mg DAILY PO 08/29/24 10:00 09/09/24 10:00 0.1 MG Acetaminophen/ Hydrocodone Bitart 1 tab Q4HPRN PRN PO 08/30/24 11:30 09/07/24 19:51 1 TAB Lactulose 30 ml BIDPRN PRN PO 08/30/24 11:30 09/08/24 05:52 30 ML Pantoprazole Sodium 40 mg DAILY@0600 PO 09/02/24 06:00 09/09/24 05:40 40 MG Thiamine HCl 100 mg DAILY PO 09/02/24 10:00 09/09/24 09:59 100 MG Folic Acid 1 mg DAILY PO 09/02/24 10:00 09/09/24 09:59 1 MG Multivitamins 1 tab DAILY PO 09/02/24 10:00 09/09/24 09:59 1 TAB Apixaban 5 mg BID PO 09/02/24 22:00 09/09/24 10:00 5 MG Carbidopa/Levodopa 0.5 tab TID PO 09/05/24 14:00 09/09/24 14:32 0.5 TAB Linezolid 600 mg BID PO 09/06/24 10:00 09/09/24 09:58 600 MG objective General: the patient is well developed and nourished. No acute distress. MENTAL STATUS: Subjective SPEECH, LANGUAGE, HIGHER CORTICAL FUNCTION: no aphasia or dysathria. CRANIAL NERVES: Pupils are equal, round and reactive. EOMs full and conjugate. No nystagmus. Facial sensation intact in all three divisions bilaterally. Mandibular strength intact. Facial muscles symmetrical and strength intact. SENSATION: Sensation to touch and pinprick is Ok MOTOR: Normal muscle bulk. No fasciculations. He moves the arms REFLEXES: Deep tendon reflexes normal and symmetrical. No pathological reflexes. CEREBELLAR/COORDINATION: Deferred GAIT/STATION: deferred laboratory and microbiology Laboratory Tests 09/09/24 05:12 Test 09/09/24 05:12 Range/Units Serum Glucose 88 74-106 mg/dL Problem List Altered mental status/metabolic encephalopathy secondary to Sepsis Septic shock Respiratory failure Urinary tract infection Dehydration Acute kidney failure Hypernatremia ? Levodopa side effects Rhabdomyolysis Hand tremors, gait disturbance, low voice Parkinson's disease Rule out essential tremor Pressure sores DVT Assessment/Plan Monitoring Supportive treatment Oxygen IV antiepileptics Hydration Eliquis 5 mg b.i.d. Sinemet 25/100, 0.5 tablets, t.i.d. Midodrine Current pain management Okay to use Tylenol for pain control Wound care DVT prophylaxis GI prophylaxis Pulmonary on case Nephrology on case Surgery on case More recommendation per clinical course This medical document was created using an electronic medical record system with [employer] dictation system. Although this document has been carefully reviewed, there may still be some phonetic and typographical errors. These areas are purely typographical due to imperfections of the software programs, and do not reflect any compromise in the patient's medical care Prognosis poor Dietary Evaluation Review Comments: 1. If on Vent Consider Nepro 30ml/hr x 24 hr,( 58g pro 1274 kcal). this will support pt's needs at 100% protein, 94 % kcal. 2. If EN not possible, and NPO > 7 days, consider TPN per pharmacy. 3. If off Vent, and pass speech eval, offer Renal Specific -50g protein 2g Na 3 K Low phos, 4. If off vent on hemo dialysis, pass speech eval, offer Renal Standard 2 gNa 3 K, Low Phos diet. Expected Outcomes/Goals: advance to diet able to eat independently. Plan discussed with: Other EVELINE HUNTER MD Sep 09, 2024 21:26
--- NOTE | 2024-09-09 22:27 | DVHPN2 ---
Progress Note - Dictate Date Seen: Sep 09, 2024 Medical Necessity Reason Pt with a Central, PICC or Fol: Yes The following are medically ne: Powell Catheter Reason for powell catheter: Strict I&O Subjective Patient seen and examined at bedside. Breathing on room air. Overnight events reviewed. vital signs Vital Sign Date Time Temp Pulse Resp B/P (MAP) Pulse Ox O2 Delivery O2 Flow Rate FiO2 09/09/24 16:00 97.5 85 17 103/52 (69) 100 97.5 09/09/24 08:00 Room Air* 0 21 Total Intake and Output 09/08/24 09/08/24 09/09/24 15:00 23:00 07:00 Intake Total 670 ml 1570 ml 550 ml Output Total 1001 ml 1301 ml Balance 670 ml 569 ml -751 ml medications Current Medications Medications Dose Ordered Sig/Akiko Route Start Time Stop Time Status Last Admin Dose Admin Vancomycin HCl 200 ml @ 200 mls/hr Q12HR IV 08/10/24 22:00 UNV Enteral Nutritional Formula 240 ml TIDWM PO 08/20/24 18:00 09/09/24 17:48 240 ML Diagnostic Test (Pha) 1 strip Q6HR 08/21/24 12:00 Cancel Insulin Human Regular FOLLOW SLIDING SCALE Q6HR SC 08/21/24 12:00 Cancel Dextrose 50 ml UD IV 08/21/24 10:00 Cancel Melatonin 3 mg HS PO 08/22/24 22:00 09/08/24 22:30 3 MG Midodrine 10 mg TID@0600,1200,1800 PO 08/23/24 12:00 09/09/24 17:48 10 MG Acetaminophen 650 mg Q6HPRN PRN PO 08/25/24 16:00 09/07/24 00:38 650 MG Enteral Nutritional Formula 28.8 gm TID PO 08/26/24 14:00 09/09/24 14:33 28.8 GM Fludrocortisone Acetate 0.1 mg DAILY PO 08/29/24 10:00 09/09/24 10:00 0.1 MG Acetaminophen/ Hydrocodone Bitart 1 tab Q4HPRN PRN PO 08/30/24 11:30 09/07/24 19:51 1 TAB Lactulose 30 ml BIDPRN PRN PO 08/30/24 11:30 09/08/24 05:52 30 ML Pantoprazole Sodium 40 mg DAILY@0600 PO 09/02/24 06:00 09/09/24 05:40 40 MG Thiamine HCl 100 mg DAILY PO 09/02/24 10:00 09/09/24 09:59 100 MG Folic Acid 1 mg DAILY PO 09/02/24 10:00 09/09/24 09:59 1 MG Multivitamins 1 tab DAILY PO 09/02/24 10:00 09/09/24 09:59 1 TAB Apixaban 5 mg BID PO 09/02/24 22:00 09/09/24 10:00 5 MG Carbidopa/Levodopa 0.5 tab TID PO 09/05/24 14:00 09/09/24 14:32 0.5 TAB Linezolid 600 mg BID PO 09/06/24 10:00 09/09/24 09:58 600 MG objective Gen.: Patient lying in bed in no apparent distress. Breathing on room air. Head: Normocephalic, atraumatic. Eyes: EOMI/PERRLA. Ears: Normal hearing. Normal anatomy. Neck/trachea: Trachea midline, supple. Nose: Normal external anatomy. Mouth: Moist mucous membranes. Chest: Decreased air entry bilaterally. No wheezing or rhonchi. Cardiovascular: Positive S1, positive S2. Regular rate and rhythm. Abdomen: Positive bowel sounds in all 4 quadrants. Soft, non-tender, non- distended. : Deferred. Rectal: Deferred. Skin: Warm, dry. Intact. Extremities: 2+ radial pulses bilaterally. No lower extremity edema. Neuro: Awake, alert, oriented x3. No gross motor or sensory deficits. Cranial nerves II through XII intact. Gait not assessed. laboratory and microbiology Laboratory Tests 09/09/24 05:12 Test 09/09/24 05:12 Range/Units Serum Glucose 88 74-106 mg/dL Assessment/Plan Impression: Acute hypoxic respiratory failure Leukocytosis Hypernatremia Parkinson's disease Acute metabolic encephalopathy Decubitus ulcers Sepsis Rhabdomyolysis Acute kidney injury Events: Remains on room air. No respiratory distress. Continue wound care Head of bed elevation Aspiration precautions Supportive care Continue bronchodilators PRN On Florinef Continue vitamin supplementation Continue PO antibiotics Incentive spirometry Continue midodrine 10 mg TID Monitor hemoglobin Accu-Cheks for glycemic monitoring Nutritional support Monitor renal function Powell in place - monitor ins and outs Awaiting SNF placement in [place]. Disposition per hospitalist. Labs and imaging reviewed. Rest of plan as noted below. Plan: S/p extubation 08/15/24 Breathing on room air. Supplemental O2 PRN. CT head: No acute intracranial hemorrhage or stroke. Pressors if necessary for hemodynamic support Titrate to keep MAP above 65 mmHg/SBP above 90 mmHg. Antibiotics. Monitor hemoglobin Head of bed elevation Aspiration precautions Monitor renal function due to Acute kidney injury. Monitor electrolytes. Supplement as necessary. Monitor sodium due to hypernatremia IV fluid hydration Do not over correct sodium. Sodium 136 (08/29/24) Nutritional support. Accu-Cheks, ISS. GI prophylaxis - Protonix DVT prophylaxis. Prognosis: Guarded given multiple comorbidities. Rest of plan per hospitalist and other consultants. Thank you Dr. Newman for allowing me to participate in this patient's care. Further recommendations will depend on patient's clinical course. Please do not hesitate to contact me if you have any questions or concerns. This medical document was created using an electronic medical record system with [employer] dictation system. Although this document has been carefully reviewed, there may still be some phonetic and typographical errors. These areas are purely typographical due to imperfections of the software programs, and do not reflect any compromise in the patient's medical care. Dietary Evaluation Review Comments: 1. If on Vent Consider Nepro 30ml/hr x 24 hr,( 58g pro 1274 kcal). this will support pt's needs at 100% protein, 94 % kcal. 2. If EN not possible, and NPO > 7 days, consider TPN per pharmacy. 3. If off Vent, and pass speech eval, offer Renal Specific -50g protein 2g Na 3 K Low phos, 4. If off vent on hemo dialysis, pass speech eval, offer Renal Standard 2 gNa 3 K, Low Phos diet. Expected Outcomes/Goals: advance to diet able to eat independently. Plan discussed with: Patient, Other (SRAVANI Tolliver) REY REAGAN MD Sep 09, 2024 22:27
[2024-09-10] VITALS (8 sets, daily range): BP systolic 78–118; BP diastolic 46–61; PULSE 80–85; RESP 17–18; TEMP 97.5–98.6; O2SAT 97–100
--- NOTE | 2024-09-10 12:38 | DVHPN2 ---
Reviewed: Care Plan, H&P, Labs, Medications, Previous Orders, Radiology, Other (Consultants) Changes from previous H/P or p: No Changes General: Per HPI Objective Vitals Vital Signs Date Time Temp Pulse Resp B/P (MAP) Pulse Ox O2 Delivery O2 Flow Rate FiO2 09/10/24 09:05 82 110/57 (74) 09/10/24 08:52 98.0 18 99 98.0 09/10/24 08:00 Room Air* 0 21 Intake/Output Intake and Output 09/10/24 07:00 Intake Total 1660 ml Output Total 2070 ml Balance -410 ml Intake Oral 1660 ml Output Urine Total 2070 ml # Bowel Movements 1 General Appearance: Alert, Oriented X3, Cooperative, No acute distress HEENT: Atraumatic, PERRLA Lungs: Clear to auscultation, Normal air movement Cardiovascular: Regular rate, Normal S1, Normal S2 Abdomen: Normal bowel sounds, Soft, No tenderness Musculoskeletal: Weak motor strength RUE, Weak motor strength LUE, Weak motor strength RLE, Weak motor strength LLE Extremities: Other Skin: Wounds Psych/Mental Status: Other Medications Current Medications Medications Dose Ordered Sig/Akiko Route Start Time Stop Time Status Last Admin Dose Admin Vancomycin HCl 200 ml @ 200 mls/hr Q12HR IV 08/10/24 22:00 UNV Enteral Nutritional Formula 240 ml TIDWM PO 08/20/24 18:00 09/10/24 11:55 240 ML Diagnostic Test (Pha) 1 strip Q6HR 08/21/24 12:00 Cancel Insulin Human Regular FOLLOW SLIDING SCALE Q6HR SC 08/21/24 12:00 Cancel Dextrose 50 ml UD IV 08/21/24 10:00 Cancel Melatonin 3 mg HS PO 08/22/24 22:00 09/09/24 22:30 3 MG Midodrine 10 mg TID@0600,1200,1800 PO 08/23/24 12:00 09/10/24 11:55 10 MG Acetaminophen 650 mg Q6HPRN PRN PO 08/25/24 16:00 09/07/24 00:38 650 MG Enteral Nutritional Formula 28.8 gm TID PO 08/26/24 14:00 09/10/24 06:30 28.8 GM Fludrocortisone Acetate 0.1 mg DAILY PO 08/29/24 10:00 09/10/24 09:07 0.1 MG Acetaminophen/ Hydrocodone Bitart 1 tab Q4HPRN PRN PO 08/30/24 11:30 09/07/24 19:51 1 TAB Lactulose 30 ml BIDPRN PRN PO 08/30/24 11:30 09/08/24 05:52 30 ML Pantoprazole Sodium 40 mg DAILY@0600 PO 09/02/24 06:00 09/10/24 06:00 40 MG Thiamine HCl 100 mg DAILY PO 09/02/24 10:00 09/10/24 09:07 100 MG Folic Acid 1 mg DAILY PO 09/02/24 10:00 09/10/24 09:07 1 MG Multivitamins 1 tab DAILY PO 09/02/24 10:00 09/10/24 09:07 1 TAB Apixaban 5 mg BID PO 09/02/24 22:00 09/10/24 09:07 5 MG Carbidopa/Levodopa 0.5 tab TID PO 09/05/24 14:00 09/10/24 06:00 0.5 TAB Linezolid 600 mg BID PO 09/06/24 10:00 09/10/24 09:07 600 MG Laboratory Results Laboratory Tests 09/09/24 05:12 Urinalysis Test 08/11/24 13:02 Urine Color Yellow (Yellow) Urine Clarity Turbid (Clear) H Urine pH 5.5 (5.0-9.0) Urine Specific [place] 1.018 (1.001-1.035) Urine Protein 1+ (Negative) H Urine Ketones Negative (Negative) Urine Blood 3+ /uL (Negative) H Urine Nitrite Negative (Negative) Urine Bilirubin Negative (Negative) Urine Urobilinogen 4 mg/dL (Negative) H Urine Leukocyte Esterase 1+ /uL (Negative) Urine RBC 13 /hpf (0 - 3) Urine WBC 14 /hpf (0 - 3) Urine Squamous Epithelial Cells Few /hpf (<5) Urine Bacteria Few /hpf (None Seen) H Urine Hyaline Casts Few /lpf (0 - 2) Urine Granular Casts Few /lpf (0) Urine Mucus Few (None Seen) Urine Creatinine 67.44 mg/dL (30.0-125.0) Urine Protein/Creatinine Ratio 1.00 Urine Sodium 32 mmol/L (40-220) L Urine Glucose Normal mg/dL (Normal) Urine Total Protein 67.3 mg/dL (1-14) H Microbiology Microbiology Date/Time Source Procedure Growth Status 09/07/24 18:00 Nose MRSA Screen - Final Complete 08/31/24 09:35 Urine - [place] Urine Culture - Final Complete 08/26/24 15:45 Penis Gram Stain - Final Complete 08/26/24 15:45 Wound Culture - Final Pseudo fluorescence/putida Enterococcus faecium - VRE Presumptive Ema albicans Complete 08/12/24 19:02 Bronchial Washings Gram Stain - Final Resulted 08/12/24 19:02 Respiratory Culture - Preliminary Klebsiella pneumoniae Presumptive Ema albicans Resulted 08/10/24 14:08 Blood Blood Culture - Final NO GROWTH AFTER 5 DAYS OF INCUBATION. Complete Date of Service: Sep 10, 2024 SANTINO SHORE DO Sep 10, 2024 12:37
--- NOTE | 2024-09-10 19:03 | DVHINCON2 ---
Date of service: Sep 10, 2024 Allergies: Coded Allergies: UNOBTAINABLE (Unverified , 08/10/24) Home Meds Reported Medications Gabapentin (Gabapentin) 100 Mg Cap, 2 CAP PO BID for 90 Days, #360 08/11/24 Atorvastatin Calcium (Lipitor) 10 Mg Tab, 1 TAB PO DAILY for 90 Days, #90 08/11/24 Levodopa W/Carbidopa (Carbidopa/Levodopa) 1 Tab Tab, 3 TAB PO TID for 30 Days, #270 TAKE 2 TABLETS BY MOUTH 3 TIMES DAILY FOR 7 DAYS, THEN TAKE 3 TABLETS BY MOUTH 3 TIMES DAILY THEREAFTER. 08/11/24 Vital Signs Vital Signs Date Time Temp Pulse Resp B/P (MAP) Pulse Ox O2 Delivery O2 Flow Rate FiO2 09/10/24 16:58 97.5 81 18 105/56 (72) 97 97.5 09/10/24 08:00 Room Air* 0 21 Labs/Diagnostic Data Labs Test 09/09/24 05:12 09/08/24 06:03 08/27/24 10:10 08/24/24 03:05 Range/Units White Blood Count 4.8 4.4-10.8 10^3/uL Red Blood Count 3.03 L 4.5-5.90 10^6/uL Hemoglobin 9.3 L 13.5-17.5 g/dL Hematocrit 26.9 L 41.0-53.0 % Mean Corpuscular Volume 88.6 80.0-100.0 fL Mean Corpuscular Hemoglobin 30.6 28.0-32.0 pg Mean Corpuscular Hemoglobin Concent 34.6 32.0-36.0 g/dL Red Cell Distribution Width 13.6 11.8-14.3 % Platelet Count 195 140-450 10^3/uL Mean Platelet Volume 6.5 L 6.9-10.8 fL Neutrophils (%) (Auto) 54.5 37.0-80.0 % Lymphocytes (%) (Auto) 34.6 10.0-50.0 % Monocytes (%) (Auto) 8.5 0.0-12.0 % Eosinophils (%) (Auto) 1.6 0.0-7.0 % Basophils (%) (Auto) 0.8 0.0-2.0 % Neutrophils # (Auto) 2.6 1.6-8.6 10 ^3/uL Lymphocytes # (Auto) 1.7 0.4-5.4 10 ^3/uL Monocytes # (Auto) 0.4 0-1.3 10 ^3/uL Eosinophils # (Auto) 0.1 0-0.8 10 ^3/uL Basophils # (Auto) 0 0-0.2 10 ^3/uL Nucleated Red Blood Cells 0.1 % Sodium Level 136 136-145 mmol/L Potassium Level 3.9 3.5-5.1 mmol/L Chloride Level 103 98-107 mmol/L Carbon Dioxide Level 29 20-31 mmol/L Anion Gap 4 L 5-15 Blood Urea Nitrogen 30 H 9-23 mg/dL Creatinine 0.71 0.700-1.30 mg/dL Glomerular Filtration Rate Calc 95 >90 mL/min BUN/Creatinine Ratio 42.3 H 10.0-20.0 Serum Glucose 88 74-106 mg/dL Calcium Level 8.8 8.7-10.4 mg/dL Magnesium Level 1.8 1.6-2.6 mg/dL Total Bilirubin 0.6 0.2-1.0 mg/dL Aspartate Amino Transferase (AST) 32 13-40 U/L Alanine Aminotransferase (ALT) 13 7-40 U/L Alkaline Phosphatase 198 H 46-116 U/L Total Protein 5.8 5.7-8.2 g/dL Albumin 3.0 L 3.2-4.8 g/dL POC Glucose 72 70-106 mg/dl Prothrombin Time 12.2 H 9.3-11.8 sec Prothrombin Time INR 1.16 H 0.9-1.15 Activated Partial Thromboplast Time 28.3 24.5-34.5 SEC Phosphorus Level 2.9 2.4-5.1 mg/dL Test 08/23/24 03:00 08/22/24 03:05 08/21/24 04:10 08/20/24 11:50 Range/Units Ammonia < 10 L 11-32 umol/L Vitamin B12 Level 543 211-911 pg/mL Folic Acid 5.84 >5.38 ng/mL Triglycerides Level 67 < 150 mg/dL Creatine Kinase 510 H 46-171 U/L Hemoglobin A1c 6.1 H <5.7 % A1C Test 08/19/24 08:40 08/15/24 14:47 08/15/24 11:20 08/15/24 06:55 Range/Units Cortisol AM Sample 20.77 5.27-22.45 ug/dL Miscellaneous Referred Test (Rm Tmp Sent to [facility] Blood Gas Specimen Type Arterial Blood Gas Sample Site Right radial Blood Gas Patient Temperature 37.0 Arterial Blood Date Drawn Arterial Blood pH 7.421 7.350-7.450 Arterial Blood Partial Pressure CO2 40.5 35.0-48.0 mmHg Arterial Blood Partial Pressure O2 126.4 H 83.0-108.0 mmHg Arterial Blood HCO3 25.7 21.0-28.0 mmol/L Arterial Blood Oxygen Saturation 98.2 H 94.0-98.0 % Arterial Blood Base Excess 1.2 -2.0-3.0 mmol/L Arterial Blood Oxyhemoglobin 97.9 94.0-98.0 % Arterial Blood Carboxyhemoglobin 0.1 L 0.5-1.5 % Arterial Blood Methemoglobin 0.2 0.0-1.5 % Kirby Test Modified Blood Gas Total Hemoglobin 13.10 L 13.5-17.5 g/dL Blood Gas Modality Vent - cpap Blood Gas Spontaneous Rate 12 FiO2 % 30.0 Blood Gas Pressure Support 8 Blood Gas PEEP or CPAP 5.0 Blood Gas Set Respiration Rate 14.0 Blood Gas Tidal Volume 500.0 Test 08/14/24 03:35 08/13/24 03:05 08/12/24 20:55 08/12/24 15:13 Range/Units Platelet Estimate Decrea Large Platelets Few Random Vancomycin Level 12.6 H 5-10 ug/mL Influenza Type A Antigen Negative Negative Influenza Type B Antigen Negative Negative SARS-CoV-2 Antigen (Rapid) Negative NEGATIVE Test 08/11/24 13:02 08/11/24 03:10 08/10/24 20:30 08/10/24 15:07 Range/Units Urine Color Yellow Yellow Urine Clarity Turbid H Clear Urine pH 5.5 5.0-9.0 Urine Specific [place] 1.018 1.001-1.035 Urine Protein 1+ H Negative Urine Ketones Negative Negative Urine Blood 3+ H Negative /uL Urine Nitrite Negative Negative Urine Bilirubin Negative Negative Urine Urobilinogen 4 H Negative mg/dL Urine Leukocyte Esterase 1+ Negative /uL Urine RBC 13 0 - 3 /hpf Urine WBC 14 0 - 3 /hpf Urine Squamous Epithelial Cells Few <5 /hpf Urine Bacteria Few H None Seen /hpf Urine Hyaline Casts Few 0 - 2 /lpf Urine Granular Casts Few 0 /lpf Urine Mucus Few None Seen Urine Creatinine 67.44 30.0-125.0 mg/dL Urine Protein/Creatinine Ratio 1.00 Urine Sodium 32 L 40-220 mmol/L Urine Glucose Normal Normal mg/dL Urine Total Protein 67.3 H 1-14 mg/dL Vitamin D 25-Hydroxy 68.2 30.0-100 ng/mL Thyroid Stimulating Hormone (TSH) 4.48 0.55-4.78 uIU/mL Parathyroid Hormone (Intact) 169.0 H 18.4-80.1 pg/mL Hepatitis B Surface Antigen Negative Negative Hepatitis C Antibody Negative Negative Troponin I High Sensitivity 42 </=54 ng/L Blood Gas Critical Value Read Back Yes Blood Gas Notified Whom Dr. su staples Blood Gas Notified Time [id number] Blood Gas Notified By Computer Support Analyst don garrido Test 08/10/24 14:08 08/10/24 13:42 Range/Units Lactic Acid Level 0.7 0.4-2.0 mmol/L Urine Opiates Screen Neg NEGATIVE Urine Fentanyl Screen Neg NEGATIVE Urine Barbiturates Screen Neg NEGATIVE Urine Phencyclidine Screen Neg NEGATIVE Urine Amphetamines Screen Neg NEGATIVE Urine Benzodiazepines Screen Neg NEGATIVE Urine Cocaine Screen Neg NEGATIVE Urine Cannabinoids Screen Neg NEGATIVE Microbiology Date/Time Source Procedure Growth Status 09/07/24 18:00 Nose MRSA Screen - Final Complete 08/31/24 09:35 Urine - [place] Urine Culture - Final Complete 08/26/24 15:45 Penis Gram Stain - Final Complete 08/26/24 15:45 Wound Culture - Final Pseudo fluorescence/putida Enterococcus faecium - VRE Presumptive Ema albicans Complete 08/12/24 19:02 Bronchial Washings Gram Stain - Final Resulted 08/12/24 19:02 Respiratory Culture - Preliminary Klebsiella pneumoniae Presumptive Ema albicans Resulted 08/10/24 14:08 Blood Blood Culture - Final NO GROWTH AFTER 5 DAYS OF INCUBATION. Complete Plan/Recommendation Encounter Date: 09/10/2024 Patient Name: Anita Provider: Dr. Gil Miller ASSESSMENT AND PLAN: ID Problem List: - Chronic sacral decubitus ulcer - Thigh cellulitis - Klebsiella pneumonia - VRE colonization - Sepsis - Penile ulcer DVT Assessment This is a 78-year-old male with a known history of chronic decubitus ulcer. He was found altered and incontinent about three weeks ago, requiring ICU admission and vasopressors. Multiple antibiotic regimens have been used, including meropenem, vancomycin, linezolid, ceftriaxone, azithromycin, and piperacillin- tazobactam (Zosyn). Recent wound cultures grew Klebsiella pneumoniae and VRE (felt to be colonization rather than an active infection). He also has a large left lateral thigh ulceration with necrosis and drainage, non-healing upper back wounds, and a penile ulcer. He is currently off vasopressors and remains on apixaban therapy for an identified DVT. Plan: - Discontinue meropenem and linezolid - Monitor the patient off all antibiotics - Suspect VRE as colonization; no new antimicrobial coverage for this at present - Continue supportive care with IV fluids as needed, and use pressors if necessary to maintain MAP > 65 - Maintain blood glucose < 180 mg/dL with insulin as needed - Defer management of anticoagulation to the primary team - Continue local wound care and follow up on debridements as necessary Isolation Precautions: standard Assessment and plan were discussed with the patient (and/or appropriate decision-makers) as written above. Plan is subject to change pending new incoming information/diagnostics. Thank you for this consult. ID will continue to follow. Please contact Infectious Disease for any questions or concerns. Electronically signed by: Gil Miller MD, 09/10/2024 History: The patients chart and medications were reviewed in detail, and the patient was seen and examined. History obtained from: available records and prior notes Anita is a 78-year-old male who presented in an altered state approximately three weeks ago. He has required ICU admission, including vasopressor support, and has been treated with various IV antibiotics for Klebsiella pneumonia and suspected sepsis. Recent wound cultures revealed VRE, thought to be colonizing rather than causing an active infection. Review of Systems: A complete 10-system review of systems was completed and negative except as noted in the HPI or here: - CONSTITUTIONAL: Patient was previously altered; no new fevers reported since August 19 except a single temperature of 100.2F on that date. - SKIN: Multiple ulcers including sacral decubitus, large left lateral thigh ulceration, and penile ulcer as detailed above. - All other systems: No additional complaints. Past Medical History: - Chronic sacral decubitus ulcer - Thigh cellulitis - Klebsiella pneumonia - VRE colonization DVT Past Surgical History: - Multiple wound debridements (left lower back, upper back, and left lower thigh) Home Medications (per transcript): - Apixaban (dose not specified) - Carbidopa/Levodopa (dose not specified) Inpatient antibiotics have included (but are not limited to): meropenem, vancomycin, linezolid, ceftriaxone, azithromycin, and piperacillin-tazobactam. Allergies: - No known allergies mentioned Family History: - Not mentioned in current transcript Social History: - Not mentioned in current transcript Objective: Vital Signs (most recent available per transcript or not otherwise specified): - No current fever reported - Blood pressure has been low, requiring pressors until recently - White count reduced to 4.8 K/L per last mention Physical Exam: - General: NAD - Neck: Supple. No masses. - HEENT: PERRL. Normal lids and conjunctiva. Moist mucous membranes. Oropharynx without lesions, exudates, or excessive erythema. Normal appearance of the external aspects of the nose and ears. - Heart: Regular rhythm, normal rate. No murmur. No lower extremity edema. - Lungs: Normal respiratory effort. Clear to auscultation bilaterally. No wheezes. No crackles. - Abdomen: Soft. Non-tender. Non-distended. No masses or abdominal hernia. - Msk: No digital cyanosis. Normal strength and tone in all 4 limbs. - Skin: Warm and dry, no rashes. Large left lateral thigh ulceration with necrosis and drainage. Chronic sacral decubitus ulcer. Non-healing wounds on the upper back. - (added for abnormal finding): Penile ulcer noted. - Neuro: Alert (no current mention of persistent altered mental status). No facial droop or slurred speech. Extra-ocular movements intact. Sensation intact to soft touch in all 4 limbs. - Psych: Appropriate mood. Full affect. Oriented to person, place, time, and situation (no acute psychiatric complaints reported). Lines: - Not specifically detailed beyond prior mention of ICU care. Diagnostic Studies: Available diagnostic studies were reviewed. Blood cultures have shown no growth to date. Wound cultures have grown Klebsiella pneumoniae and VRE (sensitivity indicates VRE is likely colonization). Pertinent Imaging: - Chest X-ray (initially) reportedly confirmed pneumonia consistent with Kl ebsiella, though precise details are limited in the transcript. - Ultrasound/Doppler previously identified DVT in the right lower extremity veins. Electronically signed by: Gil Miller MD, 09/10/2024 Plan discussed with: Patient GIL MILLER MD Sep 10, 2024 19:03
--- NOTE | 2024-09-10 23:08 | DVHPN2 ---
Progress Note - Dictate Date Seen: Sep 10, 2024 Medical Necessity Reason Pt with a Central, PICC or Fol: Yes The following are medically ne: Powell Catheter Reason for powell catheter: Strict I&O Subjective Patient seen and examined at bedside. Breathing on room air. Overnight events reviewed. vital signs Vital Sign Date Time Temp Pulse Resp B/P (MAP) Pulse Ox O2 Delivery O2 Flow Rate FiO2 09/10/24 21:00 97.5 80 17 118/60 (79) 97 97.5 09/10/24 20:00 Room Air* 0 21 Total Intake and Output 09/09/24 09/09/24 09/10/24 15:00 23:00 07:00 Intake Total 460 ml 650 ml 550 ml Output Total 1000 ml 1070 ml Balance 460 ml -350 ml -520 ml medications Current Medications Medications Dose Ordered Sig/Akiko Route Start Time Stop Time Status Last Admin Dose Admin Vancomycin HCl 200 ml @ 200 mls/hr Q12HR IV 08/10/24 22:00 UNV Enteral Nutritional Formula 240 ml TIDWM PO 08/20/24 18:00 09/10/24 16:25 240 ML Diagnostic Test (Pha) 1 strip Q6HR 08/21/24 12:00 Cancel Insulin Human Regular FOLLOW SLIDING SCALE Q6HR SC 08/21/24 12:00 Cancel Dextrose 50 ml UD IV 08/21/24 10:00 Cancel Melatonin 3 mg HS PO 08/22/24 22:00 09/10/24 21:30 3 MG Midodrine 10 mg TID@0600,1200,1800 PO 08/23/24 12:00 09/10/24 17:08 10 MG Acetaminophen 650 mg Q6HPRN PRN PO 08/25/24 16:00 09/07/24 00:38 650 MG Enteral Nutritional Formula 28.8 gm TID PO 08/26/24 14:00 09/10/24 21:33 28.8 GM Fludrocortisone Acetate 0.1 mg DAILY PO 08/29/24 10:00 09/10/24 09:07 0.1 MG Acetaminophen/ Hydrocodone Bitart 1 tab Q4HPRN PRN PO 08/30/24 11:30 09/10/24 21:31 1 TAB Lactulose 30 ml BIDPRN PRN PO 08/30/24 11:30 09/08/24 05:52 30 ML Pantoprazole Sodium 40 mg DAILY@0600 PO 09/02/24 06:00 09/10/24 06:00 40 MG Thiamine HCl 100 mg DAILY PO 09/02/24 10:00 09/10/24 09:07 100 MG Folic Acid 1 mg DAILY PO 09/02/24 10:00 09/10/24 09:07 1 MG Multivitamins 1 tab DAILY PO 09/02/24 10:00 09/10/24 09:07 1 TAB Apixaban 5 mg BID PO 09/02/24 22:00 09/10/24 21:29 5 MG Carbidopa/Levodopa 0.5 tab TID PO 09/05/24 14:00 09/10/24 21:29 0.5 TAB objective Gen.: Patient lying in bed in no apparent distress. Breathing on room air. Head: Normocephalic, atraumatic. Eyes: EOMI/PERRLA. Ears: Normal hearing. Normal anatomy. Neck/trachea: Trachea midline, supple. Nose: Normal external anatomy. Mouth: Moist mucous membranes. Chest: Decreased air entry bilaterally. No wheezing or rhonchi. Cardiovascular: Positive S1, positive S2. Regular rate and rhythm. Abdomen: Positive bowel sounds in all 4 quadrants. Soft, non-tender, non- distended. : Deferred. Rectal: Deferred. Skin: Warm, dry. Intact. Extremities: 2+ radial pulses bilaterally. No lower extremity edema. Neuro: Awake, alert, oriented x3. No gross motor or sensory deficits. Cranial nerves II through XII intact. Gait not assessed. laboratory and microbiology Laboratory Tests 09/09/24 05:12 Test 09/09/24 05:12 Range/Units Serum Glucose 88 74-106 mg/dL Assessment/Plan Impression: Acute hypoxic respiratory failure Leukocytosis Hypernatremia Parkinson's disease Acute metabolic encephalopathy Decubitus ulcers Sepsis Rhabdomyolysis Acute kidney injury Events: Remains on room air. No respiratory distress. Continue wound care Head of bed elevation Aspiration precautions Supportive care Continue bronchodilators PRN On Florinef Continue vitamin supplementation Continue PO antibiotics Incentive spirometry Continue midodrine 10 mg TID Monitor hemoglobin Accu-Cheks for glycemic monitoring Nutritional support Monitor renal function Powell in place - monitor ins and outs Awaiting SNF placement in . Disposition per hospitalist. Labs and imaging reviewed. Rest of plan as noted below. Plan: S/p extubation 08/15/24 Breathing on room air. Supplemental O2 PRN. CT head: No acute intracranial hemorrhage or stroke. Pressors if necessary for hemodynamic support Titrate to keep MAP above 65 mmHg/SBP above 90 mmHg. Antibiotics. Monitor hemoglobin Head of bed elevation Aspiration precautions Monitor renal function due to Acute kidney injury. Monitor electrolytes. Supplement as necessary. Monitor sodium due to hypernatremia IV fluid hydration Do not over correct sodium. Sodium 136 (08/29/24) Nutritional support. Accu-Cheks, ISS. GI prophylaxis - Protonix DVT prophylaxis. Prognosis: Guarded given multiple comorbidities. Rest of plan per hospitalist and other consultants. Thank you Dr. Newman for allowing me to participate in this patient's care. Further recommendations will depend on patient's clinical course. Please do not hesitate to contact me if you have any questions or concerns. This medical document was created using an electronic medical record system with [employer] dictation system. Although this document has been carefully reviewed, there may still be some phonetic and typographical errors. These areas are purely typographical due to imperfections of the software programs, and do not reflect any compromise in the patient's medical care. Dietary Evaluation Review Comments: 1. If on Vent Consider Nepro 30ml/hr x 24 hr,( 58g pro 1274 kcal). this will support pt's needs at 100% protein, 94 % kcal. 2. If EN not possible, and NPO > 7 days, consider TPN per pharmacy. 3. If off Vent, and pass speech eval, offer Renal Specific -50g protein 2g Na 3 K Low phos, 4. If off vent on hemo dialysis, pass speech eval, offer Renal Standard 2 gNa 3 K, Low Phos diet. Expected Outcomes/Goals: advance to diet able to eat independently. Plan discussed with: Patient, Other (RN Ty) REY REAGAN MD Sep 10, 2024 23:07
[2024-09-11] VITALS (7 sets, daily range): BP systolic 99–118; BP diastolic 48–58; PULSE 76–85; RESP 17–18; TEMP 97.5–98.6; O2SAT 97–100
--- NOTE | 2024-09-11 23:19 | DVHPN2 ---
Progress Note - Dictate Date Seen: Sep 11, 2024 Medical Necessity Reason Pt with a Central, PICC or Fol: Yes The following are medically ne: Powell Catheter Reason for powell catheter: Strict I&O Subjective Patient seen and examined at bedside. Breathing on room air. Overnight events reviewed. vital signs Vital Sign Date Time Temp Pulse Resp B/P (MAP) Pulse Ox O2 Delivery O2 Flow Rate FiO2 09/11/24 21:00 98.0 83 18 118/58 (78) 98 98.0 09/11/24 08:00 Room Air* 0 21 Total Intake and Output 09/10/24 09/10/24 09/11/24 15:00 23:00 07:00 Intake Total 850 ml 500 ml 500 ml Output Total 901 ml 700 ml Balance 850 ml -401 ml -200 ml medications Current Medications Medications Dose Ordered Sig/Akiko Route Start Time Stop Time Status Last Admin Dose Admin Vancomycin HCl 200 ml @ 200 mls/hr Q12HR IV 08/10/24 22:00 UNV Enteral Nutritional Formula 240 ml TIDWM PO 08/20/24 18:00 09/11/24 16:46 240 ML Diagnostic Test (Pha) 1 strip Q6HR 08/21/24 12:00 Cancel Insulin Human Regular FOLLOW SLIDING SCALE Q6HR SC 08/21/24 12:00 Cancel Dextrose 50 ml UD IV 08/21/24 10:00 Cancel Melatonin 3 mg HS PO 08/22/24 22:00 09/11/24 21:21 3 MG Midodrine 10 mg TID@0600,1200,1800 PO 08/23/24 12:00 09/11/24 16:46 10 MG Acetaminophen 650 mg Q6HPRN PRN PO 08/25/24 16:00 09/07/24 00:38 650 MG Enteral Nutritional Formula 28.8 gm TID PO 08/26/24 14:00 09/11/24 21:23 28.8 GM Fludrocortisone Acetate 0.1 mg DAILY PO 08/29/24 10:00 09/11/24 08:49 0.1 MG Acetaminophen/ Hydrocodone Bitart 1 tab Q4HPRN PRN PO 08/30/24 11:30 09/11/24 03:33 1 TAB Lactulose 30 ml BIDPRN PRN PO 08/30/24 11:30 09/08/24 05:52 30 ML Pantoprazole Sodium 40 mg DAILY@0600 PO 09/02/24 06:00 09/11/24 06:34 40 MG Thiamine HCl 100 mg DAILY PO 09/02/24 10:00 09/11/24 08:48 100 MG Folic Acid 1 mg DAILY PO 09/02/24 10:00 09/11/24 08:49 1 MG Multivitamins 1 tab DAILY PO 09/02/24 10:00 09/11/24 08:49 1 TAB Apixaban 5 mg BID PO 09/02/24 22:00 09/11/24 21:21 5 MG Carbidopa/Levodopa 0.5 tab TID PO 09/05/24 14:00 09/11/24 21:21 0.5 TAB objective Gen.: Patient lying in bed in no apparent distress. Breathing on room air. Head: Normocephalic, atraumatic. Eyes: EOMI/PERRLA. Ears: Normal hearing. Normal anatomy. Neck/trachea: Trachea midline, supple. Nose: Normal external anatomy. Mouth: Moist mucous membranes. Chest: Decreased air entry bilaterally. No wheezing or rhonchi. Cardiovascular: Positive S1, positive S2. Regular rate and rhythm. Abdomen: Positive bowel sounds in all 4 quadrants. Soft, non-tender, non- distended. : Deferred. Rectal: Deferred. Skin: Warm, dry. Intact. Extremities: 2+ radial pulses bilaterally. No lower extremity edema. Neuro: Awake, alert, oriented x3. No gross motor or sensory deficits. Cranial nerves II through XII intact. Gait not assessed. laboratory and microbiology Laboratory Tests 09/09/24 05:12 Test 09/09/24 05:12 Range/Units Serum Glucose 88 74-106 mg/dL Assessment/Plan Impression: Acute hypoxic respiratory failure Leukocytosis Hypernatremia Parkinson's disease Acute metabolic encephalopathy Decubitus ulcers Sepsis Rhabdomyolysis Acute kidney injury Events: Remains on room air. No respiratory distress. Continue wound care Head of bed elevation Aspiration precautions Supportive care Continue bronchodilators PRN On Florinef Continue vitamin supplementation Incentive spirometry Continue midodrine 10 mg TID Monitor hemoglobin Accu-Cheks for glycemic monitoring Nutritional support Monitor renal function Powell in place - monitor ins and outs Awaiting SNF placement in . Disposition per hospitalist. Labs and imaging reviewed. Rest of plan as noted below. Plan: S/p extubation 12/30/24 Breathing on room air. Supplemental O2 PRN. CT head: No acute intracranial hemorrhage or stroke. Pressors if necessary for hemodynamic support Titrate to keep MAP above 65 mmHg/SBP above 90 mmHg. Continue bronchodilators PRN Monitor hemoglobin Head of bed elevation Aspiration precautions Monitor renal function due to Acute kidney injury. Monitor electrolytes. Supplement as necessary. Monitor sodium due to hypernatremia IV fluid hydration Do not over correct sodium. Sodium 136 (08/29/24) Nutritional support. Accu-Cheks, ISS. GI prophylaxis - Protonix DVT prophylaxis. Prognosis: Guarded given multiple comorbidities. Rest of plan per hospitalist and other consultants. Thank you Dr. Newman for allowing me to participate in this patient's care. Further recommendations will depend on patient's clinical course. Please do not hesitate to contact me if you have any questions or concerns. This medical document was created using an electronic medical record system with [employer] dictation system. Although this document has been carefully reviewed, there may still be some phonetic and typographical errors. These areas are purely typographical due to imperfections of the software programs, and do not reflect any compromise in the patient's medical care. Dietary Evaluation Review Comments: 1. If on Vent Consider Nepro 30ml/hr x 24 hr,( 58g pro 1274 kcal). this will support pt's needs at 100% protein, 94 % kcal. 2. If EN not possible, and NPO > 7 days, consider TPN per pharmacy. 3. If off Vent, and pass speech eval, offer Renal Specific -50g protein 2g Na 3 K Low phos, 4. If off vent on hemo dialysis, pass speech eval, offer Renal Standard 2 gNa 3 K, Low Phos diet. Expected Outcomes/Goals: advance to diet able to eat independently. Plan discussed with: Patient, Other (RN Ty) REY REAGAN MD Sep 11, 2024 23:19
[2024-09-12 05:00] VITALS: BP 102/56; PULSE 86; RESP 18; TEMP 98.8; O2SAT 98
[2024-09-12 08:00] VITALS: PULSE 81; RESP 18; O2SAT 96
[2024-09-12 08:07] VITALS: BP 118/58; PULSE 81; RESP 18; TEMP 98.3; O2SAT 96
--- NOTE | 2024-09-12 10:13 | DVHPN2 ---
Progress Note - Dictate Date Seen: Sep 12, 2024 Medical Necessity Reason Pt with a Central, PICC or Fol: Yes The following are medically ne: Powell Catheter Reason for powell catheter: Strict I&O Subjective Mr. Howard is a 78 years old right-handed gentleman with a history of Parkinson's disease, the patient was admitted on 08/10 24 with a chief company of altered mental status I have seen and examined the patient, I have discussed with his nurse and sitter, he is awake, oriented to person and place, he knows year, , socially appropriate No tremors, but he has cogwheeling in the right hand, possible cogwheeling in the left wrist Respiratory culture, 08/12/2024: Klebsiella pneumoniae Blood culture, 08/10/24: Negative UDS, 08/10/2024: Negative Urinalysis, 08/10/2024: WBC 10, urine leukocyte: Trace WBC/HB/PLT/MCV, 08/20/24: 6.5/10.5/205/88.8 PT/INR/PTT, 08/14/2024: 13.9/1.34/30.9 Na, 08/10/2024: 170, 168, 08/11/2024: 165, 08/12/2024: 164, 08/13/2024: 161, 08/14/2024: 156, 08/19/2024: 149, 08/20/24: 149, 08/23/2023: 142 BUN/CR, 08/18/2024: 45/1.01, 08/20/2024: 42/1.07 CPK, 08/10/2024: 2513, 08/11/2024: 2525, 08/12/2024: 2844, 08/13/2024: 4268, 08/21/2024: 510 TBI/AST/ALT/AP, 08/20/2024: 1.4/148/210/179, 08/23/2024: 08/23/2024: 0.9/61/104/180 Ammonia, 08/23/2024: < 10 Hepatitis panel, 08/11/2024: Negative TSH, 08/11/2024: 4.48 Venous Doppler, lower extremities, 08/13/2024: No left DVT. Positive DVT involving the right lower extremity common femoral vein, femoral vein, popliteal vein and calf Chest x-ray, 08/10/2024: No acute cardiopulmonary disease. Elevation of the left hemidiaphragm. Enteric tube and endotracheal tube are in satisfactory position Chest x-ray, 08/21/2024: Increased congestion CT head, 08/10/2024: 1. No acute intracranial hemorrhage, midline shift or mass effect. 2. Generalized brain atrophy. 3. Small vessel ischemic/degenerative changes. 4. If symptoms persists, further evaluation with MRI is recommended MRI head, 08/19/2024: 1. No evidence of acute intracranial abnormality. 2. Motion limited study vital signs Vital Sign Date Time Temp Pulse Resp B/P (MAP) Pulse Ox O2 Delivery O2 Flow Rate FiO2 09/12/24 08:07 98.3 81 18 118/58 (78) 96 98.3 09/11/24 20:00 Room Air* 0 21 Total Intake and Output 09/11/24 09/11/24 09/12/24 15:00 23:00 07:00 Intake Total 925 ml 450 ml Output Total 2300 ml 1200 ml Balance -1375 ml -750 ml medications Current Medications Medications Dose Ordered Sig/Akiko Route Start Time Stop Time Status Last Admin Dose Admin Vancomycin HCl 200 ml @ 200 mls/hr Q12HR IV 08/10/24 22:00 UNV Enteral Nutritional Formula 240 ml TIDWM PO 08/20/24 18:00 09/11/24 16:46 240 ML Diagnostic Test (Pha) 1 strip Q6HR 08/21/24 12:00 Cancel Insulin Human Regular FOLLOW SLIDING SCALE Q6HR SC 08/21/24 12:00 Cancel Dextrose 50 ml UD IV 08/21/24 10:00 Cancel Melatonin 3 mg HS PO 08/22/24 22:00 09/11/24 21:21 3 MG Midodrine 10 mg TID@0600,1200,1800 PO 08/23/24 12:00 09/12/24 05:20 10 MG Acetaminophen 650 mg Q6HPRN PRN PO 08/25/24 16:00 09/07/24 00:38 650 MG Enteral Nutritional Formula 28.8 gm TID PO 08/26/24 14:00 09/11/24 21:23 28.8 GM Fludrocortisone Acetate 0.1 mg DAILY PO 08/29/24 10:00 09/11/24 08:49 0.1 MG Acetaminophen/ Hydrocodone Bitart 1 tab Q4HPRN PRN PO 08/30/24 11:30 09/12/24 00:54 1 TAB Lactulose 30 ml BIDPRN PRN PO 08/30/24 11:30 09/08/24 05:52 30 ML Pantoprazole Sodium 40 mg DAILY@0600 PO 09/02/24 06:00 09/12/24 05:21 40 MG Thiamine HCl 100 mg DAILY PO 09/02/24 10:00 09/11/24 08:48 100 MG Folic Acid 1 mg DAILY PO 09/02/24 10:00 09/11/24 08:49 1 MG Multivitamins 1 tab DAILY PO 09/02/24 10:00 09/11/24 08:49 1 TAB Apixaban 5 mg BID PO 09/02/24 22:00 09/11/24 21:21 5 MG Carbidopa/Levodopa 0.5 tab TID PO 09/05/24 14:00 09/12/24 05:20 0.5 TAB objective General: the patient is well developed and nourished. No acute distress. MENTAL STATUS: Subjective SPEECH, LANGUAGE, HIGHER CORTICAL FUNCTION: no aphasia or dysathria. CRANIAL NERVES: Pupils are equal, round and reactive. EOMs full and conjugate. No nystagmus. Facial sensation intact in all three divisions bilaterally. Mandibular strength intact. Facial muscles symmetrical and strength intact. SENSATION: Sensation to touch and pinprick is Ok MOTOR: Normal muscle bulk. No fasciculations. He moves the arms REFLEXES: Deep tendon reflexes normal and symmetrical. No pathological reflexes. CEREBELLAR/COORDINATION: Deferred GAIT/STATION: deferred laboratory and microbiology Laboratory Tests 09/09/24 05:12 Test 09/09/24 05:12 Range/Units Serum Glucose 88 74-106 mg/dL Problem List Altered mental status/metabolic encephalopathy secondary to Sepsis Septic shock Respiratory failure Urinary tract infection Dehydration Acute kidney failure Hypernatremia ? Levodopa side effects Rhabdomyolysis Hand tremors, gait disturbance, low voice Parkinson's disease Rule out essential tremor Pressure sores DVT Assessment/Plan Monitoring Supportive treatment Oxygen IV antibiotics Eliquis 5 mg b.i.d. Sinemet 25/100, 0.5 tablets, t.i.d. Midodrine Current pain management Okay to use Tylenol for pain control Wound care GI prophylaxis Pulmonary on case Nephrology on case Surgery on case More recommendation per clinical course This medical document was created using an electronic medical record system with [employer] dictation system. Although this document has been carefully reviewed, there may still be some phonetic and typographical errors. These areas are purely typographical due to imperfections of the software programs, and do not reflect any compromise in the patient's medical care Prognosis poor Dietary Evaluation Review Comments: 1. If on Vent Consider Nepro 30ml/hr x 24 hr,( 58g pro 1274 kcal). this will support pt's needs at 100% protein, 94 % kcal. 2. If EN not possible, and NPO > 7 days, consider TPN per pharmacy. 3. If off Vent, and pass speech eval, offer Renal Specific -50g protein 2g Na 3 K Low phos, 4. If off vent on hemo dialysis, pass speech eval, offer Renal Standard 2 gNa 3 K, Low Phos diet. Expected Outcomes/Goals: advance to diet able to eat independently. Plan discussed with: Other EVELINE HUNTER MD Sep 12, 2024 10:13
--- NOTE | 2024-09-12 11:31 | DVHPN2 ---
Subjective Patient seen And examined at bedside.. Complain of weak and tired. Reviewed: Care Plan, H&P, Labs, Medications, Previous Orders, Radiology, Other (Consultants) Changes from previous H/P or p: No Changes General: Per HPI Objective Vitals Vital Signs Date Time Temp Pulse Resp B/P (MAP) Pulse Ox O2 Delivery O2 Flow Rate FiO2 09/12/24 08:07 98.3 81 18 118/58 (78) 96 98.3 09/11/24 20:00 Room Air* 0 21 Intake/Output Intake and Output 09/12/24 07:00 Intake Total 1375 ml Output Total 3500 ml Balance -2125 ml Intake Oral 1375 ml Output Urine Total 3500 ml General Appearance: Alert, Oriented X3, Cooperative, No acute distress HEENT: Atraumatic, PERRLA Lungs: Clear to auscultation, Normal air movement Cardiovascular: Regular rate, Normal S1, Normal S2 Abdomen: Normal bowel sounds, Soft, No tenderness Musculoskeletal: Weak motor strength RUE, Weak motor strength LUE, Weak motor strength RLE, Weak motor strength LLE Extremities: Other Skin: Wounds Psych/Mental Status: Other Medications Current Medications Medications Dose Ordered Sig/Akiko Route Start Time Stop Time Status Last Admin Dose Admin Vancomycin HCl 200 ml @ 200 mls/hr Q12HR IV 08/10/24 22:00 UNV Enteral Nutritional Formula 240 ml TIDWM PO 08/20/24 18:00 09/12/24 10:57 240 ML Diagnostic Test (Pha) 1 strip Q6HR 08/21/24 12:00 Cancel Insulin Human Regular FOLLOW SLIDING SCALE Q6HR SC 08/21/24 12:00 Cancel Dextrose 50 ml UD IV 08/21/24 10:00 Cancel Melatonin 3 mg HS PO 08/22/24 22:00 09/11/24 21:21 3 MG Midodrine 10 mg TID@0600,1200,1800 PO 08/23/24 12:00 09/12/24 10:56 10 MG Acetaminophen 650 mg Q6HPRN PRN PO 08/25/24 16:00 09/07/24 00:38 650 MG Enteral Nutritional Formula 28.8 gm TID PO 08/26/24 14:00 09/11/24 21:23 28.8 GM Fludrocortisone Acetate 0.1 mg DAILY PO 08/29/24 10:00 09/12/24 10:56 0.1 MG Acetaminophen/ Hydrocodone Bitart 1 tab Q4HPRN PRN PO 08/30/24 11:30 09/12/24 00:54 1 TAB Lactulose 30 ml BIDPRN PRN PO 08/30/24 11:30 09/08/24 05:52 30 ML Pantoprazole Sodium 40 mg DAILY@0600 PO 09/02/24 06:00 09/12/24 05:21 40 MG Thiamine HCl 100 mg DAILY PO 09/02/24 10:00 09/12/24 10:56 100 MG Folic Acid 1 mg DAILY PO 09/02/24 10:00 09/12/24 10:57 1 MG Multivitamins 1 tab DAILY PO 09/02/24 10:00 09/12/24 10:56 1 TAB Apixaban 5 mg BID PO 09/02/24 22:00 09/12/24 10:56 5 MG Carbidopa/Levodopa 0.5 tab TID PO 09/05/24 14:00 09/12/24 05:20 0.5 TAB Laboratory Results Laboratory Tests 09/09/24 05:12 Urinalysis Test 08/11/24 13:02 Urine Color Yellow (Yellow) Urine Clarity Turbid (Clear) H Urine pH 5.5 (5.0-9.0) Urine Specific [place] 1.018 (1.001-1.035) Urine Protein 1+ (Negative) H Urine Ketones Negative (Negative) Urine Blood 3+ /uL (Negative) H Urine Nitrite Negative (Negative) Urine Bilirubin Negative (Negative) Urine Urobilinogen 4 mg/dL (Negative) H Urine Leukocyte Esterase 1+ /uL (Negative) Urine RBC 13 /hpf (0 - 3) Urine WBC 14 /hpf (0 - 3) Urine Squamous Epithelial Cells Few /hpf (<5) Urine Bacteria Few /hpf (None Seen) H Urine Hyaline Casts Few /lpf (0 - 2) Urine Granular Casts Few /lpf (0) Urine Mucus Few (None Seen) Urine Creatinine 67.44 mg/dL (30.0-125.0) Urine Protein/Creatinine Ratio 1.00 Urine Sodium 32 mmol/L (40-220) L Urine Glucose Normal mg/dL (Normal) Urine Total Protein 67.3 mg/dL (1-14) H Microbiology Microbiology Date/Time Source Procedure Growth Status 09/07/24 18:00 Nose MRSA Screen - Final Complete 08/31/24 09:35 Urine - [place] Urine Culture - Final Complete 08/26/24 15:45 Penis Gram Stain - Final Complete 08/26/24 15:45 Wound Culture - Final Pseudo fluorescence/putida Enterococcus faecium - VRE Presumptive Ema albicans Complete 08/12/24 19:02 Bronchial Washings Gram Stain - Final Resulted 08/12/24 19:02 Respiratory Culture - Preliminary Klebsiella pneumoniae Presumptive Ema albicans Resulted 08/10/24 14:08 Blood Blood Culture - Final NO GROWTH AFTER 5 DAYS OF INCUBATION. Complete Labs and/or images reviewed: Labs reviewed by me Assessment/Plan Assessment/Plan Sepsis with septic shock Metabolic encephalopathy, Wound infection of left buttock and back Parkinson's disease R leg DVT Hypernatremia: resolved DAYLIN: Better Respiratory failure: Better PLAN: Continuing current management. Continuing with Wound care Continuing with IV antibiotics Zyvox and meropenem Infectious disease consult appreciated Continuing with midodrine, Florinef, Continuing with morphine and [place] for pain control Wound I and D was done by surgeon Continuing Sinemet Discharge planning to snf Waiting for insurance approval Plan discussed with: Patient Date of Service: Sep 12, 2024 Billing Provider: MAGALYS LAMAS MD Common Visit Codes: [id number] INP/OBS CARE(HIGH) MAGALYS LAMAS MD Sep 12, 2024 11:31
[2024-09-12 13:46] VITALS: BP 98/48; PULSE 87; RESP 18; TEMP 98; O2SAT 98
[2024-09-12 17:34] VITALS: BP 116/52; PULSE 81; RESP 18; TEMP 97.8; O2SAT 99
[2024-09-12 21:00] VITALS: BP 116/63; PULSE 86; RESP 17; TEMP 98.7; O2SAT 98
--- NOTE | 2024-09-12 23:21 | DVHPN2 ---
Progress Note - Dictate Date Seen: Sep 12, 2024 Medical Necessity Reason Pt with a Central, PICC or Fol: Yes The following are medically ne: Powell Catheter Reason for powell catheter: Strict I&O Subjective Patient seen and examined at bedside. Breathing on room air. Overnight events reviewed. vital signs Vital Sign Date Time Temp Pulse Resp B/P (MAP) Pulse Ox O2 Delivery O2 Flow Rate FiO2 09/12/24 21:00 98.7 86 17 116/63 (80) 98 98.7 09/12/24 08:00 Room Air* 0 21 Total Intake and Output 09/11/24 09/11/24 09/12/24 15:00 23:00 07:00 Intake Total 925 ml 450 ml Output Total 2300 ml 1200 ml Balance -1375 ml -750 ml medications Current Medications Medications Dose Ordered Sig/Akiko Route Start Time Stop Time Status Last Admin Dose Admin Vancomycin HCl 200 ml @ 200 mls/hr Q12HR IV 08/10/24 22:00 UNV Enteral Nutritional Formula 240 ml TIDWM PO 08/20/24 18:00 09/12/24 18:24 240 ML Diagnostic Test (Pha) 1 strip Q6HR 08/21/24 12:00 Cancel Insulin Human Regular FOLLOW SLIDING SCALE Q6HR SC 08/21/24 12:00 Cancel Dextrose 50 ml UD IV 08/21/24 10:00 Cancel Melatonin 3 mg HS PO 08/22/24 22:00 09/12/24 21:45 3 MG Midodrine 10 mg TID@0600,1200,1800 PO 08/23/24 12:00 09/12/24 18:25 10 MG Acetaminophen 650 mg Q6HPRN PRN PO 08/25/24 16:00 09/07/24 00:38 650 MG Enteral Nutritional Formula 28.8 gm TID PO 08/26/24 14:00 09/12/24 21:48 28.8 GM Fludrocortisone Acetate 0.1 mg DAILY PO 08/29/24 10:00 09/12/24 10:56 0.1 MG Acetaminophen/ Hydrocodone Bitart 1 tab Q4HPRN PRN PO 08/30/24 11:30 09/12/24 00:54 1 TAB Lactulose 30 ml BIDPRN PRN PO 08/30/24 11:30 09/08/24 05:52 30 ML Pantoprazole Sodium 40 mg DAILY@0600 PO 09/02/24 06:00 09/12/24 05:21 40 MG Thiamine HCl 100 mg DAILY PO 09/02/24 10:00 09/12/24 10:56 100 MG Folic Acid 1 mg DAILY PO 09/02/24 10:00 09/12/24 10:57 1 MG Multivitamins 1 tab DAILY PO 09/02/24 10:00 09/12/24 10:56 1 TAB Apixaban 5 mg BID PO 09/02/24 22:00 09/12/24 21:45 5 MG Carbidopa/Levodopa 0.5 tab TID PO 09/05/24 14:00 09/12/24 21:44 0.5 TAB objective Gen.: Patient lying in bed in no apparent distress. Breathing on room air. Head: Normocephalic, atraumatic. Eyes: EOMI/PERRLA. Ears: Normal hearing. Normal anatomy. Neck/trachea: Trachea midline, supple. Nose: Normal external anatomy. Mouth: Moist mucous membranes. Chest: Decreased air entry bilaterally. No wheezing or rhonchi. Cardiovascular: Positive S1, positive S2. Regular rate and rhythm. Abdomen: Positive bowel sounds in all 4 quadrants. Soft, non-tender, non- distended. : Deferred. Rectal: Deferred. Skin: Warm, dry. Intact. Extremities: 2+ radial pulses bilaterally. No lower extremity edema. Neuro: Awake, alert, oriented x3. No gross motor or sensory deficits. Cranial nerves II through XII intact. Gait not assessed. laboratory and microbiology Laboratory Tests 09/09/24 05:12 Test 09/09/24 05:12 Range/Units Serum Glucose 88 74-106 mg/dL Assessment/Plan Impression: Acute hypoxic respiratory failure Leukocytosis Hypernatremia Parkinson's disease Acute metabolic encephalopathy Decubitus ulcers Sepsis Rhabdomyolysis Acute kidney injury Events: Remains on room air. No respiratory distress. Continue wound care Head of bed elevation Aspiration precautions Supportive care Continue bronchodilators PRN On Florinef Continue vitamin supplementation Incentive spirometry Continue midodrine 10 mg TID Monitor hemoglobin Accu-Cheks for glycemic monitoring Nutritional support Monitor renal function Powell in place - monitor ins and outs Awaiting SNF placement in . Disposition per hospitalist. Labs and imaging reviewed. Rest of plan as noted below. Plan: S/p extubation 08/15/24 Breathing on room air. Supplemental O2 PRN. CT head: No acute intracranial hemorrhage or stroke. Pressors if necessary for hemodynamic support Titrate to keep MAP above 65 mmHg/SBP above 90 mmHg. Continue bronchodilators PRN Monitor hemoglobin Head of bed elevation Aspiration precautions Monitor renal function due to Acute kidney injury. Monitor electrolytes. Supplement as necessary. Monitor sodium due to hypernatremia IV fluid hydration Do not over correct sodium. Sodium 136 (08/29/24) Nutritional support. Accu-Cheks, ISS. GI prophylaxis - Protonix DVT prophylaxis. Prognosis: Guarded given multiple comorbidities. Rest of plan per hospitalist and other consultants. Thank you Dr. Newman for allowing me to participate in this patient's care. Further recommendations will depend on patient's clinical course. Please do not hesitate to contact me if you have any questions or concerns. This medical document was created using an electronic medical record system with [employer] dictation system. Although this document has been carefully reviewed, there may still be some phonetic and typographical errors. These areas are purely typographical due to imperfections of the software programs, and do not reflect any compromise in the patient's medical care. Dietary Evaluation Review Comments: 1. If on Vent Consider Nepro 30ml/hr x 24 hr,( 58g pro 1274 kcal). this will support pt's needs at 100% protein, 94 % kcal. 2. If EN not possible, and NPO > 7 days, consider TPN per pharmacy. 3. If off Vent, and pass speech eval, offer Renal Specific -50g protein 2g Na 3 K Low phos, 4. If off vent on hemo dialysis, pass speech eval, offer Renal Standard 2 gNa 3 K, Low Phos diet. Expected Outcomes/Goals: advance to diet able to eat independently. Plan discussed with: Patient, Other (SRAVANI Rosen) REY REAGAN MD Sep 12, 2024 23:21
[2024-09-13 01:00] VITALS: BP 122/55; PULSE 84; RESP 17; TEMP 98.3; O2SAT 98
[2024-09-13 05:00] VITALS: BP 133/71; PULSE 81; RESP 17; TEMP 98; O2SAT 100
[2024-09-13 09:00] VITALS: BP 108/64; PULSE 78; RESP 16; TEMP 98.4; O2SAT 94
--- NOTE | 2024-09-13 11:20 | DVHPN2 ---
Subjective Patient seen And examined at bedside.. Complain of weak and tired. Daughter at bedside. Reviewed: Care Plan, H&P, Labs, Medications, Previous Orders, Radiology, Other (Consultants) Changes from previous H/P or p: No Changes General: Per HPI Objective Vitals Vital Signs Date Time Temp Pulse Resp B/P (MAP) Pulse Ox O2 Delivery O2 Flow Rate FiO2 09/13/24 08:00 Room Air* 0 21 09/13/24 05:00 98.0 81 17 133/71 (91) 100 98.0 Intake/Output Intake and Output 09/13/24 07:00 Intake Total 1970 ml Output Total 2500 ml Balance -530 ml Intake Oral 1970 ml Output Urine Total 2500 ml General Appearance: Alert, Oriented X3, Cooperative, No acute distress HEENT: Atraumatic, PERRLA Lungs: Clear to auscultation, Normal air movement Cardiovascular: Regular rate, Normal S1, Normal S2 Abdomen: Normal bowel sounds, Soft, No tenderness Musculoskeletal: Weak motor strength RUE, Weak motor strength LUE, Weak motor strength RLE, Weak motor strength LLE Extremities: Other Skin: Wounds Psych/Mental Status: Other Medications Current Medications Medications Dose Ordered Sig/Akiko Route Start Time Stop Time Status Last Admin Dose Admin Vancomycin HCl 200 ml @ 200 mls/hr Q12HR IV 08/10/24 22:00 UNV Enteral Nutritional Formula 240 ml TIDWM PO 08/20/24 18:00 09/13/24 09:31 240 ML Diagnostic Test (Pha) 1 strip Q6HR 08/21/24 12:00 Cancel Insulin Human Regular FOLLOW SLIDING SCALE Q6HR SC 08/21/24 12:00 Cancel Dextrose 50 ml UD IV 08/21/24 10:00 Cancel Melatonin 3 mg HS PO 08/22/24 22:00 09/12/24 21:45 3 MG Midodrine 10 mg TID@0600,1200,1800 PO 08/23/24 12:00 09/13/24 05:21 10 MG Acetaminophen 650 mg Q6HPRN PRN PO 08/25/24 16:00 09/07/24 00:38 650 MG Enteral Nutritional Formula 28.8 gm TID PO 08/26/24 14:00 09/13/24 05:23 28.8 GM Fludrocortisone Acetate 0.1 mg DAILY PO 08/29/24 10:00 09/13/24 09:32 0.1 MG Acetaminophen/ Hydrocodone Bitart 1 tab Q4HPRN PRN PO 08/30/24 11:30 09/12/24 00:54 1 TAB Lactulose 30 ml BIDPRN PRN PO 08/30/24 11:30 09/08/24 05:52 30 ML Pantoprazole Sodium 40 mg DAILY@0600 PO 09/02/24 06:00 09/13/24 05:21 40 MG Thiamine HCl 100 mg DAILY PO 09/02/24 10:00 09/13/24 09:32 100 MG Folic Acid 1 mg DAILY PO 09/02/24 10:00 09/13/24 09:32 1 MG Multivitamins 1 tab DAILY PO 09/02/24 10:00 09/13/24 09:32 1 TAB Apixaban 5 mg BID PO 09/02/24 22:00 09/13/24 09:32 5 MG Carbidopa/Levodopa 0.5 tab TID PO 09/05/24 14:00 09/13/24 05:21 0.5 TAB Laboratory Results Laboratory Tests 09/09/24 05:12 Urinalysis Test 08/11/24 13:02 Urine Color Yellow (Yellow) Urine Clarity Turbid (Clear) H Urine pH 5.5 (5.0-9.0) Urine Specific [place] 1.018 (1.001-1.035) Urine Protein 1+ (Negative) H Urine Ketones Negative (Negative) Urine Blood 3+ /uL (Negative) H Urine Nitrite Negative (Negative) Urine Bilirubin Negative (Negative) Urine Urobilinogen 4 mg/dL (Negative) H Urine Leukocyte Esterase 1+ /uL (Negative) Urine RBC 13 /hpf (0 - 3) Urine WBC 14 /hpf (0 - 3) Urine Squamous Epithelial Cells Few /hpf (<5) Urine Bacteria Few /hpf (None Seen) H Urine Hyaline Casts Few /lpf (0 - 2) Urine Granular Casts Few /lpf (0) Urine Mucus Few (None Seen) Urine Creatinine 67.44 mg/dL (30.0-125.0) Urine Protein/Creatinine Ratio 1.00 Urine Sodium 32 mmol/L (40-220) L Urine Glucose Normal mg/dL (Normal) Urine Total Protein 67.3 mg/dL (1-14) H Microbiology Microbiology Date/Time Source Procedure Growth Status 09/07/24 18:00 Nose MRSA Screen - Final Complete 08/31/24 09:35 Urine - [place] Urine Culture - Final Complete 08/26/24 15:45 Penis Gram Stain - Final Complete 08/26/24 15:45 Wound Culture - Final Pseudo fluorescence/putida Enterococcus faecium - VRE Presumptive Ema albicans Complete 08/12/24 19:02 Bronchial Washings Gram Stain - Final Resulted 08/12/24 19:02 Respiratory Culture - Preliminary Klebsiella pneumoniae Presumptive Ema albicans Resulted 08/10/24 14:08 Blood Blood Culture - Final NO GROWTH AFTER 5 DAYS OF INCUBATION. Complete Labs and/or images reviewed: Labs reviewed by me Assessment/Plan Assessment/Plan Sepsis with septic shock Metabolic encephalopathy, Wound infection of left buttock and back Parkinson's disease R leg DVT Hypernatremia: resolved DAYLIN: Better Respiratory failure: Better PLAN: Continuing current management. Continuing with Wound care Continuing with IV antibiotics Zyvox and meropenem Infectious disease consult appreciated Continuing with midodrine, Florinef, Continuing with morphine and [place] for pain control Wound I and D was done by surgeon Continuing Sinemet Discharge planning to snf Waiting for insurance approval. According to social media marketing analyst, [facility] had declined his residential home facility. The insurance company one a peer to peer with me prior to consider him of residential home facility. I am still waiting for peer to peer. They haven't call me yet. Per daughter she had switch the patient to straight Medicare/Medicaid on September 17, 2024. She hope that we can place the patient to residential home facility near [place] where she resides so she came come and visit him better than here which is far away from where she [place]. Plan discussed with: Patient, Daughter Date of Service: Sep 13, 2024 Billing Provider: MAGALYS LAMAS MD Common Visit Codes: [id number] INP/OBS CARE(HIGH) MAGALYS LAMAS MD Sep 13, 2024 11:19
[2024-09-13 13:00] VITALS: BP 83/49; PULSE 88; RESP 18; TEMP 99.5; O2SAT 98
[2024-09-13 17:00] VITALS: BP 112/57; PULSE 86; RESP 18; TEMP 97.8; O2SAT 99
--- NOTE | 2024-09-13 20:37 | DVHPN2 ---
Progress Note - Dictate Date Seen: Sep 13, 2024 Medical Necessity Reason Pt with a Central, PICC or Fol: Yes The following are medically ne: Powell Catheter Reason for powell catheter: Strict I&O Subjective Patient seen and examined at bedside. Breathing on room air. Overnight events reviewed. vital signs Vital Sign Date Time Temp Pulse Resp B/P (MAP) Pulse Ox O2 Delivery O2 Flow Rate FiO2 09/13/24 17:00 97.8 86 18 112/57 (75) 99 97.8 09/13/24 08:00 Room Air* 0 21 Total Intake and Output 09/12/24 09/12/24 09/13/24 15:00 23:00 07:00 Intake Total 980 ml 340 ml 650 ml Output Total 700 ml 300 ml 1500 ml Balance 280 ml 40 ml -850 ml medications Current Medications Medications Dose Ordered Sig/Akiko Route Start Time Stop Time Status Last Admin Dose Admin Vancomycin HCl 200 ml @ 200 mls/hr Q12HR IV 08/10/24 22:00 UNV Enteral Nutritional Formula 240 ml TIDWM PO 08/20/24 18:00 09/13/24 18:27 240 ML Diagnostic Test (Pha) 1 strip Q6HR 08/21/24 12:00 Cancel Insulin Human Regular FOLLOW SLIDING SCALE Q6HR SC 08/21/24 12:00 Cancel Dextrose 50 ml UD IV 08/21/24 10:00 Cancel Melatonin 3 mg HS PO 08/22/24 22:00 09/12/24 21:45 3 MG Midodrine 10 mg TID@0600,1200,1800 PO 08/23/24 12:00 09/13/24 18:27 10 MG Acetaminophen 650 mg Q6HPRN PRN PO 08/25/24 16:00 09/07/24 00:38 650 MG Enteral Nutritional Formula 28.8 gm TID PO 08/26/24 14:00 09/13/24 14:00 28.8 GM Fludrocortisone Acetate 0.1 mg DAILY PO 08/29/24 10:00 09/13/24 09:32 0.1 MG Acetaminophen/ Hydrocodone Bitart 1 tab Q4HPRN PRN PO 08/30/24 11:30 09/12/24 00:54 1 TAB Lactulose 30 ml BIDPRN PRN PO 08/30/24 11:30 09/08/24 05:52 30 ML Pantoprazole Sodium 40 mg DAILY@0600 PO 09/02/24 06:00 09/13/24 05:21 40 MG Thiamine HCl 100 mg DAILY PO 09/02/24 10:00 09/13/24 09:32 100 MG Folic Acid 1 mg DAILY PO 09/02/24 10:00 09/13/24 09:32 1 MG Multivitamins 1 tab DAILY PO 09/02/24 10:00 09/13/24 09:32 1 TAB Apixaban 5 mg BID PO 09/02/24 22:00 09/13/24 09:32 5 MG Carbidopa/Levodopa 0.5 tab TID PO 09/05/24 14:00 09/13/24 14:30 0.5 TAB objective Gen.: Patient lying in bed in no apparent distress. Breathing on room air. Head: Normocephalic, atraumatic. Eyes: EOMI/PERRLA. Ears: Normal hearing. Normal anatomy. Neck/trachea: Trachea midline, supple. Nose: Normal external anatomy. Mouth: Moist mucous membranes. Chest: Decreased air entry bilaterally. No wheezing or rhonchi. Cardiovascular: Positive S1, positive S2. Regular rate and rhythm. Abdomen: Positive bowel sounds in all 4 quadrants. Soft, non-tender, non- distended. : Deferred. Rectal: Deferred. Skin: Warm, dry. Intact. Extremities: 2+ radial pulses bilaterally. No lower extremity edema. Neuro: Awake, alert, oriented x3. No gross motor or sensory deficits. Cranial nerves II through XII intact. Gait not assessed. laboratory and microbiology Laboratory Tests 09/09/24 05:12 Test 09/09/24 05:12 Range/Units Serum Glucose 88 74-106 mg/dL Assessment/Plan Impression: Acute hypoxic respiratory failure Leukocytosis Hypernatremia Parkinson's disease Acute metabolic encephalopathy Decubitus ulcers Sepsis Rhabdomyolysis Acute kidney injury Events: Remains on room air. No respiratory distress. Continue wound care Head of bed elevation Aspiration precautions Supportive care Continue bronchodilators PRN On Florinef Continue vitamin supplementation Incentive spirometry Continue midodrine 10 mg TID On Eliquis Monitor hemoglobin Accu-Cheks for glycemic monitoring Nutritional support Monitor renal function Powell in place - monitor ins and outs Protonix for GI prophylaxis Awaiting SNF placement in . Disposition per hospitalist. Labs and imaging reviewed. Rest of plan as noted below. Plan: S/p extubation 08/15/24 Breathing on room air. Supplemental O2 PRN. CT head: No acute intracranial hemorrhage or stroke. Pressors if necessary for hemodynamic support Titrate to keep MAP above 65 mmHg/SBP above 90 mmHg. Continue bronchodilators PRN Monitor hemoglobin Head of bed elevation Aspiration precautions Monitor renal function due to Acute kidney injury. Monitor electrolytes. Supplement as necessary. Monitor sodium due to hypernatremia IV fluid hydration Do not over correct sodium. Sodium 136 (08/29/24) Nutritional support. Accu-Cheks, ISS. GI prophylaxis - Protonix DVT prophylaxis. Prognosis: Guarded given multiple comorbidities. Rest of plan per hospitalist and other consultants. Thank you Dr. Newman for allowing me to participate in this patient's care. Further recommendations will depend on patient's clinical course. Please do not hesitate to contact me if you have any questions or concerns. This medical document was created using an electronic medical record system with [employer] dictation system. Although this document has been carefully reviewed, there may still be some phonetic and typographical errors. These areas are purely typographical due to imperfections of the software programs, and do not reflect any compromise in the patient's medical care. Dietary Evaluation Review Comments: 1. If on Vent Consider Nepro 30ml/hr x 24 hr,( 58g pro 1274 kcal). this will support pt's needs at 100% protein, 94 % kcal. 2. If EN not possible, and NPO > 7 days, consider TPN per pharmacy. 3. If off Vent, and pass speech eval, offer Renal Specific -50g protein 2g Na 3 K Low phos, 4. If off vent on hemo dialysis, pass speech eval, offer Renal Standard 2 gNa 3 K, Low Phos diet. Expected Outcomes/Goals: advance to diet able to eat independently. Plan discussed with: Patient, Other (SRAVANI Rosen) REY REAGAN MD Sep 13, 2024 20:37
[2024-09-13 21:00] VITALS: BP 97/55; PULSE 84; RESP 18; TEMP 98.2; O2SAT 98
[2024-09-14 05:00] VITALS: BP 105/56; PULSE 80; RESP 18; TEMP 98.4; O2SAT 100
[2024-09-14 08:36] VITALS: BP 130/55; PULSE 80; RESP 18; TEMP 98.9; O2SAT 99
--- NOTE | 2024-09-14 10:30 | DVHPN2 ---
Subjective Patient seen And examined at bedside.. Complain of weak and tired.Gross Hematuria in the Welch bag. Reviewed: Care Plan, H&P, Labs, Medications, Previous Orders, Radiology, Other (Consultants) Changes from previous H/P or p: No Changes General: Per HPI Objective Vitals Vital Signs Date Time Temp Pulse Resp B/P (MAP) Pulse Ox O2 Delivery O2 Flow Rate FiO2 09/14/24 08:36 98.9 80 18 130/55 (80) 99 98.9 09/14/24 07:39 Room Air* 0 21 Intake/Output Intake and Output 09/14/24 07:00 Intake Total 925 ml Output Total 2000 ml Balance -1075 ml Intake Oral 925 ml Output Urine Total 2000 ml General Appearance: Alert, Oriented X3, Cooperative, No acute distress HEENT: Atraumatic, PERRLA Lungs: Clear to auscultation, Normal air movement Cardiovascular: Regular rate, Normal S1, Normal S2 Abdomen: Normal bowel sounds, Soft, No tenderness Musculoskeletal: Weak motor strength RUE, Weak motor strength LUE, Weak motor strength RLE, Weak motor strength LLE Extremities: Other Skin: Wounds Psych/Mental Status: Other Medications Current Medications Medications Dose Ordered Sig/Akiko Route Start Time Stop Time Status Last Admin Dose Admin Vancomycin HCl 200 ml @ 200 mls/hr Q12HR IV 08/10/24 22:00 UNV Enteral Nutritional Formula 240 ml TIDWM PO 08/20/24 18:00 09/14/24 08:41 240 ML Diagnostic Test (Pha) 1 strip Q6HR 08/21/24 12:00 Cancel Insulin Human Regular FOLLOW SLIDING SCALE Q6HR SC 08/21/24 12:00 Cancel Dextrose 50 ml UD IV 08/21/24 10:00 Cancel Melatonin 3 mg HS PO 08/22/24 22:00 09/13/24 22:43 3 MG Midodrine 10 mg TID@0600,1200,1800 PO 08/23/24 12:00 09/14/24 05:33 10 MG Acetaminophen 650 mg Q6HPRN PRN PO 08/25/24 16:00 09/07/24 00:38 650 MG Enteral Nutritional Formula 28.8 gm TID PO 08/26/24 14:00 09/14/24 05:34 28.8 GM Fludrocortisone Acetate 0.1 mg DAILY PO 08/29/24 10:00 09/14/24 08:41 0.1 MG Acetaminophen/ Hydrocodone Bitart 1 tab Q4HPRN PRN PO 08/30/24 11:30 09/12/24 00:54 1 TAB Lactulose 30 ml BIDPRN PRN PO 08/30/24 11:30 09/08/24 05:52 30 ML Pantoprazole Sodium 40 mg DAILY@0600 PO 09/02/24 06:00 09/14/24 05:33 40 MG Thiamine HCl 100 mg DAILY PO 09/02/24 10:00 09/14/24 08:41 100 MG Folic Acid 1 mg DAILY PO 09/02/24 10:00 09/14/24 08:41 1 MG Multivitamins 1 tab DAILY PO 09/02/24 10:00 09/14/24 08:41 1 TAB Apixaban 5 mg BID PO 09/02/24 22:00 09/14/24 08:41 5 MG Carbidopa/Levodopa 0.5 tab TID PO 09/05/24 14:00 09/14/24 05:33 0.5 TAB Laboratory Results Laboratory Tests 09/09/24 05:12 Urinalysis Test 08/11/24 13:02 Urine Color Yellow (Yellow) Urine Clarity Turbid (Clear) H Urine pH 5.5 (5.0-9.0) Urine Specific [place] 1.018 (1.001-1.035) Urine Protein 1+ (Negative) H Urine Ketones Negative (Negative) Urine Blood 3+ /uL (Negative) H Urine Nitrite Negative (Negative) Urine Bilirubin Negative (Negative) Urine Urobilinogen 4 mg/dL (Negative) H Urine Leukocyte Esterase 1+ /uL (Negative) Urine RBC 13 /hpf (0 - 3) Urine WBC 14 /hpf (0 - 3) Urine Squamous Epithelial Cells Few /hpf (<5) Urine Bacteria Few /hpf (None Seen) H Urine Hyaline Casts Few /lpf (0 - 2) Urine Granular Casts Few /lpf (0) Urine Mucus Few (None Seen) Urine Creatinine 67.44 mg/dL (30.0-125.0) Urine Protein/Creatinine Ratio 1.00 Urine Sodium 32 mmol/L (40-220) L Urine Glucose Normal mg/dL (Normal) Urine Total Protein 67.3 mg/dL (1-14) H Microbiology Microbiology Date/Time Source Procedure Growth Status 09/07/24 18:00 Nose MRSA Screen - Final Complete 08/31/24 09:35 Urine - [place] Urine Culture - Final Complete 08/26/24 15:45 Penis Gram Stain - Final Complete 08/26/24 15:45 Wound Culture - Final Pseudo fluorescence/putida Enterococcus faecium - VRE Presumptive Ema albicans Complete 08/12/24 19:02 Bronchial Washings Gram Stain - Final Resulted 08/12/24 19:02 Respiratory Culture - Preliminary Klebsiella pneumoniae Presumptive Ema albicans Resulted 08/10/24 14:08 Blood Blood Culture - Final NO GROWTH AFTER 5 DAYS OF INCUBATION. Complete Labs and/or images reviewed: Labs reviewed by me Assessment/Plan Assessment/Plan Sepsis with septic shock Metabolic encephalopathy, Wound infection of left buttock and back Parkinson's disease R leg DVT Hypernatremia: resolved [place]: Better Respiratory failure: Better Gross hematuria PLAN: Continuing current management. Continuing with Wound care Continuing with IV antibiotics Zyvox and meropenem Infectious disease consult appreciated Continuing with midodrine, Florinef, Continuing with morphine and [place] for pain control Wound I and D was done by surgeon Continuing Sinemet Discharge planning to snf Waiting for insurance approval. According to social security assessor, Amena had declined his custodial home facility. The insurance company one a peer to peer with me prior to consider him of custodial home facility. I am still waiting for peer to peer. They haven't call me yet. Urology consult for gross hematuria. Flush Welch. Will follow labs Per daughter she had switch the patient to straight Medicare/Medicaid on September 17, 2024. She hope that we can place the patient to custodial home facility near [place] where she resides so she came come and visit him better than here which is far away from where she lives. Plan discussed with: Other (RN) Date of Service: Sep 14, 2024 Billing Provider: MAGALYS LAMAS MD Common Visit Codes: [id number] INP/OBS CARE(HIGH) MAGALYS LAMAS MD Sep 14, 2024 10:30
--- NOTE | 2024-09-14 10:40 | DVHPN2 ---
Progress Note - Dictate Date Seen: Sep 14, 2024 Medical Necessity Reason Pt with a Central, PICC or Fol: Yes The following are medically ne: Powell Catheter Reason for powell catheter: Strict I&O Subjective Mr. Howard is a 78 years old right-handed gentleman with a history of Parkinson's disease, the patient was admitted on 08/10 24 with a chief company of altered mental status I have seen and examined the patient, I have discussed with his nurse and sitter, he is awake, oriented to person and place, he knows year, socially appropriate No hallucination Mild tremor in both hands, looks symmetric, cogwheeling in both wrists, maybe stronger on left side Respiratory culture, 08/12/2024: Klebsiella pneumoniae Blood culture, 08/10/24: Negative UDS, 08/10/2024: Negative Urinalysis, 08/10/2024: WBC 10, urine leukocyte: Trace WBC/HB/PLT/MCV, 08/20/24: 6.5/10.5/205/88.8 PT/INR/PTT, 08/14/2024: 13.9/1.34/30.9 Na, 08/10/2024: 170, 168, 08/11/2024: 165, 08/12/2024: 164, 08/13/2024: 161, 08/14/2024: 156, 08/19/2024: 149, 08/20/24: 149, 08/23/2023: 142 BUN/CR, 08/18/2024: 45/1.01, 08/20/2024: 42/1.07 CPK, 08/10/2024: 2513, 08/11/2024: 2525, 08/12/2024: 2844, 08/13/2024: 4268, 08/21/2024: 510 TBI/AST/ALT/AP, 08/20/2024: 1.4/148/210/179, 08/23/2024: 08/23/2024: 0.9/61/104/180 Ammonia, 08/23/2024: < 10 Hepatitis panel, 08/11/2024: Negative TSH, 08/11/2024: 4.48 Venous Doppler, lower extremities, 08/13/2024: No left DVT. Positive DVT involving the right lower extremity common femoral vein, femoral vein, popliteal vein and calf Chest x-ray, 08/10/2024: No acute cardiopulmonary disease. Elevation of the left hemidiaphragm. Enteric tube and endotracheal tube are in satisfactory position Chest x-ray, 08/21/2024: Increased congestion CT head, 08/10/2024: 1. No acute intracranial hemorrhage, midline shift or mass effect. 2. Generalized brain atrophy. 3. Small vessel ischemic/degenerative changes. 4. If symptoms persists, further evaluation with MRI is recommended MRI head, 08/19/2024: 1. No evidence of acute intracranial abnormality. 2. Motion limited study vital signs Vital Sign Date Time Temp Pulse Resp B/P (MAP) Pulse Ox O2 Delivery O2 Flow Rate FiO2 09/14/24 08:36 98.9 80 18 130/55 (80) 99 98.9 09/14/24 07:39 Room Air* 0 21 Total Intake and Output 09/13/24 09/13/24 09/14/24 15:00 23:00 07:00 Intake Total 375 ml 550 ml Output Total 950 ml 1050 ml Balance -575 ml -500 ml medications Current Medications Medications Dose Ordered Sig/Akiko Route Start Time Stop Time Status Last Admin Dose Admin Vancomycin HCl 200 ml @ 200 mls/hr Q12HR IV 08/10/24 22:00 UNV Enteral Nutritional Formula 240 ml TIDWM PO 08/20/24 18:00 09/14/24 08:41 240 ML Diagnostic Test (Pha) 1 strip Q6HR 08/21/24 12:00 Cancel Insulin Human Regular FOLLOW SLIDING SCALE Q6HR SC 08/21/24 12:00 Cancel Dextrose 50 ml UD IV 08/21/24 10:00 Cancel Melatonin 3 mg HS PO 08/22/24 22:00 09/13/24 22:43 3 MG Midodrine 10 mg TID@0600,1200,1800 PO 08/23/24 12:00 09/14/24 05:33 10 MG Acetaminophen 650 mg Q6HPRN PRN PO 08/25/24 16:00 09/07/24 00:38 650 MG Enteral Nutritional Formula 28.8 gm TID PO 08/26/24 14:00 09/14/24 05:34 28.8 GM Fludrocortisone Acetate 0.1 mg DAILY PO 08/29/24 10:00 09/14/24 08:41 0.1 MG Acetaminophen/ Hydrocodone Bitart 1 tab Q4HPRN PRN PO 08/30/24 11:30 09/12/24 00:54 1 TAB Lactulose 30 ml BIDPRN PRN PO 08/30/24 11:30 09/08/24 05:52 30 ML Pantoprazole Sodium 40 mg DAILY@0600 PO 09/02/24 06:00 09/14/24 05:33 40 MG Thiamine HCl 100 mg DAILY PO 09/02/24 10:00 09/14/24 08:41 100 MG Folic Acid 1 mg DAILY PO 09/02/24 10:00 09/14/24 08:41 1 MG Multivitamins 1 tab DAILY PO 09/02/24 10:00 09/14/24 08:41 1 TAB Apixaban 5 mg BID PO 09/02/24 22:00 09/14/24 08:41 5 MG Carbidopa/Levodopa 0.5 tab TID PO 09/05/24 14:00 09/14/24 05:33 0.5 TAB objective General: the patient is well developed and nourished. No acute distress. MENTAL STATUS: Subjective SPEECH, LANGUAGE, HIGHER CORTICAL FUNCTION: no aphasia or dysathria. CRANIAL NERVES: Pupils are equal, round and reactive. EOMs full and conjugate. No nystagmus. Facial sensation intact in all three divisions bilaterally. Mandibular strength intact. Facial muscles symmetrical and strength intact. SENSATION: Sensation to touch and pinprick is Ok MOTOR: Normal muscle bulk. No fasciculations. He moves the arms REFLEXES: Deep tendon reflexes normal and symmetrical. No pathological reflexes. CEREBELLAR/COORDINATION: Deferred GAIT/STATION: deferred laboratory and microbiology Laboratory Tests 09/09/24 05:12 Test 09/09/24 05:12 Range/Units Serum Glucose 88 74-106 mg/dL Problem List Altered mental status/metabolic encephalopathy secondary to Sepsis Septic shock Respiratory failure Urinary tract infection Dehydration Acute kidney failure Hypernatremia ? Levodopa side effects Rhabdomyolysis Hand tremors, gait disturbance, low voice Parkinson's disease Rule out essential tremor Pressure sores DVT Assessment/Plan Monitoring Supportive treatment Oxygen IV antibiotics Eliquis 5 mg b.i.d. Sinemet 25/100, 0.5 tablets, t.i.d. Midodrine Current pain management Okay to use Tylenol for pain control Wound care GI prophylaxis Pulmonary on case Nephrology on case Surgery on case More recommendation per clinical course This medical document was created using an electronic medical record system with [employer] dictation system. Although this document has been carefully reviewed, there may still be some phonetic and typographical errors. These areas are purely typographical due to imperfections of the software programs, and do not reflect any compromise in the patient's medical care Prognosis poor Dietary Evaluation Review Comments: 1. If on Vent Consider Nepro 30ml/hr x 24 hr,( 58g pro 1274 kcal). this will support pt's needs at 100% protein, 94 % kcal. 2. If EN not possible, and NPO > 7 days, consider TPN per pharmacy. 3. If off Vent, and pass speech eval, offer Renal Specific -50g protein 2g Na 3 K Low phos, 4. If off vent on hemo dialysis, pass speech eval, offer Renal Standard 2 gNa 3 K, Low Phos diet. Expected Outcomes/Goals: advance to diet able to eat independently. Plan discussed with: Other EVELINE HUNTER MD Sep 14, 2024 10:40
[2024-09-14 11:37] VITALS: BP 110/60; PULSE 86; RESP 16; TEMP 98.3; O2SAT 99
[2024-09-14 14:52] LABS: Basophils # (auto) 0 10 ^3/uL (0-0.2); Basophils % (auto) 0.5 % (0.0-2.0); Eosinophils # (auto) 0.1 10 ^3/uL (0-0.8); Hematocrit 29.4 % (41.0-53.0); Hemoglobin 9.7 g/dL (13.5-17.5); Lymphocytes # (auto) 1.1 10 ^3/uL (0.4-5.4); Lymphocytes % (auto) 17.6 % (10.0-50.0); Mean Corpuscular Hemoglobin 30.2 pg (28.0-32.0); Mean Corpuscular Hgb Conc. 33.1 g/dL (32.0-36.0); Mean Corpuscular Volume 91.4 fL (80.0-100.0); Monocytes # (auto) 0.5 10 ^3/uL (0-1.3); Monocytes % (auto) 8.1 % (0.0-12.0); Neutrophils # (auto) 4.7 10 ^3/uL (1.6-8.6); Neutrophils % (auto) 72.8 % (37.0-80.0); Nucleated Red Blood Cells % 0.2 %; Platelet Count (auto) 231 10^3/uL (140-450); Red Blood Cells 3.22 10^6/uL (4.5-5.90); White Blood Cell 6.5 10^3/uL (4.4-10.8)
[2024-09-14 15:03] LABS: Alanine Aminotransferase 32 U/L (7-40); Albumin 3.7 g/dL (3.2-4.8); Anion Gap 5 (5-15); Aspartate Aminotransferase 29 U/L (13-40); BUN/Creatinine Ratio 19.7 (10.0-20.0); Blood Urea Nitrogen 14 mg/dL (9-23); Calcium 8.9 mg/dL (8.7-10.4); Carbon Dioxide 29 mmol/L (20-31); Chloride 99 mmol/L (98-107); Potassium 3.9 mmol/L (3.5-5.1)
[2024-09-14 15:04] LABS: Bilirubin, Total 0.5 mg/dL (0.2-1.0); Total Protein 6.6 g/dL (5.7-8.2)
[2024-09-14 15:09] LABS: Alkaline Phosphatase 217 U/L (46-116); Glucose 123 mg/dL (74-106); Sodium 133 mmol/L (136-145)
[2024-09-14 17:00] VITALS: BP 106/63; PULSE 80; RESP 18; TEMP 97.9; O2SAT 100
--- NOTE | 2024-09-14 18:19 | DVHPN2 ---
Consult Progress Note Date Seen: Sep 11, 2024 Subjective Patient reports: Feels better (no diarrhea or rash) Objective vital signs Vital Sign Date Time Temp Pulse Resp B/P (MAP) Pulse Ox O2 Delivery O2 Flow Rate FiO2 09/14/24 17:00 97.9 80 18 106/63 (77) 100 97.9 09/14/24 07:39 Room Air* 0 21 Total Intake and Output 09/13/24 09/13/24 09/14/24 15:00 23:00 07:00 Intake Total 375 ml 550 ml Output Total 950 ml 1050 ml Balance -575 ml -500 ml medications Current Medications Medications Dose Ordered Sig/Akiko Route Start Time Stop Time Status Last Admin Dose Admin Vancomycin HCl 200 ml @ 200 mls/hr Q12HR IV 08/10/24 22:00 UNV Enteral Nutritional Formula 240 ml TIDWM PO 08/20/24 18:00 09/14/24 18:00 240 ML Diagnostic Test (Pha) 1 strip Q6HR 08/21/24 12:00 Cancel Insulin Human Regular FOLLOW SLIDING SCALE Q6HR SC 08/21/24 12:00 Cancel Dextrose 50 ml UD IV 08/21/24 10:00 Cancel Melatonin 3 mg HS PO 08/22/24 22:00 09/13/24 22:43 3 MG Midodrine 10 mg TID@0600,1200,1800 PO 08/23/24 12:00 09/14/24 18:00 10 MG Acetaminophen 650 mg Q6HPRN PRN PO 08/25/24 16:00 09/07/24 00:38 650 MG Enteral Nutritional Formula 28.8 gm TID PO 08/26/24 14:00 09/14/24 14:00 28.8 GM Fludrocortisone Acetate 0.1 mg DAILY PO 08/29/24 10:00 09/14/24 08:41 0.1 MG Acetaminophen/ Hydrocodone Bitart 1 tab Q4HPRN PRN PO 08/30/24 11:30 09/14/24 12:15 1 TAB Lactulose 30 ml BIDPRN PRN PO 08/30/24 11:30 09/08/24 05:52 30 ML Pantoprazole Sodium 40 mg DAILY@0600 PO 09/02/24 06:00 09/14/24 05:33 40 MG Thiamine HCl 100 mg DAILY PO 09/02/24 10:00 09/14/24 08:41 100 MG Folic Acid 1 mg DAILY PO 09/02/24 10:00 09/14/24 08:41 1 MG Multivitamins 1 tab DAILY PO 09/02/24 10:00 09/14/24 08:41 1 TAB Apixaban 5 mg BID PO 09/02/24 22:00 09/14/24 08:41 5 MG Carbidopa/Levodopa 0.5 tab TID PO 09/05/24 14:00 09/14/24 14:49 0.5 TAB PHYSICAL EXAM: - GENERAL: Alert and oriented x 3. No acute distress. Well-nourished. - EYES: EOMI. Anicteric. - HENT: Moist mucous membranes. No scleral icterus. No cervical lymphadenopathy. - LUNGS: Clear to auscultation bilaterally. No accessory muscle use. - CARDIOVASCULAR: Regular rate and rhythm. No murmur. No JVD. - ABDOMEN: Soft, non-tender and non-distended. No palpable masses. - EXTREMITIES: No edema. Non-tender.?SKIN: No rashes or lesions. Warm. - NEUROLOGIC: No focal neurological deficits. CN II-XII grossly intact, but not individually tested - PSYCHIATRIC: Cooperative. Appropriate mood and affect. laboratory and microbiology Laboratory Tests 09/14/24 14:28 Test 09/14/24 14:28 Range/Units Serum Glucose 123 H 74-106 mg/dL Problem List/Assessment/Plan Problems(with codes): (1) Rhabdomyolysis (2) Decubitus ulcers (3) Hypernatremia (4) Renal failure (5) Sepsis (6) Altered mental state (7) Severe dehydration Problem List/Assessment/Plan ASSESSMENT AND PLAN: ID Problem List: - Chronic sacral decubitus ulcer - Thigh cellulitis - Klebsiella pneumonia - VRE colonization - Sepsis - Penile ulcer DVT Assessment This is a 78-year-old male with a known history of chronic decubitus ulcer. He was found altered and incontinent about three weeks ago, requiring ICU admission and vasopressors. Multiple antibiotic regimens have been used, including meropenem, vancomycin, linezolid, ceftriaxone, azithromycin, and piperacillin- tazobactam (Zosyn). Recent wound cultures grew Klebsiella pneumoniae and VRE (felt to be colonization rather than an active infection). He also has a large left lateral thigh ulceration with necrosis and drainage, non-healing upper back wounds, and a penile ulcer. He is currently off vasopressors and remains on apixaban therapy for an identified DVT. 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 Plan is subject to change pending new incoming information/diagnostics. Thank you for this consult. ID will continue to follow. Please contact Infectious Disease for any questions or concerns. Electronically signed by: Gil Miller MD, 09/10/2024 Plan discussed with: Patient Dietary Evaluation Review Comments: 1. If on Vent Consider Nepro 30ml/hr x 24 hr,( 58g pro 1274 kcal). this will support pt's needs at 100% protein, 94 % kcal. 2. If EN not possible, and NPO > 7 days, consider TPN per pharmacy. 3. If off Vent, and pass speech eval, offer Renal Specific -50g protein 2g Na 3 K Low phos, 4. If off vent on hemo dialysis, pass speech eval, offer Renal Standard 2 gNa 3 K, Low Phos diet. Expected Outcomes/Goals: advance to diet able to eat independently. GIL MILLER MD Sep 14, 2024 18:19
--- NOTE | 2024-09-14 18:24 | DVHPN2 ---
Consult Progress Note Date Seen: Sep 13, 2024 Subjective Patient reports: Feels better (sacral ulcer stable. ) Objective vital signs Vital Sign Date Time Temp Pulse Resp B/P (MAP) Pulse Ox O2 Delivery O2 Flow Rate FiO2 09/14/24 17:00 97.9 80 18 106/63 (77) 100 97.9 09/14/24 07:39 Room Air* 0 21 Total Intake and Output 09/13/24 09/13/24 09/14/24 15:00 23:00 07:00 Intake Total 375 ml 550 ml Output Total 950 ml 1050 ml Balance -575 ml -500 ml medications Current Medications Medications Dose Ordered Sig/Akiko Route Start Time Stop Time Status Last Admin Dose Admin Vancomycin HCl 200 ml @ 200 mls/hr Q12HR IV 08/10/24 22:00 UNV Enteral Nutritional Formula 240 ml TIDWM PO 08/20/24 18:00 09/14/24 18:00 240 ML Diagnostic Test (Pha) 1 strip Q6HR 08/21/24 12:00 Cancel Insulin Human Regular FOLLOW SLIDING SCALE Q6HR SC 08/21/24 12:00 Cancel Dextrose 50 ml UD IV 08/21/24 10:00 Cancel Melatonin 3 mg HS PO 08/22/24 22:00 09/13/24 22:43 3 MG Midodrine 10 mg TID@0600,1200,1800 PO 08/23/24 12:00 09/14/24 18:00 10 MG Acetaminophen 650 mg Q6HPRN PRN PO 08/25/24 16:00 09/07/24 00:38 650 MG Enteral Nutritional Formula 28.8 gm TID PO 08/26/24 14:00 09/14/24 14:00 28.8 GM Fludrocortisone Acetate 0.1 mg DAILY PO 08/29/24 10:00 09/14/24 08:41 0.1 MG Acetaminophen/ Hydrocodone Bitart 1 tab Q4HPRN PRN PO 08/30/24 11:30 09/14/24 12:15 1 TAB Lactulose 30 ml BIDPRN PRN PO 08/30/24 11:30 09/08/24 05:52 30 ML Pantoprazole Sodium 40 mg DAILY@0600 PO 09/02/24 06:00 09/14/24 05:33 40 MG Thiamine HCl 100 mg DAILY PO 09/02/24 10:00 09/14/24 08:41 100 MG Folic Acid 1 mg DAILY PO 09/02/24 10:00 09/14/24 08:41 1 MG Multivitamins 1 tab DAILY PO 09/02/24 10:00 09/14/24 08:41 1 TAB Apixaban 5 mg BID PO 09/02/24 22:00 09/14/24 08:41 5 MG Carbidopa/Levodopa 0.5 tab TID PO 09/05/24 14:00 09/14/24 14:49 0.5 TAB PHYSICAL EXAM: - GENERAL: Alert and oriented x 3. No acute distress. Well-nourished. - EYES: EOMI. Anicteric. - HENT: Moist mucous membranes. No scleral icterus. No cervical lymphadenopathy. - LUNGS: Clear to auscultation bilaterally. No accessory muscle use. - CARDIOVASCULAR: Regular rate and rhythm. No murmur. No JVD. - ABDOMEN: Soft, non-tender and non-distended. No palpable masses. - EXTREMITIES: No edema. Non-tender.?SKIN: No rashes or lesions. Warm. - NEUROLOGIC: No focal neurological deficits. CN II-XII grossly intact, but not individually tested - PSYCHIATRIC: Cooperative. Appropriate mood and affect. laboratory and microbiology Laboratory Tests 09/14/24 14:28 Test 09/14/24 14:28 Range/Units Serum Glucose 123 H 74-106 mg/dL Problem List/Assessment/Plan Problem List/Assessment/Plan ASSESSMENT AND PLAN: ID Problem List: - Chronic sacral decubitus ulcer - Thigh cellulitis - Klebsiella pneumonia - VRE colonization - Sepsis - Penile ulcer DVT Assessment This is a 78-year-old male with a known history of chronic decubitus ulcer. He was found altered and incontinent about three weeks ago, requiring ICU admission and vasopressors. Multiple antibiotic regimens have been used, including meropenem, vancomycin, linezolid, ceftriaxone, azithromycin, and piperacillin- tazobactam (Zosyn). Recent wound cultures grew Klebsiella pneumoniae and VRE (felt to be colonization rather than an active infection). He also has a large left lateral thigh ulceration with necrosis and drainage, non-healing upper back wounds, and a penile ulcer. He is currently off vasopressors and remains on apixaban therapy for an identified DVT. 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 Plan is subject to change pending new incoming information/diagnostics. Thank you for this consult. ID will continue to follow. Please contact Infectious Disease for any questions or concerns. Electronically signed by: Gil Miller MD, 09/10/2024 Plan discussed with: Patient Dietary Evaluation Review Comments: 1. If on Vent Consider Nepro 30ml/hr x 24 hr,( 58g pro 1274 kcal). this will support pt's needs at 100% protein, 94 % kcal. 2. If EN not possible, and NPO > 7 days, consider TPN per pharmacy. 3. If off Vent, and pass speech eval, offer Renal Specific -50g protein 2g Na 3 K Low phos, 4. If off vent on hemo dialysis, pass speech eval, offer Renal Standard 2 gNa 3 K, Low Phos diet. Expected Outcomes/Goals: advance to diet able to eat independently. GIL MILLER MD Sep 14, 2024 18:24
[2024-09-14 21:00] VITALS: BP 117/70; PULSE 89; RESP 17; TEMP 98; O2SAT 98
--- NOTE | 2024-09-14 21:37 | DVHPN2 ---
Consult Progress Note Date Seen: Sep 14, 2024 Subjective Patient reports: Other (orally responsive , on room air and not needing any BP support , ketchexic , contracted extremities and tolerating wound care ) Objective vital signs Vital Sign Date Time Temp Pulse Resp B/P (MAP) Pulse Ox O2 Delivery O2 Flow Rate FiO2 09/14/24 21:00 98.0 89 17 117/70 (86) 98 98.0 09/14/24 07:39 Room Air* 0 21 Total Intake and Output 09/13/24 09/13/24 09/14/24 15:00 23:00 07:00 Intake Total 375 ml 550 ml Output Total 950 ml 1050 ml Balance -575 ml -500 ml medications Current Medications Medications Dose Ordered Sig/Akiko Route Start Time Stop Time Status Last Admin Dose Admin Vancomycin HCl 200 ml @ 200 mls/hr Q12HR IV 08/10/24 22:00 UNV Enteral Nutritional Formula 240 ml TIDWM PO 08/20/24 18:00 09/14/24 18:00 240 ML Diagnostic Test (Pha) 1 strip Q6HR 08/21/24 12:00 Cancel Insulin Human Regular FOLLOW SLIDING SCALE Q6HR SC 08/21/24 12:00 Cancel Dextrose 50 ml UD IV 08/21/24 10:00 Cancel Melatonin 3 mg HS PO 08/22/24 22:00 09/13/24 22:43 3 MG Midodrine 10 mg TID@0600,1200,1800 PO 08/23/24 12:00 09/14/24 18:00 10 MG Acetaminophen 650 mg Q6HPRN PRN PO 08/25/24 16:00 09/07/24 00:38 650 MG Enteral Nutritional Formula 28.8 gm TID PO 08/26/24 14:00 09/14/24 14:00 28.8 GM Fludrocortisone Acetate 0.1 mg DAILY PO 08/29/24 10:00 09/14/24 08:41 0.1 MG Acetaminophen/ Hydrocodone Bitart 1 tab Q4HPRN PRN PO 08/30/24 11:30 09/14/24 12:15 1 TAB Lactulose 30 ml BIDPRN PRN PO 08/30/24 11:30 09/08/24 05:52 30 ML Pantoprazole Sodium 40 mg DAILY@0600 PO 09/02/24 06:00 09/14/24 05:33 40 MG Thiamine HCl 100 mg DAILY PO 09/02/24 10:00 09/14/24 08:41 100 MG Folic Acid 1 mg DAILY PO 09/02/24 10:00 09/14/24 08:41 1 MG Multivitamins 1 tab DAILY PO 09/02/24 10:00 09/14/24 08:41 1 TAB Apixaban 5 mg BID PO 09/02/24 22:00 09/14/24 08:41 5 MG Carbidopa/Levodopa 0.5 tab TID PO 09/05/24 14:00 09/14/24 14:49 0.5 TAB PHYSICAL EXAM: - GENERAL: Alert and oriented x 3. No acute distress. Well-nourished. - EYES: EOMI. Anicteric. - HENT: Moist mucous membranes. No scleral icterus. No cervical lymphadenopathy. - LUNGS: Clear to auscultation bilaterally. No accessory muscle use. - CARDIOVASCULAR: Regular rate and rhythm. No murmur. No JVD. - ABDOMEN: Soft, non-tender and non-distended. No palpable masses. - EXTREMITIES: No edema. Non-tender.?SKIN: No rashes or lesions. Warm. - NEUROLOGIC: No focal neurological deficits. CN II-XII grossly intact, but not individually tested - PSYCHIATRIC: Cooperative. Appropriate mood and affect. laboratory and microbiology Laboratory Tests 09/14/24 14:28 Test 09/14/24 14:28 Range/Units Serum Glucose 123 H 74-106 mg/dL Problem List/Assessment/Plan Problems(with codes): (1) Severe dehydration (2) Altered mental state (3) Sepsis (4) Renal failure (5) Hypernatremia (6) Decubitus ulcers (7) Rhabdomyolysis Problem List/Assessment/Plan ASSESSMENT AND PLAN: ID Problem List: - Chronic sacral decubitus ulcer - Thigh cellulitis - Klebsiella pneumonia - VRE colonization - Sepsis - Penile ulcer DVT Assessment This is a 78-year-old male with a known history of chronic decubitus ulcer. He was found altered and incontinent about three weeks ago, requiring ICU admission and vasopressors. Multiple antibiotic regimens have been used, including meropenem, vancomycin, linezolid, ceftriaxone, azithromycin, and piperacillin- tazobactam (Zosyn). Recent wound cultures grew Klebsiella pneumoniae and VRE (felt to be colonization rather than an active infection). He also has a large left lateral thigh ulceration with necrosis and drainage, non-healing upper back wounds, and a penile ulcer. He is currently off vasopressors and remains on apixaban therapy for an identified DVT. 08/09: meropenem dced 08/10: linezolid dced 09/14: sacral ulcer is stage 1-2 , appears to be clinically stable and off all antibiotics Plan: - Monitor the patient off all antibiotics - Suspect VRE as colonization; no new antimicrobial coverage for this at present - Continue supportive care with IV fluids as needed, and use pressors if necessary to maintain MAP > 65 - Maintain blood glucose < 180 mg/dL with insulin as needed - Defer management of anticoagulation to the primary team - Continue local wound care and follow up on debridements as necessary Isolation Precautions: standard Assessment and plan were discussed with the patient (and/or appropriate decision-makers) as written above. Plan is subject to change pending new incoming information/diagnostics. Thank you for this consult. ID will continue to follow. Please contact Infectious Disease for any questions or concerns. Electronically signed by: Gil Miller MD, 09/10/2024 Plan discussed with: Other Dietary Evaluation Review Comments: 1. If on Vent Consider Nepro 30ml/hr x 24 hr,( 58g pro 1274 kcal). this will support pt's needs at 100% protein, 94 % kcal. 2. If EN not possible, and NPO > 7 days, consider TPN per pharmacy. 3. If off Vent, and pass speech eval, offer Renal Specific -50g protein 2g Na 3 K Low phos, 4. If off vent on hemo dialysis, pass speech eval, offer Renal Standard 2 gNa 3 K, Low Phos diet. Expected Outcomes/Goals: advance to diet able to eat independently. GIL MILLER MD Sep 14, 2024 21:37
--- NOTE | 2024-09-14 23:49 | DVHPN2 ---
Progress Note - Dictate Date Seen: Sep 14, 2024 Medical Necessity Reason Pt with a Central, PICC or Fol: Yes The following are medically ne: Powell Catheter Reason for powell catheter: Strict I&O Subjective Patient seen and examined at bedside. Breathing on room air. Overnight events reviewed. vital signs Vital Sign Date Time Temp Pulse Resp B/P (MAP) Pulse Ox O2 Delivery O2 Flow Rate FiO2 09/14/24 21:00 98.0 89 17 117/70 (86) 98 98.0 09/14/24 20:00 Room Air* 0 21 Total Intake and Output 09/13/24 09/13/24 09/14/24 15:00 23:00 07:00 Intake Total 375 ml 550 ml Output Total 950 ml 1050 ml Balance -575 ml -500 ml medications Current Medications Medications Dose Ordered Sig/Akiko Route Start Time Stop Time Status Last Admin Dose Admin Vancomycin HCl 200 ml @ 200 mls/hr Q12HR IV 08/10/24 22:00 UNV Enteral Nutritional Formula 240 ml TIDWM PO 08/20/24 18:00 09/14/24 18:00 240 ML Diagnostic Test (Pha) 1 strip Q6HR 08/21/24 12:00 Cancel Insulin Human Regular FOLLOW SLIDING SCALE Q6HR SC 08/21/24 12:00 Cancel Dextrose 50 ml UD IV 08/21/24 10:00 Cancel Melatonin 3 mg HS PO 08/22/24 22:00 09/14/24 21:56 3 MG Midodrine 10 mg TID@0600,1200,1800 PO 08/23/24 12:00 09/14/24 18:00 10 MG Acetaminophen 650 mg Q6HPRN PRN PO 08/25/24 16:00 09/07/24 00:38 650 MG Enteral Nutritional Formula 28.8 gm TID PO 08/26/24 14:00 09/14/24 14:00 28.8 GM Fludrocortisone Acetate 0.1 mg DAILY PO 08/29/24 10:00 09/14/24 08:41 0.1 MG Acetaminophen/ Hydrocodone Bitart 1 tab Q4HPRN PRN PO 08/30/24 11:30 09/14/24 12:15 1 TAB Lactulose 30 ml BIDPRN PRN PO 08/30/24 11:30 09/08/24 05:52 30 ML Pantoprazole Sodium 40 mg DAILY@0600 PO 09/02/24 06:00 09/14/24 05:33 40 MG Thiamine HCl 100 mg DAILY PO 09/02/24 10:00 09/14/24 08:41 100 MG Folic Acid 1 mg DAILY PO 09/02/24 10:00 09/14/24 08:41 1 MG Multivitamins 1 tab DAILY PO 09/02/24 10:00 09/14/24 08:41 1 TAB Apixaban 5 mg BID PO 09/02/24 22:00 09/14/24 08:41 5 MG Carbidopa/Levodopa 0.5 tab TID PO 09/05/24 14:00 09/14/24 21:58 0.5 TAB objective Gen.: Patient lying in bed in no apparent distress. Breathing on room air. Head: Normocephalic, atraumatic. Eyes: EOMI/PERRLA. Ears: Normal hearing. Normal anatomy. Neck/trachea: Trachea midline, supple. Nose: Normal external anatomy. Mouth: Moist mucous membranes. Chest: Decreased air entry bilaterally. No wheezing or rhonchi. Cardiovascular: Positive S1, positive S2. Regular rate and rhythm. Abdomen: Positive bowel sounds in all 4 quadrants. Soft, non-tender, non- distended. : Deferred. Rectal: Deferred. Skin: Warm, dry. Intact. Extremities: 2+ radial pulses bilaterally. No lower extremity edema. Neuro: Awake, alert, oriented x3. No gross motor or sensory deficits. Cranial nerves II through XII intact. Gait not assessed. laboratory and microbiology Laboratory Tests 09/14/24 14:28 Test 09/14/24 14:28 Range/Units Serum Glucose 123 H 74-106 mg/dL Assessment/Plan Impression: Acute hypoxic respiratory failure Leukocytosis Hypernatremia Parkinson's disease Acute metabolic encephalopathy Decubitus ulcers Sepsis Rhabdomyolysis Acute kidney injury Events: Remains on room air. No respiratory distress. Continue wound care Head of bed elevation Aspiration precautions Supportive care Continue bronchodilators PRN On Florinef Continue vitamin supplementation Incentive spirometry Continue midodrine 10 mg TID Monitor hemoglobin Accu-Cheks for glycemic monitoring Nutritional support Monitor renal function Powell in place - monitor ins and outs Protonix for GI prophylaxis Awaiting SNF placement in . Disposition per hospitalist. Labs and imaging reviewed. Rest of plan as noted below. Plan: S/p extubation 08/15/24 Breathing on room air. Supplemental O2 PRN. CT head: No acute intracranial hemorrhage or stroke. Pressors if necessary for hemodynamic support Titrate to keep MAP above 65 mmHg/SBP above 90 mmHg. Continue bronchodilators PRN Monitor hemoglobin Head of bed elevation Aspiration precautions Monitor renal function due to Acute kidney injury. Monitor electrolytes. Supplement as necessary. Monitor sodium due to hypernatremia IV fluid hydration Do not over correct sodium. Sodium 133 (09/14/24) Nutritional support. Accu-Cheks, ISS. GI prophylaxis - Protonix DVT prophylaxis. Prognosis: Guarded given multiple comorbidities. Rest of plan per hospitalist and other consultants. Thank you Dr. Newman for allowing me to participate in this patient's care. Further recommendations will depend on patient's clinical course. Please do not hesitate to contact me if you have any questions or concerns. This medical document was created using an electronic medical record system with tagga dictation system. Although this document has been carefully reviewed, there may still be some phonetic and typographical errors. These areas are purely typographical due to imperfections of the software programs, and do not reflect any compromise in the patient's medical care. Dietary Evaluation Review Comments: 1. If on Vent Consider Nepro 30ml/hr x 24 hr,( 58g pro 1274 kcal). this will support pt's needs at 100% protein, 94 % kcal. 2. If EN not possible, and NPO > 7 days, consider TPN per pharmacy. 3. If off Vent, and pass speech eval, offer Renal Specific -50g protein 2g Na 3 K Low phos, 4. If off vent on hemo dialysis, pass speech eval, offer Renal Standard 2 gNa 3 K, Low Phos diet. Expected Outcomes/Goals: advance to diet able to eat independently. Plan discussed with: Patient, Other (SRAVANI Rosen) REY REAGAN MD Sep 14, 2024 23:49
[2024-09-15 01:00] VITALS: BP 125/63; PULSE 86; RESP 17; TEMP 98; O2SAT 97
[2024-09-15 05:00] VITALS: BP 109/58; PULSE 75; RESP 17; TEMP 98.3; O2SAT 98
[2024-09-15 08:30] VITALS: BP 101/60; PULSE 84; RESP 16; TEMP 97.9; O2SAT 99
--- NOTE | 2024-09-15 11:50 | DVHPN2 ---
Subjective Patient seen And examined at bedside.. Complain of weak and tired.Gross Hematuria in the Welch bag. Reviewed: Care Plan, H&P, Labs, Medications, Previous Orders, Radiology, Other (Consultants) Changes from previous H/P or p: No Changes General: Per HPI Objective Vitals Vital Signs Date Time Temp Pulse Resp B/P (MAP) Pulse Ox O2 Delivery O2 Flow Rate FiO2 09/15/24 08:30 97.9 84 16 101/60 (74) 99 97.9 09/14/24 20:00 Room Air* 0 21 Intake/Output Intake and Output 09/15/24 07:00 Intake Total 1050 ml Output Total 2250 ml Balance -1200 ml Intake Oral 1050 ml Output Urine Total 2250 ml General Appearance: Alert, Oriented X3, Cooperative, No acute distress HEENT: Atraumatic, PERRLA Lungs: Clear to auscultation, Normal air movement Cardiovascular: Regular rate, Normal S1, Normal S2 Abdomen: Normal bowel sounds, Soft, No tenderness Musculoskeletal: Weak motor strength RUE, Weak motor strength LUE, Weak motor strength RLE, Weak motor strength LLE Extremities: Other Skin: Wounds Psych/Mental Status: Other Medications Current Medications Medications Dose Ordered Sig/Akiko Route Start Time Stop Time Status Last Admin Dose Admin Vancomycin HCl 200 ml @ 200 mls/hr Q12HR IV 08/10/24 22:00 UNV Enteral Nutritional Formula 240 ml TIDWM PO 08/20/24 18:00 09/15/24 08:00 240 ML Diagnostic Test (Pha) 1 strip Q6HR 08/21/24 12:00 Cancel Insulin Human Regular FOLLOW SLIDING SCALE Q6HR SC 08/21/24 12:00 Cancel Dextrose 50 ml UD IV 08/21/24 10:00 Cancel Melatonin 3 mg HS PO 08/22/24 22:00 09/14/24 21:56 3 MG Midodrine 10 mg TID@0600,1200,1800 PO 08/23/24 12:00 09/15/24 05:03 10 MG Acetaminophen 650 mg Q6HPRN PRN PO 08/25/24 16:00 09/07/24 00:38 650 MG Enteral Nutritional Formula 28.8 gm TID PO 08/26/24 14:00 09/14/24 14:00 28.8 GM Fludrocortisone Acetate 0.1 mg DAILY PO 08/29/24 10:00 09/15/24 10:01 0.1 MG Lactulose 30 ml BIDPRN PRN PO 08/30/24 11:30 09/08/24 05:52 30 ML Pantoprazole Sodium 40 mg DAILY@0600 PO 09/02/24 06:00 09/15/24 05:03 40 MG Thiamine HCl 100 mg DAILY PO 09/02/24 10:00 09/15/24 10:01 100 MG Folic Acid 1 mg DAILY PO 09/02/24 10:00 09/15/24 10:01 1 MG Multivitamins 1 tab DAILY PO 09/02/24 10:00 09/15/24 10:01 1 TAB Apixaban 5 mg BID PO 09/02/24 22:00 09/14/24 08:41 5 MG Carbidopa/Levodopa 0.5 tab TID PO 09/05/24 14:00 09/15/24 05:03 0.5 TAB Laboratory Results Laboratory Tests 09/14/24 14:28 Chemistry Test 09/14/24 14:28 Albumin 3.7 g/dL (3.2-4.8) Calcium Level 8.9 mg/dL (8.7-10.4) Total Protein 6.6 g/dL (5.7-8.2) LFT Test 09/14/24 14:28 Alanine Aminotransferase (ALT) 32 U/L (7-40) Alkaline Phosphatase 217 U/L (46-116) H Aspartate Amino Transferase (AST) 29 U/L (13-40) Total Bilirubin 0.5 mg/dL (0.2-1.0) Urinalysis Test 08/11/24 13:02 Urine Color Yellow (Yellow) Urine Clarity Turbid (Clear) H Urine pH 5.5 (5.0-9.0) Urine Specific [place] 1.018 (1.001-1.035) Urine Protein 1+ (Negative) H Urine Ketones Negative (Negative) Urine Blood 3+ /uL (Negative) H Urine Nitrite Negative (Negative) Urine Bilirubin Negative (Negative) Urine Urobilinogen 4 mg/dL (Negative) H Urine Leukocyte Esterase 1+ /uL (Negative) Urine RBC 13 /hpf (0 - 3) Urine WBC 14 /hpf (0 - 3) Urine Squamous Epithelial Cells Few /hpf (<5) Urine Bacteria Few /hpf (None Seen) H Urine Hyaline Casts Few /lpf (0 - 2) Urine Granular Casts Few /lpf (0) Urine Mucus Few (None Seen) Urine Creatinine 67.44 mg/dL (30.0-125.0) Urine Protein/Creatinine Ratio 1.00 Urine Sodium 32 mmol/L (40-220) L Urine Glucose Normal mg/dL (Normal) Urine Total Protein 67.3 mg/dL (1-14) H Microbiology Microbiology Date/Time Source Procedure Growth Status 09/07/24 18:00 Nose MRSA Screen - Final Complete 08/31/24 09:35 Urine - [place] Urine Culture - Final Complete 08/26/24 15:45 Penis Gram Stain - Final Complete 08/26/24 15:45 Wound Culture - Final Pseudo fluorescence/putida Enterococcus faecium - VRE Presumptive Ema albicans Complete 08/12/24 19:02 Bronchial Washings Gram Stain - Final Complete 08/12/24 19:02 Respiratory Culture - Final Klebsiella pneumoniae Presumptive Ema albicans Complete 08/10/24 14:08 Blood Blood Culture - Final NO GROWTH AFTER 5 DAYS OF INCUBATION. Complete Labs and/or images reviewed: Labs reviewed by me Assessment/Plan Assessment/Plan Sepsis with septic shock Metabolic encephalopathy, Wound infection of left buttock and back Parkinson's disease R leg DVT Hypernatremia: resolved [place]: Better Respiratory failure: Better Gross hematuria PLAN: Continuing current management. Continuing with Wound care Continuing with IV antibiotics Zyvox and meropenem Infectious disease consult appreciated Continuing with midodrine, Florinef, Continuing with morphine and [place] for pain control Wound I and D was done by surgeon Continuing Sinemet Discharge planning to snf Waiting for insurance approval. According to social group worker, [facility] had declined his longterm home facility. The insurance company one a peer to peer with me prior to consider him of longterm home facility. I am still waiting for peer to peer. They haven't call me yet. Urology consult for gross hematuria. Norberto Welch. Will follow labs Per daughter she had switch the patient to straight Medicare/Medicaid on September 17, 2024. She hope that we can place the patient to longterm home facility near [place] where she resides so she came come and visit him better than here which is far away from where she lives. hold [employer] for now Plan discussed with: Patient, Daughter My Orders Orders - MAGALYS LAMAS MD Procedure Category Date Status Time * Urology Consult CONS 09/14/24 Transmitted 12:09 Communication Order ORDERS 09/14/24 Transmitted 17:44 Date of Service: Sep 15, 2024 Billing Provider: MAGALYS LAMAS MD Common Visit Codes: [id number] INP/OBS CARE(HIGH) MAGALYS LAMAS MD Sep 15, 2024 11:50
[2024-09-15 12:30] VITALS: BP 96/55; PULSE 86; RESP 16; TEMP 98.5; O2SAT 99
[2024-09-15 16:40] VITALS: BP 103/58; PULSE 86; RESP 17; TEMP 98.5; O2SAT 98
[2024-09-15 20:51] VITALS: BP 91/47; PULSE 83; RESP 22; TEMP 98.8; O2SAT 98
--- NOTE | 2024-09-15 23:15 | DVHPN2 ---
Progress Note - Dictate Date Seen: Sep 15, 2024 Medical Necessity Reason Pt with a Central, PICC or Fol: Yes The following are medically ne: Powell Catheter Reason for powell catheter: Strict I&O Subjective Patient seen and examined at bedside. Breathing on room air. Overnight events reviewed. vital signs Vital Sign Date Time Temp Pulse Resp B/P (MAP) Pulse Ox O2 Delivery O2 Flow Rate FiO2 09/15/24 20:51 98.8 83 22 91/47 (62) 98 98.8 09/15/24 20:00 Room Air* 0 21 Total Intake and Output 09/14/24 09/14/24 09/15/24 15:00 23:00 07:00 Intake Total 800 ml 250 ml Output Total 1000 ml 1250 ml Balance -200 ml -1000 ml medications Current Medications Medications Dose Ordered Sig/Akiko Route Start Time Stop Time Status Last Admin Dose Admin Vancomycin HCl 200 ml @ 200 mls/hr Q12HR IV 08/10/24 22:00 UNV Enteral Nutritional Formula 240 ml TIDWM PO 08/20/24 18:00 09/15/24 17:12 240 ML Diagnostic Test (Pha) 1 strip Q6HR 08/21/24 12:00 Cancel Insulin Human Regular FOLLOW SLIDING SCALE Q6HR SC 08/21/24 12:00 Cancel Dextrose 50 ml UD IV 08/21/24 10:00 Cancel Melatonin 3 mg HS PO 08/22/24 22:00 09/15/24 21:30 3 MG Midodrine 10 mg TID@0600,1200,1800 PO 08/23/24 12:00 09/15/24 17:12 10 MG Acetaminophen 650 mg Q6HPRN PRN PO 08/25/24 16:00 09/15/24 21:44 650 MG Enteral Nutritional Formula 28.8 gm TID PO 08/26/24 14:00 09/15/24 21:29 28.8 GM Fludrocortisone Acetate 0.1 mg DAILY PO 08/29/24 10:00 09/15/24 10:01 0.1 MG Lactulose 30 ml BIDPRN PRN PO 08/30/24 11:30 09/08/24 05:52 30 ML Pantoprazole Sodium 40 mg DAILY@0600 PO 09/02/24 06:00 09/15/24 05:03 40 MG Thiamine HCl 100 mg DAILY PO 09/02/24 10:00 09/15/24 10:01 100 MG Folic Acid 1 mg DAILY PO 09/02/24 10:00 09/15/24 10:01 1 MG Multivitamins 1 tab DAILY PO 09/02/24 10:00 09/15/24 10:01 1 TAB Apixaban 5 mg BID PO 09/02/24 22:00 09/14/24 08:41 5 MG Carbidopa/Levodopa 0.5 tab TID PO 09/05/24 14:00 09/15/24 21:30 0.5 TAB objective Gen.: Patient lying in bed in no apparent distress. Breathing on room air. Head: Normocephalic, atraumatic. Eyes: EOMI/PERRLA. Ears: Normal hearing. Normal anatomy. Neck/trachea: Trachea midline, supple. Nose: Normal external anatomy. Mouth: Moist mucous membranes. Chest: Decreased air entry bilaterally. No wheezing or rhonchi. Cardiovascular: Positive S1, positive S2. Regular rate and rhythm. Abdomen: Positive bowel sounds in all 4 quadrants. Soft, non-tender, non- distended. : Deferred. Rectal: Deferred. Skin: Warm, dry. Intact. Extremities: 2+ radial pulses bilaterally. No lower extremity edema. Neuro: Awake, alert, oriented x3. No gross motor or sensory deficits. Cranial nerves II through XII intact. Gait not assessed. laboratory and microbiology Laboratory Tests 09/14/24 14:28 Test 09/14/24 14:28 Range/Units Serum Glucose 123 H 74-106 mg/dL Assessment/Plan Impression: Acute hypoxic respiratory failure Leukocytosis Hypernatremia Parkinson's disease Acute metabolic encephalopathy Decubitus ulcers Sepsis Rhabdomyolysis Acute kidney injury Events: Remains on room air. No respiratory distress. Continue wound care Head of bed elevation Aspiration precautions Supportive care Continue bronchodilators PRN On Florinef Continue vitamin supplementation Incentive spirometry Continue midodrine 10 mg TID Monitor hemoglobin Accu-Cheks for glycemic monitoring Nutritional support Monitor renal function Powell in place - monitor ins and outs Protonix for GI prophylaxis Awaiting SNF placement in . Disposition per hospitalist. Labs and imaging reviewed. Rest of plan as noted below. Plan: S/p extubation 08/15/24 Breathing on room air. Supplemental O2 PRN. CT head: No acute intracranial hemorrhage or stroke. Pressors if necessary for hemodynamic support Titrate to keep MAP above 65 mmHg/SBP above 90 mmHg. Continue bronchodilators PRN Monitor hemoglobin Head of bed elevation Aspiration precautions Monitor renal function due to Acute kidney injury. Monitor electrolytes. Supplement as necessary. Monitor sodium due to hypernatremia IV fluid hydration Do not over correct sodium. Sodium 133 (09/14/24) Nutritional support. Accu-Cheks, ISS. GI prophylaxis - Protonix DVT prophylaxis. Prognosis: Guarded given multiple comorbidities. Rest of plan per hospitalist and other consultants. Thank you Dr. Newman for allowing me to participate in this patient's care. Further recommendations will depend on patient's clinical course. Please do not hesitate to contact me if you have any questions or concerns. This medical document was created using an electronic medical record system with [employer] dictation system. Although this document has been carefully reviewed, there may still be some phonetic and typographical errors. These areas are purely typographical due to imperfections of the software programs, and do not reflect any compromise in the patient's medical care. Dietary Evaluation Review Comments: 1. If on Vent Consider Nepro 30ml/hr x 24 hr,( 58g pro 1274 kcal). this will support pt's needs at 100% protein, 94 % kcal. 2. If EN not possible, and NPO > 7 days, consider TPN per pharmacy. 3. If off Vent, and pass speech eval, offer Renal Specific -50g protein 2g Na 3 K Low phos, 4. If off vent on hemo dialysis, pass speech eval, offer Renal Standard 2 gNa 3 K, Low Phos diet. Expected Outcomes/Goals: advance to diet able to eat independently. Plan discussed with: Patient, Other (SRAVANI Salinas) REY REAGAN MD Sep 15, 2024 23:15
[2024-09-16 01:00] VITALS: BP 100/62; PULSE 85; RESP 20; TEMP 97.8; O2SAT 98
[2024-09-16 04:58] VITALS: BP 95/55; PULSE 83; RESP 20; TEMP 97.8; O2SAT 97
[2024-09-16 09:08] VITALS: BP 100/56; PULSE 80; RESP 16; TEMP 97.9; O2SAT 98
--- NOTE | 2024-09-16 11:34 | DVHPN2 ---
Subjective Patient seen And examined at bedside.. Complain of weak and tired. Hematuria is clearing out. Urine showed more clean urine Reviewed: Care Plan, H&P, Labs, Medications, Previous Orders, Radiology, Other (Consultants) Changes from previous H/P or p: No Changes General: Per HPI Objective Vitals Vital Signs Date Time Temp Pulse Resp B/P (MAP) Pulse Ox O2 Delivery O2 Flow Rate FiO2 09/16/24 09:08 97.9 80 16 100/56 (71) 98 97.9 09/16/24 08:00 Room Air* 0 21 Intake/Output Intake and Output 09/16/24 07:00 Intake Total 1695 ml Output Total 1950 ml Balance -255 ml Intake Oral 1695 ml Output Urine Total 1950 ml # Bowel Movements 2 General Appearance: Alert, Oriented X3, Cooperative, No acute distress HEENT: Atraumatic, PERRLA Lungs: Clear to auscultation, Normal air movement Cardiovascular: Regular rate, Normal S1, Normal S2 Abdomen: Normal bowel sounds, Soft, No tenderness Musculoskeletal: Weak motor strength RUE, Weak motor strength LUE, Weak motor strength RLE, Weak motor strength LLE Extremities: Other Skin: Wounds Psych/Mental Status: Other Medications Current Medications Medications Dose Ordered Sig/Akiko Route Start Time Stop Time Status Last Admin Dose Admin Vancomycin HCl 200 ml @ 200 mls/hr Q12HR IV 08/10/24 22:00 UNV Enteral Nutritional Formula 240 ml TIDWM PO 08/20/24 18:00 09/16/24 09:42 240 ML Diagnostic Test (Pha) 1 strip Q6HR 08/21/24 12:00 Cancel Insulin Human Regular FOLLOW SLIDING SCALE Q6HR SC 08/21/24 12:00 Cancel Dextrose 50 ml UD IV 08/21/24 10:00 Cancel Melatonin 3 mg HS PO 08/22/24 22:00 09/15/24 21:30 3 MG Midodrine 10 mg TID@0600,1200,1800 PO 08/23/24 12:00 09/16/24 05:18 10 MG Acetaminophen 650 mg Q6HPRN PRN PO 08/25/24 16:00 09/16/24 03:52 650 MG Enteral Nutritional Formula 28.8 gm TID PO 08/26/24 14:00 09/16/24 05:18 28.8 GM Fludrocortisone Acetate 0.1 mg DAILY PO 08/29/24 10:00 09/16/24 09:53 0.1 MG Lactulose 30 ml BIDPRN PRN PO 08/30/24 11:30 09/08/24 05:52 30 ML Pantoprazole Sodium 40 mg DAILY@0600 PO 09/02/24 06:00 09/16/24 05:18 40 MG Thiamine HCl 100 mg DAILY PO 09/02/24 10:00 09/16/24 09:53 100 MG Folic Acid 1 mg DAILY PO 09/02/24 10:00 09/16/24 09:53 1 MG Multivitamins 1 tab DAILY PO 09/02/24 10:00 09/16/24 09:53 1 TAB Apixaban 5 mg BID PO 09/02/24 22:00 09/14/24 08:41 5 MG Carbidopa/Levodopa 0.5 tab TID PO 09/05/24 14:00 09/16/24 05:19 0.5 TAB Laboratory Results Laboratory Tests 09/14/24 14:28 Urinalysis Test 08/11/24 13:02 Urine Color Yellow (Yellow) Urine Clarity Turbid (Clear) H Urine pH 5.5 (5.0-9.0) Urine Specific [place] 1.018 (1.001-1.035) Urine Protein 1+ (Negative) H Urine Ketones Negative (Negative) Urine Blood 3+ /uL (Negative) H Urine Nitrite Negative (Negative) Urine Bilirubin Negative (Negative) Urine Urobilinogen 4 mg/dL (Negative) H Urine Leukocyte Esterase 1+ /uL (Negative) Urine RBC 13 /hpf (0 - 3) Urine WBC 14 /hpf (0 - 3) Urine Squamous Epithelial Cells Few /hpf (<5) Urine Bacteria Few /hpf (None Seen) H Urine Hyaline Casts Few /lpf (0 - 2) Urine Granular Casts Few /lpf (0) Urine Mucus Few (None Seen) Urine Creatinine 67.44 mg/dL (30.0-125.0) Urine Protein/Creatinine Ratio 1.00 Urine Sodium 32 mmol/L (40-220) L Urine Glucose Normal mg/dL (Normal) Urine Total Protein 67.3 mg/dL (1-14) H Microbiology Microbiology Date/Time Source Procedure Growth Status 09/07/24 18:00 Nose MRSA Screen - Final Complete 08/31/24 09:35 Urine - [place] Urine Culture - Final Complete 08/26/24 15:45 Penis Gram Stain - Final Complete 08/26/24 15:45 Wound Culture - Final Pseudo fluorescence/putida Enterococcus faecium - VRE Presumptive Ema albicans Complete 08/12/24 19:02 Bronchial Washings Gram Stain - Final Complete 08/12/24 19:02 Respiratory Culture - Final Klebsiella pneumoniae Presumptive Ema albicans Complete 08/10/24 14:08 Blood Blood Culture - Final NO GROWTH AFTER 5 DAYS OF INCUBATION. Complete Labs and/or images reviewed: Labs reviewed by me Assessment/Plan Assessment/Plan Sepsis with septic shock Metabolic encephalopathy, Wound infection of left buttock and back Parkinson's disease R leg DVT Hypernatremia: resolved DAY[place]: Better Respiratory failure: Better Gross hematuria PLAN: Continuing current management. Continuing with Wound care Continuing with IV antibiotics Zyvox and meropenem Infectious disease consult appreciated Continuing with midodrine, Florinef, Continuing with morphine and [place] for pain control Wound I and D was done by surgeon Continuing Sinemet Continuing to deandre Lomeli. Explained daughter in length that anticoagulation may make patient bleed. Discharge planning to snf Waiting for insurance approval. According to drug abuse social worker, [facility] had declined his shelter home facility. The insurance company one a peer to peer with me prior to consider him of shelter home facility. I am still waiting for peer to peer. They haven't call me yet. Urology consult for gross hematuria. Flush [place]. Will follow labs Per daughter she had switch the patient to straight Medicare/Medicaid on September 17, 2024. She hope that we can place the patient to shelter home facility near [place] where she resides so she came come and visit him better than here which is far away from where she lives. Plan discussed with: Patient, Daughter Date of Service: Sep 16, 2024 Billing Provider: MAGALYS LAMAS MD Common Visit Codes: [id number] INP/OBS CARE(HIGH) MAGALYS LAMAS MD Sep 16, 2024 11:34
--- NOTE | 2024-09-16 11:43 | DVHPN2 ---
Consult Progress Note Date Seen: Sep 15, 2024 Subjective Patient reports: Other (needs assistance with turning and has full thickness black ashire wound ubaldo left medial back with a skin slot on his left buttock and is recieving wwound care ) Objective vital signs Vital Sign Date Time Temp Pulse Resp B/P (MAP) Pulse Ox O2 Delivery O2 Flow Rate FiO2 09/16/24 09:08 97.9 80 16 100/56 (71) 98 97.9 09/16/24 08:00 Room Air* 0 21 Total Intake and Output 09/15/24 09/15/24 09/16/24 15:00 23:00 07:00 Intake Total 720 ml 975 ml Output Total 650 ml 1300 ml Balance 70 ml -325 ml medications Current Medications Medications Dose Ordered Sig/Akiko Route Start Time Stop Time Status Last Admin Dose Admin Vancomycin HCl 200 ml @ 200 mls/hr Q12HR IV 08/10/24 22:00 UNV Enteral Nutritional Formula 240 ml TIDWM PO 08/20/24 18:00 09/16/24 09:42 240 ML Diagnostic Test (Pha) 1 strip Q6HR 08/21/24 12:00 Cancel Insulin Human Regular FOLLOW SLIDING SCALE Q6HR SC 08/21/24 12:00 Cancel Dextrose 50 ml UD IV 08/21/24 10:00 Cancel Melatonin 3 mg HS PO 08/22/24 22:00 09/15/24 21:30 3 MG Midodrine 10 mg TID@0600,1200,1800 PO 08/23/24 12:00 09/16/24 05:18 10 MG Acetaminophen 650 mg Q6HPRN PRN PO 08/25/24 16:00 09/16/24 03:52 650 MG Enteral Nutritional Formula 28.8 gm TID PO 08/26/24 14:00 09/16/24 05:18 28.8 GM Fludrocortisone Acetate 0.1 mg DAILY PO 08/29/24 10:00 09/16/24 09:53 0.1 MG Lactulose 30 ml BIDPRN PRN PO 08/30/24 11:30 09/08/24 05:52 30 ML Pantoprazole Sodium 40 mg DAILY@0600 PO 09/02/24 06:00 09/16/24 05:18 40 MG Thiamine HCl 100 mg DAILY PO 09/02/24 10:00 09/16/24 09:53 100 MG Folic Acid 1 mg DAILY PO 09/02/24 10:00 09/16/24 09:53 1 MG Multivitamins 1 tab DAILY PO 09/02/24 10:00 09/16/24 09:53 1 TAB Apixaban 5 mg BID PO 09/02/24 22:00 09/14/24 08:41 5 MG Carbidopa/Levodopa 0.5 tab TID PO 09/05/24 14:00 09/16/24 05:19 0.5 TAB PHYSICAL EXAM: - GENERAL: Alert and oriented x 3. No acute distress. Well-nourished. - EYES: EOMI. Anicteric. - HENT: Moist mucous membranes. No scleral icterus. No cervical lymphadenopathy. - LUNGS: Clear to auscultation bilaterally. No accessory muscle use. - CARDIOVASCULAR: Regular rate and rhythm. No murmur. No JVD. - ABDOMEN: Soft, non-tender and non-distended. No palpable masses. - EXTREMITIES: No edema. Non-tender.?SKIN: No rashes or lesions. Warm. - NEUROLOGIC: No focal neurological deficits. CN II-XII grossly intact, but not individually tested - PSYCHIATRIC: Cooperative. Appropriate mood and affect. laboratory and microbiology Laboratory Tests 09/14/24 14:28 Test 09/14/24 14:28 Range/Units Serum Glucose 123 H 74-106 mg/dL Problem List/Assessment/Plan Problems(with codes): (1) Severe dehydration (2) Altered mental state (3) Sepsis (4) Renal failure (5) Hypernatremia (6) Decubitus ulcers (7) Rhabdomyolysis Problem List/Assessment/Plan ASSESSMENT AND PLAN: ID Problem List: - Chronic sacral decubitus ulcer - Thigh cellulitis - Klebsiella pneumonia - VRE colonization - Sepsis - Penile ulcer DVT Assessment This is a 78-year-old male with a known history of chronic decubitus ulcer. He was found altered and incontinent about three weeks ago, requiring ICU admission and vasopressors. Multiple antibiotic regimens have been used, including meropenem, vancomycin, linezolid, ceftriaxone, azithromycin, and piperacillin- tazobactam (Zosyn). Recent wound cultures grew Klebsiella pneumoniae and VRE (felt to be colonization rather than an active infection). He also has a large left lateral thigh ulceration with necrosis and drainage, non-healing upper back wounds, and a penile ulcer. He is currently off vasopressors and remains on apixaban therapy for an identified DVT. 08/09: meropenem dced 08/10: linezolid dced 09/14: sacral ulcer is stage 1-2 , appears to be clinically stable and off all antibiotics 09/15: whitecount is 6.4 Plan: - Monitor the patient off all antibiotics - Suspect VRE as colonization; no new antimicrobial coverage for this at present - Continue supportive care with IV fluids as needed, and use pressors if necessary to maintain MAP > 65 - Maintain blood glucose < 180 mg/dL with insulin as needed - Defer management of anticoagulation to the primary team - Continue local wound care and follow up on debridements as necessary Isolation Precautions: standard Assessment and plan were discussed with the patient (and/or appropriate decision-makers) as written above. Plan is subject to change pending new incoming information/diagnostics. Thank you for this consult. ID will continue to follow. Please contact Infectious Disease for any questions or concerns. Electronically signed by: Gil Miller MD, 09/10/2024 Plan discussed with: Other Dietary Evaluation Review Comments: 1. If on Vent Consider Nepro 30ml/hr x 24 hr,( 58g pro 1274 kcal). this will support pt's needs at 100% protein, 94 % kcal. 2. If EN not possible, and NPO > 7 days, consider TPN per pharmacy. 3. If off Vent, and pass speech eval, offer Renal Specific -50g protein 2g Na 3 K Low phos, 4. If off vent on hemo dialysis, pass speech eval, offer Renal Standard 2 gNa 3 K, Low Phos diet. Expected Outcomes/Goals: advance to diet able to eat independently. GIL MILLER MD Sep 16, 2024 11:43
[2024-09-16 13:00] VITALS: BP 106/56; PULSE 82; RESP 18; TEMP 98.1; O2SAT 97
[2024-09-16] MEDS: SODIUM CHLORIDE 0.9% 500 ML IV ONE (13:49)
[2024-09-16 16:43] VITALS: BP 121/61; PULSE 92; RESP 18; TEMP 98.2; O2SAT 100
--- NOTE | 2024-09-16 18:28 | DVHPN2 ---
Progress Note - Dictate Date Seen: Sep 16, 2024 Medical Necessity Reason Pt with a Central, PICC or Fol: Yes The following are medically ne: Powell Catheter Reason for powell catheter: Strict I&O Subjective Mr. Howard is a 78 years old right-handed gentleman with a history of Parkinson's disease, the patient was admitted on 08/10 24 with a chief company of altered mental status I have seen and examined the patient, I have discussed with his nurse and sitter, he is awake, oriented to person and place, he knows year, socially appropriate No hallucination Mild tremor in both hands, looks symmetric, but cogwheeling is stronger in the right hand He was soft voice, and diminished facial expression Respiratory culture, 08/12/2024: Klebsiella pneumoniae Blood culture, 08/10/24: Negative UDS, 08/10/2024: Negative Urinalysis, 08/10/2024: WBC 10, urine leukocyte: Trace WBC/HB/PLT/MCV, 08/20/24: 6.5/10.5/205/88.8 PT/INR/PTT, 08/14/2024: 13.9/1.34/30.9 Na, 08/10/2024: 170, 168, 08/11/2024: 165, 08/12/2024: 164, 08/13/2024: 161, 08/14/2024: 156, 08/19/2024: 149, 08/20/24: 149, 08/23/2023: 142 BUN/CR, 08/18/2024: 45/1.01, 08/20/2024: 42/1.07 CPK, 08/10/2024: 2513, 08/11/2024: 2525, 08/12/2024: 2844, 08/13/2024: 4268, 08/21/2024: 510 TBI/AST/ALT/AP, 08/20/2024: 1.4/148/210/179, 08/23/2024: 08/23/2024: 0.9/61/104/180 Ammonia, 08/23/2024: < 10 Hepatitis panel, 08/11/2024: Negative TSH, 08/11/2024: 4.48 Venous Doppler, lower extremities, 08/13/2024: No left DVT. Positive DVT involving the right lower extremity common femoral vein, femoral vein, popliteal vein and calf Chest x-ray, 08/10/2024: No acute cardiopulmonary disease. Elevation of the left hemidiaphragm. Enteric tube and endotracheal tube are in satisfactory position Chest x-ray, 08/21/2024: Increased congestion CT head, 08/10/2024: 1. No acute intracranial hemorrhage, midline shift or mass effect. 2. Generalized brain atrophy. 3. Small vessel ischemic/degenerative changes. 4. If symptoms persists, further evaluation with MRI is recommended MRI head, 08/19/2024: 1. No evidence of acute intracranial abnormality. 2. Motion limited study vital signs Vital Sign Date Time Temp Pulse Resp B/P (MAP) Pulse Ox O2 Delivery O2 Flow Rate FiO2 09/16/24 16:43 98.2 92 18 121/61 (81) 100 98.2 09/16/24 08:00 Room Air* 0 21 Total Intake and Output 09/15/24 09/15/24 09/16/24 15:00 23:00 07:00 Intake Total 720 ml 975 ml Output Total 650 ml 1300 ml Balance 70 ml -325 ml medications Current Medications Medications Dose Ordered Sig/Akiko Route Start Time Stop Time Status Last Admin Dose Admin Vancomycin HCl 200 ml @ 200 mls/hr Q12HR IV 08/10/24 22:00 UNV Diagnostic Test (Pha) 1 strip Q6HR 08/21/24 12:00 Cancel Insulin Human Regular FOLLOW SLIDING SCALE Q6HR SC 08/21/24 12:00 Cancel Dextrose 50 ml UD IV 08/21/24 10:00 Cancel Melatonin 3 mg HS PO 08/22/24 22:00 09/15/24 21:30 3 MG Midodrine 10 mg TID@0600,1200,1800 PO 08/23/24 12:00 09/16/24 17:43 10 MG Acetaminophen 650 mg Q6HPRN PRN PO 08/25/24 16:00 09/16/24 03:52 650 MG Enteral Nutritional Formula 28.8 gm TID PO 08/26/24 14:00 09/16/24 13:49 28.8 GM Fludrocortisone Acetate 0.1 mg DAILY PO 08/29/24 10:00 09/16/24 09:53 0.1 MG Lactulose 30 ml BIDPRN PRN PO 08/30/24 11:30 09/08/24 05:52 30 ML Pantoprazole Sodium 40 mg DAILY@0600 PO 09/02/24 06:00 09/16/24 05:18 40 MG Thiamine HCl 100 mg DAILY PO 09/02/24 10:00 09/16/24 09:53 100 MG Folic Acid 1 mg DAILY PO 09/02/24 10:00 09/16/24 09:53 1 MG Multivitamins 1 tab DAILY PO 09/02/24 10:00 09/16/24 09:53 1 TAB Apixaban 5 mg BID PO 09/02/24 22:00 09/14/24 08:41 5 MG Carbidopa/Levodopa 0.5 tab TID PO 09/05/24 14:00 09/16/24 13:58 0.5 TAB objective General: the patient is well developed and nourished. No acute distress. MENTAL STATUS: Subjective SPEECH, LANGUAGE, HIGHER CORTICAL FUNCTION: no aphasia or dysathria. CRANIAL NERVES: Pupils are equal, round and reactive. EOMs full and conjugate. No nystagmus. Facial sensation intact in all three divisions bilaterally. Mandibular strength intact. Facial muscles symmetrical and strength intact. SENSATION: Sensation to touch and pinprick is Ok MOTOR: Normal muscle bulk. No fasciculations. He moves the arms REFLEXES: Deep tendon reflexes normal and symmetrical. No pathological reflexes. CEREBELLAR/COORDINATION: Deferred GAIT/STATION: deferred laboratory and microbiology Laboratory Tests 09/14/24 14:28 Test 09/14/24 14:28 Range/Units Serum Glucose 123 H 74-106 mg/dL Problem List Altered mental status/metabolic encephalopathy secondary to Sepsis Septic shock Respiratory failure Urinary tract infection Dehydration Acute kidney failure Hypernatremia ? Levodopa side effects Rhabdomyolysis Hand tremors, gait disturbance, low voice Parkinson's disease Rule out essential tremor Pressure sores DVT Assessment/Plan Monitoring Supportive treatment Oxygen IV antibiotics Eliquis 5 mg b.i.d. Sinemet 25/100, 0.5 tablets, t.i.d. Midodrine Current pain management Okay to use Tylenol for pain control Wound care GI prophylaxis Pulmonary on case Nephrology on case Surgery on case More recommendation per clinical course This medical document was created using an electronic medical record system with [employer] dictation system. Although this document has been carefully reviewed, there may still be some phonetic and typographical errors. These areas are purely typographical due to imperfections of the software programs, and do not reflect any compromise in the patient's medical care Prognosis poor Dietary Evaluation Review Comments: 1. If on Vent Consider Nepro 30ml/hr x 24 hr,( 58g pro 1274 kcal). this will support pt's needs at 100% protein, 94 % kcal. 2. If EN not possible, and NPO > 7 days, consider TPN per pharmacy. 3. If off Vent, and pass speech eval, offer Renal Specific -50g protein 2g Na 3 K Low phos, 4. If off vent on hemo dialysis, pass speech eval, offer Renal Standard 2 gNa 3 K, Low Phos diet. Expected Outcomes/Goals: advance to diet able to eat independently. Plan discussed with: Patient, Other EVELINE HUNTER MD Sep 16, 2024 18:28
--- NOTE | 2024-09-16 19:00 | DVHINCON2 ---
Date of service: Sep 16, 2024 Referring Physician Hospitalist Reason for Consultation hematuria History of Present Illness History Source: RN Notes, MD Notes, Old Records Exam Limitations: Clinical condition HPI 78 yo male admitted for respiratory. urology consulted for evaluation of hematuria. Patient has a powell, the urine is clear yellow. Home Meds Reported Medications Gabapentin (Gabapentin) 100 Mg Cap, 2 CAP PO BID for 90 Days, #360 08/11/24 Atorvastatin Calcium (Lipitor) 10 Mg Tab, 1 TAB PO DAILY for 90 Days, #90 08/11/24 Levodopa W/Carbidopa (Carbidopa/Levodopa) 1 Tab Tab, 3 TAB PO TID for 30 Days, #270 TAKE 2 TABLETS BY MOUTH 3 TIMES DAILY FOR 7 DAYS, THEN TAKE 3 TABLETS BY MOUTH 3 TIMES DAILY THEREAFTER. 08/11/24 Review of Systems Comments unable to obtain H&P Exam Vital Signs Vital Signs Date Time Temp Pulse Resp B/P (MAP) Pulse Ox O2 Delivery O2 Flow Rate FiO2 09/16/24 16:43 98.2 92 18 121/61 (81) 100 98.2 09/16/24 08:00 Room Air* 0 21 General Appeara: Well developed, Well nourished Neuro/Mental St: Lethargic Skin Exam: Normal inspection, Normal color, Warm/dry Labs/Xrays [place] [id number] Ph: [phone] DIAGNOSTIC IMAGING Diagnostic Imaging Report : [id number] Signed PATIENT: JASEN DIXON ACCT: [id number] UNIT: [id number] : 1945 LOC: [facility] ROOM / BED: [address] [place] [address] AGE / SEX: 78 / M ADM STATUS: ADM IN SERVICE 1153 ORDERING PHYSICIAN: JELENA GAINES MD PROCEDURE(s): ABPLC - CT ABD PELVIS W CON-ORAL & IV REASON: sepsis ORDER NUMBER(s): [id number], ACCESSION NUMBER(s): [id number] Procedure: CT CT ABD PELVIS W CON-ORAL IV 08/28/2024 05:18 PM Indication: sepsis Comparison Study: None available at time of dictation. Technique: Axial images were obtained and reformatted in coronal and sagittal planes. All CT scans at this medical facility are performed using dose modulation techniques as appropriate to a performed exam including the following: Automated exposure control was utilized; adjustment of the MA and/or KV according to patient size; and use of iterative reconstruction technique. CT Dose: CTDI volume is 20.73 mGy. Dose-length product is 1100.39 mGy*cm FINDINGS: Lower Chest: Bibasilar subsegmental atelectasis noted. Hepatobiliary: Unremarkable. Spleen: Unremarkable. Pancreas: Unremarkable. Adrenal Glands: Unremarkable. tract: The kidneys are normal in size bilaterally without hydronephrosis or nephrolithiasis. Circumferential mural thickening of the urinary bladder. GI tract: The stomach is grossly normal in appearance. No evidence of small bowel obstruction. The large bowel is unremarkable. Mild fecal retention. The appendix is normal. Lymphatics: No mesenteric, retroperitoneal or periportal lymphadenopathy. No pelvic sidewall or inguinal lymphadenopathy. Vasculature: The abdominal aorta is normal in in caliber. Pelvic Organs: Prostate is enlarged measuring 4.7 cm in transverse. Powell catheter is seen with the tip in the bladder. Bones/soft tissues: Left lateral upper thigh ulceration measuring 5.7 cm in AP and 2.4 cm in depth extending superficial to the underlying gluteus vania muscle. Moderate surrounding subcutaneous edema and overlying skin thickening noted. Moderate diffuse body wall edema is seen. Multilevel degenerative disc disease and facet arthropathy of the lumbar spine noted. Other: None. IMPRESSION: 1. Large left lateral thigh ulceration extending to the underlying gluteus vania capsule without definite involvement of the muscle. No drainable fluid collection. No CT signs of osteomyelitis. No cortical erosion or lytic osseous lesion noted in the adjacent scratched left greater trochanter. 2. Circumferential mural thickening of the urinary bladder that could be at least in part due to lack of distention. A Powell catheter is seen in the bladder. Underlying cystitis or infiltrative marrow lesion can not be ruled out. Correlate with urinalysis and follow-up by ultrasound to ensure regression. ATED BY: TERRA ARMENTA MD DICTATED DATE/TIME: 08/28/24 174 SIGNED BY: TERRA ARMENTA MD SIGNED DATE/TIME: 08/28/24 174 CC: Labs Test 09/14/24 14:28 09/09/24 05:12 09/08/24 06:03 08/27/24 10:10 Range/Units White Blood Count 6.5 # 4.4-10.8 10^3/uL Red Blood Count 3.22 L 4.5-5.90 10^6/uL Hemoglobin 9.7 L 13.5-17.5 g/dL Hematocrit 29.4 L 41.0-53.0 % Mean Corpuscular Volume 91.4 80.0-100.0 fL Mean Corpuscular Hemoglobin 30.2 28.0-32.0 pg Mean Corpuscular Hemoglobin Concent 33.1 32.0-36.0 g/dL Red Cell Distribution Width 14.0 11.8-14.3 % Platelet Count 231 140-450 10^3/uL Mean Platelet Volume 6.4 L 6.9-10.8 fL Neutrophils (%) (Auto) 72.8 37.0-80.0 % Lymphocytes (%) (Auto) 17.6 10.0-50.0 % Monocytes (%) (Auto) 8.1 0.0-12.0 % Eosinophils (%) (Auto) 1.0 0.0-7.0 % Basophils (%) (Auto) 0.5 0.0-2.0 % Neutrophils # (Auto) 4.7 1.6-8.6 10 ^3/uL Lymphocytes # (Auto) 1.1 0.4-5.4 10 ^3/uL Monocytes # (Auto) 0.5 0-1.3 10 ^3/uL Eosinophils # (Auto) 0.1 0-0.8 10 ^3/uL Basophils # (Auto) 0 0-0.2 10 ^3/uL Nucleated Red Blood Cells 0.2 % Sodium Level 133 L 136-145 mmol/L Potassium Level 3.9 3.5-5.1 mmol/L Chloride Level 99 98-107 mmol/L Carbon Dioxide Level 29 20-31 mmol/L Anion Gap 5 5-15 Blood Urea Nitrogen 14 9-23 mg/dL Creatinine 0.71 0.700-1.30 mg/dL Glomerular Filtration Rate Calc 95 >90 mL/min BUN/Creatinine Ratio 19.7 10.0-20.0 Serum Glucose 123 H 74-106 mg/dL Calcium Level 8.9 8.7-10.4 mg/dL Total Bilirubin 0.5 0.2-1.0 mg/dL Aspartate Amino Transferase (AST) 29 13-40 U/L Alanine Aminotransferase (ALT) 32 7-40 U/L Alkaline Phosphatase 217 H 46-116 U/L Total Protein 6.6 5.7-8.2 g/dL Albumin 3.7 3.2-4.8 g/dL Magnesium Level 1.8 1.6-2.6 mg/dL POC Glucose 72 70-106 mg/dl Prothrombin Time 12.2 H 9.3-11.8 sec Prothrombin Time INR 1.16 H 0.9-1.15 Activated Partial Thromboplast Time 28.3 24.5-34.5 SEC Test 08/24/24 03:05 08/23/24 03:00 08/22/24 03:05 08/21/24 04:10 Range/Units Phosphorus Level 2.9 2.4-5.1 mg/dL Ammonia < 10 L 11-32 umol/L Vitamin B12 Level 543 211-911 pg/mL Folic Acid 5.84 >5.38 ng/mL Triglycerides Level 67 < 150 mg/dL Creatine Kinase 510 H 46-171 U/L Test 08/20/24 11:50 08/19/24 08:40 08/15/24 14:47 08/15/24 11:20 Range/Units Hemoglobin A1c 6.1 H <5.7 % A1C Cortisol AM Sample 20.77 5.27-22.45 ug/dL Miscellaneous Referred Test (Rm Tmp Sent to [facility] Blood Gas Specimen Type Arterial Blood Gas Sample Site Right radial Blood Gas Patient Temperature 37.0 Arterial Blood Date Drawn [id number] Arterial Blood pH 7.421 7.350-7.450 Arterial Blood Partial Pressure CO2 40.5 35.0-48.0 mmHg Arterial Blood Partial Pressure O2 126.4 H 83.0-108.0 mmHg Arterial Blood HCO3 25.7 21.0-28.0 mmol/L Arterial Blood Oxygen Saturation 98.2 H 94.0-98.0 % Arterial Blood Base Excess 1.2 -2.0-3.0 mmol/L Arterial Blood Oxyhemoglobin 97.9 94.0-98.0 % Arterial Blood Carboxyhemoglobin 0.1 L 0.5-1.5 % Arterial Blood Methemoglobin 0.2 0.0-1.5 % Kirby Test Modified Blood Gas Total Hemoglobin 13.10 L 13.5-17.5 g/dL Blood Gas Modality Vent - cpap Blood Gas Spontaneous Rate 12 FiO2 % 30.0 Blood Gas Pressure Support 8 Blood Gas PEEP or CPAP 5.0 Test 08/15/24 06:55 08/14/24 03:35 08/13/24 03:05 08/12/24 20:55 Range/Units Blood Gas Set Respiration Rate 14.0 Blood Gas Tidal Volume 500.0 Platelet Estimate Decrea Large Platelets Few Random Vancomycin Level 12.6 H 5-10 ug/mL Influenza Type A Antigen Negative Negative Influenza Type B Antigen Negative Negative Test 08/12/24 15:13 08/11/24 13:02 08/11/24 03:10 08/10/24 20:30 Range/Units SARS-CoV-2 Antigen (Rapid) Negative NEGATIVE Urine Color Yellow Yellow Urine Clarity Turbid H Clear Urine pH 5.5 5.0-9.0 Urine Specific [place] 1.018 1.001-1.035 Urine Protein 1+ H Negative Urine Ketones Negative Negative Urine Blood 3+ H Negative /uL Urine Nitrite Negative Negative Urine Bilirubin Negative Negative Urine Urobilinogen 4 H Negative mg/dL Urine Leukocyte Esterase 1+ Negative /uL Urine RBC 13 0 - 3 /hpf Urine WBC 14 0 - 3 /hpf Urine Squamous Epithelial Cells Few <5 /hpf Urine Bacteria Few H None Seen /hpf Urine Hyaline Casts Few 0 - 2 /lpf Urine Granular Casts Few 0 /lpf Urine Mucus Few None Seen Urine Creatinine 67.44 30.0-125.0 mg/dL Urine Protein/Creatinine Ratio 1.00 Urine Sodium 32 L 40-220 mmol/L Urine Glucose Normal Normal mg/dL Urine Total Protein 67.3 H 1-14 mg/dL Vitamin D 25-Hydroxy 68.2 30.0-100 ng/mL Thyroid Stimulating Hormone (TSH) 4.48 0.55-4.78 uIU/mL Parathyroid Hormone (Intact) 169.0 H 18.4-80.1 pg/mL Hepatitis B Surface Antigen Negative Negative Hepatitis C Antibody Negative Negative Troponin I High Sensitivity 42 </=54 ng/L Test 08/10/24 15:07 08/10/24 14:08 08/10/24 13:42 Range/Units Blood Gas Critical Value Read Back Yes Blood Gas Notified Whom Dr. su staples Blood Gas Notified Time [id number] Blood Gas Notified By [employer]avorings Compounder don garrido Lactic Acid Level 0.7 0.4-2.0 mmol/L Urine Opiates Screen Neg NEGATIVE Urine Fentanyl Screen Neg NEGATIVE Urine Barbiturates Screen Neg NEGATIVE Urine Phencyclidine Screen Neg NEGATIVE Urine Amphetamines Screen Neg NEGATIVE Urine Benzodiazepines Screen Neg NEGATIVE Urine Cocaine Screen Neg NEGATIVE Urine Cannabinoids Screen Neg NEGATIVE Microbiology Date/Time Source Procedure Growth Status 09/07/24 18:00 Nose MRSA Screen - Final Complete 08/31/24 09:35 Urine - Powell [place] Urine Culture - Final Complete 08/26/24 15:45 Penis Gram Stain - Final Complete 08/26/24 15:45 Wound Culture - Final Pseudo fluorescence/putida Enterococcus faecium - VRE Presumptive Ema albicans Complete 08/12/24 19:02 Bronchial Washings Gram Stain - Final Complete 08/12/24 19:02 Respiratory Culture - Final Klebsiella pneumoniae Presumptive Ema albicans Complete 08/10/24 14:08 Blood Blood Culture - Final NO GROWTH AFTER 5 DAYS OF INCUBATION. Complete Assessment/Plan Problem List: (1) Rhabdomyolysis (2) Decubitus ulcers (3) Hypernatremia (4) Renal failure (5) Sepsis (6) Altered mental state (7) Severe dehydration Plan cleared from urology standpoint monthly powell exchanges outpt f/u Plan discussed with: EASTON Guzman NP Sep 16, 2024 19:00
[2024-09-16 21:00] VITALS: BP 103/50; PULSE 84; RESP 18; TEMP 98.7; O2SAT 99
--- NOTE | 2024-09-16 21:00 | DVHPN2 ---
Progress Note - Dictate Date Seen: Sep 16, 2024 Medical Necessity Reason Pt with a Central, PICC or Fol: Yes The following are medically ne: Powell Catheter Reason for powell catheter: Strict I&O Subjective Patient seen and examined at bedside. Breathing on room air. Overnight events reviewed. vital signs Vital Sign Date Time Temp Pulse Resp B/P (MAP) Pulse Ox O2 Delivery O2 Flow Rate FiO2 09/16/24 20:00 Room Air* 0 21 09/16/24 16:43 98.2 92 18 121/61 (81) 100 98.2 Total Intake and Output 09/15/24 09/15/24 09/16/24 15:00 23:00 07:00 Intake Total 720 ml 975 ml Output Total 650 ml 1300 ml Balance 70 ml -325 ml medications Current Medications Medications Dose Ordered Sig/Akiko Route Start Time Stop Time Status Last Admin Dose Admin Vancomycin HCl 200 ml @ 200 mls/hr Q12HR IV 08/10/24 22:00 UNV Diagnostic Test (Pha) 1 strip Q6HR 08/21/24 12:00 Cancel Insulin Human Regular FOLLOW SLIDING SCALE Q6HR SC 08/21/24 12:00 Cancel Dextrose 50 ml UD IV 08/21/24 10:00 Cancel Melatonin 3 mg HS PO 08/22/24 22:00 09/15/24 21:30 3 MG Midodrine 10 mg TID@0600,1200,1800 PO 08/23/24 12:00 09/16/24 17:43 10 MG Acetaminophen 650 mg Q6HPRN PRN PO 08/25/24 16:00 09/16/24 03:52 650 MG Enteral Nutritional Formula 28.8 gm TID PO 08/26/24 14:00 09/16/24 13:49 28.8 GM Fludrocortisone Acetate 0.1 mg DAILY PO 08/29/24 10:00 09/16/24 09:53 0.1 MG Lactulose 30 ml BIDPRN PRN PO 08/30/24 11:30 09/08/24 05:52 30 ML Pantoprazole Sodium 40 mg DAILY@0600 PO 09/02/24 06:00 09/16/24 05:18 40 MG Thiamine HCl 100 mg DAILY PO 09/02/24 10:00 09/16/24 09:53 100 MG Folic Acid 1 mg DAILY PO 09/02/24 10:00 09/16/24 09:53 1 MG Multivitamins 1 tab DAILY PO 09/02/24 10:00 09/16/24 09:53 1 TAB Apixaban 5 mg BID PO 09/02/24 22:00 09/14/24 08:41 5 MG Carbidopa/Levodopa 0.5 tab TID PO 09/05/24 14:00 09/16/24 13:58 0.5 TAB objective Gen.: Patient lying in bed in no apparent distress. Breathing on room air. Head: Normocephalic, atraumatic. Eyes: EOMI/PERRLA. Ears: Normal hearing. Normal anatomy. Neck/trachea: Trachea midline, supple. Nose: Normal external anatomy. Mouth: Moist mucous membranes. Chest: Decreased air entry bilaterally. No wheezing or rhonchi. Cardiovascular: Positive S1, positive S2. Regular rate and rhythm. Abdomen: Positive bowel sounds in all 4 quadrants. Soft, non-tender, non- distended. : Deferred. Rectal: Deferred. Skin: Warm, dry. Intact. Extremities: 2+ radial pulses bilaterally. No lower extremity edema. Neuro: Awake, alert, oriented x3. No gross motor or sensory deficits. Cranial nerves II through XII intact. Gait not assessed. laboratory and microbiology Laboratory Tests 09/14/24 14:28 Test 09/14/24 14:28 Range/Units Serum Glucose 123 H 74-106 mg/dL Assessment/Plan Impression: Acute hypoxic respiratory failure Leukocytosis Hypernatremia Parkinson's disease Acute metabolic encephalopathy Decubitus ulcers Sepsis Rhabdomyolysis Acute kidney injury Events: Remains on room air. No respiratory distress. Continue wound care Head of bed elevation Aspiration precautions Supportive care Continue bronchodilators PRN On Florinef Continue vitamin supplementation Incentive spirometry Continue midodrine 10 mg TID Monitor hemoglobin Accu-Cheks for glycemic monitoring Nutritional support Monitor renal function Powell in place - monitor ins and outs Protonix for GI prophylaxis Awaiting SNF placement. Disposition per placement. Labs and imaging reviewed. Rest of plan as noted below. Plan: S/p extubation 08/15/24 Breathing on room air. Supplemental O2 PRN. CT head: No acute intracranial hemorrhage or stroke. Pressors if necessary for hemodynamic support Titrate to keep MAP above 65 mmHg/SBP above 90 mmHg. Continue bronchodilators PRN Monitor hemoglobin Head of bed elevation Aspiration precautions Monitor renal function due to Acute kidney injury. Monitor electrolytes. Supplement as necessary. Monitor sodium due to hypernatremia IV fluid hydration Do not over correct sodium. Sodium 133 (09/14/24) Nutritional support. Accu-Cheks, ISS. GI prophylaxis - Protonix DVT prophylaxis. Prognosis: Guarded given multiple comorbidities. Rest of plan per hospitalist and other consultants. Thank you Dr. Newman for allowing me to participate in this patient's care. Further recommendations will depend on patient's clinical course. Please do not hesitate to contact me if you have any questions or concerns. This medical document was created using an electronic medical record system with [employer] dictation system. Although this document has been carefully reviewed, there may still be some phonetic and typographical errors. These areas are purely typographical due to imperfections of the software programs, and do not reflect any compromise in the patient's medical care. Dietary Evaluation Review Comments: 1. If on Vent Consider Nepro 30ml/hr x 24 hr,( 58g pro 1274 kcal). this will support pt's needs at 100% protein, 94 % kcal. 2. If EN not possible, and NPO > 7 days, consider TPN per pharmacy. 3. If off Vent, and pass speech eval, offer Renal Specific -50g protein 2g Na 3 K Low phos, 4. If off vent on hemo dialysis, pass speech eval, offer Renal Standard 2 gNa 3 K, Low Phos diet. Expected Outcomes/Goals: advance to diet able to eat independently. Plan discussed with: Patient, Other (SRAVANI Salinas) REY REAGAN MD Sep 16, 2024 21:00
--- NOTE | 2024-09-16 21:42 | DVHPN2 ---
Consult Progress Note Date Seen: Sep 16, 2024 Subjective Patient reports: Other (tolerating dialysis , alert and oriented but not moving much , able to follow commands and lift arms and legs ) Objective vital signs Vital Sign Date Time Temp Pulse Resp B/P (MAP) Pulse Ox O2 Delivery O2 Flow Rate FiO2 09/16/24 21:00 98.7 84 18 103/50 (67) 99 98.7 09/16/24 20:00 Room Air* 0 21 Total Intake and Output 09/15/24 09/15/24 09/16/24 15:00 23:00 07:00 Intake Total 720 ml 975 ml Output Total 650 ml 1300 ml Balance 70 ml -325 ml medications Current Medications Medications Dose Ordered Sig/Akiko Route Start Time Stop Time Status Last Admin Dose Admin Vancomycin HCl 200 ml @ 200 mls/hr Q12HR IV 08/10/24 22:00 UNV Diagnostic Test (Pha) 1 strip Q6HR 08/21/24 12:00 Cancel Insulin Human Regular FOLLOW SLIDING SCALE Q6HR SC 08/21/24 12:00 Cancel Dextrose 50 ml UD IV 08/21/24 10:00 Cancel Melatonin 3 mg HS PO 08/22/24 22:00 09/16/24 21:04 3 MG Midodrine 10 mg TID@0600,1200,1800 PO 08/23/24 12:00 09/16/24 17:43 10 MG Acetaminophen 650 mg Q6HPRN PRN PO 08/25/24 16:00 09/16/24 21:06 650 MG Enteral Nutritional Formula 28.8 gm TID PO 08/26/24 14:00 09/16/24 21:04 28.8 GM Fludrocortisone Acetate 0.1 mg DAILY PO 08/29/24 10:00 09/16/24 09:53 0.1 MG Lactulose 30 ml BIDPRN PRN PO 08/30/24 11:30 09/08/24 05:52 30 ML Pantoprazole Sodium 40 mg DAILY@0600 PO 09/02/24 06:00 09/16/24 05:18 40 MG Thiamine HCl 100 mg DAILY PO 09/02/24 10:00 09/16/24 09:53 100 MG Folic Acid 1 mg DAILY PO 09/02/24 10:00 09/16/24 09:53 1 MG Multivitamins 1 tab DAILY PO 09/02/24 10:00 09/16/24 09:53 1 TAB Apixaban 5 mg BID PO 09/02/24 22:00 09/14/24 08:41 5 MG Carbidopa/Levodopa 0.5 tab TID PO 09/05/24 14:00 09/16/24 21:05 0.5 TAB PHYSICAL EXAM: - GENERAL: Alert and oriented x 3. No acute distress. Well-nourished. - EYES: EOMI. Anicteric. - HENT: Moist mucous membranes. No scleral icterus. No cervical lymphadenopathy. - LUNGS: Clear to auscultation bilaterally. No accessory muscle use. - CARDIOVASCULAR: Regular rate and rhythm. No murmur. No JVD. - ABDOMEN: Soft, non-tender and non-distended. No palpable masses. - EXTREMITIES: No edema. Non-tender.?SKIN: No rashes or lesions. Warm. - NEUROLOGIC: No focal neurological deficits. CN II-XII grossly intact, but not individually tested - PSYCHIATRIC: Cooperative. Appropriate mood and affect. laboratory and microbiology Laboratory Tests 09/14/24 14:28 Test 09/14/24 14:28 Range/Units Serum Glucose 123 H 74-106 mg/dL Problem List/Assessment/Plan Problems(with codes): (1) Rhabdomyolysis (2) Decubitus ulcers (3) Hypernatremia (4) Renal failure (5) Sepsis (6) Altered mental state (7) Severe dehydration Problem List/Assessment/Plan ASSESSMENT AND PLAN: ID Problem List: - Chronic sacral decubitus ulcer - Thigh cellulitis - Klebsiella pneumonia - VRE colonization - Sepsis - Penile ulcer DVT Assessment This is a 78-year-old male with a known history of chronic decubitus ulcer. He was found altered and incontinent about three weeks ago, requiring ICU admission and vasopressors. Multiple antibiotic regimens have been used, including meropenem, vancomycin, linezolid, ceftriaxone, azithromycin, and piperacillin- tazobactam (Zosyn). Recent wound cultures grew Klebsiella pneumoniae and VRE (felt to be colonization rather than an active infection). He also has a large left lateral thigh ulceration with necrosis and drainage, non-healing upper back wounds, and a penile ulcer. He is currently off vasopressors and remains on apixaban therapy for an identified DVT. 08/09: meropenem dced 08/10: linezolid dced 09/14: sacral ulcer is stage 1-2 , appears to be clinically stable and off all antibiotics 09/15: whitecount is 6.4 09/16: no signs of acute infection at this time Plan: - Monitor the patient off all antibiotics - Suspect VRE as colonization; no new antimicrobial coverage for this at present - Continue supportive care with IV fluids as needed, and use pressors if necessary to maintain MAP > 65 - Maintain blood glucose < 180 mg/dL with insulin as needed - Defer management of anticoagulation to the primary team - Continue local wound care and follow up on debridements as necessary Isolation Precautions: standard Assessment and plan were discussed with the patient (and/or appropriate decision-makers) as written above. Plan is subject to change pending new incoming information/diagnostics. Thank you for this consult. ID will continue to follow. Please contact Infectious Disease for any questions or concerns. Electronically signed by: Gil Miller MD, 09/10/2024 Plan discussed with: Other Dietary Evaluation Review Comments: 1. If on Vent Consider Nepro 30ml/hr x 24 hr,( 58g pro 1274 kcal). this will support pt's needs at 100% protein, 94 % kcal. 2. If EN not possible, and NPO > 7 days, consider TPN per pharmacy. 3. If off Vent, and pass speech eval, offer Renal Specific -50g protein 2g Na 3 K Low phos, 4. If off vent on hemo dialysis, pass speech eval, offer Renal Standard 2 gNa 3 K, Low Phos diet. Expected Outcomes/Goals: advance to diet able to eat independently. GIL MILLER MD Sep 16, 2024 21:42
[2024-09-17] VITALS (7 sets, daily range): BP systolic 96–119; BP diastolic 52–64; PULSE 81–86; RESP 15–20; TEMP 97.3–98.5; O2SAT 96–100
--- NOTE | 2024-09-17 15:20 | DVHPN2 ---
Subjective Patient seen And examined at bedside.. Complain of weak and tired. Urine bag is cleared out and no more gross hematuria. Reviewed: Care Plan, H&P, Labs, Medications, Previous Orders, Radiology, Other (Consultants) Changes from previous H/P or p: No Changes General: Per HPI Objective Vitals Vital Signs Date Time Temp Pulse Resp B/P (MAP) Pulse Ox O2 Delivery O2 Flow Rate FiO2 09/17/24 13:00 97.3 84 16 117/59 (78) 99 97.3 09/17/24 08:00 Room Air* 0 21 Intake/Output Intake and Output 09/17/24 07:00 Intake Total 2175 ml Output Total 2250 ml Balance -75 ml Intake Oral 1675 ml IV Total 500 ml Output Urine Total 2250 ml # Bowel Movements 1 General Appearance: Alert, Oriented X3, Cooperative, No acute distress HEENT: Atraumatic, PERRLA Lungs: Clear to auscultation, Normal air movement Cardiovascular: Regular rate, Normal S1, Normal S2 Abdomen: Normal bowel sounds, Soft, No tenderness Musculoskeletal: Weak motor strength RUE, Weak motor strength LUE, Weak motor strength RLE, Weak motor strength LLE Extremities: Other Skin: Wounds Psych/Mental Status: Other Medications Current Medications Medications Dose Ordered Sig/Akiko Route Start Time Stop Time Status Last Admin Dose Admin Vancomycin HCl 200 ml @ 200 mls/hr Q12HR IV 08/10/24 22:00 UNV Diagnostic Test (Pha) 1 strip Q6HR 08/21/24 12:00 Cancel Insulin Human Regular FOLLOW SLIDING SCALE Q6HR SC 08/21/24 12:00 Cancel Dextrose 50 ml UD IV 08/21/24 10:00 Cancel Melatonin 3 mg HS PO 08/22/24 22:00 09/16/24 21:04 3 MG Midodrine 10 mg TID@0600,1200,1800 PO 08/23/24 12:00 09/17/24 13:16 10 MG Acetaminophen 650 mg Q6HPRN PRN PO 08/25/24 16:00 09/17/24 03:44 650 MG Enteral Nutritional Formula 28.8 gm TID PO 08/26/24 14:00 09/17/24 05:05 28.8 GM Fludrocortisone Acetate 0.1 mg DAILY PO 08/29/24 10:00 09/17/24 10:13 0.1 MG Lactulose 30 ml BIDPRN PRN PO 08/30/24 11:30 09/08/24 05:52 30 ML Pantoprazole Sodium 40 mg DAILY@0600 PO 09/02/24 06:00 09/17/24 05:06 40 MG Thiamine HCl 100 mg DAILY PO 09/02/24 10:00 09/17/24 10:13 100 MG Folic Acid 1 mg DAILY PO 09/02/24 10:00 09/17/24 10:13 1 MG Multivitamins 1 tab DAILY PO 09/02/24 10:00 09/17/24 10:13 1 TAB Apixaban 5 mg BID PO 09/02/24 22:00 09/14/24 08:41 5 MG Carbidopa/Levodopa 0.5 tab TID PO 09/05/24 14:00 09/17/24 14:24 0.5 TAB Laboratory Results Laboratory Tests 09/14/24 14:28 Urinalysis Test 08/11/24 13:02 Urine Color Yellow (Yellow) Urine Clarity Turbid (Clear) H Urine pH 5.5 (5.0-9.0) Urine Specific [place] 1.018 (1.001-1.035) Urine Protein 1+ (Negative) H Urine Ketones Negative (Negative) Urine Blood 3+ /uL (Negative) H Urine Nitrite Negative (Negative) Urine Bilirubin Negative (Negative) Urine Urobilinogen 4 mg/dL (Negative) H Urine Leukocyte Esterase 1+ /uL (Negative) Urine RBC 13 /hpf (0 - 3) Urine WBC 14 /hpf (0 - 3) Urine Squamous Epithelial Cells Few /hpf (<5) Urine Bacteria Few /hpf (None Seen) H Urine Hyaline Casts Few /lpf (0 - 2) Urine Granular Casts Few /lpf (0) Urine Mucus Few (None Seen) Urine Creatinine 67.44 mg/dL (30.0-125.0) Urine Protein/Creatinine Ratio 1.00 Urine Sodium 32 mmol/L (40-220) L Urine Glucose Normal mg/dL (Normal) Urine Total Protein 67.3 mg/dL (1-14) H Microbiology Microbiology Date/Time Source Procedure Growth Status 09/07/24 18:00 Nose MRSA Screen - Final Complete 08/31/24 09:35 Urine - [place] Urine Culture - Final Complete 08/26/24 15:45 Penis Gram Stain - Final Complete 08/26/24 15:45 Wound Culture - Final Pseudo fluorescence/putida Enterococcus faecium - VRE Presumptive Ema albicans Complete 08/12/24 19:02 Bronchial Washings Gram Stain - Final Complete 08/12/24 19:02 Respiratory Culture - Final Klebsiella pneumoniae Presumptive Ema albicans Complete 08/10/24 14:08 Blood Blood Culture - Final NO GROWTH AFTER 5 DAYS OF INCUBATION. Complete Labs and/or images reviewed: Labs reviewed by me Assessment/Plan Assessment/Plan Sepsis with septic shock Metabolic encephalopathy, Wound infection of left buttock and back Parkinson's disease R leg DVT Hypernatremia: resolved [place]: Better Respiratory failure: Better Gross hematuria PLAN: Continuing current management. Continuing with Wound care Continuing with IV antibiotics Zyvox and meropenem Infectious disease consult appreciated Continuing with midodrine, Florinef, Continuing with morphine and [place] for pain control Wound I and D was done by surgeon Continuing Sinemet Discharge planning to snf Waiting for insurance approval. According to social sciences research scientist, [facility] had declined his [facility]. The insurance company one a peer to peer with me prior to consider him of [facility]. I am still waiting for peer to peer. They haven't call me yet. Urology consult for gross hematuria. Norberto Welch. Will follow labs Per daughter she had switch the patient to straight Medicare/Medicaid on September 17, 2024. She hope that we can place the patient to [facility] near [place] where she resides so she came come and visit him better than here which is far away from where she lives. [facility]charge to [facility] today because bed become available for him. This medical document was created using an electronic medical record system with [employer] direct computerized dictation system. Although this document has been carefully reviewed, there may still be some phonetic and typographical errors. These areas are purely typographical due to imperfections of the software programs, and do not reflect any compromise in the patient's medical care. Plan discussed with: Patient Date of Service: Sep 18, 2024 Billing Provider: MAGALYS LAMAS MD Common Visit Codes: 06208-SUD/OBS DISCH DAY >30min MAGALYS LAMAS MD Sep 17, 2024 15:20
[2024-09-17] MEDS ORDERED: ACETAMINOPHEN 325 MG TAB PO PRN (16:30)
[2024-09-17] MEDS: HYDROcodone-ACET 5/325MG TAB PO PRN (18:48)
--- NOTE | 2024-09-17 21:27 | DVHPN2 ---
Progress Note - Dictate Date Seen: Sep 17, 2024 Medical Necessity Reason Pt with a Central, PICC or Fol: Yes The following are medically ne: [place] Catheter Reason for powell catheter: Strict I&O Subjective Patient seen and examined at bedside. Breathing on room air. Overnight events reviewed. vital signs Vital Sign Date Time Temp Pulse Resp B/P (MAP) Pulse Ox O2 Delivery O2 Flow Rate FiO2 09/17/24 21:00 97.6 86 19 119/64 (82) 96 97.6 09/17/24 08:00 Room Air* 0 21 Total Intake and Output 09/16/24 09/16/24 09/17/24 15:00 23:00 07:00 Intake Total 500 ml 1000 ml 675 ml Output Total 1400 ml 850 ml Balance 500 ml -400 ml -175 ml medications Current Medications Medications Dose Ordered Sig/Akiko Route Start Time Stop Time Status Last Admin Dose Admin Vancomycin HCl 200 ml @ 200 mls/hr Q12HR IV 08/10/24 22:00 UNV Diagnostic Test (Pha) 1 strip Q6HR 08/21/24 12:00 Cancel Insulin Human Regular FOLLOW SLIDING SCALE Q6HR SC 08/21/24 12:00 Cancel Dextrose 50 ml UD IV 08/21/24 10:00 Cancel Melatonin 3 mg HS PO 08/22/24 22:00 09/16/24 21:04 3 MG Midodrine 10 mg TID@0600,1200,1800 PO 08/23/24 12:00 09/17/24 18:52 10 MG Enteral Nutritional Formula 28.8 gm TID PO 08/26/24 14:00 09/17/24 15:43 28.8 GM Fludrocortisone Acetate 0.1 mg DAILY PO 08/29/24 10:00 09/17/24 10:13 0.1 MG Lactulose 30 ml BIDPRN PRN PO 08/30/24 11:30 09/08/24 05:52 30 ML Pantoprazole Sodium 40 mg DAILY@0600 PO 09/02/24 06:00 09/17/24 05:06 40 MG Thiamine HCl 100 mg DAILY PO 09/02/24 10:00 09/17/24 10:13 100 MG Folic Acid 1 mg DAILY PO 09/02/24 10:00 09/17/24 10:13 1 MG Multivitamins 1 tab DAILY PO 09/02/24 10:00 09/17/24 10:13 1 TAB Apixaban 5 mg BID PO 09/02/24 22:00 09/14/24 08:41 5 MG Carbidopa/Levodopa 0.5 tab TID PO 09/05/24 14:00 09/17/24 14:24 0.5 TAB Acetaminophen 650 mg Q6HPRN PRN PO 09/17/24 16:30 Acetaminophen/ Hydrocodone Bitart 1 tab Q6HPRN PRN PO 09/17/24 16:30 09/17/24 18:48 1 TAB objective Gen.: Patient lying in bed in no apparent distress. Breathing on room air. Head: Normocephalic, atraumatic. Eyes: EOMI/PERRLA. Ears: Normal hearing. Normal anatomy. Neck/trachea: Trachea midline, supple. Nose: Normal external anatomy. Mouth: Moist mucous membranes. Chest: Decreased air entry bilaterally. No wheezing or rhonchi. Cardiovascular: Positive S1, positive S2. Regular rate and rhythm. Abdomen: Positive bowel sounds in all 4 quadrants. Soft, non-tender, non- distended. : Deferred. Rectal: Deferred. Skin: Warm, dry. Intact. Extremities: 2+ radial pulses bilaterally. No lower extremity edema. Neuro: Awake, alert, oriented x3. No gross motor or sensory deficits. Cranial nerves II through XII intact. Gait not assessed. laboratory and microbiology Laboratory Tests 09/14/24 14:28 Test 09/14/24 14:28 Range/Units Serum Glucose 123 H 74-106 mg/dL Assessment/Plan Impression: Acute hypoxic respiratory failure Leukocytosis Hypernatremia Parkinson's disease Acute metabolic encephalopathy Decubitus ulcers Sepsis Rhabdomyolysis Acute kidney injury Events: Remains on room air. No respiratory distress. Continue wound care Head of bed elevation Aspiration precautions Supportive care Continue bronchodilators PRN On Florinef Continue vitamin supplementation Incentive spirometry Continue midodrine 10 mg TID On medication for Parkinson's Monitor hemoglobin Accu-Cheks for glycemic monitoring Nutritional support Monitor renal function Powell in place - monitor ins and outs Protonix for GI prophylaxis Awaiting SNF placement. Disposition per placement. Labs and imaging reviewed. Rest of plan as noted below. Plan: S/p extubation 08/15/24 Breathing on room air. Supplemental O2 PRN. CT head: No acute intracranial hemorrhage or stroke. Pressors if necessary for hemodynamic support Titrate to keep MAP above 65 mmHg/SBP above 90 mmHg. Continue bronchodilators PRN Monitor hemoglobin Head of bed elevation Aspiration precautions Monitor renal function due to Acute kidney injury. Monitor electrolytes. Supplement as necessary. Monitor sodium due to hypernatremia IV fluid hydration Do not over correct sodium. Sodium 133 (09/14/24) Nutritional support. Accu-Cheks, ISS. GI prophylaxis - Protonix DVT prophylaxis. Prognosis: Guarded given multiple comorbidities. Rest of plan per hospitalist and other consultants. Thank you Dr. Newman for allowing me to participate in this patient's care. Further recommendations will depend on patient's clinical course. Please do not hesitate to contact me if you have any questions or concerns. This medical document was created using an electronic medical record system with [employer] dictation system. Although this document has been carefully reviewed, there may still be some phonetic and typographical errors. These areas are purely typographical due to imperfections of the software programs, and do not reflect any compromise in the patient's medical care. Dietary Evaluation Review Comments: 1. If on Vent Consider Nepro 30ml/hr x 24 hr,( 58g pro 1274 kcal). this will support pt's needs at 100% protein, 94 % kcal. 2. If EN not possible, and NPO > 7 days, consider TPN per pharmacy. 3. If off Vent, and pass speech eval, offer Renal Specific -50g protein 2g Na 3 K Low phos, 4. If off vent on hemo dialysis, pass speech eval, offer Renal Standard 2 gNa 3 K, Low Phos diet. Expected Outcomes/Goals: advance to diet able to eat independently. Plan discussed with: Patient, Other (SRAVANI Salinas) REY REAGAN MD Sep 17, 2024 21:27
--- NOTE | 2024-09-17 22:49 | DVHPN2 ---
Consult Progress Note Date Seen: Sep 17, 2024 Subjective Patient reports: Other (no abdominal pain or dysuria , does have some bloody urine that is being evaluated and no superpubic tenderness ) Objective vital signs Vital Sign Date Time Temp Pulse Resp B/P (MAP) Pulse Ox O2 Delivery O2 Flow Rate FiO2 09/17/24 21:00 97.6 86 19 119/64 (82) 96 97.6 09/17/24 08:00 Room Air* 0 21 Total Intake and Output 09/16/24 09/16/24 09/17/24 15:00 23:00 07:00 Intake Total 500 ml 1000 ml 675 ml Output Total 1400 ml 850 ml Balance 500 ml -400 ml -175 ml medications Current Medications Medications Dose Ordered Sig/Akiko Route Start Time Stop Time Status Last Admin Dose Admin Vancomycin HCl 200 ml @ 200 mls/hr Q12HR IV 08/10/24 22:00 UNV Diagnostic Test (Pha) 1 strip Q6HR 08/21/24 12:00 Cancel Insulin Human Regular FOLLOW SLIDING SCALE Q6HR SC 08/21/24 12:00 Cancel Dextrose 50 ml UD IV 08/21/24 10:00 Cancel Melatonin 3 mg HS PO 08/22/24 22:00 09/17/24 21:21 3 MG Midodrine 10 mg TID@0600,1200,1800 PO 08/23/24 12:00 09/17/24 18:52 10 MG Enteral Nutritional Formula 28.8 gm TID PO 08/26/24 14:00 09/17/24 15:43 28.8 GM Fludrocortisone Acetate 0.1 mg DAILY PO 08/29/24 10:00 09/17/24 10:13 0.1 MG Lactulose 30 ml BIDPRN PRN PO 08/30/24 11:30 09/08/24 05:52 30 ML Pantoprazole Sodium 40 mg DAILY@0600 PO 09/02/24 06:00 09/17/24 05:06 40 MG Thiamine HCl 100 mg DAILY PO 09/02/24 10:00 09/17/24 10:13 100 MG Folic Acid 1 mg DAILY PO 09/02/24 10:00 09/17/24 10:13 1 MG Multivitamins 1 tab DAILY PO 09/02/24 10:00 09/17/24 10:13 1 TAB Apixaban 5 mg BID PO 09/02/24 22:00 09/17/24 21:19 5 MG Carbidopa/Levodopa 0.5 tab TID PO 09/05/24 14:00 09/17/24 21:17 0.5 TAB Acetaminophen 650 mg Q6HPRN PRN PO 09/17/24 16:30 Acetaminophen/ Hydrocodone Bitart 1 tab Q6HPRN PRN PO 09/17/24 16:30 09/17/24 18:48 1 TAB PHYSICAL EXAM: - GENERAL: Alert and oriented x 3. No acute distress. Well-nourished. - EYES: EOMI. Anicteric. - HENT: Moist mucous membranes. No scleral icterus. No cervical lymphadenopathy. - LUNGS: Clear to auscultation bilaterally. No accessory muscle use. - CARDIOVASCULAR: Regular rate and rhythm. No murmur. No JVD. - ABDOMEN: Soft, non-tender and non-distended. No palpable masses. - EXTREMITIES: No edema. Non-tender.?SKIN: No rashes or lesions. Warm. - NEUROLOGIC: No focal neurological deficits. CN II-XII grossly intact, but not individually tested - PSYCHIATRIC: Cooperative. Appropriate mood and affect. laboratory and microbiology Laboratory Tests 09/14/24 14:28 Test 09/14/24 14:28 Range/Units Serum Glucose 123 H 74-106 mg/dL Problem List/Assessment/Plan Problems(with codes): (1) Rhabdomyolysis (2) Decubitus ulcers (3) Renal failure (4) Hypernatremia (5) Sepsis (6) Altered mental state (7) Severe dehydration Problem List/Assessment/Plan ASSESSMENT AND PLAN: ID Problem List: - Chronic sacral decubitus ulcer - Thigh cellulitis - Klebsiella pneumonia - VRE colonization - Sepsis - Penile ulcer DVT Assessment This is a 78-year-old male with a known history of chronic decubitus ulcer. He was found altered and incontinent about three weeks ago, requiring ICU admission and vasopressors. Multiple antibiotic regimens have been used, including meropenem, vancomycin, linezolid, ceftriaxone, azithromycin, and piperacillin- tazobactam (Zosyn). Recent wound cultures grew Klebsiella pneumoniae and VRE (felt to be colonization rather than an active infection). He also has a large left lateral thigh ulceration with necrosis and drainage, non-healing upper back wounds, and a penile ulcer. He is currently off vasopressors and remains on apixaban therapy for an identified DVT. 08/09: meropenem dced 08/10: linezolid dced 09/14: sacral ulcer is stage 1-2 , appears to be clinically stable and off all antibiotics 09/15: whitecount is 6.4 09/16: no signs of acute infection at this time 09/17: patient is being evaluated by urology for gross hematuria , tolerating dialysis and awaiting placement at [facility] Plan: - Monitor the patient off all antibiotics - Suspect VRE as colonization; no new antimicrobial coverage for this at present - Continue supportive care with IV fluids as needed, and use pressors if necessary to maintain MAP > 65 - Maintain blood glucose < 180 mg/dL with insulin as needed - Defer management of anticoagulation to the primary team - Continue local wound care and follow up on debridements as necessary Isolation Precautions: standard Assessment and plan were discussed with the patient (and/or appropriate decision-makers) as written above. Plan is subject to change pending new incoming information/diagnostics. Thank you for this consult. ID will continue to follow. Please contact Infectious Disease for any questions or concerns. Electronically signed by: Gil Miller MD, 09/10/2024 Plan discussed with: Other Dietary Evaluation Review Comments: 1. If on Vent Consider Nepro 30ml/hr x 24 hr,( 58g pro 1274 kcal). this will support pt's needs at 100% protein, 94 % kcal. 2. If EN not possible, and NPO > 7 days, consider TPN per pharmacy. 3. If off Vent, and pass speech eval, offer Renal Specific -50g protein 2g Na 3 K Low phos, 4. If off vent on hemo dialysis, pass speech eval, offer Renal Standard 2 gNa 3 K, Low Phos diet. Expected Outcomes/Goals: advance to diet able to eat independently. GIL MILLER MD Sep 17, 2024 22:49
[2024-09-18 05:00] VITALS: BP 102/48; PULSE 85; RESP 17; TEMP 97.5; O2SAT 99
[2024-09-18 08:05] VITALS: PULSE 103; RESP 16; O2SAT 98
[2024-09-18 08:39] VITALS: BP 98/52; PULSE 63; RESP 16; TEMP 98.6; O2SAT 84; O2SAT 94
[2024-09-18 12:33] VITALS: BP 98/50; PULSE 80; RESP 18; TEMP 98.3; O2SAT 100
--- NOTE | 2024-09-18 12:50 | DVHPN2 ---
Subjective Patient seen And examined at bedside.. Complain of weak and tired. Reviewed: Care Plan, H&P, Labs, Medications, Previous Orders, Radiology, Other (Consultants) Changes from previous H/P or p: No Changes General: Per HPI Objective Vitals Vital Signs Date Time Temp Pulse Resp B/P (MAP) Pulse Ox O2 Delivery O2 Flow Rate FiO2 09/18/24 12:33 98.3 80 18 98/50 (66) 100 98.3 09/18/24 08:05 Room Air* 0 21 Intake/Output Intake and Output 09/18/24 07:00 Intake Total 1826 ml Output Total 4575 ml Balance -2749 ml Intake Oral 1826 ml Output Urine Total 4575 ml General Appearance: Alert, Oriented X3, Cooperative, No acute distress HEENT: Atraumatic, PERRLA Lungs: Clear to auscultation, Normal air movement Cardiovascular: Regular rate, Normal S1, Normal S2 Abdomen: Normal bowel sounds, Soft, No tenderness Musculoskeletal: Weak motor strength RUE, Weak motor strength LUE, Weak motor strength RLE, Weak motor strength LLE Extremities: Other Skin: Wounds Psych/Mental Status: Other Medications Current Medications Medications Dose Ordered Sig/Akiko Route Start Time Stop Time Status Last Admin Dose Admin Vancomycin HCl 200 ml @ 200 mls/hr Q12HR IV 08/10/24 22:00 UNV Diagnostic Test (Pha) 1 strip Q6HR 08/21/24 12:00 Cancel Insulin Human Regular FOLLOW SLIDING SCALE Q6HR SC 08/21/24 12:00 Cancel Dextrose 50 ml UD IV 08/21/24 10:00 Cancel Melatonin 3 mg HS PO 08/22/24 22:00 09/17/24 21:21 3 MG Midodrine 10 mg TID@0600,1200,1800 PO 08/23/24 12:00 09/18/24 05:23 10 MG Enteral Nutritional Formula 28.8 gm TID PO 08/26/24 14:00 09/18/24 05:25 28.8 GM Fludrocortisone Acetate 0.1 mg DAILY PO 08/29/24 10:00 09/18/24 09:53 0.1 MG Lactulose 30 ml BIDPRN PRN PO 08/30/24 11:30 09/08/24 05:52 30 ML Pantoprazole Sodium 40 mg DAILY@0600 PO 09/02/24 06:00 09/18/24 05:24 40 MG Thiamine HCl 100 mg DAILY PO 09/02/24 10:00 09/18/24 09:53 100 MG Folic Acid 1 mg DAILY PO 09/02/24 10:00 09/18/24 09:53 1 MG Multivitamins 1 tab DAILY PO 09/02/24 10:00 09/18/24 09:53 1 TAB Apixaban 5 mg BID PO 09/02/24 22:00 09/17/24 21:19 5 MG Carbidopa/Levodopa 0.5 tab TID PO 09/05/24 14:00 09/18/24 05:23 0.5 TAB Acetaminophen 650 mg Q6HPRN PRN PO 09/17/24 16:30 Acetaminophen/ Hydrocodone Bitart 1 tab Q6HPRN PRN PO 09/17/24 16:30 09/18/24 09:54 1 TAB Laboratory Results Laboratory Tests 09/14/24 14:28 Urinalysis Test 08/11/24 13:02 Urine Color Yellow (Yellow) Urine Clarity Turbid (Clear) H Urine pH 5.5 (5.0-9.0) Urine Specific [place] 1.018 (1.001-1.035) Urine Protein 1+ (Negative) H Urine Ketones Negative (Negative) Urine Blood 3+ /uL (Negative) H Urine Nitrite Negative (Negative) Urine Bilirubin Negative (Negative) Urine Urobilinogen 4 mg/dL (Negative) H Urine Leukocyte Esterase 1+ /uL (Negative) Urine RBC 13 /hpf (0 - 3) Urine WBC 14 /hpf (0 - 3) Urine Squamous Epithelial Cells Few /hpf (<5) Urine Bacteria Few /hpf (None Seen) H Urine Hyaline Casts Few /lpf (0 - 2) Urine Granular Casts Few /lpf (0) Urine Mucus Few (None Seen) Urine Creatinine 67.44 mg/dL (30.0-125.0) Urine Protein/Creatinine Ratio 1.00 Urine Sodium 32 mmol/L (40-220) L Urine Glucose Normal mg/dL (Normal) Urine Total Protein 67.3 mg/dL (1-14) H Microbiology Microbiology Date/Time Source Procedure Growth Status 09/07/24 18:00 Nose MRSA Screen - Final Complete 08/31/24 09:35 Urine - [place] Urine Culture - Final Complete 08/26/24 15:45 Penis Gram Stain - Final Complete 08/26/24 15:45 Wound Culture - Final Pseudo fluorescence/putida Enterococcus faecium - VRE Presumptive Ema albicans Complete 08/12/24 19:02 Bronchial Washings Gram Stain - Final Complete 08/12/24 19:02 Respiratory Culture - Final Klebsiella pneumoniae Presumptive Ema albicans Complete 08/10/24 14:08 Blood Blood Culture - Final NO GROWTH AFTER 5 DAYS OF INCUBATION. Complete Labs and/or images reviewed: Labs reviewed by me Assessment/Plan Assessment/Plan Sepsis with septic shock Metabolic encephalopathy, Wound infection of left buttock and back Parkinson's disease R leg DVT Hypernatremia: resolved [place]: Better Respiratory failure: Better Gross hematuria PLAN: Continuing current management. Continuing with Wound care Continuing with IV antibiotics Zyvox and meropenem Infectious disease consult appreciated Continuing with midodrine, Florinef, Continuing with morphine and [place] for pain control Wound I and D was done by surgeon Continuing Sinemet Discharge planning to snf Waiting for insurance approval. According to social and human services assistant, Amena had declined his [facility] home facility. The insurance company one a peer to peer with me prior to consider him of correction home facility. I am still waiting for peer to peer. They haven't call me yet. Urology consult for gross hematuria. Flush Welch. Will follow labs Per daughter she had switch the patient to straight Medicare/Medicaid on September 17, 2024. She hope that we can place the patient to correction home facility near [place] where she resides so she came come and visit him better than here which is far away from where she lives. 09/18/2024: The patient will be discharged today. He finally get accepted to correction home facility for physical therapy. Follow up with primary care physician 1-2 weeks. Activity as tolerated. Diet low-salt low-cholesterol diet. Patient follow up with urologist as outpatient Plan discussed with: Patient My Orders Orders - MAGALYS LAMAS MD Procedure Category Date Status Time Acetaminophen Tablet PHA 09/17/24 In Process (Tylenol Tablet) 16:30 Hydrocodone-Acet PHA 09/17/24 In Process 5/325mg Tab ([place] 16:30 Date of Service: Sep 18, 2024 Billing Provider: MAGALYS LAMAS MD Common Visit Codes: 10250-UXB/OBS DISCH DAY >30min MAGALYS LAMAS MD Sep 18, 2024 12:49
[2024-09-18 16:57] VITALS: BP 101/53; PULSE 82; RESP 18; TEMP 98.3; O2SAT 91
--- NOTE | 2024-09-18 21:42 | DVHPN2 ---
Progress Note - Dictate Date Seen: Sep 18, 2024 Medical Necessity Reason Pt with a Central, PICC or Fol: Yes The following are medically ne: Powell Catheter Reason for powell catheter: Strict I&O Subjective Patient seen and examined at bedside. Breathing on room air. Overnight events reviewed. vital signs Vital Sign Date Time Temp Pulse Resp B/P (MAP) Pulse Ox O2 Delivery O2 Flow Rate FiO2 09/18/24 16:57 98.3 82 18 101/53 (69) 91 98.3 09/18/24 08:05 Room Air* 0 21 Total Intake and Output 09/17/24 09/17/24 09/18/24 15:00 23:00 07:00 Intake Total 926 ml 900 ml Output Total 2100 ml 2475 ml Balance -1174 ml -1575 ml medications Current Medications Medications Dose Ordered Sig/Akiko Route Start Time Stop Time Status Last Admin Dose Admin Vancomycin HCl 200 ml @ 200 mls/hr Q12HR IV 08/10/24 22:00 UNV Diagnostic Test (Pha) 1 strip Q6HR 08/21/24 12:00 Cancel Insulin Human Regular FOLLOW SLIDING SCALE Q6HR SC 08/21/24 12:00 Cancel Dextrose 50 ml UD IV 08/21/24 10:00 Cancel objective Gen.: Patient lying in bed in no apparent distress. Breathing on room air. Head: Normocephalic, atraumatic. Eyes: EOMI/PERRLA. Ears: Normal hearing. Normal anatomy. Neck/trachea: Trachea midline, supple. Nose: Normal external anatomy. Mouth: Moist mucous membranes. Chest: Decreased air entry bilaterally. No wheezing or rhonchi. Cardiovascular: Positive S1, positive S2. Regular rate and rhythm. Abdomen: Positive bowel sounds in all 4 quadrants. Soft, non-tender, non- distended. : Deferred. Rectal: Deferred. Skin: Warm, dry. Intact. Extremities: 2+ radial pulses bilaterally. No lower extremity edema. Neuro: Awake, alert, oriented x3. No gross motor or sensory deficits. Cranial nerves II through XII intact. Gait not assessed. laboratory and microbiology Laboratory Tests 09/14/24 14:28 Test 09/14/24 14:28 Range/Units Serum Glucose 123 H 74-106 mg/dL Assessment/Plan Impression: Acute hypoxic respiratory failure Leukocytosis Hypernatremia Parkinson's disease Acute metabolic encephalopathy Decubitus ulcers Sepsis Rhabdomyolysis Acute kidney injury Events: Remains on room air. No respiratory distress. Continue wound care Head of bed elevation Aspiration precautions Supportive care Continue bronchodilators PRN On Florinef Continue vitamin supplementation Incentive spirometry Continue midodrine 10 mg TID On medication for Parkinson's Monitor hemoglobin Accu-Cheks for glycemic monitoring Nutritional support Monitor renal function Powell in place - monitor ins and outs Protonix for GI prophylaxis Patient is stable for discharge from the pulmonary standpoint Awaiting SNF placement. Disposition per placement. Labs and imaging reviewed. Rest of plan as noted below. Plan: S/p extubation 08/15/24 Breathing on room air. Supplemental O2 PRN. CT head: No acute intracranial hemorrhage or stroke. Pressors if necessary for hemodynamic support Titrate to keep MAP above 65 mmHg/SBP above 90 mmHg. Continue bronchodilators PRN Monitor hemoglobin Head of bed elevation Aspiration precautions Monitor renal function due to Acute kidney injury. Monitor electrolytes. Supplement as necessary. Monitor sodium due to hypernatremia IV fluid hydration Do not over correct sodium. Sodium 133 (09/14/24) Nutritional support. Accu-Cheks, ISS. GI prophylaxis - Protonix DVT prophylaxis. Prognosis: Guarded given multiple comorbidities. Rest of plan per hospitalist and other consultants. Thank you Dr. Newman for allowing me to participate in this patient's care. Further recommendations will depend on patient's clinical course. Please do not hesitate to contact me if you have any questions or concerns. This medical document was created using an electronic medical record system with [employer] dictation system. Although this document has been carefully reviewed, there may still be some phonetic and typographical errors. These areas are purely typographical due to imperfections of the software programs, and do not reflect any compromise in the patient's medical care. Dietary Evaluation Review Comments: 1. If on Vent Consider Nepro 30ml/hr x 24 hr,( 58g pro 1274 kcal). this will support pt's needs at 100% protein, 94 % kcal. 2. If EN not possible, and NPO > 7 days, consider TPN per pharmacy. 3. If off Vent, and pass speech eval, offer Renal Specific -50g protein 2g Na 3 K Low phos, 4. If off vent on hemo dialysis, pass speech eval, offer Renal Standard 2 gNa 3 K, Low Phos diet. Expected Outcomes/Goals: advance to diet able to eat independently. Plan discussed with: Patient, Other (SRAVANI Silva) REY REAGAN MD Sep 18, 2024 21:42
--- NOTE | 2024-09-18 22:40 | DVHPN2 ---
Consult Progress Note Date Seen: Sep 18, 2024 Subjective Patient reports: Other (no signs of hypertension after dialysis yesterday , appears weak but working with physical therapy , no complaints of pain on sacral ulcer ) Objective vital signs Vital Sign Date Time Temp Pulse Resp B/P (MAP) Pulse Ox O2 Delivery O2 Flow Rate FiO2 09/18/24 16:57 98.3 82 18 101/53 (69) 91 98.3 09/18/24 08:05 Room Air* 0 21 Total Intake and Output 09/17/24 09/17/24 09/18/24 15:00 23:00 07:00 Intake Total 926 ml 900 ml Output Total 2100 ml 2475 ml Balance -1174 ml -1575 ml medications Current Medications Medications Dose Ordered Sig/Akiko Route Start Time Stop Time Status Last Admin Dose Admin Vancomycin HCl 200 ml @ 200 mls/hr Q12HR IV 08/10/24 22:00 UNV Diagnostic Test (Pha) 1 strip Q6HR 08/21/24 12:00 Cancel Insulin Human Regular FOLLOW SLIDING SCALE Q6HR SC 08/21/24 12:00 Cancel Dextrose 50 ml UD IV 08/21/24 10:00 Cancel PHYSICAL EXAM: - GENERAL: Alert and oriented x 3. No acute distress. Well-nourished. - EYES: EOMI. Anicteric. - HENT: Moist mucous membranes. No scleral icterus. No cervical lymphadenopathy. - LUNGS: Clear to auscultation bilaterally. No accessory muscle use. - CARDIOVASCULAR: Regular rate and rhythm. No murmur. No JVD. - ABDOMEN: Soft, non-tender and non-distended. No palpable masses. - EXTREMITIES: No edema. Non-tender.?SKIN: No rashes or lesions. Warm. - NEUROLOGIC: No focal neurological deficits. CN II-XII grossly intact, but not individually tested - PSYCHIATRIC: Cooperative. Appropriate mood and affect. laboratory and microbiology Laboratory Tests 09/14/24 14:28 Test 09/14/24 14:28 Range/Units Serum Glucose 123 H 74-106 mg/dL Problem List/Assessment/Plan Problems(with codes): (1) Rhabdomyolysis (2) Decubitus ulcers (3) Hypernatremia (4) Renal failure (5) Sepsis (6) Altered mental state (7) Severe dehydration Problem List/Assessment/Plan ASSESSMENT AND PLAN: ID Problem List: - Chronic sacral decubitus ulcer - Thigh cellulitis - Klebsiella pneumonia - VRE colonization - Sepsis - Penile ulcer DVT Assessment This is a 78-year-old male with a known history of chronic decubitus ulcer. He was found altered and incontinent about three weeks ago, requiring ICU admission and vasopressors. Multiple antibiotic regimens have been used, including meropenem, vancomycin, linezolid, ceftriaxone, azithromycin, and piperacillin- tazobactam (Zosyn). Recent wound cultures grew Klebsiella pneumoniae and VRE (felt to be colonization rather than an active infection). He also has a large left lateral thigh ulceration with necrosis and drainage, non-healing upper back wounds, and a penile ulcer. He is currently off vasopressors and remains on apixaban therapy for an identified DVT. 08/09: meropenem dced 08/10: linezolid dced 09/14: sacral ulcer is stage 1-2 , appears to be clinically stable and off all antibiotics 09/15: whitecount is 6.4 09/16: no signs of acute infection at this time 09/17: patient is being evaluated by urology for gross hematuria , tolerating dialysis and awaiting placement at [facility] 09/18: patient is to be discharged to [facility] post acute Plan: - continue wound care as outpatient - Monitor the patient off all antibiotics - Suspect VRE as colonization; no new antimicrobial coverage for this at present - Continue supportive care with IV fluids as needed, and use pressors if necessary to maintain MAP > 65 - Maintain blood glucose < 180 mg/dL with insulin as needed - Defer management of anticoagulation to the primary team - Continue local wound care and follow up on debridements as necessary Isolation Precautions: standard Assessment and plan were discussed with the patient (and/or appropriate decision-makers) as written above. Plan is subject to change pending new incoming information/diagnostics. Thank you for this consult. ID will continue to follow. Please contact Infectious Disease for any questions or concerns. Electronically signed by: Gil Miller MD, 09/10/2024 Plan discussed with: Other Dietary Evaluation Review Comments: 1. If on Vent Consider Nepro 30ml/hr x 24 hr,( 58g pro 1274 kcal). this will support pt's needs at 100% protein, 94 % kcal. 2. If EN not possible, and NPO > 7 days, consider TPN per pharmacy. 3. If off Vent, and pass speech eval, offer Renal Specific -50g protein 2g Na 3 K Low phos, 4. If off vent on hemo dialysis, pass speech eval, offer Renal Standard 2 gNa 3 K, Low Phos diet. Expected Outcomes/Goals: advance to diet able to eat independently. GIL MILLER MD Sep 18, 2024 22:39
== END 2024-09-18 18:52 | DRG 853 ==
LOC: ER 13:14 → EDUNIT# 13:14 → EDBD 13:14 → TELE 21:12 → ICU WEST 08-13 10:50 → TELE-EAST 09-01 16:47 → TELE-CENTR 09-01 20:56 → CENTRAL 09-07 18:35
PROVIDERS: ADMIT Internal Medicine; ATTEND Internal Medicine
PROC: 5A1955Z Respiratory Ventilation, Greater than 96 Consecutive Hours (ICD-10-PCS; principal; 2024-08-10)
PROC: 0BH17EZ Insertion of Endotracheal Airway into Trachea, Via Natural or Artificial Opening (ICD-10-PCS; 2024-08-10)
PROC: 02HV33Z Insertion of Infusion Device into Superior Vena Cava, Percutaneous Approach (ICD-10-PCS; 2024-08-10)
PROC: B548ZZA Ultrasonography of Superior Vena Cava, Guidance (ICD-10-PCS; 2024-08-10)
PROC: 0B9D8ZX Drainage of Right Middle Lung Lobe, Via Natural or Artificial Opening Endoscopic, Diagnostic (ICD-10-PCS; 2024-08-12)
PROC: 0JB90ZZ Excision of Buttock Subcutaneous Tissue and Fascia, Open Approach (ICD-10-PCS; 2024-08-18)
PROC: 0JB70ZZ Excision of Back Subcutaneous Tissue and Fascia, Open Approach (ICD-10-PCS; 2024-08-18)
PROC: 0JB73ZZ Excision of Back Subcutaneous Tissue and Fascia, Percutaneous Approach (ICD-10-PCS; 2024-08-31)
DX: A41.9 Sepsis, unspecified organism (principal); G93.41 Metabolic encephalopathy; J96.01 Acute respiratory failure with hypoxia; R65.21 Severe sepsis with septic shock; N17.0 Acute kidney failure with tubular necrosis; E87.0 Hyperosmolality and hypernatremia; M62.82 Rhabdomyolysis; R17 Unspecified jaundice; E44.1 Mild protein-calorie malnutrition; I47.10 Supraventricular tachycardia, unspecified; I82.411 Acute embolism and thrombosis of right femoral vein; N39.0 Urinary tract infection, site not specified; L97.129 Non-pressure chronic ulcer of left thigh with unspecified severity; L03.116 Cellulitis of left lower limb; Z20.822 Contact with and (suspected) exposure to COVID-19; E86.0 Dehydration; G20.A1 Parkinson's disease without dyskinesia, without mention of fluctuations; R74.01 Elevation of levels of liver transaminase levels; E88.09 Other disorders of plasma-protein metabolism, not elsewhere classified; D64.9 Anemia, unspecified; E66.3 Overweight; K80.20 Calculus of gallbladder without cholecystitis without obstruction; L89.159 Pressure ulcer of sacral region, unspecified stage; K59.00 Constipation, unspecified; N48.5 Ulcer of penis; L08.9 Local infection of the skin and subcutaneous tissue, unspecified; R31.0 Gross hematuria; E16.2 Hypoglycemia, unspecified; Z68.28 Body mass index [BMI] 28.0-28.9, adult; Z74.01 Bed confinement status; Z82.49 Family history of ischemic heart disease and other diseases of the circulatory system; Z80.0 Family history of malignant neoplasm of digestive organs; Z79.899 Other long term (current) drug therapy; Z79.01 Long term (current) use of anticoagulants; Z75.1 Person awaiting admission to adequate facility elsewhere
CPT/HCPCS: 11042; 11043; 31500; 31624; 36415; 36556; 36600; 70450; 70551; 71045; 74177; 76705; 76775; 80048; 80053; 80202; 80307; 81001; 82140; 82306; 82533; 82550; 82565; 82570; 82607; 82746; 82805; 82962; 83036; 83605; 83735; 83970; 84100; 84156; 84300; 84443; 84478; 84484; 85014; 85018; 85025; 85610; 85730; 86803; 87040; 87070; 87077; 87081; 87086; 87186; 87205; 87340; 87426; 87804; 92507; 92610; 93005; 93306; 93970; 94002; 94003; 97110; 97116; 97163; 97530; 99291; 99292; G0378; J1815; J1885; J2185; J2470; J2543; J2704; J3490; J7060; P9047